=== PATIENT | male | born 1955 | race Caucasian/White ===

== ENCOUNTER 2017-01-13 11:36 | Inpatient (IN) | payer OTHER ==
[~2017-01-13] VITALS: Ht 182.9 cm; Wt 142.9 kg
[~2017-01-13 11:36] MED LIST: AMIODARONE HCL200 M1 PO; ATORVASTATIN CA40 MG PO; CEPHALEXIN500 M3 PO; CIPRO500 M1 PO; COLACE100 M1 PO; COUMADIN10 M1 PO; COUMADIN7.5 M1 PO; FENOFIBRATE160 M1 PO; FLOVENT HF0.22 MG/Ac INH; GABAPENTIN600 M1 PO; IBUPROFEN800 M1 PO; LASIX40 M1 PO; LEVALBUTER1.25 MG/1 PO; LEVEMIR100 UNIT/1 SC; METFORMIN HCL1000 MG PO; METFORMIN HCL850 M1 PO; MIRALAX119 GM PO; NOVOLOG FL100 UNIT/1 SC; OXYCODONE5 M1 PO; PERCOCET 5-3251 EACH PO; POTASSIUM CHLO10 ME3 PO; PREDNISONE10 M2 PO; PRINIVIL5 M1 PO; SENNA PLUS TAB1 EACH PO; SYMBICORT 16010.2 GM INH; TOBRAMYCIN-DEXAM5 ML OPH; TRAMADOL HCL50 M1 PO; TYLENOL325 M1 PO
--- NOTE | 2017-01-13 11:42 | NUR ---
PT TO ED, SENT IN BY DR GARSIA FOR SOB. PT WENT TO SEE DR GARSIA FOR "NORMAL CHECKUP". PT WAS NOTICABLY SOB. PT IS ON 1.5L NC. PT STATES THE LAST 3 DAYS HE HAS BEEN MORE SOB, WORSE WITH EXERTION. UNABLE TO WALK DISTANCES. ALSO C/O WEIGHT GAIN AND EDEMA. ALSO STATES BACK PAIN S/P TRIP AND FALL [address] GARSIA WOULD LIKE TO BE CALLED ABOUT PT.
--- NOTE | 2017-01-13 12:01 | ED DYSPNEA/ASTHMA COMPLAINT ---
History of Present Illness General Chief Complaint: Dyspnea (COPD, CHF, Other) Stated Complaint: SENT BY DR GARSIA FOR EVAL OF SOB Source: patient, old records Exam Limitations: no limitations Vital Signs & Intake/Output Vital Signs & Intake/Output Vital Signs Date Time Temp Pulse Resp B/P Pulse O2 O2 Flow FiO2 Ox Delivery Rate 01/13 1716 98.0 95 18 160/80 93 Nasal 1.5L Cannula 01/13 1607 97.8 86 18 170/56 92 Nasal 1.5L Cannula 01/13 1354 96 Nasal 1.5L Cannula 01/13 1335 96.1 77 18 158/95 95 Nasal 1.5L Cannula 01/13 1208 95 Nasal 1.5L Cannula 01/13 1143 96.7 79 26 173/105 95 Room Air Allergies Coded Allergies: NO KNOWN ALLERGIES (08/21/16) Triage Note: PT TO ED, SENT IN BY DR GARSIA FOR SOB. PT WENT TO SEE DR GARSIA FOR "NORMAL CHECKUP". PT WAS NOTICABLY SOB. PT IS ON 1.5L NC. PT STATES THE LAST 3 DAYS HE HAS BEEN MORE SOB, WORSE WITH EXERTION. UNABLE TO WALK DISTANCES. ALSO C/O WEIGHT GAIN AND EDEMA. ALSO STATES BACK PAIN S/P TRIP AND FALL [address] GARSIA WOULD LIKE TO BE CALLED ABOUT PT. Triage Nurses Notes Reviewed? yes Onset: Abrupt Duration: day(s): (3), constant Timing: recent history Severity: moderate Activities at Onset: activity Prior Episodes/Possible Cause: occasional episodes Modifying Factors: Improves With: rest. Worsens With: movement. Associated Symptoms: cough, weight gain HPI: This is a 61-year-old male with history of CAD s/p IA and stent placement in 2003, Afibon amiodarone and Warfarin, PVD, HTN, type 2 DM with neuropathy, CHF, TOMASZ, Puln HTN, chr. venous insufficiency presents emergency room sent in by his community affairs manager Dr. Garsia complaining of progressively worsening shortness of breath that is worse with exertion associated with increased weight gain bilateral lower extremity swelling over the past 3 days. He is also complaining of a cough productive of clear sputum. He denies chest pain palpitations dizziness lightheadedness, no fever no chills. The patient is on 1-1/2 L of oxygen at baseline, he does not smoke. Denies any abdominal pain nausea vomiting. There's been no recent changes in his medication he's been compliant with his Lasix 40 mg. Symptoms are worse with exertion and climbing stairs improved at rest. There are no other associated symptoms. (IRINEO WEBB) Reconcile Medications Amiodarone HCl 200 MG TABLET 1 TAB PO DAILY AFIB (Reported) Aspirin (Ecotrin*) 81 MG TABLET.DR 1 TAB PO DAILY HEART/BLOOD (Reported) Atorvastatin Calcium 40 MG TABLET 1 TAB PO DAILY CHOLESTEROL (Reported) Budesonide/Formoterol Fumarate (Symbicort 160-4.5 Mcg Inhaler) 10.2 GM HFA.AER.AD 2 PUF INH BID COPD Carvedilol 25 MG TABLET 1 TAB PO BID HEART (Reported) Cholecalciferol (Vitamin D3) (Vitamin D) 2,000 UNIT TABLET 1 TAB PO DAILY SUPPLEMENT (Reported) Cyanocobalamin (Vitamin B-12) (Vitamin B-12) 2,000 MCG TABLET 1 TAB PO DAILY SUPPLEMENT (Reported) Docusate Sodium (Colace) 100 MG CAPSULE 1 CAP PO BID PRN Constipation Fenofibrate 160 MG TABLET 1 TAB PO DAILY CHOLESTEROL (Reported) Fluticasone Propionate (Flovent Hfa) (Unknown Strength) AER.W.ADAP (Unknown Dose) UNKNOWN (Reported) Furosemide (Lasix) 40 MG TABLET 1 TAB PO BID CHF (Reported) Gabapentin 600 MG TABLET 1 TAB PO TID NEUROPATHY (Reported) Insulin Aspart, Recombinant (Novolog Flexpen) 100 UNIT/1 ML INSULN.PEN 0 SC TIDAC/HS DIABETES BLOOD SUGAR BEFORE MEALS UNITS BEDTIME LESS THAN 80 INITIATE HYPOGLYCEMIA 80-150 16 UNITS 151-200 18 UNITS 201-250 20 UNITS 251-300 22 UNITS 4 UNITS 301-350 24 UNITS 6 UNITS 351-400 26 UNITS 8 UNITS 351-400 26 UNITS, CALL 10 UNITS, CALL Insulin Detemir (Levemir Flextouch) 100 UNIT/ML (3 ML) INSULN.PEN 25 UNITS SC BID DM (Reported) Levalbuterol HCl 1.25 MG/3 ML VIAL.NEB 1 INH PO Q4 BREATHING PROBLEMS ( Reported) Lisinopril (Prinivil) 5 MG TABLET 1 TAB PO DAILY HTN (Reported) Metformin HCl 850 MG TABLET 850 MG PO 0800,1700 diabetes Polyethylene Glycol 3350 (Miralax) 119 GM POWDER 17 GM PO AT BEDTIME PRN CONSTIPATION Potassium Chloride 10 MEQ CAPSULE.ER 1 CAP PO DAILY SUPPLEMENT (Reported) Warfarin Sodium (Coumadin) 10 MG TABLET 1 TAB PO AD BLOOD THINNER (Reported) (IRIS SWARTZ DO) Past History Travel History Traveled to [place] past 21 day No Medical History Any Pertinent Medical History? see below for history Neurological: NONE EENT: NONE Cardiovascular: AFIB, CAD, chronic venous insuff, hypertension, hyperlipidemia, myocardial infarction, STENT 2003 Respiratory: bronchitis, COPD, emphysema, obstructive sleep apnea, 02 1.5 L Gastrointestinal: NONE Hepatic: NONE Renal: NONE Musculoskeletal: degen joint disease Psychiatric: NONE Endocrine: diabetes Blood Disorders: DVT LLE Cancer(s): NONE FIRE RANGER/Reproductive: NONE History of MRSA: No History of VRE: No History of CDIFF: No Pneumonia Vaccine: 10/05/09 Surgical History Surgical History: cholecystectomy, knee replacement (left knee), status post aborted maze procedure b/l LE venous sclerotherapy Psychosocial History Who do you live with Family Services at Home Oxygen What is your primary language Occitan Tobacco Use: Quit >30 days ago ETOH Use: denies use Illicit Drug Use: denies illicit drug use Family History Family History, If Any: FATHER FH: heart attack FH: HTN (hypertension) MOTHER FH: heart attack FH: HTN (hypertension) FHx: stroke SISTER FH: breast cancer FH: CHF (congestive heart failure) Hx Contributory? No (IRINEO WEBB) Review of Systems Review of Systems Constitutional: Reports: see HPI. All Other Systems: Reviewed and Negative Comments Review of systems: See HPI, All other systems negative. Constitutional, no chills no fever, no malaise HEENT: no sore throat no congestion, no ear pain Cardiovascular: No chest pain , no palpitation , orthopnea ankle swelling Skin, no rashes, no change in skin Respiratory: dyspnea no cough no sputum no hemoptysis GI: No nausea no vomiting, no diarrhea, no bloating/constipation : No dysuria No hematuria, Muscle skeletal: No joint pain, no joint swelling, no back pain, no neck pain, Neurologic: No numbness no headache Psych: No stress Heme/endocrine: No bruising no bleeding Immunology: No lymphadenopathy (IRINEO WEBB) Physical Exam Physical Exam General Appearance: well developed/nourished, alert, awake Respiratory: normal breath sounds Comments: Well-developed well-nourished person in no acute distress HEENT: Normal EENT exam; PERRL, EOMI HEAD is atraumatic. moist mucous membranes. Neck: Supple,normal range of motion Back: Nontender, no CVA tenderness. Full range of motion Cardiovascular: Irregular rate and rhythm no murmurs rubs or gallops Respiratory: No respiratory distress. Patient speaking in full complete sentences. Breath sounds clear to auscultation bilaterally: NO W/R/R Abdomen: Soft, nontender nondistended, no appreciable organomegaly. Normal bowel sounds. No rebound/guarding, No appreciable enlargement of the abdominal aorta, No ascites. Extremity: 3+ bilateral lower extremity edema, full range of motion of extremities, normal and equal pulses bilaterally, 5 out of 5 strength noted to bilateral upper and lower extremities Neuro: Alert oriented x3, motor sensory normal, cranial nerves II through XII grossly intact. There were no obvious focal neurologic abnormalities. Skin: No appreciable rash on exposed skin, skin is warm and dry. Psych: Mood and affect is normal, memory and judgment is normal. Core Measures ACS in differential dx? Yes Severe Sepsis Present: No Septic Shock Present: No (ARTURO WORKMAN,IRINEO) Progress Differential Diagnosis: asthma, AMI, bronchitis, costochondritis, CHF, COPD, musculoskeletal pain, pericarditis, pulmonary embolism, pneumonia, pneumothorax, unstable angina Plan of Care: Orders Procedure Date/time Status BASIC ELECTROLYTES PLUS BUN&CR 01/14 0600 Active CHF Diet 01/13 D Active EKG 01/13 1830 Active TROPONIN LEVEL 01/13 1630 Active Pathway - chart 01/13 1457 Active House Staff 01/13 1457 Active Admit to inpatient 01/13 1435 Active Vital Signs 01/13 1435 Active Code Status 01/13 1435 Active Patient Data 01/13 1413 Active Add-on Test (ER Only) 01/13 1325 Active PARTIAL THROMBOPLASTIN TIME 01/13 1215 Complete PROTHROMBIN TIME 01/13 1215 Complete Telemetry/Right Of Way Agent 01/13 1212 Active TROPONIN LEVEL 01/13 1212 Complete COMPREHENSIVE METABOLIC PANEL 01/13 1212 Complete CBC WITHOUT DIFFERENTIAL 01/13 1212 Complete B-TYPE NATRIURETIC PEP (BNP) 01/13 1212 Complete EKG 01/13 1211 Active Saline Lock 01/13 UNK Active Weight 01/13 UNK Active VTE Mechanical Prophylaxis 01/13 UNK Active Intake & Output 01/13 UNK Active Activity/Ambulation 01/13 UNK Active Current Medications Sig/Ann-Marie Start time Last Medication Dose Stop Time Status Admin Furosemide 40 MG DAILY 01/14 1000 AC (Lasix) Laboratory Tests 01/13/17 1215: Anion Gap 10, Estimated GFR > 60, BUN/Creatinine Ratio 31.3 H, Glucose 89, Calcium 9.3, Total Bilirubin 0.9, AST 23, ALT 33, Alkaline Phosphatase 75, Troponin I < 0.01, Tjz-C-Zhafqlrmlko Pept 1350 H, Total Protein 6.4, Albumin 3.7, Globulin 2.7, Albumin/Globulin Ratio 1.4, PT 60.1 *H, INR 5.82 *H, APTT 52 H, CBC w Diff NO MAN DIFF REQ, RBC 4.80, MCV 84.9, MCH 28.4, RDW 15.4 H, MPV 8.9, Gran % 71.6, Lymphocytes % 14.8 L, Monocytes % 6.6, Eosinophils % 6.2 H, Basophils % 0.8, Absolute Granulocytes 4.5, Absolute Lymphocytes 0.9 L, Absolute Monocytes 0.4, Absolute Eosinophils 0.4, Absolute Basophils 0, PUBS MCHC 33.4 Labs ordered alert. Chest x-ray lumbar spine x-ray ordered Lasix 40 mg IV Solu- Medrol breathing treatment ordered On repeat evaluation patient reports pain is improved, patient was declining lumbar x-ray is lab results, pending callback from his community affairs manager (ARTURO WORKMAN,IRINEO) Diagnostic Imaging: Viewed by Me: Radiology Read. Discussed w/RAD: Radiology Read. Radiology Impression: PATIENT: LYNETTE SMITH PRESENT AGE: 61 PATIENT ACCOUNT NO: [id number] : 55 LOCATION: [facility] ORDERING PHYSICIAN: IRINEO WORKMAN SERVICE DATE: 01/13/17 EXAM TYPE: RAD - XRY-CHEST XRAY, PA AND LATERAL EXAMINATION: XR CHEST CLINICAL INFORMATION: Cough and dyspnea, evaluate for congestive heart failure. COMPARISON: 08/20/2016 , TECHNIQUE: 2 views of the chest were obtained. FINDINGS: The heart remains enlarged with mild cephalization of the pulmonary vasculature and subtle diffuse increase in interstitial markings which appears slightly increased compared with the most recent examination suggesting mild pulmonary edema. No definite pleural effusions are identified. No focal infiltrate is seen. IMPRESSION: Mild pulmonary edema is suggested slightly increased from the most recent exam. No focal infiltrate to suggest pneumonia. DICTATED BY: CLIFFORD CALLE MD DATE/ TIME DICTATED:01/13/171330 MANAGEMENT LECTURER:SONDRA DATE/TIME TRANSCRIBED: 01/13/171330 CONFIDENTIAL, DO NOT COPY WITHOUT APPROPRIATE AUTHORIZATION. < Electronically signed in Other Vendor System> SIGNED BY: CLIFFORD CALLE MD 01/13/171338 Initial ED EKG: AFIB AT 70, NO ACUTE ST SEG CHANGES, NORMAL AXIS Prior EKG: unchanged (07/2016) (IRINEO WEBB) Departure Departure Time of Disposition: 1409 Disposition: STILL A PATIENT Condition: Stable Clinical Impression Primary Impression: CHF exacerbation Referrals: Mike GARSIA MD (PCP/Family) Departure Forms: Customer Survey General Discharge Information Admission Note Spoke With: Mike GARSIA MD Documentation of Exam: Documentation of any treatments & extenuating circumstances including Concerns Regarding Discharge (functional status, medication knowledge or non-compliance, living conditions, etc.) that warrant an admission rather than observation: TREND LABS, TROPONIN, CARDIOLOGY, PULM CONSULT, IV DIURESIS, PREAMTURE DISCHARGE WOULD BE MEDICALLY HARMFUL. (IRINEO WEBB) PA/SURGERY NURSE Co-Sign Statement Statement: ED Attending supervision documentation- [X] I saw and evaluated the patient. I have also reviewed all the pertinent lab results and diagnostic results. I agree with the findings and the plan of care as documented in the PA's/SURGERY NURSE's documentation. [] I have reviewed the ED Record and agree with the PA's/SURGERY NURSE's documentation. [] Additions or exceptions (if any) to the PAs/SURGERY NURSE's note and plan are summarized below: [] (IRIS SWARTZ DO) Critical Care Note Critical Care Note Critical Care Time: non-applicable (IRINEO WEBB)
--- NOTE | 2017-01-13 12:07 | NUR ---
PT TO ROOM17 BY WHEELCHAIR, CHANGED INTO HOSPITAL GOWN, PLACED ON OCCUPATIONAL HEALTH PHYSIOTHERAPIST, O2SAT 95% ON O2 1.5L LAYLA. JI MORRIS AT BEDSIDE FOR PT EVAL.
[2017-01-13 12:21] LABS: ABSOLUTE BASOPHIL COUNT 0 /CUMM (0.0-0.2); ABSOLUTE EOSINOPHIL COUNT 0.4 /CUMM (0.0-0.7); ABSOLUTE GRANULOCYTE CT 4.5 /CUMM (1.4-6.5); ABSOLUTE LYMPH COUNT 0.9 /CUMM (1.2-3.4); ABSOLUTE MONOCYTE COUNT 0.4 /CUMM (0.10-0.60); BASOPHIL % 0.8 % (0.0-2.0); EOSINOPHIL % 6.2 % (0-5); GRANULOCYTE % 71.6 % (42.2-75.2); HEMATOCRIT 40.8 % (42-52); MEAN CORPUSCULAR HGB 28.4 PG (27.0-31.0); MEAN CORPUSCULAR HGB CONC 33.4 G/DL (33.0-37.0); MEAN CORPUSCULAR VOLUME 84.9 FL (80.0-94.0); MEAN PLATELET VOLUME 8.9 FL (7.4-10.4); PLATELET COUNT 215 /CUMM (130-400); RBC DISTRIBUTION WIDTH 15.4 % (11.5-14.5); WHITE BLOOD CELL COUNT 6.2 /CUMM (4.8-10.8)
--- NOTE | 2017-01-13 12:38 | NUR ---
BLOOD DRAWN AND SENT TO LAB-SST,LAV,BLUE,HUNG. IV EST RF G20, PT MEDICATED PER EMAR AND SENT TO RAD BY STRETCHER.
--- NOTE | 2017-01-13 13:04 | NUR ---
PT RETURNED FROM RAD, URINAL PROVIDED.
--- NOTE | 2017-01-13 13:26 | NUR ---
JI MORRIS TO BEDSIDE TO DISCUSS TEST RESULTS AND POC.
--- NOTE | 2017-01-13 13:33 | NUR ---
RESP CALLED FOR DUONEB, FOOD ORDERED.
--- NOTE | 2017-01-13 13:39 | RADIOLOGY REPORT ---
EXAMINATION: XR CHEST CLINICAL INFORMATION: Cough and dyspnea, evaluate for congestive heart failure. COMPARISON: 08/20/2016, TECHNIQUE: 2 views of the chest were obtained. FINDINGS: The heart remains enlarged with mild cephalization of the pulmonary vasculature and subtle diffuse increase in interstitial markings which appears slightly increased compared with the most recent examination suggesting mild pulmonary edema. No definite pleural effusions are identified. No focal infiltrate is seen. IMPRESSION: Mild pulmonary edema is suggested slightly increased from the most recent exam. No focal infiltrate to suggest pneumonia.
[2017-01-13 13:50] LABS: PTT 52 SEC (25-37)
--- NOTE | 2017-01-13 13:50 | NUR ---
RESP AT BEDSIDE FOR DUONEB.
[2017-01-13 14:07] LABS: PT 60.1 SEC (9.4-12.5)
--- NOTE | 2017-01-13 14:07 | NUR ---
CRITICAL TEST RESULTS [id number] LYNETTE SMITH 61 M TESTS AND RESULTS: PT 60.1 INR 5.82 Results received and read back by: YUNIOR CARTER Results received date and time: 01/13/17 1407 The following provider was notified of the results, and read the results back: JI MORRIS Notified date and time: 01/13/17 at 1407
--- NOTE | 2017-01-13 14:20 | NUR ---
FOOD TRAY PROVIDED TO PT.
--- NOTE | 2017-01-13 14:21 | History & Physical ---
CIARRA ELIAS MDRIE 01/13/17 1416: General Information and HPI MD Statement: I have seen and personally examined LYNETTE SMITH and documented this H&P. The patient is a 61 year old M who presented with a patient stated chief complaint of [SOB]. 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 venous insufficiency, was sent in from Dr. Serrato's office for worsening dyspnea. His shortness of breath worsened about 4 days ago to the point that he was not to walk even a couple of steps. He has not been able to sleep and eat for 1.5 days because of the dyspnea. He has approximately 15 lb weight gain over the past 4 days. Nothing makes the dyspnea better. He also used his nebulizer and inhalers without any relief. He also had cough productive of thick dark green sputum that started 3-4 days ago without fever, chills, or sick contacts. He has not seen Dr. Esparza since prior admission in July. 3 days ago, he tripped on the dog's bed while he was walking in the dark, and hit the left side of his back, and has a small laceration over his right knee. He denied loss of consciousness or palpitations. He is convinced that it was purely a mechanical fall. He has had 9/10 constant nagging back pain since the fall and has been taking aleve and percocet to help with the pain. Allergies/Medications Allergies: Coded Allergies: NO KNOWN ALLERGIES (08/21/16) Past History Travel History Traveled to [place] past 21 day No Medical History Neurological: NONE EENT: NONE Cardiovascular: AFIB, CAD, chronic venous insuff, hypertension, hyperlipidemia, myocardial infarction, STENT 2003 Respiratory: bronchitis, COPD, emphysema, obstructive sleep apnea, 02 1.5 L Gastrointestinal: NONE Hepatic: NONE Renal: NONE Musculoskeletal: degen joint disease Psychiatric: NONE Endocrine: diabetes Blood Disorders: DVT LLE Cancer(s): NONE HELICOPTER DISPATCHER/Reproductive: NONE History of MRSA: No History of VRE: No History of CDIFF: No Pneumonia Vaccine: 10/05/09 Surgical History Surgical History: cholecystectomy, knee replacement (left knee), status post aborted maze procedure b/l LE venous sclerotherapy Past Family/Social History Family History Relations & Conditions if any FATHER FH: heart attack FH: HTN (hypertension) MOTHER FH: heart attack FH: HTN (hypertension) FHx: stroke SISTER FH: breast cancer FH: CHF (congestive heart failure) Psychosocial History Who Do You Live With? spouse Services at Home: Oxygen Primary Language: Kosovan ETOH Use: denies use Illicit Drug Use: denies illicit drug use Living Will? no Power of Outpatient Interviewing Clerk/HCP? no Functional Ability ADLs Independent: dressing, eating, toileting, bathing. Ambulation: cane IADLs Independent: shopping, housework, finances, food prep, telephone, transportation , medication admin. Review of Systems Review of Systems Constitutional: Denies: chills, fever. EENTM: Denies: double vision, visual changes. Cardiovascular: Reports: edema, orthopena, peripheral edema. Denies: chest pain, palpitations. Respiratory: Reports: cough, short of breath, sputum production. Denies: wheezing. GI: Denies: abdominal pain, bloating, constipation, diarrhea, nausea, vomiting. Genitourinary: Denies: dysuria. Exam & Diagnostic Data Last 24 Hrs of Vital Signs/I&O Vital Signs Date Time Temp Pulse Resp B/P Pulse O2 O2 Flow FiO2 Ox Delivery Rate 01/13 1607 97.8 86 18 170/56 92 Nasal 1.5L Cannula 01/13 1354 96 Nasal 1.5L Cannula 01/13 1335 96.1 77 18 158/95 95 Nasal 1.5L Cannula 01/13 1208 95 Nasal 1.5L Cannula 01/13 1143 96.7 79 26 173/105 95 Room Air Intake & Output 01/13 1600 01/13 0800 01/13 0000 Intake Total Output Total Balance Patient 138.346 kg Weight Physical Exam General Appearance Alert, Oriented X3, Cooperative, noticably dyspneic sitting at the edge of the bed Skin dry blister on right klein, healing laceration on right knee, venous insufficiency changes HEENT Atraumatic, PERRLA Neck Supple, No JVD Cardiovascular Regular Rate, Normal S1, Normal S2, No Murmurs Lungs Clear to Auscultation, Normal Air Movement Abdomen Normal Bowel Sounds, Soft, No Tenderness Neurological Normal Speech Extremities 3+ pitting edema bilaterally up to the knees Last 24 Hrs of Labs/[place]: Laboratory Tests 01/13/17 1215: Anion Gap 10, Estimated GFR > 60, BUN/Creatinine Ratio 31.3 H, Glucose 89, Calcium 9.3, Total Bilirubin 0.9, AST 23, ALT 33, Alkaline Phosphatase 75, Troponin I < 0.01, [id number] Pept 1350 H, Total Protein 6.4, Albumin 3.7, Globulin 2.7, Albumin/Globulin Ratio 1.4, PT 60.1 *H, INR 5.82 *H, APTT 52 H, CBC w Diff NO MAN DIFF REQ, RBC 4.80, MCV 84.9, MCH 28.4, RDW 15.4 H, MPV 8.9, Gran % 71.6, Lymphocytes % 14.8 L, Monocytes % 6.6, Eosinophils % 6.2 H, Basophils % 0.8, Absolute Granulocytes 4.5, Absolute Lymphocytes 0.9 L, Absolute Monocytes 0.4, Absolute Eosinophils 0.4, Absolute Basophils 0, PUBS MCHC 33.4 Diagnostic Data EKG Results A fib rate 75 CXR Results IMPRESSION: Mild pulmonary edema is suggested slightly increased from the most recent exam. No focal infiltrate to suggest pneumonia. 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 venous insufficiency, was sent in from Dr. Serrato's office for worsening dyspnea, 15 lb weight gain, cough productive of thick green sputum, and mechanical fall. Problem list: # CHF exacerbation with 15 lb weight gain, increased dyspnea # COPD on 1.5 L O2, with thick green sputum # Back pain due to mechanical fall # CHF exacerbation with 15 lb weight gain, increased dyspnea - sleeps on recliner at baseline * Strict Is and Os * IV lasix (home dose 40 mg PO) # COPD on 1.5 L O2, with thick green sputum * Follow respiratory culture, gram stain * Will consult Dr. Esparza in am * TRC, nebs, symbicort # TOMASZ * Supposed to be on autopap but not compliant # Back pain due to mechanical fall * Pain control with percocet and NSAID # IDDM - Home metformin, novolog, and levemir * Follow up hba1c * Continue accucheck, insulin sliding scale and levemir # Atrial fibrillation * Continue amiodarone 200 mg daily * INR 5.82-Hold warfarin for today # Hx of CAD s/p NV & stent placement and HTN * Continue Lisinopril 5 mg daily # DM neuropathy * continue Neurontin 600 TID # HLD * Continue statin # Constipation * Continue colace, miralax Diet: CC3, 2 gm sodium restriction DVT ppx: mech and pharm (hold warfarin for supratherapeutic INR) FULL CODE As Ranked By This Provider Problem List: 1. CHF exacerbation Core Measures/Miscellaneous Acute Coronary Syndrome ACS Diagnosis: No Cerebrovascular Accident CVA/TIA Diagnosis: No Congestive Heart Failure CHF Diagnosis: Yes Venous Thromboembolism VTE Risk Factors: Acute medical illness VTE Prophylaxis Ordered Inpt: Mech & Pharm No Mech VTE prophylaxis d/t: No contraindications No VTE Pharm Prophylaxis d/t: No contraindications VTE Diagnosis: No VTE Type: NONE VTE Confirmed by (Test): NONE Severe Sepsis Severe Sepsis Present: No Septic Shock Septic Shock Present: No Miscellaneous Documentation Attending Case Discussed With: Mike SERRATO MD Primary Care Physician: Mike SERRATO MD Patient sees these Specialists Dr. Esparza Pulmonology Dr. 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 Patient was at Dr. serrato office today, he noticed to be SOB, and worsening LE edema. Patient report worsening symptoms over the last 3 days, he report chest congestion, he induce hisself to cough and he brought up white phlegm initially which turns green with no blood. No chest pain, palpitation, fever, chills and there is no change in urianry or bowel habits. At admission his vitals was stable, he is on 1.5L NC with 95% O2 sat, BP was 173 /105 initially which improved to 158/95. Exam is pertinent to B/L basilar crackles and +3 edema CXR:Mild pulmonary edema is suggested slightly increased from the most recent exam. No focal infiltrate to suggest pneumonia. Assessment: -CHF exacerbation -COPD on 1.5L O2 at home -Hx. of A.fib -Supratherpaeutic INR -Hx. of HTN -Hx. of HLD -Hx. of diabetes Plan: Admitt to telemetry floor Trend EKG and troponin Echocardiogram Pulmonology consult with Strict I's&O's Daily weight Continue diuresis Will continue BP home meds Coumadin on hold Accucheck Insulin sliding scale Heart healthy diet Pain management pathway Full code DVT PPX BETSEY SERRATO MD,LETICIA N 01/14/17 1233: General Information and HPI Allergies/Medications Home Med list Amiodarone HCl 200 MG TABLET 1 TAB PO DAILY AFIB (Reported) Aspirin (Ecotrin*) 81 MG TABLET.DR 1 TAB PO DAILY HEART/BLOOD (Reported) Atorvastatin Calcium 40 MG TABLET 1 TAB PO DAILY CHOLESTEROL (Reported) Budesonide/Formoterol Fumarate (Symbicort 160-4.5 Mcg Inhaler) 10.2 GM HFA.AER.AD 2 PUF INH BID COPD Carvedilol 25 MG TABLET 1 TAB PO BID HEART (Reported) Cholecalciferol (Vitamin D3) (Vitamin D) 2,000 UNIT TABLET 1 TAB PO DAILY SUPPLEMENT (Reported) Cyanocobalamin (Vitamin B-12) (Vitamin B-12) 2,000 MCG TABLET 1 TAB PO DAILY SUPPLEMENT (Reported) Docusate Sodium (Colace) 100 MG CAPSULE 1 CAP PO BID PRN Constipation Fenofibrate 160 MG TABLET 1 TAB PO DAILY CHOLESTEROL (Reported) Fluticasone Propionate (Flovent Hfa) (Unknown Strength) AER.W.ADAP (Unknown Dose) UNKNOWN (Reported) Furosemide (Lasix) 40 MG TABLET 1 TAB PO BID CHF (Reported) Gabapentin 600 MG TABLET 1 TAB PO TID NEUROPATHY (Reported) Insulin Aspart, Recombinant (Novolog Flexpen) 100 UNIT/1 ML INSULN.PEN 0 SC TIDAC/HS DIABETES BLOOD SUGAR BEFORE MEALS UNITS BEDTIME LESS THAN 80 INITIATE HYPOGLYCEMIA 80-150 16 UNITS 151-200 18 UNITS 201-250 20 UNITS 251-300 22 UNITS 4 UNITS 301-350 24 UNITS 6 UNITS 351-400 26 UNITS 8 UNITS 351-400 26 UNITS, CALL MD 10 UNITS, CALL MD Insulin Detemir (Levemir Flextouch) 100 UNIT/ML (3 ML) INSULN.PEN 25 UNITS SC BID DM (Reported) Levalbuterol HCl 1.25 MG/3 ML VIAL.NEB 1 INH PO Q4 BREATHING PROBLEMS ( Reported) Lisinopril (Prinivil) 5 MG TABLET 1 TAB PO DAILY HTN (Reported) Metformin HCl 850 MG TABLET 850 MG PO 0800,1700 diabetes Nicotine (Nicoderm Cq) 14 MG/24 HOUR PATCH.TD24 1 PAT TOP DAILY smoking cessation Polyethylene Glycol 3350 (Miralax) 119 GM POWDER 17 GM PO AT BEDTIME PRN CONSTIPATION Potassium Chloride 10 MEQ CAPSULE.ER 1 CAP PO DAILY SUPPLEMENT (Reported) Warfarin Sodium (Coumadin) 10 MG TABLET 1 TAB PO AD BLOOD THINNER (Reported) Attending MD Review Statement Attending Statement Attending MD Statement: examined this patient, discuss w/resident/PA/MANPOWER DEVELOPMENT MANAGER, agreed w/resident/PA/MANPOWER DEVELOPMENT MANAGER, discussed with family, reviewed EMR data (avail), discussed with nursing, discussed with case mgmt, reviewed images, amended to note Attending Assessment/Plan: The patient is a 61-year-old male with multiple medical issues who is well-known to me. I saw the patient in the office earlier today. At that time, he was dramatically short of breath with marked exertional dyspnea and dyspnea at rest, unable to carry on a conversation without shortness of breath. The patient was sent to the emergency room for further evaluation. In the emergency room, the patient's chest x-ray confirmed presence of congestive heart failure. The patient is now admitted to the hospital with obvious fluid retention, probable diastolic heart failure, and exacerbation of underlying pulmonary disease issues. Recommendations: -As discussed with house staff -Admit patient to telemetry -IV Lasix 40 mg twice a day -Hold laboratories in the morning -Strict intakes, outputs, and daily weight monitoring -Pulmonary consultation with Dr. Esparza has been called in by me. -Continue nebulizers for now pending pulmonary input -Pain control for back pain issues.
--- NOTE | 2017-01-13 14:48 | NUR ---
HOUSE STAFF AT BEDSIDE FOR PT EVAL.
--- NOTE | 2017-01-13 15:16 | NUR ---
PT HAS BED ASSIGNMENT 185-1
[2017-01-13] MEDS ORDERED: LEVEMIR FL100 UNIT/1 SC (15:31)
[2017-01-13] MEDS ORDERED: CARVEDILOL25 M1 PO (15:33)
[2017-01-13] MEDS ORDERED: COUMADIN10 M1 PO (15:33)
[2017-01-13] MEDS ORDERED: FLOVENT HFA12 GM (15:35)
[2017-01-13] MEDS ORDERED: ASPIRIN EC81 M1 PO (15:36)
[2017-01-13] MEDS ORDERED: ATORVASTATIN CA40 M1 PO (15:36)
[2017-01-13] MEDS ORDERED: VITAMIN D2000 UNI1 PO (15:37)
[2017-01-13] MEDS ORDERED: VITAMIN B-122000 MC1 PO (15:37)
--- NOTE | 2017-01-13 16:12 | NUR ---
REPORT GIVEN TO JOSE ROSAS IN TELE, DISTRIBUTION CALLED FOR TRANSPORTATION.
[2017-01-13 17:16] VITALS: BP 160/80
--- NOTE | 2017-01-13 19:47 | NUR ---
PT TRANSFERED TO IN FROM ER ON 01/13/17 AT ABOUT 1700. PT IS A/O X3. SPEECH CLEAR. FACIAL SYM WNL. HE IT ON 1.5 L O2 NC. PT IS SOB UPON AMBULATION. HE IS STEADY WALKING WITH CANE. PT REFUSSED BED ALARM- JEWEL SUPERVISOR KO AWARE. 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 +2 PITTING EDEMA OF BLE. IV TO RFA FLUSHED/PATENT. + BS IN ALL 4 QUADRENTS. WELCOME PACKET RECIEVED BY PT. BRYANNA MAINTAINED. CALL POWERS WITHIN REACH.
[2017-01-14 00:12] VITALS: BP 120/60
--- NOTE | 2017-01-14 06:40 | PN- Housestaff ---
Subjective Follow-up For: CHF exacerbation back pain Tele-Events Since Last Visit: Afib 70-80s, with PVCs Subjective: Pt seen and examined today, shortness of breath has improved. He complains of 10/10 back pain, which came down to 7.5 after po dilaudid. As discussed with the attending, Dr. Cosby, pt has agreed to try percocet and NSAID for pain as he will not be prescribed dilaudid as an outpatient. LBM yesterday. He was only able to sleep for about 30 minutes. INR came down, dosed warfarin 7.5 mg today. Review of Systems Constitutional: Denies: chills, fever. EENTM: Denies: visual changes. Cardiovascular: Denies: chest pain, palpitations. Respiratory: Reports: cough, short of breath, sputum production, wheezing. Gastrointestinal: Denies: abdominal pain, bloating, constipation, diarrhea. Objective Last 24 Hrs of Vital Signs/I&O Vital Signs Date Time Temp Pulse Resp B/P Pulse O2 O2 Flow FiO2 Ox Delivery Rate 01/14 1153 96 Nasal 1.5L Cannula 01/14 1006 Nasal 1.5L Cannula 01/14 0949 66 142/67 01/14 0949 66 142/67 01/14 0948 66 142/67 01/14 0811 97.9 66 17 142/67 96 Nasal 1.5L Cannula 01/14 0012 97.5 82 18 120/60 92 Room Air 01/14 0000 Nasal 1.5L Cannula 01/13 2051 95 160/80 01/13 2051 95 160/80 01/13 1759 95 Nasal 1.5L Cannula 01/13 1716 98.0 95 18 160/80 93 Nasal 1.5L Cannula 01/13 1607 97.8 86 18 170/56 92 Nasal 1.5L Cannula Intake & Output 01/14 1600 01/14 0800 01/14 0000 Intake Total 240 320 Output Total 600 1560 Balance -360 -1240 Intake, IV 20 Intake, Oral 240 300 Output, Urine 600 1560 Patient 147.077 kg 142.882 kg Weight Physical Exam General Appearance: Alert, Oriented X3, Cooperative, No Acute Distress Skin: chronic venous insufficiency changes HEENT: Atraumatic, PERRLA Neck: Supple Cardiovascular: Normal S1, Normal S2, irregular rate Lungs: mild exp wheeze Abdomen: Normal Bowel Sounds, Soft, No Tenderness Neurological: Normal Speech Extremities: 3+ pitting edema bilaterally up to the knees, improved from yesterday Vascular: Normal Pulses Current Medications: Current Medications Sig/Ann-Marie Start time Last Medication Dose Route Stop Time Status Admin Acetaminophen 650 MG Q6P PRN 01/13 2015 AC PO Albuterol Sulfate 3 ML BID 01/14 1030 AC 01/14 INH 1139 Amiodarone HCl 200 MG DAILY 01/14 1000 AC 01/14 PO 0948 Aspirin Buffered 81 MG DAILY 01/14 1000 AC 01/14 PO 0949 Atorvastatin Calcium 40 MG 1700 01/14 1700 AC PO Azithromycin 250 MG DAILY 01/14 1415 AC PO 01/18 1200 Budesonide/ 2 PUF BID 01/13 2200 AC 01/14 Formoterol Fumarate INH 0948 Carvedilol 25 MG BID 01/13 2200 AC 01/14 PO 0949 Cholecalciferol 1,000 IU DAILY 01/14 1000 AC 01/14 PO 0949 Cyanocobalamin 1,000 MCG DAILY 01/14 1000 AC 01/14 PO 0949 Fenofibrate 145 MG DAILY 01/14 1000 AC 01/14 PO 0949 Furosemide 40 MG DAILY 01/14 1000 AC 01/14 IV 0948 Gabapentin 600 MG Q8 01/13 2200 AC 01/14 PO 1500 Hydromorphone HCl 2 MG ONCE ONE 01/14 0630 DC 01/14 PO 01/14 0631 0657 Hydromorphone HCl 0.5 MG ONCE ONE 01/14 0200 DC 01/14 IV 01/14 0201 0214 Hydromorphone HCl 1 MG ONCE ONE 01/13 1600 DC 01/13 IV 01/13 1601 1559 Hydromorphone HCl 0 .STK-MED ONE 01/13 1556 DC .ROUTE Ibuprofen 600 MG Q6P PRN 01/14 1415 AC PO Insulin Aspart 0 TIDAC 01/14 0800 AC 01/14 SC 1215 Insulin Aspart 0 AT BEDTIME 01/13 2200 AC SC Insulin Detemir 25 UNITS BID 01/13 2200 CAN SC Insulin Detemir 25 UNITS BID 01/13 2200 AC 01/14 SC 0949 Insulin Human Regular 0 TIDAC/HS 01/13 2100 CAN SC Ipratropium [place] 2.5 ML BID 01/14 1030 AC INH Lisinopril 5 MG DAILY 01/13 1855 AC 01/14 PO 0949 Morphine Sulfate 1 MG Q12P PRN 01/13 2015 AC 01/13 IV 2140 Nicotine 14 MG DAILY 01/14 1000 AC 01/14 TOP 0948 Oxycodone/ 1 TAB Q6P PRN 01/13 2015 AC 01/14 Acetaminophen PO 1501 Polyethylene Glycol 17 GM AT BEDTIME PRN 01/13 2200 AC PO Potassium Chloride 10 MEQ DAILY 01/14 1000 AC 01/14 PO 0949 Prednisone 30 MG DAILY 01/14 1404 AC PO Warfarin Sodium 7.5 MG COUMADIN 1700 ONE 01/14 1700 AC PO 01/14 1701 Last 24 Hrs of Lab/[place] Results Last 24 Hrs of Labs/Mics: Laboratory Tests 01/14/17 0924: PT 29.8 H, INR 2.87 H 01/14/17 0630: Anion Gap 15, Estimated GFR > 60, BUN/Creatinine Ratio 35.6 H 01/13/17 1920: Troponin I 0.02 Microbiology 01/14 819 LOWER RESP: Respiratory Culture - COLB 01/14 819 LOWER RESP: Gram Stain - COLB Assessment/Plan Assessment: 60-year-old male with PMH of CAD s/p NH and stent placement in 2003, CHF, COPD on 1.5 L home O2, Afib on amiodarone and Warfarin, PVD, HTN, 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 venous insufficiency, was sent in from Dr. Cosby's office for worsening dyspnea, 15 lb weight gain, cough productive of thick green sputum, and mechanical fall. Problem list: # CHF exacerbation with 15 lb weight gain, increased dyspnea # COPD on 1.5 L O2, with thick green sputum # Back pain due to mechanical fall # CHF exacerbation with 15 lb weight gain, increased dyspnea - sleeps on recliner at baseline * Strict Is and Os * IV lasix 40 mg bid (home dose 40 mg PO) # COPD on 1.5 L O2, with thick green sputum * Follow respiratory culture, gram stain * Pulm consult with Dr. Esparza * TRC, nebs, symbicort * Azithromycin day 1 * Prednisone 30 mg started , watch blood sugar on steroids # TOMASZ * Supposed to be on autopap but not compliant # Back pain due to mechanical fall * Pain control with percocet and NSAID * Avoid dilaudid for pain # IDDM - Home metformin, novolog, and levemir * Follow up hba1c * Continue accucheck, insulin sliding scale and levemir # Atrial fibrillation - INR 5.82 --> 2.87 * Continue amiodarone 200 mg daily * Daily INR and warfarin # Hx of CAD s/p NH & stent placement and HTN * Continue Lisinopril 5 mg daily # DM neuropathy * continue Neurontin 600 TID # HLD * Continue statin # Constipation * Continue colace, miralax Diet: CC3, 2 gm sodium restriction DVT ppx: mech and pharm (hold warfarin if supratherapeutic INR) FULL CODE Problem List: 1. CHF exacerbation Pain Ratin Pain Location: back Pain Goal: Pain 7 or less Pain Plan: percocet nsaid Tomorrow's Labs & Rationales: inr for warfarin dose DVT/Prophylaxis: mechanical, pharmacological
[2017-01-14 08:11] VITALS: BP 142/67
[2017-01-14] MEDS ORDERED: NICODERM CQ1 EAC1 TOP (08:20)
--- NOTE | 2017-01-14 09:04 | Cons- Pulmonary ---
General Information and HPI Consulting Request Date of Consult: 01/14/17 Requested By: Dr. Cosby Reason for Consult: Shortness of breath Source of Information: patient, old records Exam Limitations: no limitations History of Present Illness: The patient is a 61-year-old male well-known to me from previous outpatient visits and hospitalizations. He has a past mental history significant for CAD status post [place] with stent placement in 2003, recurrent congestive heart failure, COPD on 1.5 L home oxygen, atrial fibrillation on amiodarone and warfarin, severe peripheral vascular disease, venous insufficiency, hypertension, type 2 diabetes with neuropathy, and obstructive sleep apnea, noncompliant with nasal CPAP. The patient presented with a four-day history of increased shortness of breath. This was associated with an increased cough productive of thick green sputum. He has had a 15 pound weight gain over the past 4 days with increased lower extremity edema. The patient was using a nebulizer, Symbicort and Spiriva at home without improvement. He also has multiple musculoskeletal complaints after a fall at home. The patient reports feeling improved since admission. He denies any further complaints. Allergies/Medications Allergies: Coded Allergies: NO KNOWN ALLERGIES (08/21/16) Home Med List: Amiodarone HCl 200 MG TABLET 1 TAB PO DAILY AFIB (Reported) Aspirin (Ecotrin*) 81 MG TABLET.DR 1 TAB PO DAILY HEART/BLOOD (Reported) Atorvastatin Calcium 40 MG TABLET 1 TAB PO DAILY CHOLESTEROL (Reported) Budesonide/Formoterol Fumarate (Symbicort 160-4.5 Mcg Inhaler) 10.2 GM HFA.AER.AD 2 PUF INH BID COPD Carvedilol 25 MG TABLET 1 TAB PO BID HEART (Reported) Cholecalciferol (Vitamin D3) (Vitamin D) 2,000 UNIT TABLET 1 TAB PO DAILY SUPPLEMENT (Reported) Cyanocobalamin (Vitamin B-12) (Vitamin B-12) 2,000 MCG TABLET 1 TAB PO DAILY SUPPLEMENT (Reported) Docusate Sodium (Colace) 100 MG CAPSULE 1 CAP PO BID PRN Constipation Fenofibrate 160 MG TABLET 1 TAB PO DAILY CHOLESTEROL (Reported) Fluticasone Propionate (Flovent Hfa) (Unknown Strength) AER.W.ADAP (Unknown Dose) UNKNOWN (Reported) Furosemide (Lasix) 40 MG TABLET 1 TAB PO BID CHF (Reported) Gabapentin 600 MG TABLET 1 TAB PO TID NEUROPATHY (Reported) Insulin Aspart, Recombinant (Novolog Flexpen) 100 UNIT/1 ML INSULN.PEN 0 SC TIDAC/HS DIABETES BLOOD SUGAR BEFORE MEALS UNITS BEDTIME LESS THAN 80 INITIATE HYPOGLYCEMIA 80-150 16 UNITS 151-200 18 UNITS 201-250 20 UNITS 251-300 22 UNITS 4 UNITS 301-350 24 UNITS 6 UNITS 351-400 26 UNITS 8 UNITS 351-400 26 UNITS, CALL 10 UNITS, CALL Insulin Detemir (Levemir Flextouch) 100 UNIT/ML (3 ML) INSULN.PEN 25 UNITS SC BID DM (Reported) Levalbuterol HCl 1.25 MG/3 ML VIAL.NEB 1 INH PO Q4 BREATHING PROBLEMS ( Reported) Lisinopril (Prinivil) 5 MG TABLET 1 TAB PO DAILY HTN (Reported) Metformin HCl 850 MG TABLET 850 MG PO 0800,1700 diabetes Nicotine (Nicoderm Cq) 14 MG/24 HOUR PATCH.TD24 1 PAT TOP DAILY smoking cessation Polyethylene Glycol 3350 (Miralax) 119 GM POWDER 17 GM PO AT BEDTIME PRN CONSTIPATION Potassium Chloride 10 MEQ CAPSULE.ER 1 CAP PO DAILY SUPPLEMENT (Reported) Warfarin Sodium (Coumadin) 10 MG TABLET 1 TAB PO AD BLOOD THINNER (Reported) Current Medications: Current Medications Sig/Ann-Marie Start time Last Medication Dose Route Stop Time Status Admin Acetaminophen 650 MG Q6P PRN 01/13 2015 AC PO Albuterol Sulfate 3 ML ONCE ONE 01/13 1330 DC 01/13 INH 01/13 1331 1354 Amiodarone HCl 200 MG DAILY 01/14 1000 AC PO Aspirin Buffered 81 MG DAILY 01/14 1000 AC PO Atorvastatin Calcium 40 MG 1700 01/14 1700 AC PO Budesonide/ 2 PUF BID 01/13 2200 AC 01/13 Formoterol Fumarate INH 2050 Carvedilol 25 MG BID 01/13 2200 AC 01/13 PO 2051 Cholecalciferol 1,000 IU DAILY 01/14 1000 AC PO Cyanocobalamin 1,000 MCG DAILY 01/14 1000 AC PO Fenofibrate 145 MG DAILY 01/14 1000 AC PO Furosemide 40 MG DAILY 01/14 1000 AC IV Furosemide 0 .STK-MED ONE 01/13 1229 DC IV Furosemide 40 MG ONCE ONE 01/13 1215 DC 01/13 IV 01/13 1216 1238 Gabapentin 600 MG Q8 01/13 2200 AC 01/14 PO 0610 Hydromorphone HCl 2 MG ONCE ONE 01/14 0630 DC 01/14 PO 01/14 0631 0657 Hydromorphone HCl 0.5 MG ONCE ONE 01/14 0200 DC 01/14 IV 01/14 0201 0214 Hydromorphone HCl 1 MG ONCE ONE 01/13 1600 DC 01/13 IV 01/13 1601 1559 Hydromorphone HCl 0 .STK-MED ONE 01/13 1556 DC .ROUTE Hydromorphone HCl 0 .STK-MED ONE 01/13 1229 DC .ROUTE Hydromorphone HCl 1 MG ONCE ONE 01/13 1215 DC 01/13 IV 01/13 1216 1238 Insulin Aspart 0 TIDAC 01/14 0800 AC 01/14 SC 0832 Insulin Aspart 0 AT BEDTIME 01/13 2200 AC SC Insulin Detemir 25 UNITS BID 01/13 2200 CAN SC Insulin Detemir 25 UNITS BID 01/13 2200 AC 01/13 SC 2051 Insulin Human Regular 0 TIDAC/HS 01/13 2100 CAN SC Ipratropium [place] 2.5 ML ONCE ONE 01/13 1330 DC 01/13 INH 01/13 1331 1354 Lisinopril 5 MG DAILY 01/13 1855 AC 01/13 PO 2051 Methylprednisolone 0 .STK-MED ONE 01/13 1229 DC .ROUTE Methylprednisolone 125 MG ONCE ONE 01/13 1215 DC 01/13 IV 01/13 1216 1238 Morphine Sulfate 1 MG Q12P PRN 01/13 2015 AC 01/13 IV 2140 Nicotine 14 MG DAILY 01/14 1000 AC TOP Oxycodone/ 1 TAB Q6P PRN 01/13 2015 AC 01/13 Acetaminophen PO 2359 Polyethylene Glycol 17 GM AT BEDTIME PRN 01/13 2200 AC PO Potassium Chloride 10 MEQ DAILY 01/14 1000 AC PO Review of Systems Review of Systems All Other Systems: Reviewed and Negative Past History Travel History Traveled to [place] past 21 day No Medical History Neurological: NONE EENT: NONE Cardiovascular: AFIB, CAD, chronic venous insuff, hypertension, hyperlipidemia, myocardial infarction, STENT 2003 Respiratory: bronchitis, COPD, emphysema, obstructive sleep apnea, 02 1.5 L Gastrointestinal: NONE Hepatic: NONE Renal: NONE Musculoskeletal: degen joint disease Psychiatric: NONE Endocrine: diabetes Blood Disorders: DVT LLE Cancer(s): NONE DENTAL SERVICES DIRECTOR/Reproductive: NONE Surgical History Surgical History: cholecystectomy, knee replacement (left knee), status post aborted maze procedure b/l LE venous sclerotherapy Family History Relations & Conditions If Any: FATHER FH: heart attack FH: HTN (hypertension) MOTHER FH: heart attack FH: HTN (hypertension) FHx: stroke SISTER FH: breast cancer FH: CHF (congestive heart failure) Psychosocial History Who Do You Live With? spouse Services at Home: Oxygen Primary Language: Slovenian Smoking Status: Former Smoker ETOH Use: denies use Illicit Drug Use: denies illicit drug use Living Will? no Power of Scientific Advisor/HCP? no Functional Ability ADLs Independent: dressing, eating, toileting, bathing. Ambulation: cane IADLs Independent: shopping, housework, finances, food prep, telephone, transportation , medication admin. Exam & Diagnostic Data Last 24 Hrs of Vital Signs/I&O Vital Signs Date Time Temp Pulse Resp B/P Pulse O2 O2 Flow FiO2 Ox Delivery Rate 01/14 0811 97.9 66 17 142/67 96 Nasal 1.5L Cannula 01/14 0012 97.5 82 18 120/60 92 Room Air 01/14 0000 Nasal 1.5L Cannula 01/13 2051 95 160/80 01/13 2051 95 160/80 01/13 1759 95 Nasal 1.5L Cannula 01/13 1716 98.0 95 18 160/80 93 Nasal 1.5L Cannula 01/13 1607 97.8 86 18 170/56 92 Nasal 1.5L Cannula 01/13 1354 96 Nasal 1.5L Cannula 01/13 1335 96.1 77 18 158/95 95 Nasal 1.5L Cannula 01/13 1208 95 Nasal 1.5L Cannula 01/13 1143 96.7 79 26 173/105 95 Room Air Intake & Output 01/14 1600 01/14 0800 01/14 0000 Intake Total 240 320 Output Total 600 1560 Balance -360 -1240 Intake, IV 20 Intake, Oral 240 300 Output, Urine 600 1560 Patient 324 lb 315 lb Weight Physical Exam General Appearance: no apparent distress, alert, awake, comfortable Head: atraumatic, normal appearance Eyes: Bilateral: PERRL. Neck: supple Respiratory: no respiratory distress, decreased breath sounds, wheezing Cardiovascular: S1 and S2 are heard, heart sounds are distant Gastrointestinal: normal bowel sounds, soft, non-tender Extremities: 3+ chronic lower extremity edema with chronic venous stasis Skin: intact, warm/dry Last 48 Hrs of Labs/[place]: Laboratory Tests 01/14/17 0630: Anion Gap 15, Estimated GFR > 60, BUN/Creatinine Ratio 35.6 H 01/13/17 1920: Troponin I 0.02 01/13/17 1215: Anion Gap 10, Estimated GFR > 60, BUN/Creatinine Ratio 31.3 H, Glucose 89, Calcium 9.3, Total Bilirubin 0.9, AST 23, ALT 33, Alkaline Phosphatase 75, Troponin I < 0.01, Pok-T-Dgnptzlrebs Pept 1350 H, Total Protein 6.4, Albumin 3.7, Globulin 2.7, Albumin/Globulin Ratio 1.4, PT 60.1 *H, INR 5.82 *H, APTT 52 H, CBC w Diff NO MAN DIFF REQ, RBC 4.80, MCV 84.9, MCH 28.4, RDW 15.4 H, MPV 8.9, Gran % 71.6, Lymphocytes % 14.8 L, Monocytes % 6.6, Eosinophils % 6.2 H, Basophils % 0.8, Absolute Granulocytes 4.5, Absolute Lymphocytes 0.9 L, Absolute Monocytes 0.4, Absolute Eosinophils 0.4, Absolute Basophils 0, PUBS MCHC 33.4 Diagnostic Data CXR Results Mild pulmonary edema is suggested slightly increased from the most recent exam. No focal infiltrate to suggest pneumonia. Assessment/Plan Impression/Plan: 1. Acute exacerbation of COPD. 2. Possible tracheobronchitis. 3. History of recurrent congestive heart failure. 4. Diabetes. 5. Chronic venous stasis. Recommendations: * Start azithromycin 250 mg daily for 5 days. * Start prednisone 30 mg daily, will slowly taper off. * TRC for neb treatments. * Oxygen to maintain saturations greater than 92%. * Continue Symbicort 2 inhalations every 12 hours. * Monitor blood sugars while on steroids. * Diuresis per cardiology. * Check a sputum culture. * Check a bedside spirometry. * Continue all supportive care. Consult Acknowledgment - Thank you for your consult request.
[2017-01-14 10:50] LABS: PT 29.8 SEC (9.4-12.5)
--- NOTE | 2017-01-14 12:36 | PN- Cardiology ---
Subjective Subjective: The patient seems to be doing slightly better today. He has diuresed about 1200 mL. According to the patient, he did not receive any extra Lasix last night. He is also unhappy that he has not had optimum pain control and that he received no nebulizer treatments over the last 12 hours. Objective Vital Signs and I&Os Vital Signs Date Time Temp Pulse Resp B/P Pulse O2 O2 Flow FiO2 Ox Delivery Rate 01/14 1153 96 Nasal 1.5L Cannula 01/14 1006 Nasal 1.5L Cannula 01/14 0949 66 142/67 01/14 0949 66 142/67 01/14 0948 66 142/67 01/14 0811 97.9 66 17 142/67 96 Nasal 1.5L Cannula 01/14 0012 97.5 82 18 120/60 92 Room Air 01/14 0000 Nasal 1.5L Cannula 01/13 2051 95 160/80 01/13 2051 95 160/80 01/13 1759 95 Nasal 1.5L Cannula 01/13 1716 98.0 95 18 160/80 93 Nasal 1.5L Cannula 01/13 1607 97.8 86 18 170/56 92 Nasal 1.5L Cannula 01/13 1354 96 Nasal 1.5L Cannula 01/13 1335 96.1 77 18 158/95 95 Nasal 1.5L Cannula Intake & Output 01/14 1600 01/14 0800 01/14 0000 01/13 1600 01/13 0800 01/13 0000 Intake Total 240 320 Output Total 600 1560 Balance -360 -1240 Intake, IV 20 Intake, Oral 240 300 Output, Urine 600 1560 Patient 324 lb 315 lb 305 lb Weight Physical Exam: General Appearance Alert, Oriented X3, Cooperative, mildly dyspneic Skin dry blister on right klein, healing laceration on right knee, venous insufficiency changes HEENT normal Neck Supple, No JVD, carotids normal bilaterally Cardiovascular Regular Rate, Normal S1, Normal S2, 1 to 2/6 systolic ejection murmur Lungs decreased breath sounds bilaterally with scattered rhonchi and scattered expiratory wheezing Abdomen Normal Bowel Sounds, Soft, No Tenderness Neurological nonfocal Extremities 3+ pitting edema bilaterally up to the knees with stasis changes present Current Medications: Current Medications Sig/Ann-Marie Start time Last Medication Dose Route Stop Time Status Admin Acetaminophen 650 MG Q6P PRN 01/13 2015 AC PO Albuterol Sulfate 3 ML BID 01/14 1030 AC 01/14 INH 1139 Albuterol Sulfate 3 ML ONCE ONE 01/13 1330 DC 01/13 INH 01/13 1331 1354 Amiodarone HCl 200 MG DAILY 01/14 1000 AC 01/14 PO 0948 Aspirin Buffered 81 MG DAILY 01/14 1000 AC 01/14 PO 0949 Atorvastatin Calcium 40 MG 1700 01/14 1700 AC PO Budesonide/ 2 PUF BID 01/13 2200 AC 01/14 Formoterol Fumarate INH 0948 Carvedilol 25 MG BID 01/13 2200 AC 01/14 PO 0949 Cholecalciferol 1,000 IU DAILY 01/14 1000 AC 01/14 PO 0949 Cyanocobalamin 1,000 MCG DAILY 01/14 1000 AC 01/14 PO 0949 Fenofibrate 145 MG DAILY 01/14 1000 AC 01/14 PO 0949 Furosemide 40 MG DAILY 01/14 1000 AC 01/14 IV 0948 Gabapentin 600 MG Q8 01/13 2200 AC 01/14 PO 0610 Hydromorphone HCl 2 MG ONCE ONE 01/14 0630 DC 01/14 PO 01/14 0631 0657 Hydromorphone HCl 0.5 MG ONCE ONE 01/14 0200 DC 01/14 IV 01/14 0201 0214 Hydromorphone HCl 1 MG ONCE ONE 01/13 1600 DC 01/13 IV 01/13 1601 1559 Hydromorphone HCl 0 .STK-MED ONE 01/13 1556 DC .ROUTE Insulin Aspart 0 TIDAC 01/14 0800 AC 01/14 SC 1215 Insulin Aspart 0 AT BEDTIME 01/13 2200 AC SC Insulin Detemir 25 UNITS BID 01/13 2200 CAN SC Insulin Detemir 25 UNITS BID 01/13 2200 AC 01/14 SC 0949 Insulin Human Regular 0 TIDAC/HS 01/13 2100 CAN SC Ipratropium [place] 2.5 ML BID 01/14 1030 AC INH Ipratropium [place] 2.5 ML ONCE ONE 01/13 1330 DC 01/13 INH 01/13 1331 1354 Lisinopril 5 MG DAILY 01/13 1855 AC 01/14 PO 0949 Morphine Sulfate 1 MG Q12P PRN 01/13 2015 AC 01/13 IV 2140 Nicotine 14 MG DAILY 01/14 1000 AC 01/14 TOP 0948 Oxycodone/ 1 TAB Q6P PRN 01/13 2015 AC 01/13 Acetaminophen PO 2359 Polyethylene Glycol 17 GM AT BEDTIME PRN 01/13 2200 AC PO Potassium Chloride 10 MEQ DAILY 01/14 1000 AC 01/14 PO 0949 Results Last 48 Hrs of Labs/Mics: Laboratory Tests 01/14/17 0924: PT 29.8 H, INR 2.87 H 01/14/17 0630: Anion Gap 15, Estimated GFR > 60, BUN/Creatinine Ratio 35.6 H 01/13/17 1920: Troponin I 0.02 01/13/17 1215: Anion Gap 10, Estimated GFR > 60, BUN/Creatinine Ratio 31.3 H, Glucose 89, Calcium 9.3, Total Bilirubin 0.9, AST 23, ALT 33, Alkaline Phosphatase 75, Troponin I < 0.01, Akt-S-Xgjpidqvtye Pept 1350 H, Total Protein 6.4, Albumin 3.7, Globulin 2.7, Albumin/Globulin Ratio 1.4, PT 60.1 *H, INR 5.82 *H, APTT 52 H, CBC w Diff NO MAN DIFF REQ, RBC 4.80, MCV 84.9, MCH 28.4, RDW 15.4 H, MPV 8.9, Gran % 71.6, Lymphocytes % 14.8 L, Monocytes % 6.6, Eosinophils % 6.2 H, Basophils % 0.8, Absolute Granulocytes 4.5, Absolute Lymphocytes 0.9 L, Absolute Monocytes 0.4, Absolute Eosinophils 0.4, Absolute Basophils 0, PUBS MCHC 33.4 Assessment/Plan Assessment/Plan Assessment: 1. Worsening shortness of breath likely related to acute on chronic HFpEF 2. Probable exacerbation of underlying COPD; rule out bronchitis 3. Sleep apnea 4. Worsened back pain related to recent mechanical fall 5. Insulin-dependent diabetes 6. Persistent atrial fibrillation 7. History of coronary artery disease, status post stenting. 8. Hyperlipidemia Recommendations: -Continue IV Lasix 40 mg twice a day with close monitoring of intakes, outputs, and daily weights. -Await formal pulmonary input from Dr. Esparza. -Continue nebulizer treatments for now. -Follow-up laboratories in the morning -Continue oral pain control medications as discussed with house staff. Continue telemetry? Yes
[2017-01-14 17:12] VITALS: BP 165/85
[2017-01-15 00:08] VITALS: BP 118/80
--- NOTE | 2017-01-15 06:42 | PN- Housestaff ---
Subjective Follow-up For: chf exarcerbation Subjective: his breathing has improved . complains of back pain 8.5/10. roxicodone 10 mg tid ordered for pain. coughing thick light green sputum, improved from before. Review of Systems Constitutional: Denies: chills, fever. EENTM: Denies: visual changes. Cardiovascular: Denies: chest pain, palpitations. Respiratory: Reports: cough, short of breath, sputum production. Gastrointestinal: Reports: constipation. Denies: abdominal pain, bloating, diarrhea. Objective Last 24 Hrs of Vital Signs/I&O Vital Signs Date Time Temp Pulse Resp B/P Pulse O2 O2 Flow FiO2 Ox Delivery Rate 01/15 1600 97 Nasal 1.5L Cannula 01/15 1059 144/84 01/15 1059 144/84 01/15 1059 144/84 01/15 0809 97.8 72 18 144/84 95 Nasal 1.5L Cannula 01/15 0801 95 Room Air Room Air 01/15 0800 Nasal 1.5L Cannula 01/15 0008 98.0 74 18 118/80 94 Nasal Cannula 01/15 0000 94 Nasal 1.5L Cannula 01/14 2126 82 165/85 01/14 1712 98.6 71 18 165/85 95 Nasal 1.5L Cannula Intake & Output 01/15 1600 01/15 0800 01/15 0000 Intake Total 1000 750 570 Output Total 2450 800 1350 Balance -1450 -50 -780 Intake, IV 20 Intake, Oral 1000 750 550 Output, Urine 2450 800 1350 Patient 146.057 kg Weight Physical Exam General Appearance: Alert, Oriented X3, Cooperative, No Acute Distress Skin: chronic venous stasis change, 3+ pitting edema bilaterally, although improved HEENT: Atraumatic Cardiovascular: Normal S1, Normal S2, No Murmurs, irregular rate Lungs: mild exp wheezes and crackles Abdomen: Normal Bowel Sounds, Soft, No Tenderness Current Medications: Current Medications Sig/Ann-Marie Start time Last Medication Dose Route Stop Time Status Admin Acetaminophen 650 MG Q6P PRN 01/13 2015 AC PO Albuterol Sulfate 3 ML BID 01/14 1030 AC 01/15 INH 1202 Amiodarone HCl 200 MG DAILY 01/14 1000 AC 01/15 PO 1059 Aspirin Buffered 81 MG DAILY 01/14 1000 AC 01/15 PO 1059 Atorvastatin Calcium 40 MG 1700 01/14 1700 AC 01/14 PO 1726 Azithromycin 250 MG DAILY 01/14 1415 AC 01/15 PO 01/18 1200 1059 Budesonide/ 2 PUF BID 01/13 2200 AC 01/15 Formoterol Fumarate INH 1055 Carvedilol 25 MG BID 01/13 2200 AC 01/15 PO 1059 Cholecalciferol 1,000 IU DAILY 01/14 1000 AC 01/15 PO 1059 Cyanocobalamin 1,000 MCG DAILY 01/14 1000 AC 01/15 PO 1059 Fenofibrate 145 MG DAILY 01/14 1000 AC 01/15 PO 1059 Furosemide 40 MG BID 01/14 2200 AC 01/15 IV 1056 Furosemide 40 MG DAILY 01/14 1000 DC 01/14 IV 0948 Gabapentin 600 MG Q8 01/13 2200 AC 01/15 PO 1348 Guaifenesin 600 MG Q12 01/15 1105 01/15 PO 1348 Ibuprofen 600 MG Q6P PRN 01/14 1415 AC PO Insulin Aspart 0 TIDAC 01/14 0800 01/15 SC 1238 Insulin Aspart 0 AT BEDTIME 01/13 220 AC SC Insulin Detemir 25 UNITS BID 01/13 2200 01/15 SC 1107 Ipratropium [place] 2.5 ML BID 01/14 1030 AC 01/15 INH 1600 Lisinopril 5 MG DAILY 01/13 1855 01/15 PO 1059 Morphine Sulfate 1 MG Q12P PRN 01/13 2015 DC 01/15 IV 0406 Nicotine 14 MG DAILY 01/14 1000 01/15 TOP 1055 Oxycodone HCl 10 MG Q8P PRN 01/15 1515 AC PO Oxycodone HCl 10 MG ONCE ONE 01/15 1430 DC 01/15 PO 01/15 1431 1446 Oxycodone/ 1 TAB Q6P PRN 01/13 2015 DC 01/15 Acetaminophen PO 1055 Polyethylene Glycol 17 GM AT BEDTIME PRN 01/13 2200 AC 01/15 PO 1442 Potassium Chloride 10 MEQ DAILY 01/14 1000 AC 01/15 PO 1059 Prednisone 30 MG DAILY 01/14 1404 AC 01/15 PO 1059 Warfarin Sodium 10 MG COUMADIN 1700 ONE 01/15 1700 AC PO 01/15 1701 Warfarin Sodium 7.5 MG COUMADIN 1700 ONE 01/14 1700 DC 01/14 PO 01/14 1701 1727 Last 24 Hrs of Lab/[place] Results Last 24 Hrs of Labs/Mics: Laboratory Tests 01/15/17 0719: PT 28.5 H, INR 2.74 H Microbiology 01/14 2000 LOWER RESP: Respiratory Culture - RES 01/14 2000 LOWER RESP: Gram Stain - RES Assessment/Plan Assessment: 60-year-old male with PMH of CAD s/p [place] and stent placement in 2003, CHF, COPD on 1.5 L home O2, Afib on amiodarone and Warfarin, PVD, HTN, 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 venous insufficiency, was sent in from Dr. Cosby's office for worsening dyspnea, 15 lb weight gain, cough productive of thick green sputum, and mechanical fall. Problem list: # CHF exacerbation with 15 lb weight gain, increased dyspnea # COPD on 1.5 L O2, with thick green sputum # Back pain due to mechanical fall # CHF exacerbation with 15 lb weight gain, increased dyspnea - sleeps on recliner at baseline * Strict Is and Os * IV lasix 40 mg bid (home dose 40 mg PO) # COPD on 1.5 L O2, with thick green sputum * Follow respiratory culture, gram stain * Pulm consult with Dr. Esparza * TRC, nebs, symbicort * Azithromycin day 12/04 * Prednisone 30 mg started , watch blood sugar on steroids # TOMASZ * Supposed to be on autopap but not compliant # Back pain due to mechanical fall * Pain control with roxicodone 10 mg tid and NSAID * Avoid dilaudid for pain # IDDM - Home metformin, novolog, and levemir * Follow up hba1c * Continue accucheck, insulin sliding scale and levemir # Atrial fibrillation - INR 5.82 --> 2.87 * Continue amiodarone 200 mg daily * Daily INR and warfarin # Hx of CAD s/p IA & stent placement and HTN * Continue Lisinopril 5 mg daily # DM neuropathy * continue Neurontin 600 TID # HLD * Continue statin # Constipation * Continue colace, miralax Diet: CC3, 2 gm sodium restriction DVT ppx: mech and pharm (hold warfarin if supratherapeutic INR) FULL CODE Problem List: 1. CHF exacerbation Pain Ratin Pain Location: back pain Pain Goal: Pain 7 or less Pain Plan: roxicodone Tomorrow's Labs & Rationales: inr for warfarin DVT/Prophylaxis: mechanical, pharmacological
[2017-01-15 08:09] VITALS: BP 144/84
[2017-01-15 08:16] LABS: PT 28.5 SEC (9.4-12.5)
--- NOTE | 2017-01-15 09:33 | PN- Pulmonary ---
Subjective HPI/Critical Care Issues: The patient is awake and alert. He reports feeling slightly improved. He continues to have a productive cough. He complains of thick mucus with significant chest congestion and difficulty with expectoration. He is afebrile. His oxygen saturations remained stable on 1.5 L nasal cannula. Objective Current Medications: Current Medications Sig/Ann-Marie Start time Last Medication Dose Route Stop Time Status Admin Acetaminophen 650 MG Q6P PRN 01/13 2015 AC PO Albuterol Sulfate 3 ML BID 01/14 1030 AC 01/14 INH 2028 Amiodarone HCl 200 MG DAILY 01/14 1000 AC 01/14 PO 0948 Aspirin Buffered 81 MG DAILY 01/14 1000 AC 01/14 PO 0949 Atorvastatin Calcium 40 MG 1700 01/14 1700 AC 01/14 PO 1726 Azithromycin 250 MG DAILY 01/14 1415 AC 01/14 PO 01/18 1200 1726 Budesonide/ 2 PUF BID 01/13 2200 AC 01/14 Formoterol Fumarate INH 2126 Carvedilol 25 MG BID 01/13 2200 AC 01/14 PO 2126 Cholecalciferol 1,000 IU DAILY 01/14 1000 AC 01/14 PO 0949 Cyanocobalamin 1,000 MCG DAILY 01/14 1000 AC 01/14 PO 0949 Fenofibrate 145 MG DAILY 01/14 1000 AC 01/14 PO 0949 Furosemide 40 MG BID 01/14 2200 AC 01/14 IV 2127 Furosemide 40 MG DAILY 01/14 1000 DC 01/14 IV 0948 Gabapentin 600 MG Q8 01/13 2200 AC 01/15 PO 0648 Ibuprofen 600 MG Q6P PRN 01/14 1415 AC PO Insulin Aspart 0 TIDAC 01/14 0800 AC 01/15 SC 0746 Insulin Aspart 0 AT BEDTIME 01/13 2200 AC SC Insulin Detemir 25 UNITS BID 01/13 2200 AC 01/14 SC 2127 Ipratropium [place] 2.5 ML BID 01/14 1030 AC 01/15 INH 0758 Lisinopril 5 MG DAILY 01/13 1855 AC 01/14 PO 0949 Morphine Sulfate 1 MG Q12P PRN 01/13 2015 AC 01/15 IV 0406 Nicotine 14 MG DAILY 01/14 1000 AC 01/14 TOP 0948 Oxycodone/ 1 TAB Q6P PRN 01/13 2015 AC 01/15 Acetaminophen PO 0448 Polyethylene Glycol 17 GM AT BEDTIME PRN 01/13 2200 AC PO Potassium Chloride 10 MEQ DAILY 01/14 1000 AC 01/14 PO 0949 Prednisone 30 MG DAILY 01/14 1404 AC 01/14 PO 1726 Warfarin Sodium 10 MG COUMADIN 1700 ONE 01/15 1700 AC PO 01/15 1701 Warfarin Sodium 7.5 MG COUMADIN 1700 ONE 01/14 1700 DC 01/14 PO 01/14 1701 1727 Vital Signs & I&O Last 24 Hrs of Vitals and I&O: Vital Signs Date Time Temp Pulse Resp B/P Pulse O2 O2 Flow FiO2 Ox Delivery Rate 01/15 0809 97.8 72 18 144/84 95 Nasal 1.5L Cannula 01/15 0801 95 Room Air Room Air 01/15 0008 98.0 74 18 118/80 94 Nasal Cannula 01/15 0000 94 Nasal 1.5L Cannula 01/14 2126 82 165/85 01/14 1712 98.6 71 18 165/85 95 Nasal 1.5L Cannula 01/14 1602 97 Nasal 1.5L Cannula 01/14 1600 94 Nasal 1.5L Cannula 01/14 1153 96 Nasal 1.5L Cannula 01/14 1006 Nasal 1.5L Cannula 01/14 0949 66 142/67 01/14 0949 66 142/67 01/14 0948 66 142/67 Intake & Output 01/15 1600 01/15 0800 01/15 0000 Intake Total 750 570 Output Total 800 1350 Balance -50 -780 Intake, IV 20 Intake, Oral 750 550 Output, Urine 800 1350 Patient 322 lb Weight Physical Exam General Appearance: no apparent distress, alert, awake, comfortable Head: atraumatic, normal appearance Eyes: Bilateral: PERRL. Neck: supple Respiratory: no respiratory distress, decreased breath sounds, wheezing Cardiovascular: S1 and S2 are heard, heart sounds are distant Gastrointestinal: normal bowel sounds, soft, non-tender Extremities: 3+ chronic lower extremity edema with chronic venous stasis Skin: intact, warm/dry Results Last 24 Hrs of Lab Results: Laboratory Tests 01/15/17 0719: PT 28.5 H, INR 2.74 H Impression/Plan Impression/Plan Impression/Plan: 1. Acute exacerbation of COPD. 2. Tracheobronchitis. 3. History of recurrent congestive heart failure. 4. Diabetes. 5. Chronic venous stasis. Recommendations: * Add Mucinex 600 mg BID. * Complete 5 days of azithromycin. * Prednisone 30 mg daily, will taper off as tolerated. * TRC for neb treatments. * Oxygen to maintain saturations greater than 92%. * Continue Symbicort 2 inhalations every 12 hours. * Monitor blood sugars while on steroids. * Diuresis per cardiology. * Follow-up sputum culture results. * Check a bedside spirometry (please request from respiratory therapy). * Continue all supportive care.
[2017-01-15] MEDS ORDERED: OXYCODONE HCL10 M2 PO (13:14)
[2017-01-15 16:00] VITALS: BP 122/62
--- NOTE | 2017-01-15 19:46 | PN- Cardiology ---
Subjective Subjective: Overall slightly better. Diuresing well. Respiratory status improving. Still with back pain. Objective Vital Signs and I&Os Vital Signs Date Time Temp Pulse Resp B/P Pulse O2 O2 Flow FiO2 Ox Delivery Rate 01/15 1600 97.8 77 20 122/62 97 Nasal 1.5L Cannula 01/15 1600 97 Nasal 1.5L Cannula 01/15 1059 144/84 01/15 1059 144/84 01/15 1059 144/84 01/15 0809 97.8 72 18 144/84 95 Nasal 1.5L Cannula 01/15 0801 95 Room Air Room Air 01/15 0800 Nasal 1.5L Cannula 01/15 0008 98.0 74 18 118/80 94 Nasal Cannula 01/15 0000 94 Nasal 1.5L Cannula 01/14 2126 82 165/85 Intake & Output 01/15 1600 01/15 0800 01/15 0000 01/14 1600 01/14 0800 01/14 0000 Intake Total 1000 750 570 720 240 320 Output Total 2450 800 1350 7402 676 6278 Balance -1450 -50 -780 -1130 -360 -1240 Intake, IV 20 20 Intake, Oral 1000 750 550 720 240 300 Output, Urine 2450 800 [phone] [id number] Patient 322 lb 324 lb 315 lb Weight Physical Exam: General Appearance Alert, Oriented X3, Cooperative, mildly dyspneic Skin dry blister on right klein, healing laceration on right knee, venous insufficiency changes HEENT normal Neck Supple, No JVD, carotids normal bilaterally Cardiovascular Regular Rate, Normal S1, Normal S2, 1 to 2/6 systolic ejection murmur Lungs decreased breath sounds bilaterally with scattered rhonchi and scattered expiratory wheezing Abdomen Normal Bowel Sounds, Soft, No Tenderness Neurological nonfocal Extremities 3+ pitting edema bilaterally up to the knees with stasis changes present Current Medications: Current Medications Sig/Ann-Marie Start time Last Medication Dose Route Stop Time Status Admin Acetaminophen 650 MG Q6P PRN 01/13 2015 AC PO Albuterol Sulfate 3 ML BID 01/14 1030 AC 01/15 INH 1202 Amiodarone HCl 200 MG DAILY 01/14 1000 AC 01/15 PO 1059 Aspirin Buffered 81 MG DAILY 01/14 1000 AC 01/15 PO 1059 Atorvastatin Calcium 40 MG 1700 01/14 1700 AC 01/15 PO 1657 Azithromycin 250 MG DAILY 01/14 1415 AC 01/15 PO 01/18 1200 1059 Budesonide/ 2 PUF BID 01/13 2200 AC 01/15 Formoterol Fumarate INH 1055 Carvedilol 25 MG BID 01/13 2200 AC 01/15 PO 1059 Cholecalciferol 1,000 IU DAILY 01/14 1000 AC 01/15 PO 1059 Cyanocobalamin 1,000 MCG DAILY 01/14 1000 AC 01/15 PO 1059 Fenofibrate 145 MG DAILY 01/14 1000 AC 01/15 PO 1059 Furosemide 40 MG BID 01/14 2200 AC 01/15 IV 1056 Gabapentin 600 MG Q8 01/13 2200 AC 01/15 PO 1348 Guaifenesin 600 MG Q12 01/15 1105 AC 01/15 PO 1348 Ibuprofen 600 MG Q6P PRN 01/14 1415 AC PO Insulin Aspart 0 TIDAC 01/14 0800 AC 01/15 SC 1659 Insulin Aspart 0 AT BEDTIME 01/13 2200 AC SC Insulin Detemir 25 UNITS BID 01/13 2200 AC 01/15 SC 1107 Ipratropium [place] 2.5 ML BID 01/14 1030 AC 01/15 INH 1600 Lisinopril 5 MG DAILY 01/13 1855 AC 01/15 PO 1059 Morphine Sulfate 1 MG Q12P PRN 01/13 2015 DC 01/15 IV 0406 Nicotine 14 MG DAILY 01/14 1000 AC 01/15 TOP 1055 Oxycodone HCl 10 MG Q8P PRN 01/15 1515 AC PO Oxycodone HCl 10 MG ONCE ONE 01/15 1430 DC 01/15 PO 01/15 1431 1446 Oxycodone/ 1 TAB Q6P PRN 01/13 2015 DC 01/15 Acetaminophen PO 1055 Polyethylene Glycol 17 GM AT BEDTIME PRN 01/13 2200 AC 01/15 PO 1442 Potassium Chloride 10 MEQ DAILY 01/14 1000 AC 01/15 PO 1059 Prednisone 30 MG DAILY 01/14 1404 AC 01/15 PO 1059 Warfarin Sodium 10 MG COUMADIN 1700 ONE 01/15 1700 DC 01/15 PO 01/15 1701 1657 Results Last 48 Hrs of Labs/Mics: Laboratory Tests 01/15/17 0719: PT 28.5 H, INR 2.74 H 01/14/17 0924: PT 29.8 H, INR 2.87 H 01/14/17 0630: Anion Gap 15, Estimated GFR > 60, BUN/Creatinine Ratio 35.6 H Assessment/Plan Assessment/Plan Assessment: 1. Worsening shortness of breath likely related to acute on chronic HFpEF 2. Probable exacerbation of underlying COPD; rule out bronchitis 3. Sleep apnea 4. Worsened back pain related to recent mechanical fall 5. Insulin-dependent diabetes 6. Persistent atrial fibrillation 7. History of coronary artery disease, status post stenting. 8. Hyperlipidemia Recommendations: -Continue IV Lasix 40 mg twice a day with close monitoring of intakes, outputs, and daily weights. -Continue as recommended by Dr. Esparza -Continue nebulizer treatments for now. -Follow-up laboratories in the morning -Continue oral pain control medications as discussed with house staff. OK to increase dose to 10/325 TID. - Reassess in 24 hours. The patient will likely need several more days of IV lasix diuresis. - Anticipated probable discharge by Thursday barring any unforeseen issues. Continue telemetry? Yes
[2017-01-15 23:38] VITALS: BP 138/84
--- NOTE | 2017-01-16 06:53 | PN- Housestaff ---
Subjective Follow-up For: CHF exacerbation Tele-Events Since Last Visit: a fib Subjective: Pt seen and examined today, reports back pain now managable at 6.5/10 with bee 10mg tid. He reports diuresing well on the lasix. He still has cough productive of thick light green sputum. INR 2.74 today, 10 mg warfarin ordered. glucose has been reasonably controlled despite being on steroids. Review of Systems Constitutional: Denies: chills, fever. EENTM: Denies: visual changes. Cardiovascular: Denies: chest pain, palpitations. Respiratory: Reports: cough, sputum production, wheezing. Denies: short of breath. Gastrointestinal: Denies: abdominal pain, bloating, constipation. Objective Last 24 Hrs of Vital Signs/I&O Vital Signs Date Time Temp Pulse Resp B/P Pulse O2 O2 Flow FiO2 Ox Delivery Rate 01/16 0000 94 Nasal 1.5L Cannula 01/15 2338 97.9 84 20 138/84 96 Nasal Cannula 01/15 2127 102 142/80 01/15 1600 96 Nasal 1.5L Cannula 01/15 1600 97.8 77 20 122/62 97 Nasal 1.5L Cannula 01/15 1600 97 Nasal 1.5L Cannula 01/15 1059 144/84 01/15 1059 144/84 01/15 1059 144/84 Intake & Output 01/16 1600 01/16 0800 01/16 0000 Intake Total 200 450 Output Total 850 2450 Balance -650 -2000 Intake, Oral 200 450 Number 0 Bowel Movements Output, Urine 850 2450 Patient 146.057 kg Weight Physical Exam General Appearance: Alert, Oriented X3, Cooperative, No Acute Distress Skin: chronic venous insuff changes HEENT: Atraumatic, PERRLA Neck: Supple Cardiovascular: Normal S1, Normal S2, No Murmurs, Gallops, Rubs, irregular rate Lungs: mild exp wheeze Abdomen: Normal Bowel Sounds, Soft, No Tenderness Neurological: Normal Speech Extremities: 3+ pitting edema , however improved Current Medications: Current Medications Sig/Ann-Marie Start time Last Medication Dose Route Stop Time Status Admin Acetaminophen 650 MG Q6P PRN 01/13 2015 AC PO Albuterol Sulfate 3 ML BID 01/14 1030 AC 01/15 INH 2015 Amiodarone HCl 200 MG DAILY 01/14 1000 AC 01/15 PO 1059 Aspirin Buffered 81 MG DAILY 01/14 1000 AC 01/15 PO 1059 Atorvastatin Calcium 40 MG 1700 01/14 1700 AC 01/15 PO 1657 Azithromycin 250 MG DAILY 01/14 1415 AC 01/15 PO 01/18 1200 1059 Budesonide/ 2 PUF BID 01/13 2200 AC 01/15 Formoterol Fumarate INH 2123 Carvedilol 25 MG BID 01/13 2200 AC 01/15 PO 2127 Cholecalciferol 1,000 IU DAILY 01/14 1000 AC 01/15 PO 1059 Cyanocobalamin 1,000 MCG DAILY 01/14 1000 AC 01/15 PO 1059 Fenofibrate 145 MG DAILY 01/14 1000 AC 01/15 PO 1059 Furosemide 40 MG BID 01/14 2200 AC 01/15 IV 1949 Gabapentin 600 MG Q8 01/13 2200 AC 01/16 PO 0553 Guaifenesin 600 MG Q12 01/15 1105 AC 01/15 PO 2123 Ibuprofen 600 MG Q6P PRN 01/14 1415 AC PO Insulin Aspart 0 TIDAC 01/14 0800 AC 01/16 SC 0756 Insulin Aspart 0 AT BEDTIME 01/13 2200 AC SC Insulin Detemir 25 UNITS BID 01/13 2200 AC 01/15 SC 2123 Ipratropium [place] 2.5 ML BID 01/14 1030 AC 01/15 INH 1600 Lisinopril 5 MG DAILY 01/13 1855 AC 01/15 PO 1059 Morphine Sulfate 1 MG Q12P PRN 01/13 2015 DC 01/15 IV 0406 Nicotine 14 MG DAILY 01/14 1000 AC 01/15 TOP 1055 Oxycodone HCl 10 MG Q8P PRN 01/15 1515 01/16 PO 0430 Oxycodone HCl 10 MG ONCE ONE 01/15 1430 DC 01/15 PO 01/15 1431 1446 Oxycodone/ 1 TAB Q6P PRN 01/13 2015 DC 01/15 Acetaminophen PO 1055 Polyethylene Glycol 17 GM AT BEDTIME PRN 01/13 2200 AC 01/15 PO 1442 Potassium Chloride 10 MEQ DAILY 01/14 1000 AC 01/15 PO 1059 Prednisone 30 MG DAILY 01/14 1404 AC 01/15 PO 1059 Warfarin Sodium 10 MG COUMADIN 1700 ONE 01/16 1700 AC PO 01/16 1701 Warfarin Sodium 10 MG COUMADIN 1700 ONE 01/15 1700 DC 01/15 PO 01/15 1701 1657 Last 24 Hrs of Lab/[place] Results Last 24 Hrs of Labs/Mics: Laboratory Tests 01/16/17 0615: Anion Gap 11, Estimated GFR > 60, BUN/Creatinine Ratio 37.0 H, PT Pending, INR Pending Assessment/Plan Assessment: 60-year-old male with PMH of CAD s/p [place] and stent placement in 2003, CHF, COPD on 1.5 L home O2, Afib on amiodarone and Warfarin, PVD, HTN, 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 venous insufficiency, was sent in from Dr. Cosby's office for worsening dyspnea, 15 lb weight gain, cough productive of thick green sputum, and mechanical fall. Problem list: # CHF exacerbation with 15 lb weight gain, increased dyspnea # COPD on 1.5 L O2, with thick green sputum # Back pain due to mechanical fall # atrial fibrillation on warfarin # CHF exacerbation with 15 lb weight gain, increased dyspnea - sleeps on recliner at baseline * Strict Is and Os * IV lasix 40 mg bid (home dose 40 mg PO) # COPD on 1.5 L O2, with thick green sputum * Follow respiratory culture, gram stain * Pulm consult with Dr. Esparza * TRC, nebs, symbicort * Azithromycin day 4/5 * Prednisone 30 mg started , watch blood sugar on steroids # TOMASZ * Supposed to be on autopap but not compliant # Back pain due to mechanical fall * Pain control with roxicodone 10 mg tid and NSAID * Avoid dilaudid for pain # IDDM - Home metformin, novolog, and levemir * Follow up hba1c * Continue accucheck, insulin sliding scale and levemir # Atrial fibrillation - INR 5.82 --> 2.87 --> 2.74 * Continue amiodarone 200 mg daily * Daily INR and warfarin (home warfarin 10mg daily) # Hx of CAD s/p [place] & stent placement and HTN * Continue Lisinopril 5 mg daily # DM neuropathy * continue Neurontin 600 TID # HLD * Continue statin # Constipation * Continue colace, miralax Diet: CC3, 2 gm sodium restriction DVT ppx: mech and pharm (hold warfarin if supratherapeutic INR) FULL CODE Labs: INR for warfarin dosing Problem List: 1. CHF exacerbation Pain Ratin Pain Location: back Pain Goal: Pain 7 or less Pain Plan: bee 10 tid Tomorrow's Labs & Rationales: inr for warfarin DVT/Prophylaxis: mechanical, pharmacological
--- NOTE | 2017-01-16 07:37 | ECHOCARDIOGRAM REPORT ---
LYNETTE SMITH Age: 61 : 1955 Gender: M Exam Date: 01/15/2017 10:02 Exam Location: [place] Ht (in): 72 Wt (lb): 315 BSA: 2.76 BP: 142 / 76 Ordering Physician: ASHLEY VIZCARRA MD Referring Physician: ASHLEY VIZCARRA MD Technologist: Luke Walker [facility] Room Number: 185-1 Indications: HEART FAILURE Rhythm: Atrial fibrillation Technical Quality: Fair, Technically difficult study FINDINGS Left Ventricle Normal size left ventricle. No obvious regional wall motion abnormalities. Left ventricular wall thickness mildly increased. Normal left ventricular ejection fraction estimated at 55-60%. Right Ventricle Right ventricular dilatation. Right Atrium Right atrial dilatation. Left Atrium Mild to moderate left atrial dilatation. Mitral Valve Mitral valve thickened. Trace to mild mitral regurgitation. Aortic Valve Trileaflet aortic valve. Diffuse thickening (sclerosis) of the aortic valve cusps without reduced excursion. No aortic stenosis. No aortic regurgitation. Tricuspid Valve Tricuspid valve not well visualized, grossly normal. Trace to mild tricuspid regurgitation. Pulmonic Valve Pulmonic valve not well visualized. Pericardium Small pericardial effusion. Great Vessels Aortic root and proximal ascending aorta not well visualized, grossly normal. CONCLUSIONS 1. This was a technically difficult examinaiton. 2. MIld to moderate aortic sclerosis is present with no valvular stenosis or insufficiency. 3. Mitral leafle thickening is present with minimal to mild mitral insufficiency and mild to moderate left atrial enlargement. 4. A very small pericardial effusion is present . 5. The left ventricular chamber size is normal with mild concentric hypertrophy and a normal ejection fraction. 6. MIld enlargement of the right heart chambers is present with minimal to mild tricuspid insufficiency. The RV systolic pressure could not be accurately assessed. Toño Cosby M.D. (Electronically Signed) Final Date: 16 January 2017 07:36 MEASUREMENTS (Male / Female) Normal Values 2D ECHO LV Diastolic Diameter PLAX 5.1 cm 4.2 - 5.9 / 3.9 - 5.3 cm LV Systolic Diameter PLAX 3.6 cm 2.1 - 4.0 cm LV Fractional Shortening PLAX 29.4 % 25 - 46 % LV Ejection Fraction 2D Teich 56.0 % IVS Diastolic Thickness 1.4 cm LVPW Diastolic Thickness 1.4 cm LV Relative Wall Thickness 0.5 RV Internal Dim ED PLAX 3.7 cm 1.9 - 3.8 cm LVOT Diameter 2.4 cm Aortic Root Diameter 3.1 cm LA Systolic Diameter LX 4.5 cm 3.0 - 4.0 / 2.7 - 3.8 cm LA Volume 78.0 cm 18 - 58 / 22 - 52 cm Ascending Aorta Diameter 3.7 cm DOPPLER AV Peak Velocity 109.0 cm/s AV Peak Gradient 4.8 mmHg AV Mean Velocity 83.2 cm/s AV Mean Gradient 3.0 mmHg AV Velocity Time Integral 21.9 cm LVOT Peak Velocity 82.7 cm/s LVOT Peak Gradient 2.7 mmHg LVOT Mean Velocity 48.9 cm/s LVOT Mean Gradient 1.0 mmHg LVOT Velocity Time Integral 16.4 cm LVOT Stroke Volume 74.2 cm AV Area Cont Eq vti 3.4 cm AV Area Cont Eq pk 3.4 cm MV Peak Velocity 143.0 cm/s MV Peak Gradient 8.2 mmHg MV Mean Velocity 81.4 cm/s MV Mean Gradient 3.0 mmHg Mitral E Point Velocity 121.0 cm/s MV PHT Velocity 145.0 cm/s MV Deceleration Armstrong 629.0 cm/s MV Pressure Half Time 69.2 ms MV Area PHT 3.2 cm MV Deceleration Time 222.0 ms PV Peak Velocity 77.2 cm/s PV Peak Gradient 2.4 mmHg PV Mean Velocity 51.7 cm/s PV Mean Gradient 1.5 mmHg PV Velocity Time Integral 13.6 cm LV E' Lateral Velocity 8.3 cm/s Mitral E to LV E' Lateral Ratio 14.6 LV E' Septal Velocity 8.6 cm/s Mitral E to LV E' Septal Ratio 14.1
[2017-01-16 08:23] LABS: PT 28.3 SEC (9.4-12.5)
[2017-01-16 08:25] VITALS: BP 155/92
[2017-01-16] MEDS ORDERED: PREDNISONE10 M2 PO (13:21)
[2017-01-16] MEDS ORDERED: LASIX40 M1 PO (13:21)
--- NOTE | 2017-01-16 13:23 | Patient Discharge Instructions ---
Discharge Instructions General Discharge Information You were seen/treated for: CHF exacerbation Special Instructions: - Please take alternating 40 mg and 80 mg PO lasix for the next 1 week as discussed with Dr. Cosby. - Please follow up with Dr. Cosby as discussed -Please follow up with your PCP within a week of discharge. -Please return to the hospital if your symptoms not improve/worsen. Diet Continue normal diet: Yes Recommended Diet: Heart Healthy Activity Full Activity/No Limits: Yes Acute Coronary Syndrome Inclusion Criteria At DC or during hospital stay patient has or had the following: ACS DIAGNOSIS No Discharge Core Measures Meds if any: Prescribed or Continued at Discharge Meds if any: NOT Prescribed or Continued at Discharge Congestive Heart Failure Inclusion Criteria At DC or during hospital stay patient has or had the following: CHF DIAGNOSIS Yes Discharge Core Measures Meds if any: Prescribed or Continued at Discharge Meds if any: NOT Prescribed or Continued at Discharge Cerebrovascular accident Inclusion Criteria At DC or during hospital stay patient has or had the following: CVA/TIA Diagnosis No Discharge Core Measures Meds if any: Prescribed or Continued at Discharge Meds if any: NOT Prescribed or Continued at Discharge Venous thromboembolism Inclusion Criteria VTE Diagnosis No VTE Type NONE VTE Confirmed by (Test) NONE Discharge Core Measures - Per Current guidelines, there needs to be overlap - treatment for the first 5 days of Warfarin therapy. - If discharged on Warfarin prior to 5 days of - overlap therapy, the patient will need to be - assessed for post discharge needs including - *Post discharge parental anticoagulation - *Warfarin and/or parental anticoagulation education - *Follow up date to check INR post discharge At least 5 days overlap therapy as Inpatient No Meds if any: Prescribed or Continued at Discharge Note: Overlap Therapy is Warfarin and Anticoagulant Meds if any: NOT Prescribed or Continued at Discharge
--- NOTE | 2017-01-16 14:21 | PN- Cardiology ---
Subjective Subjective: Continue slow clinical improvement. The patient continues to have more than 2+ lower extremity edema with stasis changes but the edema has improved slightly with diuresis. The patient's respiratory status is improving with diuresis and increased nebulizer treatments. Objective Vital Signs and I&Os Vital Signs Date Time Temp Pulse Resp B/P Pulse O2 O2 Flow FiO2 Ox Delivery Rate 01/16 1024 96 150/90 01/16 0846 96 Nasal 1.5L Cannula 01/16 0825 98.3 85 16 155/92 97 Nasal 1.5L Cannula 01/16 0000 94 Nasal 1.5L Cannula 01/15 2338 97.9 84 20 138/84 96 Nasal Cannula 01/15 2127 102 142/80 01/15 1600 96 Nasal 1.5L Cannula 01/15 1600 97.8 77 20 122/62 97 Nasal 1.5L Cannula 01/15 1600 97 Nasal 1.5L Cannula Intake & Output 01/16 1600 01/16 0800 01/16 0000 01/15 1600 01/15 0800 01/15 0000 Intake Total 005 651 0546 750 570 Output Total 850 2450 2450 800 1350 Balance -650 -2000 -1450 -50 -780 Intake, IV 20 Intake, Oral 783 869 7529 750 550 Number 0 Bowel Movements Output, Urine 850 2450 2450 800 1350 Patient 322 lb 322 lb Weight Current Medications: Current Medications Sig/Ann-Marie Start time Last Medication Dose Route Stop Time Status Admin Acetaminophen 650 MG Q6P PRN 01/13 2015 AC PO Albuterol Sulfate 3 ML BID 01/14 1030 AC 01/16 INH 1254 Amiodarone HCl 200 MG DAILY 01/14 1000 AC 01/16 PO 1024 Aspirin Buffered 81 MG DAILY 01/14 1000 AC 01/16 PO 1024 Atorvastatin Calcium 40 MG 1700 01/14 1700 AC 01/15 PO 1657 Azithromycin 250 MG DAILY 01/14 1415 AC 01/16 PO 01/18 1200 1024 Budesonide/ 2 PUF BID 01/13 2200 AC 01/16 Formoterol Fumarate INH 1026 Carvedilol 25 MG BID 01/13 2200 AC 01/16 PO 1024 Cholecalciferol 1,000 IU DAILY 01/14 1000 AC 01/16 PO 1024 Cyanocobalamin 1,000 MCG DAILY 01/14 1000 AC 01/16 PO 1023 Fenofibrate 145 MG DAILY 01/14 1000 AC 01/16 PO 1027 Furosemide 40 MG BID 01/14 2200 AC 01/16 IV 01/17 1100 1028 Gabapentin 600 MG Q8 01/13 2200 AC 01/16 PO 1250 Guaifenesin 600 MG Q12 01/15 1105 AC 01/15 PO 2123 Ibuprofen 600 MG Q6P PRN 01/14 1415 AC PO Insulin Aspart 0 TIDAC 01/14 0800 AC 01/16 SC 1248 Insulin Aspart 0 AT BEDTIME 01/13 2200 AC SC Insulin Detemir 25 UNITS BID 01/13 2200 AC 01/16 SC 1032 Ipratropium [place] 2.5 ML BID 01/14 1030 AC 01/16 INH 0844 Lisinopril 5 MG DAILY 01/13 1855 AC 01/16 PO 1024 Morphine Sulfate 1 MG Q12P PRN 01/13 2015 DC 01/15 IV 0406 Nicotine 14 MG DAILY 01/14 1000 AC 01/16 TOP 1025 Oxycodone HCl 10 MG Q8P PRN 01/16 1300 AC 01/16 PO 1301 Oxycodone HCl 10 MG .STK-MED ONE 01/16 0425 DC PO 01/16 0426 Oxycodone HCl 10 MG Q8P PRN 01/15 1515 DC 01/16 PO 0430 Oxycodone HCl 10 MG ONCE ONE 01/15 1430 DC 01/15 PO 01/15 1431 1446 Oxycodone/ 1 TAB Q6P PRN 01/13 2015 DC 01/15 Acetaminophen PO 1055 Polyethylene Glycol 17 GM AT BEDTIME PRN 01/13 2200 AC 01/15 PO 1442 Potassium Chloride 10 MEQ DAILY 01/14 1000 AC 01/16 PO 1024 Prednisone 30 MG DAILY 01/14 1404 AC 01/16 PO 1026 Warfarin Sodium 10 MG COUMADIN 1700 ONE 01/16 1700 AC PO 01/16 1701 Warfarin Sodium 10 MG COUMADIN 1700 ONE 01/15 1700 DC 01/15 PO 01/15 1701 1657 Results Last 48 Hrs of Labs/Mics: Laboratory Tests 01/16/17 0615: Anion Gap 11, Estimated GFR > 60, BUN/Creatinine Ratio 37.0 H, PT 28.3 H, INR 2.72 H 01/15/17 0719: PT 28.5 H, INR 2.74 H Microbiology 01/14 2000 LOWER RESP: Respiratory Culture - COMP 01/14 2000 LOWER RESP: Gram Stain - COMP Assessment/Plan Assessment/Plan Assessment: 1. Worsening shortness of breath likely related to acute on chronic HFpEF -the patient is improving slowly clinically. When admitted to the hospital, on the day of admission, the patient was in extreme respiratory distress. The patient was unable to walk more than 5 feet without stopping due to severe dyspnea. The patient was unable to complete full sentences without stopping to catch his breath. At that time, on examination, the patient had evidence of bilateral rales. His chest x-ray in the emergency room confirmed the presence of new pulmonary edema. In addition, the patient had 3-4+ lower extremity edema extending to the mid thigh with areas of nonhealing ulceration on his right leg due to recent trauma. Since admission, with aggressive diuresis, the patient has continued to improve clinically. He is not yet at baseline however. 2. Probable exacerbation of underlying COPD; rule out bronchitis 3. Sleep apnea 4. Worsened back pain related to recent mechanical fall 5. Insulin-dependent diabetes 6. Persistent atrial fibrillation 7. History of coronary artery disease, status post stenting. 8. Hyperlipidemia Recommendations: -Continue IV Lasix 40 mg twice a day with close monitoring of intakes, outputs, and daily weights. The patient will receive IV Lasix 40 mg this evening and another 40 mg IV Lasix given in the morning. -The patient will be assessed tomorrow morning by Dr. Rajan in my absence. If the patient is stable, he can be discharged home at that time. -At discharge, the patient will take Lasix 40 mg twice a day alternating with 40 mg daily every other day. -The patient will see me in the office post discharge within 2 weeks. -The patient will be arranged to be seen in the CHF clinic for intermittent IV Lasix at discharge. -Please talk to Dr. Esparza prior to discharge to make sure that the patient's home pulmonary medications are arranged appropriately. -Continue nebulizer treatments for now, until discharge. -Follow-up laboratories in the morning, including BMP, magnesium -Continue oral pain control medications as discussed with house staff. OK to increase dose to 10/325 TID. -As noted above, the patient will be reassessed on Thursday for possible discharge on Thursday. Continue telemetry? Yes
[2017-01-16 16:46] VITALS: BP 158/87
[2017-01-17 00:19] VITALS: BP 150/90
[2017-01-17 07:57] VITALS: BP 132/74
[2017-01-17 08:17] LABS: PT 30.4 SEC (9.4-12.5)
--- NOTE | 2017-01-17 08:34 | PN- Housestaff ---
Subjective Follow-up For: CHF exacerbation Tele-Events Since Last Visit: Atrial fibrillation HR 70s-80s, no overnight events. Subjective: Patient seen and examiend at bedside this AM. He continues to endorse severe left sided back pain, bilateral lower extremity edema and dyspnea without much interval improvement from yesterday. Review of Systems Constitutional: Denies: chills, fever, malaise. EENTM: Denies: blurred vision, visual changes, hearing changes, nasal congestion. Cardiovascular: Reports: peripheral edema. Denies: chest pain, palpitations. Respiratory: Reports: cough, short of breath. Gastrointestinal: Denies: abdominal pain, constipation, diarrhea. Genitourinary: Denies: dysuria. Musculoskeletal: Reports: back pain. Skin: Denies: rash. Neurological/Psychological: Denies: confusion, headache. Hematologic/Endocrine: Denies: bruising, bleeding. Objective Last 24 Hrs of Vital Signs/I&O Vital Signs Date Time Temp Pulse Resp B/P Pulse O2 O2 Flow FiO2 Ox Delivery Rate 01/17 0757 97.8 80 20 132/74 96 Nasal 2.0L Cannula 01/17 0019 97.7 83 20 150/90 96 Nasal 2.0L Cannula 01/17 0000 95 Nasal 1.5L Cannula 01/16 2131 72 130/72 01/16 1648 95 Nasal 1.5L Cannula 01/16 1646 85 17 158/87 96 Nasal 1.5L Cannula Intake & Output 01/17 1600 01/17 0800 01/17 0000 Intake Total 480 800 Output Total 450 1650 Balance 30 -850 Intake, Oral 480 800 Number 1 Bowel Movements Output, Urine 450 1650 Patient 324 lb Weight Physical Exam General Appearance: Alert, Oriented X3, Cooperative, No Acute Distress Skin: No Significant Lesion HEENT: Atraumatic, Mucous Membr. moist/pink Neck: Supple Lymphatic: Cervical nl Cardiovascular: Irregularly irregular Lungs: Normal Air Movement, No wheezing appreciated. Abdomen: Normal Bowel Sounds, Soft Neurological: Normal Speech, Normal Tone Extremities: No Clubbing, No Cyanosis, 3+ pitting edema bilaterally. Current Medications: Current Medications Sig/Ann-Marie Start time Last Medication Dose Route Stop Time Status Admin Acetaminophen 650 MG Q6P PRN 01/13 2015 AC PO Albuterol Sulfate 3 ML BID 01/14 1030 AC 01/17 INH 1136 Amiodarone HCl 200 MG DAILY 01/14 1000 AC 01/17 PO 1008 Aspirin Buffered 81 MG DAILY 01/14 1000 AC 01/17 PO 1009 Atorvastatin Calcium 40 MG 1700 01/14 1700 AC 01/16 PO 1743 Azithromycin 250 MG DAILY 01/14 1415 AC 01/17 PO 01/18 1200 1011 Budesonide/ 2 PUF BID 01/13 2200 AC 01/17 Formoterol Fumarate INH 1009 Carvedilol 25 MG BID 01/13 2200 AC 01/17 PO 1009 Cholecalciferol 1,000 IU DAILY 01/14 1000 AC 01/17 PO 1011 Cyanocobalamin 1,000 MCG DAILY 01/14 1000 AC 01/17 PO 1010 Fenofibrate 145 MG DAILY 01/14 1000 AC 01/17 PO 1011 Furosemide 40 MG BID 01/14 2200 DC 01/17 IV 01/17 1100 1011 Gabapentin 600 MG Q8 01/13 2200 AC 01/17 PO 0518 Guaifenesin 600 MG Q12 01/15 1105 AC 01/17 PO 1009 Ibuprofen 600 MG Q6P PRN 01/14 1415 AC PO Insulin Aspart 0 TIDAC 01/14 0800 AC 01/17 SC 0842 Insulin Aspart 0 AT BEDTIME 01/13 2200 AC SC Insulin Detemir 25 UNITS BID 01/13 2200 AC 01/17 SC 0843 Ipratropium [place] 2.5 ML BID 01/14 1030 AC 01/17 INH 1014 Lisinopril 5 MG DAILY 01/13 1855 AC 01/17 PO 1011 Nicotine 14 MG DAILY 01/14 1000 AC 01/17 TOP 1012 Oxycodone HCl 10 MG Q8P PRN 01/16 1300 AC 01/17 PO 0518 Oxycodone HCl 10 MG Q8P PRN 01/15 1515 DC 01/16 PO 0430 Polyethylene Glycol 17 GM AT BEDTIME PRN 01/13 2200 AC 01/16 PO 2134 Potassium Chloride 10 MEQ DAILY 01/14 1000 AC 01/17 PO 1009 Prednisone 30 MG DAILY 01/14 1404 AC 01/17 PO 1009 Warfarin Sodium 9 MG COUMADIN 1700 ONE 01/17 1700 UNVr PO 01/17 1701 Warfarin Sodium 10 MG COUMADIN 1700 ONE 01/16 1700 DC 01/16 PO 01/16 1701 1744 Last 24 Hrs of Lab/[place] Results Last 24 Hrs of Labs/Mics: Laboratory Tests 01/17/17 0750: Anion Gap 10, Estimated GFR > 60, BUN/Creatinine Ratio 36.7 H, Magnesium 1.9 01/17/17 0620: PT 30.4 H, INR 2.93 H Assessment/Plan Assessment: Mr. 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 venous insufficiency, was sent in from Dr. Cosby's office for worsening dyspnea, 15 lb weight gain, cough productive of thick green sputum, and mechanical fall. Problem list: # CHF exacerbation with 15 lb weight gain, increased dyspnea # COPD on 1.5 L O2, with thick green sputum # Back pain due to mechanical fall # atrial fibrillation on warfarin Patient is currently admitted to the telemetry floor and the following is the management: # CHF exacerbation with 15 lb weight gain, increased dyspnea - Sleeps on recliner at baseline * Strict Is and Os * IV lasix 40 mg bid (home dose 40 mg PO), last dose IV given this AM * Encourage compression stockings and leg elevation * Close cardio follow up after discharge * Low Na diet # COPD on 1.5 L O2, with thick green sputum * Respiratory culture, gram stain show mixed jocelyne after 2 days * Pulm consult with Dr. Esparza appreciated * TRC, nebs, symbicort * Azithromycin day 5/ * Prednisone 30 mg started, watch blood sugar on steroids # TOMASZ * Supposed to be on autopap but not compliant # Back pain due to mechanical fall * Pain control with roxicodone 10 mg tid and NSAID * Avoid dilaudid for pain # IDDM - Home metformin, novolog, and levemir * Continue accucheck, insulin sliding scale and levemir # Atrial fibrillation - INR 5.82 --> 2.87 --> 2.74 * Continue amiodarone 200 mg daily * Daily INR and warfarin (home warfarin 10mg daily) # Hx of CAD s/p SD & stent placement and HTN * Continue Lisinopril 5 mg daily # DM neuropathy * continue Neurontin 600 TID # HLD * Continue statin # Constipation * Continue colace, miralax Diet: CC3, 2 gm sodium restriction DVT ppx: mech and pharm (hold warfarin if supratherapeutic INR) FULL CODE Labs: INR for warfarin dosing Problem List: 1. Obstructive sleep apnea 2. Pulmonary hypertension 3. Right heart failure 4. HTN (hypertension) 5. HLD (hyperlipidemia) 6. CAD (coronary artery disease) 7. Afib Pain Ratin Pain Location: Left back. Pain Goal: Pain 7 or less Pain Plan: Oxycodone 10 mg PO Q8P. Tomorrow's Labs & Rationales: None, discharge today.
--- NOTE | 2017-01-17 14:19 | PN- Cardiology ---
Subjective Subjective: The patient is feeling better. However he is not feeling back to baseline. He is still short of breath on exertion but he is able to walk around the floor with his walker. He still has significant edema. He has had significant diuresis with about 10 L negative since admission. He remains on 40 mg IV Lasix twice daily. His BUN and creatinine have risen slightly. Objective Vital Signs and I&Os Vital Signs Date Time Temp Pulse Resp B/P Pulse O2 O2 Flow FiO2 Ox Delivery Rate 01/17 1130 96 Nasal 1.5L Cannula 01/17 0757 97.8 80 20 132/74 96 Nasal 2.0L Cannula 01/17 0019 97.7 83 20 150/90 96 Nasal 2.0L Cannula 01/17 0000 95 Nasal 1.5L Cannula 01/16 2131 72 130/72 01/16 1648 95 Nasal 1.5L Cannula 01/16 1646 85 17 158/87 96 Nasal 1.5L Cannula Intake & Output 01/17 1600 01/17 0800 01/17 0000 01/16 1600 01/16 0800 01/16 0000 Intake Total 480 800 200 450 Output Total 450 1650 6597 710 5867 Balance 30 -850 -1600 -650 -2000 Intake, Oral 480 800 200 450 Number 1 0 Bowel Movements Output, Urine 450 1650 3839 052 6357 Patient 324 lb 324 lb 322 lb Weight Physical Exam: HEENT exam is normal Chest is clear Heart is regular with no murmurs Extremities reveal 2+ edema Current Medications: Current Medications Sig/Ann-Marie Start time Last Medication Dose Route Stop Time Status Admin Acetaminophen 650 MG Q6P PRN 01/13 2015 AC PO Albuterol Sulfate 3 ML BID 01/14 1030 AC 01/17 INH 1136 Amiodarone HCl 200 MG DAILY 01/14 1000 AC 01/17 PO 1008 Aspirin Buffered 81 MG DAILY 01/14 1000 AC 01/17 PO 1009 Atorvastatin Calcium 40 MG 1700 01/14 1700 AC 01/16 PO 1743 Azithromycin 250 MG DAILY 01/14 1415 AC 01/17 PO 01/18 1200 1011 Budesonide/ 2 PUF BID 01/13 2200 AC 01/17 Formoterol Fumarate INH 1009 Carvedilol 25 MG BID 01/13 2200 AC 01/17 PO 1009 Cholecalciferol 1,000 IU DAILY 01/14 1000 AC 01/17 PO 1011 Cyanocobalamin 1,000 MCG DAILY 01/14 1000 AC 01/17 PO 1010 Fenofibrate 145 MG DAILY 01/14 1000 AC 01/17 PO 1011 Furosemide 40 MG BID 01/14 2200 DC 01/17 IV 01/17 1100 1011 Gabapentin 600 MG Q8 01/13 2200 AC 01/17 PO 1304 Guaifenesin 600 MG Q12 01/15 1105 AC 01/17 PO 1009 Ibuprofen 600 MG Q6P PRN 01/14 1415 AC PO Insulin Aspart 0 TIDAC 01/14 0800 AC 01/17 SC 1305 Insulin Aspart 0 AT BEDTIME 01/13 2200 AC SC Insulin Detemir 25 UNITS BID 01/13 2200 AC 01/17 SC 0843 Ipratropium [place] 2.5 ML BID 01/14 1030 AC 01/17 INH 1014 Lisinopril 5 MG DAILY 01/13 1855 AC 01/17 PO 1011 Nicotine 14 MG DAILY 01/14 1000 AC 01/17 TOP 1012 Oxycodone HCl 10 MG Q8P PRN 01/16 1300 AC 01/17 PO 1304 Polyethylene Glycol 17 GM AT BEDTIME PRN 01/13 2200 AC 01/16 PO 2134 Potassium Chloride 10 MEQ DAILY 01/14 1000 AC 01/17 PO 1009 Prednisone 30 MG DAILY 01/14 1404 AC 01/17 PO 1009 Warfarin Sodium 9 MG COUMADIN 1700 ONE 01/17 1700 AC PO 01/17 1701 Warfarin Sodium 10 MG COUMADIN 1700 ONE 01/16 1700 DC 01/16 PO 01/16 1701 1744 Results Last 48 Hrs of Labs/Mics: Laboratory Tests 01/17/17 0750: Anion Gap 10, Estimated GFR > 60, BUN/Creatinine Ratio 36.7 H, Magnesium 1.9 01/17/17 0620: PT 30.4 H, INR 2.93 H 01/16/17 0615: Anion Gap 11, Estimated GFR > 60, BUN/Creatinine Ratio 37.0 H, PT 28.3 H, INR 2.72 H Assessment/Plan Assessment/Plan The patient does not feel well enough to go home. He wants to have a little bit more diuresis and be breathing a little bit better before discharge. We will keep him one more day on IV Lasix and check his electrolytes in the morning and hopefully he will feel well enough to be able to be discharged in the AM. Continue telemetry? Yes
[2017-01-17 16:37] VITALS: BP 152/76
[2017-01-18 00:32] VITALS: BP 120/80
[2017-01-18 07:51] VITALS: BP 136/78
[2017-01-18 08:20] LABS: PT 38.4 SEC (9.4-12.5)
[2017-01-18 09:10] VITALS: BP 136/78
[2017-01-18] MEDS ORDERED: PREDNISONE10 M2 PO (10:53)
[2017-01-18] MEDS ORDERED: NICODERM CQ1 EAC1 TOP (10:53)
--- NOTE | 2017-01-18 11:21 | PN- Cardiology ---
Subjective Subjective: The patient is still somewhat short of breath but is feeling better than yesterday. He did continue to diurese on IV Lasix. He is down another 2 L since yesterday. His edema has decreased. He has been ambulatory with a walker around the floor. Objective Vital Signs and I&Os Vital Signs Date Time Temp Pulse Resp B/P Pulse O2 O2 Flow FiO2 Ox Delivery Rate 01/18 0910 98.2 86 20 136/78 01/18 0910 98.2 86 20 136/78 01/18 0910 98.2 86 20 136/78 01/18 0800 94 Nasal 1.5L Cannula 01/18 0751 98.2 86 20 136/78 96 Nasal 2.0L Cannula 01/18 0751 96 Nasal 1.5L Cannula 01/18 0032 97.4 80 20 120/80 96 Nasal 2.0L Cannula 01/17 1637 97.1 79 20 152/76 91 Nasal 1.5L Cannula 01/17 1538 91 Room Air 01/17 1130 96 Nasal 1.5L Cannula Intake & Output 01/18 1600 01/18 0800 01/18 0000 01/17 1600 01/17 0800 01/17 0000 Intake Total 900 600 480 800 Output Total 8583 796 2850 450 1650 Balance -550 -150 -1450 30 -850 Intake, Oral 900 600 480 800 Number 1 1 Bowel Movements Output, Urine 8838 752 6135 450 1650 Patient 315 lb 324 lb 324 lb Weight Physical Exam: HEENT exam is normal Chest is clear Heart is regular Extremities reveal 1+ edema Current Medications: Current Medications Sig/Ann-Marie Start time Last Medication Dose Route Stop Time Status Admin Acetaminophen 650 MG Q6P PRN 01/13 2015 AC 01/18 PO 0651 Albuterol Sulfate 3 ML BID 01/14 1030 AC 01/17 INH 2115 Amiodarone HCl 200 MG DAILY 01/14 1000 AC 01/18 PO 0910 Aspirin Buffered 81 MG DAILY 01/14 1000 AC 01/18 PO 0909 Atorvastatin Calcium 40 MG 1700 01/14 1700 AC 01/17 PO 1843 Azithromycin 250 MG DAILY 01/14 1415 AC 01/18 PO 01/18 1200 0910 Budesonide/ 2 PUF BID 01/13 2200 AC 01/18 Formoterol Fumarate INH 0908 Carvedilol 25 MG BID 01/13 2200 AC 01/18 PO 0910 Cholecalciferol 1,000 IU DAILY 01/14 1000 AC 01/18 PO 0910 Cyanocobalamin 1,000 MCG DAILY 01/14 1000 AC 01/18 PO 0910 Fenofibrate 145 MG DAILY 01/14 1000 AC 01/18 PO 0909 Furosemide 40 MG BID 01/17 2200 AC 01/18 IV 0915 Gabapentin 600 MG Q8 01/13 2200 AC 01/18 PO 0554 Guaifenesin 600 MG Q12 01/15 1105 AC 01/18 PO 0910 Ibuprofen 600 MG Q6P PRN 01/14 1415 AC 01/18 PO 0909 Insulin Aspart 0 TIDAC 01/14 0800 AC 01/18 SC 0825 Insulin Aspart 0 AT BEDTIME 01/13 2200 AC 01/17 SC 2254 Insulin Detemir 25 UNITS BID 01/13 2200 AC 01/18 SC 0911 Ipratropium [place] 2.5 ML BID 01/14 1030 AC 01/18 INH 0749 Lisinopril 5 MG DAILY 01/13 1855 AC 01/18 PO 0910 Nicotine 14 MG DAILY 01/14 1000 AC 01/18 TOP 0913 Oxycodone HCl 10 MG Q8P PRN 01/16 1300 AC 01/18 PO 0558 Polyethylene Glycol 17 GM AT BEDTIME PRN 01/13 2200 AC 01/16 PO 2134 Potassium Chloride 10 MEQ DAILY 01/14 1000 AC 01/18 PO 0909 Prednisone 30 MG DAILY 01/14 1404 AC 01/18 PO 0910 Warfarin Sodium 9 MG COUMADIN 1700 ONE 01/17 1700 DC 01/17 PO 01/17 1701 1844 Results Last 48 Hrs of Labs/Mics: Laboratory Tests 01/18/17 0830: Anion Gap 12, Estimated GFR > 60, BUN/Creatinine Ratio 43.6 H 01/18/17 0656: PT 38.4 H, INR 3.70 H 01/17/17 0750: Anion Gap 10, Estimated GFR > 60, BUN/Creatinine Ratio 36.7 H, Magnesium 1.9 01/17/17 0620: PT 30.4 H, INR 2.93 H Assessment/Plan Assessment/Plan The patient is better. He feels he is stable enough to be discharged at this time. His BUN is slightly higher than before. I think he can be discharged on oral Lasix as outlined previously by Dr. Cosby. He will follow him up closely in the office. Continue telemetry? Not applicable
--- NOTE | 2017-01-19 04:15 | Discharge Summary ---
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 venous insufficiency, was sent in from Dr. Garsia's office for worsening dyspnea, 15 lb weight gain, cough productive of thick green sputum, and mechanical fall. His signs and symptoms were consistent with CHF exacerbation and he improved with IV lasix in the hospital. He was discharged on PO lasix, alternating 40 and 80 mg daily for the next 1 week. He was also started on 30 mg prednisone in the hospital for qheezing, discharged on taper down of 10 mg every 3 days. He completed 5 day of azithromycin in the hospital. Instructed to follow up with Dr. Esparza. His INR was supratherapeutic on admission, and warfarin given when his INR < 3. His INR supratherapeutic at discharge, asked to hold warfarin that day, and resume the next day after checking INR at coumadin clinic. He had a mechanical fall few days prior to admission, and pain was controlled with roxicodone 10 mg tid. Allergies: Coded Allergies: NO KNOWN ALLERGIES (08/21/16) Significant Procedures: ECHOCARDIOGRAM Left Ventricle Normal size left ventricle. No obvious regional wall motion abnormalities. Left ventricular wall thickness mildly increased. Normal left ventricular ejection fraction estimated at 55-60%. Right Ventricle Right ventricular dilatation. Right Atrium Right atrial dilatation. Left Atrium Mild to moderate left atrial dilatation. Mitral Valve Mitral valve thickened. Trace to mild mitral regurgitation. Aortic Valve Trileaflet aortic valve. Diffuse thickening (sclerosis) of the aortic valve cusps without reduced excursion. No aortic stenosis. No aortic regurgitation. Tricuspid Valve Tricuspid valve not well visualized, grossly normal. Trace to mild tricuspid regurgitation. Pulmonic Valve Pulmonic valve not well visualized. Pericardium Small pericardial effusion. Great Vessels Aortic root and proximal ascending aorta not well visualized, grossly normal. CONCLUSIONS 1. This was a technically difficult examinaiton. 2. MIld to moderate aortic sclerosis is present with no valvular stenosis or insufficiency. 3. Mitral leafle thickening is present with minimal to mild mitral insufficiency and mild to moderate left atrial enlargement. 4. A very small pericardial effusion is present . 5. The left ventricular chamber size is normal with mild concentric hypertrophy and a normal ejection fraction. 6. MIld enlargement of the right heart chambers is present with minimal to mild tricuspid insufficiency. The RV systolic pressure could not be accurately assessed. Toño Garsia M.D. (Electronically Signed) Final Date: 16 January 2017 07:36 Disposition Summary Disposition Principal Diagnosis: CHF exacerbation Additional Diagnosis: COPD Back pain due to mechanical fall Discharge Disposition: home or self care Discharge Instructions General Discharge Information Code Status: Full Code Patient's Diet: CC 3 Patient's Activity: As tolerated Follow-Up Instructions/Appts: F/U with Dr. Tatum and Dr. Esparza in 1 week. Medications at Discharge Discharge Medications: Continue taking these medications: Gabapentin (Gabapentin) 600 MG TABLET 1 Tablet ORAL THREE TIMES DAILY Comments: Last Taken:01/18/17 Time:5:54A.M Amiodarone HCl (Amiodarone HCl) 200 MG TABLET 1 Tablet ORAL DAILY Comments: Last Taken: 01/18/17 Time: 9:10A.M Fenofibrate (Fenofibrate) 160 MG TABLET 1 Tablet ORAL DAILY Comments: Last Taken:01/18/17 Time:9:10A.M Potassium Chloride (Potassium Chloride) 10 MEQ CAPSULE.ER 1 Capsule ORAL DAILY Comments: Last Taken:01/18/17 Time:9:10A.M Lisinopril (Prinivil) 5 MG TABLET 1 Tablet ORAL DAILY Comments: Last Taken:01/18/17 Time:9:10A.M Levalbuterol HCl (Levalbuterol HCl) 1.25 MG/3 ML VIAL.NEB 1 Inhalation ORAL Every 4 hours Qty = 75 Comments: Last Taken:NOT GIVEN THIS ADMISSION Time: 01/18/17 AT 7.49A.M ALBUTEROL NEB [place] GIVEN Polyethylene Glycol 3350 (Miralax) 119 GM POWDER 17 Gram ORAL AT BEDTIME as needed for CONSTIPATION Days = 30 Comments: NOT GIVEN THIS ADMISSION Docusate Sodium (Colace) 100 MG CAPSULE 1 Capsule ORAL TWICE DAILY as needed for Constipation Qty = 30 Comments: NOT GIVEN THIS ADMISSION Budesonide/Formoterol Fumarate (Symbicort 160-4.5 Mcg Inhaler) 10.2 GM HFA.AER.AD 2 Puff Inhale through mouth TWICE DAILY Days = 30 Comments: Last Taken:01/18/17 Time:9:10A.M Metformin HCl (Metformin HCl) 850 MG TABLET 850 Milligram ORAL 0800,1700 Days = 30 Comments: NOT GIVEN THIS ADMISSION Insulin Aspart, Recombinant (Novolog Flexpen) 100 UNIT/1 ML INSULN.PEN 0 Inject into fatty tissue BEFORE MEALS AND AT BEDTIME Days = 30 Instructions: BLOOD SUGAR BEFORE MEALS UNITS BEDTIME LESS THAN 80 INITIATE HYPOGLYCEMIA 80-150 16 UNITS 151-200 18 UNITS 201-250 20 UNITS 251-300 22 UNITS 4 UNITS 301-350 24 UNITS 6 UNITS 351-400 26 UNITS 8 UNITS 351-400 26 UNITS, CALL MD 10 UNITS, CALL MD Comments: Last Taken:01/18/17 Time:8:25A.M Insulin Detemir (Levemir Flextouch) 100 UNIT/ML (3 ML) INSULN.PEN 25 Units Inject into fatty tissue TWICE DAILY Comments: Last Taken:01/18/17 Time:9:10A.M PER PT; DECREASED FROM 30 UNITS TO SAVE MONEY PER PT Warfarin Sodium (Coumadin) 10 MG TABLET 1 Tablet ORAL As Directed Qty = 90 Comments: Last Taken:01/17/17 Time: 6:44P.M PER PT TAKES ALL DAYS EXCEPT THURSDAY Carvedilol (Carvedilol) 25 MG TABLET 1 Tablet ORAL TWICE DAILY Qty = 180 Comments: Last Taken:01/18/17 Time:9:10A.M Fluticasone Propionate (Flovent Hfa) (Unknown Strength) AER.W.ADAP Unknown Dose Qty = 12 Comments: PER PT MD ESPARZA DISCONTINUE Atorvastatin Calcium (Atorvastatin Calcium) 40 MG TABLET 1 Tablet ORAL DAILY Qty = 90 Comments: Last Taken:01/17/17 Time: 6:43P.M Aspirin (Ecotrin*) 81 MG TABLET.DR 1 Tablet ORAL DAILY Comments: Last Taken:01/18/17 Time:9:10A.M Cyanocobalamin (Vitamin B-12) (Vitamin B-12) 2,000 MCG TABLET 1 Tablet ORAL DAILY Comments: Last Taken:01/18/17 Time:9:10A.M Cholecalciferol (Vitamin D3) (Vitamin D) 2,000 UNIT TABLET 1 Tablet ORAL DAILY Comments: Last Taken:01/18/17 Time: 9:10A.M Oxycodone HCl (Oxycodone HCl) 10 MG TABLET 10 Milligram ORAL THREE TIMES DAILY Comments: Last Taken:01/18/17 Time: 6A.M Start taking the following new medications: Nicotine (Nicoderm Cq) 14 MG/24 HOUR PATCH.TD24 1 Patch On the skin DAILY Days = 14 No Refills Comments: Last Taken:01/18/17 Time:9:10A.M Prednisone (Prednisone) 10 MG TABLET 1 Tablet ORAL SEE INSTRUCTIONS Qty = 9 No Refills Instructions: Please take 2 pills (20 mg) for the next 3 days. then take 1 pill (10 mg) for the next 3 days. Comments: Last Taken:01/18/17 Time:9:10A.M The following medications have been changed: Old: Furosemide (Lasix) 40 MG TABLET 1 Tablet ORAL TWICE DAILY New: Furosemide (Lasix) 40 MG TABLET 1 Tablet ORAL See Instructions Qty = 30 Instructions: For the next 1 week, please alternate taking 1 pill (40mg) and 2 pills (80mg) Comments: Last Taken:01/18/17 Time:9:10A.M Copies To: Anselmo ESPARZA MD; Mike GARSIA MD Attending MD Review Statement Documenting Attending: Mike GARSIA MD
--- NOTE | 2017-01-19 12:27 | Event Note ---
Event Note Event Note: Patient INR on the day of discharge was 3.7, he was instructed by the housestaff via phone to hold warfarin last night and check INR today([facility]) to adjust warfarin dose. I spoke to the patient today for a follow up and to reinforce the improtance of checking his INR as soon as he can, he expressed understanding he told me that he did not take his warfarin yesterday but is going to take it today without checking INR eventhough he understands the risks and will try to go for blood check as soon as he can. Mentioned that he is dependent for transportation on his who is working. I spoke with our case management;they will arrange for a home blood draw for him today or tomorrow. Written INR script prepared.
== END 2017-01-18 11:42 | DRG 292 ==
LOC: ENRESERVDT → ENRESERVTM → ERH 11:36 → 1NO 14:35 → ERHI 14:35 → ENPENDDIS 14:35 → 1NO 16:30
PROVIDERS: Internal Medicine; Physician Assistant Medical; Radiology Diagnostic Radiology; Student in an Organized Health Care Education/Training Program; ADMIT Specialist
DX: I11.0 Hypertensive heart disease with heart failure (principal); Z68.41 Body mass index [BMI] 40.0-44.9, adult; E11.40 Type 2 diabetes mellitus with diabetic neuropathy, unspecified; I27.2 Other secondary pulmonary hypertension; Z99.81 Dependence on supplemental oxygen; I50.33 Acute on chronic diastolic (congestive) heart failure; I25.10 Atherosclerotic heart disease of native coronary artery without angina pectoris; Z95.5 Presence of coronary angioplasty implant and graft; J44.9 Chronic obstructive pulmonary disease, unspecified; Z79.84 Long term (current) use of oral hypoglycemic drugs; I48.91 Unspecified atrial fibrillation; Z79.01 Long term (current) use of anticoagulants; E78.5 Hyperlipidemia, unspecified; Z95.1 Presence of aortocoronary bypass graft; I73.9 Peripheral vascular disease, unspecified; I25.2 Old myocardial infarction; G47.33 Obstructive sleep apnea (adult) (pediatric); Z79.4 Long term (current) use of insulin; E66.9 Obesity, unspecified
CPT/HCPCS: 1NSP; 82436; 87070; 93005; 93010; 93306; 96374; 96375; J0456; J1940; J2930; J3490; J7512

== ENCOUNTER 2017-03-24 09:54 | Inpatient (IN) | payer OTHER ==
[~2017-03-24] VITALS: Ht 182.9 cm; Wt 144.2 kg
[~2017-03-24 09:54] MED LIST changes: +ASPIRIN EC81 M1 PO; +ATORVASTATIN CA40 M1 PO; +CARVEDILOL25 M1 PO; +FLOVENT HFA12 GM; +LEVEMIR FL100 UNIT/1 SC; +NICODERM CQ1 EAC1 TOP; +OXYCODONE HCL10 M2 PO; +VITAMIN B-122000 MC1 PO; +VITAMIN D2000 UNI1 PO
--- NOTE | 2017-03-24 09:58 | NUR ---
PT SENT IN BY DR. GARSIA FOR ADMIT TO HIS SERVICE. FOR INCREASED SOB AND SORES TO BILAT LOWER EXT. THAT ARE WEEPING. PT REPORTS FALLING 2 DAYS AGO AND THAT ISHOW HE INJURED HIS LEGS. \ BILAT LOWER EXT. EDEMA NOTED. PT COUGHING WITH GREEN SPUTUM STATES FEVERS BUT HE IS TAKING ALEEVE FOR THEM .
--- NOTE | 2017-03-24 10:00 | NUR ---
PT STATES HE IS ON 02 1.5L DURING THE DAY AND 2L AT HS
--- NOTE | 2017-03-24 10:20 | NUR ---
PT TO ROOM 12 VIA W/C. CHANGED INTO GOWN. PLACED ON MONITOR. ASSISTED TO STRETCHER. PT NOTED WITH DEDRICK Manrique/Yves STEPHENS. PT RELUCTANT TO SIT BACK ON BED AND ELEVATE LEGS DUE TO "I CAN'T BREATH FROM MY COPD WHEN I'M SITTING BACK". STATES RECENT FALL. RA SAT 95%. PT PLACED ON 1.5L PER REQUEST SATS UP TO 98%. PT STATES HE IS A DIABETIC AND HASN'T TAKEN HIS INSULIN YET. FINGERSTICK 136. ALSO STATES DR GARSIA "CALLED AHEAD FOR ME". ASKING FOR IV AND PAIN MEDS, AWARE HE NEEDS TO SEE PROVIDER FIRST. AWAITING PROVIDER EVAL. Informed waiting has been performed.
--- NOTE | 2017-03-24 10:59 | NUR ---
DR POWERS IN FOR EVAL.
--- NOTE | 2017-03-24 11:09 | ED GENERAL ADULT ---
History of Present Illness General Chief Complaint: General Adult Stated Complaint: SENT BU DR GARSIA FOR ADMISSION Source: patient, old records Exam Limitations: no limitations Vital Signs & Intake/Output Vital Signs & Intake/Output Vital Signs Date Time Temp Pulse Resp B/P B/P Pulse O2 O2 Flow FiO2 Mean Ox Delivery Rate 03/26 0000 Nasal 1.5L Cannula 03/25 2200 98.0 69 20 130/70 95 Nasal 1.5L Cannula 03/25 1640 95 Room Air 03/25 1600 Nasal 1.5L Cannula 03/25 1600 98.4 84 20 124/60 95 03/25 1002 134/80 03/25 1002 134/80 03/25 1001 134/80 03/25 0848 97.9 79 18 134/80 97 Nasal 1.5L Cannula 03/25 0800 Nasal 1.5L Cannula 03/25 0752 95 Room Air Room Air ED Intake and Output 03/26 0000 03/25 1200 Intake Total 920 200 Output Total 2100 900 Balance -1180 -700 Intake, Oral 920 200 Output, Urine 2100 900 Patient 317 lb Weight Weight Chair scale Measurement Method Allergies Coded Allergies: NO KNOWN ALLERGIES (08/21/16) Reconcile Medications Amiodarone HCl 200 MG TABLET 1 TAB PO DAILY AFIB (Reported) Aspirin (Ecotrin*) 81 MG TABLET. 1 TAB PO DAILY HEART/BLOOD (Reported) Atorvastatin Calcium 40 MG TABLET 1 TAB PO DAILY CHOLESTEROL (Reported) Budesonide/Formoterol Fumarate (Symbicort 160-4.5 Mcg Inhaler) 10.2 GM HFA.AER.AD 2 PUF INH BID COPD Carvedilol 25 MG TABLET 1 TAB PO BID HEART (Reported) Cholecalciferol (Vitamin D3) (Vitamin D) 2,000 UNIT TABLET 1 TAB PO DAILY SUPPLEMENT (Reported) Cyanocobalamin (Vitamin B-12) (Vitamin B-12) 2,000 MCG TABLET 1 TAB PO DAILY SUPPLEMENT (Reported) Docusate Sodium (Colace) 100 MG CAPSULE 1 CAP PO BID PRN Constipation Fenofibrate 160 MG TABLET 1 TAB PO DAILY CHOLESTEROL (Reported) Furosemide (Lasix) 40 MG TABLET 1 TAB PO SI CHF For the next 1 week, please alternate taking 1 pill (40mg) and 2 pills (80mg) Gabapentin 600 MG TABLET 1 TAB PO TID NEUROPATHY (Reported) Insulin Aspart, Recombinant (Novolog Flexpen) 100 UNIT/1 ML INSULN.PEN 0 SC TIDAC/HS DIABETES BLOOD SUGAR BEFORE MEALS UNITS BEDTIME LESS THAN 80 INITIATE HYPOGLYCEMIA 80-150 16 UNITS 151-200 18 UNITS 201-250 20 UNITS 251-300 22 UNITS 4 UNITS 301-350 24 UNITS 6 UNITS 351-400 26 UNITS 8 UNITS 351-400 26 UNITS, CALL MD 10 UNITS, CALL Insulin Detemir (Levemir Flextouch) 100 UNIT/ML (3 ML) INSULN.PEN 30 UNITS SC BID DM (Reported) Levalbuterol HCl 1.25 MG/3 ML VIAL.NEB 1 INH PO Q4 BREATHING PROBLEMS ( Reported) Lisinopril (Prinivil) 5 MG TABLET 1 TAB PO DAILY HTN (Reported) Metformin HCl 850 MG TABLET 850 MG PO 0800,1700 diabetes Nicotine (Nicoderm Cq) 21 MG/24 HOUR PATCH.TD24 1 PAT TOP DAILY SMOKING ( Reported) Oxycodone HCl 10 MG TABLET 10 MG PO TID CHRONIC PAIN (Reported) Polyethylene Glycol 3350 (Miralax) 119 GM POWDER 17 GM PO AT BEDTIME PRN CONSTIPATION Potassium Chloride 10 MEQ CAPSULE.ER 1 CAP PO DAILY SUPPLEMENT (Reported) Warfarin Sodium (Coumadin) 10 MG TABLET 1 TAB PO SuMoTuThFrSa BLOOD THINNER ( Reported) Triage Note: PT SENT IN BY DR. GARSIA FOR ADMIT TO HIS SERVICE. FOR INCREASED SOB AND SORES TO BILAT LOWER EXT. THAT ARE WEEPING. Triage Nurses Notes Reviewed? yes HPI: Patient presents for evaluation of worsening leg pain or leg swelling along with back pain and leg pain status post fall 3 days ago. Patient states he was evaluated by Dr. Garsia today and was told to go to the hospital for evaluation. In addition to the above he states he has had a cough with a green phlegm production but no associated chest pain or fever or other cold symptoms. He states he fell about 3 days ago while getting out of bed to use the bathroom in the middle of the night. Since then he had an abrupt onset of back pain that has been severe constant and worse with movement. Nothing seems to make him feel better. Past History Travel History Traveled to [place] past 21 day No Medical History Any Pertinent Medical History? 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 History of MRSA: No History of VRE: No History of CDIFF: No Influenza Vaccine: 10/14/16 Surgical History Surgical History: cholecystectomy, knee replacement (left knee), status post aborted maze procedure b/l LE venous sclerotherapy Psychosocial History Who do you live with Family Services at Home Oxygen What is your primary language Divehi Tobacco Use: Quit >30 days ago ETOH Use: denies use Illicit Drug Use: denies illicit drug use Family History Family History, If Any: FATHER FH: heart attack FH: HTN (hypertension) MOTHER FH: heart attack FH: HTN (hypertension) FHx: stroke SISTER FH: breast cancer FH: CHF (congestive heart failure) Hx Contributory? No Review of Systems Review of Systems Constitutional: Reports: no symptoms. EENTM: Reports: no symptoms. Respiratory: Reports: no symptoms. Cardiovascular: Reports: no symptoms. GI: Reports: no symptoms. Genitourinary: Reports: no symptoms. Musculoskeletal: Reports: no symptoms. Skin: Reports: see HPI. Neurological/Psychological: Reports: no symptoms. Hematologic/Endocrine: Reports: no symptoms. Immunologic/Allergic: Reports: no symptoms. All Other Systems: Reviewed and Negative Physical Exam Physical Exam General Appearance: SEE BELOW Comments: Gen.: Well-nourished, well-developed, no acute respiratory distress. Conversant on 2 L nasal cannula (chronic). Overweight. Head: Normocephalic, atraumatic. Eyes: Normal inspection bilaterally Ears: Normal inspection bilaterally Nose: Normal inspection Throat/mouth : Moist mucosa Neck: Supple, full range of motion, no goiter Heart: Regular rate and rhythm, no murmurs rubs or gallops Lungs: Diminished breath sounds bilaterally with no wheezes rales or rhonchi Chest: Nontender Back: Normal range of motion Abdomen: Soft, nontender, nondistended, normal bowel sounds Extremities: Normal range of motion grossly, equal radial pulses, no cyanosis, bilateral lower extremity 2+ pitting edema with chronic skin changes and weeping. Linear abrasions of varying ages of upper and lower extremities. Neurologic: Cranial nerves grossly intact, speech is clear Skin: warm and dry Psychiatric: Calm, cooperative, no apparent delusions or hallucinations Core Measures ACS in differential dx? No CVA/TIA Diagnosis: No Severe Sepsis Present: No Septic Shock Present: No Progress Differential Diagnoses I considered the following diagnoses in my evaluation of the patient: cellulitis ,chf,acs/mi,electrolyte abn,anemia Plan of Care: Orders Procedure Date/time Status PHOSPHORUS 03/26 0600 Active MAGNESIUM 03/26 06 Active CBC WITHOUT DIFFERENTIAL 03/26 06 Active BASIC ELECTROLYTES PLUS BUN&CR 03/26 06 Active LOWER RESPIRATORY CULTURE 03/25 0829 Active THYROID STIMULATING HORMONE 03/25 06 Complete FREE T4 03/25 06 Complete Lab Add-on Test 03/25 UNK Active OXYGEN SETUP CHG 03/24 UNK Complete AEROSOL CHG 03/24 UNK Complete OXYGEN 03/24 UNK Complete OXYGEN TRANSPORT 03/24 UNK Complete Current Medications Sig/Ann-Marie Start time Last Medication Dose Stop Time Status Admin Acetaminophen 650 MG Q12P PRN 03/25 1013 AC (Tylenol) Cholecalciferol 1,000 IU DAILY 03/25 1000 AC 03/25 (Vitamin D) 1002 Cyanocobalamin 1,000 MCG DAILY 03/25 1000 AC 03/25 (Vitamin B12) 1002 Fenofibrate 145 MG DAILY 03/25 1000 AC 03/25 (Tricor) 1002 Magnesium Chloride 64 MG BID 03/25 1000 AC 03/25 (Slow-Mag) 2154 Potassium Chloride 10 MEQ DAILY 03/25 1000 AC 03/25 (K-Dur) 1002 Hydromorphone HCl 1 MG Q6P PRN 03/25 0830 AC (Dilaudid) Ipratropium [place] 2.5 ML EVERY 4 HRS/AWAKE 03/25 0800 AC 03/25 (Atrovent) 2020 Hydromorphone HCl 2 MG Q6P PRN 03/25 0045 AC 03/26 (Dilaudid) 0500 Budesonide/ 2 PUF BID 03/24 2200 AC 03/25 Formoterol Fumarate 2154 (Symbicort) Insulin Detemir 30 UNITS BID 03/24 2200 AC 03/25 (Levemir) 2154 Atorvastatin Calcium 40 MG 1700 03/24 1700 AC 03/25 (Lipitor) 1715 Insulin Aspart 0 TIDAC/HS 03/24 1700 AC 03/25 (NovoLOG) 1715 Furosemide 40 MG 7:30 AM, & 4:30 PM 03/24 1630 AC 03/26 (Lasix) 0529 Docusate Sodium 100 MG BID PRN 03/24 1530 AC 03/25 (Colace) 1000 Naloxone HCl 0.4 MG Q 5 MINUTES X 3 DO.. 03/24 1530 AC (Narcan) Guaifenesin 600 MG Q12 03/24 1525 AC 03/25 (Mucinex) 2153 Methylprednisolone 40 MG DAILY 03/24 1515 AC 03/25 (Solumedrol) 1001 Polyethylene Glycol 17 GM AT BEDTIME PRN 03/24 1515 AC (Miralax) Lisinopril 5 MG DAILY 03/24 1508 AC 03/25 (Prinivil) 1002 Nicotine 21 MG DAILY 03/24 1508 AC 03/25 (Nicoderm) 1000 Gabapentin 600 MG Q8 03/24 1507 AC 03/26 (Neurontin) 0500 Carvedilol 25 MG BID 03/24 1501 AC 03/25 (Coreg) 2201 Amiodarone HCl 200 MG DAILY 03/24 1459 AC 03/25 (Cordarone) 1001 Aspirin Buffered 81 MG DAILY 03/24 1459 AC 03/25 (Ecotrin) 1002 Laboratory Tests 03/26/17 0620: Sodium Pending, Potassium Pending, Chloride Pending, Carbon Dioxide Pending, Anion Gap Pending, BUN Pending, Creatinine Pending, BUN/Creatinine Ratio Pending , Phosphorus Pending, Magnesium Pending, CBC w Diff Pending, WBC Pending, RBC Pending, Hgb Pending, Hct Pending, MCV Pending, MCH Pending, RDW Pending, Plt Count Pending, MPV Pending, PUBS MCHC Pending Microbiology 03/25 829 LOWER RESP: Respiratory Culture - COLB 03/25 829 LOWER RESP: Gram Stain - COLB Diagnostic Imaging: Discussed w/RAD: Radiology Read. CXR Impression: PATIENT: LYNETTE SMITH PRESENT AGE: 61 PATIENT ACCOUNT NO: [id number] : 55 LOCATION: [facility] ORDERING PHYSICIAN: IRIS POWERS MD SERVICE DATE: 03/24/17111 EXAM TYPE: RAD - XRY-PORTABLE CHEST XRAY EXAMINATION: XR PORTABLE CHEST CLINICAL INFORMATION: Cough and phlegm production. Evaluate for pneumonia. COMPARISON: CXR from 2016 TECHNIQUE: Portable AP view of the chest was obtained. FINDINGS: Patient has a large body habitus and there is chronic prominence of the mediastinal fat and paracardiac fat pads. Lung bases are suboptimally evaluated due to the patient body habitus. There is suggestion of chronic, mild atelectasis in lung bases without convincing acute consolidation. No pulmonary edema or pleural effusion. Cardiac silhouette is borderline enlarged. Thoracic aorta is calcified. Bones are unremarkable. IMPRESSION: No acute cardiopulmonary findings compared to 01/13/2017. No overt pneumonia. DICTATED BY: LEANDRO COSBY MD DATE /TIME DICTATED:03/24/171205 [place] OPERATOR:SONDRA DATE/TIME TRANSCRIBED: 03/24/171205 CONFIDENTIAL, DO NOT COPY WITHOUT APPROPRIATE AUTHORIZATION. < Electronically signed in Other Vendor System> SIGNED BY: LEANDRO COSBY MD 03/24/17 1212 Initial ED EKG: rate (75), AFIB, LAFB Prior EKG: unchanged Rhythm Strip: atrial fibrillation Comments: 03/24/2017 1:24:58 PM I've discussed Lynette's case with Dr. Garsia including the elevated troponin. Patient to be admitted to telemetry for diuresis, wound care and pulmonary consultation. Departure Departure Disposition: STILL A PATIENT Condition: Stable Clinical Impression Primary Impression: Right-sided heart failure Secondary Impressions: Chronic wound of extremity, Elevated troponin, Peripheral edema, Stasis dermatitis of both legs Referrals: Mike GARSIA MD (PCP/Family) Departure Forms: Customer Survey General Discharge Information Admission Note Spoke With: Mike GARSIA MD Documentation of Exam: Documentation of any treatments & extenuating circumstances including Concerns Regarding Discharge (functional status, medication knowledge or non-compliance, living conditions, etc.) that warrant an admission rather than observation: Patient has an elevated troponin in the presence of clinical right-sided heart failure. This places him at high risk of acute myocardial infarction, dysrhythmias, chest pain and cardiac arrest. In addition the patient has severe bilateral lower extremity peripheral edema with stasis dermatitis and chronic wounds that have begun weeping. This places the patient at risk of cellulitis and sepsis. Given this I do not feel he is a good candidate for outpatient management under the circumstances. I feel he would have great difficulty in compliance with outpatient treatment and appliance could worsen his cardio respiratory condition. I feel he requires hospitalization for continuous cardiac monitoring for the possibility of dysrhythmia, serial troponin determinations to assess for a trend in the troponin and its implications for a subendocardial myocardial infarction or angina/acute coronary syndrome. This patient should also be aggressively diuresed and have wound care evaluation for his chronic lower extremity wounds. Physical therapy consultation should be considered given the patient's pronounced lower extremity edema. I feel the patient will require a multiple day hospitalization. Critical Care Note Critical Care Note Critical Care Time: non-applicable
--- NOTE | 2017-03-24 11:44 | NUR ---
IV EST #20 RH AND LABS SENT TO LAB
[2017-03-24 11:56] LABS: ABSOLUTE BASOPHIL COUNT 0 /CUMM (0.0-0.2); ABSOLUTE EOSINOPHIL COUNT 1.2 /CUMM (0.0-0.7); ABSOLUTE GRANULOCYTE CT 4.7 /CUMM (1.4-6.5); ABSOLUTE LYMPH COUNT 1.1 /CUMM (1.2-3.4); ABSOLUTE MONOCYTE COUNT 0.4 /CUMM (0.10-0.60); BASOPHIL % 0.4 % (0.0-2.0); EOSINOPHIL % 15.9 % (0-5); GRANULOCYTE % 63.6 % (42.2-75.2); HEMATOCRIT 41.5 % (42-52); MEAN CORPUSCULAR HGB 27.8 PG (27.0-31.0); MEAN CORPUSCULAR HGB CONC 33.1 G/DL (33.0-37.0); MEAN CORPUSCULAR VOLUME 83.9 FL (80.0-94.0); MEAN PLATELET VOLUME 8.1 FL (7.4-10.4); PLATELET COUNT 264 /CUMM (130-400); RBC DISTRIBUTION WIDTH 16.3 % (11.5-14.5); RED BLOOD CELL CT 4.95 /CUMM (4.70-6.10); WHITE BLOOD CELL COUNT 7.3 /CUMM (4.8-10.8)
--- NOTE | 2017-03-24 12:12 | RADIOLOGY REPORT ---
EXAMINATION: XR PORTABLE CHEST CLINICAL INFORMATION: Cough and phlegm production. Evaluate for pneumonia. COMPARISON: CXR from 01/13/2017 TECHNIQUE: Portable AP view of the chest was obtained. FINDINGS: Patient has a large body habitus and there is chronic prominence of the mediastinal fat and paracardiac fat pads. Lung bases are suboptimally evaluated due to the patient body habitus. There is suggestion of chronic, mild atelectasis in lung bases without convincing acute consolidation. No pulmonary edema or pleural effusion. Cardiac silhouette is borderline enlarged. Thoracic aorta is calcified. Bones are unremarkable. IMPRESSION: No acute cardiopulmonary findings compared to 01/13/2017. No overt pneumonia.
--- NOTE | 2017-03-24 12:16 | NUR ---
PT MEDICATED PER EMAR WITH DILAUDID
--- NOTE | 2017-03-24 13:17 | NUR ---
DRESSINGS CHANGED ON BLE
--- NOTE | 2017-03-24 13:56 | History & Physical ---
KATELYNN VILLASENOR,NGHIA 03/24/17 4296: General Information and HPI MD Statement: I have seen and personally examined LYNETTE SMITH and documented this H&P. The patient is a 61 year old M who was refered from Dr Javy Garsia's clinic today with complaints of fall injury and worsening cough while on antibiotics. Source of Information: patient Exam Limitations: no limitations History of Present Illness: 61 [id number] with past medical history of congestive heart failure (EF 55-60% , Dec 2015), CAD/VT with stent placement in 2003, COPD baseline with oxygenOSA ( 1.5L/min at daytime, 2L/min during night), non-compliance with BiPAP, atrial fibrillation on Coumadin, HTN, chronic venous insuffeicency with bruises over his b/l legs, diabetes mellitus taking insulin, degenerative joint disease, was refered from Dr Garsia's clinic today after visting him for a fall injury and persistent cough despite on oral antibiotics. According to the patient, he was in his usual state of health after being discharged in mid December from [facility], when he started having productive cough with thick green sputum, associated with wheezes, fever and chills, without worsening of shortness of breath, without chest pain, for which he was followed up with Dr. 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 Garsia (technician automated equipment). At 3:45 AM three days ago, he sustained a mechanical fall injury in his home, got help from his stepson to be replaced in his chair which took 30 minutes, and he denies any loss of consciousness, confusion, dizziness, palpitation, chest pain, nausea, vomiting before or after the event. He followed up at Dr. Garsia 's clinic and notified him about the event, who referred the patient to emergency department for further evaluation and management. At the time of interview, he has multiple scratches and one over both his legs and his right arm and left elbow. Of note, he lives in his home with his , uses walker to walk around but does use cane sometimes as well. He says he is more stable while using his walker. Allergies/Medications Allergies: Coded Allergies: NO KNOWN ALLERGIES (08/21/16) Home Med list Amiodarone HCl 200 MG TABLET 1 TAB PO DAILY AFIB (Reported) Aspirin (Ecotrin*) 81 MG TABLET.DR 1 TAB PO DAILY HEART/BLOOD (Reported) Atorvastatin Calcium 40 MG TABLET 1 TAB PO DAILY CHOLESTEROL (Reported) Budesonide/Formoterol Fumarate (Symbicort 160-4.5 Mcg Inhaler) 10.2 GM HFA.AER.AD 2 PUF INH BID COPD Carvedilol 25 MG TABLET 1 TAB PO BID HEART (Reported) Cholecalciferol (Vitamin D3) (Vitamin D) 2,000 UNIT TABLET 1 TAB PO DAILY SUPPLEMENT (Reported) Cyanocobalamin (Vitamin B-12) (Vitamin B-12) 2,000 MCG TABLET 1 TAB PO DAILY SUPPLEMENT (Reported) Docusate Sodium (Colace) 100 MG CAPSULE 1 CAP PO BID PRN Constipation Fenofibrate 160 MG TABLET 1 TAB PO DAILY CHOLESTEROL (Reported) Furosemide (Lasix) 40 MG TABLET 1 TAB PO SI CHF For the next 1 week, please alternate taking 1 pill (40mg) and 2 pills (80mg) Gabapentin 600 MG TABLET 1 TAB PO TID NEUROPATHY (Reported) Insulin Aspart, Recombinant (Novolog Flexpen) 100 UNIT/1 ML INSULN.PEN 0 SC TIDAC/HS DIABETES BLOOD SUGAR BEFORE MEALS UNITS BEDTIME LESS THAN 80 INITIATE HYPOGLYCEMIA 80-150 16 UNITS 151-200 18 UNITS 201-250 20 UNITS 251-300 22 UNITS 4 UNITS 301-350 24 UNITS 6 UNITS 351-400 26 UNITS 8 UNITS 351-400 26 UNITS, CALL MD 10 UNITS, CALL Insulin Detemir (Levemir Flextouch) 100 UNIT/ML (3 ML) INSULN.PEN 30 UNITS SC BID DM (Reported) Levalbuterol HCl 1.25 MG/3 ML VIAL.NEB 1 INH PO Q4 BREATHING PROBLEMS ( Reported) Lisinopril (Prinivil) 5 MG TABLET 1 TAB PO DAILY HTN (Reported) Metformin HCl 850 MG TABLET 850 MG PO 0800,1700 diabetes Nicotine (Nicoderm Cq) 21 MG/24 HOUR PATCH.TD24 1 PAT TOP DAILY SMOKING ( Reported) Oxycodone HCl 10 MG TABLET 10 MG PO TID CHRONIC PAIN (Reported) Polyethylene Glycol 3350 (Miralax) 119 GM POWDER 17 GM PO AT BEDTIME PRN CONSTIPATION Potassium Chloride 10 MEQ CAPSULE.ER 1 CAP PO DAILY SUPPLEMENT (Reported) Warfarin Sodium (Coumadin) 10 MG TABLET 1 TAB PO SuMoTuThFrSa BLOOD THINNER ( Reported) Past History Travel History Traveled to [place] past 21 day No Medical History Neurological: NONE EENT: NONE Cardiovascular: AFIB, CAD, chronic venous insuff, hypertension, hyperlipidemia, myocardial infarction, STENT 2003 Respiratory: bronchitis, COPD, emphysema, obstructive sleep apnea, 02 1.5 L Gastrointestinal: NONE Hepatic: NONE Renal: NONE Musculoskeletal: degen joint disease Psychiatric: NONE Endocrine: diabetes Blood Disorders: DVT LLE Cancer(s): NONE 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 Home Who Do You Live With? spouse Services at Home: Oxygen Primary Language: Maori Smoking Status: Former Smoker ETOH Use: denies use Illicit Drug Use: denies illicit drug use Living Will? no Power of Ict Support And Test Engineers/HCP? no Functional Ability ADLs Independent: dressing, eating, toileting, bathing. Ambulation: walker (also uses cane sometimes) IADLs Independent: shopping, housework, finances, food prep, telephone, transportation , medication admin. Review of Systems Review of Systems Constitutional: Reports: see HPI, chills, fever. Denies: diaphoresis, malaise, weakness, unexplained weight loss. EENTM: Reports: no symptoms. Cardiovascular: Reports: see HPI, edema, orthopena, peripheral edema. Denies: chest pain, palpitations, syncope. Respiratory: Reports: see HPI, cough, orthopnea, short of breath, sputum production, wheezing. Denies: hemoptysis. GI: Reports: no symptoms. Genitourinary: Reports: no symptoms. Musculoskeletal: Reports: see HPI. Skin: Reports: see HPI, erythema (b/l legs). Neurological/Psychological: Reports: see HPI. Hematologic/Endocrine: Reports: no symptoms. All Other Systems: Reviewed and Negative Exam & Diagnostic Data Last 24 Hrs of Vital Signs/I&O Vital Signs Date Time Temp Pulse Resp B/P B/P Pulse O2 O2 Flow FiO2 Mean Ox Delivery Rate 03/24 1411 Room Air 03/24 1205 98.2 84 20 150/84 96 Room Air 03/24 0959 97.0 83 20 159/87 95 Room Air Intake & Output 03/24 1600 03/24 0800 03/24 0000 Intake Total Output Total Balance Patient 142.882 kg Weight Weight Reported by Patient Measurement Method Physical Exam General Appearance Alert, Oriented X3, Cooperative, No Acute Distress, morbidly obese man, sitting at the side of bed, has additional oxygen with nasal canula Body Front and Back (Adult) 1) wound 1 2) wound 2 3) wound 3 4) left lebow laceration 5) Last 24 Hrs of Labs/[place]: Laboratory Tests 03/24/17 1142: Anion Gap 9, Estimated GFR > 60, BUN/Creatinine Ratio 28.2 H, Glucose 129 H, Calcium 9.3, Magnesium 1.3 L, Creatine Kinase 354 H, Troponin I 0.40 *H, Pro-B -Natriuretic Pept 1230 H, PT > 103.0 *H, INR > 10.0 *H, APTT 79 H, CBC w Diff MAN DIFF ORDERED, RBC 4.95, MCV 83.9, MCH 27.8, RDW 16.3 H, MPV 8.1, Gran % 63.6, Lymphocytes % 15.1 L, Monocytes % 5.0, Eosinophils % 15.9 H, Basophils % 0.4, Absolute Granulocytes 4.7, Absolute Lymphocytes 1.1 L, Absolute Monocytes 0.4, Absolute Eosinophils 1.2, Absolute Basophils 0, Platelet Estimate VERIFIED BY SMEAR, Anisocytosis 1+, PUBS MCHC 33.1 Diagnostic Data EKG Results Atrial fibrillation, heart rate 75, QTc 429, QRS 96. CXR Results No overt pneumonia, no acute changes compared to 01/13/2017. Other Results Physical exam: Head: Normocephalic, atraumatic Eyes: Pupils normal in size, regular, reacting to light and accommodation, EOM normal Ears: B/l normal on inspection Nose: Normal on inspection Throat/mouth: Moist mucosa Neck: Supple, full range of motion, no thyromegaly Heart: Regular rate, irregular rhythm Lung: Vesicular breath sound bilaterally with wheezes b/l and few crackles over the base b/l Abd: Soft, non-tender, no distention appreciated Back: Normal range of motion Extremities: B/l edema++, right leg has multiple wound with bandage over it, left leg has three wound anteriorly as depicted in the image above, left elbow has a scratch as well, and right forearm has a scratch over his lateral aspect about 15cm in length Neurologic: Alert, oriented x3, Cranial exam grossly intact, Speech is clear and coherent Skin: Warm and dry, except noted above Psychiatric: Calm, cooperative, coherant Assessment/Plan Assessment: 61 [id number] with past medical history of congestive heart failure (EF 55-60% , Dec 2015), CAD/VT with stent placement in 2003, COPD baseline with oxygen, TOMASZ (1.5L/min at daytime, 2L/min during night), non-compliance with BiPAP, atrial fibrillation on Coumadin, HTN, chronic venous insuffeicency with bruises over his b/l legs, diabetes mellitus taking insulin, degenerative joint disease, was refered from Dr Garsia's clinic today after visting him for a mechanical fall injury and persistent cough despite on oral antibiotics. He is currently being managed in the telemetry floor for the following issues: #Acute on chronic diastolic congestive heart failure, HFpEF #Elevated troponin Patient's symptoms, signs of bilateral leg edema with shortness of breath, fluid overload, increased oxygen requirement, BNP of 1230, is suggestive of congestive heart failure. Of note, his troponin is 0.40 which is high, and needs further trending/evaluation. Elevated levels of troponin is likely due to type II VT ( demand ischemia). -Admit the patient in telemetry unit -Monitor vitals closely, watch for arrhythmia, change in vital status -Trend/follow troponin and EKG every 6 hours until ACS ruled out -Continue diuresis -Strict input output measurements, daily weight measurements #Possible Pneumonia Patient has symptoms of cough with productive green sputum, fever, chills, respiratory distress, which is suggestive of pneumonia. Of note, he has been on antibiotics for more than 2 weeks prior to admission, but was still having symptoms as such so cultures have been sent and is being was off antibiotics for now. #Atrial fibrillation on Coumadin, currently supratherapeutic Patient has history of atrial fibrillation, currently rate controlled, takes warfarin at home and his INR is above 10 currently. So he will not require dosing of Coumadin for today, instead will be given vitamin K because of his supratherapeutic INR today. We'll monitor INR and dose Coumadin accordingly daily. #Wound Regular wound care, and a wound care consultation in the morning with Dr. Zhu #COPD -Total respiratory care/nebulizations -Continue Symbicort -Mucinex added twice a day -Maintain SPO2 above 92%, currently receiving oxygen via nasal cannula -Follow-up sputum/blood culture -Patient is reluctant to any of IV Solu-Medrol considering his blood sugar levels, but has agreed to start with low-dose IV Solu-Medrol today -Of note, he is noncompliant with BiPAP, reports that his university librarian has been informed -Pulmonary consultation in the morning requested #Fall injury, likely mechanical -Maintain fall precautions -Physical therapy evaluation in the morning -Check CPK in the morning #Diabetes Mellitus -Patient to be placed on diabetic/CHF type, with regular blood sugar monitoring, and on insulin coverage #Hypomagnesemia -Repleted for now. Will monitor #Diet: Diabetic/CHF diet #DVT ppx: Currently supratherapeutic INR, while on Coumadin #Pain management: CTPMP checked, he has 3 prescribers, 1 pharmacy according to CTP. Last prescription written was on 02/12/[address] him on his chronic/home pain meds. #Code status: DNR/DNI As Ranked By This Provider Problem List: 1. Acute exacerbation of CHF (congestive heart failure) 2. Elevated troponin 3. Pneumonia 4. Atrial fibrillation 5. Supratherapeutic INR 6. COPD (chronic obstructive pulmonary disease) 7. Obstructive sleep apnea 8. Peripheral edema 9. Fall 10. Diabetes mellitus 11. HTN (hypertension) 12. HLD (hyperlipidemia) Core Measures/Miscellaneous Acute Coronary Syndrome ACS Diagnosis: No Cerebrovascular Accident CVA/TIA Diagnosis: No Congestive Heart Failure CHF Diagnosis: Yes Venous Thromboembolism VTE Risk Factors: Age > 40, Obesity, Smoking, Varicose veins [facility] prophylaxis d/t: No contraindications No VTE Pharm Prophylaxis d/t: No contraindications VTE Diagnosis: No VTE Type: NONE VTE Confirmed by (Test): NONE Severe Sepsis Severe Sepsis Present: No Septic Shock Septic Shock Present: No Miscellaneous Documentation Attending Case Discussed With: Mike GARSIA MD Primary Care Physician: Mike GARSIA MD Patient sees these Specialists Cardiology Pulmonology Level of Patient Care: Telemetry YONI REDDY 03/24/17 1611: Resident Review Statement Resident Statement: examined this patient, discussed with internal medicine physician assistant, agreed with internal medicine physician assistant, reviewed images, amended to note Other Findings: 61-year-old man with past medical history of CHF, CAD VT stent 2003, COPD with TOMASZ 1.5 oyxgen at daytime and 2 L at night, A. fib on Coumadin hypertension, chronic venous stasis, non compliant for BIPAP, diabetes on insulin was sent from Dr. Garsia office for chief complaint of fall. Patient reported about 3 days ago he fell( due to knee weakness) and had multiple abrasions on his both legs with severe leg pain. Patient is a stationary most of the time and does not walk that much. He reports having increased swelling of his legs for couple of weeks it SOB on exertion. He also reports intermittent cough with green phlegm with one episode of fever about 3 days ago. He denies any chest pain, dizziness, sick contacts. He has been on Augmentin for 21 days, on prednisone taper for 14 days. FOr leg pain and increased swelling of the legs (with weeping) he was sent by Dr. Garsia to ED for admission. Vital signs on admission were stable(details above) Skin notable aberration and lesions on both legs which wrapped up HEENT Atraumatic, PERRLA, EOMI Cardiovascular irriegular Rate, Normal S1, Normal S2 Lungs decreased breath sounds bilaterally with expiratory wheezing Abdomen Normal Bowel Sounds, Soft, distended Extremities 2+ edema up to knees Notable labs showed troponin of 0.43, INR more than 10, hg 13.7 mag 1.3, BNP 1230 CXR IMPRESSION: No acute cardiopulmonary findings compared to 01/13/2017. No overt pneumonia. Assessment and plan #CHF exacerbation/ positive trops -Admit to telemetry for 24 hours monitoring, trend troponin and EKG, patient is already on warfarin,Continue aspirin, -IV Lasix 40 mg twice a day- Daily weights,strict I's and O's and CHF diet #Venous Stasis/increased leg swelling -No antibiotics for now -Blood cultures 2 -Watch for fevers -Wound consult with Dr. Dunham tomorrow #COPD/COUGH -Patient does not want high dose of steroids due to fear of elevated blood sugars .we will start the patient on Solu-Medrol 40 IV daily - pulmonology consult in the morning -Mucinex twice a day -TRC -Noncompliant with BiPAP -Continue Symbicort #elevated INR/afib -Sub-cutaneous K 5 milligrams - watch for any active bleeding -Check INR in the morning -Continue amiodarone -Continue Coreg #chronic pain -Tylenol for mild, oxycodone for moderate, IV Dilaudid for severe pain -Narcan at bed side #DM/ low mag/ HNT/ HLP -Continue Levemir and high-dose sliding scale insulin per patient -Check sugars 4 times a day -Diabetic diet with sodium restriction -replete mag -Continue lisinopril, continue statin #Fall -PT eval in the mornig per Cardiology rec -Check CPK in the morning DNR/DNI, DVT to prophylaxis is just elevated INR , diabetic diet
--- NOTE | 2017-03-24 14:11 | NUR ---
PT MEDICATED PER EMAR WITH LASIX AND DILAUDID PER EMAR
--- NOTE | 2017-03-24 14:11 | NUR ---
HOUSE STAFF AT BEDSIDE
--- NOTE | 2017-03-24 14:19 | NUR ---
CRITICAL TEST RESULTS [id number] LYNETTE SMITH 61 M TESTS AND RESULTS: TROP 0.04 Results received and read back by: GIACOMO CHOW Results received date and time: 03/24/17 1419 The following provider was notified of the results, and read the results back: PRIYA Notified date and time: 03/24/17 at
[2017-03-24] MEDS ORDERED: NICODERM CQ1 EAC2 TOP (14:25)
--- NOTE | 2017-03-24 14:37 | NUR ---
REPORT GIVEN TO DARNELL AND PLEASE DO NOT SEND PT TO ROOM UNTIL 1530.
[2017-03-24 14:43] LABS: PTT 79 SEC (25-37)
[2017-03-24 14:49] LABS: PT > 103.0 SEC (9.4-12.5)
--- NOTE | 2017-03-24 14:59 | NUR ---
CRITICAL TEST RESULTS [id number] LYNETTE SMITH 61 M TESTS AND RESULTS: INR >10.0 PT >103 Results received and read back by: GIACOMO CHOW Results received date and time: 03/24/17 1500 The following provider was notified of the results, and read the results back: MAUREEN Notified date and time: 03/24/17 at 1500
--- NOTE | 2017-03-24 15:27 | NUR ---
ASSUMED CARE OF PT. PT GIVEN VITAMIN K AND SOLUMEDROL. PT AMBULATING AROUND ROOM INDEPENDENTLY
--- NOTE | 2017-03-24 15:42 | NUR ---
REPORT CALLED TO CHARGE NURSE NICHOLAS
[2017-03-24 16:16] VITALS: BP 136/80
[2017-03-24 22:00] VITALS: BP 100/60
[2017-03-25 08:03] LABS: ABSOLUTE BASOPHIL COUNT 0 /CUMM (0.0-0.2); ABSOLUTE EOSINOPHIL COUNT 0.1 /CUMM (0.0-0.7); ABSOLUTE GRANULOCYTE CT 7.7 /CUMM (1.4-6.5); ABSOLUTE LYMPH COUNT 0.8 /CUMM (1.2-3.4); ABSOLUTE MONOCYTE COUNT 0.4 /CUMM (0.10-0.60); BASOPHIL % 0.1 % (0.0-2.0); EOSINOPHIL % 0.8 % (0-5); GRANULOCYTE % 85.1 % (42.2-75.2); HEMATOCRIT 39.5 % (42-52); MEAN CORPUSCULAR HGB 27.5 PG (27.0-31.0); MEAN CORPUSCULAR HGB CONC 32.9 G/DL (33.0-37.0); MEAN CORPUSCULAR VOLUME 83.8 FL (80.0-94.0); MEAN PLATELET VOLUME 8.4 FL (7.4-10.4); PLATELET COUNT 304 /CUMM (130-400); RBC DISTRIBUTION WIDTH 15.9 % (11.5-14.5); RED BLOOD CELL CT 4.71 /CUMM (4.70-6.10)
[2017-03-25 08:48] VITALS: BP 134/80
--- NOTE | 2017-03-25 08:50 | Cons- Cardiology ---
General Information and HPI Consulting Request Date of Consult: 03/25/17 Requested By: Mike GARSIA MD Reason for Consult: FAll, Lower extemity swelling, shortness of breath and productive cough Source of Information: patient Exam Limitations: no limitations History of Present Illness: Mr Johnson is a 61 y/o gentleman with a PMH of TOMASZ baseline home oxygen 1.5 L and nocturnal 2L, emphysema, pulmonary HTN, obesity, previous tobacco use, CAD s /p stent placement 2003, Atrial fib (on amiodarone and coumadin), 3 prior unscuccessful cardioversion attempts, HLD, type II DM complicated w/ neuropathy, LE stasis dermatitis who is admitted after complaints of progressive lower extremity swelling, intermittent productive cough with yellow sputum and fall yesterday night with inability to get up for approximately 1 hr . Most recent admission in Dec 2016 for COPD exacerbation discharge home on an extended prednisone taper. Reported persistent wheezing and productive cough and was started on a course of Augmentin. He reports significant lower extremity swelling with redness and intermittent fevers and chills over the past few days. He did suffer superficial bruises over the knees and elbows after the fall. He denies any chest pain, palpitations, nausea associated with this. VS on admission: BP 159/87, HR 83, RR 20, SPO2 95% on RA, T 97.0 Pertinent labs on admission: WBC 7.3, H&H 13.7/4.5, sodium 139, potassium 4.6, bicarbonate 30, BUN/CR 31/1.1 EKG: A. fib, HR 75, QTC 429 CXR: Ammonia, no acute pulmonary changes compared to 01/13/17 Latest echocardiogram (01/15/2017): LVEF 55-60%, mild to moderate aortic sclerosis, mitral leaflet thickening, small pericardial effusion, mild enlargement of right heart chambers, unable to calculate RVSP Allergies/Medications Allergies: Coded Allergies: NO KNOWN ALLERGIES (08/21/16) Home Med List: Amiodarone HCl 200 MG TABLET 1 TAB PO DAILY AFIB (Reported) Aspirin (Ecotrin*) 81 MG TABLET.DR 1 TAB PO DAILY HEART/BLOOD (Reported) Atorvastatin Calcium 40 MG TABLET 1 TAB PO DAILY CHOLESTEROL (Reported) Budesonide/Formoterol Fumarate (Symbicort 160-4.5 Mcg Inhaler) 10.2 GM HFA.AER.AD 2 PUF INH BID COPD Carvedilol 25 MG TABLET 1 TAB PO BID HEART (Reported) Cholecalciferol (Vitamin D3) (Vitamin D) 2,000 UNIT TABLET 1 TAB PO DAILY SUPPLEMENT (Reported) Cyanocobalamin (Vitamin B-12) (Vitamin B-12) 2,000 MCG TABLET 1 TAB PO DAILY SUPPLEMENT (Reported) Docusate Sodium (Colace) 100 MG CAPSULE 1 CAP PO BID PRN Constipation Fenofibrate 160 MG TABLET 1 TAB PO DAILY CHOLESTEROL (Reported) Furosemide (Lasix) 40 MG TABLET 1 TAB PO SI CHF For the next 1 week, please alternate taking 1 pill (40mg) and 2 pills (80mg) Gabapentin 600 MG TABLET 1 TAB PO TID NEUROPATHY (Reported) Insulin Aspart, Recombinant (Novolog Flexpen) 100 UNIT/1 ML INSULN.PEN 0 SC TIDAC/HS DIABETES BLOOD SUGAR BEFORE MEALS UNITS BEDTIME LESS THAN 80 INITIATE HYPOGLYCEMIA 80-150 16 UNITS 151-200 18 UNITS 201-250 20 UNITS 251-300 22 UNITS 4 UNITS 301-350 24 UNITS 6 UNITS 351-400 26 UNITS 8 UNITS 351-400 26 UNITS, CALL MD 10 UNITS, CALL MD Insulin Detemir (Levemir Flextouch) 100 UNIT/ML (3 ML) INSULN.PEN 30 UNITS SC BID DM (Reported) Levalbuterol HCl 1.25 MG/3 ML VIAL.NEB 1 INH PO Q4 BREATHING PROBLEMS ( Reported) Lisinopril (Prinivil) 5 MG TABLET 1 TAB PO DAILY HTN (Reported) Metformin HCl 850 MG TABLET 850 MG PO 0800,1700 diabetes Nicotine (Nicoderm Cq) 21 MG/24 HOUR PATCH.TD24 1 PAT TOP DAILY SMOKING ( Reported) Oxycodone HCl 10 MG TABLET 10 MG PO TID CHRONIC PAIN (Reported) Polyethylene Glycol 3350 (Miralax) 119 GM POWDER 17 GM PO AT BEDTIME PRN CONSTIPATION Potassium Chloride 10 MEQ CAPSULE.ER 1 CAP PO DAILY SUPPLEMENT (Reported) Warfarin Sodium (Coumadin) 10 MG TABLET 1 TAB PO SuMoTuThFrSa BLOOD THINNER ( Reported) Review of Systems Review of Systems Constitutional: Reports: see HPI. EENTM: Reports: no symptoms. Cardiovascular: Reports: see HPI. Respiratory: Reports: see HPI. GI: Reports: no symptoms. Musculoskeletal: Reports: see HPI. Skin: Reports: see HPI. Past History Travel History Traveled to [place] past 21 day No Medical History Blood Transfusion Hx: No Neurological: NONE EENT: NONE Cardiovascular: AFIB, CAD, chronic venous insuff, hypertension, hyperlipidemia, myocardial infarction, STENT 2003 Respiratory: bronchitis, COPD, emphysema, obstructive sleep apnea, 02 1.5 L Gastrointestinal: NONE Hepatic: NONE Renal: NONE Musculoskeletal: degen joint disease Psychiatric: NONE Endocrine: diabetes Blood Disorders: DVT LLE Cancer(s): NONE CAPACITOR REPAIRER/Reproductive: NONE Surgical History Surgical History: cholecystectomy, knee replacement (left knee), status post aborted maze procedure b/l LE venous sclerotherapy Family History Relations & Conditions If Any: FATHER FH: heart attack FH: HTN (hypertension) MOTHER FH: heart attack FH: HTN (hypertension) FHx: stroke SISTER FH: breast cancer FH: CHF (congestive heart failure) Psychosocial History Where Do You Live? Home Who Do You Live With? spouse Services at Home: Oxygen Primary Language: [place] Smoking Status: Former Smoker ETOH Use: denies use Illicit Drug Use: denies illicit drug use Living Will? no Power of Style Advisor/HCP? no Functional Ability ADLs Independent: dressing, eating, toileting, bathing. Ambulation: walker (also uses cane sometimes) IADLs Independent: shopping, housework, finances, food prep, telephone, transportation , medication admin. ECHO Results (as available) Date of last Echo 01/15/17 EF% 55 Exam & Diagnostic Data Vital Signs and I&O Vital Signs Date Time Temp Pulse Resp B/P B/P Pulse O2 O2 Flow FiO2 Mean Ox Delivery Rate 03/25 0848 97.9 79 18 134/80 97 Nasal 1.5L Cannula 03/25 0752 95 Room Air Room Air 03/25 0000 95 Nasal 1.5L Cannula 03/24 2200 90 100/60 03/24 2200 98.3 90 20 100/60 95 Nasal 1.5L Cannula 03/24 2132 Nasal 1.5L Cannula 03/24 1803 97 136/80 03/24 1803 97 136/80 03/24 1803 97 136/80 03/24 1630 95 Nasal 1.5L Cannula 03/24 1616 98.9 97 20 136/80 94 Nasal 1.5L Cannula 03/24 1457 98.2 88 20 132/86 96 Room Air 03/24 1411 Room Air 03/24 1205 98.2 84 20 150/84 96 Room Air 03/24 0959 97.0 83 20 159/87 95 Room Air Intake & Output 03/25 0803/25 0000 03/24 1600 03/24 0803/24 0000 Intake Total 200 200 Output Total 600 650 200 Balance -400 -450 -200 Intake, Oral 200 200 Output, Urine 600 650 200 Patient 317 lb 320 lb 315 lb Weight Weight Chair scale Estimated Reported by Patient Measurement Method Physical Exam General Appearance: no apparent distress Head: normal appearance, Mild facial erythema on bilateral cheeks Eyes: Bilateral: EOMI. Respiratory: no respiratory distress, Expiratory wheeze present bilaterally Cardiovascular: edema, irregularly irregular Gastrointestinal: normal bowel sounds, soft, non-tender Extremities: 3+ pitting edema bilateral lower extremities tracing up towards the knees. Multiple chronic venous ulcers bilateral lower extremities covered and clean bandages at this time with no evidence of active weeping Labs/[facility] Results: Laboratory Tests 03/25 03/25 03/24 0625 0000 1700 Chemistry Sodium (137 - 145 mmol/L) 133 L Potassium (3.5 - 5.1 mmol/L) 5.1 Chloride (98 - 107 mmol/L) 93 L Carbon Dioxide (22 - 30 mmol/L) 27 Anion Gap (5 - 16) 12 BUN (9 - 20 mg/dL) 38 H Creatinine (0.7 - 1.2 mg/dL) 1.1 Estimated GFR (>60 ml/min) > 60 BUN/Creatinine Ratio (7 - 25 %) 34.5 H Magnesium (1.6 - 2.3 mg/dL) 1.6 Troponin I (<0.11 ng/ml) 0.23 *H 0.36 *H Coagulation PT (9.4 - 12.5 SEC) 58.0 *H INR (0.90 - 1.17) 5.62 *H Hematology CBC w Diff NO MAN DIFF REQ WBC (4.8 - 10.8 /CUMM) 9.0 RBC (4.70 - 6.10 /CUMM) 4.71 Hgb (14.0 - 18.0 G/DL) 13.0 L Hct (42 - 52 %) 39.5 L MCV (80.0 - 94.0 FL) 83.8 MCH (27.0 - 31.0 PG) 27.5 RDW (11.5 - 14.5 %) 15.9 H Plt Count (130 - 400 /CUMM) 304 MPV (7.4 - 10.4 FL) 8.4 Gran % (42.2 - 75.2 %) 85.1 H Lymphocytes % (20.5 - 51.1 %) 9.1 L Monocytes % (1.7 - 9.3 %) 4.9 Eosinophils % (0 - 5 %) 0.8 Basophils % (0.0 - 2.0 %) 0.1 Absolute Granulocytes (1.4 - 6.5 /CUMM) 7.7 H Absolute Lymphocytes (1.2 - 3.4 /CUMM) 0.8 L Absolute Monocytes (0.10 - 0.60 /CUMM) 0.4 Absolute Eosinophils (0.0 - 0.7 /CUMM) 0.1 Absolute Basophils (0.0 - 0.2 /CUMM) 0 PUBS MCHC (33.0 - 37.0 G/DL) 32.9 L 03/24 1142 Chemistry Sodium (137 - 145 mmol/L) 139 Potassium (3.5 - 5.1 mmol/L) 4.6 Chloride (98 - 107 mmol/L) 100 Carbon Dioxide (22 - 30 mmol/L) 30 Anion Gap (5 - 16) 9 BUN (9 - 20 mg/dL) 31 H Creatinine (0.7 - 1.2 mg/dL) 1.1 Estimated GFR (>60 ml/min) > 60 BUN/Creatinine Ratio (7 - 25 %) 28.2 H Glucose (65 - 99 mg/dL) 129 H Calcium (8.4 - 10.2 mg/dL) 9.3 Magnesium (1.6 - 2.3 mg/dL) 1.3 L Creatine Kinase (55 - 170 U/L) 354 H Troponin I (<0.11 ng/ml) 0.40 *H Uxy-U-Aneuvjslijk Pept (<125 pg/mL) 1230 H Coagulation PT (9.4 - 12.5 SEC) > 103.0 *H INR (0.90 - 1.17) > 10.0 *H APTT (25 - 37 SEC) 79 H Hematology CBC w Diff MAN DIFF ORDERED WBC (4.8 - 10.8 /CUMM) 7.3 RBC (4.70 - 6.10 /CUMM) 4.95 Hgb (14.0 - 18.0 G/DL) 13.7 L Hct (42 - 52 %) 41.5 L MCV (80.0 - 94.0 FL) 83.9 MCH (27.0 - 31.0 PG) 27.8 RDW (11.5 - 14.5 %) 16.3 H Plt Count (130 - 400 /CUMM) 264 MPV (7.4 - 10.4 FL) 8.1 Gran % (42.2 - 75.2 %) 63.6 Lymphocytes % (20.5 - 51.1 %) 15.1 L Monocytes % (1.7 - 9.3 %) 5.0 Eosinophils % (0 - 5 %) 15.9 H Basophils % (0.0 - 2.0 %) 0.4 Absolute Granulocytes (1.4 - 6.5 /CUMM) 4.7 Absolute Lymphocytes (1.2 - 3.4 /CUMM) 1.1 L Absolute Monocytes (0.10 - 0.60 /CUMM) 0.4 Absolute Eosinophils (0.0 - 0.7 /CUMM) 1.2 Absolute Basophils (0.0 - 0.2 /CUMM) 0 Platelet Estimate (ADEQUATE) VERIFIED BY SMEAR Anisocytosis 1+ PUBS MCHC (33.0 - 37.0 G/DL) 33.1 Diagnostic Data CXR Results No acute cardiopulmonary findings compared to 01/13/2017. No overt pneumonia. Assessment/Plan Assessment/Plan 61 y/o gentleman with a PMH of TOMASZ baseline home oxygen 1.5 L and nocturnal 2L, emphysema, pulmonary HTN, obesity, previous tobacco use, CAD s/p stent placement 2003, Atrial fib (on amiodarone and coumadin), 3 prior unscuccessful cardioversion attempts, HLD, type II DM complicated w/ neuropathy, LE stasis dermatitis who is admitted after complaints of progressive lower extremity swelling, intermittent productive cough with yellow sputum and fall yesterday night with inability to get up for approximately 1 hr . Problem list: 1. LE edema with chronic venous stasis 2. Elevated troponins 3. Supratherapeutic INR 4. Atrial fibrillation 5. COPD exacerbation 6. TOMASZ 7. Obesity 8. Diabetes Recommendations: * We'll continue him on furosemide 40 mg IV BID for the next 2 days * Continue to monitor I&O for next negative fluid balance. Daily weights * Continue to monitor renal function and potassium. Supplement potassium for target greater than 4.0. Follow-up magnesium and phosphorus levels Q24hrs * Follow-up will consult for lower extremity ulcerations * Lower extremity ulcerations could also be secondary to chronic steroid use * COnsider rechecking TFTs as well * Elevated troponins likely secondary to type II in setting of no EKG changes. Continue carvedilol 25 mg BID, lisinopril 5 mg daily * Pulmonology consult for possible underlying COPD exacerbation. Steroid taper per Anselmo Esparza MD recommendations * Supratherapeutic INR likely secondary to recent Augmentin use. We'll continue to hold Coumadin for target INR between 2 and 3 * Diabetic diet with insulin sliding scale Problem List: 1. Peripheral edema 2. Chronic wound of extremity 3. Supratherapeutic INR 4. Atrial fibrillation 5. Obstructive sleep apnea 6. COPD exacerbation 7. Diabetes mellitus Consult Acknowledgment - Thank you for your consult request.
--- NOTE | 2017-03-25 09:39 | PN- Housestaff ---
Subjective Follow-up For: Fall injury, worsening cough Complaints: no complaints Tele-Events Since Last Visit: Atrial fibrillation, heart rate ranging from 60-93. Subjective: I followed up and examined the patient today. He is resting comfortably in his recliner, is not in distress, legs elevated, doesn't offer any complaint, vitals signs have been stable and no issues overnight. He feels better than yesterday. Bilateral legs were dressed in the morning. Review of Systems Constitutional: Reports: no symptoms. Objective Last 24 Hrs of Vital Signs/I&O Vital Signs Date Time Temp Pulse Resp B/P B/P Pulse O2 O2 Flow FiO2 Mean Ox Delivery Rate 03/25 1600 98.4 84 20 124/60 95 03/25 1002 134/80 03/25 1002 134/80 03/25 1001 134/80 03/25 0848 97.9 79 18 134/80 97 Nasal 1.5L Cannula 03/25 0800 Nasal 1.5L Cannula 03/25 0752 95 Room Air Room Air 03/25 0000 95 Nasal 1.5L Cannula 03/24 2200 90 100/60 03/24 2200 98.3 90 20 100/60 95 Nasal 1.5L Cannula 03/24 2132 Nasal 1.5L Cannula 03/24 1803 97 136/80 03/24 1803 97 136/80 03/24 1803 97 136/80 03/24 1630 95 Nasal 1.5L Cannula 03/24 1616 98.9 97 20 136/80 94 Nasal 1.5L Cannula Intake & Output 03/25 1600 03/25 0800 03/25 0000 Intake Total 720 200 200 Output Total 1700 600 650 Balance -980 -400 -450 Intake, Oral 720 200 200 Output, Urine 1700 600 650 Patient 143.902 kg 145.15 kg Weight Weight Chair scale Estimated Measurement Method Physical Exam General Appearance: Alert, Oriented X3, Cooperative, No Acute Distress, morbidly obese, better than yesterday at admission Other Physical Findings: Head: Normocephalic, atraumatic Eyes: Pupils normal in size, regular, reacting to light and accommodation, EOM normal Ears: B/l normal on inspection Nose: Normal on inspection Throat/mouth: Moist mucosa Neck: Supple, full range of motion, no thyromegaly Heart: Regular rate, irregular rhythm Lung: Vesicular breath sound bilaterally with wheezes b/l and few crackles over the base b/l Abd: Soft, non-tender, no distention appreciated Back: Normal range of motion Extremities: B/l edema++, B/L legs have well dressed wounds, left elbow has a scratch as well, and right forearm has a scratch over his lateral aspect about 15cm in length Neurologic: Alert, oriented x3, Cranial exam grossly intact, Speech is clear and coherent Skin: Warm and dry, except noted above Psychiatric: Calm, cooperative, coherant Current Medications: Current Medications Sig/Ann-Marie Start time Last Medication Dose Route Stop Time Status Admin Acetaminophen 650 MG Q12P PRN 03/25 1013 AC PO Acetaminophen 650 MG Q6P PRN 03/24 1515 DC PO Amiodarone HCl 200 MG DAILY 03/24 1459 AC 03/25 PO 1001 Aspirin Buffered 81 MG DAILY 03/24 1459 AC 03/25 PO 1002 Atorvastatin Calcium 40 MG 1700 03/24 1700 AC 03/25 PO 1715 Budesonide/ 2 PUF BID 03/24 2200 03/25 Formoterol Fumarate INH 1009 Carvedilol 25 MG BID 03/24 1501 AC 03/25 PO 1002 Cholecalciferol 1,000 IU DAILY 03/25 1000 AC 03/25 PO 1002 Cyanocobalamin 1,000 MCG DAILY 03/25 1000 AC 03/25 PO 1002 Docusate Sodium 100 MG BID PRN 03/24 1530 AC 03/25 PO 1000 Fenofibrate 145 MG DAILY 03/25 1000 AC 03/25 PO 1002 Furosemide 20 MG ONCE ONE 03/24 1900 DC 03/24 IV 03/24 190 1902 Furosemide 40 MG 7:30 AM, & 4:30 PM 03/24 1630 AC 03/25 IV 1715 Gabapentin 600 MG Q8 03/24 1507 AC 03/25 PO 1433 Guaifenesin 600 MG Q12 03/24 1525 AC 03/25 PO 1002 Hydromorphone HCl 1 MG Q6P PRN 03/25 0830 AC IV Hydromorphone HCl 2 MG Q6P PRN 03/25 0045 AC 03/25 IV 1248 Hydromorphone HCl 1 MG Q6P PRN 03/24 1515 DC 03/24 IV 1959 Insulin Aspart 0 TIDAC 03/24 1700 DC SC Insulin Aspart 0 TIDAC/HS 03/24 1700 AC 03/25 SC 1715 Insulin Detemir 30 UNITS BID 03/24 2200 AC 03/25 SC 1000 Ipratropium [place] 2.5 ML EVERY 4 HRS/AWAKE 03/25 0800 AC 03/25 INH 1640 Lisinopril 5 MG DAILY 03/24 1508 AC 03/25 PO 1002 Magnesium Chloride 64 MG BID 03/25 1000 AC 03/25 PO 1251 Magnesium Oxide 400 MG ONE ONE 03/25 1115 DC 03/25 PO 03/25 1116 1251 Magnesium Oxide 400 MG ONE ONE 03/24 1845 DC 03/24 PO 03/24 1846 2113 Magnesium Sulfate 1 GM Q2H 03/24 1530 DC 03/24 Dextrose/Water 100 ML IV 03/24 1729 2100 Methylprednisolone 40 MG DAILY 03/24 1515 AC 03/25 IV 1001 Naloxone HCl 0.4 MG Q 5 MINUTES X 3 DO.. 03/24 1530 AC IV Nicotine 21 MG DAILY 03/24 1508 AC 03/25 TOP 1000 Oxycodone HCl 10 MG Q6P PRN 03/24 1545 DC PO Polyethylene Glycol 17 GM AT BEDTIME PRN 03/24 1515 AC PO Potassium Chloride 10 MEQ DAILY 03/25 1000 AC 03/25 PO 1002 Last 24 Hrs of Lab/[facility] Results Last 24 Hrs of Labs/Mics: Laboratory Tests 03/25/17 0625: Anion Gap 12, Estimated GFR > 60, BUN/Creatinine Ratio 34.5 H, Magnesium 1.6, TSH 0.894, Free T4 2.58 H, PT 58.0 *H, INR 5.62 *H, CBC w Diff NO MAN DIFF REQ, RBC 4.71, MCV 83.8, MCH 27.5, RDW 15.9 H, MPV 8.4, Gran % 85.1 H, Lymphocytes % 9.1 L, Monocytes % 4.9, Eosinophils % 0.8, Basophils % 0.1, Absolute Granulocytes 7.7 H, Absolute Lymphocytes 0.8 L, Absolute Monocytes 0.4, Absolute Eosinophils 0.1, Absolute Basophils 0, PUBS MCHC 32.9 L 03/25/17 0000: Troponin I 0.23 *H Microbiology 03/25 829 LOWER RESP: Respiratory Culture - COLB 03/25 829 LOWER RESP: Gram Stain - COLB Assessment/Plan Assessment: 61 [id number] with past medical history of congestive heart failure (EF 55-60% , Dec 2015), CAD/NH with stent placement in 2003, COPD baseline with oxygen, TOMASZ (1.5L/min at daytime, 2L/min during night), non-compliance with BiPAP, atrial fibrillation on Coumadin, HTN, chronic venous insuffeicency with bruises over his b/l legs, diabetes mellitus taking insulin, degenerative joint disease, was refered from Dr Cosby's clinic today after visting him for a mechanical fall injury and persistent cough despite on oral antibiotics. He is currently being managed in the telemetry floor for the following issues: #Acute on chronic diastolic congestive heart failure, HFpEF Patient's symptoms, signs of bilateral leg edema with shortness of breath, fluid overload, increased oxygen requirement, BNP of 1230, is suggestive of congestive heart failure. Of note, his troponin is 0.40 which is high, and needs further trending/evaluation. Elevated levels of troponin is likely due to type II NH ( demand ischemia). -Continue telemetry monitoring -Monitor vitals closely, watch for arrhythmia, change in vital status -Continue diuresis -Strict input output measurements, daily weight measurements #Possible Pneumonia Patient has symptoms of cough with productive green sputum, fever, chills, respiratory distress, which is suggestive of pneumonia. Of note, he has been on antibiotics for more than 2 weeks prior to admission, but was still having symptoms as such so cultures have been sent and is being was off antibiotics for now. #Atrial fibrillation on Coumadin, currently supratherapeutic Patient has history of atrial fibrillation, currently rate controlled, takes warfarin at home and his INR was above 10 upon admission, so was not contused with Coumadin yesterday. Today his INR is 5.62, still supratherapeutic but better than yesterday, will not close Coumadin today either. Of note, he received vitamin K yesterday. We'll monitor INR and dose Coumadin accordingly daily. #Wound Regular wound care, and a wound care consultation to continue #COPD -Total respiratory care/nebulizations -Continue Symbicort -Mucinex added twice a day -Maintain SPO2 above 92%, currently receiving oxygen via nasal cannula -Follow-up sputum/blood culture -Patient is reluctant to any of IV Solu-Medrol considering his blood sugar levels, but has agreed to start with low-dose IV Solu-Medrol. Will continue today. -Of note, he is noncompliant with BiPAP, reports that his social security assessor has been informed -Pulmonary consultation requested #Fall injury, likely mechanical -Maintain fall precautions -Physical therapy evaluation in the morning #Diabetes Mellitus -Patient to be placed on diabetic/CHF type, with regular blood sugar monitoring, and on insulin coverage #Hypomagnesemia (1.6 today) -Repleted for now. Will monitor #Diet: Diabetic/CHF diet #DVT ppx: Currently supratherapeutic INR, while on Coumadin #Pain management: Will place him on his chronic/home pain meds. Cahnge as necessary after reassessment. #Code status: DNR/DNI Problem List: 1. Acute exacerbation of CHF (congestive heart failure) 2. Pneumonia 3. Atrial fibrillation 4. Supratherapeutic INR 5. Fall 6. Diabetes mellitus 7. Obstructive sleep apnea 8. COPD (chronic obstructive pulmonary disease) 9. HTN (hypertension) 10. HLD (hyperlipidemia) Pain Ratin Pain Location: legs Pain Goal: Pain 4 or less Pain Plan: as ordered Tomorrow's Labs & Rationales: INR, CBC, BEP, Mg for repletion and f/u of CHF
--- NOTE | 2017-03-25 10:34 | PN- Student ---
Subjective Subjective: Mr. Burt reports having some difficulties last night with regards to his pain management. He stated that his pain was not completely controlled last night and also that he had some dyspnea. He is comfortable right now on 1.5L oxygen and is diuresing following IV lasix. He reported that he has not been drinking much fluid and still hasnt had any improvement in his edema. Objective Objective: Vital Signs Date Time Temp Pulse Resp B/P B/P Pulse O2 O2 Flow FiO2 Mean Ox Delivery Rate 03/25 1002 134/80 03/25 1002 134/80 03/25 1001 134/80 03/25 0848 97.9 79 18 134/80 97 Nasal 1.5L Cannula 03/25 0752 95 Room Air Room Air 03/25 0000 95 Nasal 1.5L Cannula 03/24 2200 90 100/60 03/24 2200 98.3 90 20 100/60 95 Nasal 1.5L Cannula 03/24 2132 Nasal 1.5L Cannula 03/24 1803 97 136/80 03/24 1803 97 136/80 03/24 1803 97 136/80 03/24 1630 95 Nasal 1.5L Cannula 03/24 1616 98.9 97 20 136/80 94 Nasal 1.5L Cannula 03/24 1457 98.2 88 20 132/86 96 Room Air 03/24 1411 Room Air 03/24 1205 98.2 84 20 150/84 96 Room Air Intake & Output 03/25 1600 03/25 0800 03/25 0000 Intake Total 200 200 Output Total 600 650 Balance -400 -450 Intake, Oral 200 200 Output, Urine 600 650 Patient 317 lb 320 lb Weight Weight Chair scale Estimated Measurement Method Telemetry: atrial fibrillation 60-93 w/o any events Pertinent Labs: Troponin- 0.23 trending down, INR- 5.62, BUN- 38, Vacuum Pan Tender- 1.1, Mag- 1.6, Glucose- 221 PE: General appearance- alert and oriented x3, seated comfortably in chair, no apparent distress HEENT- atraumatic, RENNY, mucus membranes moist and pink Neck- supple, no JVD, no thyromegaly or lymphadenopathy, trachea is midline CV- S1 and S2 heard, no murmurs rubs or gallops noted on auscultation Chest- diffuse expiratory wheezes throughout all lung wheeler on auscultation Abd- soft, non-tender to palpation Skin- warm and well perfused, multiple weeping abrasions on both lower extremities. Ext- 3+ pitting edema bilaterally on Lower extremity Results Results: Laboratory Tests 03/25/17 0625: Anion Gap 12, Estimated GFR > 60, BUN/Creatinine Ratio 34.5 H, Magnesium 1.6, PT 58.0 *H, INR 5.62 *H, CBC w Diff NO MAN DIFF REQ, RBC 4.71, MCV 83.8, MCH 27.5, RDW 15.9 H, MPV 8.4, Gran % 85.1 H, Lymphocytes % 9.1 L, Monocytes % 4.9, Eosinophils % 0.8, Basophils % 0.1, Absolute Granulocytes 7.7 H, Absolute Lymphocytes 0.8 L, Absolute Monocytes 0.4, Absolute Eosinophils 0.1, Absolute Basophils 0, PUBS MCHC 32.9 L 03/25/17 0000: Troponin I 0.23 *H 03/24/17 1700: Troponin I 0.36 *H 03/24/17 1142: Anion Gap 9, Estimated GFR > 60, BUN/Creatinine Ratio 28.2 H, Glucose 129 H, Calcium 9.3, Magnesium 1.3 L, Creatine Kinase 354 H, Troponin I 0.40 *H, Pro-B -Natriuretic Pept 1230 H, PT > 103.0 *H, INR > 10.0 *H, APTT 79 H, CBC w Diff MAN DIFF ORDERED, RBC 4.95, MCV 83.9, MCH 27.8, RDW 16.3 H, MPV 8.1, Gran % 63.6, Lymphocytes % 15.1 L, Monocytes % 5.0, Eosinophils % 15.9 H, Basophils % 0.4, Absolute Granulocytes 4.7, Absolute Lymphocytes 1.1 L, Absolute Monocytes 0.4, Absolute Eosinophils 1.2, Absolute Basophils 0, Platelet Estimate VERIFIED BY SMEAR, Anisocytosis 1+, PUBS MCHC 33.1 Microbiology 03/25 829 LOWER RESP: Respiratory Culture - ORD 03/25 829 LOWER RESP: Gram Stain - ORD 03/24 1706 BLOOD: Blood Culture - RECD 03/24 1706 BLOOD: Blood Culture - RECD Assessment/Plan Assessment: Mr. Johnson is a 61 yo M with a PMH of A-fib, CHF, CAD, HTN, Hyperlipidemia, an TN (stent in 2003), COPD (on 2L NC at home), Bronchitis, and diabetes mellitus. He was admitted to telemetry, from Dr. Cosby's office visit, on 03/24 with worsening dyspnea, lower extremity pain, and weeping sores on both lower extremities. He fell at home 3 days ago while trying to go to the bathroom and was unable to get up for several hours. He sustained numerous abrasions on both lower extemities while trying to get off of the floor which have been weeping fluid. He described his initial leg pain as 17/15 on a pain scale and was 10/15 on admission. During the admission he also reported a cough that has been productive of green phlegm plugs. He denied any chest pain but did state that he had chills the night that he fell. Today Mr. Johnson seems to be a bit better than yesterday. We are working to manage his pain and are diuresing him to relieve the lower extremity edema. He is currently on 1.5 L of oxygen nasal cannula and seems to be saturating well. His troponins were elevated on admission and have been decreasing, latest value listed above. His glucose is elevated at 221, and his Mag was 1.6. He did have a very high INR of 10 on admission that has decreased to 5.62 this morning. Current Medications Sig/Ann-Marie Start time Last Medication Dose Route Stop Time Status Admin Acetaminophen 650 MG Q12P PRN 03/25 1013 AC PO Acetaminophen 650 MG Q6P PRN 03/24 1515 DC PO Amiodarone HCl 200 MG DAILY 03/24 1459 AC 03/25 PO 1001 Aspirin Buffered 81 MG DAILY 03/24 1459 AC 03/25 PO 1002 Atorvastatin Calcium 40 MG 1700 03/24 1700 AC 03/24 PO 1803 Budesonide/ 2 PUF BID 03/24 2200 03/25 Formoterol Fumarate INH 1009 Carvedilol 25 MG BID 03/24 1501 AC 03/25 PO 1002 Cholecalciferol 1,000 IU DAILY 03/25 1000 AC 03/25 PO 1002 Cyanocobalamin 1,000 MCG DAILY 03/25 1000 AC 03/25 PO 1002 Docusate Sodium 100 MG BID PRN 03/24 1530 AC 03/25 PO 1000 Fenofibrate 145 MG DAILY 03/25 1000 AC 03/25 PO 1002 Furosemide 20 MG ONCE ONE 03/24 1900 DC 03/24 IV 03/24 1901 1902 Furosemide 40 MG 7:30 AM, & 4:30 PM 03/24 1630 AC 03/25 IV 0618 Gabapentin 600 MG Q8 03/24 1507 AC 03/25 PO 0600 Guaifenesin 600 MG Q12 03/24 1525 AC 03/25 PO 1002 Hydromorphone HCl 1 MG Q6P PRN 03/25 0830 AC IV Hydromorphone HCl 2 MG Q6P PRN 03/25 0045 AC 03/25 IV 1248 Hydromorphone HCl 1 MG Q6P PRN 03/24 1515 DC 03/24 IV 1959 Insulin Aspart 0 TIDAC 03/24 1700 DC SC Insulin Aspart 0 TIDAC 03/24 1700 DC SC Insulin Aspart 0 TIDAC/HS 03/24 1700 AC 03/25 SC 1250 Insulin Detemir 30 UNITS BID 03/24 2200 AC 03/25 SC 1000 Ipratropium [place] 2.5 ML EVERY 4 HRS/AWAKE 03/25 0800 AC 03/25 INH 1149 Lisinopril 5 MG DAILY 03/24 1508 AC 03/25 PO 1002 Magnesium Chloride 64 MG BID 03/25 1000 AC 03/25 PO 1251 Magnesium Oxide 400 MG ONE 03/25 1115 DC 03/25 PO 03/25 1116 1251 Magnesium Oxide 400 MG ONE 03/24 1845 DC 03/24 PO 03/24 1846 2113 Magnesium Sulfate 1 GM Q2H 03/24 1530 DC 03/24 Dextrose/Water 100 ML IV 03/24 1729 2100 Methylprednisolone 0 .STK-MED ONE 03/24 1525 DC .ROUTE Methylprednisolone 40 MG DAILY 03/24 1515 AC 03/25 IV 1001 Naloxone HCl 0.4 MG Q 5 MINUTES X 3 DO.. 03/24 1530 AC IV Nicotine 21 MG DAILY 03/24 1508 AC 03/25 TOP 1000 Oxycodone HCl 10 MG Q6P PRN 03/24 1545 DC PO Phytonadione 0 .STK-MED ONE 03/24 1523 DC .ROUTE Phytonadione 0 .STK-MED ONE 03/24 1521 DC .ROUTE Phytonadione 5 MG ONCE ONE 03/24 1515 DC 03/24 SC 03/24 1516 1527 Polyethylene Glycol 17 GM AT BEDTIME PRN 03/24 1515 AC PO Potassium Chloride 10 MEQ DAILY 03/25 1000 AC 03/25 PO 1002 Plan: Mr. Johnson'ashvin treatment plan will be centered around diuresing him to relieve the edema of his lower extremities as well as stabilizing his labs. We plan to culture the green sputum he produces from his cough and have started him on low dose steroids to help treat his COPD exacerbation. Once his INR is within therapeutic range we will begin dosing coumadin to maintain target. Continue to treat pain with Hydromorphone. Problem List: 1. LE edema with chronic venous stasis- continue IV lasix 40mg BID and monitor I&Os 2. Elevated troponins- continue to monitor labs, latest show downward trend 3. Supratherapeutic INR- continue to hold coumadin to target of 2-3 4. Atrial fibrillation- continue aspirin, hold coumadin and dose for target INR of 2-3 5. COPD exacerbation- continue methylprednisolone 40mg IV daily as well as home medications. Continue oxygen therapy at 1.5L NC. 6. Obesity- heart healthy diet, dietary consult possible 7. Diabetes- continue to monitor glucose and continue home medication Plan: Mr. Johnson'ashvin treatment plan will be centered around diuresing him to relieve the edema of his lower extremities as well as stabilizing his labs. We plan to culture the green sputum he produces from his cough and have started him on low dose steroids to help treat his COPD exacerbation. Once his INR is within therapeutic range we will begin dosing coumadin to maintain target. Problem List: 1. LE edema with chronic venous stasis- continue IV lasix 40mg BID and monitor I&Os 2. Elevated troponins- continue to monitor labs, latest show downward trend 3. Supratherapeutic INR- continue to hold coumadin to target of 2-3 4. Atrial fibrillation- continue aspirin, hold coumadin and dose for target INR of 2-3 5. COPD exacerbation- continue methylprednisolone 40mg IV daily as well as home medications. Continue oxygen therapy at 1.5L NC. 6. Obesity- heart healthy diet, dietary consult possible 7. Diabetes- continue to monitor glucose and continue home medication
[2017-03-25 16:00] VITALS: BP 124/60
[2017-03-25 22:00] VITALS: BP 130/70
--- NOTE | 2017-03-26 08:25 | PN- Housestaff ---
Subjective Follow-up For: Fall injury, worsening cough (CHF exacerbation) Complaints: pain meds frequency was not sufficiently working Tele-Events Since Last Visit: Atrial fibrillation, heart rate ranging from 76-83. Subjective: I followed up and examined the patient today. He is resting comfortably in his recliner, not in distress, only complains that his pain medications frequency doesn't seem to help him to control his baseline pain, Vital signs have been stable, telemetry events noted as above, no issues overnight otherwise. He feels better than the day before. Review of Systems Constitutional: Reports: no symptoms. Objective Last 24 Hrs of Vital Signs/I&O Vital Signs Date Time Temp Pulse Resp B/P B/P Pulse O2 O2 Flow FiO2 Mean Ox Delivery Rate 03/26 0831 97.7 75 18 118/74 95 Nasal 1.5L Cannula 03/26 0825 96 Nasal 1.5L Cannula 03/26 0000 Nasal 1.5L Cannula 03/25 2200 98.0 69 20 130/70 95 Nasal 1.5L Cannula 03/25 1640 95 Room Air 03/25 1600 Nasal 1.5L Cannula 03/25 1600 98.4 84 20 124/60 95 03/25 1002 134/80 03/25 1002 134/80 03/25 1001 134/80 03/25 0848 97.9 79 18 134/80 97 Nasal 1.5L Cannula Intake & Output 03/26 1600 03/26 0800 03/26 0000 Intake Total 300 200 Output Total 1200 700 Balance -900 -500 Intake, Oral 300 200 Output, Urine 1200 700 Patient 144.809 kg Weight Weight Chair scale Measurement Method Physical Exam General Appearance: Alert, Oriented X3, Cooperative, No Acute Distress, morbidly obese Other Physical Findings: Head: Normocephalic, atraumatic Eyes: Pupils normal in size, regular, reacting to light and accommodation, EOM normal Ears: B/l normal on inspection Nose: Normal on inspection Throat/mouth: Moist mucosa Neck: Supple, full range of motion, no thyromegaly Heart: Regular rate, irregular rhythm Lung: Vesicular breath sound bilaterally with wheezes b/l and few crackles over the base b/l Abd: Soft, non-tender, no distention appreciated Back: Normal range of motion Extremities: B/l edema++, right leg has multiple blisters anteriorly with erythema, left leg and left knee has abrasions and is swollen and is oozing, left elbow has a scratch as well, and right forearm has a scratch over his lateral aspect about 15cm in length Neurologic: Alert, oriented x3, Cranial exam grossly intact, Speech is clear and coherent Skin: Warm and dry, except noted above Psychiatric: Calm, cooperative, coherant Current Medications: Current Medications Sig/Ann-Marie Start time Last Medication Dose Route Stop Time Status Admin Acetaminophen 650 MG Q6P PRN 03/26 0730 AC PO Acetaminophen 650 MG Q12P PRN 03/25 1013 DC PO Acetaminophen 650 MG Q6P PRN 03/24 1515 DC PO Amiodarone HCl 200 MG DAILY 03/24 1459 AC 03/25 PO 1001 Aspirin Buffered 81 MG DAILY 03/24 1459 AC 03/25 PO 1002 Atorvastatin Calcium 40 MG 1700 03/24 1700 AC 03/25 PO 1715 Budesonide/ 2 PUF BID 03/24 2200 AC 03/25 Formoterol Fumarate INH 2154 Carvedilol 25 MG BID 03/24 1501 AC 03/25 PO 2201 Cholecalciferol 1,000 IU DAILY 03/25 1000 AC 03/25 PO 1002 Cyanocobalamin 1,000 MCG DAILY 03/25 1000 AC 03/25 PO 1002 Docusate Sodium 100 MG BID PRN 03/24 1530 AC 03/25 PO 1000 Fenofibrate 145 MG DAILY 03/25 1000 AC 03/25 PO 1002 Furosemide 40 MG 7:30 AM, & 4:30 PM 03/24 1630 AC 03/26 IV 0529 Gabapentin 600 MG Q8 03/24 1507 AC 03/26 PO 0500 Guaifenesin 600 MG Q12 03/24 1525 AC 03/25 PO 2153 Hydromorphone HCl 1 MG Q6P PRN 03/26 0730 AC IV Hydromorphone HCl 1 MG Q6P PRN 03/25 0830 DC IV Hydromorphone HCl 2 MG Q6P PRN 03/25 0045 AC 03/26 IV 0500 Insulin Aspart 0 TIDAC/HS 03/24 1700 AC 03/26 SC 0828 Insulin Detemir 30 UNITS BID 03/24 2200 AC 03/25 SC 2154 Ipratropium [place] 2.5 ML EVERY 4 HRS/AWAKE 03/25 0800 AC 03/26 INH 0812 Lisinopril 5 MG DAILY 03/24 1508 AC 03/25 PO 1002 Magnesium Chloride 64 MG BID 03/25 1000 AC 03/25 PO 2154 Magnesium Oxide 400 MG ONE ONE 03/25 1115 DC 03/25 PO 03/25 1116 1251 Methylprednisolone 40 MG DAILY 03/24 1515 AC 03/25 IV 1001 Naloxone HCl 0.4 MG Q 5 MINUTES X 3 DO.. 03/24 1530 AC IV Nicotine 21 MG DAILY 03/24 1508 AC 03/25 TOP 1000 Polyethylene Glycol 17 GM AT BEDTIME PRN 03/24 1515 AC PO Potassium Chloride 10 MEQ DAILY 03/25 1000 AC 03/25 PO 1002 Last 24 Hrs of Lab/[place] Results Last 24 Hrs of Labs/Mics: Laboratory Tests 03/26/17 0620: Anion Gap 13, Estimated GFR > 60, BUN/Creatinine Ratio 36.4 H, Phosphorus 3.7, Magnesium 1.7, CBC w Diff Pending, WBC Pending, RBC Pending, Hgb Pending, Hct Pending, MCV Pending, MCH Pending, RDW Pending, Plt Count Pending, MPV Pending, PUBS MCHC Pending Assessment/Plan Assessment: 61 [id number] with past medical history of congestive heart failure (EF 55-60% , Dec 2015), CAD/PR with stent placement in 2003, COPD baseline with oxygen, TOMASZ (1.5L/min at daytime, 2L/min during night), non-compliance with BiPAP, atrial fibrillation on Coumadin, HTN, chronic venous insuffeicency with bruises over his b/l legs, diabetes mellitus taking insulin, degenerative joint disease, was refered from Dr Cosby's clinic today after visting him for a mechanical fall injury and persistent cough despite on oral antibiotics. He is currently being managed in the telemetry floor for the following issues: #Acute on chronic diastolic congestive heart failure, HFpEF Patient is having CHF exacerbation. Elevated levels of troponin is likely due to type II PR (demand ischemia). -Continue telemetry monitoring -Monitor vitals closely, watch for arrhythmia, change in vital status -Continue diuresis, currently neg balance -1.8L -Strict input output measurements, daily weight measurements #Possible Pneumonia Patient had symptoms of cough with productive green sputum, fever, chills, respiratory distress, which is suggestive of pneumonia. Of note, he was on antibiotics for more than 2 weeks prior to admission, but this has now resolved and he could not produce any sputum even to give sample. [facility] cancelled. #Atrial fibrillation on Coumadin, initially supratherapeutic Patient has history of atrial fibrillation, currently rate controlled, takes warfarin at home and his INR was above 10 upon admission, so was not continued with Coumadin yesterday. Today his INR is 2.18, now therapeutic, so will keep monitoring, and dose Coumadin from tomorrow. #Wound, 2/2 mechanical fall injury -Continue wound care -Maintain fall precautions #COPD -Total respiratory care/nebulizations -Continue Symbicort -Mucinex added twice a day -Maintain SPO2 above 92%, currently receiving oxygen via nasal cannula -Follow-up sputum/blood culture -IV Solu-Medrol till today, and PO Prednisone from tomorrow per Pulm consultation. -Of note, he is noncompliant with BiPAP, reports that his ambulance officer has been informed -Pulmonary consultation appreciated. #Diabetes Mellitus -Patient is on diabetic/CHF diet, with regular blood sugar monitoring, and on insulin coverage #Hypomagnesemia (1.7 today) -Repleted for now. Will monitor #Diet: Diabetic/CHF diet #DVT ppx: Currently supratherapeutic INR, while on Coumadin #Pain management: Will place him on his chronic/home pain meds. Duration modified today to match the required pain coverage. #Code status: DNR/DNI changed to FULL CODE Problem List: 1. CHF exacerbation 2. Afib 3. Supratherapeutic INR 4. Diabetes mellitus 5. Fall Pain Ratin Pain Location: b/l legs, R>L Pain Goal: Pain 4 or less Pain Plan: prn meds ordered, and frequencies changed today Tomorrow's Labs & Rationales: INR, Mg, CBC, BEP to replete, dose coumadin, f/u on infection
[2017-03-26 08:31] VITALS: BP 118/74
--- NOTE | 2017-03-26 08:31 | PN- Student ---
Subjective Subjective: This morning Mr. Johnson complains of pain that is not well controlled. He asked to have his pain medication altered to better treat his pain. He reports his wounds still leaking through his bandages. He denies any chest pain or abdominal pain and states that he has no problems going to the bathroom. He is ambulatory with his cane but has pain. Objective Objective: Vital Signs Date Time Temp Pulse Resp B/P B/P Pulse O2 O2 Flow FiO2 Mean Ox Delivery Rate 03/26 0825 96 Nasal 1.5L Cannula 03/26 0000 Nasal 1.5L Cannula 03/25 2200 98.0 69 20 130/70 95 Nasal 1.5L Cannula 03/25 1640 95 Room Air 03/25 1600 Nasal 1.5L Cannula 03/25 1600 98.4 84 20 124/60 95 03/25 1002 134/80 03/25 1002 134/80 03/25 1001 134/80 03/25 0848 97.9 79 18 134/80 97 Nasal 1.5L Cannula Intake & Output 03/26 1600 03/26 0800 03/26 0000 Intake Total 300 200 Output Total 1200 700 Balance -900 -500 Intake, Oral 300 200 Output, Urine 1200 700 Patient 319 lb Weight Weight Chair scale Measurement Method Telemetry: atrial fibrillation 76-98 with no events labs: glucose- 252 @0603, H/H- 13.4/41, WBC- 10.5, BUN- 40, Floor Layer Tile.- 1.1, Mag- 1.7, K+- 4.8, TSH- 0.894, free T3- 2.58, 24 hr fluid- -1880, Wt.- 319 PE: General appearance- alert and oriented x3, seated comfortably in chair, no apparent distress HEENT- atraumatic, RENNY, mucus membranes moist and pink Neck- supple, no JVD, no thyromegaly or lymphadenopathy, trachea is midline CV- S1 and S2 heard, no murmurs rubs or gallops noted on auscultation Chest- diffuse expiratory wheezes throughout both lung bases on auscultation Abd- soft, non-tender to palpation Skin- warm and well perfused, multiple blisters on anterior legs bilaterally with oozing abrasions on both lower extremities. Also has scratch on right arm and left elbow abrasion. Ext- 2+ pitting edema bilaterally on Lower extremity Results Results: Laboratory Tests 03/26/17 0620: Anion Gap 13, Estimated GFR > 60, BUN/Creatinine Ratio 36.4 H, Phosphorus 3.7, Magnesium 1.7, CBC w Diff NO MAN DIFF REQ, RBC 4.85, MCV 84.6, MCH 27.6, RDW 15.9 H, MPV 8.4, Gran % 81.3 H, Lymphocytes % 11.2 L, Monocytes % 5.8, Eosinophils % 1.5, Basophils % 0.2, Absolute Granulocytes 8.5 H, Absolute Lymphocytes 1.2, Absolute Monocytes 0.6, Absolute Eosinophils 0.2, Absolute Basophils 0, PUBS MCHC 32.6 L 03/25/17 0625: Anion Gap 12, Estimated GFR > 60, BUN/Creatinine Ratio 34.5 H, Magnesium 1.6, TSH 0.894, Free T4 2.58 H, PT 58.0 *H, INR 5.62 *H, CBC w Diff NO MAN DIFF REQ, RBC 4.71, MCV 83.8, MCH 27.5, RDW 15.9 H, MPV 8.4, Gran % 85.1 H, Lymphocytes % 9.1 L, Monocytes % 4.9, Eosinophils % 0.8, Basophils % 0.1, Absolute Granulocytes 7.7 H, Absolute Lymphocytes 0.8 L, Absolute Monocytes 0.4, Absolute Eosinophils 0.1, Absolute Basophils 0, PUBS MCHC 32.9 L 03/25/17 0000: Troponin I 0.23 *H 03/24/17 1700: Troponin I 0.36 *H 03/24/17 1142: Anion Gap 9, Estimated GFR > 60, BUN/Creatinine Ratio 28.2 H, Glucose 129 H, Calcium 9.3, Magnesium 1.3 L, Creatine Kinase 354 H, Troponin I 0.40 *H, Pro-B -Natriuretic Pept 1230 H, PT > 103.0 *H, INR > 10.0 *H, APTT 79 H, CBC w Diff MAN DIFF ORDERED, RBC 4.95, MCV 83.9, MCH 27.8, RDW 16.3 H, MPV 8.1, Gran % 63.6, Lymphocytes % 15.1 L, Monocytes % 5.0, Eosinophils % 15.9 H, Basophils % 0.4, Absolute Granulocytes 4.7, Absolute Lymphocytes 1.1 L, Absolute Monocytes 0.4, Absolute Eosinophils 1.2, Absolute Basophils 0, Platelet Estimate VERIFIED BY SMEAR, Anisocytosis 1+, PUBS MCHC 33.1 Microbiology 03/25 08 LOWER RESP: Respiratory Culture - COLB 03/25 829 LOWER RESP: Gram Stain - COLB 03/24 1706 BLOOD: Blood Culture - RES 03/24 1706 BLOOD: Blood Culture - RES Assessment/Plan Assessment: Current Medications Sig/Ann-Marie Start time Last Medication Dose Route Stop Time Status Admin Acetaminophen 650 MG Q6P PRN 03/26 0730 AC PO Acetaminophen 650 MG Q12P PRN 03/25 1013 DC PO Acetaminophen 650 MG Q6P PRN 03/24 1515 DC PO Amiodarone HCl 200 MG DAILY 03/24 1459 AC 03/25 PO 1001 Aspirin Buffered 81 MG DAILY 03/24 1459 AC 03/25 PO 1002 Atorvastatin Calcium 40 MG 1700 03/24 1700 AC 03/25 PO 1715 Budesonide/ 2 PUF BID 03/24 2200 03/25 Formoterol Fumarate INH 2154 Carvedilol 25 MG BID 03/24 1501 AC 03/25 PO 2201 Cholecalciferol 1,000 IU DAILY 03/25 1000 AC 03/25 PO 1002 Cyanocobalamin 1,000 MCG DAILY 03/25 1000 AC 03/25 PO 1002 Docusate Sodium 100 MG BID PRN 03/24 1530 AC 03/25 PO 1000 Fenofibrate 145 MG DAILY 03/25 1000 AC 03/25 PO 1002 Furosemide 40 MG 7:30 AM, & 4:30 PM 03/24 1630 AC 03/26 IV 0529 Gabapentin 600 MG Q8 03/24 1507 AC 03/26 PO 0500 Guaifenesin 600 MG Q12 03/24 1525 AC 03/25 PO 2153 Hydromorphone HCl 1 MG Q6P PRN 03/26 0730 AC IV Hydromorphone HCl 1 MG Q6P PRN 03/25 0830 DC IV Hydromorphone HCl 2 MG Q6P PRN 03/25 0045 AC 03/26 IV 0500 Insulin Aspart 0 TIDAC/HS 03/24 1700 AC 03/26 SC 0828 Insulin Detemir 30 UNITS BID 03/24 2200 03/25 SC 2154 Ipratropium [place] 2.5 ML EVERY 4 HRS/AWAKE 03/25 0800 AC 03/26 INH 0812 Lisinopril 5 MG DAILY 03/24 1508 AC 03/25 PO 1002 Magnesium Chloride 64 MG BID 03/25 1000 AC 03/25 PO 2154 Magnesium Oxide 400 MG ONE ONE 03/25 1115 DC 03/25 PO 03/25 1116 1251 Methylprednisolone 40 MG DAILY 03/24 1515 AC 03/25 IV 1001 Naloxone HCl 0.4 MG Q 5 MINUTES X 3 DO.. 03/24 1530 AC IV Nicotine 21 MG DAILY 03/24 1508 AC 03/25 TOP 1000 Polyethylene Glycol 17 GM AT BEDTIME PRN 03/24 1515 AC PO Potassium Chloride 10 MEQ DAILY 03/25 1000 AC 03/25 PO 1002 Mr. Johnson is a 61 yo M with a PMH of A-fib, CHF, CAD, HTN, Hyperlipidemia, an CO (stent in 2003), COPD (on 2L NC at home), Bronchitis, and diabetes mellitus. He was admitted to telemetry, from Dr. Cosby's office visit, on 03/24 with worsening dyspnea, lower extremity pain, and weeping sores on both lower extremities. He fell at home 3 days ago while trying to go to the bathroom and was unable to get up for several hours. He sustained numerous abrasions on both lower extemities while trying to get off of the floor which have been weeping fluid. He described his initial leg pain as 17/15 on a pain scale and was 10/15 on admission. During the admission he also reported a cough that has been productive of green phlegm plugs. He denied any chest pain but did state that he had chills the night that he fell. He is complaining of inadequate pain control today mostly related to the effects not lasting as long as needed. He is still requiring wound dressing changes pretty frequently, about every hour or so, due to his oozing leg wounds. The edema seems to be improving as is his dyspnea. We are still giving him steroids for his COPD and working to control his blood glucose levels as well. Plan: Will continue to diurese patient and monitor electrolytes as well as treat his wounds. Will also follow Cardio Recommendations as listed below. Recommendations: * We'll continue him on furosemide 40 mg IV BID for the next 2 days * Continue to monitor I&O for next negative fluid balance. Daily weights * Continue to monitor renal function and potassium. Supplement potassium for target greater than 4.0. Follow-up magnesium and phosphorus levels Q24hrs * Follow-up will consult for lower extremity ulcerations * Lower extremity ulcerations could also be secondary to chronic steroid use * COnsider rechecking TFTs as well * Elevated troponins likely secondary to type II in setting of no EKG changes. Continue carvedilol 25 mg BID, lisinopril 5 mg daily * Pulmonology consult for possible underlying COPD exacerbation. Steroid taper per Anselmo Esparza MD recommendations * Supratherapeutic INR likely secondary to recent Augmentin use. We'll continue to hold Coumadin for target INR between 2 and 3 * Diabetic diet with insulin sliding scale Problem List: 1. Wounds- continue with wound care protocol. 1. LE edema with chronic venous stasis- continue IV lasix 40mg BID and monitor I&Os 2. Elevated troponins- continue to monitor labs, latest show downward trend 3. Supratherapeutic INR- continue to hold coumadin to target of 2-3 4. Atrial fibrillation- continue aspirin, hold coumadin and dose for target INR of 2-3 5. COPD exacerbation- continue methylprednisolone 40mg IV daily as well as home medications. Continue oxygen therapy at 1.5L NC during day and 2.0L at night. 6. Obesity- heart healthy diet, dietary consult possible 7. Diabetes- continue to monitor glucose and continue home medication 7. Diabetes- continue to monitor glucose and continue home medication
[2017-03-26 08:38] LABS: ABSOLUTE BASOPHIL COUNT 0 /CUMM (0.0-0.2); ABSOLUTE EOSINOPHIL COUNT 0.2 /CUMM (0.0-0.7); ABSOLUTE GRANULOCYTE CT 8.5 /CUMM (1.4-6.5); ABSOLUTE LYMPH COUNT 1.2 /CUMM (1.2-3.4); ABSOLUTE MONOCYTE COUNT 0.6 /CUMM (0.10-0.60); BASOPHIL % 0.2 % (0.0-2.0); EOSINOPHIL % 1.5 % (0-5); GRANULOCYTE % 81.3 % (42.2-75.2); MEAN CORPUSCULAR HGB 27.6 PG (27.0-31.0); MEAN CORPUSCULAR HGB CONC 32.6 G/DL (33.0-37.0); MEAN CORPUSCULAR VOLUME 84.6 FL (80.0-94.0); MEAN PLATELET VOLUME 8.4 FL (7.4-10.4); PLATELET COUNT 303 /CUMM (130-400); RBC DISTRIBUTION WIDTH 15.9 % (11.5-14.5); RED BLOOD CELL CT 4.85 /CUMM (4.70-6.10); WHITE BLOOD CELL COUNT 10.5 /CUMM (4.8-10.8)
--- NOTE | 2017-03-26 10:33 | Cons- Pulmonary ---
TOMA TO 03/26/17 1032: General Information and HPI Consulting Request Date of Consult: 03/26/17 Requested By: Dr. Cosby Reason for Consult: copd Source of Information: patient, old records Exam Limitations: no limitations History of Present Illness: This is 61-year-old male with a past mental history significant for CAD status post TX with stent placement in 2003, recurrent congestive heart failure with a preserved ejection fraction, COPD on 1.5 L home oxygen, atrial fibrillation on amiodarone and warfarin, severe peripheral vascular disease, venous insufficiency, hypertension, type 2 diabetes with neuropathy, and obstructive sleep apnea, noncompliant with nasal CPAP. She was recently discharged from different hospital mid-December, and after that he had productive cough with thick green sputum associated with wheezing and chills and worsening difficulty in breathing, he was placed on Augmentin oral antibiotic and by mouth prednisone , patient complete a total course after 3 weeks he did now patient stated that his cough and wheezing improve, and he dropped his shortness of breathing was likely to his underlying congestive heart failure, as he report progressing lower extremity edema and minimal wheezing and dry cough without any sputum production also he deny any chest pain, fever, chills. Patient reports mechanical fall injury last week at home. Denied any sick contacts. Allergies/Medications Allergies: Coded Allergies: NO KNOWN ALLERGIES (08/21/16) Home Med List: Amiodarone HCl 200 MG TABLET 1 TAB PO DAILY AFIB (Reported) Aspirin (Ecotrin*) 81 MG TABLET.DR 1 TAB PO DAILY HEART/BLOOD (Reported) Atorvastatin Calcium 40 MG TABLET 1 TAB PO DAILY CHOLESTEROL (Reported) Budesonide/Formoterol Fumarate (Symbicort 160-4.5 Mcg Inhaler) 10.2 GM HFA.AER.AD 2 PUF INH BID COPD Carvedilol 25 MG TABLET 1 TAB PO BID HEART (Reported) Cholecalciferol (Vitamin D3) (Vitamin D) 2,000 UNIT TABLET 1 TAB PO DAILY SUPPLEMENT (Reported) Cyanocobalamin (Vitamin B-12) (Vitamin B-12) 2,000 MCG TABLET 1 TAB PO DAILY SUPPLEMENT (Reported) Docusate Sodium (Colace) 100 MG CAPSULE 1 CAP PO BID PRN Constipation Fenofibrate 160 MG TABLET 1 TAB PO DAILY CHOLESTEROL (Reported) Furosemide (Lasix) 40 MG TABLET 1 TAB PO SI CHF For the next 1 week, please alternate taking 1 pill (40mg) and 2 pills (80mg) Gabapentin 600 MG TABLET 1 TAB PO TID NEUROPATHY (Reported) Insulin Aspart, Recombinant (Novolog Flexpen) 100 UNIT/1 ML INSULN.PEN 0 SC TIDAC/HS DIABETES BLOOD SUGAR BEFORE MEALS UNITS BEDTIME LESS THAN 80 INITIATE HYPOGLYCEMIA 80-150 16 UNITS 151-200 18 UNITS 201-250 20 UNITS 251-300 22 UNITS 4 UNITS 301-350 24 UNITS 6 UNITS 351-400 26 UNITS 8 UNITS 351-400 26 UNITS, CALL 10 UNITS, CALL Insulin Detemir (Levemir Flextouch) 100 UNIT/ML (3 ML) INSULN.PEN 30 UNITS SC BID DM (Reported) Levalbuterol HCl 1.25 MG/3 ML VIAL.NEB 1 INH PO Q4 BREATHING PROBLEMS ( Reported) Lisinopril (Prinivil) 5 MG TABLET 1 TAB PO DAILY HTN (Reported) Metformin HCl 850 MG TABLET 850 MG PO 0800,1700 diabetes Nicotine (Nicoderm Cq) 21 MG/24 HOUR PATCH.TD24 1 PAT TOP DAILY SMOKING ( Reported) Oxycodone HCl 10 MG TABLET 10 MG PO TID CHRONIC PAIN (Reported) Polyethylene Glycol 3350 (Miralax) 119 GM POWDER 17 GM PO AT BEDTIME PRN CONSTIPATION Potassium Chloride 10 MEQ CAPSULE.ER 1 CAP PO DAILY SUPPLEMENT (Reported) Warfarin Sodium (Coumadin) 10 MG TABLET 1 TAB PO SuMoTuThFrSa BLOOD THINNER ( Reported) Current Medications: Current Medications Sig/Ann-Marie Start time Last Medication Dose Route Stop Time Status Admin Acetaminophen 650 MG Q6P PRN 03/26 0730 AC PO Acetaminophen 650 MG Q12P PRN 03/25 1013 DC PO Amiodarone HCl 200 MG DAILY 03/24 1459 AC 03/26 PO 1031 Aspirin Buffered 81 MG DAILY 03/24 1459 AC 03/26 PO 1031 Atorvastatin Calcium 40 MG 1700 03/24 1700 03/25 PO 1715 Budesonide/ 2 PUF BID 03/24 2200 AC 03/26 Formoterol Fumarate INH 1031 Carvedilol 25 MG BID 03/24 1501 AC 03/26 PO 1031 Cholecalciferol 1,000 IU DAILY 03/25 1000 AC 03/26 PO 1032 Cyanocobalamin 1,000 MCG DAILY 03/25 1000 AC 03/26 PO 1032 Docusate Sodium 100 MG BID PRN 03/24 1530 AC 03/26 PO 1032 Fenofibrate 145 MG DAILY 03/25 1000 AC 03/26 PO 1032 Furosemide 40 MG 7:30 AM, & 4:30 PM 03/24 1630 AC 03/26 IV 0529 Gabapentin 600 MG Q8 03/24 1507 AC 03/26 PO 0500 Guaifenesin 600 MG Q12 03/24 1525 AC 03/26 PO 1031 Hydromorphone HCl 1 MG Q6P PRN 03/26 0730 AC IV Hydromorphone HCl 1 MG Q6P PRN 03/25 0830 DC IV Hydromorphone HCl 2 MG Q6P PRN 03/25 0045 AC 03/26 IV 0500 Insulin Aspart 0 TIDAC/HS 03/24 1700 AC 03/26 SC 0828 Insulin Detemir 30 UNITS BID 03/24 2200 AC 03/26 SC 1032 Ipratropium [place] 2.5 ML EVERY 4 HRS/AWAKE 03/25 0800 AC 03/26 INH 0812 Lisinopril 5 MG DAILY 03/24 1508 AC 03/26 PO 1032 Magnesium Chloride 64 MG BID 03/25 1000 AC 03/26 PO 1032 Magnesium Oxide 400 MG ONE ONE 03/26 0845 DC 03/26 PO 03/26 0846 1032 Magnesium Oxide 400 MG ONE ONE 03/25 1115 DC 03/25 PO 03/25 1116 1251 Methylprednisolone 40 MG DAILY 03/24 1515 AC 03/26 IV 1032 Naloxone HCl 0.4 MG Q 5 MINUTES X 3 DO.. 03/24 1530 AC IV Nicotine 21 MG DAILY 03/24 1508 AC 03/26 TOP 1032 Polyethylene Glycol 17 GM AT BEDTIME PRN 03/24 1515 AC PO Potassium Chloride 10 MEQ DAILY 03/25 1000 AC 03/26 PO 1031 Review of Systems Review of Systems Constitutional: Reports: weakness. Denies: chills, fever. EENTM: Denies: blurred vision, double vision. Cardiovascular: Reports: orthopena, peripheral edema. Denies: chest pain, palpitations. Respiratory: Reports: cough, short of breath, wheezing. Denies: sputum production. GI: Denies: abdominal pain, diarrhea, distention, nausea, vomiting. Genitourinary: Denies: hematuria, pain. Musculoskeletal: Denies: back pain, joint pain. Neurological/Psychological: Denies: anxiety, confusion. Hematologic/Endocrine: Denies: bruising. Past History Travel History Traveled to [place] past 21 day No Medical History Blood Transfusion Hx: No Neurological: NONE EENT: NONE Cardiovascular: AFIB, CAD, chronic venous insuff, hypertension, hyperlipidemia, myocardial infarction, STENT 2003 Respiratory: bronchitis, COPD, emphysema, obstructive sleep apnea, 02 1.5 L Gastrointestinal: NONE Hepatic: NONE Renal: NONE Musculoskeletal: degen joint disease Psychiatric: NONE Endocrine: diabetes Blood Disorders: DVT LLE Cancer(s): NONE EDUCATION LIAISON/Reproductive: NONE Surgical History Surgical History: cholecystectomy, knee replacement (left knee), status post aborted maze procedure b/l LE venous sclerotherapy Family History Relations & Conditions If Any: FATHER FH: heart attack FH: HTN (hypertension) MOTHER FH: heart attack FH: HTN (hypertension) FHx: stroke SISTER FH: breast cancer FH: CHF (congestive heart failure) Psychosocial History Where Do You Live? Home Who Do You Live With? spouse Services at Home: Oxygen Primary Language: Malay Smoking Status: Former Smoker ETOH Use: denies use Illicit Drug Use: denies illicit drug use Living Will? no Power of Post Acute Care Registered Nurse/HCP? no Functional Ability ADLs Independent: dressing, eating, toileting, bathing. Ambulation: walker (also uses cane sometimes) IADLs Independent: shopping, housework, finances, food prep, telephone, transportation , medication admin. ECHO Results (as available) Date of last Echo 01/15/17 EF% 55 Exam & Diagnostic Data Last 24 Hrs of Vital Signs/I&O Vital Signs Date Time Temp Pulse Resp B/P B/P Pulse O2 O2 Flow FiO2 Mean Ox Delivery Rate 03/26 1032 118/74 03/26 1031 118/74 03/26 1031 118/74 03/26 0831 97.7 75 18 118/74 95 Nasal 1.5L Cannula 03/26 0825 96 Nasal 1.5L Cannula 03/26 0000 Nasal 1.5L Cannula 03/25 2200 98.0 69 20 130/70 95 Nasal 1.5L Cannula 03/25 1640 95 Room Air 03/25 1600 Nasal 1.5L Cannula 03/25 1600 98.4 84 20 124/60 95 Intake & Output 03/26 1600 03/26 0800 03/26 0000 Intake Total 300 200 Output Total 1200 700 Balance -900 -500 Intake, Oral 300 200 Output, Urine 1200 700 Patient 319 lb Weight Weight Chair scale Measurement Method Physical Exam General Appearance: alert, awake, obese Head: atraumatic Eyes: Bilateral: normal appearance, PERRL, EOMI. Neck: supple Respiratory: chest non-tender, no respiratory distress, decreased breath sounds, wheezing Cardiovascular: edema, irregularly irregular Peripheral Pulses: 2+ radial (R), 2+ radial (L) Gastrointestinal: normal bowel sounds, soft, non-tender, obese Extremities: bilateral pitting edema, dressing noted on both EXt. Skin: lower ext dressing noted otherwise skin intact Last 48 Hrs of Labs/[place]: Laboratory Tests 03/26/17 0620: Anion Gap 13, Estimated GFR > 60, BUN/Creatinine Ratio 36.4 H, Phosphorus 3.7, Magnesium 1.7, CBC w Diff NO MAN DIFF REQ, RBC 4.85, MCV 84.6, MCH 27.6, RDW 15.9 H, MPV 8.4, Gran % 81.3 H, Lymphocytes % 11.2 L, Monocytes % 5.8, Eosinophils % 1.5, Basophils % 0.2, Absolute Granulocytes 8.5 H, Absolute Lymphocytes 1.2, Absolute Monocytes 0.6, Absolute Eosinophils 0.2, Absolute Basophils 0, PUBS MCHC 32.6 L 03/25/17 0625: Anion Gap 12, Estimated GFR > 60, BUN/Creatinine Ratio 34.5 H, Magnesium 1.6, TSH 0.894, Free T4 2.58 H, PT 58.0 *H, INR 5.62 *H, CBC w Diff NO MAN DIFF REQ, RBC 4.71, MCV 83.8, MCH 27.5, RDW 15.9 H, MPV 8.4, Gran % 85.1 H, Lymphocytes % 9.1 L, Monocytes % 4.9, Eosinophils % 0.8, Basophils % 0.1, Absolute Granulocytes 7.7 H, Absolute Lymphocytes 0.8 L, Absolute Monocytes 0.4, Absolute Eosinophils 0.1, Absolute Basophils 0, PUBS MCHC 32.9 L 03/25/17 0000: Troponin I 0.23 *H 03/24/17 1700: Troponin I 0.36 *H 03/24/17 1142: Anion Gap 9, Estimated GFR > 60, BUN/Creatinine Ratio 28.2 H, Glucose 129 H, Calcium 9.3, Magnesium 1.3 L, Creatine Kinase 354 H, Troponin I 0.40 *H, Pro-B -Natriuretic Pept 1230 H, PT > 103.0 *H, INR > 10.0 *H, APTT 79 H, CBC w Diff MAN DIFF ORDERED, RBC 4.95, MCV 83.9, MCH 27.8, RDW 16.3 H, MPV 8.1, Gran % 63.6, Lymphocytes % 15.1 L, Monocytes % 5.0, Eosinophils % 15.9 H, Basophils % 0.4, Absolute Granulocytes 4.7, Absolute Lymphocytes 1.1 L, Absolute Monocytes 0.4, Absolute Eosinophils 1.2, Absolute Basophils 0, Platelet Estimate VERIFIED BY SMEAR, Anisocytosis 1+, PUBS MCHC 33.1 Diagnostic Data CXR Results SERVICE DATE: 03/24/17 EXAM TYPE: RAD - XRY-PORTABLE CHEST XRAY EXAMINATION: XR PORTABLE CHEST CLINICAL INFORMATION: Cough and phlegm production. Evaluate for pneumonia. COMPARISON: CXR from 01/13/2017 TECHNIQUE: Portable AP view of the chest was obtained. FINDINGS: Patient has a large body habitus and there is chronic prominence of the mediastinal fat and paracardiac fat pads. Lung bases are suboptimally evaluated due to the patient body habitus. There is suggestion of chronic, mild atelectasis in lung bases without convincing acute consolidation. No pulmonary edema or pleural effusion. Cardiac silhouette is borderline enlarged. Thoracic aorta is calcified. Bones are unremarkable. IMPRESSION: No acute cardiopulmonary findings compared to 01/13/2017. No overt pneumonia. Assessment/Plan Impression/Plan: Impression/Plan: 1. congestive heart failure exacerbation. 2. History of COPD. 3. Supratherapeutic INR 4. Diabetes. 5. Chronic venous stasis. Recommendations: * Continue Mucinex 600 mg BID. * Continue IV Solu-Medrol 40 mg IV for now, converted to by mouth tomorrow. * Continue TRC for neb treatments. * Oxygen to maintain saturations greater than 92%. * Continue Symbicort 2 inhalations every 12 hours. * Monitor blood sugars while on steroids. * Diuresis per cardiology. * Follow-up sputum culture results. * Continue all supportive care. Consult Acknowledgment - Thank you for your consult request. Anselmo HAYES MD 03/27/17 0945: Assessment/Plan Other Findings/Comments: I have personally seen and examined the patient, and agree with the resident's assessment and plan as detailed above. We will continue the patient on Mucinex, prednisone, neb treatments, and Symbicort. The patient will be monitored off antibiotics unless a source of infection is identified. He will continue on diuresis and treatment for fluid overload as per cardiology. We will continue all supportive care. Consult Acknowledgment - Thank you for your consult request.
--- NOTE | 2017-03-26 11:13 | NUR ---
WOUND CARE: REQUESTED BY PT TO EVALUATE FOR CHRONIC VENOUS STASIS ULCERATIONS TO BLE PREENT ON ADMISSION - PT KNOWN TO THIS TEST [facility] [place] - HX REVIEWED WITH PT AND CHART REVIEW - PT STATED HE HAD RECENT FALL AT HOME IN WHICH HE SUSTAINED MULTIPLE ABRASIONS TO COREY KNEES WELL FLUID FILLED BLISTERS TO BLE DUE TO EDEMA - PT REFUSING EVALUATION BY [facility] MD AT THIS TIME - RIGHT KNEE FULL THICNKESS SKIN TEAR 2 X 1.8 CM RED BASE NO EVIDENCE OF INFECTION - LEFT KNEE FULL THICNKESS SKIN TEARED ABRASION 4 X 3.5 CM CLEAN RED DRY FILL - NO EVIDENCE OF INFECTION, THOUGH PT C/O SEVERE TENDERNESS TO AREAS WHEN DRESSING STICKING - LWFT ANTERIOR LEG (3) PARTIAL THICNKESS VENOUS ULCERS 1 X 1 CM, 0.5 X 0.8 CM, AND 0.3 X 0.7 CM CLEAN PINK DERMAL FILL - RIGHT LEG PT PRESENTS WITH MULTIPLE (10) FLUID FILLED BULLOUS DUE TO VENOUS STASIS AND FLUID OVERLOAD - PT AGREED TO HAVE DR TIFFANY CARBAJAL - MESSAGE SENT TO TIFFANY - PT STATED HE HAS BEEN UNABLE TO APPLY COMPRESSION STOCKINGS DUE TO EDEMA AND SOB- REFUSED UNNA BOOTS, BUT AGREED TO LIGHT COMPRESSION WITH DAVI WRAPS RECOMMENDATION: CLEANSE LEG WOUNDS WITH NS FB ADAPTIC FB KERLIX AND DAVI WRAPS FROM BASE OF TOES TO TIBIAL TUBEROSITY DAILY - CLEANSE COREY KNEE WOUNDS WITH NS FB SILVADENE CREAM FB DPD DAILY PLEASE- PLEASE ENCOUARGE ELEVATION ABIVE HEART LEVEL
--- NOTE | 2017-03-26 15:48 | Event Note ---
Event Note Event Note: I was called by the nursing staff after the patient wanted to discuss about his CODE STATUS. He wanted his CODE STATUS to be changed from DO NOT RESUSCITATE/DO NOT INTUBATE to full code. He has full capacity to understand the meaning/ consequences of the change in his present condition, AND his prognosis. Accordingly, his CODE STATUS has now been changed to full code, resident and attending notified.
[2017-03-26 16:09] LABS: PT 22.7 SEC (9.4-12.5)
[2017-03-26 17:01] VITALS: BP 134/80
--- NOTE | 2017-03-26 20:42 | PN- Cardiology ---
Subjective Subjective: Slow clinical improvement. Edema improving. Objective Vital Signs and I&Os Vital Signs Date Time Temp Pulse Resp B/P B/P Pulse O2 O2 Flow FiO2 Mean Ox Delivery Rate 03/26 1701 98.0 80 22 134/80 96 03/26 1610 95 Nasal 1.5L Cannula 03/26 1600 97 Room Air 03/26 1032 118/74 03/26 1031 118/74 03/26 1031 118/74 03/26 0831 97.7 75 18 118/74 95 Nasal 1.5L Cannula 03/26 0825 96 Nasal 1.5L Cannula 03/26 0800 Nasal 1.5L Cannula 03/26 0000 Nasal 1.5L Cannula 03/25 2200 98.0 69 20 130/70 95 Nasal 1.5L Cannula Intake & Output 03/26 1600 03/26 0800 03/26 0000 03/25 1600 03/25 0800 03/25 0000 Intake Total 720 300 200 720 200 200 Output Total 1100 2899 121 4210 600 650 Balance -380 -900 -500 -980 -400 -450 Intake, Oral 720 300 200 720 200 200 Output, Urine 1100 3636 872 5507 600 650 Patient 319 lb 319 lb 317 lb 320 lb Weight Weight Chair scale Chair scale Estimated Measurement Method Current Medications: Current Medications Sig/Ann-Marie Start time Last Medication Dose Route Stop Time Status Admin Acetaminophen 650 MG Q6P PRN 03/26 0730 AC PO Acetaminophen 650 MG Q12P PRN 03/25 1013 DC PO Amiodarone HCl 200 MG DAILY 03/24 1459 AC 03/26 PO 1031 Aspirin Buffered 81 MG DAILY 03/24 1459 AC 03/26 PO 1031 Atorvastatin Calcium 40 MG 1700 03/24 1700 AC 03/26 PO 1603 Budesonide/ 2 PUF BID 03/24 2200 AC 03/26 Formoterol Fumarate INH 1031 Carvedilol 25 MG BID 03/24 1501 AC 03/26 PO 1031 Cholecalciferol 1,000 IU DAILY 03/25 1000 AC 03/26 PO 1032 Cyanocobalamin 1,000 MCG DAILY 03/25 1000 AC 03/26 PO 1032 Docusate Sodium 100 MG BID PRN 03/24 1530 AC 03/26 PO 1032 Fenofibrate 145 MG DAILY 03/25 1000 AC 03/26 PO 1032 Furosemide 40 MG 7:30 AM, & 4:30 PM 03/24 1630 AC 03/26 IV 1603 Gabapentin 600 MG Q8 03/24 1507 AC 03/26 PO 1430 Guaifenesin 600 MG Q12 03/24 1525 AC 03/26 PO 1031 Hydromorphone HCl 1 MG Q6P PRN 03/26 0730 AC IV Hydromorphone HCl 1 MG Q6P PRN 03/25 0830 DC IV Hydromorphone HCl 2 MG Q6P PRN 03/25 0045 AC 03/26 IV 1737 Insulin Aspart 0 TIDAC/HS 03/24 1700 AC 03/26 SC 1736 Insulin Detemir 30 UNITS BID 03/24 2200 AC 03/26 SC 1032 Ipratropium [place] 2.5 ML EVERY 4 HRS/AWAKE 03/25 0800 AC 03/26 INH 2010 Lisinopril 5 MG DAILY 03/24 1508 AC 03/26 PO 1032 Magnesium Chloride 64 MG BID 03/25 1000 AC 03/26 PO 1032 Magnesium Oxide 400 MG ONE ONE 03/26 0845 DC 03/26 PO 03/26 0846 1032 Methylprednisolone 40 MG DAILY 03/24 1515 DC 03/26 IV 1032 Naloxone HCl 0.4 MG Q 5 MINUTES X 3 DO.. 03/24 1530 AC IV Nicotine 21 MG DAILY 03/24 1508 03/26 TOP 1032 Patient Medication 1 ED .STK-MED ONE 03/26 1415 TX Teaching ED 03/26 1416 Polyethylene Glycol 17 GM AT BEDTIME PRN 03/24 1515 AC 03/26 PO 1219 Potassium Chloride 10 MEQ DAILY 03/25 1000 AC 03/26 PO 1031 Prednisone 40 MG DAILY 03/27 1000 AC PO Warfarin Sodium 6 MG COUMADIN 1700 ONE 03/26 1700 DC 03/26 PO 03/26 1701 1743 Results Last 48 Hrs of Labs/Mics: Laboratory Tests 03/26/17 1330: PT 22.7 H, INR 2.18 H 03/26/17 0620: Anion Gap 13, Estimated GFR > 60, BUN/Creatinine Ratio 36.4 H, Phosphorus 3.7, Magnesium 1.7, CBC w Diff NO MAN DIFF REQ, RBC 4.85, MCV 84.6, MCH 27.6, RDW 15.9 H, MPV 8.4, Gran % 81.3 H, Lymphocytes % 11.2 L, Monocytes % 5.8, Eosinophils % 1.5, Basophils % 0.2, Absolute Granulocytes 8.5 H, Absolute Lymphocytes 1.2, Absolute Monocytes 0.6, Absolute Eosinophils 0.2, Absolute Basophils 0, PUBS MCHC 32.6 L 03/25/17 0625: Anion Gap 12, Estimated GFR > 60, BUN/Creatinine Ratio 34.5 H, Magnesium 1.6, TSH 0.894, Free T4 2.58 H, PT 58.0 *H, INR 5.62 *H, CBC w Diff NO MAN DIFF REQ, RBC 4.71, MCV 83.8, MCH 27.5, RDW 15.9 H, MPV 8.4, Gran % 85.1 H, Lymphocytes % 9.1 L, Monocytes % 4.9, Eosinophils % 0.8, Basophils % 0.1, Absolute Granulocytes 7.7 H, Absolute Lymphocytes 0.8 L, Absolute Monocytes 0.4, Absolute Eosinophils 0.1, Absolute Basophils 0, PUBS MCHC 32.9 L 03/25/17 0000: Troponin I 0.23 *H Assessment/Plan Assessment/Plan Assessment: 1. LE edema with chronic venous stasis 2. Elevated troponins 3. Supratherapeutic INR 4. Atrial fibrillation 5. COPD exacerbation 6. TOMASZ 7. Obesity 8. Diabetes Recommendations: - Continue IV lasix BID - Maintain daily negative fluid balance of 7330-4377 cc - Await formal input from Pulmonary - Continue recommendations as per wound care.
[2017-03-27 00:17] VITALS: BP 130/76
--- NOTE | 2017-03-27 07:46 | PN- Housestaff ---
Subjective Follow-up For: CHF exacerbation Complaints: no complaints Tele-Events Since Last Visit: Atrial fibrillation, heart rate ranging from 65-85. Subjective: I followed up and examined the patient today. He is resting comfortably in his recliner, not in distress, doesn't offer any complaints, he thinks his legs are better than yesterday, vital signs stable, telemetry event noted as above, no other issues. Review of Systems Constitutional: Reports: no symptoms. Cardiovascular: Reports: see HPI, edema (better today). Objective Last 24 Hrs of Vital Signs/I&O Vital Signs Date Time Temp Pulse Resp B/P B/P Pulse O2 O2 Flow FiO2 Mean Ox Delivery Rate 03/27 0959 97.9 63 18 118/82 03/27 0959 97.9 63 18 118/82 03/27 0958 97.9 63 18 118/82 03/27 0800 92 Room Air Room Air 03/27 0755 97.9 63 18 118/82 97 Nasal 1.5L Cannula 03/27 0620 97 Nasal 1.5L Cannula 03/27 0017 98.0 86 16 130/76 97 Nasal 2.0L Cannula 03/27 0000 94 Nasal 1.5L Cannula 03/26 2209 89 120/72 03/26 1701 98.0 80 22 134/80 96 03/26 1610 95 Nasal 1.5L Cannula 03/26 1600 97 Room Air Intake & Output 03/27 1600 03/27 0800 03/27 0000 Intake Total 480 1020 Output Total 1400 2300 Balance -920 -1280 Intake, IV 20 Intake, Oral 480 1000 Number 0 Bowel Movements Output, Urine 1400 2300 Patient 146.057 kg Weight Weight Chair scale Measurement Method Physical Exam General Appearance: Alert, Oriented X3, Cooperative, No Acute Distress, morbid obesity Other Physical Findings: Head: Normocephalic, atraumatic Eyes: Pupils normal in size, regular, reacting to light and accommodation, EOM normal Ears: B/l normal on inspection Nose: Normal on inspection Throat/mouth: Moist mucosa Neck: Supple, full range of motion, no thyromegaly Heart: Regular rate, irregular rhythm Lung: Vesicular breath sound bilaterally with wheezes b/l and few crackles over the base b/l Abd: Soft, non-tender, no distention appreciated Back: Normal range of motion Extremities: B/l edema++, right leg has multiple blisters anteriorly with erythema, left leg and left knee has abrasions and is swollen and is oozing, left elbow has a scratch as well, and right forearm has a scratch over his lateral aspect about 15cm in length Neurologic: Alert, oriented x3, Cranial exam grossly intact, Speech is clear and coherent Skin: Warm and dry, except noted above Psychiatric: Calm, cooperative, coherant Current Medications: Current Medications Sig/Ann-Marie Start time Last Medication Dose Route Stop Time Status Admin Acetaminophen 650 MG Q6P PRN 03/26 0730 AC PO Amiodarone HCl 200 MG DAILY 03/24 1459 AC 03/27 PO 0959 Aspirin Buffered 81 MG DAILY 03/24 1459 AC 03/27 PO 0959 Atorvastatin Calcium 40 MG 1700 03/24 1700 AC 03/26 PO 1603 Budesonide/ 2 PUF BID 03/24 2200 AC 03/27 Formoterol Fumarate INH 0958 Carvedilol 25 MG BID 03/24 1501 AC 03/27 PO 0958 Cholecalciferol 1,000 IU DAILY 03/25 1000 AC 03/27 PO 0958 Cyanocobalamin 1,000 MCG DAILY 03/25 1000 AC 03/27 PO 0958 Docusate Sodium 100 MG BID PRN 03/24 1530 AC 03/26 PO 1032 Fenofibrate 145 MG DAILY 03/25 1000 AC 03/27 PO 1000 Furosemide 40 MG 7:30 AM, & 4:30 PM 03/24 1630 AC 03/27 IV 0644 Gabapentin 600 MG Q8 03/24 1507 AC 03/27 PO 0551 Guaifenesin 600 MG Q12 03/24 1525 AC 03/27 PO 0958 Hydromorphone HCl 1 MG Q6P PRN 03/26 0730 AC IV Hydromorphone HCl 2 MG Q6P PRN 03/25 0045 AC 03/27 IV 0535 Insulin Aspart 0 TIDAC/HS 03/24 1700 AC 03/27 SC 0803 Insulin Detemir 30 UNITS BID 03/24 2200 AC 03/27 SC 1000 Ipratropium [place] 2.5 ML EVERY 4 HRS/AWAKE 03/25 0800 AC 03/27 INH 0618 Lisinopril 5 MG DAILY 03/24 1508 AC 03/27 PO 0959 Magnesium Chloride 64 MG BID 03/25 1000 AC 03/27 PO 1000 Methylprednisolone 40 MG DAILY 03/24 1515 DC 03/26 IV 1032 Naloxone HCl 0.4 MG Q 5 MINUTES X 3 DO.. 03/24 1530 AC IV Nicotine 21 MG DAILY 03/24 1508 03/27 TOP 1003 Patient Medication 1 ED .STK-MED ONE 03/26 1415 DC Teaching ED 03/26 1416 Polyethylene Glycol 17 GM AT BEDTIME PRN 03/24 1515 AC 03/26 PO 1219 Potassium Chloride 10 MEQ DAILY 03/25 1000 AC 03/27 PO 1000 Prednisone 40 MG DAILY 03/27 1000 AC 03/27 PO 0958 Warfarin Sodium 1 MG .STK-MED ONE 03/26 1744 DC PO 03/26 1745 Warfarin Sodium 5 MG .STK-MED ONE 03/26 1744 DC PO 03/26 1745 Warfarin Sodium 6 MG COUMADIN 1700 ONE 03/26 1700 DC 03/26 PO 03/26 1701 1743 Last 24 Hrs of Lab/[place] Results Last 24 Hrs of Labs/Mics: Laboratory Tests 03/27/17 0555: Anion Gap 13, Estimated GFR > 60, BUN/Creatinine Ratio 44.0 H, Magnesium 1.7, PT 18.2 H, INR 1.74 H 03/26/17 1330: PT 22.7 H, INR 2.18 H Microbiology 03/26 2200 LOWER RESP: Respiratory Culture - RES 03/26 2200 LOWER RESP: Gram Stain - RES Assessment/Plan Assessment: 61 [id number] with past medical history of congestive heart failure (EF 55-60% , Dec 2015), CAD/MA with stent placement in 2003, COPD baseline with oxygen, TOMASZ (1.5L/min at daytime, 2L/min during night), non-compliance with BiPAP, atrial fibrillation on Coumadin, HTN, chronic venous insuffeicency with bruises over his b/l legs, diabetes mellitus taking insulin, degenerative joint disease, was refered from Dr Cosby's clinic after visting him for a mechanical fall injury and persistent cough despite on oral antibiotics. He is currently being managed in the telemetry floor for the following issues: #Acute on chronic diastolic congestive heart failure, HFpEF Patient is having CHF exacerbation. Elevated levels of troponin is likely due to type II MA (demand ischemia). -Continue telemetry monitoring -Monitor vitals closely, watch for arrhythmia, change in vital status -Continue diuresis, currently neg balance -2.5L -Strict input output measurements, daily weight measurements #Possible Pneumonia Patient had symptoms of cough with productive green sputum, fever, chills, respiratory distress, which is suggestive of pneumonia. Of note, he was on antibiotics for more than 2 weeks prior to admission, but this has now resolved and he could not produce any sputum even to give sample. LRC cancelled. #Atrial fibrillation on Coumadin, initially supratherapeutic Patient has history of atrial fibrillation, currently rate controlled, takes warfarin at home and his INR was above 10 upon admission, so was not continued with Coumadin yesterday. Today his INR is 1.74, NOT therapeutic, so 10mg home dose dosed today, will keep monitoring, and dose Coumadin tomorrow as well. #Wound, 2/2 mechanical fall injury -Continue wound care -Maintain fall precautions #COPD -Total respiratory care/nebulizations -Continue Symbicort -Mucinex added twice a day -Maintain SPO2 above 92%, currently receiving oxygen via nasal cannula -Follow-up sputum/blood culture -PO Prednisone from today, in rapid taper per Pulm consultation. 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 #Diabetes Mellitus -Patient is on diabetic/CHF diet, with regular blood sugar monitoring, and on insulin coverage #Hypomagnesemia (1.7 today) -Repleted for now. Will monitor #Diet: Diabetic/CHF diet #DVT ppx: Currently supratherapeutic INR, while on Coumadin #Pain management: Will place him on his chronic/home pain meds. #Code status: FULL CODE Problem List: 1. CHF exacerbation Pain Ratin Pain Location: legs Pain Goal: Pain 4 or less Pain Plan: prn ordered, is working well per patient Tomorrow's Labs & Rationales: INR, BEP, Mg
[2017-03-27 07:55] VITALS: BP 118/82
[2017-03-27 08:23] LABS: PT 18.2 SEC (9.4-12.5)
--- NOTE | 2017-03-27 08:38 | PN- Student ---
Subjective Subjective: This morning Mr. Johnson is feeling better. He reports that his breathing has greatly improved on the steroid therapy and also reports that while there still is a bit of a lag between doses of pain medication he feels that his pain is being controlled pretty well. He is still diuresing well on the lasix. His only complaint was difficulty sleeping that was attributed to the room mates alarms. Objective Objective: Vital Signs Date Time Temp Pulse Resp B/P B/P Pulse O2 O2 Flow FiO2 Mean Ox Delivery Rate 03/27 0755 97.9 63 18 118/82 97 Nasal 1.5L Cannula 03/27 0620 97 Nasal 1.5L Cannula 03/27 0017 98.0 86 16 130/76 97 Nasal 2.0L Cannula 03/27 0000 94 Nasal 1.5L Cannula 03/26 2209 89 120/72 03/26 1701 98.0 80 22 134/80 96 03/26 1610 95 Nasal 1.5L Cannula 03/26 1600 97 Room Air 03/26 1032 118/74 03/26 1031 118/74 03/26 1031 118/74 Intake & Output 03/27 1600 03/27 0800 03/27 0000 Intake Total 480 1020 Output Total 1400 2300 Balance -920 -1280 Intake, IV 20 Intake, Oral 480 1000 Number 0 Bowel Movements Output, Urine 1400 2300 Patient 322 lb Weight Weight Chair scale Measurement Method Telemetry: atrial fibrillation 65-85 no events Labs: glucose- 245 @ 0605, INR- 1.74 Notes: - switch solumedrol from IV to PO - switched from DNR/DNI to full code yesterday - Cosby recommendations: - continue lasix BID - target negative fluid balance of 1180-2435 cc per day - maintain wound care PE: General appearance- alert and oriented x3, seated comfortably in chair, no apparent distress HEENT- atraumatic, RENNY, mucus membranes moist and pink Neck- supple, no JVD, no thyromegaly or lymphadenopathy, trachea is midline CV- S1 and S2 heard, no murmurs rubs or gallops noted on auscultation Chest- wheezes are markedly better today, nearly clear to auscultation. good air movement Abd- soft, non-tender to palpation Skin- warm and well perfused, multiple blisters on anterior legs bilaterally with oozing abrasions on both lower extremities. Also has scratch on right arm and left elbow abrasion. Bandages noted over both lower extremities which are clean. Ext- 2+ pitting edema bilaterally on Lower extremity. edema is improving, as is leg pain and ambulation. Results Results: Laboratory Tests 03/27/17 0555: Anion Gap 13, Estimated GFR > 60, BUN/Creatinine Ratio 44.0 H, Magnesium 1.7, PT 18.2 H, INR 1.74 H 03/26/17 1330: PT 22.7 H, INR 2.18 H 03/26/17 0620: Anion Gap 13, Estimated GFR > 60, BUN/Creatinine Ratio 36.4 H, Phosphorus 3.7, Magnesium 1.7, CBC w Diff NO MAN DIFF REQ, RBC 4.85, MCV 84.6, MCH 27.6, RDW 15.9 H, MPV 8.4, Gran % 81.3 H, Lymphocytes % 11.2 L, Monocytes % 5.8, Eosinophils % 1.5, Basophils % 0.2, Absolute Granulocytes 8.5 H, Absolute Lymphocytes 1.2, Absolute Monocytes 0.6, Absolute Eosinophils 0.2, Absolute Basophils 0, PUBS MCHC 32.6 L 03/25/17 0625: Anion Gap 12, Estimated GFR > 60, BUN/Creatinine Ratio 34.5 H, Magnesium 1.6, TSH 0.894, Free T4 2.58 H, PT 58.0 *H, INR 5.62 *H, CBC w Diff NO MAN DIFF REQ, RBC 4.71, MCV 83.8, MCH 27.5, RDW 15.9 H, MPV 8.4, Gran % 85.1 H, Lymphocytes % 9.1 L, Monocytes % 4.9, Eosinophils % 0.8, Basophils % 0.1, Absolute Granulocytes 7.7 H, Absolute Lymphocytes 0.8 L, Absolute Monocytes 0.4, Absolute Eosinophils 0.1, Absolute Basophils 0, PUBS MCHC 32.9 L 03/25/17 0000: Troponin I 0.23 *H 03/24/17 1700: Troponin I 0.36 *H Microbiology 03/26 2200 LOWER RESP: Respiratory Culture - RES 03/26 2200 LOWER RESP: Gram Stain - RES 03/25 829 LOWER RESP: Respiratory Culture - CAN Cancelled: SPECIMEN NOT RECEIVED IN LABORATORY 04/26 0829 LOWER RESP: Gram Stain - CAN Cancelled: SPECIMEN NOT RECEIVED IN LABORATORY 03/24 1706 BLOOD: Blood Culture - RES 03/24 1706 BLOOD: Blood Culture - RES Assessment/Plan Assessment: Mr. Johnson is a 61 yo M with a PMH of A-fib, CHF, CAD, HTN, Hyperlipidemia, an ID (stent in 2003), COPD (on 2L NC at home), Bronchitis, and diabetes mellitus. He was admitted to telemetry, from Dr. Cosby's office visit, on 03/24 with worsening dyspnea, lower extremity pain, and weeping sores on both lower extremities. He fell at home 3 days ago while trying to go to the bathroom and was unable to get up for several hours. He sustained numerous abrasions on both lower extemities while trying to get off of the floor which have been weeping fluid. He described his initial leg pain as 17/15 on a pain scale and was 10/15 on admission. During the admission he also reported a cough that has been productive of green phlegm plugs. He denied any chest pain but did state that he had chills the night that he fell. Today patient seems to have improved well since yesterday. He is walking around better and breathing better. He states that his pain is being well controlled for the time being. He is diuresing well but still has some prominent edema of his lower extremity. Respiratory culture grew mixed jocelyne so at this moment no infection is surmised. As of now no problems are seen in his recovery. Current Medications Sig/Ann-Marie Start time Last Medication Dose Route Stop Time Status Admin Acetaminophen 650 MG Q6P PRN 03/26 0730 AC PO Amiodarone HCl 200 MG DAILY 03/24 1459 AC 03/27 PO 0959 Aspirin Buffered 81 MG DAILY 03/24 1459 AC 03/27 PO 0959 Atorvastatin Calcium 40 MG 1700 03/24 1700 AC 03/26 PO 1603 Budesonide/ 2 PUF BID 03/24 2200 AC 03/27 Formoterol Fumarate INH 0958 Carvedilol 25 MG BID 03/24 1501 AC 03/27 PO 0958 Cholecalciferol 1,000 IU DAILY 03/25 1000 AC 03/27 PO 0958 Cyanocobalamin 1,000 MCG DAILY 03/25 1000 AC 03/27 PO 0958 Docusate Sodium 100 MG BID PRN 03/24 1530 AC 03/26 PO 1032 Fenofibrate 145 MG DAILY 03/25 1000 AC 03/27 PO 1000 Furosemide 40 MG 7:30 AM, & 4:30 PM 03/24 1630 AC 03/27 IV 0644 Gabapentin 600 MG Q8 03/24 1507 AC 03/27 PO 1359 Guaifenesin 600 MG Q12 03/24 1525 AC 03/27 PO 0958 Hydromorphone HCl 1 MG Q6P PRN 03/26 0730 AC IV Hydromorphone HCl 2 MG Q6P PRN 03/25 0045 AC 03/27 IV 1138 Insulin Aspart 0 TIDAC/HS 03/24 1700 AC 03/27 SC 1148 Insulin Detemir 30 UNITS BID 03/24 2200 AC 03/27 SC 1000 Ipratropium [place] 2.5 ML EVERY 4 HRS/AWAKE 03/25 0800 AC 03/27 INH 1114 Lisinopril 5 MG DAILY 03/24 1508 AC 03/27 PO 0959 Magnesium Chloride 64 MG BID 03/25 1000 AC 03/27 PO 1000 Magnesium Oxide 400 MG ONE 03/27 1130 DC 03/27 PO 03/27 1131 1138 Methylprednisolone 40 MG DAILY 03/24 1515 DC 03/26 IV 1032 Naloxone HCl 0.4 MG Q 5 MINUTES X 3 DO.. 03/24 1530 AC IV Nicotine 21 MG DAILY 03/24 1508 AC 03/27 TOP 1003 Polyethylene Glycol 17 GM AT BEDTIME PRN 03/24 1515 AC 03/26 PO 1219 Potassium Chloride 10 MEQ DAILY 03/25 1000 AC 03/27 PO 1000 Prednisone 40 MG DAILY 03/27 1000 AC 03/27 PO 0958 Warfarin Sodium 10 MG COUMADIN 1700 03/27 1700 AC PO 03/27 1701 Warfarin Sodium 1 MG .STK-MED ONE 03/26 1744 DC PO 03/26 1745 Warfarin Sodium 5 MG .STK-MED ONE 03/26 1744 DC PO 03/26 1745 Warfarin Sodium 6 MG COUMADIN 1700 03/26 1700 DC 03/26 PO 03/26 1701 1743 Plan: Will continue to diurese patient and monitor electrolytes as well as treat his wounds. Will also follow Cardio Recommendations as listed below. IV steroids will be switched to PO today. Recommendations: * We'll continue him on furosemide 40 mg IV BID for the next 2 days * Continue to monitor I&O for next negative fluid balance. Daily weights * Continue to monitor renal function and potassium. Supplement potassium for target greater than 4.0. Follow-up magnesium and phosphorus levels Q24hrs * Follow-up will consult for lower extremity ulcerations * Lower extremity ulcerations could also be secondary to chronic steroid use * COnsider rechecking TFTs as well * Elevated troponins likely secondary to type II in setting of no EKG changes. Continue carvedilol 25 mg BID, lisinopril 5 mg daily * Pulmonology consult for possible underlying COPD exacerbation. Steroid taper per Anselmo Esparza MD recommendations * Supratherapeutic INR likely secondary to recent Augmentin use. We'll continue to hold Coumadin for target INR between 2 and 3 * Diabetic diet with insulin sliding scale Problem List: 1. Wounds- continue with wound care protocol. 1. LE edema with chronic venous stasis- continue IV lasix 40mg BID and monitor I&Os 2. Elevated troponins- continue to monitor labs, latest show downward trend 3. Supratherapeutic INR- restart coumadin 10 mg PO daily to target of 2-3 ( today INR was 1.74) 4. Atrial fibrillation- continue aspirin, hold coumadin and dose for target INR of 2-3 5. COPD exacerbation- will switch 40 mg IV methylprednisolone to 40 mg prednisone PO and continue home medications. Continue oxygen therapy at 1.5L NC during day and 2.0L at night. 6. Obesity- Educate patient on healthy diet strategies. 7. Diabetes- Diabetic Diet. continue to monitor glucose and continue home medication
--- NOTE | 2017-03-27 10:19 | PN- Pulmonary ---
Subjective HPI/Critical Care Issues: Patient was seen and examined today. Patient alert, awake, oriented 3. Patient stated that his breathing status improved comparing with yesterday, no more wheezing, patient is still complaining cough with some productive sputum he denies fever, chills, chest pain. Objective Current Medications: Current Medications Sig/Ann-Marie Start time Last Medication Dose Route Stop Time Status Admin Acetaminophen 650 MG Q6P PRN 03/26 0730 AC PO Amiodarone HCl 200 MG DAILY 03/24 1459 AC 03/27 PO 0959 Aspirin Buffered 81 MG DAILY 03/24 1459 AC 03/27 PO 0959 Atorvastatin Calcium 40 MG 1700 03/24 1700 AC 03/26 PO 1603 Budesonide/ 2 PUF BID 03/24 2200 AC 03/27 Formoterol Fumarate INH 0958 Carvedilol 25 MG BID 03/24 1501 AC 03/27 PO 0958 Cholecalciferol 1,000 IU DAILY 03/25 1000 AC 03/27 PO 0958 Cyanocobalamin 1,000 MCG DAILY 03/25 1000 AC 03/27 PO 0958 Docusate Sodium 100 MG BID PRN 03/24 1530 AC 03/26 PO 1032 Fenofibrate 145 MG DAILY 03/25 1000 AC 03/27 PO 1000 Furosemide 40 MG 7:30 AM, & 4:30 PM 03/24 1630 AC 03/27 IV 0644 Gabapentin 600 MG Q8 03/24 1507 AC 03/27 PO 0551 Guaifenesin 600 MG Q12 03/24 1525 AC 03/27 PO 0958 Hydromorphone HCl 1 MG Q6P PRN 03/26 0730 AC IV Hydromorphone HCl 2 MG Q6P PRN 03/25 0045 AC 03/27 IV 0535 Insulin Aspart 0 TIDAC/HS 03/24 1700 AC 03/27 SC 0803 Insulin Detemir 30 UNITS BID 03/24 2200 AC 03/27 SC 1000 Ipratropium [place] 2.5 ML EVERY 4 HRS/AWAKE 03/25 0800 AC 03/27 INH 1114 Lisinopril 5 MG DAILY 03/24 1508 AC 03/27 PO 0959 Magnesium Chloride 64 MG BID 03/25 1000 AC 03/27 PO 1000 Methylprednisolone 40 MG DAILY 03/24 1515 DC 03/26 IV 1032 Naloxone HCl 0.4 MG Q 5 MINUTES X 3 DO.. 03/24 1530 AC IV Nicotine 21 MG DAILY 03/24 1508 AC 03/27 TOP 1003 Patient Medication 1 ED .STK-MED ONE 03/26 1415 DC Teaching ED 03/26 1416 Polyethylene Glycol 17 GM AT BEDTIME PRN 03/24 1515 AC 03/26 PO 1219 Potassium Chloride 10 MEQ DAILY 03/25 1000 AC 03/27 PO 1000 Prednisone 40 MG DAILY 03/27 1000 AC 03/27 PO 0958 Warfarin Sodium 1 MG .STK-MED ONE 03/26 1744 DC PO 03/26 1745 Warfarin Sodium 5 MG .STK-MED ONE 03/26 1744 DC PO 03/26 1745 Warfarin Sodium 6 MG COUMADIN 1700 ONE 03/26 1700 DC 03/26 PO 03/26 1701 1743 Vital Signs & I&O Last 24 Hrs of Vitals and I&O: Vital Signs Date Time Temp Pulse Resp B/P B/P Pulse O2 O2 Flow FiO2 Mean Ox Delivery Rate 03/27 0959 97.9 63 18 118/82 03/27 0959 97.9 63 18 118/82 03/27 0958 97.9 63 18 118/82 03/27 0800 92 Room Air Room Air 03/27 0755 97.9 63 18 118/82 97 Nasal 1.5L Cannula 03/27 0620 97 Nasal 1.5L Cannula 03/27 0017 98.0 86 16 130/76 97 Nasal 2.0L Cannula 03/27 0000 94 Nasal 1.5L Cannula 03/26 2209 89 120/72 03/26 1701 98.0 80 22 134/80 96 03/26 1610 95 Nasal 1.5L Cannula 03/26 1600 97 Room Air Intake & Output 03/27 1600 03/27 0800 03/27 0000 Intake Total 480 1020 Output Total 1400 2300 Balance -920 -1280 Intake, IV 20 Intake, Oral 480 1000 Number 0 Bowel Movements Output, Urine 1400 2300 Patient 322 lb Weight Weight Chair scale Measurement Method Exam General Appearance: alert, awake, obese Head: normal appearance Neck: normal inspection Respiratory: normal breath sounds, chest non-tender, lungs clear, decreased breath sounds, no wheezing Cardiovascular: edema, irregularly irregular Abdomen: normal bowel sounds, soft, non-tender, obese Extremities: bilateral lower extremity pitting edema up to the knee level. , multiple wound dressing noted, clean. Results Last 24 Hrs of Lab Results: Laboratory Tests 03/27/17 0555: Anion Gap 13, Estimated GFR > 60, BUN/Creatinine Ratio 44.0 H, Magnesium 1.7, PT 18.2 H, INR 1.74 H 03/26/17 1330: PT 22.7 H, INR 2.18 H Impression/Plan Impression/Plan Impression/Plan: Impression/Plan: 1. congestive heart failure exacerbation. 2. History of COPD. 3. Supratherapeutic INR 4. Diabetes. 5. Chronic venous stasis. Recommendations: * Continue Mucinex 600 mg BID. * Continue by mouth prednisone 40 mg with fast taper. * Continue TR for neb treatments. * Oxygen to maintain saturations greater than 92%. * Continue Symbicort 2 inhalations every 12 hours. * Monitor blood sugars while on steroids. * Diuresis per cardiology. * Follow-up sputum culture results. * Continue all supportive care.
--- NOTE | 2017-03-27 14:27 | NUR ---
WOUND CARE: PT STATED A POOR TOLERANCE TO DAVI WRAPS - TUBIGRIPS APPLIED AND TOLRATED WELL - PT EDUCATED RE: IMPORTANCE OF ELEVATION AND EDEMA CONTROL - STATED AN UNDERSTANDING, ALTHOUGH CONT TO REFUSE SLEEPING IN BED RECOMMENDATION: CONT CURRENT WOUND CARE, BUT REPLACE DAVI WRAPS WITH TUBRIGRIP SIZE F FROM BASE OF TOES TO TIBIAL TUBEROSITY
[2017-03-27 16:45] VITALS: BP 118/78
--- NOTE | 2017-03-27 16:58 | PN- Cardiology ---
Subjective Subjective: Slow clinical improvement with slowly improving edema and respiratory status. Objective Vital Signs and I&Os Vital Signs Date Time Temp Pulse Resp B/P B/P Pulse O2 O2 Flow FiO2 Mean Ox Delivery Rate 03/27 1645 98.3 78 18 118/78 96 03/27 1124 95 Nasal 1.5L Cannula 03/27 0959 97.9 63 18 118/82 03/27 0959 97.9 63 18 118/82 03/27 0958 97.9 63 18 118/82 03/27 0800 92 Room Air Room Air 03/27 0755 97.9 63 18 118/82 97 Nasal 1.5L Cannula 03/27 0620 97 Nasal 1.5L Cannula 03/27 0017 98.0 86 16 130/76 97 Nasal 2.0L Cannula 03/27 0000 94 Nasal 1.5L Cannula 03/26 2209 89 120/72 03/26 1701 98.0 80 22 134/80 96 Intake & Output 03/27 1600 03/27 0800 03/27 0000 03/26 1600 03/26 0800 03/26 0000 Intake Total 134 346 3062 720 300 200 Output Total 1700 1400 2300 1100 1200 700 Balance -1020 -920 -1280 -380 -900 -500 Intake, IV 20 Intake, Oral 534 384 5882 720 300 200 Number 1 0 Bowel Movements Output, Urine 1700 1400 2300 1100 1200 700 Patient 322 lb 319 lb 319 lb Weight Weight Chair scale Chair scale Measurement Method Current Medications: Current Medications Sig/Ann-Marie Start time Last Medication Dose Route Stop Time Status Admin Acetaminophen 650 MG Q6P PRN 03/26 0730 AC PO Amiodarone HCl 200 MG DAILY 03/24 1459 AC 03/27 PO 0959 Aspirin Buffered 81 MG DAILY 03/24 1459 AC 03/27 PO 0959 Atorvastatin Calcium 40 MG 1700 03/24 1700 AC 03/27 PO 1652 Budesonide/ 2 PUF BID 03/24 2200 AC 03/27 Formoterol Fumarate INH 0958 Carvedilol 25 MG BID 03/24 1501 AC 03/27 PO 0958 Cholecalciferol 1,000 IU DAILY 03/25 1000 AC 03/27 PO 0958 Cyanocobalamin 1,000 MCG DAILY 03/25 1000 AC 03/27 PO 0958 Docusate Sodium 100 MG BID PRN 03/24 1530 AC 03/26 PO 1032 Fenofibrate 145 MG DAILY 03/25 1000 AC 03/27 PO 1000 Furosemide 40 MG 7:30 AM, & 4:30 PM 03/24 1630 AC 03/27 IV 1602 Gabapentin 600 MG Q8 03/24 1507 AC 03/27 PO 1359 Guaifenesin 600 MG Q12 03/24 1525 AC 03/27 PO 0958 Hydromorphone HCl 1 MG Q6P PRN 03/26 0730 AC IV Hydromorphone HCl 2 MG Q6P PRN 03/25 0045 AC 03/27 IV 1138 Insulin Aspart 0 TIDAC/HS 03/24 1700 AC 03/27 SC 1653 Insulin Detemir 30 UNITS BID 03/24 2200 AC 03/27 SC 1000 Ipratropium [place] 2.5 ML EVERY 4 HRS/AWAKE 03/25 0800 AC 03/27 INH 1601 Lisinopril 5 MG DAILY 03/24 1508 AC 03/27 PO 0959 Magnesium Chloride 64 MG BID 03/25 1000 AC 03/27 PO 1000 Magnesium Oxide 400 MG ONE ONE 03/27 1130 DC 03/27 PO 03/27 1131 1138 Methylprednisolone 40 MG DAILY 03/24 1515 PR 03/26 IV 1032 Naloxone HCl 0.4 MG Q 5 MINUTES X 3 DO.. 03/24 1530 AC IV Nicotine 21 MG DAILY 03/24 1508 AC 03/27 TOP 1003 Polyethylene Glycol 17 GM AT BEDTIME PRN 03/24 1515 AC 03/26 PO 1219 Potassium Chloride 10 MEQ DAILY 03/25 1000 AC 03/27 PO 1000 Prednisone 40 MG DAILY 03/27 1000 AC 03/27 PO 0958 Warfarin Sodium 10 MG COUMADIN 1700 ONE 03/27 1700 AC 03/27 PO 03/27 1701 1652 Warfarin Sodium 1 MG .STK-MED ONE 03/26 1744 DC PO 03/26 1745 Warfarin Sodium 5 MG .STK-MED ONE 03/26 1744 DC PO 03/26 1745 Warfarin Sodium 6 MG COUMADIN 1700 ONE 03/26 1700 DC 03/26 PO 03/26 1701 1743 Results Last 48 Hrs of Labs/Mics: Laboratory Tests 03/27/17 0555: Anion Gap 13, Estimated GFR > 60, BUN/Creatinine Ratio 44.0 H, Magnesium 1.7, PT 18.2 H, INR 1.74 H 03/26/17 1330: PT 22.7 H, INR 2.18 H 03/26/17 0620: Anion Gap 13, Estimated GFR > 60, BUN/Creatinine Ratio 36.4 H, Phosphorus 3.7, Magnesium 1.7, CBC w Diff NO MAN DIFF REQ, RBC 4.85, MCV 84.6, MCH 27.6, RDW 15.9 H, MPV 8.4, Gran % 81.3 H, Lymphocytes % 11.2 L, Monocytes % 5.8, Eosinophils % 1.5, Basophils % 0.2, Absolute Granulocytes 8.5 H, Absolute Lymphocytes 1.2, Absolute Monocytes 0.6, Absolute Eosinophils 0.2, Absolute Basophils 0, PUBS MCHC 32.6 L Assessment/Plan Assessment/Plan Assessment: 1. LE edema with chronic venous stasis 2. Elevated troponins 3. Supratherapeutic INR 4. Atrial fibrillation 5. COPD exacerbation 6. TOMASZ 7. Obesity 8. Diabetes Recommendations: - Continue IV lasix BID over the weekend with close monitoring of renal function and I/Os - Maintain daily negative fluid balance of 3022-0151 cc - Continue as per Dr. Esparza - Continue recommendations as per wound care. Continue telemetry? Yes
[2017-03-28 00:47] VITALS: BP 142/80
[2017-03-28 08:00] VITALS: BP 150/90
[2017-03-28 08:25] LABS: PT 20.7 SEC (9.4-12.5)
--- NOTE | 2017-03-28 09:12 | PN- Housestaff ---
Subjective Follow-up For: CHF exacerbation on Lasix Elevated troponin COPD Atrial fibrillation Complaints: no complaints Tele-Events Since Last Visit: Atrial fibrillation, atrial flutter, heart rate 74-92, multiple PVCs. Subjective: The patient was comfortable this morning. But stated that patient's adequately controlled with current regimen, but would have pain occasionally. Vitals remained stable overnight. He was afebrile. Currently on 1.5 L oxygen. Review of Systems Constitutional: Reports: see HPI. Objective Last 24 Hrs of Vital Signs/I&O Vital Signs Date Time Temp Pulse Resp B/P B/P Pulse O2 O2 Flow FiO2 Mean Ox Delivery Rate 03/28 0047 98.1 84 18 142/80 95 Room Air 03/28 0000 Nasal 1.5L Cannula 03/28 0000 96 Room Air 03/27 2232 102 142/80 03/27 2026 97 Nasal 1.5L Cannula 03/27 1645 98.3 78 18 118/78 96 03/27 1600 94 Room Air Room Air 03/27 1124 95 Nasal 1.5L Cannula 03/27 0959 97.9 63 18 118/82 03/27 0959 97.9 63 18 118/82 03/27 0958 97.9 63 18 118/82 Intake & Output 03/28 1600 03/28 0800 03/28 0000 Intake Total 400 1080 Output Total 825 3025 Balance -425 -1945 Intake, Oral 400 1080 Output, Urine 825 3025 Patient 316 lb Weight Weight Standing Scale Measurement Method Physical Exam General Appearance: No Acute Distress Other Physical Findings: General Exam: AAOx3, No acute distress, Skin: No rashes, no breakdown HEENT: PERRLA, EOMI Neck: Supple, No JVD No cervical lymphadenopathy CVS: Reg Rate, Normal S1,S2, No MGR Resp: Normal air entry, no ronchi/rales Abdomen: Soft, No tenderness, Normal Bowel Sounds Neuro: Normal Speech, Strength 5/5 b/l x 4 extremities, Sensation intact, CN III -XII NL, Reflexes 2+ Extremities: No cyanosis, pedal edema 2+, Current Medications: Current Medications Sig/Ann-Marie Start time Last Medication Dose Route Stop Time Status Admin Acetaminophen 650 MG Q6P PRN 03/26 0730 AC PO Amiodarone HCl 200 MG DAILY 03/24 1459 AC 03/27 PO 0959 Aspirin Buffered 81 MG DAILY 03/24 1459 AC 03/27 PO 0959 Atorvastatin Calcium 40 MG 1700 03/24 1700 AC 03/27 PO 1652 Budesonide/ 2 PUF BID 03/24 2200 AC 03/27 Formoterol Fumarate INH 2235 Carvedilol 25 MG BID 03/24 1501 AC 03/27 PO 2232 Cholecalciferol 1,000 IU DAILY 03/25 1000 AC 03/27 PO 0958 Cyanocobalamin 1,000 MCG DAILY 03/25 1000 AC 03/27 PO 0958 Docusate Sodium 100 MG BID PRN 03/24 1530 AC 03/26 PO 1032 Fenofibrate 145 MG DAILY 03/25 1000 AC 03/27 PO 1000 Furosemide 40 MG 7:30 AM, & 4:30 PM 03/24 1630 AC 03/28 IV 0806 Gabapentin 600 MG Q8 03/24 1507 AC 03/28 PO 0746 Guaifenesin 600 MG Q12 03/24 1525 AC 03/27 PO 2233 Hydromorphone HCl 1 MG Q6P PRN 03/26 0730 AC IV Hydromorphone HCl 2 MG Q6P PRN 03/25 0045 AC 03/28 IV 0346 Insulin Aspart 0 TIDAC/HS 03/24 1700 AC 03/28 SC 0839 Insulin Detemir 30 UNITS BID 03/24 2200 03/27 SC 2147 Ipratropium [place] 2.5 ML EVERY 4 HRS/AWAKE 03/25 0800 AC 03/28 INH 0757 Lisinopril 5 MG DAILY 03/24 1508 AC 03/27 PO 0959 Magnesium Chloride 64 MG BID 03/25 1000 AC 03/27 PO 2233 Magnesium Oxide 400 MG ONE ONE 03/27 1130 DC 03/27 PO 03/27 1131 1138 Naloxone HCl 0.4 MG Q 5 MINUTES X 3 DO.. 03/24 1530 AC IV Nicotine 21 MG DAILY 03/24 1508 AC 03/27 TOP 1003 Polyethylene Glycol 17 GM AT BEDTIME PRN 03/24 1515 AC 03/26 PO 1219 Potassium Chloride 10 MEQ DAILY 03/25 1000 AC 03/27 PO 1000 Prednisone 10 MG 1000 04/02 1000 AC PO 04/03 1001 Prednisone 20 MG 1000 03/31 1000 AC PO 04/01 1001 Prednisone 30 MG 1000 03/29 1000 AC PO 03/30 1001 Prednisone 40 MG DAILY 03/28 1000 DC PO 04/04 0959 Prednisone 40 MG 1000 03/28 1000 AC PO 03/28 1001 Prednisone 40 MG DAILY 03/27 1000 DC 03/27 PO 0958 Warfarin Sodium 10 MG COUMADIN 1700 ONE 03/27 1700 DC 03/27 PO 03/27 1701 1652 Last 24 Hrs of Lab/[place] Results Last 24 Hrs of Labs/Mics: Laboratory Tests 03/28/17 0635: Anion Gap 11, Estimated GFR > 60, BUN/Creatinine Ratio 40.9 H, Magnesium 1.7, PT 20.7 H, INR 1.98 H Assessment/Plan Assessment: 61 [id number] with past medical history of congestive heart failure (EF 55-60% , Dec 2015), CAD/TX with stent placement in 2003, COPD baseline with oxygen, TOMASZ (1.5L/min at daytime, 2L/min during night), non-compliance with BiPAP, atrial fibrillation on Coumadin, HTN, chronic venous insuffeicency with bruises over his b/l legs, diabetes mellitus taking insulin, degenerative joint disease, was refered from Dr Cosby's clinic after visting him for a mechanical fall injury and persistent cough despite on oral antibiotics. He is currently being managed in the telemetry floor for the following issues: #Acute on chronic diastolic congestive heart failure, HFpEF CHF exacerbation. Elevated levels of troponin is likely due to type II TX ( demand ischemia). -Continue telemetry monitoring -Monitor vitals closely, watch for arrhythmia, change in vital status -Continue diuresis, currently neg balance -2.5L -Strict input output measurements, daily weight measurements #Possible Pneumonia Patient had symptoms of cough with productive green sputum, fever, chills, respiratory distress, which is suggestive of pneumonia. Of note, he was on antibiotics for more than 2 weeks prior to admission, but this has now resolved and he could not produce any sputum even to give sample. #Atrial fibrillation on Coumadin, initially supratherapeutic Patient has history of atrial fibrillation, currently rate controlled, takes warfarin at home and his INR was above 10 upon admission, so was not continued with Coumadin yesterday. INR 1.98, dose coumadin today. #Wound, 2/2 mechanical fall injury -Continue wound care -Maintain fall precautions #COPD -Total respiratory care/nebulizations -Continue Symbicort -Mucinex added twice a day -Maintain SPO2 above 92%, currently receiving oxygen via nasal cannula -Follow-up sputum/blood culture -PO prednisone taper. 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 Will monitor #Diet: Diabetic/CHF diet #DVT ppx: Currently supratherapeutic INR, while on Coumadin #Pain management: Will place him on his chronic/home pain meds. #Code status: FULL CODE Problem List: 1. Diabetes mellitus 2. Supratherapeutic INR 3. Fall Pain Ratin Pain Location: Left lower extremity Pain Goal: Pain 4 or less Pain Plan: IV Dilaudid Tomorrow's Labs & Rationales: C BC BEP INR
--- NOTE | 2017-03-28 11:47 | PN- Pulmonary ---
Subjective HPI/Critical Care Issues: Slow clinical improvement with slowly improving edema and respiratory status. Objective Current Medications: Current Medications Sig/Ann-Marie Start time Last Medication Dose Route Stop Time Status Admin Acetaminophen 650 MG Q6P PRN 03/26 0730 AC PO Amiodarone HCl 200 MG DAILY 03/24 1459 AC 03/28 PO 0954 Aspirin Buffered 81 MG DAILY 03/24 1459 AC 03/28 PO 0953 Atorvastatin Calcium 40 MG 1700 03/24 1700 AC 03/27 PO 1652 Budesonide/ 2 PUF BID 03/24 2200 AC 03/28 Formoterol Fumarate INH 0951 Carvedilol 25 MG BID 03/24 1501 AC 03/28 PO 0954 Cholecalciferol 1,000 IU DAILY 03/25 1000 AC 03/28 PO 0953 Cyanocobalamin 1,000 MCG DAILY 03/25 1000 AC 03/28 PO 0954 Docusate Sodium 100 MG BID PRN 03/24 1530 AC 03/28 PO 0953 Fenofibrate 145 MG DAILY 03/25 1000 AC 03/28 PO 0954 Furosemide 40 MG 7:30 AM, & 4:30 PM 03/24 1630 AC 03/28 IV 0806 Gabapentin 600 MG Q8 03/24 1507 AC 03/28 PO 0746 Guaifenesin 600 MG Q12 03/24 1525 AC 03/28 PO 0953 Hydromorphone HCl 1 MG Q6P PRN 03/26 0730 AC IV Hydromorphone HCl 2 MG Q6P PRN 03/25 0045 AC 03/28 IV 0957 Insulin Aspart 0 TIDAC/HS 03/24 1700 AC 03/28 SC 0839 Insulin Detemir 30 UNITS BID 03/24 2200 AC 03/28 SC 0952 Ipratropium [place] 2.5 ML EVERY 4 HRS/AWAKE 03/25 0800 AC 03/28 INH 1140 Lisinopril 5 MG DAILY 03/24 1508 AC 03/28 PO 0954 Magnesium Chloride 64 MG BID 03/25 1000 AC 03/28 PO 0953 Naloxone HCl 0.4 MG Q 5 MINUTES X 3 DO.. 03/24 1530 AC IV Nicotine 21 MG DAILY 03/24 1508 AC 03/28 TOP 0954 Polyethylene Glycol 17 GM AT BEDTIME PRN 03/24 1515 AC 03/26 PO 1219 Potassium Chloride 10 MEQ DAILY 03/25 1000 AC 03/28 PO 0953 Prednisone 10 MG 1000 04/02 1000 AC PO 04/03 1001 Prednisone 20 MG 1000 03/31 1000 AC PO 04/01 1001 Prednisone 30 MG 1000 03/29 1000 AC PO 03/30 1001 Prednisone 40 MG DAILY 03/28 1000 DC PO 04/04 0959 Prednisone 40 MG 1000 03/28 1000 DC 03/28 PO 03/28 1001 0953 Prednisone 40 MG DAILY 03/27 1000 DC 03/27 PO 0958 Warfarin Sodium 7.5 MG COUMADIN 1700 ONE 03/28 1700 AC PO 03/28 1701 Warfarin Sodium 10 MG COUMADIN 1700 ONE 03/27 1700 DC 03/27 PO 03/27 1701 1652 Vital Signs & I&O Last 24 Hrs of Vitals and I&O: Vital Signs Date Time Temp Pulse Resp B/P B/P Pulse O2 O2 Flow FiO2 Mean Ox Delivery Rate 03/28 0954 98.2 75 20 150/90 03/28 0954 98.2 75 20 150/90 03/28 0954 98.2 75 20 150/90 03/28 0800 95 Room Air Room Air 03/28 0800 98.2 75 20 150/90 96 Nasal 2.0L Cannula 03/28 0047 98.1 84 18 142/80 95 Room Air 03/28 0000 Nasal 1.5L Cannula 03/28 0000 96 Room Air 03/27 2232 102 142/80 03/27 2026 97 Nasal 1.5L Cannula 03/27 1645 98.3 78 18 118/78 96 03/27 1600 94 Room Air Room Air Intake & Output 03/28 1600 03/28 0800 03/28 0000 Intake Total 400 1080 Output Total 825 3025 Balance -425 -1945 Intake, Oral 400 1080 Output, Urine 825 3025 Patient 316 lb Weight Weight Standing Scale Measurement Method Laboratory Tests 03/28 03/27 03/26 0635 0555 1330 Chemistry Sodium (137 - 145 mmol/L) 133 L 134 L Potassium (3.5 - 5.1 mmol/L) 4.5 4.7 Chloride (98 - 107 mmol/L) 94 L 94 L Carbon Dioxide (22 - 30 mmol/L) 28 26 Anion Gap (5 - 16) 11 13 BUN (9 - 20 mg/dL) 45 H 44 H Creatinine (0.7 - 1.2 mg/dL) 1.1 1.0 Estimated GFR (>60 ml/min) > 60 > 60 BUN/Creatinine Ratio (7 - 25 %) 40.9 H 44.0 H Magnesium (1.6 - 2.3 mg/dL) 1.7 1.7 Coagulation PT (9.4 - 12.5 SEC) 20.7 H 18.2 H 22.7 H INR (0.90 - 1.17) 1.98 H 1.74 H 2.18 H Microbiology Date/Time Procedure - Status Source Growth 03/26 2200 Respiratory Culture - RES LOWER RESP 03/26 2200 Gram Stain - RES LOWER RESP Impression/Plan Impression/Plan Impression/Plan: Exam General Appearance: alert, awake, obese Head: normal appearance Neck: normal inspection Respiratory: normal breath sounds, chest non-tender, lungs clear, decreased breath sounds, no wheezing Cardiovascular: edema, irregularly irregular Abdomen: normal bowel sounds, soft, non-tender, obese Extremities: bilateral lower extremity pitting edema up to the knee level. , multiple wound dressing noted, clean. IMPRESSION 1. congestive heart failure exacerbation. undergoing diuresis 2. History of COPD. no sig active infection 3. Supratherapeutic INR resolved 4. Diabetes. 5. Chronic venous stasis. with ulcers 6. OHV Recommendations: * Continue Mucinex 600 mg BID. * steroid taper * Continue TRC for neb treatments. * Oxygen to maintain saturations greater than 92%. * Continue Symbicort 2 inhalations every 12 hours. * Monitor blood sugars while on steroids. * Diuresis per cardiology. To continue lasix * Follow-up sputum culture results. * Continue all supportive care.
--- NOTE | 2017-03-28 14:45 | PN- Cardiology ---
Subjective Subjective: * Breathing is a bit worse today with a congested cough. No chest discomfort, lightheadedness or palpitations. * atrial fibrillation with controlled heart rate * INR 1.98 * chest X-ray negative for infiltrate Objective Vital Signs and I&Os Vital Signs Date Time Temp Pulse Resp B/P B/P Pulse O2 O2 Flow FiO2 Mean Ox Delivery Rate 03/28 1140 97 Nasal 1.5L Cannula 03/28 0954 98.2 75 20 150/90 03/28 0954 98.2 75 20 150/90 03/28 0954 98.2 75 20 150/90 03/28 0800 95 Room Air Room Air 03/28 0800 98.2 75 20 150/90 96 Nasal 2.0L Cannula 03/28 0047 98.1 84 18 142/80 95 Room Air 03/28 0000 Nasal 1.5L Cannula 03/28 0000 96 Room Air 03/27 2232 102 142/80 03/27 2026 97 Nasal 1.5L Cannula 03/27 1645 98.3 78 18 118/78 96 03/27 1600 94 Room Air Room Air Intake & Output 03/28 1600 03/28 0800 03/28 0000 03/27 1600 03/27 0800 03/27 0000 Intake Total 154 191 5451 686 214 3146 Output Total 2357 825 3025 1700 1400 2300 Balance -1877 -425 -1945 -1020 -920 -1280 Intake, IV 20 Intake, Oral 115 760 4814 332 011 0393 Number 0 1 0 Bowel Movements Output, Urine 2357 825 3025 1700 1400 2300 Patient 316 lb 322 lb Weight Weight Standing Scale Chair scale Measurement Method Physical Exam: General: WD/obese male in NAD; alert and oriented x 3 Neck: no obvious JVD Heart: irregularly irregular Lungs: scant crackles at the right base Extremities: 2+ bilateral leg edema Assessment/Plan Assessment/Plan * Leg edema persists. Increase Lasix to 40mg IV TID while monitoring his BUN, creatinine and potassium * atrial fibrillation: well controlled heart rate on current medications. Keep INR 2-2.5. Continue telemetry? Yes
[2017-03-28 18:19] VITALS: BP 146/86
[2017-03-29 00:08] VITALS: BP 130/60
--- NOTE | 2017-03-29 06:46 | PN- Pulmonary ---
Subjective HPI/Critical Care Issues: Up and walking about early this morning patient continues to diurese had significant urine output since admission afebrile Does complaining of wheezing in the leg continues to be on 1.5 L of oxygen Continues to be on warfarin atrial fibrillation heart rate control. Objective Current Medications: Current Medications Sig/Ann-Marie Start time Last Medication Dose Route Stop Time Status Admin Acetaminophen 650 MG Q6P PRN 03/26 0730 AC PO Amiodarone HCl 200 MG DAILY 03/24 1459 AC 03/28 PO 0954 Aspirin Buffered 81 MG DAILY 03/24 1459 AC 03/28 PO 0953 Atorvastatin Calcium 40 MG 1700 03/24 1700 AC 03/28 PO 1645 Budesonide/ 2 PUF BID 03/24 2200 AC 03/28 Formoterol Fumarate INH 2231 Carvedilol 25 MG BID 03/24 1501 AC 03/28 PO 2230 Cholecalciferol 1,000 IU DAILY 03/25 1000 AC 03/28 PO 0953 Cyanocobalamin 1,000 MCG DAILY 03/25 1000 AC 03/28 PO 0954 Docusate Sodium 100 MG BID PRN 03/24 1530 AC 03/28 PO 0953 Fenofibrate 145 MG DAILY 03/25 1000 AC 03/28 PO 0954 Furosemide 40 MG TID 03/28 1600 AC 03/28 IV 2230 Furosemide 40 MG 7:30 AM, & 4:30 PM 03/24 1630 DC 03/28 IV 0806 Gabapentin 600 MG Q8 03/24 1507 AC 03/29 PO 0607 Guaifenesin 600 MG Q12 03/24 1525 AC 03/28 PO 2230 Hydromorphone HCl 1 MG Q6P PRN 03/26 0730 AC IV Hydromorphone HCl 2 MG Q6P PRN 03/25 0045 AC 03/29 IV 0415 Insulin Aspart 0 TIDAC/HS 03/24 1700 AC 03/28 SC 2222 Insulin Detemir 30 UNITS BID 03/24 2200 AC 03/28 SC 2223 Ipratropium [place] 2.5 ML EVERY 4 HRS/AWAKE 03/25 0800 AC 03/29 INH 0603 Lisinopril 5 MG DAILY 03/24 1508 AC 03/28 PO 0954 Magnesium Chloride 64 MG BID 03/25 1000 AC 03/28 PO 2230 Naloxone HCl 0.4 MG Q 5 MINUTES X 3 DO.. 03/24 1530 AC IV Nicotine 21 MG DAILY 03/24 1508 AC 03/28 TOP 0954 Polyethylene Glycol 17 GM AT BEDTIME PRN 03/24 1515 AC 03/26 PO 1219 Potassium Chloride 10 MEQ DAILY 03/25 1000 AC 03/28 PO 0953 Prednisone 10 MG 1000 04/02 1000 AC PO 04/03 1001 Prednisone 20 MG 1000 03/31 1000 AC PO 04/01 1001 Prednisone 30 MG 1000 03/29 1000 AC PO 03/30 1001 Prednisone 40 MG DAILY 03/28 1000 DC PO 04/04 0959 Prednisone 40 MG 1000 03/28 1000 DC 03/28 PO 03/28 1001 0953 Warfarin Sodium 7.5 MG COUMADIN 1700 ONE 03/28 1700 DC 03/28 PO 03/28 1701 1646 Vital Signs & I&O Last 24 Hrs of Vitals and I&O: Vital Signs Date Time Temp Pulse Resp B/P B/P Pulse O2 O2 Flow FiO2 Mean Ox Delivery Rate 03/29 0616 97 Nasal 1.5L Cannula 03/29 0008 98.7 74 18 130/60 97 Nasal 1.5L Cannula 03/29 0000 95 Nasal 1.5L Cannula 03/28 2230 78 140/76 03/28 1819 98.6 93 18 146/86 97 03/28 1638 95 Nasal 1.5L Cannula 03/28 1600 Nasal 1.5L Cannula 03/28 1140 97 Nasal 1.5L Cannula 03/28 0954 98.2 75 20 150/90 03/28 0954 98.2 75 20 150/90 03/28 0954 98.2 75 20 150/90 03/28 0800 95 Room Air Room Air 03/28 0800 98.2 75 20 150/90 96 Nasal 2.0L Cannula Intake & Output 03/29 0800 03/29 0000 03/28 1600 Intake Total 600 1020 480 Output Total 1100 2700 2657 Balance -500 -1680 -2177 Intake, IV 20 Intake, Oral 600 1000 480 Number 0 Bowel Movements Output, Urine 1100 2700 2657 Laboratory Tests 03/28 0635 Chemistry Sodium (137 - 145 mmol/L) 133 L Potassium (3.5 - 5.1 mmol/L) 4.5 Chloride (98 - 107 mmol/L) 94 L Carbon Dioxide (22 - 30 mmol/L) 28 Anion Gap (5 - 16) 11 BUN (9 - 20 mg/dL) 45 H Creatinine (0.7 - 1.2 mg/dL) 1.1 Estimated GFR (>60 ml/min) > 60 BUN/Creatinine Ratio (7 - 25 %) 40.9 H Magnesium (1.6 - 2.3 mg/dL) 1.7 Coagulation PT (9.4 - 12.5 SEC) 20.7 H INR (0.90 - 1.17) 1.98 H Microbiology Date/Time Procedure - Status Source Growth 03/26 2200 Respiratory Culture - COMP LOWER RESP 03/26 2200 Gram Stain - COMP LOWER RESP Impression/Plan Impression/Plan Impression/Plan: Exam General Appearance: alert, awake, obese Head: normal appearance Neck: normal inspection Respiratory: normal breath sounds, chest non-tender, lungs clear, decreased breath sounds, no wheezing Cardiovascular: edema, irregularly irregular Abdomen: normal bowel sounds, soft, non-tender, obese Extremities: bilateral lower extremity pitting edema up to the knee level. , multiple wound dressing noted, clean. IMPRESSION 1. congestive heart failure exacerbation. undergoing diuresis 2. History of COPD. no sig active infection 3. Supratherapeutic INR resolved 4. Diabetes. 5. Chronic venous stasis. with ulcers 6. OHV Recommendations: * Continue Mucinex 600 mg BID. * steroid taper to continue * Continue TRC for neb treatments. * Oxygen to maintain saturations greater than 92%. * Continue Symbicort 2 inhalations every 12 hours. * Monitor blood sugars while on steroids. * Diuresis per cardiology. To continue lasix * Follow-up sputum culture results. * Continue all supportive care. Increase activity Check labs daily
[2017-03-29 08:14] LABS: ABSOLUTE BASOPHIL COUNT 0 /CUMM (0.0-0.2); ABSOLUTE EOSINOPHIL COUNT 0.3 /CUMM (0.0-0.7); ABSOLUTE GRANULOCYTE CT 10.6 /CUMM (1.4-6.5); ABSOLUTE LYMPH COUNT 1.7 /CUMM (1.2-3.4); ABSOLUTE MONOCYTE COUNT 0.8 /CUMM (0.10-0.60); BASOPHIL % 0.2 % (0.0-2.0); EOSINOPHIL % 2.1 % (0-5); GRANULOCYTE % 79.3 % (42.2-75.2); HEMATOCRIT 40.8 % (42-52); MEAN CORPUSCULAR HGB 27.7 PG (27.0-31.0); MEAN CORPUSCULAR HGB CONC 32.9 G/DL (33.0-37.0); MEAN CORPUSCULAR VOLUME 84.4 FL (80.0-94.0); MEAN PLATELET VOLUME 8.1 FL (7.4-10.4); PLATELET COUNT 344 /CUMM (130-400); RBC DISTRIBUTION WIDTH 16.4 % (11.5-14.5); RED BLOOD CELL CT 4.84 /CUMM (4.70-6.10); WHITE BLOOD CELL COUNT 13.4 /CUMM (4.8-10.8)
[2017-03-29 08:21] LABS: PT 26.3 SEC (9.4-12.5)
[2017-03-29 08:53] VITALS: BP 140/80
--- NOTE | 2017-03-29 09:07 | PN- Housestaff ---
Subjective Follow-up For: CHF exacerbation Atrial fibrillation COPD Tele-Events Since Last Visit: Atrial fibrillation HR 78-107 Subjective: No acute events overnight. Patient seen and examined this morning. Shortness of breath has improved but he complains of chest congestion and cough. He remains on 1.5 L NC. He has been ambulating around the unit today. He denies chest pain, palpitations or lightheadedness. Review of Systems Constitutional: Reports: see HPI. Objective Last 24 Hrs of Vital Signs/I&O Vital Signs Date Time Temp Pulse Resp B/P B/P Pulse O2 O2 Flow FiO2 Mean Ox Delivery Rate 03/29 2249 98.4 93 18 130/66 95 Room Air 03/29 2128 93 130/66 03/29 1718 98.6 87 18 140/82 95 03/29 1659 95 Nasal 1.5L Cannula 03/29 1600 95 Room Air Room Air 03/29 1127 94 Nasal 1.5L Cannula 03/29 0945 98.2 93 20 140/80 03/29 0944 93 140/80 03/29 0944 98.2 93 20 140/80 03/29 0853 98.2 93 20 140/80 95 Nasal 2.0L Cannula 03/29 0800 94 Room Air Room Air 03/29 0616 97 Nasal 1.5L Cannula 03/29 0008 98.7 74 18 130/60 97 Nasal 1.5L Cannula 03/29 0000 95 Nasal 1.5L Cannula Intake & Output 03/29 1600 03/29 0800 03/29 0000 Intake Total 881 559 6018 Output Total 1700 1100 2700 Balance -1200 -500 -1680 Intake, IV 20 Intake, Oral 119 878 2236 Number 1 Bowel Movements Output, Urine 1700 1100 2700 Physical Exam General Appearance: Alert, Oriented X3, No Acute Distress HEENT: Atraumatic, Mucous Membr. moist/pink Neck: Supple Cardiovascular: Irregularly Irregular Lungs: Diminished Breath Sounds Abdomen: Soft, No Tenderness, Positive Bowel Sounds Extremities: No Clubbing, No Cyanosis, Bilateral Lower Extremities with 2+ Pitting Edema to Knees and Skin Changes Consistent with Chronic Venous Stasis Current Medications: Current Medications Sig/Ann-Marie Start time Last Medication Dose Route Stop Time Status Admin Acetaminophen 650 MG Q6P PRN 03/26 0730 AC PO Amiodarone HCl 200 MG DAILY 03/24 1459 AC 03/29 PO 0945 Aspirin Buffered 81 MG DAILY 03/24 1459 AC 03/29 PO 0944 Atorvastatin Calcium 40 MG 1700 03/24 1700 AC 03/29 PO 1655 Budesonide/ 2 PUF BID 03/24 2200 AC 03/29 Formoterol Fumarate INH 2129 Carvedilol 25 MG BID 03/24 1501 AC 03/29 PO 2128 Cholecalciferol 1,000 IU DAILY 03/25 1000 AC 03/29 PO 0944 Cyanocobalamin 1,000 MCG DAILY 03/25 1000 AC 03/29 PO 0944 Docusate Sodium 100 MG BID PRN 03/24 1530 AC 03/29 PO 0944 Fenofibrate 145 MG DAILY 03/25 1000 AC 03/29 PO 0944 Furosemide 80 MG BID 03/29 2200 AC 03/29 IV 2128 Furosemide 40 MG TID 03/28 1600 DC 03/29 IV 1656 Gabapentin 600 MG Q8 03/24 1507 AC 03/29 PO 2127 Guaifenesin 600 MG Q12 03/24 1525 AC 03/29 PO 2127 Hydromorphone HCl 1 MG Q6P PRN 03/26 0730 AC IV Hydromorphone HCl 2 MG Q6P PRN 03/25 0045 AC 03/29 IV 2225 Insulin Aspart 0 TIDAC/HS 03/24 1700 AC 03/29 SC 212 Insulin Detemir 30 UNITS BID 03/24 2200 AC 03/29 SC 2129 Ipratropium [place] 2.5 ML EVERY 4 HRS/AWAKE 03/25 0800 AC 03/29 INH 2100 Lisinopril 5 MG DAILY 03/24 1508 AC 03/29 PO 0944 Magnesium Chloride 64 MG BID 03/25 1000 AC 03/29 PO 2127 Naloxone HCl 0.4 MG Q 5 MINUTES X 3 DO.. 03/24 1530 AC IV Nicotine 21 MG DAILY 03/24 1508 AC 03/29 TOP 0945 Polyethylene Glycol 17 GM AT BEDTIME PRN 03/24 1515 AC 03/26 PO 1219 Potassium Chloride 10 MEQ DAILY 03/25 1000 AC 03/29 PO 0944 Prednisone 10 MG 1000 04/02 1000 AC PO 04/03 1001 Prednisone 20 MG 1000 03/31 1000 AC PO 04/01 1001 Prednisone 30 MG 1000 03/29 1000 AC 03/29 PO 03/30 1001 0945 Warfarin Sodium 5 MG COUMADIN 1700 ONE 03/29 1700 DC 03/29 PO 03/29 1701 1707 Last 24 Hrs of Lab/[place] Results Last 24 Hrs of Labs/Mics: Laboratory Tests 03/29/17 0610: Anion Gap 11, Estimated GFR > 60, BUN/Creatinine Ratio 41.7 H, PT 26.3 H, INR 2.53 H, CBC w Diff NO MAN DIFF REQ, RBC 4.84, MCV 84.4, MCH 27.7, RDW 16.4 H, MPV 8.1, Gran % 79.3 H, Lymphocytes % 12.4 L, Monocytes % 6.0, Eosinophils % 2.1, Basophils % 0.2, Absolute Granulocytes 10.6 H, Absolute Lymphocytes 1.7, Absolute Monocytes 0.8 H, Absolute Eosinophils 0.3, Absolute Basophils 0, PUBS MCHC 32.9 L Assessment/Plan Assessment: 61 y/o M with PMHx of COPD and TOMASZ on home oxygen (1.5 L at daytime and 2 L at night), HFpEF and atrial fibrillation on warfarin who is admitted for acute on chronic diastolic CHF. #Acute on chronic HFpEF: Persistent leg edema despite significant diuresis since admission. * Continue telemetry monitoring. * Increase Lasix to 80 mg IV BID. * Monitor I/Os and daily BMPs. #Atrial fibrillation: Heart rate well-controlled. INR 2.53 today. * Continue to monitor INR daily and dose warfarin accordingly to keep INR 2-2.5. * Administer 5 mg of warfarin this evening. #COPD: Sputum culture with mixed jocelyne. * Continue Mucinex 600 mg PO BID. * Continue steroid taper. * TRC/nebs. * Provide supplemental oxygen to keep SpO2 > 92%. * Continue Symbicort 2 puffs BID. #Insulin-dependent T2DM: * Monitor blood sugars closely while on steroids. * Continue Levemir 30 units SQ BID. * Accu-checks and high-dose sliding scale Novolog TIDAC. Diet: Consistent Carbohydrate 3 with 2 g Na Restriction DVT PPx: Warfarin and ALPs CODE: FULL Problem List: 1. Insulin dependent type 2 diabetes mellitus 2. Atrial fibrillation 3. COPD (chronic obstructive pulmonary disease) 4. (HFpEF) heart failure with preserved ejection fraction 5. Acute diastolic (congestive) heart failure Pain Ratin Pain Location: Legs Pain Goal: Pain 4 or less Pain Plan: Dilaudid 2 mg IV Q6H PRN for severe pain (scale 7-10) Tylenol 650 mg PO Q6H PRN for mild pain (scale 1-3) Tomorrow's Labs & Rationales: CBC to monitor WBC in the setting of leukocytosis BMP to monitor lytes and kidney function in the setting of IV diuresis INR in the setting of warfarin therapy
--- NOTE | 2017-03-29 16:50 | PN- Cardiology ---
Subjective Subjective: * Breathing continues to be suboptimal with a congested cough. No chest discomfort, lightheadedness or palpitations. * atrial fibrillation with controlled heart rate * INR 2.53 * chest X-ray negative for infiltrate * creatinine is 1.2 Objective Vital Signs and I&Os Vital Signs Date Time Temp Pulse Resp B/P B/P Pulse O2 O2 Flow FiO2 Mean Ox Delivery Rate 03/29 1127 94 Nasal 1.5L Cannula 03/29 0945 98.2 93 20 140/80 03/29 0944 93 140/80 03/29 0944 98.2 93 20 140/80 03/29 0853 98.2 93 20 140/80 95 Nasal 2.0L Cannula 03/29 0800 94 Room Air Room Air 03/29 0616 97 Nasal 1.5L Cannula 03/29 0008 98.7 74 18 130/60 97 Nasal 1.5L Cannula 03/29 0000 95 Nasal 1.5L Cannula 03/28 2230 78 140/76 03/28 1819 98.6 93 18 146/86 97 Intake & Output 03/29 1600 03/29 0800 03/29 0000 03/28 1600 03/28 0800 03/28 0000 Intake Total 305 838 2629 538 438 9346 Output Total 1700 1100 2700 2657 825 3025 Balance -1200 -500 -1680 -2177 -425 -1945 Intake, IV 20 Intake, Oral 912 042 8793 359 209 8419 Number 1 0 Bowel Movements Output, Urine 1700 1100 2700 2657 825 3025 Patient 316 lb Weight Weight Standing Scale Measurement Method Physical Exam: General: WD/obese male in NAD; alert and oriented x 3 Neck: no obvious JVD Heart: irregularly irregular Lungs: scant crackles at the right base Extremities: 2+ bilateral leg edema Assessment/Plan Assessment/Plan * Leg edema persists. Increase Lasix to 80mg IV BID while monitoring his BUN, creatinine and potassium * atrial fibrillation: well controlled heart rate on current medications. Keep INR 2-2.5. Continue telemetry? Yes
[2017-03-29 17:18] VITALS: BP 140/82
[2017-03-29 22:49] VITALS: BP 130/66
[2017-03-30 08:16] LABS: PT 27.9 SEC (9.4-12.5)
[2017-03-30 08:22] VITALS: BP 122/74
--- NOTE | 2017-03-30 08:40 | PN- Pulmonary ---
Subjective HPI/Critical Care Issues: Patient is awake and alert. He continues to complain of exertional dyspnea. He has an ongoing cough which is productive of sputum however this has improved. He continues to be concerned over his ongoing lower extremity pitting edema, but feels the diuresis is working. He offers no new complaints today. Objective Current Medications: Current Medications Sig/Ann-Marie Start time Last Medication Dose Route Stop Time Status Admin Acetaminophen 650 MG Q6P PRN 03/26 0730 AC PO Amiodarone HCl 200 MG DAILY 03/24 1459 AC 03/29 PO 0945 Aspirin Buffered 81 MG DAILY 03/24 1459 AC 03/29 PO 0944 Atorvastatin Calcium 40 MG 1700 03/24 1700 AC 03/29 PO 1655 Budesonide/ 2 PUF BID 03/24 2200 AC 03/29 Formoterol Fumarate INH 2128 Carvedilol 25 MG BID 03/24 1501 AC 03/29 PO 2128 Cholecalciferol 1,000 IU DAILY 03/25 1000 AC 03/29 PO 0944 Cyanocobalamin 1,000 MCG DAILY 03/25 1000 AC 03/29 PO 0944 Docusate Sodium 100 MG BID PRN 03/24 1530 AC 03/29 PO 0944 Fenofibrate 145 MG DAILY 03/25 1000 AC 03/29 PO 0944 Furosemide 80 MG BID 03/29 2200 AC 03/29 IV 2128 Furosemide 40 MG TID 03/28 1600 DC 03/29 IV 1656 Gabapentin 600 MG Q8 03/24 1507 AC 03/30 PO 0641 Guaifenesin 600 MG Q12 03/24 1525 AC 03/29 PO 2127 Hydromorphone HCl 1 MG Q6P PRN 03/26 0730 AC IV Hydromorphone HCl 2 MG Q6P PRN 03/25 0045 AC 03/30 IV 0346 Insulin Aspart 0 TIDAC/HS 03/24 1700 AC 03/30 SC 0819 Insulin Detemir 30 UNITS BID 03/24 2200 AC 03/29 SC 2129 Ipratropium [place] 2.5 ML EVERY 4 HRS/AWAKE 03/25 0800 AC 03/30 INH 0803 Lisinopril 5 MG DAILY 03/24 1508 AC 03/29 PO 0944 Magnesium Chloride 64 MG BID 03/25 1000 AC 03/29 PO 2127 Naloxone HCl 0.4 MG Q 5 MINUTES X 3 DO.. 03/24 1530 AC IV Nicotine 21 MG DAILY 03/24 1508 AC 03/29 TOP 0945 Polyethylene Glycol 17 GM AT BEDTIME PRN 03/24 1515 AC 03/26 PO 1219 Potassium Chloride 10 MEQ DAILY 03/25 1000 AC 03/29 PO 0944 Prednisone 10 MG 1000 04/02 1000 AC PO 04/03 1001 Prednisone 20 MG 1000 03/31 1000 AC PO 04/01 1001 Prednisone 30 MG 1000 03/29 1000 AC 03/29 PO 03/30 1001 0945 Warfarin Sodium 5 MG COUMADIN 1700 ONE 03/29 1700 DC 03/29 PO 03/29 1701 1707 Vital Signs & I&O Last 24 Hrs of Vitals and I&O: Vital Signs Date Time Temp Pulse Resp B/P B/P Pulse O2 O2 Flow FiO2 Mean Ox Delivery Rate 03/30 08 97.8 82 18 122/74 98 Nasal 1.5L Cannula 03/30 0808 94 Room Air 03/30 0800 98 Nasal 1.5L Cannula 03/30 0000 Nasal 2.0L Cannula 03/29 2249 98.4 93 18 130/66 95 Room Air 03/29 2128 93 130/66 03/29 1718 98.6 87 18 140/82 95 03/29 1659 95 Nasal 1.5L Cannula 03/29 1600 95 Room Air Room Air 03/29 1127 94 Nasal 1.5L Cannula 03/29 0945 98.2 93 20 140/80 03/29 0944 93 140/80 03/29 0944 98.2 93 20 140/80 03/29 0853 98.2 93 20 140/80 95 Nasal 2.0L Cannula Intake & Output 03/30 1600 03/30 0800 05 0000 Intake Total 400 960 Output Total 1150 2200 Balance -750 -1240 Intake, Oral 400 960 Output, Urine 1150 2200 Patient 315 lb Weight Weight Standing Scale Measurement Method Exam General Appearance: alert, awake, obese Head: normal appearance Neck: supple Respiratory: decreased breath sounds, no wheezing Cardiovascular: edema, irregularly irregular Abdomen: normal bowel sounds, soft, non-tender, obese Extremities: bilateral lower extremity pitting edema up to the knee level, multiple wound dressings Results Last 24 Hrs of Lab Results: Laboratory Tests 03/30/17 0625: Sodium Pending, Potassium Pending, Chloride Pending, Carbon Dioxide Pending, Anion Gap Pending, BUN Pending, Creatinine Pending, BUN/Creatinine Ratio Pending , PT 27.9 H, INR 2.68 H, CBC w Diff Pending, WBC Pending, RBC Pending, Hgb Pending, Hct Pending, MCV Pending, MCH Pending, RDW Pending, Plt Count Pending, MPV Pending, PUBS MCHC Pending Impression/Plan Impression/Plan Impression/Plan: 1. Congestive heart failure exacerbation. 2. AECOPD. No evidence of pneumonia. Sputum culture is growing mixed jocelyne only. 3. Supratherapeutic INR - resolved. 4. Diabetes. 5. Chronic venous stasis. Recommendations: * Continue Mucinex 600 mg BID. * Complete pednisone taper. * Continue TRC for neb treatments. * Oxygen to maintain saturations greater than 92%. * Continue Symbicort 2 inhalations every 12 hours. * Monitor blood sugars while on steroids. * Diuresis per cardiology. * Continue with leg elevation. * Consider pulmonary rehabilitation/short-term rehabilitation. * Continue all supportive care.
[2017-03-30 08:55] LABS: ABSOLUTE BASOPHIL COUNT 0 /CUMM (0.0-0.2); ABSOLUTE EOSINOPHIL COUNT 0.4 /CUMM (0.0-0.7); ABSOLUTE GRANULOCYTE CT 9.8 /CUMM (1.4-6.5); ABSOLUTE LYMPH COUNT 1.7 /CUMM (1.2-3.4); ABSOLUTE MONOCYTE COUNT 0.7 /CUMM (0.10-0.60); BASOPHIL % 0.3 % (0.0-2.0); GRANULOCYTE % 77.9 % (42.2-75.2); HEMATOCRIT 38.3 % (42-52); MEAN CORPUSCULAR HGB 27.9 PG (27.0-31.0); MEAN CORPUSCULAR HGB CONC 33.2 G/DL (33.0-37.0); MEAN CORPUSCULAR VOLUME 84.1 FL (80.0-94.0); MEAN PLATELET VOLUME 8.4 FL (7.4-10.4); PLATELET COUNT 303 /CUMM (130-400); RBC DISTRIBUTION WIDTH 15.9 % (11.5-14.5); RED BLOOD CELL CT 4.56 /CUMM (4.70-6.10); WHITE BLOOD CELL COUNT 12.6 /CUMM (4.8-10.8)
--- NOTE | 2017-03-30 09:07 | PN- Housestaff ---
See Addendum Subjective Follow-up For: CHF exacerbation Complaints: pain meds not under control Tele-Events Since Last Visit: Atrial fibrillation with heart rate between 70s and 80s. Subjective: I followed up and examined the patient today. He is resting comfortably in his recliner, not in distress, with only complaint of pain not completely under control with back of his right leg very sensitive to touch, he thinks his CHF is much under control today, vital signs stable, telemetry event as noted above, no other issues. Review of Systems Constitutional: Reports: no symptoms. Objective Last 24 Hrs of Vital Signs/I&O Vital Signs Date Time Temp Pulse Resp B/P B/P Pulse O2 O2 Flow FiO2 Mean Ox Delivery Rate 03/30 1020 97.8 82 18 122/74 03/30 1020 97.8 82 122/74 03/30 1019 82 122/74 03/30 0822 97.8 82 18 122/74 98 Nasal 1.5L Cannula 03/30 0808 94 Room Air 03/30 0800 98 Nasal 1.5L Cannula 03/30 0000 Nasal 2.0L Cannula 03/29 2249 98.4 93 18 130/66 95 Room Air 03/29 2128 93 130/66 03/29 1718 98.6 87 18 140/82 95 03/29 1659 95 Nasal 1.5L Cannula 03/29 1600 95 Room Air Room Air Intake & Output 03/30 1600 03/30 0800 05 0000 Intake Total 480 400 960 Output Total 1600 1150 2200 Balance -1120 -750 -1240 Intake, Oral 480 400 960 Number 0 Bowel Movements Output, Urine 1600 1150 2200 Patient 142.882 kg Weight Weight Standing Scale Measurement Method Physical Exam General Appearance: Alert, Oriented X3, Cooperative, No Acute Distress, morbidly obese Other Physical Findings: Head: Normocephalic, atraumatic Eyes: Pupils normal in size, regular, reacting to light and accommodation, EOM normal Ears: B/l normal on inspection Nose: Normal on inspection Throat/mouth: Moist mucosa Neck: Supple, full range of motion, no thyromegaly Heart: Regular rate, irregular rhythm Lung: Vesicular breath sound bilaterally with wheezes b/l and few crackles over the base b/l Abd: Soft, non-tender, no distention appreciated Back: Normal range of motion Extremities: B/l edema++, right leg has multiple blisters anteriorly with erythema, left leg and left knee has abrasions and is swollen and is oozing, left elbow has a scratch as well, and right forearm has a scratch over his lateral aspect about 15cm in length Neurologic: Alert, oriented x3, Cranial exam grossly intact, Speech is clear and coherent, and back of right leg is sensitive to touch Skin: Warm and dry, except noted above Psychiatric: Calm, cooperative, coherant Current Medications: Current Medications Sig/Ann-Marie Start time Last Medication Dose Route Stop Time Status Admin Acetaminophen 650 MG Q6P PRN 03/26 0730 AC PO Amiodarone HCl 200 MG DAILY 03/24 1459 AC 03/30 PO 1020 Aspirin Buffered 81 MG DAILY 03/24 1459 AC 03/30 PO 1020 Atorvastatin Calcium 40 MG 1700 03/24 1700 AC 03/29 PO 1655 Budesonide/ 2 PUF BID 03/24 2200 AC 03/30 Formoterol Fumarate INH 1018 Carvedilol 25 MG BID 03/24 1501 AC 03/30 PO 1019 Cholecalciferol 1,000 IU DAILY 03/25 1000 AC 03/30 PO 1019 Cyanocobalamin 1,000 MCG DAILY 03/25 1000 AC 03/30 PO 1020 Docusate Sodium 100 MG BID PRN 03/24 1530 AC 03/30 PO 1020 Fenofibrate 145 MG DAILY 03/25 1000 AC 03/30 PO 1019 Furosemide 40 MG BID 03/30 2200 AC IV Furosemide 80 MG BID 03/29 2200 DC 03/30 IV 1026 Furosemide 40 MG TID 03/28 1600 DC 03/29 IV 1656 Gabapentin 600 MG Q8 03/24 1507 AC 03/30 PO 1357 Guaifenesin 600 MG Q12 03/24 1525 AC 03/30 PO 1020 Hydromorphone HCl 1 MG Q6P PRN 03/26 0730 AC IV Hydromorphone HCl 2 MG Q6P PRN 03/25 0045 AC 03/30 IV 1025 Insulin Aspart 0 TIDAC/HS 03/24 1700 AC 03/30 SC 1145 Insulin Detemir 30 UNITS BID 03/24 2200 AC 03/30 SC 1017 Ipratropium [place] 2.5 ML EVERY 4 HRS/AWAKE 03/25 0800 AC 03/30 INH 0803 Lisinopril 5 MG DAILY 03/24 1508 AC 03/30 PO 1020 Magnesium Chloride 64 MG BID 03/25 1000 AC 03/30 PO 1020 Naloxone HCl 0.4 MG Q 5 MINUTES X 3 DO.. 03/24 1530 AC IV Nicotine 21 MG DAILY 03/24 1508 AC 03/30 TOP 1022 Polyethylene Glycol 17 GM AT BEDTIME PRN 03/24 1515 AC 03/26 PO 1219 Potassium Chloride 10 MEQ DAILY 03/25 1000 AC 03/30 PO 1019 Prednisone 10 MG 1000 04/02 1000 AC PO 04/03 1001 Prednisone 20 MG 1000 03/31 1000 AC PO 04/01 1001 Prednisone 30 MG 1000 03/29 1000 DC 03/30 PO 03/30 1001 1019 Warfarin Sodium 5 MG COUMADIN 1700 ONE 03/29 1700 DC 03/29 PO 03/29 1701 1707 Last 24 Hrs of Lab/[place] Results Last 24 Hrs of Labs/Mics: Laboratory Tests 03/30/17 0625: Anion Gap 13, Estimated GFR 48 L, BUN/Creatinine Ratio 36.7 H, PT 27.9 H, INR 2.68 H, CBC w Diff NO MAN DIFF REQ, RBC 4.56 L, MCV 84.1, MCH 27.9, RDW 15.9 H, MPV 8.4, Gran % 77.9 H, Lymphocytes % 13.3 L, Monocytes % 5.5, Eosinophils % 3.0, Basophils % 0.3, Absolute Granulocytes 9.8 H, Absolute Lymphocytes 1.7, Absolute Monocytes 0.7 H, Absolute Eosinophils 0.4, Absolute Basophils 0, PUBS MCHC 33.2 Assessment/Plan Assessment: 61 y/o M with PMHx of COPD and TOMASZ on home oxygen (1.5 L at daytime and 2 L at night), HFpEF and atrial fibrillation on warfarin who is admitted for acute on chronic diastolic CHF. #Acute on chronic HFpEF: Persistent leg edema despite significant diuresis since admission. * Continue telemetry monitoring. * Decreased Lasix back to to 80 mg IV BID. * Monitor I/Os and daily BMPs. #Atrial fibrillation: Heart rate well-controlled. INR 2.68 today. * Continue to monitor INR daily and dose warfarin accordingly to keep INR 2-2.5. * Administer 5 mg of warfarin this evening. #COPD: Sputum culture with mixed jocelyne. * Continue Mucinex 600 mg PO BID. * Continue steroid taper. * TRC/nebs. * Provide supplemental oxygen to keep SpO2 > 92%. * Continue Symbicort 2 puffs BID. #Insulin-dependent T2DM: * Monitor blood sugars closely while on steroids. * Continue Levemir 30 units SQ BID. * Accu-checks and high-dose sliding scale Novolog TIDAC. Diet: Consistent Carbohydrate 3 with 2 g Na Restriction DVT PPx: Warfarin and ALPs CODE: FULL Problem List: 1. CHF exacerbation 2. Diabetes mellitus 3. Atrial fibrillation Pain Ratin Pain Location: legs Pain Goal: Pain 4 or less Pain Plan: as ordered Tomorrow's Labs & Rationales: INR, BEP, Mg
--- NOTE | 2017-03-30 10:28 | PN- Cardiology ---
Subjective Subjective: He reports that his shortness of breath is somewhat better. Lower extremity edema is improving but is still significant problem. No chest pain. No palpitations. No diaphoresis. Objective Vital Signs and I&Os Vital Signs Date Time Temp Pulse Resp B/P B/P Pulse O2 O2 Flow FiO2 Mean Ox Delivery Rate 03/30 822 97.8 82 18 122/74 98 Nasal 1.5L Cannula 03/30 0808 94 Room Air 03/30 0800 98 Nasal 1.5L Cannula 03/30 0000 Nasal 2.0L Cannula 03/29 2249 98.4 93 18 130/66 95 Room Air 03/29 2128 93 130/66 03/29 1718 98.6 87 18 140/82 95 03/29 1659 95 Nasal 1.5L Cannula 03/29 1600 95 Room Air Room Air 03/29 1127 94 Nasal 1.5L Cannula Intake & Output 03/30 1600 03/30 0800 05/ 0000 03/29 1600 03/29 0800 03/29 0000 Intake Total 400 960 561 741 9027 Output Total 1150 2200 1700 1100 2700 Balance -750 -1240 -1200 -500 -1680 Intake, IV 20 Intake, Oral 400 960 040 218 5920 Number 1 Bowel Movements Output, Urine 1150 2200 1700 1100 2700 Patient 315 lb Weight Weight Standing Scale Measurement Method Physical Exam: Gen: NAD HEENT: normal Lungs: Scattered rales, normal resp. effort Heart: RRR, S1, S2, no murmurs Abdomen: Soft, nontender, no masses Extremities: 2+ edema, dressings in place Neuro: Alert and oriented x 3, cranial nerves intact Current Medications: Current Medications Sig/Ann-Marie Start time Last Medication Dose Route Stop Time Status Admin Acetaminophen 650 MG Q6P PRN 03/26 0730 AC PO Amiodarone HCl 200 MG DAILY 03/24 1459 AC 03/29 PO 0945 Aspirin Buffered 81 MG DAILY 03/24 1459 AC 03/29 PO 0944 Atorvastatin Calcium 40 MG 1700 03/24 1700 AC 03/29 PO 1655 Budesonide/ 2 PUF BID 03/24 2200 AC 03/29 Formoterol Fumarate INH 9 Carvedilol 25 MG BID 03/24 1501 AC 03/29 PO 2128 Cholecalciferol 1,000 IU DAILY 03/25 1000 AC 03/29 PO 0944 Cyanocobalamin 1,000 MCG DAILY 03/25 1000 AC 03/29 PO 0944 Docusate Sodium 100 MG BID PRN 03/24 1530 AC 03/29 PO 0944 Fenofibrate 145 MG DAILY 03/25 1000 AC 03/29 PO 0944 Furosemide 80 MG BID 03/29 2200 AC 03/29 IV 2128 Furosemide 40 MG TID 03/28 1600 DC 03/29 IV 1656 Gabapentin 600 MG Q8 03/24 1507 AC 03/30 PO 0641 Guaifenesin 600 MG Q12 03/24 1525 AC 03/29 PO 2127 Hydromorphone HCl 1 MG Q6P PRN 03/26 0730 AC IV Hydromorphone HCl 2 MG Q6P PRN 03/25 0045 AC 03/30 IV 0346 Insulin Aspart 0 TIDAC/HS 03/24 1700 AC 03/30 SC 0819 Insulin Detemir 30 UNITS BID 03/24 2200 AC 03/29 SC 2129 Ipratropium [place] 2.5 ML EVERY 4 HRS/AWAKE 03/25 0800 AC 03/30 INH 0803 Lisinopril 5 MG DAILY 03/24 1508 AC 03/29 PO 0944 Magnesium Chloride 64 MG BID 03/25 1000 AC 03/29 PO 2127 Naloxone HCl 0.4 MG Q 5 MINUTES X 3 DO.. 03/24 1530 AC IV Nicotine 21 MG DAILY 03/24 1508 AC 03/29 TOP 0945 Polyethylene Glycol 17 GM AT BEDTIME PRN 03/24 1515 AC 03/26 PO 1219 Potassium Chloride 10 MEQ DAILY 03/25 1000 AC 03/29 PO 0944 Prednisone 10 MG 1000 04/02 1000 AC PO 04/03 1001 Prednisone 20 MG 1000 03/31 1000 AC PO 04/01 1001 Prednisone 30 MG 1000 03/29 1000 DC 03/29 PO 03/30 1001 0945 Warfarin Sodium 5 MG COUMADIN 1700 ONE 03/29 1700 DC 03/29 PO 03/29 1701 1707 Results Last 48 Hrs of Labs/Mics: Laboratory Tests 03/30/17 0625: Anion Gap 13, Estimated GFR 48 L, BUN/Creatinine Ratio 36.7 H, PT 27.9 H, INR 2.68 H, CBC w Diff NO MAN DIFF REQ, RBC 4.56 L, MCV 84.1, MCH 27.9, RDW 15.9 H, MPV 8.4, Gran % 77.9 H, Lymphocytes % 13.3 L, Monocytes % 5.5, Eosinophils % 3.0, Basophils % 0.3, Absolute Granulocytes 9.8 H, Absolute Lymphocytes 1.7, Absolute Monocytes 0.7 H, Absolute Eosinophils 0.4, Absolute Basophils 0, PUBS MCHC 33.2 03/29/17 0610: Anion Gap 11, Estimated GFR > 60, BUN/Creatinine Ratio 41.7 H, PT 26.3 H, INR 2.53 H, CBC w Diff NO MAN DIFF REQ, RBC 4.84, MCV 84.4, MCH 27.7, RDW 16.4 H, MPV 8.1, Gran % 79.3 H, Lymphocytes % 12.4 L, Monocytes % 6.0, Eosinophils % 2.1, Basophils % 0.2, Absolute Granulocytes 10.6 H, Absolute Lymphocytes 1.7, Absolute Monocytes 0.8 H, Absolute Eosinophils 0.3, Absolute Basophils 0, PUBS MCHC 32.9 L Assessment/Plan Assessment/Plan Assessment: 1. Atrial fibrillation 2. Acute on chronic diastolic heart failure 3. Acute COPD exacerbation 4. Supratherapeutic INR, resolved 5. Diabetes mellitus Plan: * Decrease IV Lasix to 40 mg every 12 hours given increasing creatinine * Follow input and output with daily weights * Check basic metabolic profile daily Continue telemetry? Yes
--- NOTE | 2017-03-30 14:04 | PN- Student ---
Subjective Subjective: Mr. Johnson reports new right leg pain today that we attribute to diabetic neuropathy. He also complains of the prominent leg swelling which he states has improved. His respiratory symptoms of wheezing and coughing up green sputum are still prevalent but are improving. Overall he seems to be feeling better each day. Objective Objective: Vital Signs Date Time Temp Pulse Resp B/P B/P Pulse O2 O2 Flow FiO2 Mean Ox Delivery Rate 03/30 1020 97.8 82 18 122/74 03/30 1020 97.8 82 122/74 03/30 1019 82 122/74 03/30 0822 97.8 82 18 122/74 98 Nasal 1.5L Cannula 03/30 0808 94 Room Air 03/30 08 98 Nasal 1.5L Cannula Intake & Output 03/30 1600 03/30 0800 03/30 0000 Intake Total 480 400 960 Output Total 1600 1150 2200 Balance -1120 -750 -1240 Intake, Oral 480 400 960 Number 0 Bowel Movements Output, Urine 1600 1150 2200 Patient 315 lb Weight Weight Standing Scale Measurement Method Telemetry: atrial fibrillation 70-80 with no events Pertinent Labs: H/H-12.7/38.8, WBC- 12.6, INR- 2.68, BUN- 55, Canvassing Manager-1.5, glucose- 149 PE: General appearance- alert and oriented x3, seated comfortably in chair, no apparent distress HEENT- atraumatic, RENNY, mucus membranes moist and pink Neck- supple, no JVD, no thyromegaly or lymphadenopathy, trachea is midline CV- S1 and S2 heard, irregularly irregular, no murmurs rubs or gallops noted on auscultation Chest- wheezes heard bilaterally at bases. good air movement Abd- soft, non-tender to palpation Skin- warm and well perfused, multiple blisters on anterior legs bilaterally with healing abrasions on both lower extremities. Also has scratch on right arm and left elbow abrasion. Bandages noted over both lower extremities which are clean. Ext- 2+ pitting edema bilaterally on Lower extremity. edema is improving, as is leg pain and ambulation. Assessment/Plan Assessment: Mr. Johnson is a 61 yo M with a PMH of A-fib, CHF, CAD, HTN, Hyperlipidemia, an [place] (stent in 2003), COPD (on 2L NC at home), Bronchitis, and diabetes mellitus. He was admitted to telemetry, from Dr. Cosby's office visit, on 03/24 with worsening dyspnea, lower extremity pain, and weeping sores on both lower extremities. He fell at home 3 days ago while trying to go to the bathroom and was unable to get up for several hours. He sustained numerous abrasions on both lower extemities while trying to get off of the floor which have been weeping fluid. He described his initial leg pain as 17/15 on a pain scale and was 10/15 on admission. During the admission he also reported a cough that has been productive of green phlegm plugs. He denied any chest pain but did state that he had chills the night that he fell. Today he has improved. His sores are healing but he still has blisters on the anterior legs. His pain is being managed well and he is still diuresing. He has no trouble getting around with his cane and continues to ambulate a few times daily to help work out his edema. Respiratory culture is growing mixed jocelyne and as of now no pneumonia is surmised. Overall patient is doing well and recovering well. Current Medications Sig/Ann-Marie Start time Last Medication Dose Route Stop Time Status Admin Acetaminophen 650 MG Q6P PRN 03/26 0730 AC PO Amiodarone HCl 200 MG DAILY 03/24 1459 AC 03/30 PO 1020 Aspirin Buffered 81 MG DAILY 03/24 1459 AC 03/30 PO 1020 Atorvastatin Calcium 40 MG 1700 03/24 1700 AC 03/29 PO 1655 Budesonide/ 2 PUF BID 03/24 2200 AC 03/30 Formoterol Fumarate INH 1018 Carvedilol 25 MG BID 03/24 1501 AC 03/30 PO 1019 Cholecalciferol 1,000 IU DAILY 03/25 1000 AC 03/30 PO 1019 Cyanocobalamin 1,000 MCG DAILY 03/25 1000 AC 03/30 PO 1020 Docusate Sodium 100 MG BID PRN 03/24 1530 AC 03/30 PO 1020 Fenofibrate 145 MG DAILY 03/25 1000 AC 03/30 PO 1019 Furosemide 40 MG BID 03/30 2200 AC IV Furosemide 80 MG BID 03/29 2200 DC 03/30 IV 1026 Furosemide 40 MG TID 03/28 1600 DC 03/29 IV 1656 Gabapentin 600 MG Q8 03/24 1507 AC 03/30 PO 1357 Guaifenesin 600 MG Q12 03/24 1525 AC 03/30 PO 1020 Hydromorphone HCl 1 MG Q6P PRN 03/26 0730 AC IV Hydromorphone HCl 2 MG Q6P PRN 03/25 0045 AC 03/30 IV 1025 Insulin Aspart 0 TIDAC/HS 03/24 1700 AC 03/30 SC 1145 Insulin Detemir 30 UNITS BID 03/24 2200 AC 03/30 SC 1017 Ipratropium [place] 2.5 ML EVERY 4 HRS/AWAKE 03/25 0800 AC 03/30 INH 0803 Lisinopril 5 MG DAILY 03/24 1508 AC 03/30 PO 1020 Magnesium Chloride 64 MG BID 03/25 1000 AC 03/30 PO 1020 Naloxone HCl 0.4 MG Q 5 MINUTES X 3 DO.. 03/24 1530 AC IV Nicotine 21 MG DAILY 03/24 1508 AC 03/30 TOP 1022 Polyethylene Glycol 17 GM AT BEDTIME PRN 03/24 1515 AC 03/26 PO 1219 Potassium Chloride 10 MEQ DAILY 03/25 1000 AC 03/30 PO 1019 Prednisone 10 MG 1000 / 1000 AC PO 04/03 1001 Prednisone 20 MG 1000 / 1000 AC PO 04/01 1001 Prednisone 30 MG 1000 03/29 1000 DC 03/30 PO 03/30 1001 1019 Warfarin Sodium 5 MG COUMADIN 1700 ONE 03/29 1700 DC 03/29 PO 03/29 1701 1707 Plan: Treatment plan is to continue diuresis and monitor labs and I&Os. Will continue wound care protocol. Possible discharge tomorrow. Problem List: 1. Wounds- continue with wound care protocol. 1. LE edema with chronic venous stasis- continue IV lasix 40mg BID and monitor I&Os 2. Elevated troponins- continue to monitor labs, latest show downward trend 3. Supratherapeutic INR- dose coumadin 5 mg PO daily to target of 2-3 (today INR was 2.68) 4. Atrial fibrillation- continue aspirin and coumadin and dose for target INR of 2-3 5. COPD exacerbation- will switch 40 mg IV methylprednisolone to 40 mg prednisone PO and continue home medications. Continue oxygen therapy at 1.5L NC during day and 2.0L at night. 6. Obesity- Educate patient on healthy diet strategies. 7. Diabetes- Diabetic Diet. continue to monitor glucose and continue home medication
[2017-03-30 15:30] VITALS: BP 118/78
[2017-03-30] MEDS ORDERED: GUAIFENESIN ER600 MG PO (21:52)
[2017-03-30] MEDS ORDERED: PREDNISONE10 M2 PO (21:55)
[2017-03-31 08:00] VITALS: BP 122/60
--- NOTE | 2017-03-31 09:05 | PN- Pulmonary ---
Subjective HPI/Critical Care Issues: The patient is awake and alert. He continues to have shortness of breath. He complains of faint wheezing. He also has an ongoing productive cough. He continues to be anxious and concerned over the pitting edema in both of his lower extremities. He is ambulating to the bathroom but is otherwise sedentary. Objective Current Medications: Current Medications Sig/Ann-Marie Start time Last Medication Dose Route Stop Time Status Admin Acetaminophen 650 MG Q6P PRN 03/26 0730 AC PO Amiodarone HCl 200 MG DAILY 03/24 1459 AC 03/30 PO 1020 Aspirin Buffered 81 MG DAILY 03/24 1459 AC 03/30 PO 1020 Atorvastatin Calcium 40 MG 1700 03/24 1700 AC 03/30 PO 1633 Budesonide/ 2 PUF BID 03/24 2200 AC 03/30 Formoterol Fumarate INH 2239 Carvedilol 25 MG BID 03/24 1501 AC 03/30 PO 2234 Cholecalciferol 1,000 IU DAILY 03/25 1000 AC 03/30 PO 1019 Cyanocobalamin 1,000 MCG DAILY 03/25 1000 AC 03/30 PO 1020 Docusate Sodium 100 MG BID PRN 03/24 1530 AC 03/30 PO 1020 Fenofibrate 145 MG DAILY 03/25 1000 AC 03/30 PO 1019 Furosemide 40 MG BID 03/30 2200 AC 03/30 IV 2236 Furosemide 80 MG BID 03/29 2200 DC 03/30 IV 1026 Gabapentin 600 MG Q8 03/24 1507 AC 03/31 PO 0643 Guaifenesin 600 MG Q12 03/24 1525 AC 03/30 PO 2235 Hydromorphone HCl 1 MG Q6P PRN 03/26 0730 AC IV Hydromorphone HCl 2 MG Q6P PRN 03/25 0045 AC 03/31 IV 0644 Insulin Aspart 0 TIDAC/HS 03/24 1700 AC 03/31 SC 0826 Insulin Detemir 30 UNITS BID 03/24 2200 AC 03/31 SC 0826 Ipratropium [place] 2.5 ML EVERY 4 HRS/AWAKE 03/25 0800 AC 03/31 INH 0611 Lisinopril 5 MG DAILY 03/24 1508 AC 03/30 PO 1020 Magnesium Chloride 64 MG BID 03/25 1000 AC 03/30 PO 2234 Naloxone HCl 0.4 MG Q 5 MINUTES X 3 DO.. 03/24 1530 AC IV Nicotine 21 MG DAILY 03/24 1508 AC 03/30 TOP 1022 Polyethylene Glycol 17 GM AT BEDTIME PRN 03/24 1515 AC 03/30 PO 2234 Potassium Chloride 10 MEQ DAILY 03/25 1000 AC 03/30 PO 1019 Prednisone 10 MG 1000 04/02 1000 AC PO 04/03 1001 Prednisone 20 MG 1000 03/31 1000 AC PO 04/01 1001 Prednisone 30 MG 1000 03/29 1000 DC 03/30 PO 03/30 1001 1019 Warfarin Sodium 5 MG COUMADIN 1700 ONE 03/30 1700 DC 03/30 PO 03/30 1701 1634 Vital Signs & I&O Last 24 Hrs of Vitals and I&O: Vital Signs Date Time Temp Pulse Resp B/P B/P Pulse O2 O2 Flow FiO2 Mean Ox Delivery Rate 03/31 0627 95 Nasal 1.5L Cannula 03/31 0000 96 Nasal 1.5L Cannula 03/30 2234 81 118/64 03/30 1635 98 Nasal 1.5L Cannula 03/30 1600 Nasal 1.5L Cannula 03/30 1530 98.6 74 18 118/78 96 Nasal 1.5L Cannula 03/30 1020 97.8 82 18 122/74 03/30 1020 97.8 82 122/74 03/30 1019 82 122/74 Intake & Output 03/31 1600 03/31 0800 03/31 0000 Intake Total 400 600 Output Total 850 900 Balance -450 -300 Intake, Oral 600 Intake, Tube 400 Feeding Output, Urine 850 900 Patient 317 lb Weight Weight Chair scale Measurement Method Exam General Appearance: alert, awake, obese Head: normal appearance Neck: supple Respiratory: decreased breath sounds, no wheezing Cardiovascular: edema, irregularly irregular Abdomen: normal bowel sounds, soft, non-tender, obese Extremities: bilateral lower extremity pitting edema up to the knee level, multiple wound dressings Impression/Plan Impression/Plan Impression/Plan: 1. Diastolic CHF exacerbation. 2. AECOPD. No evidence of pneumonia. Sputum culture is growing mixed jocelyne only. 3. Supratherapeutic INR - resolved. 4. Diabetes. 5. Chronic venous stasis. Recommendations: * Check a non-contrast CT of the chest, r/o pneumonia, effusion, etiology for dyspnea. * Continue Mucinex 600 mg BID. * Complete pednisone taper. Steroids make the patient's lower extremity edema worse. * Continue TR for neb treatments. * Oxygen to maintain saturations greater than 92%. * Continue Symbicort 2 inhalations every 12 hours. * Monitor blood sugars while on steroids. * Diuresis per cardiology. * Continue with leg elevation. * Bowel regimen to continue. * Consider pulmonary rehabilitation/short-term rehabilitation. * Continue all supportive care.
[2017-03-31 10:03] LABS: PT 24.7 SEC (9.4-12.5)
--- NOTE | 2017-03-31 11:18 | PN- Cardiology ---
Subjective Subjective: No chest pain. No palpitations. No shortness of breath. Lower extremity edema is somewhat better. No diaphoresis. No nausea or vomiting. Objective Vital Signs and I&Os Vital Signs Date Time Temp Pulse Resp B/P B/P Pulse O2 O2 Flow FiO2 Mean Ox Delivery Rate 03/31 1101 95 Nasal 1.5L Cannula 03/31 1000 83 122/60 / 1000 83 122/60 03/31 0959 83 122/60 03/31 0800 98.5 79 22 122/60 93 Nasal 1.5L Cannula 03/31 0627 95 Nasal 1.5L Cannula 03/31 0000 96 Nasal 1.5L Cannula 03/30 2234 81 118/64 03/30 1635 98 Nasal 1.5L Cannula 03/30 1600 Nasal 1.5L Cannula 03/30 1530 98.6 74 18 118/78 96 Nasal 1.5L Cannula Intake & Output 03/31 1600 03/31 0800 / 0000 03/30 1600 03/30 0800 03/30 0000 Intake Total 400 600 480 400 960 Output Total 809 456 9696 1150 2200 Balance -450 -300 -1120 -750 -1240 Intake, Oral 600 480 400 960 Intake, Tube 400 Feeding Number 0 Bowel Movements Output, Urine 873 553 7580 1150 2200 Patient 317 lb 315 lb Weight Weight Chair scale Standing Scale Measurement Method Physical Exam: Gen: NAD HEENT: normal Lungs: Scattered rales, normal resp. effort Heart: RRR, S1, S2, no murmurs Abdomen: Soft, nontender, no masses Extremities: 2+ edema, dressings in place Neuro: Alert and oriented x 3, cranial nerves intact Current Medications: Current Medications Sig/Ann-Marie Start time Last Medication Dose Route Stop Time Status Admin Acetaminophen 650 MG Q6P PRN 03/26 0730 AC PO Amiodarone HCl 200 MG DAILY 03/24 1459 AC 03/31 PO 1000 Aspirin Buffered 81 MG DAILY 03/24 1459 AC 03/31 PO 0959 Atorvastatin Calcium 40 MG 1700 03/24 1700 AC 03/30 PO 1633 Budesonide/ 2 PUF BID 03/24 2200 AC 03/31 Formoterol Fumarate INH 1001 Carvedilol 25 MG BID 03/24 1501 AC 03/31 PO 1000 Cholecalciferol 1,000 IU DAILY 03/25 1000 AC 03/31 PO 0958 Cyanocobalamin 1,000 MCG DAILY 03/25 1000 AC 03/31 PO 0958 Docusate Sodium 100 MG BID PRN 03/24 1530 AC 03/30 PO 1020 Fenofibrate 145 MG DAILY 03/25 1000 AC 03/31 PO 0958 Furosemide 40 MG BID 03/30 2200 AC 03/31 IV 1001 Furosemide 80 MG BID 03/29 2200 DC 03/30 IV 1026 Gabapentin 600 MG Q8 03/24 1507 AC 03/31 PO 0643 Guaifenesin 600 MG Q12 03/24 1525 AC 03/31 PO 1001 Hydromorphone HCl 1 MG Q6P PRN 03/26 0730 AC IV Hydromorphone HCl 2 MG Q6P PRN 03/25 0045 03/31 IV 0644 Insulin Aspart 0 TIDAC/HS 03/24 1700 AC 03/31 SC 0826 Insulin Detemir 30 UNITS BID 03/24 2200 AC 03/31 SC 0826 Ipratropium [place] 2.5 ML EVERY 4 HRS/AWAKE 03/25 0800 AC 03/31 INH 0611 Lisinopril 5 MG DAILY 03/24 1508 AC 03/31 PO 0959 Magnesium Chloride 64 MG BID 03/25 1000 AC 03/31 PO 0956 Naloxone HCl 0.4 MG Q 5 MINUTES X 3 DO.. 03/24 1530 AC IV Nicotine 21 MG DAILY 03/24 1508 03/30 TOP 1022 Polyethylene Glycol 17 GM AT BEDTIME PRN 03/24 1515 AC 03/30 PO 2234 Potassium Chloride 10 MEQ DAILY 03/25 1000 AC 03/31 PO 1000 Prednisone 10 MG 1000 04/02 1000 CAN PO 04/03 1001 Prednisone 20 MG 1000 03/31 1000 DC 03/31 PO 04/01 1001 0959 Warfarin Sodium 5 MG COUMADIN 1700 ONE 03/31 1700 AC PO 03/31 1701 Warfarin Sodium 5 MG COUMADIN 1700 ONE 03/30 1700 DC 03/30 PO 03/30 1701 1634 Results Last 48 Hrs of Labs/Mics: Laboratory Tests 03/31/17 09: Anion Gap 12, Estimated GFR 56 L, BUN/Creatinine Ratio 41.5 H, Magnesium 1.8, PT 24.7 H, INR 2.37 H 03/30/17 0625: Anion Gap 13, Estimated GFR 48 L, BUN/Creatinine Ratio 36.7 H, PT 27.9 H, INR 2.68 H, CBC w Diff NO MAN DIFF REQ, RBC 4.56 L, MCV 84.1, MCH 27.9, RDW 15.9 H, MPV 8.4, Gran % 77.9 H, Lymphocytes % 13.3 L, Monocytes % 5.5, Eosinophils % 3.0, Basophils % 0.3, Absolute Granulocytes 9.8 H, Absolute Lymphocytes 1.7, Absolute Monocytes 0.7 H, Absolute Eosinophils 0.4, Absolute Basophils 0, PUBS MCHC 33.2 Assessment/Plan Assessment/Plan Assessment: 1. Atrial fibrillation 2. Acute on chronic diastolic heart failure 3. Acute COPD exacerbation 4. Supratherapeutic INR, resolved 5. Diabetes mellitus Plan: * Increase Lasix to 60 mg IV every 12 hours * Follow input and output with daily weights * Check basic metabolic profile daily Continue telemetry? Yes
--- NOTE | 2017-03-31 13:25 | PN- Student ---
Subjective Subjective: Today Mr. Johnson has complaints of worsened pain. He also is very concerned with his lower extremity edema that he believes has worsened. His breathing is also more labored today. He feels that his condition has gotten a little worse since yesterday and is growing concerned. Objective Objective: Vital Signs Date Time Temp Pulse Resp B/P B/P Pulse O2 O2 Flow FiO2 Mean Ox Delivery Rate 03/31 1101 95 Nasal 1.5L Cannula 03/31 1000 83 122/60 03/31 1000 83 122/60 03/31 0959 83 122/60 / 0800 98.5 79 22 122/60 93 Nasal 1.5L Cannula 03/31 0627 95 Nasal 1.5L Cannula 03/31 0000 96 Nasal 1.5L Cannula 03/30 2234 81 118/64 03/30 1635 98 Nasal 1.5L Cannula 03/30 1600 Nasal 1.5L Cannula 03/30 1530 98.6 74 18 118/78 96 Nasal 1.5L Cannula Intake & Output 03/31 1600 03/31 0800 03/31 0000 Intake Total 400 600 Output Total 850 900 Balance -450 -300 Intake, Oral 600 Intake, Tube 400 Feeding Output, Urine 850 900 Patient 317 lb Weight Weight Chair scale Measurement Method Telemetry: atrial fibrillation 66-97 with no events Labs: K- 4.4, BUN- 54, Directory Compiler.- 1.3, INR- 2.37, glucose- 151 PE: General appearance- alert and oriented x3, seated comfortably in chair, no apparent distress HEENT- atraumatic, RENNY, mucus membranes moist and pink Neck- supple, no JVD, no thyromegaly or lymphadenopathy, trachea is midline CV- S1 and S2 heard, irregularly irregular, no murmurs rubs or gallops noted on auscultation Chest- wheezes heard bilaterally at bases. good air movement but somewhat labored Abd- soft, non-tender to palpation Skin- warm and well perfused, multiple blisters on anterior legs bilaterally with healing abrasions on both lower extremities. Also has scratch on right arm and left elbow abrasion. Bandages noted over both lower extremities which are clean. Ext- 2+ pitting edema bilaterally on Lower extremity. Edema seems a bit worse today and his pain seems to be greater than yesterday. Assessment/Plan Assessment: Mr. Johnson is a 61 yo M with a PMH of A-fib, CHF, CAD, HTN, Hyperlipidemia, an [place] (stent in 2003), COPD (on 2L NC at home), Bronchitis, and diabetes mellitus. He was admitted to telemetry, from Dr. Cosby's office visit, on 03/24 with worsening dyspnea, lower extremity pain, and weeping sores on both lower extremities. He fell at home 3 days ago while trying to go to the bathroom and was unable to get up for several hours. He sustained numerous abrasions on both lower extemities while trying to get off of the floor which have been weeping fluid. He described his initial leg pain as 17/15 on a pain scale and was 10/15 on admission. During the admission he also reported a cough that has been productive of green phlegm plugs. He denied any chest pain but did state that he had chills the night that he fell. Today he seems to have taken a small step back in his recovery. He has worse pain today than yesterday and his breathing and edema seem to be worse as well. He is more anxious and concerned that his condition has not improved, particularly his lower extremity edema. Current Medications Sig/Ann-Marie Start time Last Medication Dose Route Stop Time Status Admin Acetaminophen 650 MG Q6P PRN 03/26 0730 AC PO Amiodarone HCl 200 MG DAILY 03/24 1459 AC 03/31 PO 1000 Aspirin Buffered 81 MG DAILY 03/24 1459 AC 03/31 PO 0959 Atorvastatin Calcium 40 MG 1700 03/24 1700 AC 03/30 PO 1633 Budesonide/ 2 PUF BID 03/24 2200 AC 03/31 Formoterol Fumarate INH 1001 Carvedilol 25 MG BID 03/24 1501 AC 0502 PO 1000 Cholecalciferol 1,000 IU DAILY 03/25 1000 AC 03/31 PO 0958 Cyanocobalamin 1,000 MCG DAILY 03/25 1000 AC 03/31 PO 0958 Docusate Sodium 100 MG BID PRN 03/24 1530 AC 03/30 PO 1020 Fenofibrate 145 MG DAILY 03/25 1000 AC 03/31 PO 0958 Furosemide 60 MG 7:30 AM, & 4:30 PM 03/31 1630 AC IV Furosemide 40 MG BID 03/30 2200 DC 03/31 IV 1001 Gabapentin 600 MG Q8 03/24 1507 AC 03/31 PO 0643 Guaifenesin 600 MG Q12 03/24 1525 AC 03/31 PO 1001 Hydromorphone HCl 1 MG Q6P PRN 03/26 0730 AC IV Hydromorphone HCl 2 MG Q6P PRN 03/25 0045 AC 03/31 IV 1256 Insulin Aspart 0 TIDAC/HS 03/24 1700 AC 03/31 SC 1144 Insulin Detemir 30 UNITS BID 03/24 2200 AC 03/31 SC 0826 Ipratropium [place] 2.5 ML EVERY 4 HRS/AWAKE 03/25 0800 AC 03/31 INH 0611 Lisinopril 5 MG DAILY 03/24 1508 AC 03/31 PO 0959 Magnesium Chloride 64 MG BID 03/25 1000 AC 03/31 PO 0956 Naloxone HCl 0.4 MG Q 5 MINUTES X 3 DO.. 03/24 1530 AC IV Nicotine 21 MG DAILY 03/24 1508 AC 03/30 TOP 1022 Polyethylene Glycol 17 GM AT BEDTIME PRN 03/24 1515 AC 03/30 PO 2234 Potassium Chloride 10 MEQ DAILY 03/25 1000 AC 03/31 PO 1000 Prednisone 10 MG 1000 04/02 1000 CAN PO 04/03 1001 Prednisone 20 MG 1000 03/31 1000 DC 03/31 PO 04/01 1001 0959 Warfarin Sodium 5 MG COUMADIN 1700 ONE 03/31 1700 AC PO 03/31 1701 Warfarin Sodium 5 MG COUMADIN 1700 ONE 03/30 1700 DC 03/30 PO 03/30 1701 1634 Plan: Patient seems to have plateaud in his diuresis and his pain has increased. he also is showing more labored breathing following the discontinue of his steroid medication. Will increase lasix dose to try and improve diuresis in hopes of improving his edema and respiratory symptoms. Will leave pain medication alone for now and see how he responds. Problem List: 1. Wounds- continue with wound care protocol. 1. LE edema with chronic venous stasis- increase IV lasix to 60 mg BID and monitor I&Os 2. Elevated troponins- continue to monitor labs, latest show downward trend 3. Supratherapeutic INR- dose coumadin 5 mg PO daily to target of 2-3 (today INR was 2.37) 4. Atrial fibrillation- continue aspirin and coumadin and dose for target INR of 2-3 5. COPD exacerbation- discontinue 40 mg prednisone PO and continue home medications. Continue oxygen therapy at 1.5L [place] during day and 2.0L at night. 6. Obesity- Educate patient on healthy diet strategies. 7. Diabetes- Diabetic Diet. continue to monitor glucose and continue home medication Code Status: full code
--- NOTE | 2017-03-31 13:50 | PN- Housestaff ---
Subjective Follow-up For: CHF Exacerbation Complaints: limb edema not getting better Tele-Events Since Last Visit: Atrial fibrillation, heart rate ranging from 66-97. Subjective: I followed up and examined the patient today. He was walking around on the floor, without any difficulty, but with assistance of a cane. He did complete that his leg swelling has not been better recently, and that his pain is very manageable. Vital signs stable, telemetry were noted as above with no other issues. Review of Systems Constitutional: Reports: see HPI. Objective Last 24 Hrs of Vital Signs/I&O Vital Signs Date Time Temp Pulse Resp B/P B/P Pulse O2 O2 Flow FiO2 Mean Ox Delivery Rate 03/31 1101 95 Nasal 1.5L Cannula 03/31 1000 83 122/60 03/31 1000 83 122/60 03/31 0959 83 122/60 03/31 0800 98.5 79 22 122/60 93 Nasal 1.5L Cannula 03/31 0627 95 Nasal 1.5L Cannula 03/31 0000 96 Nasal 1.5L Cannula 03/30 2234 81 118/64 03/30 1635 98 Nasal 1.5L Cannula 03/30 1600 Nasal 1.5L Cannula 03/30 1530 98.6 74 18 118/78 96 Nasal 1.5L Cannula Intake & Output 03/31 1600 03/31 0800 03/31 0000 Intake Total 400 600 Output Total 850 900 Balance -450 -300 Intake, Oral 600 Intake, Tube 400 Feeding Output, Urine 850 900 Patient 143.789 kg Weight Weight Chair scale Measurement Method Physical Exam General Appearance: Alert, Oriented X3, Cooperative, No Acute Distress Other Physical Findings: Head: Normocephalic, atraumatic Eyes: Pupils normal in size, regular, reacting to light and accommodation, EOM normal Ears: B/l normal on inspection Nose: Normal on inspection Throat/mouth: Moist mucosa Neck: Supple, full range of motion, no thyromegaly Heart: Regular rate, irregular rhythm Lung: Vesicular breath sound bilaterally with wheezes b/l and few crackles over the base b/l Abd: Soft, non-tender, no distention appreciated Back: Normal range of motion Extremities: Bilateral lower limb edema is worse than yesterday +++ Neurologic: Alert, oriented x3, grossly intact Skin: Warm and dry, b/l legs have blisters and ulcers, well dressed Psychiatric: Calm, cooperative, coherant Current Medications: Current Medications Sig/Ann-Marie Start time Last Medication Dose Route Stop Time Status Admin Acetaminophen 650 MG Q6P PRN 03/26 0730 AC PO Amiodarone HCl 200 MG DAILY 03/24 1459 AC 03/31 PO 1000 Aspirin Buffered 81 MG DAILY 03/24 1459 AC 03/31 PO 0959 Atorvastatin Calcium 40 MG 1700 03/24 1700 AC 03/30 PO 1633 Budesonide/ 2 PUF BID 03/24 2200 03/31 Formoterol Fumarate INH 1001 Carvedilol 25 MG BID 03/24 1501 AC 03/31 PO 1000 Cholecalciferol 1,000 IU DAILY 03/25 1000 AC 03/31 PO 0958 Cyanocobalamin 1,000 MCG DAILY 03/25 1000 AC 03/31 PO 0958 Docusate Sodium 100 MG BID PRN 03/24 1530 AC 03/30 PO 1020 Fenofibrate 145 MG DAILY 03/25 1000 AC 03/31 PO 0958 Furosemide 60 MG 7:30 AM, & 4:30 PM 03/31 1630 AC IV Furosemide 40 MG BID 03/30 2200 MS 03/31 IV 1001 Gabapentin 600 MG Q8 03/24 1507 AC 03/31 PO 0643 Guaifenesin 600 MG Q12 03/24 1525 03/31 PO 1001 Hydromorphone HCl 1 MG Q6P PRN 03/26 0730 IV Hydromorphone HCl 2 MG Q6P PRN 03/25 0045 AC 03/31 IV 1256 Insulin Aspart 0 TIDAC/HS 03/24 1700 03/31 SC 1144 Insulin Detemir 30 UNITS BID 03/24 2200 03/31 SC 0826 Ipratropium [place] 2.5 ML EVERY 4 HRS/AWAKE 03/25 0800 AC 03/31 INH 0611 Lisinopril 5 MG DAILY 03/24 1508 AC 03/31 PO 0959 Magnesium Chloride 64 MG BID 03/25 1000 AC 03/31 PO 0956 Naloxone HCl 0.4 MG Q 5 MINUTES X 3 DO.. 03/24 1530 AC IV Nicotine 21 MG DAILY 03/24 1508 03/30 TOP 1022 Patient Medication 1 ED .STK-MED ONE 03/31 1339 DC Teaching ED 03/31 1340 Polyethylene Glycol 17 GM AT BEDTIME PRN 03/24 1515 AC 03/30 PO 2234 Potassium Chloride 10 MEQ DAILY 03/25 1000 AC 03/31 PO 1000 Prednisone 10 MG 1000 04/02 1000 CAN PO 04/03 1001 Prednisone 20 MG 1000 03/31 1000 DC 03/31 PO 04/01 1001 0959 Warfarin Sodium 5 MG COUMADIN 1700 ONE 03/31 1700 AC PO 03/31 1701 Warfarin Sodium 5 MG COUMADIN 1700 ONE 03/30 1700 DC 03/30 PO 03/30 1701 1634 Last 24 Hrs of Lab/[place] Results Last 24 Hrs of Labs/Mics: Laboratory Tests 03/31/17 0925: Anion Gap 12, Estimated GFR 56 L, BUN/Creatinine Ratio 41.5 H, Magnesium 1.8, PT 24.7 H, INR 2.37 H Assessment/Plan Assessment: 61 y/o M with PMHx of COPD and TOMASZ on home oxygen (1.5 L at daytime and 2 L at night), HFpEF and atrial fibrillation on warfarin who is admitted for acute on chronic diastolic CHF. #Acute on chronic HFpEF: Persistent leg edema despite significant diuresis since admission. * Continue telemetry monitoring. * Increased Lasix back to 60 mg IV BID. * Monitor I/Os and daily BMPs. #Atrial fibrillation: Heart rate well-controlled. INR 2.37 today. * Continue to monitor INR daily and dose warfarin accordingly to keep INR 2-2.5. * Administer 5 mg of warfarin this evening. #COPD: Sputum culture with mixed jocelyne. * [employer] Worker Dr. Esparza suggested getting a chest CAT scan, to rule out/ fusion/other pulmonary etiologies for persistent dyspnea other than CHF exacerbation. Awaiting results. * Continue Mucinex 600 mg PO BID. * Steroid taper completed today. * TRC/nebs. * Provide supplemental oxygen to keep SpO2 > 92%. * Continue Symbicort 2 puffs BID. #Insulin-dependent T2DM: * Monitor blood sugars closely while on steroids. * Continue Levemir 30 units SQ BID. * Accu-checks and high-dose sliding scale Novolog TIDAC. * Blood sugar this morning was 151, will probably get better as steroids has been stopped from today. Diet: Consistent Carbohydrate 3 with 2 g Na Restriction DVT PPx: Warfarin and ALPs CODE: FULL Problem List: 1. (HFpEF) heart failure with preserved ejection fraction 2. Insulin dependent type 2 diabetes mellitus 3. Atrial fibrillation 4. COPD (chronic obstructive pulmonary disease) Pain Ratin Pain Location: legs Pain Goal: Pain 4 or less Pain Plan: prn Tomorrow's Labs & Rationales: INR, BEP, Mg to dose coumadin, and to replete lytes
[2017-03-31 15:30] VITALS: BP 98/70
--- NOTE | 2017-03-31 17:48 | CT SCAN REPORT ---
EXAMINATION: CT CHEST WITHOUT CONTRAST CLINICAL INFORMATION: Persistent dyspnea. Has history of CHF and COPD. Presumptive diagnosis of pneumonia, effusion. COMPARISON: Multiple prior chest x-rays, most recent of which is dated 03/24/2017. CTA of the chest dated 05/22/2016 and 10/20/2013. TECHNIQUE: Multidetector volumetric CT imaging of the chest was obtained noncontrast. Sagittal and coronal reformations were obtained. DLP: 940.44 mGy-cm. FINDINGS: LUNGS: Chronic volume loss and linear reticular opacities and mild consolidative changes are seen in the right lower lobe and to a lesser extent in the left lower lobe and inferior right middle lobe, unchanged dating back to 03/21/2013. A tiny 0.2 cm noncalcified micronodule is seen in the right middle lobe (series 4, image 263) and in the right lower lobe (series 4, image 359), not appreciated on prior studies and of doubtful clinical significance. No suspicious focal lung nodule or mass. No effusion or pneumothorax. Central airways patent. Small linear strand of mucous is seen in the right mainstem bronchus (series 4, image 192) and left mainstem bronchus (series 4, image 218). LYMPHOVASCULAR STRUCTURES: Borderline aneurysmal dilatation of the ascending aorta is seen, measuring 3.9 cm, unchanged since 2013. Mild atherosclerotic calcifications of the aorta and great vessels and severe three-vessel coronary artery calcifications are noted. Heart size enlarged with primarily left heart enlargement seen. No pericardial effusion. There are borderline enlarged mediastinal lymph nodes and left hilar lymph nodes, including a 1.2 cm subcarinal lymph node and a 1.2 cm left hilar lymph node, both unchanged from 05/22/2016 and larger compared to 2013. No definite right hilar adenopathy or axillary adenopathy is appreciated. Small subcentimeter sized celiac axis lymph nodes are seen, unchanged. THYROID GLAND: Several thyroid nodules are seen, the largest of which is incompletely included in the mid left lobe, measuring 1.5 x 1.3 cm, poorly visualized on the prior exams due to extensive beam hardening artifact, and likely larger compared to approximately 1 cm in 2013. UPPER ABDOMEN: Included portions of the solid organs in the upper abdomen within normal limits. BONES: There is multilevel mild vertebral spondylosis seen in the lower cervical, upper and lower thoracic spine. No suspicious focal findings. IMPRESSION: 1. Chronic volume loss and atelectatic changes as seen in the right lower lobe, left lower lobe and right middle lobe, unchanged dating back to 2012. 2. No superimposed focal pneumonia or evidence of pleural effusion or pulmonary edema is seen. 3. Two tiny 0.2 cm micronodules in the right middle lobe and right lower lobe, not appreciated on prior studies and of doubtful clinical significance. No specific follow-up is required. No suspicious pulmonary nodule or mass is seen. 4. Borderline sized mediastinal and left hilar lymph nodes, unchanged from 05/22/2016 and likely reactive. 5. Multiple thyroid nodules, poorly assessed on prior exams. Further assessment with dedicated thyroid ultrasound is recommended.
[2017-04-01 01:20] VITALS: BP 102/68
--- NOTE | 2017-04-01 06:56 | PN- Housestaff ---
Subjective Follow-up For: CHF Exacerbation Complaints: legs are weeping b/l, painful legs 09/08 Tele-Events Since Last Visit: Atrial fibrillation, HR 60-80, frequent PVCs overnight. Subjective: I followed up and examined the patient today. He is resting in his recliner, is in moderate to severe distress due to pain in his legs, is complaining that his legs are weeping, his sleep is disturbed due to pain, vital signs otherwise have been stable, telemetry events noted as above. Review of Systems Constitutional: Reports: see HPI. Objective Last 24 Hrs of Vital Signs/I&O Vital Signs Date Time Temp Pulse Resp B/P B/P Pulse O2 O2 Flow FiO2 Mean Ox Delivery Rate 04/01 1139 78 120/64 04/01 1130 98.0 78 20 120/64 95 Nasal 1.5L Cannula 04/01 0900 98.2 74 16 118/60 97 Nasal 2.0L Cannula 04/01 0815 97 Nasal 1.5L Cannula 04/01 0800 Nasal 2.0L Cannula 04/01 0120 98.5 89 18 102/68 94 Nasal Cannula 03/31 2242 99 126/72 03/31 1614 96 Nasal 1.5L Cannula 03/31 1600 Nasal 1.5L Cannula 03/31 1530 98.3 92 20 98/70 93 Nasal 1.5L Cannula Intake & Output 04/01 1600 04/01 0800 04/01 0000 Intake Total 740 Output Total 650 2400 Balance -650 -1660 Intake, IV 20 Intake, Oral 720 Output, Urine 650 2400 Patient 142.655 kg Weight Weight Chair scale Measurement Method Physical Exam General Appearance: Alert, Oriented X3, Cooperative, Mild Distress Other Physical Findings: Head: Normocephalic, atraumatic Eyes: Pupils normal in size, regular, reacting to light and accommodation, EOM normal Ears: B/l normal on inspection Nose: Normal on inspection Throat/mouth: Moist mucosa Neck: Supple, full range of motion, no thyromegaly Heart: Regular rate, irregular rhythm Lung: Vesicular breath sound bilaterally with wheezes b/l and few crackles over the base b/l Abd: Soft, non-tender, no distention appreciated Back: Normal range of motion Extremities: Bilateral lower limb edema is worse than yesterday and has weeping wounds Neurologic: Alert, oriented x3, grossly intact Skin: Warm and dry, b/l legs have blisters and ulcers, well dressed Psychiatric: Calm, cooperative, coherant Current Medications: Current Medications Sig/Ann-Marie Start time Last Medication Dose Route Stop Time Status Admin Acetaminophen 650 MG Q6P PRN 03/26 0730 AC PO Amiodarone HCl 200 MG DAILY 03/24 1459 AC 04/01 PO 1139 Aspirin Buffered 81 MG DAILY 03/24 1459 AC 04/01 PO 1140 Atorvastatin Calcium 40 MG 1700 03/24 1700 AC 03/31 PO 1650 Budesonide/ 2 PUF BID 03/24 2200 AC 04/01 Formoterol Fumarate INH 1144 Carvedilol 25 MG BID 03/24 1501 AC 04/01 PO 1140 Cholecalciferol 1,000 IU DAILY 03/25 1000 AC 04/01 PO 1140 Cyanocobalamin 1,000 MCG DAILY 03/25 1000 AC 04/01 PO 1140 Docusate Sodium 100 MG BID PRN 03/24 1530 AC 03/30 PO 1020 Fenofibrate 145 MG DAILY 03/25 1000 AC 04/01 PO 1140 Furosemide 60 MG 7:30 AM, & 4:30 PM 03/31 1630 AC 04/01 IV 0822 Gabapentin 600 MG Q8 03/24 1507 AC 04/01 PO 0559 Guaifenesin 600 MG Q12 03/24 1525 AC 04/01 PO 1140 Hydromorphone HCl 2 MG Q6P PRN 04/01 0815 AC 04/01 PO 1153 Hydromorphone HCl 1 MG ONCE ONE 04/01 0815 DC 04/01 IV 04/01 0816 0822 Hydromorphone HCl 1 MG Q6P PRN 03/26 0730 DC 04/01 IV 0241 Hydromorphone HCl 2 MG Q6P PRN 03/25 0045 DC 03/31 IV 1901 Insulin Aspart 0 TIDAC/HS 03/24 1700 AC 04/01 SC 1307 Insulin Detemir 30 UNITS BID 03/24 2200 AC 04/01 SC 1142 Ipratropium [place] 2.5 ML EVERY 4 HRS/AWAKE 03/25 0800 AC 04/01 INH 1150 Lisinopril 5 MG DAILY 03/24 1508 AC 04/01 PO 1144 Magnesium Chloride 64 MG BID 03/25 1000 AC 05/03 PO 1143 Naloxone HCl 0.4 MG Q 5 MINUTES X 3 DO.. 03/24 1530 AC IV Nicotine 21 MG DAILY 03/24 1508 AC 04/01 TOP 1142 Patient Medication 1 ED .STK-MED ONE 03/31 1339 DC Teaching ED 03/31 1340 Polyethylene Glycol 17 GM AT BEDTIME PRN 03/24 1515 AC 03/30 PO 2234 Potassium Chloride 10 MEQ DAILY 03/25 1000 AC 04/01 PO 1140 Warfarin Sodium 5 MG COUMADIN 1700 ONE 03/31 1700 DC 03/31 PO 03/31 1701 1650 Assessment/Plan Assessment: 61 y/o M with PMHx of COPD and TOMASZ on home oxygen (1.5 L at daytime and 2 L at night), HFpEF and atrial fibrillation on warfarin who is admitted for acute on chronic diastolic CHF. #Acute on chronic HFpEF: Persistent leg edema despite significant diuresis since admission. Wound in the legs are the skin breaks oozing out serous fluid, and doesn't appear infected * Continue telemetry monitoring. * Is on Lasix back to 60 mg IV BID. * Monitor I/Os and daily BMPs. #Atrial fibrillation: Heart rate well-controlled. INR 2.28 today. * Continue to monitor INR daily and dose warfarin accordingly to keep INR 2-2.5. * Administer 5 mg of warfarin this evening. #COPD: Sputum culture with mixed jocelyne. * Chest CT scan, did NOT show acute pathology, but did mention wanting loss and atelectatic changes, micronodules, borderline sized mediastinal and left hilar lymph nodes, multiple thyroid nodules. * Continue Mucinex 600 mg PO BID. * Off steroids. * TRC/nebs. * Provide supplemental oxygen to keep SpO2 > 92%. * Continue Symbicort 2 puffs BID. #Insulin-dependent T2DM: * Monitor blood sugars closely while on steroids. * Continue Levemir 30 units SQ BID. * Accu-checks and high-dose sliding scale Novolog TIDAC. * Blood sugar this morning was 113, will probably get better as steroids has been stopped since yesterday Diet: Consistent Carbohydrate 3 with 2 g Na Restriction, 1500 mL fluid restriction in 24 hours has been placed from today. DVT PPx: Warfarin and ALPS CODE: FULL CODE Problem List: 1. (HFpEF) heart failure with preserved ejection fraction 2. Insulin dependent type 2 diabetes mellitus 3. Atrial fibrillation 4. COPD (chronic obstructive pulmonary disease) Pain Ratin Pain Location: legs Pain Goal: Pain 4 or less Pain Plan: prn, now on PO plan with breakthrough plan Tomorrow's Labs & Rationales: INR, BEP to dose Coumadin and repeat electrolytes
--- NOTE | 2017-04-01 08:19 | PN- Student ---
YOAV MANN 04/01/17 0814: Subjective Subjective: Today Mr. Johnson complains of pain of 10/10, difficulty breathing and that his wounds on his legs are oozing. He also states that he feels as if he has a fever and overall feels bad. He is still concerned that he is not diuresing enough since his leg edema is still quite prominent. Objective Objective: Vital Signs Date Time Temp Pulse Resp B/P B/P Pulse O2 O2 Flow FiO2 Mean Ox Delivery Rate 04/01 0120 98.5 89 18 102/68 94 Nasal Cannula 03/31 2242 99 126/72 03/31 1614 96 Nasal 1.5L Cannula 03/31 1600 Nasal 1.5L Cannula 03/31 1530 98.3 92 20 98/70 93 Nasal 1.5L Cannula 03/31 1101 95 Nasal 1.5L Cannula 03/31 1000 83 122/60 03/31 1000 83 122/60 03/31 0959 83 122/60 Intake & Output 04/01 1600 04/01 0800 04/01 0000 Intake Total 600 740 Output Total 2100 650 2400 Balance -1500 -650 -1660 Intake, IV 20 Intake, Oral 600 720 Output, Urine 2100 650 2400 Patient 315 lb Weight Weight Chair scale Measurement Method Telemetry: atrial fibrillation 63-80 with PVCs Labs: PT- 23.7, INR- 2.28, BUN- 53, Chief Accountant- 1.2, GFR- >60, Glucose- 115 PE: General appearance- alert and oriented x3, seated in chair, he looks like he is cold and somewhat uncomfortable. HEENT- atraumatic, RENNY, mucus membranes moist and pink Neck- supple, no JVD, no thyromegaly or lymphadenopathy, trachea is midline CV- S1 and S2 heard, irregularly irregular, no murmurs rubs or gallops noted on auscultation Chest- loud wheezes heard bilaterally at bases. good air movement but somewhat labored Abd- soft, non-tender to palpation Skin- warm and well perfused, multiple blisters on anterior legs bilaterally with bandaged abrasions on both lower extremities, wounds seem to be oozing serous fluid. Also has scratch on right arm and left elbow abrasion. Ext- 2+ pitting edema bilaterally on Lower extremity. Edema seems a bit worse today and his pain seems to be greater than yesterday. Results Results: Laboratory Tests 04/01/17 0620: Anion Gap 10, Estimated GFR > 60, BUN/Creatinine Ratio 44.2 H, Magnesium 2.0, PT 23.7 H, INR 2.28 H 03/31/17 0925: Anion Gap 12, Estimated GFR 56 L, BUN/Creatinine Ratio 41.5 H, Magnesium 1.8, PT 24.7 H, INR 2.37 H 03/30/17 0625: Anion Gap 13, Estimated GFR 48 L, BUN/Creatinine Ratio 36.7 H, PT 27.9 H, INR 2.68 H, CBC w Diff NO MAN DIFF REQ, RBC 4.56 L, MCV 84.1, MCH 27.9, RDW 15.9 H, MPV 8.4, Gran % 77.9 H, Lymphocytes % 13.3 L, Monocytes % 5.5, Eosinophils % 3.0, Basophils % 0.3, Absolute Granulocytes 9.8 H, Absolute Lymphocytes 1.7, Absolute Monocytes 0.7 H, Absolute Eosinophils 0.4, Absolute Basophils 0, PUBS MCHC 33.2 Assessment/Plan Assessment: Mr. Johnson is a 61 yo M with a PMH of A-fib, CHF, CAD, HTN, Hyperlipidemia, an [place] (stent in 2003), COPD (on 2L NC at home), Bronchitis, and diabetes mellitus. He was admitted to telemetry, from Dr. Cosby's office visit, on 03/24 with worsening dyspnea, lower extremity pain, and weeping sores on both lower extremities. He fell at home 3 days ago while trying to go to the bathroom and was unable to get up for several hours. He sustained numerous abrasions on both lower extemities while trying to get off of the floor which have been weeping fluid. He described his initial leg pain as 17/15 on a pain scale and was 10/15 on admission. During the admission he also reported a cough that has been productive of green phlegm plugs. He denied any chest pain but did state that he had chills the night that he fell. Today he doesnt seem to be doing much better. His pain is still uncontrolled (10 /10), he is having prominent expiratory wheezes and labored breathing, and his lower extremity edema seems to be the same as yesterday. He is still diuresing but I am concerned that oral fluid intake may be too high for any benefit to be seen. He states that he hasnt been drinking much yet he still doesnt seem to be losing the edema. His new symptoms of chills are a bit worrying considering his leg wounds, however he doesnt seem to be spiking fevers and the wounds seem to be leaking transudative fluid and show no signs of infection. Current Medications Sig/Ann-Marie Start time Last Medication Dose Route Stop Time Status Admin Acetaminophen 650 MG Q6P PRN 03/26 0730 AC PO Amiodarone HCl 200 MG DAILY 03/24 1459 AC 03/31 PO 1000 Aspirin Buffered 81 MG DAILY 03/24 1459 AC 03/31 PO 0959 Atorvastatin Calcium 40 MG 1700 03/24 1700 AC 03/31 PO 1650 Budesonide/ 2 PUF BID 03/24 2200 AC 03/31 Formoterol Fumarate INH 2238 Carvedilol 25 MG BID 03/24 1501 AC 03/31 PO 2242 Cholecalciferol 1,000 IU DAILY 03/25 1000 AC 03/31 PO 0958 Cyanocobalamin 1,000 MCG DAILY 03/25 1000 AC 03/31 PO 0958 Docusate Sodium 100 MG BID PRN 03/24 1530 AC 03/30 PO 1020 Fenofibrate 145 MG DAILY 03/25 1000 AC 03/31 PO 0958 Furosemide 60 MG 7:30 AM, & 4:30 PM 03/31 1630 AC 03/31 IV 1650 Furosemide 40 MG BID 03/30 2200 DC 03/31 IV 1001 Gabapentin 600 MG Q8 03/24 1507 AC 04/01 PO 0559 Guaifenesin 600 MG Q12 03/24 1525 AC 03/31 PO 2237 Hydromorphone HCl 2 MG Q6P PRN 04/01 0815 AC PO Hydromorphone HCl 1 MG ONCE ONE 04/01 0815 AC IV 04/01 0816 Hydromorphone HCl 1 MG Q6P PRN 03/26 0730 DC 04/01 IV 0241 Hydromorphone HCl 2 MG Q6P PRN 03/25 0045 DC 03/31 IV 1901 Insulin Aspart 0 TIDAC/HS 03/24 1700 AC 03/31 SC 1710 Insulin Detemir 30 UNITS BID 03/24 2200 AC 03/31 SC 2238 Ipratropium [place] 2.5 ML EVERY 4 HRS/AWAKE 03/25 0800 AC 04/01 INH 0812 Lisinopril 5 MG DAILY 03/24 1508 AC 03/31 PO 0959 Magnesium Chloride 64 MG BID 03/25 1000 AC 03/31 PO 2237 Naloxone HCl 0.4 MG Q 5 MINUTES X 3 DO.. 03/24 1530 AC IV Nicotine 21 MG DAILY 03/24 1508 AC 03/31 TOP 1406 Patient Medication 1 ED .STK-MED ONE 03/31 1339 DC Teaching ED 03/31 1340 Polyethylene Glycol 17 GM AT BEDTIME PRN 03/24 1515 AC 03/30 PO 2234 Potassium Chloride 10 MEQ DAILY 03/25 1000 AC 03/31 PO 1000 Prednisone 10 MG 1000 04/02 1000 CAN PO 04/03 1001 Prednisone 20 MG 1000 03/31 1000 DC 03/31 PO 04/01 1001 0959 Warfarin Sodium 5 MG COUMADIN 1700 ONE 03/31 1700 DC 03/31 PO 03/31 1701 1650 Plan: His pain medication was changed today. He will receive 1mg IV hydromorphone around 8:30am then he will be switched to 2mg PO Q6P to control pain in hopes of helping transition to PO for discharge. We will continue to diurese as per Dr. Cosby's order (target [id number] cc/day) as well as put him on fluid restriction of 1500 mL per day. We will also be following Dr. Morgan orders from pulmonology as well. Problem List: 1. Wounds- continue with wound care protocol. 1. LE edema with chronic venous stasis- increase IV lasix to 60 mg BID and monitor I&Os 2. Elevated troponins- continue to monitor labs, latest show downward trend 3. Supratherapeutic INR- dose coumadin 5 mg PO daily to target of 2-3 (today INR was 2.28) 4. Atrial fibrillation- continue aspirin and coumadin and dose for target INR of 2-3 5. COPD exacerbation- continue home medications. Continue oxygen therapy at 1.5L NC during day and 2.0L at night. 6. Obesity- Educate patient on healthy diet strategies. 7. Diabetes- Diabetic Diet. continue to monitor glucose and continue home medication Code Status: full code LETICIA GALICIA MD 04/02/17 1154: Attending MD Review Statement Attending Sign Off Attending Cosign Statement: I have not: examined this patient, amended to note. Other Findings: Not Hospitalist Patient
[2017-04-01 08:40] LABS: PT 23.7 SEC (9.4-12.5)
--- NOTE | 2017-04-01 08:43 | PN- Pulmonary ---
FREIDA VILLASENOR,STACY 04/01/17 0842: Subjective HPI/Critical Care Issues: Patient seen and examined. Resting comfortably in chair, eating breakfast. Offers no new complaints. His oxygen requirements are back to his baseline of 1.5 L. States that he slept well overnight, continues to expectorate sputum. Objective Current Medications: Current Medications Sig/Ann-Marie Start time Last Medication Dose Route Stop Time Status Admin Acetaminophen 650 MG Q6P PRN 03/26 0730 AC PO Amiodarone HCl 200 MG DAILY 03/24 1459 AC 03/31 PO 1000 Aspirin Buffered 81 MG DAILY 03/24 1459 AC 03/31 PO 0959 Atorvastatin Calcium 40 MG 1700 03/24 1700 AC 03/31 PO 1650 Budesonide/ 2 PUF BID 03/24 2200 AC 03/31 Formoterol Fumarate INH 2238 Carvedilol 25 MG BID 03/24 1501 AC 03/31 PO 2242 Cholecalciferol 1,000 IU DAILY 03/25 1000 AC 03/31 PO 0958 Cyanocobalamin 1,000 MCG DAILY 03/25 1000 AC 03/31 PO 0958 Docusate Sodium 100 MG BID PRN 03/24 1530 AC 03/30 PO 1020 Fenofibrate 145 MG DAILY 03/25 1000 AC 03/31 PO 0958 Furosemide 60 MG 7:30 AM, & 4:30 PM 03/31 1630 AC 04/01 IV 0822 Furosemide 40 MG BID 03/30 2200 DC 03/31 IV 1001 Gabapentin 600 MG Q8 03/24 1507 AC 04/01 PO 0559 Guaifenesin 600 MG Q12 03/24 1525 AC 03/31 PO 2237 Hydromorphone HCl 2 MG Q6P PRN 04/01 0815 AC PO Hydromorphone HCl 1 MG ONCE ONE 04/01 0815 DC 04/01 IV 04/01 0816 0822 Hydromorphone HCl 1 MG Q6P PRN 03/26 0730 DC 04/01 IV 0241 Hydromorphone HCl 2 MG Q6P PRN 03/25 0045 DC 03/31 IV 1901 Insulin Aspart 0 TIDAC/HS 03/24 1700 AC 04/01 SC 0822 Insulin Detemir 30 UNITS BID 03/24 2200 AC 03/31 SC 2238 Ipratropium [place] 2.5 ML EVERY 4 HRS/AWAKE 03/25 0800 AC 04/01 INH 0812 Lisinopril 5 MG DAILY 03/24 1508 AC 03/31 PO 0959 Magnesium Chloride 64 MG BID 03/25 1000 AC 03/31 PO 2237 Naloxone HCl 0.4 MG Q 5 MINUTES X 3 DO.. 03/24 1530 AC IV Nicotine 21 MG DAILY 03/24 1508 AC 03/31 TOP 1406 Patient Medication 1 ED .STK-MED ONE 03/31 1339 DC Teaching ED 03/31 1340 Polyethylene Glycol 17 GM AT BEDTIME PRN 03/24 1515 AC 03/30 PO 2234 Potassium Chloride 10 MEQ DAILY 03/25 1000 AC 03/31 PO 1000 Prednisone 10 MG 1000 04/02 1000 CAN PO 04/03 1001 Prednisone 20 MG 1000 03/31 1000 DC 03/31 PO 04/01 1001 0959 Warfarin Sodium 5 MG COUMADIN 1700 ONE 03/31 1700 DC 03/31 PO 03/31 1701 1650 Vital Signs & I&O Last 24 Hrs of Vitals and I&O: Vital Signs Date Time Temp Pulse Resp B/P B/P Pulse O2 O2 Flow FiO2 Mean Ox Delivery Rate 04/01 0815 97 Nasal 1.5L Cannula 04/01 0120 98.5 89 18 102/68 94 Nasal Cannula 03/31 2242 99 126/72 03/31 1614 96 Nasal 1.5L Cannula 03/31 1600 Nasal 1.5L Cannula 03/31 1530 98.3 92 20 98/70 93 Nasal 1.5L Cannula 03/31 1101 95 Nasal 1.5L Cannula 03/31 1000 83 122/60 03/31 1000 83 122/60 03/31 0959 83 122/60 Intake & Output 04/01 1600 04/01 0800 05 0000 Intake Total 740 Output Total 650 2400 Balance -650 -1660 Intake, IV 20 Intake, Oral 720 Output, Urine 650 2400 Patient 315 lb Weight Weight Chair scale Measurement Method Exam General Appearance: well developed/nourished, no apparent distress, alert, awake , comfortable, obese Head: atraumatic Ears, Nose, Throat: normal pharynx, normal ENT inspection, hearing grossly normal Neck: normal inspection Respiratory: chest non-tender, diffuse expiratory wheezing Cardiovascular: Irregular rate and rhythm, normal heart sounds, 2+ B/L LE weeping edema Abdomen: normal bowel sounds, soft, non-tender Back: normal inspection, normal range of motion Extremities: normal range of motion, weeping edema bilateral lower extremities, clean dry dressing in place Results Last 24 Hrs of Lab Results: Laboratory Tests 04/01/17 0620: Anion Gap 10, Estimated GFR > 60, BUN/Creatinine Ratio 44.2 H, Magnesium 2.0, PT 23.7 H, INR 2.28 H 03/31/17 0925: Anion Gap 12, Estimated GFR 56 L, BUN/Creatinine Ratio 41.5 H, Magnesium 1.8, PT 24.7 H, INR 2.[address] Scan Findings: PATIENT: LYNETTE SMITH PRESENT AGE: 61 PATIENT ACCOUNT NO: [id number] : 55 LOCATION: [facility] ORDERING PHYSICIAN: NGHIA PACE MD SERVICE DATE: 03/31/17 EXAM TYPE: CAT - CT CHEST WO IV CONTRAST EXAMINATION: CT CHEST WITHOUT CONTRAST CLINICAL INFORMATION: Persistent dyspnea. Has history of CHF and COPD. Presumptive diagnosis of pneumonia, effusion. COMPARISON: Multiple prior chest x-rays, most recent of which is dated 03/24/2017. CTA of the chest dated 05/22/2016 and 10/20/2013. TECHNIQUE: Multidetector volumetric CT imaging of the chest was obtained noncontrast. Sagittal and coronal reformations were obtained. DLP: 940.44 mGy-cm. FINDINGS: LUNGS: Chronic volume loss and linear reticular opacities and mild consolidative changes are seen in the right lower lobe and to a lesser extent in the left lower lobe and inferior right middle lobe, unchanged dating back to 03/21/2013. A tiny 0.2 cm noncalcified micronodule is seen in the right middle lobe (series 4, image 263) and in the right lower lobe (series 4, image 359), not appreciated on prior studies and of doubtful clinical significance. No suspicious focal lung nodule or mass. No effusion or pneumothorax. Central airways patent. Small linear strand of mucous is seen in the right mainstem bronchus (series 4, image 192) and left mainstem bronchus (series 4, image 218). LYMPHOVASCULAR STRUCTURES: Borderline aneurysmal dilatation of the ascending aorta is seen, measuring 3.9 cm, unchanged since 2012. Mild atherosclerotic calcifications of the aorta and great vessels and severe three-vessel coronary artery calcifications are noted. Heart size enlarged with primarily left heart enlargement seen. No pericardial effusion. There are borderline enlarged mediastinal lymph nodes and left hilar lymph nodes, including a 1.2 cm subcarinal lymph node and a 1.2 cm left hilar lymph node, both unchanged from 05/22/2016 and larger compared to 2013. No definite right hilar adenopathy or axillary adenopathy is appreciated. Small subcentimeter sized celiac axis lymph nodes are seen, unchanged. THYROID GLAND: Several thyroid nodules are seen, the largest of which is incompletely included in the mid left lobe, measuring 1.5 x 1.3 cm, poorly visualized on the prior exams due to extensive beam hardening artifact, and likely larger compared to approximately 1 cm in 2013. UPPER ABDOMEN: Included portions of the solid organs in the upper abdomen within normal limits. BONES: There is multilevel mild vertebral spondylosis seen in the lower cervical, upper and lower thoracic spine. No suspicious focal findings. IMPRESSION: 1. Chronic volume loss and atelectatic changes as seen in the right lower lobe, left lower lobe and right middle lobe, unchanged dating back to 2013. 2. No superimposed focal pneumonia or evidence of pleural effusion or pulmonary edema is seen. 3. Two tiny 0.2 cm micronodules in the right middle lobe and right lower lobe, not appreciated on prior studies and of doubtful clinical significance. No specific follow-up is required. No suspicious pulmonary nodule or mass is seen. 4. Borderline sized mediastinal and left hilar lymph nodes, unchanged from 05/22/2016 and likely reactive. 5. Multiple thyroid nodules, poorly assessed on prior exams. Further assessment with dedicated thyroid ultrasound is recommended. DICTATED BY: LEROY JACKSON MD DATE/TIME DICTATED:03/31/171650 LPC:SONDRA DATE/TIME TRANSCRIBED:03/31/171650 CONFIDENTIAL, DO NOT COPY WITHOUT APPROPRIATE AUTHORIZATION. <Electronically signed in Other Vendor System> SIGNED BY: LEROY JACKSON MD [id number] Impression/Plan Impression/Plan Impression/Plan: Assessment- 1. HFpEF, acute on chronic 2. Positive troponins, 2/2 demand ischemia, resolved 3. Supratherapeutic INR, resolved 4. Chronic A fib 5. IDDM 6. COPD exacerbation, mild, improving; CT chest yesterday negative for pleural effusion or focal pneumonia 7. Chronic venous stasis Plan- - Continue telemetry monitoring per cardiology - Continue Mucinex 600 mg twice a day - Complete prednisone taper - Continue monitoring blood sugars - Continue Symbicort 160/ 4.5 mcg, 2 puffs twice a day - IV diuresis per cardiology, maintain net negative fluid balance - Maintain O2 sat greater than 92% - Wound care, leg elevation - Continue bowel regiment - DVT prophylaxis at all times Anselmo HAYES MD 04/01/17 1009: Impression/Plan Impression/Plan Recommendations: * I have personally seen and examined the patient and agree with the resident's assessment and plan as above. The patient continues to be anxious over his lower extremity edema. He has chronic shortness of breath however this does not appear to have worsened. He has a cough which appears to be a productive of bland sputum. He had a CT scan of the chest that showed chronic stable findings without any new evidence of acute disease. We will continue the patient on Mucinex, prednisone taper, Symbicort, and supplemental oxygen which is at his baseline. He will continue to receive duo nebs. IV diuresis as per cardiology. The patient will continue with leg elevation, and bowel regimen. He will be maintained on DVT prophylaxis at all times. I recommend consideration for short -term rehabilitation if the patient qualifies.
[2017-04-01 09:00] VITALS: BP 118/60
[2017-04-01 11:30] VITALS: BP 120/64
--- NOTE | 2017-04-01 13:28 | PN- Cardiology ---
Subjective Subjective: Patient is hematologically stable. He continues to complain of significant leg discomfort and bilateral weeping leg sores. No new cardiovascular symptoms. Objective Vital Signs and I&Os Vital Signs Date Time Temp Pulse Resp B/P B/P Pulse O2 O2 Flow FiO2 Mean Ox Delivery Rate 04/01 1139 78 120/64 04/01 1130 98.0 78 20 120/64 95 Nasal 1.5L Cannula 04/01 0900 98.2 74 16 118/60 97 Nasal 2.0L Cannula 04/01 0815 97 Nasal 1.5L Cannula 04/01 0800 Nasal 2.0L Cannula 04/01 0120 98.5 89 18 102/68 94 Nasal Cannula 03/31 2242 99 126/72 03/31 1614 96 Nasal 1.5L Cannula 03/31 1600 Nasal 1.5L Cannula 03/31 1530 98.3 92 20 98/70 93 Nasal 1.5L Cannula Intake & Output 04/01 1600 04/01 0800 04/01 0000 03/31 1600 03/31 0800 03/31 0000 Intake Total 740 400 600 Output Total 650 2400 950 850 900 Balance -650 -1660 -950 -450 -300 Intake, IV 20 Intake, Oral 720 600 Intake, Tube 400 Feeding Number 1 Bowel Movements Output, Urine 650 2400 950 850 900 Patient 315 lb 317 lb Weight Weight Chair scale Chair scale Measurement Method Physical Exam: General Exam: AAOx3, No acute distress, Skin: No rashes, no breakdown HEENT: PERRLA, EOMI Neck: Supple, No JVD, carotids normal bilaterally CVS: Reg Rate, Normal S1,S2, distant heart sounds, 1 to 2/6 systolic murmur Resp: Bilateral rhonchi Abdomen: Soft, No tenderness, Normal Bowel Sounds Neuro: Normal/nonfocal Extremities: No cyanosis, pedal edema 1-2+ bilaterally, bilateral distal lower extremity skin blistering, small ulcerations seem to be granulating. No evidence of active infection. Current Medications: Current Medications Sig/Ann-Marie Start time Last Medication Dose Route Stop Time Status Admin Acetaminophen 650 MG Q6P PRN 03/26 0730 AC PO Amiodarone HCl 200 MG DAILY 03/24 1459 AC 04/01 PO 1139 Aspirin Buffered 81 MG DAILY 03/24 1459 AC 04/01 PO 1140 Atorvastatin Calcium 40 MG 1700 03/24 1700 AC 03/31 PO 1650 Budesonide/ 2 PUF BID 03/24 2200 AC 04/01 Formoterol Fumarate INH 1144 Carvedilol 25 MG BID 03/24 1501 AC 04/01 PO 1140 Cholecalciferol 1,000 IU DAILY 03/25 1000 AC 04/01 PO 1140 Cyanocobalamin 1,000 MCG DAILY 03/25 1000 AC 04/01 PO 1140 Docusate Sodium 100 MG BID PRN 03/24 1530 AC 03/30 PO 1020 Fenofibrate 145 MG DAILY 03/25 1000 AC 04/01 PO 1140 Furosemide 60 MG 7:30 AM, & 4:30 PM 03/31 1630 AC 04/01 IV 0822 Gabapentin 600 MG Q8 03/24 1507 AC 04/01 PO 0559 Guaifenesin 600 MG Q12 03/24 1525 AC 04/01 PO 1140 Hydromorphone HCl 2 MG Q6P PRN 04/01 0815 AC 04/01 PO 1153 Hydromorphone HCl 1 MG ONCE ONE 04/01 0815 DC 04/01 IV 04/01 0816 0822 Hydromorphone HCl 1 MG Q6P PRN 03/26 0730 DC 04/01 IV 0241 Hydromorphone HCl 2 MG Q6P PRN 03/25 0045 DC 03/31 IV 1901 Insulin Aspart 0 TIDAC/HS 03/24 1700 AC 04/01 SC 1307 Insulin Detemir 30 UNITS BID 03/24 2200 AC 04/01 SC 1142 Ipratropium [place] 2.5 ML EVERY 4 HRS/AWAKE 03/25 0800 AC 04/01 INH 1150 Lisinopril 5 MG DAILY 03/24 1508 AC 04/01 PO 1144 Magnesium Chloride 64 MG BID 03/25 1000 AC 04/01 PO 1143 Naloxone HCl 0.4 MG Q 5 MINUTES X 3 DO.. 03/24 1530 AC IV Nicotine 21 MG DAILY 03/24 1508 04/01 TOP 1142 Patient Medication 1 ED .STK-MED ONE 03/31 1339 DC Teaching ED 03/31 1340 Polyethylene Glycol 17 GM AT BEDTIME PRN 03/24 1515 AC 03/30 PO 2234 Potassium Chloride 10 MEQ DAILY 03/25 1000 AC 04/01 PO 1140 Warfarin Sodium 5 MG COUMADIN 1700 ONE 03/31 1700 DC 03/31 PO 03/31 1701 1650 Results Last 48 Hrs of Labs/Mics: Laboratory Tests 04/01/17 0620: Anion Gap 10, Estimated GFR > 60, BUN/Creatinine Ratio 44.2 H, Magnesium 2.0, PT 23.7 H, INR 2.28 H 03/31/17 0925: Anion Gap 12, Estimated GFR 56 L, BUN/Creatinine Ratio 41.5 H, Magnesium 1.8, PT 24.7 H, INR 2.37 H Assessment/Plan Assessment/Plan Assessment: 1. LE edema with chronic venous stasis 2. Elevated troponin -troponin was 0.4 on admission, subsequently decreasing. Possible demand ischemia, possibly related to fall with elevated CPK. The patient will eventually require a follow-up pharmacologic nuclear stress test. This can be performed as an outpatient. 3. Supratherapeutic INR 4. Atrial fibrillation 5. COPD exacerbation 6. TOMASZ 7. Obesity 8. Diabetes Recommendations: - Continue IV lasix BID over the next 24 hours with close monitoring of intakes, outputs, repeat rate in the morning, and 1500 mL fluid resection. - Maintain daily negative fluid balance of 6605-4148 cc - Continue as per Dr. Esparza -I discussed the situation in detail with the patient. For now, if stable, the plan is to discharge the patient home tomorrow with close outpatient follow-up, visits to the CHF clinic and home care as needed. The patient understands the importance of leg elevation at home as well as the importance of monitoring daily weights and close maintenance of a negative fluid balance at home. Visits to the CHF clinic will assist with this as well as allow us to check his labs weekly. As per the patient, transportation may be an issue.
[2017-04-01 15:30] VITALS: BP 100/60
[2017-04-02 01:02] VITALS: BP 110/60
--- NOTE | 2017-04-02 06:52 | PN- Housestaff ---
Subjective Follow-up For: CHF Exacerbation Complaints: "can't breathe well" Tele-Events Since Last Visit: Atrial fibrillation with heart rate ranging from 73-102. Subjective: I followed up and examined the patient today. He is resting in his recliner, shivering because of the low temperature in the room, and complains that he is not being able to breathe properly, his vitals have been stable overnight, telemetry and noted as above, he has been walking around, but no overnight events otherwise. Negative 2235 ml on 04/01/17. Patient denies any fever, chest pain, palpitation, chest heaviness, nausea, vomiting. Review of Systems Constitutional: Reports: see HPI, chills (room tep is cold). Denies: fever. Objective Last 24 Hrs of Vital Signs/I&O Vital Signs Date Time Temp Pulse Resp B/P B/P Pulse O2 O2 Flow FiO2 Mean Ox Delivery Rate 04/02 0602 95 Nasal 1.5L Cannula 04/02 0102 99.6 81 18 110/60 97 Nasal 1.5L Cannula 04/02 0000 Nasal 1.5L Cannula 04/01 2057 81 104/64 / 1650 96 Nasal 1.5L Cannula 04/01 1600 Nasal 1.5L Cannula 04/01 1530 98.4 100 18 100/60 95 Nasal 1.5L Cannula 04/01 1139 78 120/64 05/03 1130 98.0 78 20 120/64 95 Nasal 1.5L Cannula 04/01 0900 98.2 74 16 118/60 97 Nasal 2.0L Cannula 04/01 0815 97 Nasal 1.5L Cannula 04/01 0800 Nasal 2.0L Cannula Intake & Output 04/02 0800 /04 0000 04/01 1600 Intake Total 200 615 600 Output Total 101 402 0469 Balance - Intake, IV 15 Intake, Oral 200 600 600 Output, Urine 624 034 4553 Physical Exam General Appearance: Alert, Oriented X3, Cooperative, Mild Distress (tachypneic) Other Physical Findings: Head: Normocephalic, atraumatic Eyes: Pupils normal in size, regular, reacting to light and accommodation, EOM normal Ears: B/l normal on inspection Nose: Normal on inspection Throat/mouth: Moist mucosa Neck: Supple, full range of motion, no thyromegaly Heart: Regular rate, irregular rhythm Lung: coarse crackles heard b/l, no wheezes, pt in mild-mod resp distress Abd: Soft, non-tender, no distention appreciated Back: Normal range of motion Extremities: Bilateral lower limb edema is just the same if not better than yesterday and has weeping wounds that has been well dressed Neurologic: Alert, oriented x3, grossly intact Skin: Warm and dry, b/l legs have blisters and ulcers, well dressed Psychiatric: Calm, cooperative, coherant Current Medications: Current Medications Sig/Ann-Marie Start time Last Medication Dose Route Stop Time Status Admin Acetaminophen 650 MG Q6P PRN 03/26 0730 AC PO Amiodarone HCl 200 MG DAILY 03/24 1459 AC 04/01 PO 1139 Aspirin Buffered 81 MG DAILY 03/24 1459 AC 04/01 PO 1140 Atorvastatin Calcium 40 MG 1700 03/24 1700 AC 04/01 PO 1648 Budesonide/ 2 PUF BID 03/24 220 AC 04/01 Formoterol Fumarate INH 2057 Carvedilol 25 MG BID 03/24 1501 AC 04/01 PO 2057 Cholecalciferol 1,000 IU DAILY 03/25 1000 AC 04/01 PO 1140 Cyanocobalamin 1,000 MCG DAILY 03/25 1000 AC 04/01 PO 1140 Docusate Sodium 100 MG BID PRN 03/24 1530 AC 03/30 PO 1020 Fenofibrate 145 MG DAILY 03/25 1000 AC 04/01 PO 1140 Furosemide 60 MG 7:30 AM, & 4:30 PM 03/31 1630 AC 05 IV 1648 Gabapentin 600 MG Q8 03/24 1507 AC 04/02 PO 0621 Guaifenesin 600 MG Q12 03/24 1525 AC 04/01 PO 2057 Hydromorphone HCl 2 MG Q6P PRN 04/01 0815 AC 04/02 PO 0621 Hydromorphone HCl 1 MG ONCE ONE 04/01 0815 DC 04/01 IV 04/01 0816 0822 Hydromorphone HCl 1 MG Q6P PRN 03/26 0730 DC 04/01 IV 0241 Insulin Aspart 0 TIDAC/HS 03/24 1700 AC 04/01 SC 1659 Insulin Detemir 30 UNITS BID 03/24 220 AC 04/01 SC 205 Ipratropium [place] 2.5 ML EVERY 4 HRS/AWAKE 03/25 0800 AC 04/02 INH 0553 Lisinopril 5 MG DAILY 03/24 1508 AC 04/01 PO 1144 Magnesium Chloride 64 MG BID 03/25 1000 AC 04/01 PO 2057 Naloxone HCl 0.4 MG Q 5 MINUTES X 3 DO.. 03/24 1530 AC IV Nicotine 21 MG DAILY 03/24 1508 AC 04/01 TOP 1142 Polyethylene Glycol 17 GM AT BEDTIME PRN 03/24 1515 AC 04/01 PO 2102 Potassium Chloride 10 MEQ DAILY 03/25 1000 AC 04/01 PO 1140 Warfarin Sodium 5 MG COUMADIN 1700 ONE 04/01 1700 DC 04/01 PO 04/01 1701 1648 Last 24 Hrs of Lab/[place] Results Last 24 Hrs of Labs/Mics: Laboratory Tests 04/02/17 0656: Sodium Pending, Potassium Pending, Chloride Pending, Carbon Dioxide Pending, Anion Gap Pending, BUN Pending, Creatinine Pending, BUN/Creatinine Ratio Pending , PT Pending, INR Pending Assessment/Plan Assessment: 61 y/o M with PMHx of COPD and TOMASZ on home oxygen (1.5 L at daytime and 2 L at night), HFpEF and atrial fibrillation on warfarin who is admitted for acute on chronic diastolic CHF. #Acute on chronic HFpEF: Persistent leg edema despite significant diuresis since admission. Wound in the legs are just the same today and still doesn't appear infected. * Continue telemetry monitoring. * on Lasix to 60 mg PO BID. * Monitor I/Os and daily BMPs. * Held Coreg for the morning due to low BP. #Atrial fibrillation: Heart rate well-controlled. INR 2.05 today. * Continue to monitor INR daily and dose warfarin accordingly to keep INR 2-2.5. * Administer 5 mg of warfarin this evening. #COPD: Sputum culture with mixed jocelyne. * Chest CT scan, did NOT show acute pathology, but did mention wanting loss and atelectatic changes, micronodules, borderline sized mediastinal and left hilar lymph nodes, multiple thyroid nodules. * Continue Mucinex 600 mg PO BID. * Steriod 10mg PO for two days ordered after discussing with pulm service, as it was stopped two days ago. Of note, he does not have wheezes though. * TRC/nebs. * Provide supplemental oxygen to keep SpO2 > 92%. * Continue Symbicort 2 puffs BID. #Insulin-dependent T2DM: * Monitor blood sugars closely while on steroids. * Continue Levemir 30 units SQ BID. * Accu-checks and high-dose sliding scale Novolog TIDAC. * Blood sugar this morning was 113, will probably get better as steroids has been stopped since yesterday Diet: Consistent Carbohydrate 3 with 2 g Na Restriction, 1500 mL fluid restriction in 24 hours has been placed from today. DVT PPx: Warfarin and ALPS CODE: FULL CODE Problem List: 1. CHF exacerbation 2. (HFpEF) heart failure with preserved ejection fraction 3. Insulin dependent type 2 diabetes mellitus 4. COPD (chronic obstructive pulmonary disease) Pain Ratin Pain Location: legs Pain Goal: Pain 4 or less Pain Plan: po home meds plus prn meds Tomorrow's Labs & Rationales: INR, CBC, BEP po home meds plus prn meds Tomorrow's Labs & Rationales: INR, CBC, BEP
--- NOTE | 2017-04-02 07:28 | PN- Student ---
Subjective Subjective: This morning Mr. Johnson is complaining of feeling bad. He is having chills and has more difficulty breathing. He is sitting in his chair shivering with sweatshirt and blanket over him. The room temperature was set at 66 degrees so that may have something to do with his symptoms. Objective Objective: Vital Signs Date Time Temp Pulse Resp B/P B/P Pulse O2 O2 Flow FiO2 Mean Ox Delivery Rate 04/02 0602 95 Nasal 1.5L Cannula 04/02 0102 99.6 81 18 110/60 97 Nasal 1.5L Cannula 04/02 0000 Nasal 1.5L Cannula 04/01 2057 81 104/64 / 1650 96 Nasal 1.5L Cannula 04/01 1600 Nasal 1.5L Cannula 04/01 1530 98.4 100 18 100/60 95 Nasal 1.5L Cannula 04/01 1139 78 120/64 / 1130 98.0 78 20 120/64 95 Nasal 1.5L Cannula 04/01 0900 98.2 74 16 118/60 97 Nasal 2.0L Cannula 04/01 0815 97 Nasal 1.5L Cannula 04/01 0800 Nasal 2.0L Cannula Intake & Output 04/02 0800 /04 0000 03 1600 Intake Total 200 615 600 Output Total 434 112 9250 Balance - Intake, IV 15 Intake, Oral 200 600 600 Output, Urine 269 508 4827 Telemetry- atrial fibrillation 73-102 PE: General appearance- alert and oriented x3, seated in chair, he looks like he is cold and somewhat uncomfortable. He is shivering and having some difficulty breathing. HEENT- atraumatic, RENNY, mucus membranes moist and pink Neck- supple, no JVD, no thyromegaly or lymphadenopathy, trachea is midline CV- S1 and S2 heard, irregularly irregular, no murmurs rubs or gallops noted on auscultation Chest- wheezes are decreased following breathing treatment, has bibasilar rhonchi that were not present yesterday. good air movement but somewhat labored Abd- soft, non-tender to palpation Skin- warm and well perfused, multiple blisters on anterior legs bilaterally with bandaged abrasions on both lower extremities, wounds were not visualized today. Also has scratch on right arm and left elbow abrasion. Ext- 2+ pitting edema bilaterally on Lower extremity. Edema has slight to no improvement from yesterday. Results Results: Laboratory Tests 04/02/17 0656: Anion Gap 9, Estimated GFR 56 L, BUN/Creatinine Ratio 39.2 H, PT 21.4 H, INR 2.05 H 04/01/17 0620: Anion Gap 10, Estimated GFR > 60, BUN/Creatinine Ratio 44.2 H, Magnesium 2.0, PT 23.7 H, INR 2.28 H 03/31/17 0925: Anion Gap 12, Estimated GFR 56 L, BUN/Creatinine Ratio 41.5 H, Magnesium 1.8, PT 24.7 H, INR 2.37 H Microbiology 04/02 954 BLOOD: Blood Culture - COLB 04/02 954 BLOOD: Blood Culture - COLB Assessment/Plan Assessment: Mr. Johnson is a 61 yo M with a PMH of A-fib, CHF, CAD, HTN, Hyperlipidemia, an OH (stent in 2003), COPD (on 2L NC at home), Bronchitis, and diabetes mellitus. He was admitted to telemetry, from Dr. Cosby's office visit, on 03/24 with worsening dyspnea, lower extremity pain, and weeping sores on both lower extremities. He fell at home 3 days ago while trying to go to the bathroom and was unable to get up for several hours. He sustained numerous abrasions on both lower extemities while trying to get off of the floor which have been weeping fluid. He described his initial leg pain as 17/15 on a pain scale and was 10/15 on admission. During the admission he also reported a cough that has been productive of green phlegm plugs. He denied any chest pain but did state that he had chills the night that he fell. Today Mr. Johnson seems to have worsened in condition. He complains of chills and feeling bad, he has a temperature of 99.6 a WBC count of 12.6 and is shivering, the room is set at 66. He also has more difficutly breathing with bibasilar rhonchi heard on auscultation and he is coughing up pale yellow phlegm. His legs seem to be slightly less edematous today and his I&Os show that he is diuresing in excess of 2L per day. It is possible that some of his symptoms could be fabricated so we will continue to monitor him throughout the day. Current Medications Sig/Ann-Marie Start time Last Medication Dose Route Stop Time Status Admin Acetaminophen 650 MG Q6P PRN 03/26 0730 AC PO Amiodarone HCl 200 MG DAILY 03/24 1459 AC 04/01 PO 1139 Aspirin Buffered 81 MG DAILY 03/24 1459 AC 04/01 PO 1140 Atorvastatin Calcium 40 MG 1700 03/24 1700 AC 04/01 PO 1648 Budesonide/ 2 PUF BID 03/24 2200 AC 04/01 Formoterol Fumarate INH 2057 Carvedilol 25 MG BID 03/24 1501 AC 04/01 PO 2057 Cholecalciferol 1,000 IU DAILY 03/25 1000 AC 04/01 PO 1140 Cyanocobalamin 1,000 MCG DAILY 03/25 1000 AC 04/01 PO 1140 Docusate Sodium 100 MG BID PRN 03/24 1530 AC 03/30 PO 1020 Fenofibrate 145 MG DAILY 03/25 1000 AC 04/01 PO 1140 Furosemide 60 MG 7:30 AM, & 4:30 PM 03/31 1630 AC 04/01 IV 1648 Gabapentin 600 MG Q8 03/24 1507 AC 04/02 PO 0621 Guaifenesin 600 MG Q12 03/24 1525 AC 04/01 PO 205 Hydromorphone HCl 2 MG Q6P PRN 04/01 0815 AC 04/02 PO 0621 Hydromorphone HCl 1 MG ONCE ONE 04/01 0815 DC 04/01 IV 04/01 0816 0822 Hydromorphone HCl 1 MG Q6P PRN 03/26 0730 DC 04/01 IV 0241 Insulin Aspart 0 TIDAC/HS 03/24 1700 AC 04/01 SC 1659 Insulin Detemir 30 UNITS BID 03/24 2200 AC 04/01 SC 205 Ipratropium [place] 2.5 ML EVERY 4 HRS/AWAKE 03/25 0800 AC 04/02 INH 0553 Lisinopril 5 MG DAILY 03/24 1508 AC 04/01 PO 1144 Magnesium Chloride 64 MG BID 03/25 1000 AC 04/01 PO 205 Naloxone HCl 0.4 MG Q 5 MINUTES X 3 DO.. 03/24 1530 AC IV Nicotine 21 MG DAILY 03/24 1508 05/03 TOP 1142 Polyethylene Glycol 17 GM AT BEDTIME PRN 03/24 1515 AC 04/01 PO 2102 Potassium Chloride 10 MEQ DAILY 03/25 1000 AC 04/01 PO 1140 Warfarin Sodium 5 MG COUMADIN 1700 ONE 04/01 1700 DC 04/01 PO 04/01 1701 1648 Plan: His pain medication was changed yesterday to 2mg PO Q6P to control pain. He states that he is still hurting, however there is no plan to alter his pain medication at this point. We will continue to diurese as per Dr. Cosby's order (target 2804-6341 cc/day) as well as put him on fluid restriction of 1500 mL per day. We will also be following Dr. Morgan orders from pulmonology as well. Overall his edema and respiratory status has improved since his admission. After speaking with cardiology today they feel that its possible to discharge him home with PO lasix to manage his edema, as well as have him visit the CHF clinic 2 times per week. Will also follow cardiology and pulmonology recommendations regarding discharge as well. Recommendations: * Net negative fluid balance since admission * Recorded weight 321lbs up from 315 yesterday. Recommend repeat weight using the same seated scale * Transition to PO furosemide 60mg BID with close out patient follow up at the CHF clinic * Hemodynamically stable at this time. Continue: lisnopril 5mg, carvedilol 25mg BID, amiodarone 200mg daily * Coumadin dosing for INR 2-3 * In the setting of chills reported last night, send a repeat set of blood cultures but defer starting on antibiotics at this time. CBC for now to assess for infectious source * Pulmonology on board at this time. Consider incentive spirometry Problem List: 1. Wounds- continue with wound care protocol. 2. LE edema with chronic venous stasis- increase IV lasix to 60 mg BID and monitor I&Os 3. Elevated troponins- continue to monitor labs, latest show downward trend 4. Supratherapeutic INR- dose coumadin 5 mg PO daily to target of 2-3 (today INR was 2.28) 5. Atrial fibrillation- continue aspirin and coumadin and dose for target INR of 2-3 6. COPD exacerbation- continue home medications. Continue oxygen therapy at 1.5L NC during day and 2.0L at night. 7. Obesity- Educate patient on healthy diet strategies. 8. Diabetes- Diabetic Diet. continue to monitor glucose and continue home medication Diet: heart healthy diet DVT prophylaxis: Warfarin Code Status: full code
[2017-04-02 08:21] VITALS: BP 130/70
[2017-04-02 08:24] LABS: PT 21.4 SEC (9.4-12.5)
--- NOTE | 2017-04-02 08:31 | PN- Pulmonary ---
FREIDA VILLASENOR,STACY 04/02/17 0830: Subjective HPI/Critical Care Issues: Patient seen and examined. Sleeping in his chair. States that he feels a little short of breath this morning. Saturating well on 2 L nasal cannula. Denies any chest pain, nausea, vomiting, diarrhea fevers or chills. Objective Current Medications: Current Medications Sig/Ann-Marie Start time Last Medication Dose Route Stop Time Status Admin Acetaminophen 650 MG Q6P PRN 03/26 0730 AC PO Amiodarone HCl 200 MG DAILY 03/24 1459 AC 04/01 PO 1139 Aspirin Buffered 81 MG DAILY 03/24 1459 AC 04/01 PO 1140 Atorvastatin Calcium 40 MG 1700 03/24 1700 AC 04/01 PO 1648 Budesonide/ 2 PUF BID 03/24 2200 AC 04/01 Formoterol Fumarate INH 2057 Carvedilol 25 MG BID 03/24 1501 AC 04/01 PO 2057 Cholecalciferol 1,000 IU DAILY 03/25 1000 AC 04/01 PO 1140 Cyanocobalamin 1,000 MCG DAILY 03/25 1000 AC 04/01 PO 1140 Docusate Sodium 100 MG BID PRN 03/24 1530 AC 03/30 PO 1020 Fenofibrate 145 MG DAILY 03/25 1000 AC 04/01 PO 1140 Furosemide 60 MG 7:30 AM, & 4:30 PM 03/31 1630 AC 04/01 IV 1648 Gabapentin 600 MG Q8 03/24 1507 AC 04/02 PO 0621 Guaifenesin 600 MG Q12 03/24 1525 AC 04/01 PO 205 Hydromorphone HCl 2 MG Q6P PRN 04/01 0815 AC 04/02 PO 0621 Insulin Aspart 0 TIDAC/HS 03/24 1700 AC 04/01 SC 1659 Insulin Detemir 30 UNITS BID 03/24 2200 AC 04/01 SC 205 Ipratropium [place] 2.5 ML EVERY 4 HRS/AWAKE 03/25 0800 AC 04/02 INH 0553 Lisinopril 5 MG DAILY 03/24 1508 AC 04/01 PO 1144 Magnesium Chloride 64 MG BID 03/25 1000 AC 04/01 PO 205 Naloxone HCl 0.4 MG Q 5 MINUTES X 3 DO.. 03/24 1530 AC IV Nicotine 21 MG DAILY 03/24 1508 AC 04/01 TOP 1142 Polyethylene Glycol 17 GM AT BEDTIME PRN 03/24 1515 AC 04/01 PO 2102 Potassium Chloride 10 MEQ DAILY 03/25 1000 AC 04/01 PO 1140 Warfarin Sodium 5 MG COUMADIN 1700 ONE 04/01 1700 DC 04/01 PO 04/01 1701 1648 Vital Signs & I&O Last 24 Hrs of Vitals and I&O: Vital Signs Date Time Temp Pulse Resp B/P B/P Pulse O2 O2 Flow FiO2 Mean Ox Delivery Rate 04/02 821 99.1 98 22 130/70 92 Nasal 2.0L Cannula 04/02 0602 95 Nasal 1.5L Cannula 04/02 0102 99.6 81 18 110/60 97 Nasal 1.5L Cannula 04/02 0000 Nasal 1.5L Cannula 04/01 2057 81 104/64 04/01 1650 96 Nasal 1.5L Cannula 04/01 1600 Nasal 1.5L Cannula 04/01 1530 98.4 100 18 100/60 95 Nasal 1.5L Cannula 04/01 1139 78 120/64 04/01 1130 98.0 78 20 120/64 95 Nasal 1.5L Cannula 04/01 0900 98.2 74 16 118/60 97 Nasal 2.0L Cannula Intake & Output 04/02 1600 04 0800 04/02 0000 Intake Total 200 615 Output Total 500 850 700 Balance -500 -650 -85 Intake, IV 15 Intake, Oral 200 600 Output, Urine 500 850 700 Patient 321 lb Weight Weight Standing Scale Measurement Method Exam General Appearance: well developed/nourished, no apparent distress, alert Ears, Nose, Throat: normal pharynx, normal ENT inspection Respiratory: chest non-tender, expiratory wheezing Cardiovascular: irregular rate and rhythm, normal heart sounds, 2+ b/l LE weeping edema Abdomen: normal bowel sounds, soft, non-tender Results Last 24 Hrs of Lab Results: Laboratory Tests 04/02/17 0656: Anion Gap 9, Estimated GFR 56 L, BUN/Creatinine Ratio 39.2 H, PT 21.4 H, INR 2.05 H Impression/Plan Impression/Plan Impression/Plan: Assessment- 1. HFpEF, acute on chronic 2. Positive troponins, 2/2 demand ischemia, resolved 3. Supratherapeutic INR, resolved; INR this morning 2.05 4. Chronic A fib 5. IDDM 6. COPD exacerbation, improving 7. Chronic venous stasis Plan- - Continue telemetry monitoring per cardiology - Continue Mucinex 600 mg twice a day - Complete prednisone taper; 10 mg PO today (04/02) and tomorrow (04/03), then stop - Continue Symbicort 160/ 4.5 mcg, 2 puffs twice a day - IV diuresis per cardiology, maintain net negative fluid balance, as today he was -2235 mL - Maintain O2 sat greater than 92% - Wound care, leg elevation - DVT prophylaxis at all times Anselmo HAYES MD 04/02/17 0831: Impression/Plan Impression/Plan Recommendations: * I have personally seen and examined the patient and agree with the resident's assessment and plan as above. The patient continues to be anxious over his lower extremity edema. He has chronic shortness of breath. He has a cough which appears to be a productive of bland sputum. We will continue the patient on Mucinex, prednisone taper, Symbicort, Spiriva and supplemental oxygen which is at his baseline. He will continue to receive duo nebs. IV diuresis as per cardiology. The patient will continue with leg elevation, and bowel regimen. He will be maintained on DVT prophylaxis at all times. Discharge planning is underway.
--- NOTE | 2017-04-02 08:45 | PN- Cardiology ---
Subjective Subjective: Inteval history: There were no major events over the past 24hrs. THis morning he complains of feeling worse than the past few days. He reports chest congestion, chills last night, poor appetite this morning and leg swelling. Review of Systems Constitutional: Reports: see HPI. EENTM: Reports: no symptoms. Respiratory: Reports: see HPI. Gastrointestinal: Reports: see HPI. Musculoskeletal: Reports: see HPI. Objective Vital Signs and I&Os Vital Signs Date Time Temp Pulse Resp B/P B/P Pulse O2 O2 Flow FiO2 Mean Ox Delivery Rate 04/02 0821 99.1 98 22 130/70 92 Nasal 1.5L Cannula 04/02 0800 Nasal 1.5L Cannula 04/02 0602 95 Nasal 1.5L Cannula 04/02 0102 99.6 81 18 110/60 97 Nasal 1.5L Cannula 04/02 0000 Nasal 1.5L Cannula 04/01 2057 81 104/64 04/01 1650 96 Nasal 1.5L Cannula 04/01 1600 Nasal 1.5L Cannula 04/01 1530 98.4 100 18 100/60 95 Nasal 1.5L Cannula 04/01 1139 78 120/64 04/01 1130 98.0 78 20 120/64 95 Nasal 1.5L Cannula Intake & Output 04/02 1600 04/02 0800 /04 0000 04/01 1600 04/01 0800 04/01 0000 Intake Total 200 615 600 740 Output Total 500 255 737 0899 650 2400 Balance -500 - -650 -1660 Intake, IV 15 20 Intake, Oral 200 600 600 720 Output, Urine 500 661 126 9769 650 2400 Patient 321 lb 315 lb Weight Weight Standing Scale Chair scale Measurement Method Physical Exam General Appearance: comfortable, Patient is sitting in the recliner asleep and in no distress, easily arousable to verbal commands Head: normal appearance Ears, Nose, Throat: normal ENT inspection, hearing grossly normal Respiratory: no respiratory distress, Inspiratory stridor present bilaterally Cardiovascular: irregularly irregular Abdomen: normal bowel sounds, soft, non-tender Extremities: 2+ pitting edema in BL LE with noticeble improvement over the past 7 days. Skin ulcerations covered in clean bandages at this time without any evidence of weeping Current Medications: Current Medications Sig/Ann-Marie Start time Last Medication Dose Route Stop Time Status Admin Acetaminophen 650 MG Q6P PRN 03/26 0730 AC PO Amiodarone HCl 200 MG DAILY 03/24 1459 AC 04/01 PO 1139 Aspirin Buffered 81 MG DAILY 03/24 1459 AC 04/01 PO 1140 Atorvastatin Calcium 40 MG 1700 03/24 1700 AC 04/01 PO 1648 Budesonide/ 2 PUF BID 03/24 2200 AC 04/01 Formoterol Fumarate INH 2058 Carvedilol 25 MG BID 03/24 1501 AC 04/01 PO 205 Cholecalciferol 1,000 IU DAILY 03/25 1000 AC 04/01 PO 1140 Cyanocobalamin 1,000 MCG DAILY 03/25 1000 AC 04/01 PO 1140 Docusate Sodium 100 MG BID PRN 03/24 1530 AC 03/30 PO 1020 Fenofibrate 145 MG DAILY 03/25 1000 AC 04/01 PO 1140 Furosemide 60 MG 7:30 AM, & 4:30 PM 03/31 1630 AC 04/02 IV 0838 Gabapentin 600 MG Q8 03/24 1507 AC 04/02 PO 0621 Guaifenesin 600 MG Q12 03/24 1525 AC 04/01 PO 205 Hydromorphone HCl 2 MG Q6P PRN 04/01 0815 AC 04/02 PO 0621 Insulin Aspart 0 TIDAC/HS 03/24 1700 AC 04/02 SC 1036 Insulin Detemir 30 UNITS BID 03/24 2200 AC 04/01 SC 205 Ipratropium [place] 2.5 ML EVERY 4 HRS/AWAKE 03/25 0800 AC 04/02 INH 0553 Lisinopril 5 MG DAILY 03/24 1508 AC 04/01 PO 1144 Magnesium Chloride 64 MG BID 03/25 1000 AC 04/01 PO 205 Naloxone HCl 0.4 MG Q 5 MINUTES X 3 DO.. 03/24 1530 AC IV Nicotine 21 MG DAILY 03/24 1508 04/01 TOP 1142 Polyethylene Glycol 17 GM AT BEDTIME PRN 03/24 1515 AC 04/01 PO 210 Potassium Chloride 10 MEQ DAILY 03/25 1000 AC 04/01 PO 1140 Prednisone 10 MG DAILY 04/02 1000 AC PO 04/03 1001 Warfarin Sodium 5 MG COUMADIN 1700 ONE 04/02 1700 AC PO 04/02 1701 Warfarin Sodium 5 MG COUMADIN 1700 ONE 04/01 1700 DC 04/01 PO 04/01 1701 1648 Results Last 48 Hrs of Labs/Mics: Laboratory Tests 04/02/17 0656: Anion Gap 9, Estimated GFR 56 L, BUN/Creatinine Ratio 39.2 H, PT 21.4 H, INR 2.05 H 04/01/17 0620: Anion Gap 10, Estimated GFR > 60, BUN/Creatinine Ratio 44.2 H, Magnesium 2.0, PT 23.7 H, INR 2.28 H Assessment/Plan Assessment/Plan 61 y/o gentleman with a PMH of TOMASZ baseline home oxygen 1.5 L and nocturnal 2L, emphysema, pulmonary HTN, obesity, previous tobacco use, CAD s/p stent placement 2003, Atrial fib (on amiodarone and coumadin), 3 prior unscuccessful cardioversion attempts, HLD, type II DM complicated w/ neuropathy, LE stasis dermatitis who is admitted after complaints of progressive lower extremity swelling, intermittent productive cough with yellow sputum and fall. Problem list: 1. LE edema with chronic venous stasis 2. Elevated troponin -troponin was 0.4 on admission, subsequently decreasing. Possible demand ischemia, possibly related to fall with elevated CPK. The patient will eventually require a follow-up pharmacologic nuclear stress test. This can be performed as an outpatient. 3. Supratherapeutic INR 4. Atrial fibrillation 5. COPD exacerbation 6. TOMASZ 7. Obesity 8. Diabetes Recommendations: * Net negative fluid balance since admission * Recorded weight 321lbs up from 315 yesterday. Recommend repeat weight using the same seated scale * Transition to PO furosemide 60mg BID with close out patient follow up at the CHF clinic * Hemodynamically stable at this time. COntinue: lisnopril 5mg, carvedilol 25mg BID, amiodarone 200mg daily * Coumadin dosing for INR 2-3 * In the setting of chills reported last night, send a repeat set of blood cultures but defer starting on antibiotics at this time. CBC for now to assess for infectious source * Pulmonology on board at this time. Consider incentive spirometry Continue telemetry? Yes
--- NOTE | 2017-04-02 12:16 | NUR ---
Referral received yesterday from Quynh, CCM of case management. Patient is a 61 terry old man, admitted to the hospital on 03/24/17 with positive troponins. Referral received to assess whether or not a referral to Care would be appropriate. Case discussed with Dr. Vidal, who agreed that patient is not mentally ill, but is in need of additonal supports as he is very unhappy at home. Patient has agreed to home care services, and a request for [facility] was made. I met with patient this am. He was up and out of bed, awake and alert; very guarded and would not agree to a referral to outpatient psychiatry at this time. He was agreeable to take my business card and said he would call if something came up.
[2017-04-02 12:58] LABS: ABSOLUTE BASOPHIL COUNT 0 /CUMM (0.0-0.2); ABSOLUTE EOSINOPHIL COUNT 0.3 /CUMM (0.0-0.7); ABSOLUTE GRANULOCYTE CT 6.4 /CUMM (1.4-6.5); ABSOLUTE LYMPH COUNT 0.6 /CUMM (1.2-3.4); ABSOLUTE MONOCYTE COUNT 0.7 /CUMM (0.10-0.60); BASOPHIL % 0.1 % (0.0-2.0); EOSINOPHIL % 4.3 % (0-5); GRANULOCYTE % 79.9 % (42.2-75.2); HEMATOCRIT 36.9 % (42-52); MEAN CORPUSCULAR HGB 27.8 PG (27.0-31.0); MEAN CORPUSCULAR HGB CONC 33.2 G/DL (33.0-37.0); MEAN CORPUSCULAR VOLUME 83.8 FL (80.0-94.0); MEAN PLATELET VOLUME 8.2 FL (7.4-10.4); PLATELET COUNT 214 /CUMM (130-400); RBC DISTRIBUTION WIDTH 16.4 % (11.5-14.5); RED BLOOD CELL CT 4.41 /CUMM (4.70-6.10)
[2017-04-02 16:00] VITALS: BP 102/66
--- NOTE | 2017-04-02 20:12 | Event Note ---
Event Note Event Note: Notified by nursing staff that patient was influenza +. Patient evaluated and noted to have onset of symptoms yesterday, including shortness of breath, fever and chills. Patient will now be placed in isolation (room to be moved) and he will be started on tamiflu 75 mg PO BID.
[2017-04-03 03:46] VITALS: BP 120/76
--- NOTE | 2017-04-03 07:10 | PN- Housestaff ---
Subjective Follow-up For: CHF exacerbation, Influenza Complaints: leg pain, productive cough, dyspnea Tele-Events Since Last Visit: A mynor, hr 69-81 Subjective: I followed up and examined the patient today. He is resting in his recliner, feels that his condition is not that great, has had chills overnight, fatigue, muscle aches, has been coughing with sputum, telemetry recordings as noted above , his blood pressure was low yesterday morning so her dose of Lasix was held, which has returned back to normal this morning to 144/80, otherwise no overnight issues. Review of Systems Constitutional: Reports: see HPI. Objective Last 24 Hrs of Vital Signs/I&O Vital Signs Date Time Temp Pulse Resp B/P B/P Pulse O2 O2 Flow FiO2 Mean Ox Delivery Rate 04/03 0824 91 Nasal 1.5L Cannula 04/03 0747 101.3 04/03 0518 93 Nasal 1.5L Cannula 04/03 0346 98.5 87 18 120/76 94 Nasal 1.5L Cannula 04/03 0000 Nasal 1.5L Cannula 04/02 2102 92 108/70 04/02 1600 Nasal 1.5L Cannula 04/02 1600 99.3 111 24 102/66 93 Room Air 04/02 1555 92 Room Air 04/02 1126 95 Nasal 1.5L Cannula 04/02 1109 100 104/50 04/02 1109 100 104/50 Intake & Output 04/03 1600 05 0800 0505 0000 Intake Total 400 960 Output Total 725 1700 Balance -325 -740 Intake, Oral 400 960 Number 1 Bowel Movements Output, Urine 725 1700 Patient 144.469 kg Weight Weight Standing Scale Measurement Method Physical Exam General Appearance: Alert, Oriented X3, Cooperative, Mild Distress Other Physical Findings: Head: Normocephalic, atraumatic Eyes: Pupils normal in size, regular, reacting to light and accommodation, EOM normal Ears: B/l normal on inspection Nose: Normal on inspection Throat/mouth: Moist mucosa Neck: Supple, full range of motion, no thyromegaly Heart: Regular rate, irregular rhythm Lung: breath sound diminished b/l but b/l wheezes heard, pt in mild-mod resp distress Abd: Soft, non-tender, no distention appreciated Back: Normal range of motion Extremities: Bilateral lower limb edema is just the same if not better than yesterday and still has weeping wounds that have been well dressed Neurologic: Alert, oriented x3, grossly intact Skin: Warm and dry, b/l legs have blisters and ulcers, well dressed Psychiatric: Calm, cooperative, coherant Current Medications: Current Medications Sig/Ann-Marie Start time Last Medication Dose Route Stop Time Status Admin Acetaminophen 650 MG Q4P PRN 04/03 1115 AC PO Acetaminophen 650 MG Q6P PRN 03/26 0730 DC 04/03 PO 0747 Acetylcysteine 2 ML BID 04/03 1044 AC INH 04/05 2201 Amiodarone HCl 200 MG DAILY 03/24 1459 AC 04/03 PO 1210 Aspirin Buffered 81 MG DAILY 03/24 1459 AC 04/03 PO 1129 Atorvastatin Calcium 40 MG 1700 03/24 1700 AC 04/02 PO 1652 Budesonide/ 2 PUF BID 03/24 2200 AC 04/03 Formoterol Fumarate INH 1130 Carvedilol 25 MG BID 03/24 1501 AC 04/02 PO 2102 Cholecalciferol 1,000 IU DAILY 03/25 1000 AC 04/03 PO 1129 Cyanocobalamin 1,000 MCG DAILY 03/25 1000 AC 04/03 PO 1129 Docusate Sodium 100 MG BID PRN 03/24 1530 AC 03/30 PO 1020 Fenofibrate 145 MG DAILY 03/25 1000 AC 04/03 PO 1129 Furosemide 60 MG 7:30 AM, & 4:30 PM 04/02 1630 AC 04/02 PO 1652 Gabapentin 600 MG Q8 03/24 1507 AC 04/03 PO 1340 Guaifenesin 600 MG Q12 03/24 1525 AC 04/03 PO 1211 Hydromorphone HCl 2 MG Q6P PRN 04/01 0815 AC 04/03 PO 0916 Insulin Aspart 0 TIDAC/HS 03/24 1700 AC 04/03 SC 1340 Insulin Detemir 30 UNITS BID 03/24 2200 AC 04/03 SC 1211 Ipratropium [place] 2.5 ML EVERY 4 HRS/AWAKE 03/25 0800 AC 04/03 INH 1144 Lisinopril 5 MG DAILY 03/24 1508 AC 04/01 PO 1144 Magnesium Chloride 64 MG BID 03/25 1000 AC 04/03 PO 1129 Naloxone HCl 0.4 MG Q 5 MINUTES X 3 DO.. 04/25 1530 AC IV Nicotine 21 MG DAILY 03/24 1508 AC 04/03 TOP 1129 Oseltamivir Phosphate 75 MG BID 04/02 2200 AC 04/03 PO 04/06 2159 1130 Polyethylene Glycol 17 GM AT BEDTIME PRN 03/24 1515 AC 04/01 PO 2102 Potassium Chloride 10 MEQ DAILY 03/25 1000 AC 04/03 PO 1129 Prednisone 10 MG DAILY 04/02 1000 DC 04/03 PO 04/03 1001 1129 Warfarin Sodium 7.5 MG COUMADIN 1700 ONE 04/03 1700 AC PO 04/03 1701 Warfarin Sodium 5 MG COUMADIN 1700 ONE 04/02 1700 DC 04/02 PO 04/02 1701 1652 Last 24 Hrs of Lab/[place] Results Last 24 Hrs of Labs/Mics: Laboratory Tests 04/03/17 1008: Anion Gap 10, Estimated GFR 52 L, BUN/Creatinine Ratio 32.1 H, Phosphorus 3.4, Magnesium 1.8, PT 18.7 H, INR 1.79 H 04/02/17 1830: Virus Culture Pending Microbiology 04/03 1046 LOWER RESP: Respiratory Culture - ORD 04/03 1046 LOWER RESP: Gram Stain - ORD 04/02 1830 NASOPHARYN: Influenza Virus A & B Rapid Smear - COMP INFLUENZA TYPE B Assessment/Plan Assessment: 61 y/o M with PMHx of COPD and TOMASZ on home oxygen (1.5 L at daytime and 2 L at night), HFpEF and atrial fibrillation on warfarin who is admitted for acute on chronic diastolic CHF. #Acute on chronic HFpEF: Persistent leg edema despite significant diuresis since admission. Wound in the legs are just the same today and still doesn't appear infected. * Continue telemetry monitoring. * on Lasix to 60 mg PO BID. * Monitor I/Os and daily BMPs. * Held Coreg for the morning due to low BP. #BP was 94/50 this AM at 9:15 am so AM dose of Lasix was held. [employer] aware. #Atrial fibrillation: Heart rate well-controlled. INR 1.79 (subtherapeutic) today. * Continue to monitor INR daily and dose warfarin accordingly to keep INR 2-2.5. * Administer 7.5 mg of warfarin this evening. #COPD: Sputum culture with mixed jocelyne. * Chest CT scan, did NOT show acute pathology, but did mention wanting loss and atelectatic changes, micronodules, borderline sized mediastinal and left hilar lymph nodes, multiple thyroid nodules. * Continue Mucinex 600 mg PO BID. Mucomist nebulization added BID today to thin out the resp secretions per pulm recommendation. * Steriod 10mg PO 2/2 day today per pulm service, Will probably continue tomorrow as he still has wheezes. * TRC/nebs. * Provide supplemental oxygen to keep SpO2 > 92%. * Continue Symbicort 2 puffs BID. #Insulin-dependent T2DM: * Monitor blood sugars closely while on steroids. * Continue Levemir 30 units SQ BID. * Accu-checks and high-dose sliding scale Novolog TIDAC. * Blood sugar this morning was 95, will probably get better as steroids has been stopped since yesterday Diet: Consistent Carbohydrate 3 with 2 g Na Restriction DVT PPx: Warfarin and ALPS CODE: FULL CODE Problem List: 1. CHF exacerbation 2. Influenza Pain Ratin Pain Location: legs Pain Goal: Pain 4 or less Pain Plan: home meds plus prn Tomorrow's Labs & Rationales: INR, BEP, Mg to dose coumadin, follow lytes
--- NOTE | 2017-04-03 07:16 | PN- Student ---
Subjective Subjective: Today Mr. Johnson seems worse than yesterday. He is still complaining of chills and feeling feverish. He has a cough that does not seem to be producing anything. He states that he is having more difficulty breathing today and that his pain is still very bad. He reports having a good bowel movement yesterday that was normal size and consistency and he says that he has been urinating very well with no problems. He denies any chest pain or abdominal pain. Objective Objective: Vital Signs Date Time Temp Pulse Resp B/P B/P Pulse O2 O2 Flow FiO2 Mean Ox Delivery Rate 04/03 0747 101.3 04/03 0518 93 Nasal 1.5L Cannula 04/03 0346 98.5 87 18 120/76 94 Nasal 1.5L Cannula 04/03 0000 Nasal 1.5L Cannula 04/02 2102 92 108/70 04/02 1600 Nasal 1.5L Cannula 04/02 1600 99.3 111 24 102/66 93 Room Air 04/02 1555 92 Room Air 04/02 1126 95 Nasal 1.5L Cannula 04/02 1109 100 104/50 04/02 1109 100 104/50 Intake & Output 04/03 1600 04/03 0800 04/03 0000 Intake Total 400 960 Output Total 725 1700 Balance -325 -740 Intake, Oral 400 960 Number 1 Bowel Movements Output, Urine 725 1700 Patient 319 lb Weight Weight Standing Scale Measurement Method Telemetry: atrial fibrillation 69-81 no events Labs: Positive for influenza type B PE: General appearance- alert and oriented x3, seated in chair, he looks sickly and in some distress. HEENT- atraumatic, PEERLA, mucus membranes moist and pink Neck- supple, no JVD, no thyromegaly or lymphadenopathy, trachea is midline CV- S1 and S2 heard, irregularly irregular, no murmurs rubs or gallops noted on auscultation Chest- diffuse expiratory wheezes are heard on auscultation. good air movement but breathing is labored Abd- soft, non-tender to palpation Skin- warm and well perfused, multiple blisters on anterior legs bilaterally with bandaged abrasions on both lower extremities, wounds were not visualized today (clean bandages present). Also has scratch on right arm and left elbow abrasion. Ext- 2+ pitting edema bilaterally on Lower extremity. Edema has slight to no improvement from yesterday. Assessment/Plan Assessment: Mr. Johnson is a 61 yo M with a PMH of A-fib, CHF, CAD, HTN, Hyperlipidemia, an PA (stent in 2003), COPD (on 2L NC at home), Bronchitis, and diabetes mellitus. He was admitted to telemetry, from Dr. Cosby's office visit, on 03/24 with worsening dyspnea, lower extremity pain, and weeping sores on both lower extremities. He fell at home 3 days ago while trying to go to the bathroom and was unable to get up for several hours. He sustained numerous abrasions on both lower extemities while trying to get off of the floor which have been weeping fluid. He described his initial leg pain as 17/15 on a pain scale and was 10/15 on admission. During the admission he also reported a cough that has been productive of green phlegm plugs. He denied any chest pain but did state that he had chills the night that he fell. Yesterday Mr. Johnson started feeling ill with chills and increased difficulty breathing. He had a flu test come back positive for influenza B. Today he is having fevers of 101.3 with a cough and complains of more difficulty breathing. He is currently in isolation, seated in his chair on 2L O2 Nasal cannula. He has expiratory wheezing on auscultation and his edema has nearly no improvement from yesterday. He is still diuresing well and his current weight is 319 measured by standing scale. Current Medications Sig/Ann-Marie Start time Last Medication Dose Route Stop Time Status Admin Acetaminophen 650 MG Q4P PRN 04/03 1115 AC PO Acetaminophen 650 MG Q6P PRN 03/26 0730 DC 04/03 PO 0747 Acetylcysteine 2 ML BID 04/03 1044 AC INH 04/05 2201 Amiodarone HCl 200 MG DAILY 03/24 1459 AC 04/03 PO 1210 Aspirin Buffered 81 MG DAILY 03/24 1459 AC 04/03 PO 1129 Atorvastatin Calcium 40 MG 1700 03/24 1700 AC 04/02 PO 1652 Budesonide/ 2 PUF BID 03/24 2200 AC 04/03 Formoterol Fumarate INH 1130 Carvedilol 25 MG BID 03/24 1501 AC 04/02 PO 210 Cholecalciferol 1,000 IU DAILY 03/25 1000 AC 04/03 PO 1129 Cyanocobalamin 1,000 MCG DAILY 03/25 1000 AC 04/03 PO 1129 Docusate Sodium 100 MG BID PRN 03/24 1530 AC 03/30 PO 1020 Fenofibrate 145 MG DAILY 03/25 1000 AC 04/03 PO 1129 Furosemide 60 MG 7:30 AM, & 4:30 PM 04/02 1630 AC 04/02 PO 1652 Gabapentin 600 MG Q8 03/24 1507 AC 04/03 PO 0602 Guaifenesin 600 MG Q12 03/24 1525 AC 04/03 PO 1211 Hydromorphone HCl 2 MG Q6P PRN 04/01 0815 AC 04/03 PO 0916 Insulin Aspart 0 TIDAC/HS 03/24 1700 AC 04/03 SC 0915 Insulin Detemir 30 UNITS BID 03/24 2200 AC 04/03 SC 1211 Ipratropium [place] 2.5 ML EVERY 4 HRS/AWAKE 03/25 0800 AC 04/03 INH 1144 Lisinopril 5 MG DAILY 03/24 1508 AC 04/01 PO 1144 Magnesium Chloride 64 MG BID 03/25 1000 AC 04/03 PO 1129 Naloxone HCl 0.4 MG Q 5 MINUTES X 3 DO.. 03/24 1530 AC IV Nicotine 21 MG DAILY 03/24 1508 AC 04/03 TOP 1129 Oseltamivir Phosphate 75 MG BID 04/02 2200 AC 04/03 PO 04/06 2159 1130 Patient Medication 1 ED .STK-MED ONE 04/02 1354 DC Teaching ED 04/02 1355 Polyethylene Glycol 17 GM AT BEDTIME PRN 03/24 1515 AC 04/01 PO 2102 Potassium Chloride 10 MEQ DAILY 03/25 1000 AC 04/03 PO 1129 Prednisone 10 MG DAILY 04/02 1000 DC 04/03 PO 04/03 1001 1129 Warfarin Sodium 5 MG COUMADIN 1700 ONE 04/02 1700 DC 04/02 PO 04/02 1701 1652 Plan: Mr. Johnson will remain admitted following positive influenza test. We will continue to follow up with pulmonology and cardiology for their treatment recommendations. Plan to continue treating in isolation on oxygen. Will manage his influenza with Oseltamavir 75 mg PO BID for 5 days as well as mucosol 20% 2 mL INH BID for 72 hrs max, as per recommendations. Cardiology recommendations: * Oseltamivir for 5 day duration * Net negative fluid balance since admission with interval improvement in weight over the past 24 hours * Hypotension this morning: BP 90/50. This is likely secondary to underlying influenza. Will hold a.m. dose of furosemide 60 mg and continue with evening dose if blood pressure remains stable * COntinue: lisnopril 5mg, carvedilol 25mg BID, amiodarone 200mg daily * Coumadin dosing for INR 2-3 * Follow-up magnesium and phosphorus * Pulmonology on board at this time Pulmonary recommendations: * Yellow tenacious sputum,ensure sputum culture * add mucomyst nebulized BID for a maximum of 72 hours - patient may decline Problem List: 1. Influenza B positive- oseltamavir 75 mg PO BID for 5 days as well as acetylcysteine 20% 2mL INH BID for no more than 72 hours. Treat in isolation 2. Wounds- continue with wound care protocol. 3. LE edema with chronic venous stasis- increase IV lasix to 60 mg BID and monitor I&Os (Held AM dose due to hypotension, if BP stable resume afternoon dose) 4. Elevated troponins- continue to monitor labs, latest show downward trend 5. Supratherapeutic INR- dose coumadin 5 mg PO daily to target of 2-3 (today INR was 2.28) 6. Atrial fibrillation- continue aspirin and coumadin and dose for target INR of 2-3 7. COPD exacerbation- continue home medications. Continue oxygen therapy at 1.5L NC during day and 2.0L at night. 8. Obesity- Educate patient on healthy diet strategies. 9. Diabetes- Diabetic Diet. continue to monitor glucose and continue home medication Diet: heart healthy diet DVT prophylaxis: Warfarin Code Status: full code
[2017-04-03 08:00] VITALS: BP 144/80
[2017-04-03 09:15] VITALS: BP 94/50
--- NOTE | 2017-04-03 09:58 | PN- Pulmonary ---
See Addendum Subjective HPI/Critical Care Issues: Patient seen and examined. He has been febrile overnight to 101.3 with tachycardia of 1:15 and normotensive. His oxygen saturation this morning was 91 % on 1-1/2 L nasal cannula. He is positive for influenza type B as of last night and was started on Tamiflu therapy. Otherwise no events everything else was reviewed including the chart and medications. Objective Current Medications: Current Medications Sig/Ann-Marie Start time Last Medication Dose Route Stop Time Status Admin Acetaminophen 650 MG Q6P PRN 03/26 0730 AC 04/03 PO 0747 Amiodarone HCl 200 MG DAILY 03/24 1459 AC 04/02 PO 1109 Aspirin Buffered 81 MG DAILY 03/24 1459 AC 04/02 PO 1104 Atorvastatin Calcium 40 MG 1700 03/24 1700 AC 04/02 PO 1652 Budesonide/ 2 PUF BID 03/24 2200 AC 04/02 Formoterol Fumarate INH 2058 Carvedilol 25 MG BID 03/24 1501 AC 04/02 PO 2102 Cholecalciferol 1,000 IU DAILY 03/25 1000 AC 04/02 PO 1105 Cyanocobalamin 1,000 MCG DAILY 03/25 1000 AC 04/02 PO 1105 Docusate Sodium 100 MG BID PRN 03/24 1530 AC 03/30 PO 1020 Fenofibrate 145 MG DAILY 03/25 1000 AC 04/02 PO 1105 Furosemide 60 MG 7:30 AM, & 4:30 PM 04/02 1630 AC 04/02 PO 1652 Furosemide 60 MG 7:30 AM, & 4:30 PM 03/31 1630 DC 04/02 IV 0838 Gabapentin 600 MG Q8 03/24 1507 AC 04/03 PO 0602 Guaifenesin 600 MG Q12 03/24 1525 AC 04/02 PO 2100 Hydromorphone HCl 2 MG Q6P PRN 04/01 0815 AC 04/03 PO 0916 Insulin Aspart 0 TIDAC/HS 03/24 1700 AC 04/03 SC 0915 Insulin Detemir 30 UNITS BID 03/24 2200 AC 04/02 SC 2059 Ipratropium [place] 2.5 ML EVERY 4 HRS/AWAKE 03/25 0800 AC 04/03 INH 0823 Lisinopril 5 MG DAILY 03/24 1508 AC 04/01 PO 1144 Magnesium Chloride 64 MG BID 03/25 1000 AC 04/02 PO 2100 Naloxone HCl 0.4 MG Q 5 MINUTES X 3 DO.. 03/24 1530 AC IV Nicotine 21 MG DAILY 03/24 1508 04/02 TOP 1112 Oseltamivir Phosphate 75 MG BID 04/02 2200 AC 04/02 PO 04/06 2159 2211 Patient Medication 1 ED .STK-MED ONE 04/02 1354 DC Teaching ED 04/02 1355 Polyethylene Glycol 17 GM AT BEDTIME PRN 03/24 1515 04/01 PO 2102 Potassium Chloride 10 MEQ DAILY 03/25 1000 AC 04/02 PO 1104 Prednisone 10 MG DAILY 04/02 1000 AC 04/02 PO 04/03 1001 1227 Warfarin Sodium 5 MG COUMADIN 1700 ONE 04/02 1700 DC 04/02 PO 04/02 1701 1652 Vital Signs & I&O Last 24 Hrs of Vitals and I&O: Vital Signs Date Time Temp Pulse Resp B/P B/P Pulse O2 O2 Flow FiO2 Mean Ox Delivery Rate 04/03 0915 110 94/50 04/03 0824 91 Nasal 1.5L Cannula 04/03 0800 Nasal Cannula 04/03 0800 101.3 115 20 144/80 94 Nasal 1.5L Cannula 04/03 0747 101.3 04/03 0518 93 Nasal 1.5L Cannula 04/03 0346 98.5 87 18 120/76 94 Nasal 1.5L Cannula 04/03 0000 Nasal 1.5L Cannula 04/02 2102 92 108/70 04/02 1600 Nasal 1.5L Cannula 04/02 1600 99.3 111 24 102/66 93 Room Air 04/02 1555 92 Room Air 04/02 1126 95 Nasal 1.5L Cannula 04/02 1109 100 104/50 04/02 1109 100 104/50 Intake & Output 04/03 1600 04/03 0800 05 0000 Intake Total 400 960 Output Total 725 1700 Balance -325 -740 Intake, Oral 400 960 Number 1 Bowel Movements Output, Urine 725 1700 Patient 319 lb Weight Weight Standing Scale Measurement Method Exam Other Physical Findings: Generally - Awake, alert Head and neck - normocephalic, atraumatic, EOMI grossly intact Cardiovascular - S1, S2, no murmurs, rubs or gallops Lungs -bilateral scattered rhonchi Abdomen - Bowel sounds positive, soft, non-tender Extremities -chronic venous changes with blisters and 2+ edema Results Last 24 Hrs of Lab Results: Laboratory Tests 04/02/17 1830: Virus Culture Pending 04/02/17 1235: CBC w Diff NO MAN DIFF REQ, RBC 4.41 L, MCV 83.8, MCH 27.8, RDW 16.4 H, MPV 8.2, Gran % 79.9 H, Lymphocytes % 7.5 L, Monocytes % 8.2, Eosinophils % 4.3, Basophils % 0.1, Absolute Granulocytes 6.4, Absolute Lymphocytes 0.6 L, Absolute Monocytes 0.7 H, Absolute Eosinophils 0.3, Absolute Basophils 0, PUBS MCHC 33.2 Impression/Plan Impression/Plan Impression/Plan: Impression 61-year-old man * Congestive heart failure with preserved ejection fraction and acute on chronic presentation * Troponin anemia likely secondary to demand ischemia which is improved * Exacerbation of COPD that has improved * Type B influenza * Chronic venous stasis * Atrial fibrillation Plan - Continue to follow telemetry and cardiology input - I agree with continued steroid taper - Agree with Symbicort and TRC/nebs - Maintain oxygen saturation above 92% - Leg elevation - Tamiflu therapy has been ordered - Monitor ins and outs with diuresis - Monitor INR levels while on Coumadin DVT prophylaxis at all times
[2017-04-03 10:27] LABS: PT 18.7 SEC (9.4-12.5)
--- NOTE | 2017-04-03 11:35 | PN- Cardiology ---
Subjective Subjective: Interval history: This morning the patient states that he still feels slightly better than yesterday. Patient was diagnosed with positive influenza Review of Systems Constitutional: Reports: see HPI. EENTM: Reports: see HPI. Cardiovascular: Reports: see HPI. Respiratory: Reports: see HPI. Gastrointestinal: Reports: see HPI. Musculoskeletal: Reports: see HPI. Objective Vital Signs and I&Os Vital Signs Date Time Temp Pulse Resp B/P B/P Pulse O2 O2 Flow FiO2 Mean Ox Delivery Rate 04/03 1138 98.8 90 90/50 / 0930 100.0 05/ 0915 100.0 05/ 0915 100.0 110 94/50 / 0824 91 Nasal 1.5L Cannula 04/03 0800 Nasal Cannula 04/03 0800 101.3 115 20 144/80 94 Nasal 1.5L Cannula 04/03 0747 101.3 04/03 0518 93 Nasal 1.5L Cannula 04/03 0346 98.5 87 18 120/76 94 Nasal 1.5L Cannula 04/03 0000 Nasal 1.5L Cannula 04/02 2102 92 108/70 04/02 1600 Nasal 1.5L Cannula 04/02 1600 99.3 111 24 102/66 93 Room Air 04/02 1555 92 Room Air Intake & Output 04/03 1600 04/03 0800 05/05 0000 / 1600 04/02 0800 04/02 0000 Intake Total 400 960 660 200 615 Output Total 725 1700 1500 850 700 Balance -325 -740 -840 -650 -85 Intake, IV 15 Intake, Oral 400 960 660 200 600 Number 1 Bowel Movements Output, Urine 725 1700 1500 850 700 Patient 319 lb 321 lb Weight Weight Standing Scale Standing Scale Measurement Method Physical Exam General Appearance: no apparent distress, alert, comfortable Head: normal appearance Ears, Nose, Throat: hearing grossly normal Respiratory: no respiratory distress, mild inspiratory stridor with interval improvement over the past 4 hours Cardiovascular: irregularly irregular Abdomen: normal bowel sounds, soft, non-tender Extremities: 2+ pitting edema bilateral lower extremities. Stable over the past 48 hours Current Medications: Current Medications Sig/Ann-Marie Start time Last Medication Dose Route Stop Time Status Admin Acetaminophen 650 MG Q4P PRN 04/03 1115 AC PO Acetaminophen 650 MG Q6P PRN 03/26 0730 DC 04/03 PO 0747 Acetylcysteine 2 ML BID 04/03 1044 AC INH 04/05 2201 Amiodarone HCl 200 MG DAILY 03/24 1459 AC 04/02 PO 1109 Aspirin Buffered 81 MG DAILY 03/24 1459 AC 04/03 PO 1129 Atorvastatin Calcium 40 MG 1700 03/24 1700 AC 04/02 PO 1652 Budesonide/ 2 PUF BID 03/24 2200 AC 04/03 Formoterol Fumarate INH 1130 Carvedilol 25 MG BID 03/24 1501 AC 04/02 PO 2102 Cholecalciferol 1,000 IU DAILY 03/25 1000 AC 04/03 PO 1129 Cyanocobalamin 1,000 MCG DAILY 03/25 1000 AC 04/03 PO 1129 Docusate Sodium 100 MG BID PRN 03/24 1530 AC 03/30 PO 1020 Fenofibrate 145 MG DAILY 03/25 1000 AC 04/03 PO 1129 Furosemide 60 MG 7:30 AM, & 4:30 PM 04/02 1630 AC 04/02 PO 1652 Gabapentin 600 MG Q8 03/24 1507 AC 04/03 PO 0602 Guaifenesin 600 MG Q12 03/24 1525 AC 04/02 PO 2100 Hydromorphone HCl 2 MG Q6P PRN 04/01 0815 AC 04/03 PO 0916 Insulin Aspart 0 TIDAC/HS 03/24 1700 AC 04/03 SC 0915 Insulin Detemir 30 UNITS BID 03/24 2200 AC 04/02 SC 2059 Ipratropium [place] 2.5 ML EVERY 4 HRS/AWAKE 03/25 0800 AC 04/03 INH 1144 Lisinopril 5 MG DAILY 03/24 1508 AC 04/01 PO 1144 Magnesium Chloride 64 MG BID 03/25 1000 AC 04/03 PO 1129 Naloxone HCl 0.4 MG Q 5 MINUTES X 3 DO.. 03/24 1530 AC IV Nicotine 21 MG DAILY 03/24 1508 AC 04/03 TOP 1129 Oseltamivir Phosphate 75 MG BID 04/02 2200 AC 04/03 PO 04/06 2159 1130 Patient Medication 1 ED .STK-MED ONE 04/02 1354 DC Teaching ED 04/02 1355 Polyethylene Glycol 17 GM AT BEDTIME PRN 03/24 1515 AC 04/01 PO 2102 Potassium Chloride 10 MEQ DAILY 03/25 1000 AC 04/03 PO 1129 Prednisone 10 MG DAILY 04/02 1000 DC 04/03 PO 04/03 1001 1129 Warfarin Sodium 5 MG COUMADIN 1700 ONE 04/02 1700 DC 04/02 PO 04/02 1701 1652 Results Last 48 Hrs of Labs/Mics: Laboratory Tests 04/03/17 1008: Anion Gap 10, Estimated GFR 52 L, BUN/Creatinine Ratio 32.1 H, PT 18.7 H, INR 1.79 H 04/02/17 1830: Virus Culture Pending 04/02/17 1235: CBC w Diff NO MAN DIFF REQ, RBC 4.41 L, MCV 83.8, MCH 27.8, RDW 16.4 H, MPV 8.2, Gran % 79.9 H, Lymphocytes % 7.5 L, Monocytes % 8.2, Eosinophils % 4.3, Basophils % 0.1, Absolute Granulocytes 6.4, Absolute Lymphocytes 0.6 L, Absolute Monocytes 0.7 H, Absolute Eosinophils 0.3, Absolute Basophils 0, PUBS MCHC 33.2 04/02/17 0656: Anion Gap 9, Estimated GFR 56 L, BUN/Creatinine Ratio 39.2 H, PT 21.4 H, INR 2.05 H Microbiology 04/02 1830 NASOPHARYN: Influenza Virus A & B Rapid Smear - COMP INFLUENZA TYPE B Assessment/Plan Assessment/Plan 61 y/o gentleman with a PMH of TOMASZ baseline home oxygen 1.5 L and nocturnal 2L, emphysema, pulmonary HTN, obesity, previous tobacco use, CAD s/p stent placement 2003, Atrial fib (on amiodarone and coumadin), 3 prior unscuccessful cardioversion attempts, HLD, type II DM complicated w/ neuropathy, LE stasis dermatitis who is admitted after complaints of progressive lower extremity swelling, intermittent productive cough with yellow sputum and fall. Problem list: 1. LE edema with chronic venous stasis 2. Elevated troponin -troponin was 0.4 on admission, subsequently decreasing. Possible demand ischemia, possibly related to fall with elevated CPK. The patient will eventually require a follow-up pharmacologic nuclear stress test. This can be performed as an outpatient. 3. Supratherapeutic INR 4. Atrial fibrillation 5. COPD exacerbation 6. TOMASZ 7. Obesity 8. Diabetes Recommendations: * Oseltamivir for 5 day duration * Net negative fluid balance since admission with interval improvement in weight over the past 24 hours * Hypotension this morning: BP 90/50. This is likely secondary to underlying influenza. Will hold a.m. dose of furosemide 60 mg and continue with evening dose if blood pressure remains stable * Hold todays dose lisinopril 5mg, carvedilol 25mg BID * Continue amiodarone 200mg daily * Coumadin dosing for INR 2-3 * Follow-up magnesium and phosphorus * Pulmonology on board at this time Continue telemetry? Yes
[2017-04-03 11:38] VITALS: BP 90/50
[2017-04-03 15:58] VITALS: BP 96/58
[2017-04-04 01:03] VITALS: BP 120/78
[2017-04-04 06:35] VITALS: BP 124/80
[2017-04-04 08:34] LABS: PT 16.4 SEC (9.4-12.5)
[2017-04-04 08:45] VITALS: BP 102/74
--- NOTE | 2017-04-04 08:48 | PN- Housestaff ---
Subjective Follow-up For: CHF exacerbation, Influenza Tele-Events Since Last Visit: Atrial fibrillation PVCs, triplet HR 68-72 Subjective: No acute events overnight. Patient seen and examined this morning. He reports feeling achy, tired and weak. He denies chest pain or lightheadedness. Respiratory status is stable. He remains on 1.5 L NC. He continues to have pain in his legs which he rates at 8-9 this morning. Review of Systems Constitutional: Reports: see HPI. Objective Last 24 Hrs of Vital Signs/I&O Vital Signs Date Time Temp Pulse Resp B/P B/P Pulse O2 O2 Flow FiO2 Mean Ox Delivery Rate 04/04 1600 Nasal 1.5L Cannula 04/04 1548 98.0 80 20 108/62 93 Room Air 04/04 0942 90 109/60 / 0941 90 109/60 / 0941 90 109/60 / 0912 97 Nasal 1.5L Cannula 04/04 0845 97.7 70 20 102/74 96 Nasal 1.5L Cannula 04/04 0800 97 Nasal 1.5L Cannula / 0635 89 124/80 05/ 0554 95 Nasal 1.5L Cannula / 0103 98.7 84 16 120/78 94 Room Air / 0000 Nasal 1.5L Cannula 04/03 2141 72 100/64 Intake & Output / 1600 05/06 0800 05/06 0000 Intake Total 800 240 720 Output Total 1150 600 625 Balance -350 -360 95 Intake, Oral 800 240 720 Number 1 Bowel Movements Output, Urine 1150 600 625 Patient 142.882 kg Weight Weight Standing Scale Measurement Method Physical Exam General Appearance: Alert, Oriented X3, No Acute Distress HEENT: Atraumatic, Mucous Membr. moist/pink Cardiovascular: Regular Rate, Normal S1, Normal S2, No Murmurs, Gallops, Rubs Lungs: Few Rhonchi Scattered Throughout Bilateral Lung Uribe Abdomen: Soft, No Tenderness, Positive Bowel Sounds Extremities: No Clubbing, No Cyanosis, Bilateral Lower Extremities with 3+ Pitting Edema and Dressings in Place Current Medications: Current Medications Sig/Ann-Marie Start time Last Medication Dose Route Stop Time Status Admin Acetaminophen 650 MG Q4P PRN 04/03 1115 AC PO Acetylcysteine 2 ML BID 04/03 1044 AC 04/03 INH 04/05 2201 1646 Amiodarone HCl 200 MG DAILY 03/24 1459 AC 04/04 PO 0941 Aspirin Buffered 81 MG DAILY 03/24 1459 AC / PO 0941 Atorvastatin Calcium 40 MG 1700 03/24 1700 AC 05/ PO 1737 Budesonide/ 2 PUF BID 03/24 2200 AC 04/04 Formoterol Fumarate INH 0942 Carvedilol 25 MG BID 03/24 1501 AC 05/ PO 0941 Cholecalciferol 1,000 IU DAILY 03/25 1000 AC 04/04 PO 0942 Cyanocobalamin 1,000 MCG DAILY 03/25 1000 AC / PO 0942 Docusate Sodium 100 MG BID PRN 03/24 1530 AC 03/30 PO 1020 Fenofibrate 145 MG DAILY 03/25 1000 AC 04/04 PO 0943 Furosemide 60 MG 7:30 AM, & 4:30 PM 04/02 1630 AC / PO 1737 Gabapentin 600 MG Q8 03/24 1507 AC 05 PO 1318 Guaifenesin 600 MG Q12 03/24 1525 04/04 PO 0941 Hydromorphone HCl 2 MG Q6P PRN 04/01 0815 04/04 PO 1607 Insulin Aspart 0 TIDAC/HS 03/24 1700 04/04 SC 1815 Insulin Detemir 30 UNITS BID 03/24 2200 04/04 SC 0954 Ipratropium [place] 2.5 ML EVERY 4 HRS/AWAKE 03/25 0800 AC 04/04 INH 1720 Lisinopril 5 MG DAILY 03/24 1508 AC 04/04 PO 0942 Magnesium Chloride 64 MG BID 03/25 1000 AC 04/04 PO 0942 Naloxone HCl 0.4 MG Q 5 MINUTES X 3 DO.. 03/24 1530 AC IV Nicotine 21 MG DAILY 03/24 1508 AC 04/04 TOP 0940 Nystatin 1 NIKITA BID 04/04 1005 04/04 TOP 1146 Oseltamivir Phosphate 75 MG BID 04/02 2200 AC / PO 08 2159 0942 Polyethylene Glycol 17 GM AT BEDTIME PRN 03/24 1515 /03 PO 2102 Potassium Chloride 10 MEQ DAILY 03/25 1000 AC / PO 0941 Warfarin Sodium 10 MG COUMADIN 1700 ONE 04/04 1700 DC 05 PO 04/04 1701 1737 Last 24 Hrs of Lab/[place] Results Last 24 Hrs of Labs/Mics: Laboratory Tests 04/04/17 0745: Anion Gap 9, Estimated GFR > 60, BUN/Creatinine Ratio 33.0 H, PT 16.4 H, INR 1.57 H, CBC w Diff NO MAN DIFF REQ, RBC 4.42 L, MCV 84.1, MCH 27.5, RDW 16.5 H, MPV 8.1, Gran % 69.6, Lymphocytes % 15.0 L, Monocytes % 9.5 H, Eosinophils % 5.5 H, Basophils % 0.4, Absolute Granulocytes 3.7, Absolute Lymphocytes 0.8 L, Absolute Monocytes 0.5, Absolute Eosinophils 0.3, Absolute Basophils 0, PUBS MCHC 32.7 L Sputum Cx (04/04/17): Mixed jocelyne after 1 day Assessment/Plan Assessment: 61 y/o M with PMHx of COPD and TOMASZ on home oxygen (1.5 L at daytime and 2 L at night), HFpEF and atrial fibrillation on warfarin who is admitted for acute on chronic diastolic CHF. #Acute on chronic HFpEF: Persistent leg edema despite significant diuresis since admission. Wound in the legs are just the same today and still doesn't appear infected. * Continue telemetry monitoring. * Continue Lasix 60 mg PO BID. Per cardiology avoid holding Lasix if possible. * Monitor I/Os and daily BMPs. * Continue carvedilol 25 mg PO BID * Encourage leg elevation. * Cleanse leg wounds aggressively and continue Xeroform dressing. #Atrial fibrillation: Heart rate well-controlled. INR 1.57(subtherapeutic) today. * Continue to monitor INR daily and dose warfarin accordingly to keep INR 2-2.5. * Administer 10 mg of warfarin this evening. #COPD: Sputum culture with mixed jocelyne. * Chest CT scan, did NOT show acute pathology, but did mention wanting loss and atelectatic changes, micronodules, borderline sized mediastinal and left hilar lymph nodes, multiple thyroid nodules. * Continue Mucinex 600 mg PO BID. Mucomist nebulization added BID today to thin out the resp secretions per pulm recommendation. * TRC/nebs. * Provide supplemental oxygen to keep SpO2 > 92%. * Continue Symbicort 2 puffs BID. #Insulin-dependent T2DM: Blood sugars well-controlled today. * Monitor blood sugars closely while on steroids. * Continue Levemir 30 units SQ BID. * Accu-checks and high-dose sliding scale Novolog TIDAC. Diet: Consistent Carbohydrate 3 with 2 g Na Restriction DVT PPx: Warfarin and ALPS CODE: FULL CODE Problem List: 1. CHF exacerbation 2. Stasis dermatitis of both legs 3. Influenza 4. Venous stasis ulcers of both lower extremities Pain Ratin Pain Location: Legs Pain Goal: Pain 7 or less Pain Plan: Dilaudid 2 mg PO Q6H PRN for severe pain (scale 7-10) Tylenol 650 mg PO Q6H for mild pain Gabapentin 600 mg PO Q8H Tomorrow's Labs & Rationales: BMP and Mg to monitor lytes and kidney function in the setting of RL INR in the setting of warfarin therapy
[2017-04-04 08:49] LABS: ABSOLUTE BASOPHIL COUNT 0 /CUMM (0.0-0.2); ABSOLUTE EOSINOPHIL COUNT 0.3 /CUMM (0.0-0.7); ABSOLUTE GRANULOCYTE CT 3.7 /CUMM (1.4-6.5); ABSOLUTE LYMPH COUNT 0.8 /CUMM (1.2-3.4); ABSOLUTE MONOCYTE COUNT 0.5 /CUMM (0.10-0.60); BASOPHIL % 0.4 % (0.0-2.0); EOSINOPHIL % 5.5 % (0-5); GRANULOCYTE % 69.6 % (42.2-75.2); HEMATOCRIT 37.2 % (42-52); MEAN CORPUSCULAR HGB 27.5 PG (27.0-31.0); MEAN CORPUSCULAR HGB CONC 32.7 G/DL (33.0-37.0); MEAN CORPUSCULAR VOLUME 84.1 FL (80.0-94.0); MEAN PLATELET VOLUME 8.1 FL (7.4-10.4); PLATELET COUNT 185 /CUMM (130-400); RBC DISTRIBUTION WIDTH 16.5 % (11.5-14.5); RED BLOOD CELL CT 4.42 /CUMM (4.70-6.10); WHITE BLOOD CELL COUNT 5.3 /CUMM (4.8-10.8)
--- NOTE | 2017-04-04 10:13 | PN- Pulmonary ---
Subjective HPI/Critical Care Issues: Patient is comfortable on room air ambulating within the room. He continues to have significant lower extremity edema Objective Current Medications: Current Medications Sig/Ann-Marie Start time Last Medication Dose Route Stop Time Status Admin Acetaminophen 650 MG Q4P PRN 04/03 1115 AC PO Acetaminophen 650 MG Q6P PRN 03/26 0730 DC 04/03 PO 0747 Acetylcysteine 2 ML BID 04/03 1044 AC 04/03 INH 04/05 2201 1646 Amiodarone HCl 200 MG DAILY 03/24 1459 AC 04/04 PO 0941 Aspirin Buffered 81 MG DAILY 03/24 1459 AC 04/04 PO 0941 Atorvastatin Calcium 40 MG 1700 03/24 1700 AC 04/03 PO 1802 Budesonide/ 2 PUF BID 03/24 2200 AC 04/04 Formoterol Fumarate INH 0942 Carvedilol 25 MG BID 03/24 1501 AC 04/04 PO 0941 Cholecalciferol 1,000 IU DAILY 03/25 1000 AC 04/04 PO 0942 Cyanocobalamin 1,000 MCG DAILY 03/25 1000 AC 04/04 PO 0942 Docusate Sodium 100 MG BID PRN 03/24 1530 AC 03/30 PO 1020 Fenofibrate 145 MG DAILY 03/25 1000 AC 04/04 PO 0943 Furosemide 60 MG 7:30 AM, & 4:30 PM 04/02 1630 AC 04/04 PO 0632 Gabapentin 600 MG Q8 03/24 1507 AC 04/04 PO 0614 Guaifenesin 600 MG Q12 03/24 1525 AC 04/04 PO 0941 Hydromorphone HCl 2 MG Q6P PRN 04/01 0815 AC 04/04 PO 0953 Insulin Aspart 0 TIDAC/HS 03/24 1700 AC 04/04 SC 0809 Insulin Detemir 30 UNITS BID 03/24 2200 AC 04/04 SC 0954 Ipratropium [place] 2.5 ML EVERY 4 HRS/AWAKE 03/25 0800 AC 04/04 INH 0906 Lisinopril 5 MG DAILY 03/24 1508 AC 04/04 PO 0942 Magnesium Chloride 64 MG BID 03/25 1000 AC 04/04 PO 0942 Naloxone HCl 0.4 MG Q 5 MINUTES X 3 DO.. 03/24 1530 AC IV Nicotine 21 MG DAILY 03/24 1508 04/04 TOP 0940 Nystatin 1 NIKITA BID 04/04 1005 AC TOP Oseltamivir Phosphate 75 MG BID 04/02 2200 AC 04/04 PO 04/069 0942 Polyethylene Glycol 17 GM AT BEDTIME PRN 03/24 1515 AC 04/01 PO 210 Potassium Chloride 10 MEQ DAILY 03/25 1000 AC 04/04 PO 0941 Warfarin Sodium 7.5 MG COUMADIN 1700 ONE 04/03 1700 DC 04/03 PO 04/03 1701 1802 Vital Signs & I&O Last 24 Hrs of Vitals and I&O: Vital Signs Date Time Temp Pulse Resp B/P B/P Pulse O2 O2 Flow FiO2 Mean Ox Delivery Rate 04/04 0942 90 109/60 / 0941 90 109/60 / 0941 90 109/60 / 0912 97 Nasal 1.5L Cannula 04/04 0845 97.7 70 20 102/74 96 Nasal 1.5L Cannula / 0635 89 124/80 05/ 0554 95 Nasal 1.5L Cannula / 0103 98.7 84 16 120/78 94 Room Air 05/ 0000 Nasal 1.5L Cannula 05 2141 72 100/64 05/05 2038 95 Nasal 1.5L Cannula /05 1600 Nasal 1.5L Cannula 05/05 1558 99.8 93 20 96/58 95 Nasal 1.5L Cannula 05/05 1210 90 90/50 05/05 1138 98.8 90 90/50 Intake & Output 05/06 1600 05/06 0800 05/06 0000 Intake Total 240 720 Output Total 600 625 Balance -360 95 Intake, Oral 240 720 Output, Urine 600 625 Patient 315 lb Weight Weight Standing Scale Measurement Method Saturation 1.5 L 97% exam of his chest shows occasional rhonchi cardiac exam shows regular S1 and S2 exam of his extremities show 3+ symmetrical edema multiple venous stasis ulcers were examined and appear clean there is a ulcer over the left knee which has significant slough and requires cleansing Impression/Plan Impression/Plan Impression/Plan: Respiratory status appears improved assess room air oxygen saturation encouraged the patient to elevate his legs. Recommendations: Can you negative fluid balance as renal function allows assess room air oxygen saturation patient should elevate his legs above his heart. Aggressive wound cleansing and continue Xeroform
--- NOTE | 2017-04-04 11:39 | PN- Cardiology ---
Subjective Subjective: The patient is coughing. He complains of persistent shortness of breath. No chest pain. No palpitations. He was diagnosed with influenza, and started on Tamiflu. Objective Vital Signs and I&Os Vital Signs Date Time Temp Pulse Resp B/P B/P Pulse O2 O2 Flow FiO2 Mean Ox Delivery Rate 04/04 0942 90 109/60 / 0941 90 109/60 / 0941 90 109/60 / 0912 97 Nasal 1.5L Cannula 04/04 0845 97.7 70 20 102/74 96 Nasal 1.5L Cannula 04/04 0800 97 Nasal 1.5L Cannula 04/04 0635 89 124/80 04/04 0554 95 Nasal 1.5L Cannula 04/04 0103 98.7 84 16 120/78 94 Room Air 04/04 0000 Nasal 1.5L Cannula 04/03 2141 72 100/64 04/03 2038 95 Nasal 1.5L Cannula 04/03 1600 Nasal 1.5L Cannula 04/03 1558 99.8 93 20 96/58 95 Nasal 1.5L Cannula 04/03 1210 90 90/50 05/05 1138 98.8 90 90/50 Intake & Output 04/04 1600 04/04 0800 /06 0000 04/03 1600 04/03 0800 05 0000 Intake Total 500 240 720 800 400 960 Output Total 550 600 003 099 3801 1700 Balance -50 -360 95 200 -775 -740 Intake, Oral 500 240 720 800 400 960 Number 1 1 Bowel Movements Output, Urine 550 600 884 831 3747 1700 Patient 315 lb 319 lb Weight Weight Standing Scale Standing Scale Measurement Method Physical Exam: Gen: NAD HEENT: normal Lungs: Scattered rales, normal resp. effort Heart: RRR, S1, S2, no murmurs Abdomen: Soft, nontender, no masses Extremities: 2+ edema, dressings in place Neuro: Alert and oriented x 3, cranial nerves intact Current Medications: Current Medications Sig/Ann-Marie Start time Last Medication Dose Route Stop Time Status Admin Acetaminophen 650 MG Q4P PRN 04/03 1115 AC PO Acetylcysteine 2 ML BID 04/03 1044 AC 04/03 INH 04/05 2201 1646 Amiodarone HCl 200 MG DAILY 03/24 1459 AC 04/04 PO 0941 Aspirin Buffered 81 MG DAILY 03/24 1459 AC 04/04 PO 0941 Atorvastatin Calcium 40 MG 1700 03/24 1700 AC 04/03 PO 1802 Budesonide/ 2 PUF BID 03/24 2200 AC 04/04 Formoterol Fumarate INH 0942 Carvedilol 25 MG BID 03/24 1501 AC 04/04 PO 0941 Cholecalciferol 1,000 IU DAILY 03/25 1000 AC 04/04 PO 0942 Cyanocobalamin 1,000 MCG DAILY 03/25 1000 AC 04/04 PO 0942 Docusate Sodium 100 MG BID PRN 03/24 1530 AC 05 PO 1020 Fenofibrate 145 MG DAILY 03/25 1000 04/04 PO 0943 Furosemide 60 MG 7:30 AM, & 4:30 PM 04/02 1630 04/04 PO 0632 Gabapentin 600 MG Q8 03/24 1507 04/04 PO 0614 Guaifenesin 600 MG Q12 03/24 1525 04/04 PO 0941 Hydromorphone HCl 2 MG Q6P PRN 04/01 0815 04/04 PO 0953 Insulin Aspart 0 TIDAC/HS 03/24 1700 04/04 SC 0809 Insulin Detemir 30 UNITS BID 03/24 2200 04/04 SC 0954 Ipratropium [place] 2.5 ML EVERY 4 HRS/AWAKE 03/25 0800 AC 04/04 INH 0906 Lisinopril 5 MG DAILY 03/24 1508 04/04 PO 0942 Magnesium Chloride 64 MG BID 03/25 1000 04/04 PO 0942 Naloxone HCl 0.4 MG Q 5 MINUTES X 3 DO.. 03/24 1530 AC IV Nicotine 21 MG DAILY 03/24 1508 04/04 TOP 0940 Nystatin 1 NIKITA BID 04/04 1005 TOP Oseltamivir Phosphate 75 MG BID 04/02 2200 AC 04/04 PO 04/06 2159 0942 Polyethylene Glycol 17 GM AT BEDTIME PRN 03/24 1515 04/01 PO 2102 Potassium Chloride 10 MEQ DAILY 03/25 1000 AC 04/04 PO 0941 Warfarin Sodium 7.5 MG COUMADIN 1700 ONE 04/03 1700 DC 04/03 PO 04/03 1701 1802 Results Last 48 Hrs of Labs/Mics: Laboratory Tests 04/04/17 0745: Anion Gap 9, Estimated GFR > 60, BUN/Creatinine Ratio 33.0 H, PT 16.4 H, INR 1.57 H, CBC w Diff NO MAN DIFF REQ, RBC 4.42 L, MCV 84.1, MCH 27.5, RDW 16.5 H, MPV 8.1, Gran % 69.6, Lymphocytes % 15.0 L, Monocytes % 9.5 H, Eosinophils % 5.5 H, Basophils % 0.4, Absolute Granulocytes 3.7, Absolute Lymphocytes 0.8 L, Absolute Monocytes 0.5, Absolute Eosinophils 0.3, Absolute Basophils 0, PUBS MCHC 32.7 L 04/03/17 1008: Anion Gap 10, Estimated GFR 52 L, BUN/Creatinine Ratio 32.1 H, Phosphorus 3.4, Magnesium 1.8, PT 18.7 H, INR 1.79 H 04/02/17 183: Virus Culture Pending 04/02/17 1235: CBC w Diff NO MAN DIFF REQ, RBC 4.41 L, MCV 83.8, MCH 27.8, RDW 16.4 H, MPV 8.2, Gran % 79.9 H, Lymphocytes % 7.5 L, Monocytes % 8.2, Eosinophils % 4.3, Basophils % 0.1, Absolute Granulocytes 6.4, Absolute Lymphocytes 0.6 L, Absolute Monocytes 0.7 H, Absolute Eosinophils 0.3, Absolute Basophils 0, PUBS MCHC 33.2 Microbiology 04/02 1830 NASOPHARYN: Influenza Virus A & B Rapid Smear - COMP INFLUENZA TYPE B Assessment/Plan Assessment/Plan Assessment: 1. Atrial fibrillation 2. Acute on chronic diastolic heart failure 3. Acute COPD exacerbation 4. Supratherapeutic INR, resolved 5. Diabetes mellitus Plan: * Continue by mouth Lasix 60 mg twice a day. Would avoid holding Lasix doses if possible. * Continue Tamiflu * Follow input and output with daily weights * Check basic metabolic profile daily Continue telemetry? Yes
[2017-04-04 15:48] VITALS: BP 108/62
[2017-04-04 23:00] VITALS: BP 124/78
[2017-04-05 08:28] VITALS: BP 110/70
--- NOTE | 2017-04-05 08:40 | PN- Housestaff ---
Subjective Follow-up For: CHF exacerbation, Influenza Complaints: leg pain, productive cough, chills, Tele-Events Since Last Visit: Atrial fibrillation, heart rate ranging from 64-74, PVCs overnight. Subjective: I followed up and examined the patient today. He is resting comfortably in his recliner, complaining that he had chills overnight, his legs hurt and is still having productive cough. He has been off oxygen every once in a while whenever he walks around or goes to the bathroom. Vital signs have been stable, no issues overnight. Review of Systems Constitutional: Reports: see HPI. Objective Last 24 Hrs of Vital Signs/I&O Vital Signs Date Time Temp Pulse Resp B/P B/P Pulse O2 O2 Flow FiO2 Mean Ox Delivery Rate 04/05 1545 98.3 77 20 108/56 96 Nasal 1.5L Cannula 04/05 0935 94 Nasal 1.5L Cannula 04/05 0922 77 110/70 / 0922 77 110/70 / 0922 77 110/70 04/05 0828 97.6 77 18 110/70 96 05/07 0000 Nasal 1.5L Cannula 04/04 2300 98.0 108 20 124/78 95 Nasal 1.5L Cannula 04/04 2150 103 05/06 1720 92 Room Air Intake & Output 04/05 1600 / 0800 05/ 0000 Intake Total 250 490 Output Total 800 950 Balance -550 -460 Intake, IV 10 10 Intake, Oral 240 480 Output, Urine 800 950 Patient 142.428 kg Weight Weight Standing Scale Measurement Method Physical Exam General Appearance: Alert, Oriented X3, Cooperative, No Acute Distress Other Physical Findings: Head: Normocephalic, atraumatic Eyes: Pupils normal in size, regular, reacting to light and accommodation, EOM normal Ears: B/l normal on inspection Nose: Normal on inspection Throat/mouth: Moist mucosa Neck: Supple, full range of motion, no thyromegaly Heart: Regular rate, irregular rhythm Lung: b/l wheezes and crackles heard Abd: Soft, non-tender, no distention appreciated Back: Normal range of motion Extremities: Bilateral lower limb edema is better than Mark and still has weeping wounds that have been well dressed b/l Neurologic: Alert, oriented x3, grossly intact Skin: Warm and dry, b/l legs have blisters and ulcers, well dressed Psychiatric: Calm, cooperative, coherant Current Medications: Current Medications Sig/Ann-Marie Start time Last Medication Dose Route Stop Time Status Admin Acetaminophen 650 MG Q4P PRN 04/03 1115 AC PO Acetylcysteine 2 ML BID 04/03 1044 DC 04/03 INH 04/05 2201 1646 Amiodarone HCl 200 MG DAILY 03/24 1459 AC 04/05 PO 0922 Aspirin Buffered 81 MG DAILY 03/24 1459 AC 04/05 PO 0922 Atorvastatin Calcium 40 MG 1700 03/24 1700 AC 04/04 PO 1737 Budesonide/ 2 PUF BID 03/24 2200 AC 04/05 Formoterol Fumarate INH 0922 Carvedilol 25 MG BID 03/24 1501 AC 04/05 PO 0922 Cholecalciferol 1,000 IU DAILY 03/25 1000 AC 04/05 PO 0922 Cyanocobalamin 1,000 MCG DAILY 03/25 1000 AC 04/05 PO 0921 Docusate Sodium 100 MG BID PRN 03/24 1530 AC 03/30 PO 1020 Fenofibrate 145 MG DAILY 03/25 1000 AC 04/05 PO 0922 Furosemide 60 MG 7:30 AM, & 4:30 PM 04/05 1630 AC IV Furosemide 60 MG 7:30 AM, & 4:30 PM 04/02 1630 DC 04/05 PO 0737 Gabapentin 600 MG Q8 03/24 1507 AC 04/05 PO 1307 Guaifenesin 600 MG Q12 03/24 1525 AC 04/05 PO 0921 Hydromorphone HCl 1 MG ONCE ONE 04/05 915 DC 04/05 IV 04/05 0916 0917 Hydromorphone HCl 2 MG Q6P PRN 04/01 0815 AC 04/05 PO 1142 Insulin Aspart 0 TIDAC/HS 03/24 1700 AC 04/05 SC 1306 Insulin Detemir 30 UNITS BID 03/24 2200 AC 04/05 SC 0920 Ipratropium [place] 2.5 ML EVERY 4 HRS/AWAKE 03/25 0800 AC 04/05 INH 1346 Lisinopril 5 MG DAILY 03/24 1508 AC 04/05 PO 0922 Magnesium Chloride 64 MG BID 03/25 1000 AC 04/05 PO 0921 Naloxone HCl 0.4 MG Q 5 MINUTES X 3 DO.. 03/24 1530 AC IV Nicotine 21 MG DAILY 03/24 1508 AC 04/05 TOP 0920 Nystatin 1 NIKITA BID 04/04 1005 AC 04/05 TOP 0922 Oseltamivir Phosphate 75 MG BID 04/02 2200 AC 04/05 PO 04/06 2159 0920 Polyethylene Glycol 17 GM AT BEDTIME PRN 03/24 1515 AC 04/01 PO 2102 Potassium Chloride 10 MEQ DAILY 03/25 1000 AC 04/05 PO 0921 Warfarin Sodium 10 MG COUMADIN 1700 ONE 04/05 1700 AC PO 04/05 1701 Warfarin Sodium 10 MG COUMADIN 1700 ONE 04/04 1700 DC 04/04 PO 04/04 1701 1737 Last 24 Hrs of Lab/[place] Results Last 24 Hrs of Labs/Mics: Laboratory Tests 04/05/17 0700: Anion Gap 10, Estimated GFR > 60, BUN/Creatinine Ratio 29.2 H, Magnesium 1.9, PT 20.3 H, INR 1.95 H Assessment/Plan Assessment: 61 y/o M with PMHx of COPD and TOMASZ on home oxygen (1.5 L at daytime and 2 L at night), HFpEF and atrial fibrillation on warfarin who is admitted for acute on chronic diastolic CHF. #Acute on chronic HFpEF: Persistent leg edema despite significant diuresis since admission. Wound in the legs are just the same today and still doesn't appear infected. * Continue telemetry monitoring. * Converted to IV Lasix 60 mg every 12 hours per cardiology. * Monitor I/Os and daily BMPs. * Continue carvedilol 25 mg PO BID * Encourage leg elevation. * Cleanse leg wounds aggressively and continue Xeroform dressing. #Atrial fibrillation: Heart rate well-controlled. INR 1.95(subtherapeutic) today. * Continue to monitor INR daily and dose warfarin accordingly to keep INR 2-2.5. * Administer 10 mg of warfarin this evening. #COPD: Sputum culture with mixed jocelyne. * Chest CT scan, did NOT show acute pathology, but did mention wanting loss and atelectatic changes, micronodules, borderline sized mediastinal and left hilar lymph nodes, multiple thyroid nodules. * Continue Mucinex 600 mg PO BID. Mucomist nebulization started on Thursday for two days max per pulm. recommendation. * TRC/nebs. * Provide supplemental oxygen to keep SpO2 > 92%. * Continue Symbicort 2 puffs BID. #Insulin-dependent T2DM: Blood sugars well-controlled today. * Monitor blood sugars closely while on steroids. * Continue Levemir 30 units SQ BID. * Accu-checks and high-dose sliding scale Novolog TIDAC. Diet: Consistent Carbohydrate 3 with 2 g Na Restriction DVT PPx: Warfarin and ALPS CODE: FULL CODE Problem List: 1. CHF exacerbation 2. Influenza Pain Ratin Pain Location: legs Pain Goal: Pain 4 or less Pain Plan: prn Tomorrow's Labs & Rationales: INR today was Coumadin, CBC, BEP, Mg to replete.
--- NOTE | 2017-04-05 09:04 | PN- Pulmonary ---
Subjective HPI/Critical Care Issues: Patient continues to feel congested lower extremity edema persists Objective Current Medications: Current Medications Sig/Ann-Marie Start time Last Medication Dose Route Stop Time Status Admin Acetaminophen 650 MG Q4P PRN 04/03 1115 AC PO Acetylcysteine 2 ML BID 04/03 1044 AC 04/03 INH 04/05 2201 1646 Amiodarone HCl 200 MG DAILY 03/24 1459 AC 04/04 PO 0941 Aspirin Buffered 81 MG DAILY 03/24 1459 AC 04/04 PO 0941 Atorvastatin Calcium 40 MG 1700 03/24 1700 AC 04/04 PO 1737 Budesonide/ 2 PUF BID 03/24 2200 AC 04/04 Formoterol Fumarate INH 2149 Carvedilol 25 MG BID 03/24 1501 AC 04/04 PO 2150 Cholecalciferol 1,000 IU DAILY 03/25 1000 AC 04/04 PO 0942 Cyanocobalamin 1,000 MCG DAILY 03/25 1000 AC 04/04 PO 0942 Docusate Sodium 100 MG BID PRN 03/24 1530 AC 03/30 PO 1020 Fenofibrate 145 MG DAILY 03/25 1000 AC 04/04 PO 0943 Furosemide 60 MG 7:30 AM, & 4:30 PM 04/02 1630 AC 04/05 PO 0737 Gabapentin 600 MG Q8 03/24 1507 AC 04/05 PO 0607 Guaifenesin 600 MG Q12 03/24 1525 AC 04/04 PO 2150 Hydromorphone HCl 1 MG ONCE ONE 04/05 0915 UNVr IV 04/05 0916 Hydromorphone HCl 2 MG Q6P PRN 04/01 0815 AC 04/05 PO 0415 Insulin Aspart 0 TIDAC/HS 03/24 1700 AC 04/05 SC 0734 Insulin Detemir 30 UNITS BID 03/24 2200 AC 04/04 SC 2150 Ipratropium [place] 2.5 ML EVERY 4 HRS/AWAKE 03/25 0800 AC 04/04 INH 2130 Lisinopril 5 MG DAILY 03/24 1508 AC 04/04 PO 0942 Magnesium Chloride 64 MG BID 03/25 1000 AC 04/04 PO 2150 Naloxone HCl 0.4 MG Q 5 MINUTES X 3 DO.. 03/24 1530 AC IV Nicotine 21 MG DAILY 03/24 1508 AC 04/04 TOP 0940 Nystatin 1 NIKITA BID 04/04 1005 AC 04/04 TOP 2149 Oseltamivir Phosphate 75 MG BID 04/02 2200 AC / PO 04/06 2159 2151 Polyethylene Glycol 17 GM AT BEDTIME PRN 03/24 1515 AC 04/01 PO 2102 Potassium Chloride 10 MEQ DAILY 03/25 1000 AC 04/04 PO 0941 Warfarin Sodium 10 MG COUMADIN 1700 ONE 04/04 1700 DC 04/04 PO 04/04 1701 1737 Vital Signs & I&O Last 24 Hrs of Vitals and I&O: Vital Signs Date Time Temp Pulse Resp B/P B/P Pulse O2 O2 Flow FiO2 Mean Ox Delivery Rate 04/05 828 97.6 77 18 110/70 96 05/ 0000 Nasal 1.5L Cannula 04/04 2300 98.0 108 20 124/78 95 Nasal 1.5L Cannula 04/04 2150 103 / 1720 92 Room Air 04/04 1600 Nasal 1.5L Cannula 04/04 1548 98.0 80 20 108/62 93 Room Air 04/04 0942 90 109/60 / 0941 90 109/60 / 0941 90 109/60 / 0912 97 Nasal 1.5L Cannula Intake & Output 04/05 1600 04/05 0800 05/ 0000 Intake Total 250 490 Output Total 800 950 Balance -550 -460 Intake, IV 10 10 Intake, Oral 240 480 Output, Urine 800 950 Patient 314 lb Weight Weight Standing Scale Measurement Method Oxygen saturation 1.5 L 96% exam of his chest shows scattered rhonchi cardiac exam shows regular S1 and S2 lower extremities continue to show 2+ edema Impression/Plan Impression/Plan Impression/Plan: Respiratory status appears improved assess room air oxygen saturation encouraged the patient to elevate his legs. Recommendations: Continue negative fluid balance as renal function allows assess room air oxygen saturation patient should elevate his legs above his heart. Aggressive wound cleansing and continue Xeroform. Clarify IV versus by mouth Lasix
[2017-04-05 09:37] LABS: PT 20.3 SEC (9.4-12.5)
--- NOTE | 2017-04-05 10:04 | PN- Student ---
Subjective Subjective: Today Mr. Johnson is feeling better than the last few days. He stated that he had a rough night last night due to pain and difficulty breathing. He has had a cough productive of white foamy sputum and states that he has still been experiencing chills although not as bad as before. He denies any chest pain or palpitations, headache or vision changes, abdominal pain, or urinary and bowel problems. He states that he usually has a bowel movement every few days that is large in volume but normal in consistency. Objective Objective: Vital Signs Date Time Temp Pulse Resp B/P B/P Pulse O2 O2 Flow FiO2 Mean Ox Delivery Rate 04/05 922 77 110/70 04/05 0922 77 110/70 04/05 922 77 110/70 04/05 0828 97.6 77 18 110/70 96 / 0000 Nasal 1.5L Cannula 04/04 2300 98.0 108 20 124/78 95 Nasal 1.5L Cannula 04/04 2150 103 05/ 1720 92 Room Air 04/04 1600 Nasal 1.5L Cannula 04/04 1548 98.0 80 20 108/62 93 Room Air Intake & Output 04/05 1600 04/05 0800 05/ 0000 Intake Total 250 490 Output Total 800 950 Balance -550 -460 Intake, IV 10 10 Intake, Oral 240 480 Output, Urine 800 950 Patient 314 lb Weight Weight Standing Scale Measurement Method Telemetry: atrial fibrillation 64-74 with BBB, and PVCs Labs: BUN- 35, Art Teacher- 1.2, WBC- 5.3, Glucose-107 Notes: Influenza B positive PE: General appearance- alert and oriented x3, seated comfortably in chair, NAD HEENT- atraumatic, PEERLA, mucus membranes moist and pink Neck- supple, no JVD, no thyromegaly or lymphadenopathy, trachea is midline CV- S1 and S2 heard, irregularly irregular, no murmurs rubs or gallops noted on auscultation Chest- diffuse rhonchi and expiratory wheezes are heard on auscultation. good air movement but breathing is labored Abd- soft, non-tender to palpation Skin- warm and well perfused, lower extremity wounds appear to be healing up nicely. Still oozing clear fluid but greatly decreased from previous exam. Ext- 2+ pitting edema bilaterally on Lower extremity. Edema has slight to no improvement from previous examination by me. Results Results: Laboratory Tests 04/05/17 0700: Anion Gap 10, Estimated GFR > 60, BUN/Creatinine Ratio 29.2 H, Magnesium 1.9, PT 20.3 H, INR 1.95 H 04/04/17 0745: Anion Gap 9, Estimated GFR > 60, BUN/Creatinine Ratio 33.0 H, PT 16.4 H, INR 1.57 H, CBC w Diff NO MAN DIFF REQ, RBC 4.42 L, MCV 84.1, MCH 27.5, RDW 16.5 H, MPV 8.1, Gran % 69.6, Lymphocytes % 15.0 L, Monocytes % 9.5 H, Eosinophils % 5.5 H, Basophils % 0.4, Absolute Granulocytes 3.7, Absolute Lymphocytes 0.8 L, Absolute Monocytes 0.5, Absolute Eosinophils 0.3, Absolute Basophils 0, PUBS MCHC 32.7 L 04/03/17 1008: Anion Gap 10, Estimated GFR 52 L, BUN/Creatinine Ratio 32.1 H, Phosphorus 3.4, Magnesium 1.8, PT 18.7 H, INR 1.79 H 04/02/17 183: Virus Culture Pending 04/02/17 1235: CBC w Diff NO MAN DIFF REQ, RBC 4.41 L, MCV 83.8, MCH 27.8, RDW 16.4 H, MPV 8.2, Gran % 79.9 H, Lymphocytes % 7.5 L, Monocytes % 8.2, Eosinophils % 4.3, Basophils % 0.1, Absolute Granulocytes 6.4, Absolute Lymphocytes 0.6 L, Absolute Monocytes 0.7 H, Absolute Eosinophils 0.3, Absolute Basophils 0, PUBS MCHC 33.2 Microbiology 04/03 2057 LOWER RESP: Respiratory Culture - RES GRAM NEGATIVE RODS 04/03 2057 LOWER RESP: Gram Stain - RES 04/02 1830 NASOPHARYN: Influenza Virus A & B Rapid Smear - COMP INFLUENZA TYPE B 04/02 1200 BLOOD: Blood Culture - RES 04/02 1200 BLOOD: Blood Culture - RES Assessment/Plan Assessment: Mr. Johnson is a 61 yo M with a PMH of A-fib, CHF, CAD, HTN, Hyperlipidemia, an CT (stent in 2003), COPD (on 2L NC at home), Bronchitis, and diabetes mellitus. He was admitted to telemetry, from Dr. Cosby's office visit, on 03/24 with worsening dyspnea, lower extremity pain, and weeping sores on both lower extremities. He fell at home 3 days ago while trying to go to the bathroom and was unable to get up for several hours. He sustained numerous abrasions on both lower extemities while trying to get off of the floor which have been weeping fluid. He described his initial leg pain as 17/15 on a pain scale and was 10/15 on admission. During the admission he also reported a cough that has been productive of green phlegm plugs. He denied any chest pain but did state that he had chills the night that he fell. Today Mr. Johnson is feeling better than he was on thursday. He is still in isolation for influenza and is recovering well. His lower extremity edema shows no improvement and his lungs sound much worse than previous exam. He is coughing up white foamy sputum which does not show any sign of bacterial infection. He states he has had chills but no fever, and his lower extremity pain has been severe. His vitals have been stable the last 24 hours and he is still being given tamiflu. Current Medications Sig/Ann-Marie Start time Last Medication Dose Route Stop Time Status Admin Acetaminophen 650 MG Q4P PRN 04/03 1115 AC PO Acetylcysteine 2 ML BID 04/03 1044 DC 04/03 INH 04/05 2201 1646 Amiodarone HCl 200 MG DAILY 03/24 1459 AC 04/05 PO 0922 Aspirin Buffered 81 MG DAILY 03/24 1459 AC 04/05 PO 0922 Atorvastatin Calcium 40 MG 1700 03/24 1700 AC 04/04 PO 1737 Budesonide/ 2 PUF BID 03/24 2200 AC 04/05 Formoterol Fumarate INH 0922 Carvedilol 25 MG BID 03/24 1501 AC 04/05 PO 0922 Cholecalciferol 1,000 IU DAILY 03/25 1000 AC 04/05 PO 0922 Cyanocobalamin 1,000 MCG DAILY 03/25 1000 AC 04/05 PO 0921 Docusate Sodium 100 MG BID PRN 03/24 1530 AC 05 PO 1020 Fenofibrate 145 MG DAILY 03/25 1000 AC 04/05 PO 0922 Furosemide 60 MG 7:30 AM, & 4:30 PM 04/02 1630 AC 04/05 PO 0737 Gabapentin 600 MG Q8 03/24 1507 AC 04/05 PO 0607 Guaifenesin 600 MG Q12 03/24 1525 AC 04/05 PO 0921 Hydromorphone HCl 1 MG ONCE ONE 04/05 0915 DC 04/05 IV 04/05 0916 0917 Hydromorphone HCl 2 MG Q6P PRN 04/01 0815 AC 04/05 PO 0415 Insulin Aspart 0 TIDAC/HS 03/24 1700 AC 04/05 SC 0734 Insulin Detemir 30 UNITS BID 03/24 2200 AC 04/05 SC 0920 Ipratropium [place] 2.5 ML EVERY 4 HRS/AWAKE 03/25 0800 AC 04/05 INH 0936 Lisinopril 5 MG DAILY 03/24 1508 AC 04/05 PO 0922 Magnesium Chloride 64 MG BID 03/25 1000 AC 04/05 PO 0921 Naloxone HCl 0.4 MG Q 5 MINUTES X 3 DO.. 03/24 1530 AC IV Nicotine 21 MG DAILY 03/24 1508 AC 04/05 TOP 0920 Nystatin 1 NIKITA BID 04/04 1005 AC 04/05 TOP 0922 Oseltamivir Phosphate 75 MG BID 04/02 2200 AC 04/05 PO 04/06 2159 0920 Polyethylene Glycol 17 GM AT BEDTIME PRN 03/24 1515 AC 04/01 PO 2102 Potassium Chloride 10 MEQ DAILY 03/25 1000 AC 04/05 PO 0921 Warfarin Sodium 10 MG COUMADIN 1700 ONE 04/04 1700 DC 04/04 PO 04/04 1701 1737 Plan: Overall Mr. Johnson is recovering well from his influenza, however his lung sounds are very rhocherous and congested. His Lower extremity edema has not improved on the PO lasix so we will switch to IV lasix as per Cardio. He will continue his oseltamavir for his influenza and diurese as kidneys allow as per pulm. We will continue to address his pain with dilaudid 2 mg PO Q6P. Problem List: 1. Influenza B positive- oseltamavir 75 mg PO BID for 5 days. Treat in isolation 2. Wounds- continue with wound care protocol. 3. LE edema with chronic venous stasis- will change to lasix 60 mg IV BID 4. Elevated troponins- continue to monitor labs, latest show downward trend 5. Supratherapeutic INR- dose coumadin 5 mg PO daily to target of 2-3 (today INR was 1.95 subtherapeutic) 6. Atrial fibrillation- continue aspirin and coumadin and dose for target INR of 2-3 7. COPD exacerbation- continue home medications. Continue oxygen therapy at 1.5L NC during day and 2.0L at night. 8. Obesity- Educate patient on healthy diet strategies. 9. Diabetes- Diabetic Diet. continue to monitor glucose and continue home medication Diet: heart healthy diet DVT prophylaxis: Warfarin Code Status: full code
--- NOTE | 2017-04-05 10:53 | PN- Cardiology ---
Subjective Subjective: The patient continues to complain of significant shortness of breath and coughing. He received by mouth Lasix yesterday. He has been started on Tamiflu for influenza. Pain. No diaphoresis. No syncope. No lightheadedness or dizziness. Objective Vital Signs and I&Os Vital Signs Date Time Temp Pulse Resp B/P B/P Pulse O2 O2 Flow FiO2 Mean Ox Delivery Rate 04/05 922 77 110/70 04/05 922 77 110/70 04/05 922 77 110/70 04/05 0828 97.6 77 18 110/70 96 / 0000 Nasal 1.5L Cannula 04/04 2300 98.0 108 20 124/78 95 Nasal 1.5L Cannula 04/04 2150 103 04/04 1720 92 Room Air 04/04 1600 Nasal 1.5L Cannula 04/04 1548 98.0 80 20 108/62 93 Room Air Intake & Output 04/05 1600 04/05 0800 / 0000 04/04 1600 04/04 0800 04/04 0000 Intake Total 250 490 800 240 720 Output Total 466 774 4646 600 625 Balance -550 -460 -350 -360 95 Intake, IV 10 10 Intake, Oral 240 480 800 240 720 Number 1 Bowel Movements Output, Urine 871 705 0285 600 625 Patient 314 lb 315 lb Weight Weight Standing Scale Standing Scale Measurement Method Physical Exam: Gen: NAD HEENT: normal Lungs: Scattered rales, normal resp. effort Heart: RRR, S1, S2, no murmurs Abdomen: Soft, nontender, no masses Extremities: 2+ edema, dressings in place Neuro: Alert and oriented x 3, cranial nerves intact Current Medications: Current Medications Sig/Ann-Marie Start time Last Medication Dose Route Stop Time Status Admin Acetaminophen 650 MG Q4P PRN 04/03 1115 AC PO Acetylcysteine 2 ML BID 04/03 1044 DC 04/03 INH 04/05 2201 1646 Amiodarone HCl 200 MG DAILY 03/24 145 AC 04/05 PO 09 Aspirin Buffered 81 MG DAILY 03/24 1459 AC 04/05 PO 09 Atorvastatin Calcium 40 MG 1700 03/24 1700 AC 04/04 PO 1737 Budesonide/ 2 PUF BID 03/24 2200 AC 04/05 Formoterol Fumarate INH 921 Carvedilol 25 MG BID 03/24 1501 AC 04/05 PO 0922 Cholecalciferol 1,000 IU DAILY 03/25 1000 AC 04/05 PO 0922 Cyanocobalamin 1,000 MCG DAILY 03/25 1000 AC 04/05 PO 0921 Docusate Sodium 100 MG BID PRN 03/24 1530 AC 03/30 PO 1020 Fenofibrate 145 MG DAILY 03/25 1000 AC 04/05 PO 0922 Furosemide 60 MG 7:30 AM, & 4:30 PM 04/02 1630 04/05 PO 0737 Gabapentin 600 MG Q8 03/24 1507 AC 04/05 PO 0607 Guaifenesin 600 MG Q12 03/24 1525 AC 04/05 PO 0921 Hydromorphone HCl 1 MG ONCE ONE 04/05 0915 DC 04/05 IV 04/05 0916 0917 Hydromorphone HCl 2 MG Q6P PRN 04/01 0815 04/05 PO 0415 Insulin Aspart 0 TIDAC/HS 03/24 1700 04/05 SC 0734 Insulin Detemir 30 UNITS BID 03/24 2200 04/05 SC 0920 Ipratropium [place] 2.5 ML EVERY 4 HRS/AWAKE 03/25 0800 AC 04/05 INH 0936 Lisinopril 5 MG DAILY 03/24 1508 AC 04/05 PO 0922 Magnesium Chloride 64 MG BID 03/25 1000 AC 04/05 PO 0921 Naloxone HCl 0.4 MG Q 5 MINUTES X 3 DO.. 03/24 1530 AC IV Nicotine 21 MG DAILY 03/24 1508 AC 04/05 TOP 0920 Nystatin 1 NIKITA BID 04/04 1005 04/05 TOP 0922 Oseltamivir Phosphate 75 MG BID 04/02 2200 AC 04/05 PO 04/06 2159 0920 Polyethylene Glycol 17 GM AT BEDTIME PRN 03/24 1515 AC 04/01 PO 2102 Potassium Chloride 10 MEQ DAILY 03/25 1000 AC 04/05 PO 0921 Warfarin Sodium 10 MG COUMADIN 1700 ONE 04/04 1700 NE 04/04 PO 04/04 1701 1737 Results Last 48 Hrs of Labs/Mics: Laboratory Tests 04/05/17 0700: Anion Gap 10, Estimated GFR > 60, BUN/Creatinine Ratio 29.2 H, Magnesium 1.9, PT 20.3 H, INR 1.95 H 04/04/17 0745: Anion Gap 9, Estimated GFR > 60, BUN/Creatinine Ratio 33.0 H, PT 16.4 H, INR 1.57 H, CBC w Diff NO MAN DIFF REQ, RBC 4.42 L, MCV 84.1, MCH 27.5, RDW 16.5 H, MPV 8.1, Gran % 69.6, Lymphocytes % 15.0 L, Monocytes % 9.5 H, Eosinophils % 5.5 H, Basophils % 0.4, Absolute Granulocytes 3.7, Absolute Lymphocytes 0.8 L, Absolute Monocytes 0.5, Absolute Eosinophils 0.3, Absolute Basophils 0, PUBS MCHC 32.7 L Assessment/Plan Assessment/Plan Assessment: 1. Atrial fibrillation 2. Acute on chronic diastolic heart failure 3. Acute COPD exacerbation 4. Supratherapeutic INR, resolved 5. Diabetes mellitus Plan: * Resume IV Lasix 60 mg every 12 hours * Continue Tamiflu * Monitor input and output with daily weights * Plan on possible discharge Thursday, to [facility] for outpatient IV Lasix * Check basic metabolic profile in the morning Continue telemetry? Yes
[2017-04-05 15:45] VITALS: BP 108/56
[2017-04-06 00:28] VITALS: BP 98/60
--- NOTE | 2017-04-06 07:29 | PN- Housestaff ---
Subjective Follow-up For: CHF exacerbation Complaints: baseline today Tele-Events Since Last Visit: Atrial fibrillation with some PVCs, heart rate ranging from 69-79. Subjective: Patient examined and followed up by me today. He is resting comfortably in his recliner, feels much better, bilateral leg swellings has decreased with compression stockings, breathing is better, has some chills, feels that he can go home today. Review of Systems Constitutional: Reports: see HPI. Objective Last 24 Hrs of Vital Signs/I&O Vital Signs Date Time Temp Pulse Resp B/P B/P Pulse O2 O2 Flow FiO2 Mean Ox Delivery Rate 04/06 1043 96 Nasal 1.5L Cannula 04/06 1042 96 98/60 04/06 1018 96 Nasal 1.5L Cannula 04/06 0730 97.9 74 20 98/60 96 Nasal 1.5L Cannula 04/06 0028 98.3 77 20 98/60 95 /08 0000 Nasal 1.5L Cannula 04/05 2121 79.0 118/72 Intake & Output 04/06 1600 04/06 0800 /08 0000 Intake Total 1480 400 420 Output Total 1710 1000 1150 Balance -230 -600 -730 Intake, Oral 1480 400 420 Number 1 Bowel Movements Output, Urine 1710 1000 1150 Patient 144.242 kg Weight Weight Chair scale Measurement Method Physical Exam General Appearance: Alert, Oriented X3, Cooperative, No Acute Distress, obese Other Physical Findings: Head: Normocephalic, atraumatic Eyes: Pupils normal in size, regular, reacting to light and accommodation, EOM normal Ears: B/l normal on inspection Nose: Normal on inspection Throat/mouth: Moist mucosa Neck: Supple, full range of motion, no thyromegaly Heart: Regular rate, irregular rhythm Lung: no wheeze heard today, better than yesterday Abd: Soft, non-tender, no distention appreciated Back: Normal range of motion Extremities: Bilateral lower limb edema is better than yesterday, still has some weeping wounds Neurologic: Alert, oriented x3, grossly intact Skin: Warm and dry, b/l legs have blisters and ulcers, now better, well dressed Psychiatric: Calm, cooperative, coherant Current Medications: Current Medications Sig/Ann-Marie Start time Last Medication Dose Route Stop Time Status Admin Acetaminophen 650 MG Q4P PRN 04/03 1115 DCD PO Amiodarone HCl 200 MG DAILY 03/24 1459 DCD 05 PO 0922 Aspirin Buffered 81 MG DAILY 03/24 1459 DCD 05 PO 0925 Atorvastatin Calcium 40 MG 1700 03/24 1700 DCD 05 PO 1639 Budesonide/ 2 PUF BID 03/24 2200 DCD 05 Formoterol Fumarate INH 0929 Carvedilol 25 MG BID 03/24 1501 DCD 04/05 PO 2121 Cholecalciferol 1,000 IU DAILY 03/25 1000 DCD 04/06 PO 0930 Cyanocobalamin 1,000 MCG DAILY 03/25 1000 DCD 04/06 PO 0930 Docusate Sodium 100 MG BID PRN 03/24 1530 DCD 03/30 PO 1020 Fenofibrate 145 MG DAILY 03/25 1000 DCD 04/06 PO 0930 Furosemide 60 MG 7:30 AM, & 4:30 PM 04/06 1630 DCD PO Furosemide 60 MG 7:30 AM, & 4:30 PM 04/05 1630 DC 04/06 IV 0918 Gabapentin 600 MG Q8 03/24 1507 DCD 05 PO 1357 Guaifenesin 600 MG Q12 03/24 1525 DCD 04/06 PO 0926 Hydromorphone HCl 2 MG Q6P PRN 04/01 0815 DCD 04/06 PO 1358 Insulin Aspart 0 TIDAC/HS 03/24 1700 DCD 05 SC 1304 Insulin Detemir 30 UNITS BID 03/24 2200 DCD 04/06 SC 0757 Ipratropium [place] 2.5 ML EVERY 4 HRS/AWAKE 03/25 0800 DCD 04/06 INH 1415 Lisinopril 5 MG DAILY 03/24 1508 DCD 05 PO 0922 Magnesium Chloride 64 MG BID 03/25 1000 DCD 04/06 PO 0928 Naloxone HCl 0.4 MG Q 5 MINUTES X 3 DO.. 03/24 1530 DCD IV Nicotine 21 MG DAILY 03/24 1508 DCD 04/06 TOP 0926 Nystatin 1 NIKITA BID 04/04 1005 DCD 04/06 TOP 1357 Oseltamivir Phosphate 75 MG BID 04/02 2200 DCD 0508 PO 08 2159 0929 Patient Medication 1 UNIT 1700 04/06 1700 DCD Teaching ED 04/06 1701 Patient Medication 1 UNIT 1630 04/06 1630 [facility] ED 04/06 1631 Polyethylene Glycol 17 GM AT BEDTIME PRN 03/24 1515 PAD 04/01 PO 2102 Potassium Chloride 10 MEQ DAILY 03/25 1000 PAD 04/06 PO 0925 Warfarin Sodium 10 MG COUMADIN 1700 04/06 1700 [facility] PO 04/06 2359 Last 24 Hrs of Lab/[place] Results Last 24 Hrs of Labs/Mics: Laboratory Tests 04/06/17 0611: Anion Gap 10, Estimated GFR > 60, BUN/Creatinine Ratio 30.0 H, Magnesium 1.9, PT 29.3 H, INR 2.82 H, CBC w Diff NO MAN DIFF REQ, RBC 4.49 L, MCV 84.3, MCH 27.7, RDW 16.7 H, MPV 8.6, Gran % 69.7, Lymphocytes % 16.0 L, Monocytes % 6.6, Eosinophils % 7.4 H, Basophils % 0.3, Absolute Granulocytes 4.2, Absolute Lymphocytes 1.0 L, Absolute Monocytes 0.4, Absolute Eosinophils 0.5, Absolute Basophils 0, PUBS MCHC 32.9 L Assessment/Plan Assessment: 61 y/o M with PMHx of COPD and TOMASZ on home oxygen (1.5 L at daytime and 2 L at night), HFpEF and atrial fibrillation on warfarin who is admitted for acute on chronic diastolic CHF. #Discharge disposition: Patient's condition is much better than upon admission, he had a longer course of stay length expected. However he can be safely discharged to home with health services or with follow-up to CHF clinic twice a week. He seems to understand his condition and plans to be compliant. #Acute on chronic HFpEF: Persistent leg edema despite significant diuresis since admission. Wound in the legs are just the same today and still doesn't appear infected. * Continue telemetry monitoring. * Converted to PO Lasix 60 mg every 12 hours per cardiology as home discharge medication. * Monitor I/Os and daily BMPs. * Continue carvedilol 25 mg PO BID * Encourage leg elevation, and compression stocking. * Cleanse leg wounds aggressively and continue Xeroform dressing. #Influenza: Continue oseltamivir 75 mg twice a day to complete a total 5 days of antiviral medication. #Atrial fibrillation: Heart rate well-controlled. INR 2.82 (therapeutic) today. * Continue to monitor INR daily and dose warfarin accordingly to keep INR 2-2.5. * Administer 10 mg of warfarin this evening. He needs to check his INR after discharge to possibly readjust his warfarin dosing. #COPD: Sputum culture with mixed jocelyne. * Chest CT scan, did NOT show acute pathology, but did mention wanting loss and atelectatic changes, micronodules, borderline sized mediastinal and left hilar lymph nodes, multiple thyroid nodules. * No respiratory sputum culture was positive for Pseudomonas aeruginosa, but patient does not appear to be diseased by it given the clinical condition. Is likely to be a colonization according to pulmonary consult. * Continue Mucinex 600 mg PO BID. Mucomist nebulization started on Thursday for two days max per pulm. recommendation. * TRC/nebs. * Provide supplemental oxygen to keep SpO2 > 92%. * Continue Symbicort 2 puffs BID. #Insulin-dependent T2DM: Blood sugars well-controlled today. * Monitor blood sugars closely while on steroids. * Continue Levemir 30 units SQ BID. * Accu-checks and high-dose sliding scale Novolog TIDAC. Diet: Consistent Carbohydrate 3 with 2 g Na Restriction DVT PPx: Warfarin and ALPS CODE: FULL CODE Problem List: 1. CHF exacerbation 2. Influenza Pain Ratin Pain Location: legs, now less hurting Pain Goal: Pain 4 or less Pain Plan: home meds optimized Tomorrow's Labs & Rationales: -
[2017-04-06 07:30] VITALS: BP 98/60
[2017-04-06 08:00] LABS: ABSOLUTE BASOPHIL COUNT 0 /CUMM (0.0-0.2); ABSOLUTE EOSINOPHIL COUNT 0.5 /CUMM (0.0-0.7); ABSOLUTE GRANULOCYTE CT 4.2 /CUMM (1.4-6.5); ABSOLUTE MONOCYTE COUNT 0.4 /CUMM (0.10-0.60); BASOPHIL % 0.3 % (0.0-2.0); EOSINOPHIL % 7.4 % (0-5); GRANULOCYTE % 69.7 % (42.2-75.2); HEMATOCRIT 37.9 % (42-52); MEAN CORPUSCULAR HGB 27.7 PG (27.0-31.0); MEAN CORPUSCULAR HGB CONC 32.9 G/DL (33.0-37.0); MEAN CORPUSCULAR VOLUME 84.3 FL (80.0-94.0); MEAN PLATELET VOLUME 8.6 FL (7.4-10.4); PLATELET COUNT 210 /CUMM (130-400); RBC DISTRIBUTION WIDTH 16.7 % (11.5-14.5); RED BLOOD CELL CT 4.49 /CUMM (4.70-6.10); WHITE BLOOD CELL COUNT 6.1 /CUMM (4.8-10.8)
[2017-04-06 08:17] LABS: PT 29.3 SEC (9.4-12.5)
--- NOTE | 2017-04-06 08:30 | PN- Student ---
Subjective Subjective: This morning Mr. Johnson reports feeling ill. He is having chills, cough productive of white sputum and states having a headache last night that has since dissipated. He feels that overall his breathing has improved since the weekend and reports that his pain is a little better controlled today. He denies any chest pain, palpitations, nausea or vomiting. He also reports no abdominal pain or change in bathroom habits. Objective Objective: Vital Signs Date Time Temp Pulse Resp B/P B/P Pulse O2 O2 Flow FiO2 Mean Ox Delivery Rate 04/06 0028 98.3 77 20 98/60 95 05/08 0000 Nasal 1.5L Cannula 04/05 2121 79.0 118/72 04/05 1645 96 Nasal 1.5L Cannula 04/05 1600 Nasal 1.0L Cannula 04/05 1545 98.3 77 20 108/56 96 Nasal 1.5L Cannula 04/05 0935 94 Nasal 1.5L Cannula 04/05 0922 77 110/70 04/05 0922 77 110/70 04/05 0922 77 110/70 Intake & Output 04/06 1600 04/06 0800 05/ 0000 Intake Total 400 420 Output Total 360 1000 1150 Balance -360 -600 -730 Intake, Oral 400 420 Output, Urine 360 1000 1150 Patient 318 lb Weight Weight Chair scale Measurement Method Telemetry: atrial fibrillation 69-79 w/ BBB and PVCs CXR: no evidence of pneumonia or decompensation. PE: General appearance- alert and oriented x3, seated comfortably in chair with blankets wrapped around him, NAD HEENT- atraumatic, PEERLA, mucus membranes moist and pink Neck- supple, no JVD, no thyromegaly or lymphadenopathy, trachea is midline CV- S1 and S2 heard, irregularly irregular, no murmurs rubs or gallops noted on auscultation Chest- diffuse rhonchi and expiratory wheezes are heard on auscultation. good air movement but breathing is labored Abd- soft, non-tender to palpation Skin- warm and well perfused, lower extremity wounds appear to be healing up nicely. Still oozing clear fluid but greatly decreased from previous exam. Ext- 2+ pitting edema bilaterally on Lower extremity. Edema has some improvement from previous examination. He is wearing compression stockings which seem to be helping. Results Results: Laboratory Tests 04/06/17 0611: Anion Gap 10, Estimated GFR > 60, BUN/Creatinine Ratio 30.0 H, Magnesium 1.9, PT 29.3 H, INR 2.82 H, CBC w Diff NO MAN DIFF REQ, RBC 4.49 L, MCV 84.3, MCH 27.7, RDW 16.7 H, MPV 8.6, Gran % 69.7, Lymphocytes % 16.0 L, Monocytes % 6.6, Eosinophils % 7.4 H, Basophils % 0.3, Absolute Granulocytes 4.2, Absolute Lymphocytes 1.0 L, Absolute Monocytes 0.4, Absolute Eosinophils 0.5, Absolute Basophils 0, PUBS MCHC 32.9 L 04/05/17 0700: Anion Gap 10, Estimated GFR > 60, BUN/Creatinine Ratio 29.2 H, Magnesium 1.9, PT 20.3 H, INR 1.95 H 04/04/17 0745: Anion Gap 9, Estimated GFR > 60, BUN/Creatinine Ratio 33.0 H, PT 16.4 H, INR 1.57 H, CBC w Diff NO MAN DIFF REQ, RBC 4.42 L, MCV 84.1, MCH 27.5, RDW 16.5 H, MPV 8.1, Gran % 69.6, Lymphocytes % 15.0 L, Monocytes % 9.5 H, Eosinophils % 5.5 H, Basophils % 0.4, Absolute Granulocytes 3.7, Absolute Lymphocytes 0.8 L, Absolute Monocytes 0.5, Absolute Eosinophils 0.3, Absolute Basophils 0, PUBS MCHC 32.7 L 04/03/17 1008: Anion Gap 10, Estimated GFR 52 L, BUN/Creatinine Ratio 32.1 H, Phosphorus 3.4, Magnesium 1.8, PT 18.7 H, INR 1.79 H Microbiology 04/03 2057 LOWER RESP: Respiratory Culture - RES GRAM NEGATIVE RODS 04/03 2057 LOWER RESP: Gram Stain - RES Assessment/Plan Assessment: Overall Mr. Johnson seems to be doing better. He has had no documented fevers and his vitals have been normal. He has been removing his nasal cannula frequently yet his pulse oximetry still reads a saturation of 95%. He is at baseline on his nasal cannula and his lower extremity edema has greatly improved since his admission. The lower extremity wounds are healing well and have fresh bandages. Chest X-ray showed no signs of pneumonia or effusion, and respiratory culture grew small amount of pseudomonas aeruginosa. Patient is most likely colonized. Current Medications Sig/Ann-Marie Start time Last Medication Dose Route Stop Time Status Admin Acetaminophen 650 MG Q4P PRN 04/03 1115 AC PO Amiodarone HCl 200 MG DAILY 03/24 1459 AC 04/05 PO 0922 Aspirin Buffered 81 MG DAILY 03/24 1459 AC 04/06 PO 0925 Atorvastatin Calcium 40 MG 1700 03/24 1700 AC 04/05 PO 1639 Budesonide/ 2 PUF BID 03/24 2200 AC 04/06 Formoterol Fumarate INH 0929 Carvedilol 25 MG BID 03/24 1501 AC 04/05 PO 2121 Cholecalciferol 1,000 IU DAILY 03/25 1000 AC 04/06 PO 0930 Cyanocobalamin 1,000 MCG DAILY 03/25 1000 AC 04/06 PO 0930 Docusate Sodium 100 MG BID PRN 03/24 1530 AC 05 PO 1020 Fenofibrate 145 MG DAILY 03/25 1000 AC 04/06 PO 0930 Furosemide 60 MG 7:30 AM, & 4:30 PM 04/05 1630 AC 08 IV 0918 Gabapentin 600 MG Q8 03/24 1507 AC 04/06 PO 0630 Guaifenesin 600 MG Q12 03/24 1525 AC 04/06 PO 0926 Hydromorphone HCl 2 MG Q6P PRN 04/01 0815 04/06 PO 0759 Insulin Aspart 0 TIDAC/HS 03/24 1700 AC 04/06 SC 1304 Insulin Detemir 30 UNITS BID 03/24 2200 04/06 SC 0757 Ipratropium [place] 2.5 ML EVERY 4 HRS/AWAKE 03/25 0800 AC 04/06 INH 0851 Lisinopril 5 MG DAILY 03/24 1508 AC 04/05 PO 0922 Magnesium Chloride 64 MG BID 03/25 1000 AC 04/06 PO 0928 Naloxone HCl 0.4 MG Q 5 MINUTES X 3 DO.. 03/24 1530 AC IV Nicotine 21 MG DAILY 03/24 1508 AC 04/06 TOP 0926 Nystatin 1 NIKITA BID 04/04 1005 AC 04/05 TOP 2127 Oseltamivir Phosphate 75 MG BID 04/02 2200 AC 04/06 PO 04/06 2159 0929 Polyethylene Glycol 17 GM AT BEDTIME PRN 03/24 1515 AC 04/01 PO 2102 Potassium Chloride 10 MEQ DAILY 03/25 1000 AC 04/06 PO 0925 Warfarin Sodium 10 MG COUMADIN 1700 ONE 04/05 1700 DC 04/05 PO 04/05 1701 1640 Warfarin Sodium 1 MG .STK-MED ONE 04/05 1637 DC PO 04/05 1638 Warfarin Sodium 10 MG .STK-MED ONE 04/05 1637 DC PO 04/05 1638 Plan: Patients labs and vitals are stable. Will follow cardio and pulmonology recomendations. Will be discharged today with 2gm salt restriction and recommendation to see CHF clinic. Cardio: * Change Lasix to 60 mg by mouth every 12 hours * Continue Tamiflu * Discharge to home. * Follow up with Dr. Cosby in one week * Follow up with the [facility] for IV lasix as needed Pulmonology: - check CXR today, if any evidence of infiltrates, will need pseudomonas coverage, given lack of fever and no leukocytosis, likely colonization (CXR negative for signs of Pneumonia) - Continue to follow telemetry and cardiology input - I agree with continued steroid taper - Agree with Symbicort and TRC/nebs - Maintain oxygen saturation above 92% - Leg elevation - Tamiflu therapy has been ordered - Monitor ins and outs with diuresis - Monitor INR levels while on Coumadin Problem List: 1. Influenza B positive- oseltamavir 75 mg PO BID for 5 days (on 4th day). Treat in isolation 2. Wounds- continue with wound care protocol. 3. LE edema with chronic venous stasis- lasix 60 mg IV BID to be switched to 60 mg PO BID 4. Elevated troponins- continue to monitor labs, latest show downward trend 5. Supratherapeutic INR- dose coumadin 5 mg PO daily to target of 2-3 (today INR was 2.82) 6. Atrial fibrillation- continue aspirin and coumadin and dose for target INR of 2-3 7. COPD exacerbation- continue home medications. Continue oxygen therapy at 1.5L [place] during day and 2.0L at night. 8. Obesity- Educate patient on healthy diet strategies. 9. Diabetes- Diabetic Diet. continue to monitor glucose and continue home medication Diet: heart healthy diet DVT prophylaxis: Warfarin Code Status: full code
[2017-04-06] MEDS ORDERED: NYSTATIN15 G1 TOP (09:40)
[2017-04-06] MEDS ORDERED: SLOW-MAG71.5 MG PO (09:40)
[2017-04-06] MEDS ORDERED: GUAIFENESIN ER600 MG PO (09:40)
[2017-04-06] MEDS ORDERED: LASIX40 M1 PO (09:40)
[2017-04-06] MEDS ORDERED: TAMIFLU75 M1 PO (09:40)
--- NOTE | 2017-04-06 10:31 | PN- Cardiology ---
Subjective Subjective: Shortness of breath is improving. Lower extremity edema is improving. He continues to have a cough. No chest pain. No palpitations. No diaphoresis Objective Vital Signs and I&Os Vital Signs Date Time Temp Pulse Resp B/P B/P Pulse O2 O2 Flow FiO2 Mean Ox Delivery Rate 04/06 730 97.9 74 20 98/60 96 Nasal 1.5L Cannula 04/06 0028 98.3 77 20 98/60 95 04/06 0000 Nasal 1.5L Cannula 04/05 2121 79.0 118/72 04/05 1645 96 Nasal 1.5L Cannula 04/05 1600 Nasal 1.0L Cannula 04/05 1545 98.3 77 20 108/56 96 Nasal 1.5L Cannula Intake & Output 04/06 0000 04/05 1600 04/05 0000 Intake Total 400 420 800 250 490 Output Total 360 1000 1150 1350 800 950 Balance -360 -600 -730 -550 -550 -460 Intake, IV 10 10 Intake, Oral 400 420 800 240 480 Number 0 Bowel Movements Output, Urine 360 1000 1150 1350 800 950 Patient 318 lb 314 lb Weight Weight Chair scale Standing Scale Measurement Method Physical Exam: Gen: NAD HEENT: normal Lungs: Scattered rales, normal resp. effort Heart: RRR, S1, S2, no murmurs Abdomen: Soft, nontender, no masses Extremities: 2+ edema, dressings in place Neuro: Alert and oriented x 3, cranial nerves intact Current Medications: Current Medications Sig/Ann-Marie Start time Last Medication Dose Route Stop Time Status Admin Acetaminophen 650 MG Q4P PRN 04/03 1115 AC PO Amiodarone HCl 200 MG DAILY 03/24 1459 AC 04/05 PO 0922 Aspirin Buffered 81 MG DAILY 03/24 1459 AC 04/06 PO 0925 Atorvastatin Calcium 40 MG 1700 03/24 1700 AC 04/05 PO 1639 Budesonide/ 2 PUF BID 03/24 2200 AC 04/06 Formoterol Fumarate INH 0929 Carvedilol 25 MG BID 03/24 1501 AC 04/05 PO 2121 Cholecalciferol 1,000 IU DAILY 03/25 1000 AC 04/06 PO 0930 Cyanocobalamin 1,000 MCG DAILY 03/25 1000 AC 04/06 PO 0930 Docusate Sodium 100 MG BID PRN 03/24 1530 AC 05 PO 1020 Fenofibrate 145 MG DAILY 03/25 1000 AC 04/06 PO 0930 Furosemide 60 MG 7:30 AM, & 4:30 PM 04/05 1630 AC 04/06 IV 0918 Furosemide 60 MG 7:30 AM, & 4:30 PM 04/02 1630 UT 04/05 PO 0737 Gabapentin 600 MG Q8 03/24 1507 04/06 PO 0630 Guaifenesin 600 MG Q12 03/24 1525 04/06 PO 0926 Hydromorphone HCl 2 MG Q6P PRN 04/01 0815 04/06 PO 0759 Insulin Aspart 0 TIDAC/HS 03/24 1700 04/05 SC 1639 Insulin Detemir 30 UNITS BID 03/24 2200 04/06 SC 0757 Ipratropium [place] 2.5 ML EVERY 4 HRS/AWAKE 03/25 0800 AC 04/06 INH 0851 Lisinopril 5 MG DAILY 03/24 1508 04/05 PO 0922 Magnesium Chloride 64 MG BID 03/25 1000 AC 04/06 PO 0928 Naloxone HCl 0.4 MG Q 5 MINUTES X 3 DO.. 03/24 1530 AC IV Nicotine 21 MG DAILY 03/24 1508 04/06 TOP 0926 Nystatin 1 NIKITA BID 04/04 1005 04/05 TOP 2127 Oseltamivir Phosphate 75 MG BID 04/02 2200 04/06 PO 04/06 2159 0929 Polyethylene Glycol 17 GM AT BEDTIME PRN 03/24 1515 04/01 PO 2102 Potassium Chloride 10 MEQ DAILY 03/25 1000 04/06 PO 0925 Warfarin Sodium 10 MG COUMADIN 1700 ONE 04/05 1700 UT 04/05 PO 04/05 1701 1640 Warfarin Sodium 1 MG .STK-MED ONE 04/05 1637 DC PO 04/05 1638 Warfarin Sodium 10 MG .STK-MED ONE 04/05 1637 DC PO 04/05 1638 Results Last 48 Hrs of Labs/Mics: Laboratory Tests 04/06/17 0611: Anion Gap 10, Estimated GFR > 60, BUN/Creatinine Ratio 30.0 H, Magnesium 1.9, PT 29.3 H, INR 2.82 H, CBC w Diff NO MAN DIFF REQ, RBC 4.49 L, MCV 84.3, MCH 27.7, RDW 16.7 H, MPV 8.6, Gran % 69.7, Lymphocytes % 16.0 L, Monocytes % 6.6, Eosinophils % 7.4 H, Basophils % 0.3, Absolute Granulocytes 4.2, Absolute Lymphocytes 1.0 L, Absolute Monocytes 0.4, Absolute Eosinophils 0.5, Absolute Basophils 0, PUBS MCHC 32.9 L 04/05/17 0700: Anion Gap 10, Estimated GFR > 60, BUN/Creatinine Ratio 29.2 H, Magnesium 1.9, PT 20.3 H, INR 1.95 H Assessment/Plan Assessment/Plan Assessment: 1. Atrial fibrillation 2. Acute on chronic diastolic heart failure 3. Acute COPD exacerbation, improved 4. Supratherapeutic INR, resolved 5. Diabetes mellitus 6. Acute influenza infection Plan: * Change Lasix to 60 mg by mouth every 12 hours * Continue Tamiflu * Discharge to home. * Follow up with Dr. Cosby in one week * Follow up with the [facility] for IV lasix as needed Continue telemetry? No
--- NOTE | 2017-04-06 10:33 | PN- Pulmonary ---
Subjective HPI/Critical Care Issues: pt seen and examined 96% on 1.5LNC afebrile hemodynamically stable pseudomonas in sputum Objective Current Medications: Current Medications Sig/Ann-Marie Start time Last Medication Dose Route Stop Time Status Admin Acetaminophen 650 MG Q4P PRN 04/03 1115 AC PO Amiodarone HCl 200 MG DAILY 03/24 1459 AC 04/05 PO 0922 Aspirin Buffered 81 MG DAILY 03/24 1459 AC 04/06 PO 0925 Atorvastatin Calcium 40 MG 1700 03/24 1700 AC 04/05 PO 1639 Budesonide/ 2 PUF BID 03/24 2200 AC 04/06 Formoterol Fumarate INH 0929 Carvedilol 25 MG BID 03/24 1501 AC 04/05 PO 2121 Cholecalciferol 1,000 IU DAILY 03/25 1000 AC 04/06 PO 0930 Cyanocobalamin 1,000 MCG DAILY 03/25 1000 AC 04/06 PO 0930 Docusate Sodium 100 MG BID PRN 03/24 1530 AC 03/30 PO 1020 Fenofibrate 145 MG DAILY 03/25 1000 AC 04/06 PO 0930 Furosemide 60 MG 7:30 AM, & 4:30 PM 04/05 1630 AC 04/06 IV 0918 Furosemide 60 MG 7:30 AM, & 4:30 PM 04/02 1630 DC 04/05 PO 0737 Gabapentin 600 MG Q8 03/24 1507 AC 04/06 PO 0630 Guaifenesin 600 MG Q12 03/24 1525 AC 04/06 PO 0926 Hydromorphone HCl 2 MG Q6P PRN 04/01 0815 AC 04/06 PO 0759 Insulin Aspart 0 TIDAC/HS 03/24 1700 04/05 SC 1639 Insulin Detemir 30 UNITS BID 03/24 2200 04/06 SC 0757 Ipratropium [place] 2.5 ML EVERY 4 HRS/AWAKE 03/25 0800 AC 04/06 INH 0851 Lisinopril 5 MG DAILY 03/24 1508 AC 04/05 PO 0922 Magnesium Chloride 64 MG BID 03/25 1000 AC 04/06 PO 0928 Naloxone HCl 0.4 MG Q 5 MINUTES X 3 DO.. 03/24 1530 AC IV Nicotine 21 MG DAILY 03/24 1508 AC 04/06 TOP 0926 Nystatin 1 NIKITA BID 04/04 1005 05/07 TOP 2127 Oseltamivir Phosphate 75 MG BID 04/02 220 AC 04/06 PO 04/06 215 0929 Polyethylene Glycol 17 GM AT BEDTIME PRN 03/24 1515 AC 04/01 PO 210 Potassium Chloride 10 MEQ DAILY 03/25 1000 AC 04/06 PO 0925 Warfarin Sodium 10 MG COUMADIN 1700 ONE 04/05 1700 DC 04/05 PO 04/05 1701 1640 Warfarin Sodium 1 MG .STK-MED ONE 04/05 1637 DC PO 04/05 1638 Warfarin Sodium 10 MG .STK-MED ONE 04/05 1637 DC PO 04/05 1638 Vital Signs & I&O Last 24 Hrs of Vitals and I&O: Vital Signs Date Time Temp Pulse Resp B/P B/P Pulse O2 O2 Flow FiO2 Mean Ox Delivery Rate 04/06 1018 96 Nasal 1.5L Cannula 04/06 0730 97.9 74 20 98/60 96 Nasal 1.5L Cannula 04/06 0028 98.3 77 20 98/60 95 04/06 0000 Nasal 1.5L Cannula 04/05 2121 79.0 118/72 04/05 1645 96 Nasal 1.5L Cannula 04/05 1600 Nasal 1.0L Cannula 04/05 1545 98.3 77 20 108/56 96 Nasal 1.5L Cannula Intake & Output 04/06 1600 04/06 0800 04/06 0000 Intake Total 400 420 Output Total 360 1000 1150 Balance -360 -600 -730 Intake, Oral 400 420 Output, Urine 360 1000 1150 Patient 318 lb Weight Weight Chair scale Measurement Method Exam Other Physical Findings: Generally - Awake, alert Head and neck - normocephalic, atraumatic, EOMI grossly intact Cardiovascular - S1, S2, no murmurs, rubs or gallops Lungs -bilateral scattered rhonchi Abdomen - Bowel sounds positive, soft, non-tender Extremities -chronic venous changes with blisters and 2+ edema Results Last 24 Hrs of Lab Results: Laboratory Tests 04/06/17 0611: Anion Gap 10, Estimated GFR > 60, BUN/Creatinine Ratio 30.0 H, Magnesium 1.9, PT 29.3 H, INR 2.82 H, CBC w Diff NO MAN DIFF REQ, RBC 4.49 L, MCV 84.3, MCH 27.7, RDW 16.7 H, MPV 8.6, Gran % 69.7, Lymphocytes % 16.0 L, Monocytes % 6.6, Eosinophils % 7.4 H, Basophils % 0.3, Absolute Granulocytes 4.2, Absolute Lymphocytes 1.0 L, Absolute Monocytes 0.4, Absolute Eosinophils 0.5, Absolute Basophils 0, PUBS MCHC 32.9 L Impression/Plan Impression/Plan Impression/Plan: Impression 61-year-old man * Congestive heart failure with preserved ejection fraction and acute on chronic presentation * Troponin anemia likely secondary to demand ischemia which is improved * Exacerbation of COPD that has improved * Type B influenza * Chronic venous stasis * Atrial fibrillation * pseudomonas in sputum noted - afebrile, no leukocytosis, may represent colonization Plan - check CXR today, if any evidence of infiltrates, will need pseudomonas coverage, given lack of fever and no leukocytosis, likely colonization - Continue to follow telemetry and cardiology input - I agree with continued steroid taper - Agree with Symbicort and TRC/nebs - Maintain oxygen saturation above 92% - Leg elevation - Tamiflu therapy has been ordered - Monitor ins and outs with diuresis - Monitor INR levels while on Coumadin DVT prophylaxis at all times
[2017-04-06 10:42] VITALS: BP 98/60
--- NOTE | 2017-04-06 11:58 | RADIOLOGY REPORT ---
EXAMINATION: XR PORTABLE CHEST CLINICAL INFORMATION: Persistent dyspnea. Evaluate for exacerbation of congestive heart failure. COMPARISON: Chest CT of 03/31/2017, portable chest x-ray of 03/24/2017 TECHNIQUE: Portable frontal view of the chest was obtained. FINDINGS: No vascular congestive changes or focal consolidation are identified. There are stable atelectatic changes present at the right lung base. The cardiomediastinal contours are widened, unchanged. The bony structures are within normal limits. IMPRESSION: No evidence of cardiac decompensation radiographically. Stable right basilar atelectasis without evidence of pneumonia. No significant interval change.
[2017-04-06] MEDS ORDERED: PREDNISONE10 M2 PO (16:04)
== END 2017-04-06 16:20 | DRG 292 ==
LOC: DELPENDDIS → ERH 09:54 → 1NO 13:42 → ERHI 13:42 → ENRESERV 14:33 → 1NO 15:45 → ENPENDDIS 04-02 17:16 → 1NO 04-02 20:20 → ENPENDDIS 04-06 15:15 → 1NO 04-06 16:20
PROVIDERS: Dermatology; Emergency Medicine; Internal Medicine; Internal Medicine Nephrology; ADMIT Specialist
DX: I11.0 Hypertensive heart disease with heart failure (principal); Z68.41 Body mass index [BMI] 40.0-44.9, adult; E11.40 Type 2 diabetes mellitus with diabetic neuropathy, unspecified; I24.8 Other forms of acute ischemic heart disease; I27.2 Other secondary pulmonary hypertension; J44.1 Chronic obstructive pulmonary disease with (acute) exacerbation; L97.829 Non-pressure chronic ulcer of other part of left lower leg with unspecified severity; L97.819 Non-pressure chronic ulcer of other part of right lower leg with unspecified severity; I50.33 Acute on chronic diastolic (congestive) heart failure; E83.42 Hypomagnesemia; Z79.01 Long term (current) use of anticoagulants; E66.01 Morbid (severe) obesity due to excess calories; J10.1 Influenza due to other identified influenza virus with other respiratory manifestations; I48.2 Chronic atrial fibrillation; I25.10 Atherosclerotic heart disease of native coronary artery without angina pectoris; I25.2 Old myocardial infarction; I87.2 Venous insufficiency (chronic) (peripheral); E78.5 Hyperlipidemia, unspecified; G47.33 Obstructive sleep apnea (adult) (pediatric); Z79.4 Long term (current) use of insulin; Z86.718 Personal history of other venous thrombosis and embolism; Z87.891 Personal history of nicotine dependence; S51.012A Laceration without foreign body of left elbow, initial encounter; W19.XXXA Unspecified fall, initial encounter; Y92.009 Unspecified place in unspecified non-institutional (private) residence as the place of occurrence of the external cause
CPT/HCPCS: 1NP; 1NSP; 36415; 82436; 87040; 87070; 87071; 87804; 87804-59; 93005; 93010; 96374; 96375; 99291; J1170; J1940; J2920; J3490; J7512; J7608

== ENCOUNTER 2018-03-02 15:03 | Inpatient (IN) | payer OTHER ==
[~2018-03-02] VITALS: Ht 182.9 cm; Wt 142.9 kg
[~2018-03-02 15:03] MED LIST changes: +GUAIFENESIN ER600 MG PO; +NICODERM CQ1 EAC2 TOP; +NYSTATIN15 G1 TOP; +SLOW-MAG71.5 MG PO; +TAMIFLU75 M1 PO
--- NOTE | 2018-03-02 16:37 | ED DYSPNEA/ASTHMA COMPLAINT ---
History of Present Illness General Chief Complaint: Dyspnea (COPD, CHF, Other) Stated Complaint: SOB Source: patient, old records, [employer] Exam Limitations: no limitations Vital Signs & Intake/Output Vital Signs & Intake/Output Vital Signs Date Time Temp Pulse Resp B/P B/P Pulse O2 O2 Flow FiO2 Mean Ox Delivery Rate 03/09 0648 98.1 93 20 160/96 93 Room Air 03/09 0000 94 Nasal 2.0L Cannula 03/08 2246 97.8 96 16 152/80 94 Nasal Cannula 03/08 2200 103 152/80 03/08 1622 95 Nasal 2.0L Cannula 03/08 1400 97.3 80 20 130/78 94 Nasal 2.0L Cannula 03/08 0833 90 134/86 03/08 0833 90 134/86 03/08 0833 90 134/86 03/08 0800 97 Nasal 2.0L Cannula ED Intake and Output 03/09 0000 03/08 1200 Intake Total 1350 100 Output Total 5150 400 Balance -3800 -300 Intake, IV 250 Intake, Oral 1100 100 Output, Urine 5150 400 Patient 315 lb Weight Allergies Coded Allergies: NO KNOWN ALLERGIES (UNKNOWN 04/06/17) Reconcile Medications Amiodarone (Cordarone) 200 MG TABLET 1 TAB PO DAILY AFIB (Reported) Aspirin (Ecotrin*) 81 MG TABLET.DR 1 TAB PO DAILY HEART/BLOOD (Reported) Atorvastatin Calcium 40 MG TABLET 1 TAB PO DAILY CHOLESTEROL (Reported) Budesonide/Formoterol Fumarate (Symbicort 160-4.5 Mcg Inhaler) 10.2 GM HFA.AER.AD 2 PUF INH BID COPD Carvedilol 25 MG TABLET 1 TAB PO BID HEART (Reported) Cholecalciferol (Vitamin D3) (Vitamin D) 2,000 UNIT TABLET 1 TAB PO DAILY SUPPLEMENT (Reported) Cyanocobalamin (Vitamin B-12) (Vitamin B-12) 2,000 MCG TABLET 1 TAB PO DAILY SUPPLEMENT (Reported) Docusate Sodium (Colace) 100 MG CAPSULE 1 CAP PO BID PRN Constipation Fenofibrate 160 MG TABLET 1 TAB PO DAILY CHOLESTEROL (Reported) Furosemide (Lasix) 40 MG TABLET 1 TAB PO 7:30 AM, & 4:30 PM CHF Furosemide 40 MG TABLET 1.5 TAB PO BID CHF Gabapentin 600 MG TABLET 1 TAB PO TID NEUROPATHY (Reported) Guaifenesin (Guaifenesin ER) 600 MG TAB.ER.12H 600 MG PO BID PRODUCTIVE COUGH Insulin Aspart, Recombinant (Novolog Flexpen) 100 UNIT/1 ML INSULN.PEN 0 SC TIDAC/HS DIABETES BLOOD SUGAR BEFORE MEALS UNITS BEDTIME LESS THAN 80 INITIATE HYPOGLYCEMIA 80-150 16 UNITS 151-200 18 UNITS 201-250 20 UNITS 251-300 22 UNITS 4 UNITS 301-350 24 UNITS 6 UNITS 351-400 26 UNITS 8 UNITS 351-400 26 UNITS, CALL MD 10 UNITS, CALL Insulin Detemir (Levemir Flextouch) 100 UNIT/ML (3 ML) INSULN.PEN 30 UNITS SC BID DM (Reported) Levalbuterol HCl 1.25 MG/3 ML VIAL.NEB 1 INH PO Q4 BREATHING PROBLEMS ( Reported) Lisinopril (Prinivil) 5 MG TABLET 1 TAB PO DAILY HTN (Reported) Magnesium Chloride (Slow-Mag) 71.5 MG TABLET.DR 64 MG PO DAILY SUPPLEMENT Metformin HCl 850 MG TABLET 850 MG PO 0800,1700 diabetes Nystatin 100,000 UNIT/GRAM CREAM..G. 1 NIKITA TOP BID FUNGAL INFECTION Oxycodone HCl 10 MG TABLET 10 MG PO TID CHRONIC PAIN (Reported) Polyethylene Glycol 3350 (Miralax) 119 GM POWDER 17 GM PO AT BEDTIME PRN CONSTIPATION Potassium Chloride 10 MEQ CAPSULE.ER 1 CAP PO DAILY SUPPLEMENT (Reported) Warfarin Sodium (Coumadin) 10 MG TABLET 1 TAB PO SuMoTuThFrSa BLOOD THINNER ( Reported) Triage Note: PT WAS SEEN IN DR. VENCES OFFICE 2 WEEKS AGO AND WAS TOLD THEN THAT HE NEEDED TO GO TO ED. PT STATES HE IS ON 3L NC. PT STATES HE IS UNABLE TO AMBULATE MORE THAT A COUPLE OF FEET BEFORE HE GETS WINDED. PT STATES HE WAS SEEN IN THE WOUND CLINIC AND DR. TORRES SENT HIM TO ED FOR EVAL. DR. FAIRCHILD SPOKE WITH DR. VIVAR ABOUT HIM. PT STATES HE IS RETAINING FLUID. Triage Nurses Notes Reviewed? yes HPI: Patient presents for evaluation of dyspnea worsening over the past 10 days. In addition the patient is been suffering lower extremity edema. He also complains of a peripheral neuropathy secondary to diabetes. Regarding the peripheral neuropathy, the pain is very severe (9/10) and feels like a pins and needles. Although patient feels a certain amount of shortness of breath all the time, his dyspnea worsens with any exertion. Patient has been compliant with his current medications including inhalers for his history of COPD. It addition the patient has been coughing up greenish phlegm for "a while". He has been treated with 2 rounds of antibiotics for this without improvement. Patient went to the wound care center today for evaluation of a leg wound and was told to go to the emergency department for evaluation. Past History Travel History Traveled to [place] past 21 day No Medical History Any Pertinent Medical History? 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: NONE History of MRSA: No History of VRE: No History of CDIFF: No Surgical History Surgical History: cholecystectomy, knee replacement (left knee), status post aborted maze procedure b/l LE venous sclerotherapy Psychosocial History Who do you live with Family Services at Home Oxygen What is your primary language Egyptian Tobacco Use: Quit >30 days ago ETOH Use: denies use Illicit Drug Use: denies illicit drug use Family History Family History, If Any: FATHER FH: heart attack FH: HTN (hypertension) MOTHER FH: heart attack FH: HTN (hypertension) FHx: stroke SISTER FH: breast cancer FH: CHF (congestive heart failure) Hx Contributory? No Review of Systems Review of Systems Constitutional: Reports: no symptoms. EENTM: Reports: no symptoms. Respiratory: Reports: see HPI. Cardiovascular: Reports: no symptoms. GI: Reports: no symptoms. Genitourinary: Reports: no symptoms. Musculoskeletal: Reports: no symptoms. Skin: Reports: no symptoms. Neurological/Psychological: Reports: see HPI. Hematologic/Endocrine: Reports: no symptoms. Immunologic/Allergic: Reports: no symptoms. All Other Systems: Reviewed and Negative Physical Exam Physical Exam Respiratory: SEE BELOW Comments: Gen.: Well-nourished, well-developed, no acute respiratory distress. Head: Normocephalic, atraumatic. Eyes: Normal inspection bilaterally Ears: Normal inspection bilaterally Nose: Normal inspection Throat/mouth : Moist mucosa Neck: Supple, full range of motion, no goiter Heart: IRRegular rate and rhythm, no murmurs rubs or gallops Lungs: Clear to auscultation bilaterally with diminished air entry bilaterally Chest: Nontender Back: Normal range of motion Abdomen: Soft, nontender, nondistended, normal bowel sounds Extremities: Normal range of motion grossly, equal radial pulses, no cyanosis, 3 + bilateral pitting edema with chronic skin changes Neurologic: Cranial nerves grossly intact, speech is clear Skin: warm and dry Psychiatric: Calm, cooperative, no apparent delusions or hallucinations Core Measures ACS in differential dx? No CVA/TIA Diagnosis No Sepsis Present: No Sepsis Focused Exam Completed? No Progress Differential Diagnosis: asthma, bronchitis, CHF, pneumonia, pneumothorax, unstable angina Plan of Care: Orders Procedure Date/time Status PROTHROMBIN TIME 03/09 0800 Active Anticipated Discharge 03/09 UNK Active PHYSICIAN CONSULT 03/08 UNK Active AEROSOL CHG 03/07 UNK Complete OXYGEN 03/07 UNK Complete OXYGEN DAILY CHARGE 03/07 UNK Complete AEROSOL CHG 03/06 UNK Complete OXYGEN 03/06 UNK Complete OXYGEN DAILY CHARGE 03/06 UNK Complete AEROSOL CHG 03/05 UNK Complete OXYGEN 03/05 UNK Complete OXYGEN DAILY CHARGE 03/05 UNK Complete Current Medications Sig/Ann-Marie Start time Last Medication Dose Stop Time Status Admin Furosemide 60 MG 7:30 AM, & 4:30 PM 03/08 1630 AC 03/09 (Lasix) 0627 Prednisone 40 MG DAILY 03/08 1000 AC 03/08 1259 Oxycodone/ 2 TAB Q8P PRN 03/07 0600 AC 03/09 Acetaminophen 0015 (Percocet) Azithromycin 500 MG DAILY 03/05 1500 AC 03/08 (Zithromax) 0834 Dextrose/Water 250 ML (D5W) Atorvastatin Calcium 40 MG 1700 03/03 1700 AC 03/08 (Lipitor) 1644 Amiodarone HCl 200 MG DAILY 03/03 1000 AC 03/08 (Cordarone) 0833 Aspirin Buffered 81 MG DAILY 03/03 1000 AC 03/08 (Ecotrin) 0833 Lisinopril 5 MG DAILY 03/03 1000 AC 03/08 (Prinivil) 0833 Potassium Chloride 10 MEQ DAILY 03/03 1000 AC 03/08 (K-Dur) 0832 Ipratropium [place] 2.5 ML EVERY 4 HRS/AWAKE 03/03 0830 AC 03/08 (Atrovent) 2020 Insulin Aspart 0 TIDAC 03/03 0800 AC 03/08 (NovoLOG) 173 Carvedilol 25 MG BID 03/02 223 AC 03/08 (Coreg) 220 Gabapentin 600 MG Q8 03/02 2230 AC 03/09 (Neurontin) 0627 Budesonide/ 2 PUF BID 03/02 220 AC 03/08 Formoterol Fumarate 2158 (Symbicort) Docusate Sodium 100 MG BID PRN 03/02 2200 AC (Colace) Guaifenesin 600 MG BID 03/02 2200 AC 03/08 (Mucinex) 215 Insulin Detemir 20 UNITS BID 03/02 2200 AC 03/08 (Levemir) 220 Polyethylene Glycol 17 GM AT BEDTIME PRN 03/02 2200 AC 03/07 (Miralax) 175 Diagnostic Imaging: Discussed w/RAD: Radiology Read. CXR Impression: PATIENT: LYNETTE SMITH PRESENT AGE: 62 PATIENT ACCOUNT NO: [id number] : 55 LOCATION: [facility] ORDERING PHYSICIAN: Ye Vivar MD SERVICE DATE: 03/02/18 EXAM TYPE: RAD - XRY-PORTABLE CHEST XRAY EXAMINATION: XR PORTABLE CHEST CLINICAL INFORMATION: Dyspnea and lower extremity edema. COMPARISON: CXR from 04/06/2017 TECHNIQUE: Portable frontal view of the chest was obtained. FINDINGS: Large body habitus. Costophrenic sulci are partially excluded from the [id number]. No acute findings in the chest compared to the prior radiograph. No acute consolidation, edema or overt pleural effusion. Mild cardiomegaly. The visualized bones are intact. IMPRESSION: 1. Mild cardiomegaly without acute pulmonary edema. 2. Lung bases are suboptimally visualized/evaluated on this portable chest radiograph. DICTATED BY: Mateo Kan MD DATE/TIME DICTATED:03/02/181727 RN ENT:SONDRA DATE/TIME TRANSCRIBED:03/02/181727 CONFIDENTIAL, DO NOT COPY WITHOUT APPROPRIATE AUTHORIZATION. <Electronically signed in Other Vendor System> SIGNED BY: Mateo Kan MD 03/02/18 173 Initial ED EKG: AFIB (RATE 89), nonspecific ST T wave chg Prior EKG: unchanged Departure Departure Disposition: STILL A PATIENT Condition: Stable Clinical Impression Primary Impression: Right-sided heart failure Qualifiers: Heart failure chronicity: acute Qualified Code: I50.811 - Acute right heart failure Secondary Impressions: Cardiomegaly, Dyspnea on exertion, Peripheral edema Referrals: Patient Has No Primary Care Dr (PCP/Family) Departure Forms: Customer Survey General Discharge Information Prescriptions: Current Visit Scripts Furosemide 1.5 TAB PO BID #30 TAB Admission Note Spoke With: Sabino Cartwright MD Documentation of Exam: Documentation of any treatments & extenuating circumstances including Concerns Regarding Discharge (functional status, medication knowledge or non-compliance, living conditions, etc.) that warrant an admission rather than observation: Patient presents for evaluation of worsening dyspnea particularly with exertion along with chronic bilateral lower extremity edema and chronic wounds. The patient's overall functional capacity has deteriorated over the past few weeks despite outpatient treatment and I feel he now requires hospitalization for a more aggressive management of his lower extremity edema and chronic wounds. Patient should be placed on telemetry to monitor for any cardiac dysrhythmias given his cardiomegaly on chest x-ray. Cardiology consultation should be obtained for management of the patient's elevated blood pressure and oversee diuresis. Patient should be evaluated by the wound care center regarding his chronic wounds and ongoing treatment. Patient's current medications should be reviewed and optimized. Intake and output should be recorded along with daily weights to assure negative fluid balance and weight loss. Electrolytes and renal function should be monitored for any changes during diuresis and treated accordingly. Patient's current diet should be reviewed and adjusted accordingly (for example low-sodium diet). I feel this patient will require a multiple day hospitalization. Critical Care Note Critical Care Note Critical Care Time: 30-74 min ED Attending Observation Initial Observation Note: I have seen and personally examined SARAHLYNETTE Emani on 03/02/18 at 1640. I agree with the current emergency department documentation. The disposition (admission or discharge) is uncertain at this time, he needs a period of observation for the following reason(s): The ED Nurse caring for this patient has been personally informed as to what the patient is being observed for.
[2018-03-02 17:10] LABS: ABSOLUTE BASOPHIL COUNT 0 /CUMM (0.0-0.2); ABSOLUTE EOSINOPHIL COUNT 0.8 /CUMM (0.0-0.7); ABSOLUTE GRANULOCYTE CT 4.6 /CUMM (1.4-6.5); ABSOLUTE MONOCYTE COUNT 0.6 /CUMM (0.10-0.60); BASOPHIL % 0.3 % (0.0-2.0); EOSINOPHIL % 11.5 % (0-5); GRANULOCYTE % 65.2 % (42.2-75.2); HEMATOCRIT 40.8 % (42-52); MEAN CORPUSCULAR HGB 27.3 PG (27.0-31.0); MEAN CORPUSCULAR VOLUME 85.3 FL (80.0-94.0); MEAN PLATELET VOLUME 8.7 FL (7.4-10.4); PLATELET COUNT 237 /CUMM (130-400); RBC DISTRIBUTION WIDTH 16.4 % (11.5-14.5); RED BLOOD CELL CT 4.78 /CUMM (4.70-6.10); WHITE BLOOD CELL COUNT 7.1 /CUMM (4.8-10.8)
--- NOTE | 2018-03-02 17:35 | RADIOLOGY REPORT ---
EXAMINATION: XR PORTABLE CHEST CLINICAL INFORMATION: Dyspnea and lower extremity edema. COMPARISON: CXR from 04/06/2017 TECHNIQUE: Portable frontal view of the chest was obtained. FINDINGS: Large body habitus. Costophrenic sulci are partially excluded from the [id number]. No acute findings in the chest compared to the prior radiograph. No acute consolidation, edema or overt pleural effusion. Mild cardiomegaly. The visualized bones are intact. IMPRESSION: 1. Mild cardiomegaly without acute pulmonary edema. 2. Lung bases are suboptimally visualized/evaluated on this portable chest radiograph.
--- NOTE | 2018-03-02 19:26 | Cons- Cardiology ---
General Information and HPI Consulting Request Date of Consult: 03/02/18 Requested By: Sabino Cartwright MD Reason for Consult: worsening dyspnea; COPD exacerbation; acute on chronic heart failure; worsening lower extremity edema Source of Information: patient, old records Exam Limitations: no limitations History of Present Illness: the patient is a 62-year-old male who is well-known to me. He has an extensive past medical history as noted below. The patient has been seen by me in the office on a biweekly basis over the last several months in the hopes of avoiding hospital admission. However, over the last month or so, the patient has noted worsening exertional dyspnea with episodes of exertional hypoxia. He has also had significant cough with production of thick greenish sputum. In addition, recently, his lower extremity edema which had been well controlled has worsened moderately as well. The patient denies any other cardiac symptoms. He has had no fevers or chills. of note, the patient has had recent issues with running out of his inhalers. 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 They were recently refilled however. the patient has had 2 courses of oral antibiotics, both for lower extremity cellulitis and for bronchitis. Allergies/Medications Allergies: Coded Allergies: NO KNOWN ALLERGIES (UNKNOWN 04/06/17) Home Med List: Amiodarone (Cordarone) 200 MG TABLET 1 TAB PO DAILY AFIB (Reported) Aspirin (Ecotrin*) 81 MG TABLET.DR 1 TAB PO DAILY HEART/BLOOD (Reported) Atorvastatin Calcium 40 MG TABLET 1 TAB PO DAILY CHOLESTEROL (Reported) Budesonide/Formoterol Fumarate (Symbicort 160-4.5 Mcg Inhaler) 10.2 GM HFA.AER.AD 2 PUF INH BID COPD Carvedilol 25 MG TABLET 1 TAB PO BID HEART (Reported) Cholecalciferol (Vitamin D3) (Vitamin D) 2,000 UNIT TABLET 1 TAB PO DAILY SUPPLEMENT (Reported) Cyanocobalamin (Vitamin B-12) (Vitamin B-12) 2,000 MCG TABLET 1 TAB PO DAILY SUPPLEMENT (Reported) Docusate Sodium (Colace) 100 MG CAPSULE 1 CAP PO BID PRN Constipation Fenofibrate 160 MG TABLET 1 TAB PO DAILY CHOLESTEROL (Reported) Furosemide (Lasix) 40 MG TABLET 1 TAB PO 7:30 AM, & 4:30 PM CHF Gabapentin 600 MG TABLET 1 TAB PO TID NEUROPATHY (Reported) Guaifenesin (Guaifenesin ER) 600 MG TAB.ER.12H 600 MG PO BID PRODUCTIVE COUGH Insulin Aspart, Recombinant (Novolog Flexpen) 100 UNIT/1 ML INSULN.PEN 0 SC TIDAC/HS DIABETES BLOOD SUGAR BEFORE MEALS UNITS BEDTIME LESS THAN 80 INITIATE HYPOGLYCEMIA 80-150 16 UNITS 151-200 18 UNITS 201-250 20 UNITS 251-300 22 UNITS 4 UNITS 301-350 24 UNITS 6 UNITS 351-400 26 UNITS 8 UNITS 351-400 26 UNITS, CALL MD 10 UNITS, CALL Insulin Detemir (Levemir Flextouch) 100 UNIT/ML (3 ML) INSULN.PEN 30 UNITS SC BID DM (Reported) Levalbuterol HCl 1.25 MG/3 ML VIAL.NEB 1 INH PO Q4 BREATHING PROBLEMS ( Reported) Lisinopril (Prinivil) 5 MG TABLET 1 TAB PO DAILY HTN (Reported) Magnesium Chloride (Slow-Mag) 71.5 MG TABLET.DR 64 MG PO DAILY SUPPLEMENT Metformin HCl 850 MG TABLET 850 MG PO 0800,1700 diabetes Nicotine (Nicoderm Cq) 21 MG/24 HOUR PATCH.TD24 1 PAT TOP DAILY SMOKING ( Reported) Nystatin 100,000 UNIT/GRAM CREAM..G. 1 NIKITA TOP BID FUNGAL INFECTION Oseltamivir Phosphate (Tamiflu) 75 MG CAPSULE 75 MG PO BID INFLUENZA Oxycodone HCl 10 MG TABLET 10 MG PO TID CHRONIC PAIN (Reported) Polyethylene Glycol 3350 (Miralax) 119 GM POWDER 17 GM PO AT BEDTIME PRN CONSTIPATION Potassium Chloride 10 MEQ CAPSULE.ER 1 CAP PO DAILY SUPPLEMENT (Reported) Prednisone 10 MG TABLET 1 TAB PO DAILY WHEEZING, COPD Warfarin Sodium (Coumadin) 10 MG TABLET 1 TAB PO SuMoTuThFrSa BLOOD THINNER ( Reported) Current Medications: Current Medications Sig/Ann-Marie Start time Last Medication Dose Route Stop Time Status Admin Acetaminophen 0 .STK-MED ONE 03/02 173 DC IV Acetaminophen 1,000 MG ONCE ONE 03/02 173 DC 03/02 N/A 1 UNIT IV 03/02 1744 1735 Morphine Sulfate 0 .STK-MED ONE 03/02 173 DC .ROUTE Morphine Sulfate 6 MG ONCE ONE 03/02 1730 DC 03/02 IV 03/02 1731 1735 Past History Travel History Traveled to [place] past 21 day No Medical History Neurological: NONE EENT: NONE Cardiovascular: AFIB, CAD, CHF, chronic venous insuff, hypertension, hyperlipidemia, myocardial infarction, STENT 2003 Respiratory: bronchitis, COPD, emphysema, obstructive sleep apnea, 02 1.5 L Gastrointestinal: NONE Hepatic: NONE Renal: NONE Musculoskeletal: degen joint disease Psychiatric: NONE Endocrine: diabetes Blood Disorders: DVT LLE Cancer(s): NONE 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 spouse Services at Home: Oxygen Primary Language: Romanian ETOH Use: denies use Illicit Drug Use: denies illicit drug use Living Will? no Power of Director Of Retail Merchandising/HCP? no Functional Ability ADLs Independent: dressing, eating, toileting, bathing. Ambulation: walker (also uses cane sometimes) IADLs Independent: shopping, housework, finances, food prep, telephone, transportation , medication admin. Exam & Diagnostic Data Vital Signs and I&O Vital Signs Date Time Temp Pulse Resp B/P B/P Pulse O2 O2 Flow FiO2 Mean Ox Delivery Rate 03/02 1735 84 22 184/102 96 Nasal 2.0L Cannula 03/02 1537 Nasal 2.0L Cannula 03/02 1524 97.3 81 22 154/83 94 Nasal 3.0L Cannula Intake & Output 03/02 1600 03/02 0800 03/02 0000 03/01 1600 03/01 0800 03/01 0000 Intake Total 0 Output Total Balance 0 Intake, Oral 0 Patient 315 lb Weight Weight Reported by Patient Measurement Method Labs/[place] Results: Laboratory Tests 03/02 1606 Chemistry Sodium (137 - 145 mmol/L) 140 Potassium (3.5 - 5.1 mmol/L) 4.2 Chloride (98 - 107 mmol/L) 97 L Carbon Dioxide (22 - 30 mmol/L) 33 H Anion Gap (5 - 16) 10 BUN (9 - 20 mg/dL) 26 H Creatinine (0.7 - 1.2 mg/dL) 0.8 Estimated GFR (>60 ml/min) > 60 BUN/Creatinine Ratio (7 - 25 %) 32.5 H Glucose (65 - 99 mg/dL) 92 Calcium (8.4 - 10.2 mg/dL) 9.6 Magnesium (1.6 - 2.3 mg/dL) 1.6 Troponin I (<0.11 ng/ml) 0.03 [id number]-[id number] Pept (<125 pg/mL) 1240 H Hematology CBC w Diff NO MAN DIFF REQ WBC (4.8 - 10.8 /CUMM) 7.1 RBC (4.70 - 6.10 /CUMM) 4.78 Hgb (14.0 - 18.0 G/DL) 13.1 L Hct (42 - 52 %) 40.8 L MCV (80.0 - 94.0 FL) 85.3 MCH (27.0 - 31.0 PG) 27.3 MCHC (33.0 - 37.0 G/DL) 32.0 L RDW (11.5 - 14.5 %) 16.4 H Plt Count (130 - 400 /CUMM) 237 MPV (7.4 - 10.4 FL) 8.7 Gran % (42.2 - 75.2 %) 65.2 Lymphocytes % (20.5 - 51.1 %) 14.7 L Monocytes % (1.7 - 9.3 %) 8.3 Eosinophils % (0 - 5 %) 11.5 H Basophils % (0.0 - 2.0 %) 0.3 Absolute Granulocytes (1.4 - 6.5 /CUMM) 4.6 Absolute Lymphocytes (1.2 - 3.4 /CUMM) 1.0 L Absolute Monocytes (0.10 - 0.60 /CUMM) 0.6 Absolute Eosinophils (0.0 - 0.7 /CUMM) 0.8 Absolute Basophils (0.0 - 0.2 /CUMM) 0 Diagnostic Data CXR Results FINDINGS: Large body habitus. Costophrenic sulci are partially excluded from the [id number]. No acute findings in the chest compared to the prior radiograph. No acute consolidation, edema or overt pleural effusion. Mild cardiomegaly. The visualized bones are intact. IMPRESSION: 1. Mild cardiomegaly without acute pulmonary edema. 2. Lung bases are suboptimally visualized/evaluated on this portable chest radiograph. Assessment/Plan Assessment/Plan assessment: 1. Worsening shortness of breath and cough, likely multifactorial 2. Exacerbation of underlying COPD 3. Acute on chronic HFpEF 4. Worsening lower extremity edema with increased erythema and weeping left leg. 5.history of coronary artery disease 6. Bilateral lower extremity venous insufficiency with edema and stasis changes 7. Diabetes 8. History of hypertension 9. Sleep apnea Recommendations: -Admit the patient to telemetry monitored floor -Diuresis with IV Lasix and close monitoring of intake, outputs, and daily weights -Check troponin 2 -Follow-up ECG in the morning -Follow-up echocardiogram to reassess left ventricular function and right ventricular systolic pressure -Continue other medications of possible -Baseline pulmonary consult -Continue intensive respiratory care and nocturnal CPAP Consult Acknowledgment - Thank you for your consult request.
[2018-03-02 21:06] VITALS: BP 138/78
--- NOTE | 2018-03-02 21:19 | History & Physical ---
Asa Rodriguez MD 03/02/182117: General Information and [facility] MD Statement: I have seen and personally examined LYNETTE SMITH and documented this H&P. The patient is a 62 year old M who presented with a patient stated chief complaint of exertional dyspnea. Source of Information: patient, old records Exam Limitations: no limitations History of Present Illness: 62 year old male with past medical history significant for CAD, WI s/p stent, HFpEF, COPD on 3L oxygen, TOMASZ noncompliant with CPAP, atrial fibrillation, HTN, DM, and chronic venous insufficiency presents with acute on chronic worsening exertional dyspnea and worsening lower extremity edema and wounds with purulent drainage. The patient is seen by Dr. Cosby in the office frequently for his cardiac history and heart failure. He is often encouraged but reluctant to be evaluated in the hospital despite his worsening symptoms. Despite aggressive management as an outpatient, his dyspnea had progressed to the point he is unable to take only a few steps without extreme respiratory distress and tachypnea. He was prescribed lasix and metolazone as an outpatient but I suspect there are issues with compliance. He reported not taking both his carvedilol and furosemide as prescribed, only once daily, instead of twice. He states he has been doing this for a long time and that Dr. Cosby is not aware. He has chronic cough for several months with production of dark green mucous that he suspects is coming from chest congestion that he often wakes up with large amount of productive cough, he has grown pseudomonas in previous sputum cultures. This had been recently treated with Augmentin as an outpatient without improvement in his symptoms. On review of systems, he denied any fevers , chills, chest pain, abdominal pain, nausea, vomiting, diarrhea, or dysuria. He recently made an outpatient appointment for wound care because his right lower extremity had purulent and foul smell drainage. He was seen by both Dr. Zhu and Dr. Hutchins in the wound care center. His wound was cleaned and an Unna boot was placed on the right lower extremity that is not supposed to be removed for two weeks. He was then advised to go to the emergency department and admitted to telemetry for heart failure exacerbation. Allergies/Medications Allergies: Coded Allergies: NO KNOWN ALLERGIES (UNKNOWN 04/06/17) Home Med list Amiodarone (Cordarone) 200 MG TABLET 1 TAB PO DAILY AFIB (Reported) Aspirin (Ecotrin*) 81 MG TABLET.DR 1 TAB PO DAILY HEART/BLOOD (Reported) Atorvastatin Calcium 40 MG TABLET 1 TAB PO DAILY CHOLESTEROL (Reported) Budesonide/Formoterol Fumarate (Symbicort 160-4.5 Mcg Inhaler) 10.2 GM HFA.AER.AD 2 PUF INH BID COPD Carvedilol 25 MG TABLET 1 TAB PO BID HEART (Reported) Cholecalciferol (Vitamin D3) (Vitamin D) 2,000 UNIT TABLET 1 TAB PO DAILY SUPPLEMENT (Reported) Cyanocobalamin (Vitamin B-12) (Vitamin B-12) 2,000 MCG TABLET 1 TAB PO DAILY SUPPLEMENT (Reported) Docusate Sodium (Colace) 100 MG CAPSULE 1 CAP PO BID PRN Constipation Fenofibrate 160 MG TABLET 1 TAB PO DAILY CHOLESTEROL (Reported) Furosemide (Lasix) 40 MG TABLET 1 TAB PO 7:30 AM, & 4:30 PM CHF Gabapentin 600 MG TABLET 1 TAB PO TID NEUROPATHY (Reported) Guaifenesin (Guaifenesin ER) 600 MG TAB.ER.12H 600 MG PO BID PRODUCTIVE COUGH Insulin Aspart, Recombinant (Novolog Flexpen) 100 UNIT/1 ML INSULN.PEN 0 SC TIDAC/HS DIABETES BLOOD SUGAR BEFORE MEALS UNITS BEDTIME LESS THAN 80 INITIATE HYPOGLYCEMIA 80-150 16 UNITS 151-200 18 UNITS 201-250 20 UNITS 251-300 22 UNITS 4 UNITS 301-350 24 UNITS 6 UNITS 351-400 26 UNITS 8 UNITS 351-400 26 UNITS, CALL 10 UNITS, CALL Insulin Detemir (Levemir Flextouch) 100 UNIT/ML (3 ML) INSULN.PEN 30 UNITS SC BID DM (Reported) Levalbuterol HCl 1.25 MG/3 ML VIAL.NEB 1 INH PO Q4 BREATHING PROBLEMS ( Reported) Lisinopril (Prinivil) 5 MG TABLET 1 TAB PO DAILY HTN (Reported) Magnesium Chloride (Slow-Mag) 71.5 MG TABLET.DR 64 MG PO DAILY SUPPLEMENT Metformin HCl 850 MG TABLET 850 MG PO 0800,1700 diabetes Nystatin 100,000 UNIT/GRAM CREAM..G. 1 NIKITA TOP BID FUNGAL INFECTION Oseltamivir Phosphate (Tamiflu) 75 MG CAPSULE 75 MG PO BID INFLUENZA Oxycodone HCl 10 MG TABLET 10 MG PO TID CHRONIC PAIN (Reported) Polyethylene Glycol 3350 (Miralax) 119 GM POWDER 17 GM PO AT BEDTIME PRN CONSTIPATION Potassium Chloride 10 MEQ CAPSULE.ER 1 CAP PO DAILY SUPPLEMENT (Reported) Prednisone 10 MG TABLET 1 TAB PO DAILY WHEEZING, COPD Warfarin Sodium (Coumadin) 10 MG TABLET 1 TAB PO SuMoTuThFrSa BLOOD THINNER ( Reported) Compliance With Home Meds: FAIR Past History Travel History Traveled to [place] past 21 day No Medical History Neurological: NONE EENT: NONE Cardiovascular: AFIB, CAD, CHF, chronic venous insuff, hypertension, hyperlipidemia, myocardial infarction, STENT 2003 Respiratory: bronchitis, COPD, emphysema, obstructive sleep apnea, 02 1.5 L Gastrointestinal: NONE Hepatic: NONE Renal: NONE Musculoskeletal: degen joint disease Psychiatric: NONE Endocrine: diabetes Blood Disorders: DVT LLE Cancer(s): NONE 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 spouse Services at Home: Oxygen Primary Language: [place] Citizen ETOH Use: denies use Illicit Drug Use: denies illicit drug use Living Will? no Power of Finding Fastener/HCP? no Functional Ability ADLs Independent: dressing, eating, toileting, bathing. Ambulation: walker (also uses cane sometimes) IADLs Independent: shopping, housework, finances, food prep, telephone, transportation , medication admin. Review of Systems Review of Systems Constitutional: Denies: chills, diaphoresis, fever. EENTM: Reports: no symptoms. Cardiovascular: Reports: edema, peripheral edema. Denies: chest pain, palpitations. Respiratory: Reports: cough, short of breath, sputum production, wheezing. GI: Denies: abdominal pain, constipation, diarrhea, melena, nausea, vomiting. Genitourinary: Reports: no symptoms. Musculoskeletal: Reports: no symptoms. Skin: Reports: no symptoms. Neurological/Psychological: Reports: no symptoms. Hematologic/Endocrine: Reports: no symptoms. Immunologic/Allergic: Reports: no symptoms. All Other Systems: Reviewed and Negative Exam & Diagnostic Data Last 24 Hrs of Vital Signs/I&O Vital Signs Date Time Temp Pulse Resp B/P B/P Pulse O2 O2 Flow FiO2 Mean Ox Delivery Rate 03/02 2252 95 Nasal 2.0L Cannula 03/026 97.6 71 18 138/78 93 Nasal 2.0L Cannula 03/02 1946 97.4 97 20 144/86 95 Nasal 3.0L Cannula 03/02 1735 84 22 184/102 96 Nasal 2.0L Cannula 03/02 1537 Nasal 2.0L Cannula 03/02 1524 97.3 81 22 154/83 94 Nasal 3.0L Cannula Intake & Output 03/02 1600 03/02 0800 03/02 0000 Intake Total 0 Output Total Balance 0 Intake, Oral 0 Patient 142.882 kg Weight Weight Reported by Patient Measurement Method Physical Exam General Appearance Alert, Oriented X3, Cooperative, Moderate Distress, tachypneic, short of breathing with repositioning and normal speech, obese Skin LE chronic venous insufficiency changes Neck Supple, JVD difficult to assess Cardiovascular Regular Rate, Normal S1, Normal S2, No Murmurs Lungs crackles to bilateral lower lung wheeler, with expiratory wheezing diffusely Abdomen Normal Bowel Sounds, Soft, No Tenderness, No Masses Extremities No Clubbing, No Cyanosis, Normal Pulses, 2+ bilateral pitting edema, RLE unna boot with reported lateral surface purulent drainage Last 24 Hrs of Labs/[place]: Laboratory Tests 03/02/18 2230: Troponin I 0.03 03/02/18 1606: Anion Gap 10, Estimated GFR > 60, BUN/Creatinine Ratio 32.5 H, Glucose 92, Calcium 9.6, Magnesium 1.6, Troponin I 0.03, Xcm-X-[id number] Pept 1240 H, CBC w Diff NO MAN DIFF REQ, RBC 4.78, MCV 85.3, MCH 27.3, MCHC 32.0 L, RDW 16.4 H, MPV 8.7, Gran % 65.2, Lymphocytes % 14.7 L, Monocytes % 8.3, Eosinophils % 11.5 H, Basophils % 0.3, Absolute Granulocytes 4.6, Absolute Lymphocytes 1.0 L, Absolute Monocytes 0.6, Absolute Eosinophils 0.8, Absolute Basophils 0 Microbiology 03/02 2150 LOWER RESP: Respiratory Culture - ORD 03/02 2150 LOWER RESP: Gram Stain - ORD Diagnostic Data CXR Results FINDINGS: Large body habitus. Costophrenic sulci are partially excluded from the [id number]. No acute findings in the chest compared to the prior radiograph. No acute consolidation, edema or overt pleural effusion. Mild cardiomegaly. The visualized bones are intact. IMPRESSION: 1. Mild cardiomegaly without acute pulmonary edema. 2. Lung bases are suboptimally visualized/evaluated on this portable chest radiograph. Other Results echo 01/16 Left ventricular wall thickness mildly increased. Normal left ventricular ejection fraction estimated at 55-60%. Assessment/Plan Assessment: 62 year old male with past medical history significant for CAD, WI s/p stent, HFpEF, COPD on 3L oxygen, TOMASZ noncompliant with CPAP, atrial fibrillation, HTN, DM, and chronic venous insufficiency presents with acute on chronic worsening exertional dyspnea and worsening lower extremity edema and wounds with purulent drainage. Exertional dyspnea: Secondary to acute exacerbation of diastolic heart failure HFpEF: Admit to telemetry and monitor for arrhythmia Cardiology consultation Check serial troponins and EKGs to evaluate for myocardial ischemia Check echocardiogram 40mg IV lasix x 1, will need further diuresis per cardiology proBNP elevated although chest x-ray not suggestive of brisa pulmonary edema May have component of ILD with crackles out of proportion to imaging on chest x -ray PO PPI Check daily weight and strict I/Os COPD: TRC evaluation supplemental oxygen setup Pulmology consultation Continue mucinex TOMASZ noncompliant with CPAP Continue nebulized albuterol and ipatropium, spiriva and symbicort Sputum culture Mucinex for productive cough DM: Hold oral hypoglycemics Accuchecks TIDAC/HS Novolog 30 units BID at home reduce to 20mg BID for now Check hemoglobin a1c Diabetic diet Novolog sliding scale insulin coverage Continue gabapentin 600mg TID for neuropathic pain CAD: Continue aspirin, statin, beta hany, ACEi Atrial fibrillation: Continue carvedilol and amiodarone Check INR Dose coumadin tomorrow, 10mg daily at home Chronic venous insufficiency and lower extremity wounds: Monitor off antibiotics Wound and vascular surgery consultations for further recommendations Continue local wound care and leg elevation Diabetic diet DVT ppx-on coumadin DNR/DNI As Ranked By This Provider Problem List: 1. Dyspnea on exertion 2. Venous stasis ulcers of both lower extremities Core Measures/Misc (08/16) Acute Coronary Syndrome ACS Diagnosis: No Congestive Heart Failure Congestive Heart Failure Diagnosis Yes Last Known EF % 55 Cerebrovascular Accident CVA/TIA Diagnosis: No VTE (View Protocol) VTE Risk Factors Age>40 No Mechanical VTE Prophylaxis d/t N/A MechProphylax Ordered No VTE Pharm Prophylaxis d/t NA PharmProphylax ordered Sepsis (View protocol) Sepsis Present: No Sabino Cartwright 03/03/18 0503: Attending MD Review Statement Attending Statement Attending MD Statement: examined this patient, discuss w/resident/PA/WEIGHT AND BALANCE CONTROL AGENT, agreed w/resident/PA/WEIGHT AND BALANCE CONTROL AGENT, reviewed EMR data (avail), reviewed images, amended to note Attending Assessment/Plan: CC: Shortness of breath PMH: HFpEF, CAD S/P [place] S/P stent 2003, COPD on 3 L nasal cannula, TOMASZ on nighttime CPAP, A. fib, HTN, bilateral lower extremity venous stasis, DM, left total knee replacement Patient was sent to ER from wound clinic for shortness of breath. Patient regularly follows up with miner operator outpatient, last seen 2 weeks back at that time was suggested to go to ER for probable admission for shortness of breath. Patient states that he has been getting progressive short of breath even at rest, cannot walk few steps. When he was suggested to go to ER 2 weeks back, he thought he would deal with it at home and was taking Lasix and metolazone without much relief. He has chronic cough but last few weeks he has been noticing that coughing increases during the nighttime and gets phlegm production every night. He completed antibiotics recently for the phlegm production. He denies any fever, chills, chest pain, chest tightness, nausea, vomiting, diarrhea, urinary symptoms. He has chronic lower extremity swelling and left leg has some denuded area for which he had been following up with [facility]. He was seen by vascular surgeon and Dr. Gonsalez today. Vascular surgeon cleaned the wound and put Unna boot and was suggested to remove after 2 wks. during the same visit he appeared very short of breath and at that time he was suggested to go to ER. Vitals: Afebrile, pulse 81, RR 22, blood pressure 154/83, saturating 94% on 3 L nasal cannula On exam: A O 3, cooperative, moderate respiratory distress, neck supple, JVD difficult to assess, no lymphadenopathy, mucosa moist, no focal neurological deficit, significant dependent edema, CVS: S1-S2, irregular. RS: Bilateral crackles diffusely, decreased air entry bilaterally. Abdomen: Obese, Soft, NT, ND, bowel sounds present. Right lower extremity is wrapped in a Unna boot, foul- smelling dried discharge on the slipper. Left lower extremity has edema with chronic skin changes. CXR: 1. Mild cardiomegaly without acute pulmonary edema. 2. Lung bases are suboptimally visualized/evaluated on this portable chest radiograph. Assessment and plan 62-year-old male with multiple comorbidities as mentioned above presented from wound care clinic for worsening shortness of breath. He was seen by miner operator 2 weeks back and was suggested to go to ER for similar complaints but he waited at home 2 avoid hospitalization. Since last few weeks he has been noticing progressive worsening of shortness of breath, dyspnea on exertion, nocturnal cough and phlegm production but denies any chest pain, chest tightness. He has worsening lower extremity edema for which she is following up with the vascular and wound care. He has crackles on auscultation even though chest x-ray does not mention any worsening of pulmonary edema. Patient was not taking Coreg at home for unclear reason, he also did not have a refill on his inhaler recently. He completed a course of antibiotics for phlegm production without much relief. Patient's shortness of breath appears multifactorial but heart failure more suggestive than COPD. His left lower extremity needs examination, I personally did not remove the dressing as it was just done today and was seen by vascular surgeon, was put in a Unna boot and was suggested to remove it after 2 weeks. Patient does not have any significant fever or leukocytosis but has foul- smelling dried discharge on his slippers. We will get wound care consult for further evaluation of left lower extremity. + Acute on chronic heart failure with preserved ejection fraction + History of COPD + History of CAD S/P [place] S/P stent 2003, COPD on 3 L nasal cannula, TOMASZ on nighttime CPAP, A. fib, HTN, bilateral lower extremity venous stasis, DM, left total knee replacement - Admit to telemetry - Continuous telemetry monitoring - Strict I's and O's - Daily weights - Echocardiogram in a.m. - 1 time 40 mg IV Lasix Now - Reassess her volume status and creatinine in a.m. to schedule another dose of Lasix in a.m. - Follow cardiology recommendation - Continue 3 L nasal cannula oxygen at baseline and nighttime CPAP - Wound care consult - Pulmonology consult - Hold oral hypoglycemics, continue Levemir 20 units twice a day and sliding scale insulin - Check INR, resume home doses of warfarin - Check LFT with a.m. sample - Continue scheduled and when necessary nebulization - Continue Mucinex - Continue rest of his home medications
--- NOTE | 2018-03-03 05:05 | Admission Certification ---
Admission Certification Certification Statement - As attending physician, I certify that at the time of - admission, based on clinical presentation, severity of - symptoms, need for further diagnostic testing and - therapeutic interventions, and risk of adverse outcomes - without in-hospital treatment, in my clinical assessment, - this patient requires an acute hospital stay for a minimum - of two nights or longer. I have also considered psychsocial - factors such as support system, advanced age, financial - issues, cognitive issues, and failed out-patient treatments, - past re-admission history, safety of patient, and lack of - compliance as applicable. Specific rationale supporting this admission is: acute on chronic heart failure with preserved ejection fraction
[2018-03-03 06:36] VITALS: BP 120/60
--- NOTE | 2018-03-03 07:16 | PN- Housestaff ---
CourtJaymaryuri 03/03/18 0715: Subjective Follow-up For: Atrial fibrillation CHF Complaints: no complaints Tele-Events Since Last Visit: NSR, no tele events. Subjective: Mr Johnson was comfortable this morning. He feels better compared to yesterday , and tried to walk up to the door and was short of breath. Vitals remained stable overnight. He was sleeping on the recliner, which is usual for him. He did not have any chest pain, dyspnea at rest, palpitations. He was afebrile overnight. Review of Systems Constitutional: Reports: see HPI. Objective Last 24 Hrs of Vital Signs/I&O Vital Signs Date Time Temp Pulse Resp B/P B/P Pulse O2 O2 Flow FiO2 Mean Ox Delivery Rate 03/03 0636 98.0 61 20 120/60 95 03/03 0053 72 03/02 2252 95 Nasal 2.0L Cannula 03/02 2200 95 Nasal 3.0L Cannula 03/02 2106 97.6 71 18 138/78 93 Nasal 2.0L Cannula 03/02 1946 97.4 97 20 144/86 95 Nasal 3.0L Cannula 03/02 1735 84 22 184/102 96 Nasal 2.0L Cannula 03/02 1537 Nasal 2.0L Cannula 03/02 1524 97.3 81 22 154/83 94 Nasal 3.0L Cannula Intake & Output 03/03 0800 03/03 0000 03/02 1600 Intake Total 600 0 Output Total 1500 550 Balance -900 -550 0 Intake, Oral 600 0 Output, Urine 1500 550 Patient 317 lb 315 lb Weight Weight Reported by Patient Reported by Patient Measurement Method Physical Exam General Appearance: No Acute Distress Other Physical Findings: General Exam: AAOx3, No acute distress, Skin: No rashes ;HEENT: PERRLA, EOMI; Neck: Supple, No JVD, No cervical lymphadenopathy;CVS: Irregular Rate, Normal S1 ,S2, No MGR; Resp: Decreased air entry bilateral, rales b/l w/ wheezes bilatarally;Abdomen: Soft, No tenderness, Normal Bowel Sounds;Neuro: Normal Speech, Strength 5/5 b/l x 4 extremities, Sensation intact, CN III-XII NL, Reflexes 2+;Extremities: No cyanosis, chronic orthostasis changes on the skin on the LLE, with 2+ pitting edema, unna boot in place covered with liza bandage. RLE was not examined. Current Medications: Current Medications Sig/Ann-Marie Start time Last Medication Dose Route Stop Time Status Admin Acetaminophen 0 .STK-MED ONE 03/02 173 DC IV Acetaminophen 1,000 MG ONCE ONE 03/02 1730 DC 03/02 N/A 1 UNIT IV 03/02 1744 1735 Albuterol Sulfate 3 ML ONCE ONE 03/02 2300 DC 03/02 INH 03/02 2301 2251 Amiodarone HCl 200 MG DAILY 03/03 1000 AC 03/03 PO 0810 Aspirin Buffered 81 MG DAILY 03/03 1000 AC 03/03 PO 0809 Atorvastatin Calcium 40 MG 1700 03/03 1700 AC PO Budesonide/ 2 PUF BID 03/02 2200 AC 03/03 Formoterol Fumarate INH 0809 Carvedilol 25 MG BID 03/02 2230 AC 03/03 PO 0809 Docusate Sodium 100 MG BID PRN 03/02 2200 AC PO Furosemide 40 MG ONCE ONE 03/02 2245 DC 03/02 IV 03/02 2246 2310 Gabapentin 600 MG Q8 03/02 2230 AC 03/03 PO 0809 Guaifenesin 600 MG BID 03/02 2200 AC 03/03 PO 0810 Insulin Aspart 0 TIDAC 03/03 0800 AC SC Insulin Detemir 20 UNITS BID 03/02 2200 AC 03/03 SC 0808 Lisinopril 5 MG DAILY 03/03 1000 AC 03/03 PO 0810 Morphine Sulfate 0 .STK-MED ONE 03/02 1731 DC .ROUTE Morphine Sulfate 6 MG ONCE ONE 03/02 1730 DC 03/02 IV 03/02 1731 1735 Nicotine 21 MG DAILY 03/02 2230 DC TOP Oxycodone HCl 10 MG TIDPRN PRN 03/02 2200 AC 03/02 PO 2310 Polyethylene Glycol 17 GM AT BEDTIME PRN 03/02 2200 AC PO Potassium Chloride 10 MEQ DAILY 03/03 1000 AC 03/03 PO 0810 Last 24 Hrs of Lab/Matheus Results Last 24 Hrs of Labs/Mics: Laboratory Tests 03/03/18 0630: Sodium Pending, Potassium Pending, Chloride Pending, Carbon Dioxide Pending, Anion Gap Pending, BUN Pending, Creatinine Pending, BUN/Creatinine Ratio Pending , Magnesium Pending, Total Bilirubin Pending, Direct Bilirubin Pending, AST Pending, ALT Pending, Alkaline Phosphatase Pending, Troponin I Pending, Total Protein Pending, Albumin Pending, PT Pending, INR Pending, CBC w Diff NO MAN DIFF REQ, RBC 4.55 L, MCV 85.0, MCH 27.6, MCHC 32.4 L, RDW 16.4 H, MPV 9.2, Gran % 63.8, Lymphocytes % 16.8 L, Monocytes % 7.9, Eosinophils % 11.1 H, Basophils % 0.4, Absolute Granulocytes 3.9, Absolute Lymphocytes 1.0 L, Absolute Monocytes 0.5, Absolute Eosinophils 0.7, Absolute Basophils 0 03/02/18 2230: Troponin I 0.03 03/02/18 1606: Anion Gap 10, Estimated GFR > 60, BUN/Creatinine Ratio 32.5 H, Glucose 92, Calcium 9.6, Magnesium 1.6, Troponin I 0.03, Diu-O-Urpiibxszwg Pept 1240 H, CBC w Diff NO MAN DIFF REQ, RBC 4.78, MCV 85.3, MCH 27.3, MCHC 32.0 L, RDW 16.4 H, MPV 8.7, Gran % 65.2, Lymphocytes % 14.7 L, Monocytes % 8.3, Eosinophils % 11.5 H, Basophils % 0.3, Absolute Granulocytes 4.6, Absolute Lymphocytes 1.0 L, Absolute Monocytes 0.6, Absolute Eosinophils 0.8, Absolute Basophils 0 Microbiology 03/02 2150 LOWER RESP: Respiratory Culture - COLB 03/02 2150 LOWER RESP: Gram Stain - COLB Assessment/Plan Assessment: Mr Johnson is a 62 year old gentleman w/ PMHx of atrial fibrillation on Coumadin, coronary artery disease status post PCI (2003), chronic venous insufficiency w/ stasis dermatitis ( s/p sclerotherapy), HFpEF, COPD on 1.5-2L oxygen ( PFTs not available at this time ), obstructive sleep apnea on CPAP ( noncompliance), left lower extremity DVT ( dx'ed mame 10 yrs ago), type 2 diabetes, HLD came to the hospital with a chief concern of worsening dyspnea for the last 2 weeks. He was seen recently by a healthcare science specialist and also his cantilever crane operator and recommended him to be evaluated in the hospital. Also reported some noncompliance issues with taking diuretics. Did not have any fever, any recent infections. At the time of admission-WBC 7.1 hemoglobin 13.1, platelets 237. INR 6.41. Sodium 140, potassium 4.2, chloride 97, bicarbonate 33 (slightly metabolic compensation or diaphoresis), BUN 26, creatinine 0.8, AST 15, AST 22, troponin I -0.03, 0.03, 0.03, proBNP 1240. Chest x-ray revealed 1. Mild cardiomegaly without acute pulmonary edema. 2. Lung bases are suboptimally visualized/evaluated on this portable chest radiograph. Etiology in this case is likely multifactorial, with pulmonary competent in- likely increased pulmonary artery pressures secondary to obstructive sleep apnea and COPD, and acute decompensated heart failure given a possible precipitating event, medication noncompliance chronic diastolic heart failure. Plan: - monitor the patient on telemetry - serial EKGs, troponins ruled out for DC -Continue daily Ins and Outs and daily weights -IV diuretics furosemide 40 mg once a day. -Check BEP daily while on diuretics. -2D cardiac echo to assess ejection fraction, valvular pathology or regional wall motion abnormalities -supplemental oxygen as needed -Elevate head of the bed to reduce venous return -CHF diet, 2gm salt restriction -Etl Manager on medication compliance -Consider cxr after adequate diuresis. -Continue Levemir 20 units twice a day, insulin sliding scale. -Continue Symbicort, TRC nebs. Housekeeping: #1 DVT prophylaxis-pharmacological #2 pain management-oxycodone. Problem List: 1. Dyspnea on exertion 2. Venous stasis ulcers of both lower extremities 3. (HFpEF) heart failure with preserved ejection fraction Pain Ratin Pain Location: LE Pain Goal: Pain 4 or less Pain Plan: TYLEOL Tomorrow's Labs & Rationales: cbc bep Sindy Loera 03/03/18 1057: Attending MD Review Statement Attending Statement Attending MD Statement: examined this patient, discuss w/resident/PA/COOKER CLEANER, agreed w/resident/PA/COOKER CLEANER, discussed with family, reviewed EMR data (avail), discussed with nursing, discussed with case mgmt, reviewed images, amended to note Attending Assessment/Plan: 62 o/mw ith pmh of copf on home oxygen, chf comes with worsening shortness of breath and admitted for dyspnea of multifactorial origin chun 2/2 acute on chronic heart failure with preserved EF and COPD on home oxgen with increased oxygen requirements on arrival to ER. Patient received lasix iv with mild improvement in symptoms. Cardiology conuslted and continue iv lasix for now and oxygen supplementation. Discharge planning as his clinical condition improves. gi/dvt prophylaxis DNR/DNI.
[2018-03-03 08:15] LABS: ABSOLUTE BASOPHIL COUNT 0 /CUMM (0.0-0.2); ABSOLUTE EOSINOPHIL COUNT 0.7 /CUMM (0.0-0.7); ABSOLUTE GRANULOCYTE CT 3.9 /CUMM (1.4-6.5); ABSOLUTE MONOCYTE COUNT 0.5 /CUMM (0.10-0.60); BASOPHIL % 0.4 % (0.0-2.0); EOSINOPHIL % 11.1 % (0-5); GRANULOCYTE % 63.8 % (42.2-75.2); HEMATOCRIT 38.7 % (42-52); MEAN CORPUSCULAR HGB 27.6 PG (27.0-31.0); MEAN CORPUSCULAR HGB CONC 32.4 G/DL (33.0-37.0); MEAN PLATELET VOLUME 9.2 FL (7.4-10.4); PLATELET COUNT 216 /CUMM (130-400); RBC DISTRIBUTION WIDTH 16.4 % (11.5-14.5); RED BLOOD CELL CT 4.55 /CUMM (4.70-6.10); WHITE BLOOD CELL COUNT 6.1 /CUMM (4.8-10.8)
[2018-03-03 08:35] LABS: PT 71.2 SEC (9.4-12.5)
--- NOTE | 2018-03-03 13:58 | PN- Cardiology ---
Subjective Subjective: Been about the same today. Lower extremity edema persists though slightly improved. Continues to have cough with production of thick sputum. Objective Vital Signs and I&Os Vital Signs Date Time Temp Pulse Resp B/P B/P Pulse O2 O2 Flow FiO2 Mean Ox Delivery Rate 03/03 0845 Nasal 1.5L Cannula 03/03 0844 93 Nasal 1.5L Cannula 03/03 0810 61 120/60 03/03 0810 61 120/60 03/03 0809 61 120/60 03/03 0636 98.0 61 20 120/60 95 03/03 0053 72 03/02 2252 95 Nasal 2.0L Cannula 03/02 2200 95 Nasal 3.0L Cannula 03/02 2106 97.6 71 18 138/78 93 Nasal 2.0L Cannula 03/02 1946 97.4 97 20 144/86 95 Nasal 3.0L Cannula 03/02 1735 84 22 184/102 96 Nasal 2.0L Cannula 03/02 1537 Nasal 2.0L Cannula 03/02 1524 97.3 81 22 154/83 94 Nasal 3.0L Cannula Intake & Output 03/03 1600 03/03 0800 03/03 0000 03/02 1600 03/02 0800 03/02 0000 Intake Total 600 0 Output Total 1500 550 Balance -900 -550 0 Intake, Oral 600 0 Output, Urine 1500 550 Patient 317 lb 315 lb Weight Weight Reported by Patient Reported by Patient Measurement Method Physical Exam: General Appearance Alert, Oriented X3, Cooperative, Moderate Distress, tachypneic, short of breathing with repositioning and normal speech, obese Skin LE chronic venous insufficiency changes Neck Supple, JVD difficult to assess Cardiovascular Regular Rate, Normal S1, Normal S2, 1 to 2/6 systolic murmur Lungs crackles to bilateral lower lung wheeler, with expiratory wheezing diffusely Abdomen Normal Bowel Sounds, Soft, No Tenderness, No Masses Extremities No Clubbing, No Cyanosis, Normal Pulses, 2+ bilateral pitting edema, RLE unna boot with reported lateral surface purulent drainage Current Medications: Current Medications Sig/Ann-Marie Start time Last Medication Dose Route Stop Time Status Admin Acetaminophen 0 .STK-MED ONE 03/02 173 DC IV Acetaminophen 1,000 MG ONCE ONE 03/02 1730 DC 03/02 N/A 1 UNIT IV 03/02 1744 1735 Albuterol Sulfate 3 ML ONCE ONE 03/02 2300 DC 03/02 INH 04/03 2301 2251 Amiodarone HCl 200 MG DAILY 03/03 1000 AC 03/03 PO 0810 Aspirin Buffered 81 MG DAILY 03/03 1000 AC 03/03 PO 0809 Atorvastatin Calcium 40 MG 1700 03/03 1700 AC PO Budesonide/ 2 PUF BID 03/02 2200 AC 03/03 Formoterol Fumarate INH 0809 Carvedilol 25 MG BID 03/02 2230 AC 03/03 PO 0809 Docusate Sodium 100 MG BID PRN 03/02 2200 AC PO Furosemide 40 MG ONCE ONE 03/03 1015 DC 03/03 IV 03/03 1016 1051 Furosemide 40 MG ONCE ONE 03/02 2245 DC 03/02 IV 03/02 2246 2310 Gabapentin 600 MG Q8 03/02 2230 AC 03/03 PO 0809 Guaifenesin 600 MG BID 03/02 2200 AC 03/03 PO 0810 Insulin Aspart 0 TIDAC 03/03 0800 AC 03/03 SC 1212 Insulin Detemir 20 UNITS BID 03/02 2200 AC 03/03 SC 0808 Ipratropium [employer] 2.5 ML EVERY 4 HRS/AWAKE 03/03 0830 AC 03/03 INH 1158 Lisinopril 5 MG DAILY 03/03 1000 AC 03/03 PO 0810 Morphine Sulfate 0 .STK-MED ONE 03/02 1731 DC .ROUTE Morphine Sulfate 6 MG ONCE ONE 03/02 1730 DC 03/02 IV 03/02 1731 1735 Nicotine 21 MG DAILY 03/02 2230 DC TOP Oxycodone HCl 10 MG TIDPRN PRN 03/02 2200 AC 03/03 PO 0839 Polyethylene Glycol 17 GM AT BEDTIME PRN 03/02 2200 AC PO Potassium Chloride 10 MEQ DAILY 03/03 1000 AC 03/03 PO 0810 Results Last 48 Hrs of Labs/Mics: Laboratory Tests 03/03/18 0630: Anion Gap 13, Estimated GFR > 60, BUN/Creatinine Ratio 28.2 H, Magnesium 1.7, Total Bilirubin 0.8, Direct Bilirubin 0.6 H, AST 15 L, ALT 22, Alkaline Phosphatase 67, Troponin I 0.03, Total Protein 6.5, Albumin 3.7, PT 71.2 *H, INR 6.41 *H, CBC w Diff NO MAN DIFF REQ, RBC 4.55 L, MCV 85.0, MCH 27.6, MCHC 32.4 L, RDW 16.4 H, MPV 9.2, Gran % 63.8, Lymphocytes % 16.8 L, Monocytes % 7.9, Eosinophils % 11.1 H, Basophils % 0.4, Absolute Granulocytes 3.9, Absolute Lymphocytes 1.0 L, Absolute Monocytes 0.5, Absolute Eosinophils 0.7, Absolute Basophils 0 03/02/18 2230: Troponin I 0.03 03/02/18 1606: Anion Gap 10, Estimated GFR > 60, BUN/Creatinine Ratio 32.5 H, Glucose 92, Calcium 9.6, Magnesium 1.6, Troponin I 0.03, Wgt-G-Ticogwvbfkm Pept 1240 H, CBC w Diff NO MAN DIFF REQ, RBC 4.78, MCV 85.3, MCH 27.3, MCHC 32.0 L, RDW 16.4 H, MPV 8.7, Gran % 65.2, Lymphocytes % 14.7 L, Monocytes % 8.3, Eosinophils % 11.5 H, Basophils % 0.3, Absolute Granulocytes 4.6, Absolute Lymphocytes 1.0 L, Absolute Monocytes 0.6, Absolute Eosinophils 0.8, Absolute Basophils 0 Assessment/Plan Assessment/Plan assessment: 1. Worsening shortness of breath and cough, likely multifactorial 2. Exacerbation of underlying COPD 3. Acute on chronic HFpEF 4. Worsening lower extremity edema with increased erythema and weeping left leg. 5.history of coronary artery disease 6. Bilateral lower extremity venous insufficiency with edema and stasis changes 7. Diabetes 8. History of hypertension 9. Sleep apnea Recommendations: -Admit the patient to telemetry monitored floor -Diuresis with IV Lasix and close monitoring of intake, outputs, and daily weights -troponin negative -Follow-up ECG unchanged -echocardiogram pending -Continue other medications of possible -Baseline pulmonary consult -Continue intensive respiratory care and nocturnal CPAP -Continue conservative management of lower extremity edema with elevation, pressure stockings, etc. Continue telemetry? Yes
[2018-03-03 14:25] VITALS: BP 118/66
[2018-03-03 21:59] VITALS: BP 110/80
[2018-03-04 06:58] VITALS: BP 160/90
--- NOTE | 2018-03-04 07:22 | PN- Housestaff ---
Danie Yun 03/04/18 0715: Subjective Follow-up For: Decompensated CHF Complaints: no complaints Review of Systems Constitutional: Reports: see HPI. Objective Last 24 Hrs of Vital Signs/I&O Vital Signs Date Time Temp Pulse Resp B/P B/P Pulse O2 O2 Flow FiO2 Mean Ox Delivery Rate 03/04 0658 98.7 69 20 160/90 95 Nasal 3.0L Cannula 03/04 0318 95 Nasal 2.5L Cannula 03/04 0000 Nasal 3.0L Cannula 03/03 2228 81 110/80 03/03 2159 98.3 81 20 110/80 95 Nasal Cannula 03/03 1600 Nasal 3.0L Cannula 03/03 1553 95 Nasal 1.5L Cannula 03/03 1425 98.3 74 20 118/66 94 Nasal Cannula 03/03 0845 Nasal 1.5L Cannula 03/03 0844 93 Nasal 1.5L Cannula 03/03 0810 61 120/60 03/03 0810 61 120/60 03/03 0809 61 120/60 03/03 0800 95 Nasal 3.0L Cannula Intake & Output 03/04 0800 04 0000 03/03 1600 Intake Total 480 960 Output Total 140 510 7670 Balance -345 -380 -1080 Intake, Oral 480 960 Output, Urine 077 711 7344 Physical Exam General Appearance: No Acute Distress Other Physical Findings: General Exam: AAOx3, No acute distress, Skin: No rashes ;HEENT: PERRLA, EOMI; Neck: Supple, No JVD, No cervical lymphadenopathy;CVS: Irregular Rate, Normal S1 ,S2, No MGR; Resp: Decreased air entry bilateral, rales b/l w/ wheezes bilatarally;Abdomen: Soft, No tenderness, Normal Bowel Sounds;Neuro: Normal Speech, Strength 5/5 b/l x 4 extremities, Sensation intact, CN III-XII NL, Reflexes 2+;Extremities: No cyanosis, chronic orthostasis changes on the skin on the LLE, with 2+ pitting edema, unna boot in place covered with liza bandage. RLE was not examined. Current Medications: Current Medications Sig/Ann-Marie Start time Last Medication Dose Route Stop Time Status Admin Amiodarone HCl 200 MG DAILY 03/03 1000 AC 03/03 PO 0810 Aspirin Buffered 81 MG DAILY 03/03 1000 AC 03/03 PO 0809 Atorvastatin Calcium 40 MG 1700 03/03 1700 AC 03/03 PO 1708 Budesonide/ 2 PUF BID 03/02 2200 AC 03/03 Formoterol Fumarate INH 2229 Carvedilol 25 MG BID 03/02 2230 AC 03/03 PO 2228 Docusate Sodium 100 MG BID PRN 03/02 2200 AC PO Furosemide 40 MG ONCE ONE 03/03 1015 DC 03/03 IV 03/03 1016 1051 Gabapentin 600 MG Q8 03/02 2230 AC 03/04 PO 0601 Guaifenesin 600 MG BID 03/02 2200 AC 03/03 PO 2228 Insulin Aspart 0 TIDAC 03/03 0800 AC 03/03 SC 1212 Insulin Detemir 20 UNITS BID 03/02 220 AC 03/03 SC 2230 Ipratropium [place] 2.5 ML EVERY 4 HRS/AWAKE 03/03 0830 AC 03/04 INH 0307 Lisinopril 5 MG DAILY 03/03 1000 AC 03/03 PO 0810 Oxycodone HCl 10 MG TIDPRN PRN 03/02 2200 AC 03/04 PO 0459 Polyethylene Glycol 17 GM AT BEDTIME PRN 03/02 2200 AC 03/03 PO 2239 Potassium Chloride 10 MEQ DAILY 03/03 1000 AC 03/03 PO 0810 Last 24 Hrs of Lab/[place] Results Last 24 Hrs of Labs/Mics: Laboratory Tests 03/04/18 0618: Sodium Pending, Potassium Pending, Chloride Pending, Carbon Dioxide Pending, Anion Gap Pending, BUN Pending, Creatinine Pending, BUN/Creatinine Ratio Pending , Avx-E-Zfanvmsvghn Pept Pending, CBC w Diff Pending, WBC Pending, RBC Pending, Hgb Pending, Hct Pending, MCV Pending, MCH Pending, MCHC Pending, RDW Pending, Plt Count Pending, MPV Pending Microbiology 03/03 08 LOWER RESP: Respiratory Culture - RES 03/03 840 LOWER RESP: Gram Stain - RES Assessment/Plan Assessment: Mr Johnson is a 62 year old gentleman w/ PMHx of atrial fibrillation on Coumadin, coronary artery disease status post PCI (2003), chronic venous insufficiency w/ stasis dermatitis ( s/p sclerotherapy), HFpEF, COPD on 1.5-2L oxygen ( PFTs not available at this time ), obstructive sleep apnea on CPAP ( noncompliance), left lower extremity DVT ( dx'ed mame 10 yrs ago), type 2 diabetes, HLD came to the hospital with a chief concern of worsening dyspnea for the last 2 weeks. He was seen recently by a asset protection specialist and also his trousseau consultant and recommended him to be evaluated in the hospital. Also reported some noncompliance issues with taking diuretics. Did not have any fever, any recent infections. Etiology in this case is likely multifactorial, with pulmonary competent in- likely increased pulmonary artery pressures secondary to obstructive sleep apnea and COPD, and acute decompensated heart failure given a possible precipitating event, medication noncompliance chronic diastolic heart failure. Labs in the last 24 hrs: FSGs in the last 24 hrs: 205,140,224,175 Plan: - monitor the patient on telemetry -Continue daily Ins and Outs and daily weights -IV diuretics furosemide 40 mg once a day, which was changed to 40 bid, as per Dr. Mitchell. -Check BEP daily while on diuretics. -2D cardiac echo to assess ejection fraction, valvular pathology or regional wall motion abnormalities. Follow up the results. -supplemental oxygen as needed. Titrate as needed. -Elevate head of the bed to reduce venous return -CHF diet, 2gm salt restriction -Cardiology Technician on medication compliance -Consider cxr after adequate diuresis. -Continue Levemir 20 units twice a day, insulin sliding scale. -Continue Symbicort, TRC nebs. -Check INR in the am. Last INR 6.41 on 03/03/18. -Pain meds reassessed. Add dilaudid 2mg po daily. Housekeeping: #1 DVT prophylaxis-pharmacological #2 pain management-oxycodone, and dilaudid ( prn ). Problem List: 1. (HFpEF) heart failure with preserved ejection fraction 2. Insulin dependent type 2 diabetes mellitus 3. Venous stasis ulcers of both lower extremities Pain Ratin Pain Location: lower extremities Pain Goal: Pain 4 or less Pain Plan: tylenol prn Tomorrow's Labs & Rationales: bep inr Sindy Loera 03/04/18 1030: Attending Review Statement Attending Statement Attending MD Statement: examined this patient, discuss w/resident/PA/ADVERTISING SALES ASSISTANT, agreed w/resident/PA/ADVERTISING SALES ASSISTANT, discussed with family, reviewed EMR data (avail), discussed with nursing, discussed with case mgmt, reviewed images, amended to note Attending Assessment/Plan: 62 o/m with pmh of copd on home oxygen, chf comes with worsening shortness of breath and admitted for dyspnea of multifactorial origin chun 2/2 acute on chronic heart failure with preserved EF and COPD on home oxgen with increased oxygen requirements on arrival to ER. Ovenight events with increased shortness of breath on exertion. Oxygen on 3l nc. Requesting pain meds. Cardiology conuslted and increase iv lasix bid and oxygen supplementation. Discharge planning as his clinical condition improves. Pain management consult as outpatient. gi/dvt prophylaxis.
[2018-03-04 08:23] LABS: ABSOLUTE BASOPHIL COUNT 0 /CUMM (0.0-0.2); ABSOLUTE EOSINOPHIL COUNT 0.6 /CUMM (0.0-0.7); ABSOLUTE GRANULOCYTE CT 4.5 /CUMM (1.4-6.5); ABSOLUTE LYMPH COUNT 1.1 /CUMM (1.2-3.4); ABSOLUTE MONOCYTE COUNT 0.5 /CUMM (0.10-0.60); BASOPHIL % 0.4 % (0.0-2.0); EOSINOPHIL % 9.5 % (0-5); GRANULOCYTE % 66.5 % (42.2-75.2); HEMATOCRIT 40.1 % (42-52); MEAN CORPUSCULAR HGB 27.7 PG (27.0-31.0); MEAN CORPUSCULAR HGB CONC 32.6 G/DL (33.0-37.0); MEAN CORPUSCULAR VOLUME 84.8 FL (80.0-94.0); MEAN PLATELET VOLUME 9.3 FL (7.4-10.4); PLATELET COUNT 242 /CUMM (130-400); RBC DISTRIBUTION WIDTH 16.4 % (11.5-14.5); RED BLOOD CELL CT 4.73 /CUMM (4.70-6.10); WHITE BLOOD CELL COUNT 6.7 /CUMM (4.8-10.8)
--- NOTE | 2018-03-04 09:10 | PN- Cardiology ---
Subjective Subjective: Shortness of breath is somewhat better. Still with significant lower extremity edema. No chest pain. No palpitations. No diaphoresis. No nausea or vomiting. Objective Vital Signs and I&Os Vital Signs Date Time Temp Pulse Resp B/P B/P Pulse O2 O2 Flow FiO2 Mean Ox Delivery Rate 03/04 0822 69 160/90 03/04 0822 69 160/90 03/04 0821 69 160/90 03/04 0806 96 Nasal 3.0L Cannula 03/04 0658 98.7 69 20 160/90 95 Nasal 3.0L Cannula 03/04 0318 95 Nasal 2.5L Cannula 03/04 0000 Nasal 3.0L Cannula 03/03 2228 81 110/80 03/03 2159 98.3 81 20 110/80 95 Nasal Cannula 03/03 1600 Nasal 3.0L Cannula 03/03 1553 95 Nasal 1.5L Cannula 03/03 1425 98.3 74 20 118/66 94 Nasal Cannula Intake & Output 03/04 1600 03/04 0000 03/03 1600 03/03 0803/03 0000 Intake Total 480 960 600 Output Total 000 467 7342 1500 550 Balance -345 -380 -1080 -900 -550 Intake, Oral 480 960 600 Output, Urine 333 905 3015 1500 550 Patient 317 lb Weight Weight Reported by Patient Measurement Method Physical Exam: Gen: NAD HEENT: normal Lungs: clear to auscultation, normal resp. effort Heart: RRR, S1, S2, 1/6 systolic murmur Abdomen: Soft, nontender, no masses Extremities: No clubbing, cyanosis, or edema. Neuro: Alert and oriented x 3, cranial nerves intact Current Medications: Current Medications Sig/Ann-Marie Start time Last Medication Dose Route Stop Time Status Admin Amiodarone HCl 200 MG DAILY 03/03 1000 AC 03/04 PO 0822 Aspirin Buffered 81 MG DAILY 03/03 1000 AC 03/04 PO 0821 Atorvastatin Calcium 40 MG 1700 03/03 1700 AC 03/03 PO 1708 Budesonide/ 2 PUF BID 03/02 2200 AC 03/04 Formoterol Fumarate INH 0822 Carvedilol 25 MG BID 03/02 2230 AC 03/04 PO 0822 Docusate Sodium 100 MG BID PRN 03/02 2200 AC PO Furosemide 40 MG ONCE ONE 03/03 1015 DC 03/03 IV 03/03 1016 1051 Gabapentin 600 MG Q8 03/02 2230 AC 03/04 PO 0601 Guaifenesin 600 MG BID 03/02 2200 AC 03/04 PO 0821 Insulin Aspart 0 TIDAC 03/03 08 AC 03/04 SC 0823 Insulin Detemir 20 UNITS BID 03/02 2200 AC 03/04 SC 0823 Ipratropium [place] 2.5 ML EVERY 4 HRS/AWAKE 03/03 0830 AC 03/04 INH 0805 Lisinopril 5 MG DAILY 03/03 1000 AC 03/04 PO 08 Oxycodone HCl 10 MG TIDPRN PRN 03/02 2200 AC 03/04 PO 0827 Polyethylene Glycol 17 GM AT BEDTIME PRN 03/02 2200 AC 03/03 PO 223 Potassium Chloride 10 MEQ DAILY 03/03 1000 AC 03/04 PO 0821 Results Last 48 Hrs of Labs/Mics: Laboratory Tests 03/04/18 0618: Anion Gap 14, Estimated GFR > 60, BUN/Creatinine Ratio 35.0 H, Pro-B- Natriuretic Pept 716 H, CBC w Diff NO MAN DIFF REQ, RBC 4.73, MCV 84.8, MCH 27.7, MCHC 32.6 L, RDW 16.4 H, MPV 9.3, Gran % 66.5, Lymphocytes % 15.8 L, Monocytes % 7.8, Eosinophils % 9.5 H, Basophils % 0.4, Absolute Granulocytes 4.5, Absolute Lymphocytes 1.1 L, Absolute Monocytes 0.5, Absolute Eosinophils 0.6, Absolute Basophils 0 03/03/18 06: Anion Gap 13, Estimated GFR > 60, BUN/Creatinine Ratio 28.2 H, Magnesium 1.7, Total Bilirubin 0.8, Direct Bilirubin 0.6 H, AST 15 L, ALT 22, Alkaline Phosphatase 67, Troponin I 0.03, Total Protein 6.5, Albumin 3.7, PT 71.2 *H, INR 6.41 *H, CBC w Diff NO MAN DIFF REQ, RBC 4.55 L, MCV 85.0, MCH 27.6, MCHC 32.4 L, RDW 16.4 H, MPV 9.2, Gran % 63.8, Lymphocytes % 16.8 L, Monocytes % 7.9, Eosinophils % 11.1 H, Basophils % 0.4, Absolute Granulocytes 3.9, Absolute Lymphocytes 1.0 L, Absolute Monocytes 0.5, Absolute Eosinophils 0.7, Absolute Basophils 0 03/02/18 2230: Troponin I 0.03 03/02/18 1606: Anion Gap 10, Estimated GFR > 60, BUN/Creatinine Ratio 32.5 H, Glucose 92, Calcium 9.6, Magnesium 1.6, Troponin I 0.03, Ewd-W-Jcycwggnkbb Pept 1240 H, CBC w Diff NO MAN DIFF REQ, RBC 4.78, MCV 85.3, MCH 27.3, MCHC 32.0 L, RDW 16.4 H, MPV 8.7, Gran % 65.2, Lymphocytes % 14.7 L, Monocytes % 8.3, Eosinophils % 11.5 H, Basophils % 0.3, Absolute Granulocytes 4.6, Absolute Lymphocytes 1.0 L, Absolute Monocytes 0.6, Absolute Eosinophils 0.8, Absolute Basophils 0 Assessment/Plan Assessment/Plan Assessment: 1. Worsening shortness of breath and cough, likely multifactorial 2. Exacerbation of underlying COPD 3. Acute on chronic HFpEF 4. Worsening lower extremity edema with increased erythema and weeping left leg. 5.history of coronary artery disease 6. Bilateral lower extremity venous insufficiency with edema and stasis changes 7. Diabetes 8. History of hypertension 9. Sleep apnea Plan: * Increase dose of Lasix to 40 mg IV every 12 hours * Monitor input and output with daily weights * Check basic metabolic profile daily * Continue other cardiac medication * Echocardiogram pending Continue telemetry? Yes
[2018-03-04 14:15] VITALS: BP 130/66
[2018-03-04 22:37] VITALS: BP 112/60
[2018-03-05 06:28] VITALS: BP 110/70
--- NOTE | 2018-03-05 07:16 | PN- Housestaff ---
Danie Yun 03/05/18 0713: Subjective Follow-up For: - CHF Complaints: no complaints Tele-Events Since Last Visit: Afib, HR controlled. Subjective: He was comfortable this am. No new complaints. He walked up to the bathroom, and is not short of breath anymore. Vitals stable. Pain is adequately controlled. He was started on 40mg iv lasix bid, and would continue it for now. Review of Systems Constitutional: Reports: see HPI. Objective Last 24 Hrs of Vital Signs/I&O Vital Signs Date Time Temp Pulse Resp B/P B/P Pulse O2 O2 Flow FiO2 Mean Ox Delivery Rate 03/05 0628 97.8 69 20 110/70 96 / 0218 98 Nasal 3.0L Cannula 03/05 0000 Nasal 3.0L Cannula 03/04 2243 77 / 2237 98.2 70 18 112/60 97 Nasal Cannula / 1600 90 Room Air 03/04 1415 98.0 80 17 130/66 96 Nasal 3.0L Cannula 03/04 0822 69 160/90 / 0822 69 160/90 04/ 0821 69 160/90 04/05 0806 96 Nasal 3.0L Cannula 03/04 0800 97 Nasal 3.0L Cannula Intake & Output 03/05 0800 04/ 0000 04/05 1600 Intake Total 100 410 Output Total 775 3150 1200 Balance -675 -3150 -790 Intake, IV 10 Intake, Oral 100 400 Output, Urine 775 3150 1200 Physical Exam General Appearance: No Acute Distress Other Physical Findings: General Exam: AAOx3, No acute distress, Skin: No rashes ;HEENT: PERRLA, EOMI; Neck: Supple, No JVD, No cervical lymphadenopathy;CVS: Irregular Rate, Normal S1 ,S2, No MGR; Resp: Decreased air entry bilateral, rales b/l w/ wheezes bilatarally;Abdomen: Soft, No tenderness, Normal Bowel Sounds;Neuro: Normal Speech, Strength 5/5 b/l x 4 extremities, Sensation intact, CN III-XII NL, Reflexes 2+;Extremities: No cyanosis, chronic orthostasis changes on the skin on the LLE, with 2+ pitting edema, unna boot in place covered with liza bandage. RLE was not examined. Current Medications: Current Medications Sig/Ann-Marie Start time Last Medication Dose Route Stop Time Status Admin Amiodarone HCl 200 MG DAILY 03/03 1000 AC 03/04 PO 0822 Aspirin Buffered 81 MG DAILY 03/03 1000 AC 03/04 PO 0821 Atorvastatin Calcium 40 MG 1700 03/03 1700 AC 03/04 PO 1544 Budesonide/ 2 PUF BID 03/02 2200 AC 03/04 Formoterol Fumarate INH 2243 Carvedilol 25 MG BID 03/02 2230 AC 03/04 PO 2243 Docusate Sodium 100 MG BID PRN 03/02 2200 AC PO Furosemide 40 MG 7:30 AM, & 4:30 PM 03/04 1630 AC 03/04 IV 1544 Furosemide 20 MG ONCE ONE 03/04 1430 DC 03/04 IV 03/04 1431 1544 Furosemide 20 MG 7:30 AM, & 4:30 PM 03/04 0930 KS 03/04 IV 1045 Gabapentin 600 MG Q8 03/02 2230 03/05 PO 0516 Guaifenesin 600 MG BID 03/02 2200 03/04 PO 2242 Hydromorphone HCl 2 MG ONCE PRN 03/04 0930 03/04 PO 1114 Insulin Aspart 0 TIDAC 03/03 0800 03/04 SC 1240 Insulin Detemir 20 UNITS BID 03/02 2200 03/04 SC 2241 Ipratropium [place] 2.5 ML EVERY 4 HRS/AWAKE 03/03 0830 03/05 INH 0200 Lisinopril 5 MG DAILY 03/03 1000 AC 03/04 PO 0821 Oxycodone HCl 10 MG TIDPRN PRN 03/02 220 03/05 PO 0516 Patient Medication 1 ED ONE ONE 03/04 0945 [place] Teaching ED 03/04 0946 Polyethylene Glycol 17 GM AT BEDTIME PRN 03/02 2200 03/03 PO 2239 Potassium Chloride 10 MEQ DAILY 03/03 1000 03/04 PO 0821 Last 24 Hrs of Lab/[place] Results Last 24 Hrs of Labs/Mics: Laboratory Tests 03/05/18 0600: Sodium Pending, Potassium Pending, Chloride Pending, Carbon Dioxide Pending, Anion Gap Pending, BUN Pending, Creatinine Pending, BUN/Creatinine Ratio Pending , PT Pending, INR Pending Assessment/Plan Assessment: Mr Johnson is a 62 year old gentleman w/ PMHx of atrial fibrillation on Coumadin, coronary artery disease status post PCI (2003), chronic venous insufficiency w/ stasis dermatitis ( s/p sclerotherapy), HFpEF, COPD on 1.5-2L oxygen ( PFTs not available at this time ), obstructive sleep apnea on CPAP ( noncompliance), left lower extremity DVT ( dx'ed mame 10 yrs ago), type 2 diabetes, HLD came to the hospital with a chief concern of worsening dyspnea for the last 2 weeks. He was seen recently by a process control specialist and also his pellet preparation operator and recommended him to be evaluated in the hospital. Also reported some noncompliance issues with taking diuretics. Did not have any fever, any recent infections. Etiology in this case is likely multifactorial, with pulmonary competent in- likely increased pulmonary artery pressures secondary to obstructive sleep apnea and COPD, and acute decompensated heart failure given a possible precipitating event, medication noncompliance chronic diastolic heart failure. Labs in the last 24 hrs: INR 2.49. Sodium 135, K 4.5, BUN 31, Sr Cr 1.2 FSGs in the last 24 hrs: 178,165 Plan: - monitor the patient on telemetry -Continue daily Ins and Outs and daily weights -IV diuretics furosemide 40 mg BID, Would change to po today after discussing with the pellet preparation operator. -2D cardiac echo to assess ejection fraction, valvular pathology or regional wall motion abnormalities. Follow up the results. -supplemental oxygen as needed. Titrate as needed. Currently on 3L. -Elevate head of the bed to reduce venous return -CHF diet, 2gm salt restriction -Scientific Research Manager on medication compliance -Consider cxr after adequate diuresis. -Continue Levemir 20 units twice a day, insulin sliding scale. -Continue Symbicort, TRC nebs. -Check INR in the am. Last INR 2.49 on 03/05/18. Dose Coumadin 10mg which is home dose as per the pt. -Pain meds reassessed. Add dilaudid 2mg po daily, if needed. Housekeeping: #1 DVT prophylaxis-pharmacological #2 pain management-oxycodone, and dilaudid ( prn ). Problem List: 1. Dyspnea on exertion 2. Venous stasis ulcers of both lower extremities 3. Acute diastolic (congestive) heart failure Pain Ratin Pain Location: lower extremities Pain Goal: Pain 4 or less Pain Plan: tylenol Tomorrow's Labs & Rationales: bep while he is being treated w/ diuretics Luz MariaSindy 03/05/18 1030: Attending MD Review Statement Attending Statement Attending MD Statement: examined this patient, discuss w/resident/PA/SAP CONSULTANT, agreed w/resident/PA/SAP CONSULTANT, discussed with family, reviewed EMR data (avail), discussed with nursing, discussed with case mgmt, reviewed images, amended to note Attending Assessment/Plan: 62 o/m with pmh of copd on home oxygen, chf comes with worsening shortness of breath and admitted for dyspnea of multifactorial origin chun 2/2 acute on chronic heart failure with preserved EF and COPD on home oxgen with increased oxygen requirements on arrival to ER. Ovenight events with improvement in shortness of breath on exertion. Oxygen on 3l nc. Cardiology conuslted and increased iv lasix to bid. Discharge planning as his clinical condition improves. Pain management consult as outpatient. Anticipate dc in next 24 hrs. requesting to see pulm, o/p appointment. gi/dvt prophylaxis.
[2018-03-05 08:26] LABS: PT 27.4 SEC (9.4-12.5)
--- NOTE | 2018-03-05 10:44 | Cons- Pulmonary ---
General Information and HPI Consulting Request Date of Consult: 03/05/18 Allergies/Medications Allergies: Coded Allergies: NO KNOWN ALLERGIES (UNKNOWN 04/06/17) Home Med List: Amiodarone (Cordarone) 200 MG TABLET 1 TAB PO DAILY AFIB (Reported) Aspirin (Ecotrin*) 81 MG TABLET.DR 1 TAB PO DAILY HEART/BLOOD (Reported) Atorvastatin Calcium 40 MG TABLET 1 TAB PO DAILY CHOLESTEROL (Reported) Budesonide/Formoterol Fumarate (Symbicort 160-4.5 Mcg Inhaler) 10.2 GM HFA.AER.AD 2 PUF INH BID COPD Carvedilol 25 MG TABLET 1 TAB PO BID HEART (Reported) Cholecalciferol (Vitamin D3) (Vitamin D) 2,000 UNIT TABLET 1 TAB PO DAILY SUPPLEMENT (Reported) Cyanocobalamin (Vitamin B-12) (Vitamin B-12) 2,000 MCG TABLET 1 TAB PO DAILY SUPPLEMENT (Reported) Docusate Sodium (Colace) 100 MG CAPSULE 1 CAP PO BID PRN Constipation Fenofibrate 160 MG TABLET 1 TAB PO DAILY CHOLESTEROL (Reported) Furosemide (Lasix) 40 MG TABLET 1 TAB PO 7:30 AM, & 4:30 PM CHF Gabapentin 600 MG TABLET 1 TAB PO TID NEUROPATHY (Reported) Guaifenesin (Guaifenesin ER) 600 MG TAB.ER.12H 600 MG PO BID PRODUCTIVE COUGH Insulin Aspart, Recombinant (Novolog Flexpen) 100 UNIT/1 ML INSULN.PEN 0 SC TIDAC/HS DIABETES BLOOD SUGAR BEFORE MEALS UNITS BEDTIME LESS THAN 80 INITIATE HYPOGLYCEMIA 80-150 16 UNITS 151-200 18 UNITS 201-250 20 UNITS 251-300 22 UNITS 4 UNITS 301-350 24 UNITS 6 UNITS 351-400 26 UNITS 8 UNITS 351-400 26 UNITS, CALL 10 UNITS, CALL Insulin Detemir (Levemir Flextouch) 100 UNIT/ML (3 ML) INSULN.PEN 30 UNITS SC BID DM (Reported) Levalbuterol HCl 1.25 MG/3 ML VIAL.NEB 1 INH PO Q4 BREATHING PROBLEMS ( Reported) Lisinopril (Prinivil) 5 MG TABLET 1 TAB PO DAILY HTN (Reported) Magnesium Chloride (Slow-Mag) 71.5 MG TABLET.DR 64 MG PO DAILY SUPPLEMENT Metformin HCl 850 MG TABLET 850 MG PO 0800,1700 diabetes Nystatin 100,000 UNIT/GRAM CREAM..G. 1 NIKITA TOP BID FUNGAL INFECTION Oseltamivir Phosphate (Tamiflu) 75 MG CAPSULE 75 MG PO BID INFLUENZA Oxycodone HCl 10 MG TABLET 10 MG PO TID CHRONIC PAIN (Reported) Polyethylene Glycol 3350 (Miralax) 119 GM POWDER 17 GM PO AT BEDTIME PRN CONSTIPATION Potassium Chloride 10 MEQ CAPSULE.ER 1 CAP PO DAILY SUPPLEMENT (Reported) Prednisone 10 MG TABLET 1 TAB PO DAILY WHEEZING, COPD Warfarin Sodium (Coumadin) 10 MG TABLET 1 TAB PO SuMoTuThFrSa BLOOD THINNER ( Reported) Past History Travel History Traveled to [place] past 21 day No Medical History Blood Transfusion Hx: No Neurological: NONE EENT: NONE Cardiovascular: AFIB, CAD, CHF, chronic venous insuff, hypertension, hyperlipidemia, myocardial infarction, STENT 2003 Respiratory: bronchitis, COPD, emphysema, obstructive sleep apnea, 02 3LDEPENDENT Gastrointestinal: NONE Hepatic: NONE Renal: NONE Musculoskeletal: degen joint disease Psychiatric: NONE Endocrine: diabetes Blood Disorders: DVT LLE Cancer(s): NONE SWIMMING POOL SERVICER/Reproductive: NONE Surgical History Surgical History: cholecystectomy, knee replacement (left knee), status post aborted maze procedure b/l LE venous sclerotherapy Family History Relations & Conditions If Any: FATHER FH: heart attack FH: HTN (hypertension) MOTHER FH: heart attack FH: HTN (hypertension) FHx: stroke SISTER FH: breast cancer FH: CHF (congestive heart failure) Psychosocial History Where Do You Live? Home Who Do You Live With? spouse Services at Home: Oxygen Primary Language: Sinhala Smoking Status: Former Smoker ETOH Use: denies use Illicit Drug Use: denies illicit drug use Living Will? no Power of Bobbin Fixer/HCP? no Functional Ability ADLs Independent: dressing, eating, toileting, bathing. Ambulation: walker (also uses cane sometimes) IADLs Independent: shopping, housework, finances, food prep, telephone, transportation , medication admin. Assessment/Plan Consult Acknowledgment - Thank you for your consult request.
--- NOTE | 2018-03-05 14:18 | PN- Cardiology ---
Subjective Subjective: Doing a bit better today. Still coughing up thick sputum. Still dyspneic with even conversation. Objective Vital Signs and I&Os Vital Signs Date Time Temp Pulse Resp B/P B/P Pulse O2 O2 Flow FiO2 Mean Ox Delivery Rate 03/05 0851 93 Nasal 3.0L Cannula 03/05 0804 69 110/70 03/05 0803 69 110/70 03/05 0803 69 110/70 03/05 0800 97 Nasal 3.0L Cannula 03/05 0628 97.8 69 20 110/70 96 03/05 0218 98 Nasal 3.0L Cannula 03/05 0000 Nasal 3.0L Cannula 03/04 2243 77 03/04 2237 98.2 70 18 112/60 97 Nasal Cannula 03/04 1600 90 Room Air Intake & Output 03/05 1600 03/05 0803/05 0000 03/04 1600 03/04 0803/04 0000 Intake Total 100 410 480 Output Total 775 3150 1200 825 380 Balance -675 -3150 -790 -345 -380 Intake, IV 10 Intake, Oral 100 400 480 Output, Urine 775 3150 1200 825 380 Physical Exam: General Appearance Alert, Oriented X3, Cooperative, Mild Distress, tachypneic, short of breath with normal speech, obese Skin LE chronic venous insufficiency changes Neck Supple, JVD difficult to assess Cardiovascular Regular Rate, Normal S1, Normal S2, 1 to 2/6 systolic murmur Lungs crackles to bilateral lower lung wheeler, with expiratory wheezing diffusely Abdomen Normal Bowel Sounds, Soft, No Tenderness, No Masses Extremities No Clubbing, No Cyanosis, Normal Pulses, 2+ bilateral pitting edema, RLE unna boot Current Medications: Current Medications Sig/Ann-Marie Start time Last Medication Dose Route Stop Time Status Admin Amiodarone HCl 200 MG DAILY 03/03 1000 AC 03/05 PO 0804 Aspirin Buffered 81 MG DAILY 03/03 1000 AC 03/05 PO 0803 Atorvastatin Calcium 40 MG 1700 03/03 1700 AC 03/04 PO 1544 Budesonide/ 2 PUF BID 03/02 2200 AC 03/05 Formoterol Fumarate INH 0804 Carvedilol 25 MG BID 03/02 2230 AC 03/05 PO 0803 Docusate Sodium 100 MG BID PRN 03/02 2200 AC PO Furosemide 40 MG BID 03/05 1000 AC 03/05 IV 0802 Furosemide 40 MG 7:30 AM, & 4:30 PM 03/04 1630 DC 03/04 IV 1544 Furosemide 20 MG ONCE ONE 03/04 1430 DC 03/04 IV 03/04 1431 1544 Gabapentin 600 MG Q8 03/02 2230 AC 03/05 PO 0516 Guaifenesin 600 MG BID 03/02 2200 AC 03/05 PO 0803 Hydromorphone HCl 2 MG ONCE PRN 03/04 0930 AC 03/04 PO 1114 Insulin Aspart 0 TIDAC 03/03 0800 AC 03/05 SC 1243 Insulin Detemir 20 UNITS BID 03/02 2200 AC 03/05 SC 0804 Ipratropium [place] 2.5 ML EVERY 4 HRS/AWAKE 03/03 0830 AC 03/05 INH 1301 Lisinopril 5 MG DAILY 03/03 1000 AC 03/05 PO 0803 Oxycodone HCl 10 MG TIDPRN PRN 03/02 2200 AC 03/05 PO 0516 Polyethylene Glycol 17 GM AT BEDTIME PRN 03/02 220 AC 03/03 PO 2239 Potassium Chloride 10 MEQ DAILY 03/03 1000 AC 03/05 PO 0803 Warfarin Sodium 10 MG COUMADIN 1700 ONE 03/05 1700 AC PO 03/05 1701 Results Last 48 Hrs of Labs/Mics: Laboratory Tests 03/05/18 0600: Anion Gap 11, Estimated GFR > 60, BUN/Creatinine Ratio 31.7 H, PT 27.4 H, INR 2.49 H 03/04/18 0618: Anion Gap 14, Estimated GFR > 60, BUN/Creatinine Ratio 35.0 H, Pro-B- Natriuretic Pept 716 H, CBC w Diff NO MAN DIFF REQ, RBC 4.73, MCV 84.8, MCH 27.7, MCHC 32.6 L, RDW 16.4 H, MPV 9.3, Gran % 66.5, Lymphocytes % 15.8 L, Monocytes % 7.8, Eosinophils % 9.5 H, Basophils % 0.4, Absolute Granulocytes 4.5, Absolute Lymphocytes 1.1 L, Absolute Monocytes 0.5, Absolute Eosinophils 0.6, Absolute Basophils 0 Assessment/Plan Assessment/Plan Assessment: 1. Worsening shortness of breath and cough, likely multifactorial 2. Exacerbation of underlying COPD 3. Acute on chronic HFpEF 4. Worsening lower extremity edema with increased erythema and weeping left leg. 5. history of coronary artery disease 6. Bilateral lower extremity venous insufficiency with edema and stasis changes 7. Diabetes 8. History of hypertension 9. Sleep apnea Recommendations: -Keep on 1 [place] telemetry -Continue with Diuresis with IV Lasix and close monitoring of intake, outputs, and daily weights -troponin negative -Follow-up ECG unchanged -echocardiogram pending -Continue other medications of possible -Pulmonary recommendations as per Dr. Worthy; Discussed wth the patient -Continue intensive respiratory care and nocturnal CPAP -Continue conservative management of lower extremity edema with elevation, pressure stockings, etc. Continue telemetry? Yes
--- NOTE | 2018-03-05 14:41 | Cons- Pulmonary ---
General Information and HPI Consulting Request Date of Consult: 03/05/18 Requested By: Dr. Loera Reason for Consult: Dyspnea Source of Information: patient History of Present Illness: 62 year old man. Hx of CAD, COPD on 3LNC, Hx of TOMASZ declined therapy due to discomfort. a.fib, htn, CHF EF preserved. Chronic venous insufficiency with wounds. Hasn't a marine habitat resource specialist outpatient for 4 years. He has exertional and conversational dyspnea chronically but worsened recently. He feels somewhat better after diuresis and his leg edema is somewhat improved, but still significant. He does have brownish phlegm, cough, wheezing and clearly an underlying COPD component as well. No fevers, no chills, no mcclendon, no sick contacts or travel hx. No n/v/d/c. He has a hx of begin colonized with pseduomonas in the past. CXR with mild cardiomegaly. Lung bases suboptimal. Allergies/Medications Allergies: Coded Allergies: NO KNOWN ALLERGIES (UNKNOWN 04/06/17) Home Med List: Amiodarone (Cordarone) 200 MG TABLET 1 TAB PO DAILY AFIB (Reported) Aspirin (Ecotrin*) 81 MG TABLET.DR 1 TAB PO DAILY HEART/BLOOD (Reported) Atorvastatin Calcium 40 MG TABLET 1 TAB PO DAILY CHOLESTEROL (Reported) Budesonide/Formoterol Fumarate (Symbicort 160-4.5 Mcg Inhaler) 10.2 GM HFA.AER.AD 2 PUF INH BID COPD Carvedilol 25 MG TABLET 1 TAB PO BID HEART (Reported) Cholecalciferol (Vitamin D3) (Vitamin D) 2,000 UNIT TABLET 1 TAB PO DAILY SUPPLEMENT (Reported) Cyanocobalamin (Vitamin B-12) (Vitamin B-12) 2,000 MCG TABLET 1 TAB PO DAILY SUPPLEMENT (Reported) Docusate Sodium (Colace) 100 MG CAPSULE 1 CAP PO BID PRN Constipation Fenofibrate 160 MG TABLET 1 TAB PO DAILY CHOLESTEROL (Reported) Furosemide (Lasix) 40 MG TABLET 1 TAB PO 7:30 AM, & 4:30 PM CHF Gabapentin 600 MG TABLET 1 TAB PO TID NEUROPATHY (Reported) Guaifenesin (Guaifenesin ER) 600 MG TAB.ER.12H 600 MG PO BID PRODUCTIVE COUGH Insulin Aspart, Recombinant (Novolog Flexpen) 100 UNIT/1 ML INSULN.PEN 0 SC TIDAC/HS DIABETES BLOOD SUGAR BEFORE MEALS UNITS BEDTIME LESS THAN 80 INITIATE HYPOGLYCEMIA 80-150 16 UNITS 151-200 18 UNITS 201-250 20 UNITS 251-300 22 UNITS 4 UNITS 301-350 24 UNITS 6 UNITS 351-400 26 UNITS 8 UNITS 351-400 26 UNITS, CALL 10 UNITS, CALL Insulin Detemir (Levemir Flextouch) 100 UNIT/ML (3 ML) INSULN.PEN 30 UNITS SC BID DM (Reported) Levalbuterol HCl 1.25 MG/3 ML VIAL.NEB 1 INH PO Q4 BREATHING PROBLEMS ( Reported) Lisinopril (Prinivil) 5 MG TABLET 1 TAB PO DAILY HTN (Reported) Magnesium Chloride (Slow-Mag) 71.5 MG TABLET.DR 64 MG PO DAILY SUPPLEMENT Metformin HCl 850 MG TABLET 850 MG PO 0800,1700 diabetes Nystatin 100,000 UNIT/GRAM CREAM..G. 1 NIKITA TOP BID FUNGAL INFECTION Oseltamivir Phosphate (Tamiflu) 75 MG CAPSULE 75 MG PO BID INFLUENZA Oxycodone HCl 10 MG TABLET 10 MG PO TID CHRONIC PAIN (Reported) Polyethylene Glycol 3350 (Miralax) 119 GM POWDER 17 GM PO AT BEDTIME PRN CONSTIPATION Potassium Chloride 10 MEQ CAPSULE.ER 1 CAP PO DAILY SUPPLEMENT (Reported) Prednisone 10 MG TABLET 1 TAB PO DAILY WHEEZING, COPD Warfarin Sodium (Coumadin) 10 MG TABLET 1 TAB PO SuMoTuThFrSa BLOOD THINNER ( Reported) Current Medications: Current Medications Sig/Ann-Marie Start time Last Medication Dose Route Stop Time Status Admin Amiodarone HCl 200 MG DAILY 03/03 1000 AC 03/05 PO 0804 Aspirin Buffered 81 MG DAILY 03/03 1000 AC 03/05 PO 0803 Atorvastatin Calcium 40 MG 1700 03/03 1700 AC 03/04 PO 1544 Budesonide/ 2 PUF BID 03/02 2200 AC 03/05 Formoterol Fumarate INH 0804 Carvedilol 25 MG BID 03/02 2230 AC 03/05 PO 0803 Docusate Sodium 100 MG BID PRN 03/02 2200 AC PO Furosemide 40 MG BID 03/05 1000 AC 03/05 IV 0802 Furosemide 40 MG 7:30 AM, & 4:30 PM 03/04 1630 DC 04/ IV 1544 Gabapentin 600 MG Q8 03/02 2230 AC 03/05 PO 0516 Guaifenesin 600 MG BID 03/02 2200 AC 03/05 PO 0803 Hydromorphone HCl 2 MG ONCE PRN 03/04 0930 AC 03/04 PO 1114 Insulin Aspart 0 TIDAC 03/03 0800 AC 03/05 SC 1243 Insulin Detemir 20 UNITS BID 03/02 2200 AC 03/05 SC 0804 Ipratropium [place] 2.5 ML EVERY 4 HRS/AWAKE 03/03 0830 AC 03/05 INH 1301 Lisinopril 5 MG DAILY 03/03 1000 AC 03/05 PO 0803 Oxycodone HCl 10 MG TIDPRN PRN 03/02 2200 AC 03/05 PO 0516 Polyethylene Glycol 17 GM AT BEDTIME PRN 03/02 2200 AC 03/03 PO 2239 Potassium Chloride 10 MEQ DAILY 03/03 1000 AC 03/05 PO 0803 Warfarin Sodium 10 MG COUMADIN 1700 ONE 03/05 1700 AC PO 03/05 1701 Review of Systems Comments 18 point review of systems was performed and reviewed. Please see pertinent positives and pertinent negatives in the HPI. Otherwise ROS is negative. 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 Home Who Do You Live With? spouse Services at Home: Oxygen Primary Language: American Smoking Status: Former Smoker ETOH Use: denies use Illicit Drug Use: denies illicit drug use Living Will? no Power of Embedded Software Programmer/HCP? no Functional Ability ADLs Independent: dressing, eating, toileting, bathing. Ambulation: walker (also uses cane sometimes) IADLs Independent: shopping, housework, finances, food prep, telephone, transportation , medication admin. Exam & Diagnostic Data Last 24 Hrs of Vital Signs/I&O Vital Signs Date Time Temp Pulse Resp B/P B/P Pulse O2 O2 Flow FiO2 Mean Ox Delivery Rate 03/05 0851 93 Nasal 3.0L Cannula 03/05 0804 69 110/70 03/05 0803 69 110/70 03/05 0803 69 110/70 03/05 0800 97 Nasal 3.0L Cannula 03/05 0628 97.8 69 20 110/70 96 03/05 0218 98 Nasal 3.0L Cannula 03/05 0000 Nasal 3.0L Cannula 03/04 2243 77 03/04 2237 98.2 70 18 112/60 97 Nasal Cannula 03/04 1600 90 Room Air Intake & Output 03/05 1600 03/05 0800 03/05 0000 Intake Total 470 100 Output Total 7688 965 3822 Balance -780 -675 -3150 Intake, IV 20 Intake, Oral 450 100 Output, Urine 2691 494 5299 Physical Exam Other Physical Findings: gen awake - conversational dyspnea heent nasal cannula cvs s1, s2 lungs bilateral crackles, rhonchi/wheezing abd obese ext bilateral edema Last 48 Hrs of Labs/[place]: Laboratory Tests 03/05/18 0600: Anion Gap 11, Estimated GFR > 60, BUN/Creatinine Ratio 31.7 H, PT 27.4 H, INR 2.49 H 03/04/18 0618: Anion Gap 14, Estimated GFR > 60, BUN/Creatinine Ratio 35.0 H, Pro-B- Natriuretic Pept 716 H, CBC w Diff NO MAN DIFF REQ, RBC 4.73, MCV 84.8, MCH 27.7, MCHC 32.6 L, RDW 16.4 H, MPV 9.3, Gran % 66.5, Lymphocytes % 15.8 L, Monocytes % 7.8, Eosinophils % 9.5 H, Basophils % 0.4, Absolute Granulocytes 4.5, Absolute Lymphocytes 1.1 L, Absolute Monocytes 0.5, Absolute Eosinophils 0.6, Absolute Basophils 0 Assessment/Plan Impression/Plan: Impression 62 year old man. Hx of CAD, COPD on 3LNC, Hx of TOMASZ declined therapy due to discomfort. a.fib, htn, CHF EF preserved. Chronic venous insufficiency with wounds. Hasn't a marine habitat resource specialist outpatient for 4 years. He has exertional and conversational dyspnea chronically but worsened recently. He feels somewhat better after diuresis and his leg edema is somewhat improved, but still significant. He does have brownish phlegm, cough, wheezing and clearly an underlying COPD component as well. No fevers, no chills, no mcclendon, no sick contacts or travel hx. No n/v/d/c. He has a hx of begin colonized with pseduomonas in the past. CXR with mild cardiomegaly. Lung bases suboptimal. Plan -TRC/Nebs -cxr 2 view today - (was suboptimal) -solumedrol 40mg iv q8h today and Thursday, on Thursday change to q12h, will see on Thursday, if no emergencies he will not be seen by the pulmonary service over the weekend per patient request -zithromax IV for 5 days -continue diuresis and f/u cardiology recommendations -declines any TOMASZ therapy knowing the risks DVT prophylaxis at all times Consult Acknowledgment - Thank you for your consult request.
[2018-03-05 15:20] VITALS: BP 138/62
--- NOTE | 2018-03-05 21:16 | RADIOLOGY REPORT ---
EXAMINATION: XR CHEST CLINICAL INFORMATION: CHF. Follow-up pleural effusions. COMPARISON: 03/02/2018 TECHNIQUE: 2 views of the chest were obtained. FINDINGS: Cardiac leads overlie the chest. Lungs are well expanded. No significant pleural effusion. No pneumothorax. Mild central vascular prominence again noted. No overt edema. The cardiomediastinal silhouette remains prominent. IMPRESSION: No significant pleural effusions are seen. Central vascular prominence without overt edema.
[2018-03-05 22:30] VITALS: BP 118/64
[2018-03-06 06:50] VITALS: BP 160/90
--- NOTE | 2018-03-06 07:46 | PN- Housestaff ---
Danie Yun 03/06/18 0746: Subjective Follow-up For: CHF Acute exacerbation of COPD Complaints: no complaints Tele-Events Since Last Visit: Atrial fibrillation, no new telemetry events, rate controlled. Subjective: The patient feels comfortable. However was not convinced that his dyspnea improved. Vitals remained stable overnight. He was afebrile overnight. He was seen by Dr. Worthy yesterday, who recommended IV prednisone and azithromycin. Review of Systems Constitutional: Reports: see HPI. Objective Last 24 Hrs of Vital Signs/I&O Vital Signs Date Time Temp Pulse Resp B/P B/P Pulse O2 O2 Flow FiO2 Mean Ox Delivery Rate 03/06 0850 93 Nasal 2.0L Cannula 03/06 0650 98.2 89 20 160/90 94 Nasal 2.0L Cannula 03/06 0000 Nasal 3.0L Cannula 03/05 2230 97.5 75 18 118/64 95 / 2121 83 118/64 03/05 1605 96 Nasal 3.0L Cannula 03/05 1520 98.0 77 18 138/62 98 Intake & Output 03/06 1600 03/06 0800 03/06 0000 Intake Total Output Total 650 3000 Balance -650 -3000 Number 1 Bowel Movements Output, Urine 650 3000 Patient 315 lb Weight Weight Standing Scale Measurement Method Physical Exam General Appearance: No Acute Distress Other Physical Findings: General Exam: AAOx3, No acute distress, Skin: No rashes ;HEENT: PERRLA, EOMI; Neck: Supple, No JVD, No cervical lymphadenopathy;CVS: Irregular Rate, Normal S1 ,S2, No MGR; Resp: Decreased air entry bilateral, rales b/l w/ wheezes bilatarally;Abdomen: Soft, No tenderness, Normal Bowel Sounds;Neuro: Normal Speech, Strength 5/5 b/l x 4 extremities, Sensation intact, CN III-XII NL, Reflexes 2+;Extremities: No cyanosis, chronic orthostasis changes on the skin on the LLE, with 2+ pitting edema, unna boot in place covered with liza bandage. RLE was not examined. Current Medications: Current Medications Sig/Ann-Marie Start time Last Medication Dose Route Stop Time Status Admin Amiodarone HCl 200 MG DAILY 03/03 1000 AC 03/05 PO 0804 Aspirin Buffered 81 MG DAILY 03/03 1000 AC 03/06 PO 0945 Atorvastatin Calcium 40 MG 1700 03/03 1700 AC 03/05 PO 1722 Azithromycin 500 MG DAILY 03/05 1500 AC 03/05 Dextrose/Water 250 ML IV 1723 Budesonide/ 2 PUF BID 03/02 2200 AC 03/06 Formoterol Fumarate INH 0934 Carvedilol 25 MG BID 03/02 2230 AC 03/05 PO 2121 Docusate Sodium 100 MG BID PRN 03/02 2200 AC PO Furosemide 40 MG BID 03/05 1000 AC 03/06 IV 1000 Gabapentin 600 MG Q8 03/02 2230 AC 03/06 PO 0607 Guaifenesin 600 MG BID 03/02 2200 AC 03/06 PO 0945 Hydromorphone HCl 2 MG ONCE PRN 03/04 0930 AC 03/06 PO 0853 Insulin Aspart 0 TIDAC 03/03 0800 AC 03/06 SC 0935 Insulin Detemir 20 UNITS BID 03/02 2200 AC 03/06 SC 0937 Ipratropium [place] 2.5 ML EVERY 4 HRS/AWAKE 03/03 0830 AC 03/06 INH 0851 Lisinopril 5 MG DAILY 03/03 1000 AC 03/05 PO 0803 Methylprednisolone 40 MG Q12 03/07 1000 AC IV Methylprednisolone 40 MG Q8 03/05 2200 AC 03/06 IV 03/06 2300 0607 Oxycodone HCl 10 MG TIDPRN PRN 03/02 2200 AC 03/05 PO 2120 Patient Medication 1 ED ONE ONE 03/05 1515 DC Teaching ED 03/05 1516 Polyethylene Glycol 17 GM AT BEDTIME PRN 03/02 2200 AC 03/03 PO 2239 Potassium Chloride 10 MEQ DAILY 03/03 1000 AC 03/05 PO 0803 Warfarin Sodium 10 MG COUMADIN 1700 ONE 03/06 1700 UNVr PO 03/06 1701 Warfarin Sodium 10 MG COUMADIN 1700 ONE 03/05 1700 DC 04 PO 03/05 1701 1722 Last 24 Hrs of Lab/[place] Results Last 24 Hrs of Labs/Mics: Laboratory Tests 03/06/18 0623: Anion Gap 11, Estimated GFR 51 L, BUN/Creatinine Ratio 32.1 H, PT 20.3 H, INR 1.85 H Assessment/Plan Assessment: Mr Johnson is a 62 year old gentleman w/ PMHx of atrial fibrillation on Coumadin, coronary artery disease status post PCI (2003), chronic venous insufficiency w/ stasis dermatitis ( s/p sclerotherapy), HFpEF, COPD on 1.5-2L oxygen ( PFTs not available at this time ), obstructive sleep apnea on CPAP ( noncompliance), left lower extremity DVT ( dx'ed mame 10 yrs ago), type 2 diabetes, HLD came to the hospital with a chief concern of worsening dyspnea for the last 2 weeks. He was seen recently by a lawn specialist and also his surgeon assistant and recommended him to be evaluated in the hospital. Also reported some noncompliance issues with taking diuretics. Did not have any fever, any recent infections. Etiology in this case is likely multifactorial, with pulmonary competent in- likely increased pulmonary artery pressures secondary to obstructive sleep apnea and COPD, and acute decompensated heart failure given a possible precipitating event, medication noncompliance chronic diastolic heart failure. Labs in the last 24 hrs: INR 1.85. Sodium 135, K 4.5, BUN 31, Sr Cr 1.4. Echocardiogram: This was a technically difficult and very limited study due to the patient's body habitus. 2. Aortic sclerosis is present with no obvious valvular stenosis or insufficiency. 3. Mitral leaflet thickening is present. Minimal mitral insufficiency is noted. Left atrial enlargement is present. 4. A very small pericardial effusion is present which is hemodynamically insignificant. 5. The left ventricular chamber size is normal with moderate concentric hypertrophy. Hypokinesia of the apical segments is present. The ejection fraction is approximately 50-55%. Additional images were obtained following the administration of IV contrast. 6. The right heart chambers appear to be mildly enlarged. The right ventricular systolic pressure cannot be assessed on this study. Chest x-ray- No significant pleural effusions are seen. Central vascular prominence without overt edema. Plan: - monitor the patient on telemetry -Continue daily Ins and Outs and daily weights -IV diuretics furosemide 40 mg BID, Would change to once daily today after discussing with the surgeon assistant. -supplemental oxygen as needed. Titrate as needed. Currently on 3L. -Elevate head of the bed to reduce venous return -CHF diet, 2gm salt restriction -Supervisor [facility] on medication compliance -Continue Levemir 20 units twice a day, insulin sliding scale. -Continue Symbicort, TRC nebs. -Check INR in the am. Last INR 2.49 on 4/6/18. Dose Coumadin 10mg which is home dose as per the pt. -Pain meds reassessed. Add dilaudid 2mg po daily, if needed. Housekeeping: #1 DVT prophylaxis-pharmacological #2 pain management-oxycodone, and dilaudid ( prn ). Problem List: 1. Cardiomegaly 2. Dyspnea on exertion 3. Venous stasis ulcers of both lower extremities Pain Ratin Pain Location: lower extremity Pain Goal: Pain 4 or less Pain Plan: oxycodone Tomorrow's Labs & Rationales: inr bep Sindy Loera 03/06/18 1001: Attending MD Review Statement Attending Statement Attending MD Statement: examined this patient, discuss w/resident/PA/INSPECTING AND TESTING LEAD HAND, agreed w/resident/PA/INSPECTING AND TESTING LEAD HAND, discussed with family, reviewed EMR data (avail), discussed with nursing, discussed with case mgmt, reviewed images, amended to note Attending Assessment/Plan: 62 o/m with pmh of copd on home oxygen, chf comes with worsening shortness of breath and admitted for dyspnea of multifactorial origin [facility] 2/2 acute on chronic heart failure with preserved EF and COPD with likely exacerbation on home oxgen with increased oxygen requirements on arrival to ER. Ovenight events with improvement in shortness of breath on exertion. Oxygen on 3l nc. Cr 1.4 Cardiology and pulmonary conuslted iv lasix, Iv solu-medrol taper as per pulm. Mild renal insufficiency, f/u cardiology for lasix. Discharge planning as his clinical condition improves. Pain management consult as outpatient. Anticipate dc in next 24 hrs. requesting to see pulm, o/p appointment. gi/dvt prophylaxis.
--- NOTE | 2018-03-06 08:14 | ECHOCARDIOGRAM REPORT ---
LYNETTE SMITH Age: 62 : 1955 Gender: M Exam Date: 03/03/2018 18:18 Exam Location: [place] Ht (in): 72 Wt (lb): 315 BSA: 2.76 BP: 120 / 60 Ordering Physician: Asa Rodriguez MD Referring Physician: Toño Cosby MD Technologist: Giulia White [facility] Room Number: 171 Indications: AFIB/FLUTTER Rhythm: Atrial fibrillation Technical Quality: Poor, Technically difficult study FINDINGS Left Ventricle Normal size left ventricle. Left ventricular wall thickness moderately increased. Borderline normal left ventricular ejection fraction estimated at 50-55%. [place] hypokinetic. Right Ventricle Right ventricular dilatation. Right Atrium Right atrial dilatation. Left Atrium Left atrial dilatation. Mitral Valve Mitral valve thickened. Trace mitral regurgitation. Aortic Valve Trileaflet aortic valve. Diffuse thickening (sclerosis) of the aortic valve cusps without reduced excursion. No aortic stenosis. No aortic regurgitation. Tricuspid Valve Tricuspid valve not well visualized, grossly normal. Pulmonic Valve Pulmonic valve not well visualized. Pericardium Small pericardial effusion. Great Vessels Normal size aortic root and proximal ascending aorta. CONCLUSIONS 1. This was a technically difficult and very limited study due to the patient's body habitus. 2. Aortic sclerosis is present with no obvious valvular stenosis or insufficiency. 3. Mitral leaflet thickening is present. Minimal mitral insufficiency is noted. Left atrial enlargement is present. 4. A very small pericardial effusion is present which is hemodynamically insignificant. 5. The left ventricular chamber size is normal with moderate concentric hypertrophy. Hypokinesia of the apical segments is present. The ejection fraction is approximately 50-55%. Additional images were obtained following the administration of IV contrast. 6. The right heart chambers appear to be mildly enlarged. The right ventricular systolic pressure cannot be assessed on this study. Toño Cosby M.D. (Electronically Signed) Final Date: 06 March 2018 08:13 MEASUREMENTS (Male / Female) Normal Values 2D ECHO LV Diastolic Diameter PLAX 5.2 cm 4.2 - 5.9 / 3.9 - 5.3 cm LV Systolic Diameter PLAX 3.1 cm 2.1 - 4.0 cm LV Fractional Shortening PLAX 40.4 % 25 - 46 % LV Ejection Fraction 2D Teich 70.7 % IVS Diastolic Thickness 1.6 cm LVPW Diastolic Thickness 1.6 cm LV Relative Wall Thickness 0.6 RV Internal Dim ED PLAX 3.4 cm 1.9 - 3.8 cm LVOT Diameter 2.0 cm Aortic Root Diameter 3.3 cm LA Systolic Diameter LX 4.9 cm 3.0 - 4.0 / 2.7 - 3.8 cm LA Volume 71.0 cm 18 - 58 / 22 - 52 cm Ascending Aorta Diameter 3.5 cm DOPPLER AV Peak Velocity 115.0 cm/s AV Peak Gradient 5.3 mmHg AV Mean Velocity 81.5 cm/s AV Mean Gradient 3.0 mmHg AV Velocity Time Integral 22.7 cm LVOT Peak Velocity 107.0 cm/s LVOT Peak Gradient 4.6 mmHg LVOT Mean Velocity 82.2 cm/s LVOT Mean Gradient 3.0 mmHg LVOT Velocity Time Integral 22.1 cm LVOT Stroke Volume 69.4 cm AV Area Cont Eq vti 3.1 cm AV Area Cont Eq pk 2.9 cm MV Peak Velocity 136.0 cm/s MV Peak Gradient 7.4 mmHg MV Mean Velocity 74.5 cm/s MV Mean Gradient 3.0 mmHg Mitral E Point Velocity 121.0 cm/s MV PHT Velocity 144.0 cm/s MV Deceleration [place] 545.0 cm/s MV Pressure Half Time 79.3 ms MV Area PHT 2.8 cm MV Deceleration Time 201.0 ms PV Peak Velocity 85.8 cm/s PV Peak Gradient 2.9 mmHg PV Mean Velocity 54.9 cm/s PV Mean Gradient 1.0 mmHg PV Velocity Time Integral 15.3 cm LV E' Lateral Velocity 10.9 cm/s Mitral E to LV E' Lateral Ratio 11.1 LV E' Septal Velocity 7.7 cm/s Mitral E to LV E' Septal Ratio 15.7
[2018-03-06 08:51] LABS: PT 20.3 SEC (9.4-12.5)
--- NOTE | 2018-03-06 11:44 | PN- Cardiology ---
Subjective Subjective: Shortness of breath is improving. He continues to have significant lower extremity edema. No chest pain. No palpitations. No diaphoresis. No nausea or vomiting. Objective Vital Signs and I&Os Vital Signs Date Time Temp Pulse Resp B/P B/P Pulse O2 O2 Flow FiO2 Mean Ox Delivery Rate 03/06 0850 93 Nasal 2.0L Cannula 03/06 0650 98.2 89 20 160/90 94 Nasal 2.0L Cannula 03/06 0000 Nasal 3.0L Cannula 03/05 2230 97.5 75 18 118/64 95 / 2121 83 118/64 03/05 1605 96 Nasal 3.0L Cannula 03/05 1520 98.0 77 18 138/62 98 Intake & Output 03/06 1600 03/06 0803/06 0000 03/05 1600 03/05 0803/05 0000 Intake Total 470 100 Output Total 650 3000 8857 514 2823 Balance -650 -3000 -780 -675 -3150 Intake, IV 20 Intake, Oral 450 100 Number 1 Bowel Movements Output, Urine 650 3000 2780 917 2711 Patient 315 lb Weight Weight Standing Scale Measurement Method Physical Exam: Gen: NAD HEENT: normal Lungs: clear to auscultation, normal resp. effort Heart: RRR, S1, S2, 1/6 systolic murmur Abdomen: Soft, nontender, no masses Extremities: No clubbing, cyanosis, or edema. Neuro: Alert and oriented x 3, cranial nerves intact Current Medications: Current Medications Sig/Ann-Marie Start time Last Medication Dose Route Stop Time Status Admin Amiodarone HCl 200 MG DAILY 03/03 1000 AC 03/05 PO 0804 Aspirin Buffered 81 MG DAILY 03/03 1000 AC 03/06 PO 0945 Atorvastatin Calcium 40 MG 1700 03/03 1700 AC 03/05 PO 1722 Azithromycin 500 MG DAILY 03/05 1500 AC 03/06 Dextrose/Water 250 ML IV 1030 Budesonide/ 2 PUF BID 03/02 220 AC 03/06 Formoterol Fumarate INH 0934 Carvedilol 25 MG BID 03/02 2230 AC 03/05 PO 2121 Docusate Sodium 100 MG BID PRN 03/02 2200 AC PO Furosemide 40 MG DAILY 03/07 1000 AC IV Furosemide 40 MG BID 03/05 1000 DC 03/06 IV 1000 Gabapentin 600 MG Q8 03/02 2230 AC 03/06 PO 0607 Guaifenesin 600 MG BID 03/02 2200 AC 03/06 PO 0945 Hydromorphone HCl 2 MG ONCE PRN 03/04 0930 AC 03/06 PO 0853 Insulin Aspart 0 TIDAC 03/03 0800 AC 03/06 SC 0935 Insulin Detemir 20 UNITS BID 03/02 2200 AC 03/06 SC 0937 Ipratropium [place] 2.5 ML EVERY 4 HRS/AWAKE 03/03 0830 AC 03/06 INH 0851 Lisinopril 5 MG DAILY 03/03 1000 AC 03/05 PO 0803 Methylprednisolone 40 MG Q12 03/07 1000 AC IV Methylprednisolone 40 MG Q8 03/05 2200 AC 03/06 IV 03/06 2300 0607 Oxycodone HCl 10 MG TIDPRN PRN 03/02 2200 AC 03/05 PO 2120 Patient Medication 1 ED ONE ONE 03/05 1515 DC Teaching ED 03/05 1516 Polyethylene Glycol 17 GM AT BEDTIME PRN 03/02 2200 AC 03/03 PO 2239 Potassium Chloride 10 MEQ DAILY 03/03 1000 AC 03/05 PO 0803 Warfarin Sodium 10 MG COUMADIN 1700 ONE 03/06 1700 AC PO 03/06 1701 Warfarin Sodium 10 MG COUMADIN 1700 ONE 03/05 1700 DC 03/05 PO 03/05 1701 1722 Results Last 48 Hrs of Labs/Mics: Laboratory Tests 03/06/18 0623: Anion Gap 11, Estimated GFR 51 L, BUN/Creatinine Ratio 32.1 H, PT 20.3 H, INR 1.85 H 03/05/18 0600: Anion Gap 11, Estimated GFR > 60, BUN/Creatinine Ratio 31.7 H, PT 27.4 H, INR 2.49 H Assessment/Plan Assessment/Plan Assessment: 1. Worsening shortness of breath and cough, likely multifactorial 2. Exacerbation of underlying COPD 3. Acute on chronic HFpEF 4. Worsening lower extremity edema with increased erythema and weeping left leg. 5.history of coronary artery disease 6. Bilateral lower extremity venous insufficiency with edema and stasis changes 7. Diabetes 8. History of hypertension 9. Sleep apnea Plan: * IV Lasix decreased to 40 mg daily because of increasing creatinine * Follow input and output with daily weights * Check basic metabolic profile daily * Continue other cardiac medications Continue telemetry? Yes
[2018-03-06 14:24] VITALS: BP 126/78
[2018-03-06 22:33] VITALS: BP 162/92
[2018-03-07 07:03] VITALS: BP 160/90
[2018-03-07 07:43] LABS: PT 23.6 SEC (9.4-12.5)
--- NOTE | 2018-03-07 10:39 | PN- Att Addend ---
Attending Addendum Attending Brief Note 62 o/m with pmh of copd on home oxygen, chf comes with worsening shortness of breath and admitted for dyspnea of multifactorial origin [facility] 2/2 acute on chronic heart failure with preserved EF and COPD with likely exacerbation on home oxgen with increased oxygen requirements on arrival to ER. Ovenight events with improvement in shortness of breath on exertion. Oxygen on 3l nc. Cr 1.1 Cardiology and pulmonary conuslted iv lasix, Iv solu-medrol taper as per pulm. Mild renal insufficiency with improvement, f/u cardiology for lasix. Discharge planning as his clinical condition improves. Pain management consult as outpatient. gi/dvt prophylaxis.
--- NOTE | 2018-03-07 11:33 | PN- Cardiology ---
Subjective Subjective: Shortness of breath is improving. He continues to have significant lower extremity edema. No chest pain. No palpitations. No diaphoresis. No nausea or vomiting. He complained of neuropathic pain over Objective Vital Signs and I&Os Vital Signs Date Time Temp Pulse Resp B/P B/P Pulse O2 O2 Flow FiO2 Mean Ox Delivery Rate 03/07 0958 94 Nasal 2.0L Cannula 03/07 0932 80 138/70 03/07 0931 80 138/70 03/07 0929 80 138/70 03/07 0703 98.2 102 20 160/90 97 Room Air 03/07 0000 Nasal 2.0L Cannula 03/06 2233 97.7 87 16 162/92 94 Nasal 2.0L Cannula 03/06 2157 98 162/92 03/06 2003 98 Nasal 2.0L Cannula 03/06 1645 95 Nasal 2.0L Cannula 03/06 1600 Nasal 2.0L Cannula 03/06 1424 97.9 102 16 126/78 94 Nasal 3.0L Cannula 03/06 1154 Nasal 2.0L Cannula Intake & Output 03/07 1600 03/07 0800 03/07 0000 03/06 1600 03/06 0800 03/06 0000 Intake Total 900 262 2351 Output Total 934 208 1875 650 3000 Balance -575 80 -2025 -650 -3000 Intake, Oral 824 088 6436 Number 1 1 Bowel Movements Output, Urine 964 274 9028 650 3000 Patient 318 lb 313 lb 315 lb Weight Weight Bed scale Standing Scale Measurement Method Physical Exam: Gen: NAD HEENT: normal Lungs: clear to auscultation, normal resp. effort Heart: RRR, S1, S2, 1/6 systolic murmur Abdomen: Soft, nontender, no masses Extremities: No clubbing, cyanosis, or edema. Neuro: Alert and oriented x 3, cranial nerves intact Current Medications: Current Medications Sig/Ann-Marie Start time Last Medication Dose Route Stop Time Status Admin Amiodarone HCl 200 MG DAILY 03/03 1000 AC 03/07 PO 0929 Aspirin Buffered 81 MG DAILY 03/03 1000 AC 03/07 PO 0931 Atorvastatin Calcium 40 MG 1700 03/03 1700 AC 03/06 PO 1823 Azithromycin 500 MG DAILY 03/05 1500 AC 03/07 Dextrose/Water 250 ML IV 0954 Budesonide/ 2 PUF BID 03/02 220 AC 03/07 Formoterol Fumarate INH 0933 Carvedilol 25 MG BID 03/02 2230 AC 03/07 PO 0931 Docusate Sodium 100 MG BID PRN 03/02 2200 AC PO Furosemide 40 MG DAILY 03/07 1000 AC 03/07 IV 0948 Gabapentin 600 MG Q8 03/02 2230 AC 03/07 PO 0502 Guaifenesin 600 MG BID 03/02 2200 AC 03/07 PO 0932 Hydromorphone HCl 2 MG ONCE PRN 03/04 0930 DC 03/06 PO 2157 Insulin Aspart 0 TIDAC 03/03 0800 AC 03/07 SC 0922 Insulin Detemir 20 UNITS BID 03/02 2200 AC 03/07 SC 0923 Ipratropium [place] 2.5 ML EVERY 4 HRS/AWAKE 03/03 0830 AC 03/07 INH 0955 Lisinopril 5 MG DAILY 03/03 1000 AC 03/07 PO 0932 Methylprednisolone 40 MG Q12 03/07 1000 AC 03/07 IV 0935 Methylprednisolone 40 MG Q8 03/05 2200 DC 03/06 IV 03/06 2300 2146 Oxycodone HCl 10 MG TIDPRN PRN 03/02 2200 DC 03/07 PO 0256 Oxycodone/ 2 TAB Q8P PRN 03/07 0600 AC 03/07 Acetaminophen PO 0501 Polyethylene Glycol 17 GM AT BEDTIME PRN 03/02 2200 AC 03/03 PO 2239 Potassium Chloride 10 MEQ DAILY 03/03 1000 AC 03/07 PO 0931 Warfarin Sodium 10 MG COUMADIN 1700 ONE 03/07 1700 AC PO 03/07 1701 Warfarin Sodium 10 MG COUMADIN 1700 ONE 03/06 1700 DC 03/06 PO 03/06 1701 1823 Results Last 48 Hrs of Labs/Mics: Laboratory Tests 03/07/18 0600: Anion Gap 14, Estimated GFR > 60, BUN/Creatinine Ratio 42.7 H, PT 23.6 H, INR 2.15 H 03/06/18 0623: Anion Gap 11, Estimated GFR 51 L, BUN/Creatinine Ratio 32.1 H, PT 20.3 H, INR 1.85 H Recent Imaging Studies: Chest x-ray 03/05/18: No significant pleural effusions are seen. Central vascular prominence without overt edema. Assessment/Plan Assessment/Plan Assessment: 1. Worsening shortness of breath and cough, likely multifactorial 2. Exacerbation of underlying COPD 3. Acute on chronic HFpEF 4. Worsening lower extremity edema with increased erythema and weeping left leg. 5.history of coronary artery disease 6. Bilateral lower extremity venous insufficiency with edema and stasis changes 7. Diabetes 8. History of hypertension 9. Sleep apnea Plan: * Given improvement in renal function, would increase Lasix dose back to 40 mg IV every 12 hours * Follow input and output with daily weights * Check basic metabolic profile daily * Continue other cardiac medications Continue telemetry? Yes Continue telemetry? Yes
[2018-03-07 13:45] VITALS: BP 138/70
[2018-03-07 21:07] VITALS: BP 110/60
[2018-03-07 21:09] VITALS: BP 130/80
[2018-03-08 07:01] VITALS: BP 134/86
--- NOTE | 2018-03-08 07:36 | PN- Housestaff ---
Danie Yun 03/08/18 0735: Subjective Follow-up For: CHF AE COPD Complaints: no complaints Tele-Events Since Last Visit: Afib Subjective: No new complaints. He is still concerned about dyspnea upon exertion. Vitals remained stable. Review of Systems Constitutional: Reports: see HPI. Objective Last 24 Hrs of Vital Signs/I&O Vital Signs Date Time Temp Pulse Resp B/P B/P Pulse O2 O2 Flow FiO2 Mean Ox Delivery Rate 03/08 701 97.7 90 16 134/86 97 Nasal 2.0L Cannula 03/08 0000 Nasal 2.0L Cannula 03/07 2214 80 03/07 2109 97.5 90 20 130/80 96 Nasal 2.0L Cannula 03/07 1805 95 Nasal 2.0L Cannula 03/07 1600 Nasal 2.0L Cannula 03/07 1345 98.1 97 20 138/70 94 Room Air 03/07 0958 94 Nasal 2.0L Cannula 03/07 0932 80 138/70 03/07 0931 80 138/70 03/07 0929 80 138/70 03/07 0800 Nasal 2.0L Cannula Intake & Output 03/08 0800 / 0000 03/07 1600 Intake Total 690 1300 Output Total 2099 2049 Balance -1410 -750 Intake, IV 40 250 Intake, Oral 650 1050 Number 0 Bowel Movements Output, Urine 2099 2049 Patient 319 lb Weight Weight Chair scale Measurement Method Physical Exam General Appearance: No Acute Distress Other Physical Findings: General Exam: AAOx3, No acute distress, Skin: No rashes ;HEENT: PERRLA, EOMI; Neck: Supple, No JVD, No cervical lymphadenopathy;CVS: Irregular Rate, Normal S1 ,S2, No MGR; Resp: normal air entry bilateral, rales b/l w/ wheezes bilatarally; Abdomen: Soft, No tenderness, Normal Bowel Sounds;Neuro: Normal Speech, Strength 5/5 b/l x 4 extremities, Sensation intact, CN III-XII NL, Reflexes 2+; Extremities: No cyanosis, chronic orthostasis changes on the skin on the LLE, with 2+ pitting edema, unna boot in place covered with liza bandage. RLE was not examined. New lesioin [id number] on the RLE posterior part of thigh. Current Medications: Current Medications Sig/Ann-Marie Start time Last Medication Dose Route Stop Time Status Admin Amiodarone HCl 200 MG DAILY 03/03 1000 AC 03/07 PO 0929 Aspirin Buffered 81 MG DAILY 03/03 1000 AC 03/07 PO 0931 Atorvastatin Calcium 40 MG 1700 03/03 1700 AC 03/07 PO 1752 Azithromycin 500 MG DAILY 03/05 1500 AC 03/07 Dextrose/Water 250 ML IV 0954 Budesonide/ 2 PUF BID 03/02 2200 AC 03/07 Formoterol Fumarate INH 2214 Carvedilol 25 MG BID 03/02 2230 AC 03/07 PO 2214 Docusate Sodium 100 MG BID PRN 03/02 2200 AC PO Furosemide 40 MG BID 03/07 2200 AC 03/07 IV 1758 Furosemide 40 MG DAILY 03/07 1000 DC 03/07 IV 0948 Gabapentin 600 MG Q8 03/02 2230 AC 03/08 PO 0550 Guaifenesin 600 MG BID 03/02 2200 AC 03/07 PO 2214 Insulin Aspart 0 TIDAC 03/03 0800 AC 03/07 SC 1751 Insulin Detemir 20 UNITS BID 03/02 2200 AC 03/07 SC 2213 Ipratropium [place] 2.5 ML EVERY 4 HRS/AWAKE 03/03 0830 AC 03/07 INH 2200 Lisinopril 5 MG DAILY 03/03 1000 AC 03/07 PO 0932 Methylprednisolone 40 MG Q12 03/07 1000 AC 03/07 IV 2213 Oxycodone/ 2 TAB Q8P PRN 03/07 0600 AC 03/07 Acetaminophen PO 2214 Polyethylene Glycol 17 GM AT BEDTIME PRN 03/02 2200 AC 03/07 PO 1758 Potassium Chloride 10 MEQ DAILY 03/03 1000 AC 03/07 PO 0931 Warfarin Sodium 10 MG COUMADIN 1700 ONE 03/07 1700 DC 03/07 PO 03/07 1701 1752 Last 24 Hrs of Lab/[place] Results Last 24 Hrs of Labs/Mics: Laboratory Tests 03/08/18 0622: Sodium Pending, Potassium Pending, Chloride Pending, Carbon Dioxide Pending, Anion Gap Pending, BUN Pending, Creatinine Pending, BUN/Creatinine Ratio Pending , PT Pending, INR Pending Assessment/Plan Assessment: Mr Johnson is a 62 year old gentleman w/ PMHx of atrial fibrillation on Coumadin, coronary artery disease status post PCI (2003), chronic venous insufficiency w/ stasis dermatitis ( s/p sclerotherapy), HFpEF, COPD on 1.5-2L oxygen ( PFTs not available at this time ), obstructive sleep apnea on CPAP ( noncompliance), left lower extremity DVT ( dx'ed mame 10 yrs ago), type 2 diabetes, HLD came to the hospital with a chief concern of worsening dyspnea for the last 2 weeks. He was seen recently by a intensive care medicine specialist and also his functional architect and recommended him to be evaluated in the hospital. Also reported some noncompliance issues with taking diuretics. Did not have any fever, any recent infections. Etiology in this case is likely multifactorial, with pulmonary competent in- likely increased pulmonary artery pressures secondary to obstructive sleep apnea and COPD, and acute decompensated heart failure given a possible precipitating event, medication noncompliance chronic diastolic heart failure. Labs in the last 24 hrs: INR 2.45. Sodium 134, K 5.0, BUN 57, Sr Cr 1.2. Blood sugars- 200, 294 Problem list: 1. Acute decompensated HFpEF 2. Acute exacerbation of anemia 3. Type 2 diabetes Plan: -Monitor the patient on telemetry -Continue daily Ins and Outs and daily weights -IV diuretics furosemide 40 mg BID, which would be changed to po lasix. -supplemental oxygen as needed. Titrate as needed. Currently on 2L. -Elevate head of the bed to reduce venous return -CHF diet, 2gm salt restriction -Welt Treater on medication compliance -Continue Levemir 20 units twice a day, insulin sliding scale. -Continue Symbicort, TRC nebs. Solumedrol IV has been changed to po prednisone to complete a course of 5 days of prednisone. -Check INR in the am. Last INR 2.45 on 03/08/18. Dose Coumadin 10mg which is home dose as per the pt. -Pain meds reassessed. Housekeeping: #1 DVT prophylaxis-pharmacological #2 pain management-percocet. Problem List: 1. Dyspnea on exertion 2. Venous stasis ulcers of both lower extremities 3. Acute diastolic (congestive) heart failure 4. Insulin dependent type 2 diabetes mellitus Pain Ratin Pain Location: lower extremities Pain Goal: Pain 4 or less Pain Plan: percocet Tomorrow's Labs & Rationales: Sindy West 03/08/18 1016: Attending MD Review Statement Attending Statement Attending MD Statement: examined this patient, discuss w/resident/PA/TRADEMARK PARALEGAL, agreed w/resident/PA/TRADEMARK PARALEGAL, discussed with family, reviewed EMR data (avail), discussed with nursing, discussed with case mgmt, reviewed images, amended to note Attending Assessment/Plan: 62 o/m with pmh of copd on home oxygen, chf comes with worsening shortness of breath and admitted for dyspnea of multifactorial origin [facility] 2/2 acute on chronic heart failure with preserved EF and COPD with likely exacerbation on home oxgen with increased oxygen requirements on arrival to ER. Ovenight events with improvement in shortness of breath on exertion. Oxygen on 2l nc. Cr 1.2 Cardiology and pulmonary conuslted iv lasix change to PO lasix, PO steroid taper Mild renal insufficiency with improvement. Discharge planning as his clinical condition improves. Pain management consult as outpatient. Anticipate dc tomorrow. gi/dvt prophylaxis.
[2018-03-08 08:17] LABS: PT 26.9 SEC (9.4-12.5)
--- NOTE | 2018-03-08 10:45 | Discharge Summary ---
Visit Information Visit Dates Admission Date: 03/02/18 Hospital Course Course Attending Physician: Sindy Loera MD Primary Care Physician: Patient Has No Primary Care Dr Allergies: Coded Allergies: NO KNOWN ALLERGIES (UNKNOWN 04/06/17) Discharge Instructions Medications at Discharge Discharge Medications: Stop taking the following medications: Furosemide (Lasix) 40 MG TABLET ORAL 7:30AM & 4:30PM Qty = 60 Continue taking these medications: Gabapentin (Gabapentin) 600 MG TABLET 1 Tablet ORAL THREE TIMES DAILY Comments: Last Taken:03/09/18 Time: 1322 Amiodarone (Cordarone) 200 MG TABLET 1 Tablet ORAL DAILY Comments: Last Taken: 03/09/18 Time: 0756 Fenofibrate (Fenofibrate) 160 MG TABLET 1 Tablet ORAL DAILY Comments: NOT GIVEN Potassium Chloride (Potassium Chloride) 10 MEQ CAPSULE.ER 1 Capsule ORAL DAILY Comments: Last Taken:03/09/18 Time:0756 Lisinopril (Prinivil) 5 MG TABLET 1 Tablet ORAL DAILY Comments: Last Taken 03/09/18 Time:0756 Levalbuterol HCl (Levalbuterol HCl) 1.25 MG/3 ML VIAL.NEB 1 Inhalation ORAL Every 4 hours Qty = 75 Comments: Last Taken:03/09/18 Time:1649 Polyethylene Glycol 3350 (Miralax) 119 GM POWDER 17 Gram ORAL AT BEDTIME as needed for CONSTIPATION Days = 30 Comments: Last Taken:03/09/18 Time:0756 Docusate Sodium (Colace) 100 MG CAPSULE 1 Capsule ORAL TWICE DAILY as needed for Constipation Qty = 30 Comments: NOT GIVEN Budesonide/Formoterol Fumarate (Symbicort 160-4.5 Mcg Inhaler) 10.2 GM HFA.AER.AD 2 Puff Inhale through mouth TWICE DAILY Days = 30 Comments: Last Taken:03/09/18 Time:0756 Metformin HCl (Metformin HCl) 850 MG TABLET 850 Milligram ORAL 0800,1700 Days = 30 Comments: NOT GIVEN THIS ADMISSION Insulin Detemir (Levemir Flextouch) 100 UNIT/ML (3 ML) INSULN.PEN 30 Units Inject into fatty tissue TWICE DAILY Comments: NOT GIVEN Warfarin Sodium (Coumadin) 10 MG TABLET 1 Tablet ORAL [id number] Qty = 90 Instructions: Please dose Coumadin based upon the INR. Comments: Last Taken:03/08/18 Time:530PM Carvedilol (Carvedilol) 25 MG TABLET 1 Tablet ORAL TWICE DAILY Qty = 180 Comments: Last Taken:03/09/18 TiME:0756 Atorvastatin Calcium (Atorvastatin Calcium) 40 MG TABLET 1 Tablet ORAL DAILY Qty = 90 Comments: Last Taken:03/09/18 Time: 1715 Aspirin (Ecotrin*) 81 MG TABLET. 1 Tablet ORAL DAILY Comments: Last Taken 03/09/18 Time:0756 Cyanocobalamin (Vitamin B-12) (Vitamin B-12) 2,000 MCG TABLET 1 Tablet ORAL DAILY Comments: NOT GIVEN Cholecalciferol (Vitamin D3) (Vitamin D) 2,000 UNIT TABLET 1 Tablet ORAL DAILY Comments: NOT GIVEN Oxycodone HCl (Oxycodone HCl) 10 MG TABLET 10 Milligram ORAL THREE TIMES DAILY Comments: NOT GIVEN Magnesium Chloride (Slow-Mag) 71.5 MG TABLET. 64 Milligram ORAL DAILY Qty = 30 Comments: NOT GIVEN Nystatin (Nystatin) 100,000 UNIT/GRAM CREAM..G. 1 Application On the skin TWICE DAILY Qty = 2 Comments: NOT GIVEN Guaifenesin (Guaifenesin ER) 600 MG TAB.ER.12H 600 Milligram ORAL TWICE DAILY Qty = 10 Comments: Last Taken:03/09/18 Time:0756 Start taking the following new medications: Furosemide (Furosemide) 40 MG TABLET 1.5 Tablet ORAL TWICE DAILY Qty = 90 No Refills Instructions: .. Comments: Last Taken:03/09/18 Time:171 The following medications have been changed: Old: Insulin Aspart, Recombinant (Novolog Flexpen) 100 UNIT/1 ML INSULN.PEN 0 Inject into fatty tissue BEFORE MEALS AND AT BEDTIME Qty = 1 New: Insulin Aspart, Recombinant (Novolog Flexpen) 100 UNIT/1 ML INSULN.PEN 0 Inject into fatty tissue BEFORE MEALS AND AT BEDTIME Qty = 1 Instructions: BLOOD SUGAR BEFORE MEALS UNITS LESS THAN 80 INITIATE HYPOGLYCEMIA 80-150 16 UNITS 151-200 18 UNITS 201-250 20 UNITS 251-300 22 UNITS 301-350 24 UNITS 351-400 26 UNITS 351-400 26 units call MD Above 400mg/dl call MD. Comments: NOT GIVEN AT HOSPITAL Attending MD Review Statement Documenting Attending: Sindy Loera MD Other Findings: Patient seen/examined bedside. Patient denies any new complaints. He is on 2l nc. He is completed steroid today as per pulm. He is on PO lasix bid and creatinnie stable. Patient needs to follow up at wellness clinic, appointment arranged. Patient also need to f/u wound center for chronic venous stasis of b/l lower extremity. Patient is stable for discharge today.
--- NOTE | 2018-03-08 10:53 | PN- Cardiology ---
Subjective Subjective: Edema is improving. Shortness of breath is improving. No chest pain. No diaphoresis. No nausea or vomiting. No palpitations Objective Vital Signs and I&Os Vital Signs Date Time Temp Pulse Resp B/P B/P Pulse O2 O2 Flow FiO2 Mean Ox Delivery Rate 03/08 0833 90 134/86 / 0833 90 134/86 03/08 0833 90 134/86 03/08 0800 97 Nasal 2.0L Cannula 03/08 0701 97.7 90 16 134/86 97 Nasal 2.0L Cannula 03/08 0000 Nasal 2.0L Cannula 03/07 2214 80 03/07 2109 97.5 90 20 130/80 96 Nasal 2.0L Cannula 03/07 1805 95 Nasal 2.0L Cannula 03/07 1600 Nasal 2.0L Cannula 03/07 1345 98.1 97 20 138/70 94 Room Air Intake & Output 03/08 1600 03/08 0800 / 0000 08 1600 03/07 0800 03/07 0000 Intake Total 186 347 0234 400 480 Output Total 400 2100 2049 975 400 Balance -400 100 -1410 -750 -575 80 Intake, IV 40 250 Intake, Oral 055 435 2642 400 480 Number 0 Bowel Movements Output, Urine 400 2100 2050 975 400 Patient 319 lb 318 lb Weight Weight Chair scale Bed scale Measurement Method Physical Exam: Gen: NAD HEENT: normal Lungs: Scattered rales and wheezes, normal resp. effort Heart: RRR, S1, S2, no murmurs Abdomen: Soft, nontender, no masses Extremities: 2+ edema with skin changes Neuro: Alert and oriented x 3, cranial nerves intact Current Medications: Current Medications Sig/Ann-Marie Start time Last Medication Dose Route Stop Time Status Admin Amiodarone HCl 200 MG DAILY 03/03 1000 AC 03/08 PO 0833 Aspirin Buffered 81 MG DAILY 03/03 1000 AC 03/08 PO 0833 Atorvastatin Calcium 40 MG 1700 03/03 1700 AC 03/07 PO 1752 Azithromycin 500 MG DAILY 03/05 1500 AC 03/08 Dextrose/Water 250 ML IV 0834 Budesonide/ 2 PUF BID 03/02 2200 AC 03/08 Formoterol Fumarate INH 0832 Carvedilol 25 MG BID 03/02 2230 AC 03/08 PO 0833 Docusate Sodium 100 MG BID PRN 03/02 2200 AC PO Furosemide 40 MG 7:30 AM, & 4:30 PM 03/08 1630 AC PO Furosemide 40 MG BID 03/07 2200 DC 03/08 IV 0833 Furosemide 40 MG DAILY 03/07 1000 DC 03/07 IV 0948 Gabapentin 600 MG Q8 03/02 2230 AC 03/08 PO 0550 Guaifenesin 600 MG BID 03/02 2200 AC 03/08 PO 0833 Insulin Aspart 0 TIDAC 03/03 0800 AC 03/08 SC 0831 Insulin Detemir 20 UNITS BID 03/02 2200 AC 03/08 SC 0831 Ipratropium [place] 2.5 ML EVERY 4 HRS/AWAKE 03/03 0830 AC 03/08 INH 0844 Lisinopril 5 MG DAILY 03/03 1000 AC 03/08 PO 0833 Methylprednisolone 40 MG Q12 03/07 1000 DC 03/07 IV 2213 Oxycodone/ 2 TAB Q8P PRN 03/07 0600 AC 03/08 Acetaminophen PO 0831 Polyethylene Glycol 17 GM AT BEDTIME PRN 03/02 2200 AC 03/07 PO 1758 Potassium Chloride 10 MEQ DAILY 03/03 1000 AC 03/08 PO 0832 Prednisone 40 MG DAILY 03/08 1000 AC PO Warfarin Sodium 10 MG COUMADIN 1700 03/08 1700 AC PO 03/08 2359 Warfarin Sodium 10 MG COUMADIN 1700 ONE 03/07 1700 DC 03/07 PO 03/07 1701 1752 Results Last 48 Hrs of Labs/Mics: Laboratory Tests 03/08/18 0622: Anion Gap 13, Estimated GFR > 60, BUN/Creatinine Ratio 47.5 H, PT 26.9 H, INR 2.45 H 03/07/18 0600: Anion Gap 14, Estimated GFR > 60, BUN/Creatinine Ratio 42.7 H, PT 23.6 H, INR 2.15 H Assessment/Plan Assessment/Plan Assessment: 1. Worsening shortness of breath and cough, likely multifactorial 2. Exacerbation of underlying COPD 3. Acute on chronic HFpEF 4. Worsening lower extremity edema with increased erythema and weeping left leg. 5.history of coronary artery disease 6. Bilateral lower extremity venous insufficiency with edema and stasis changes 7. Diabetes 8. History of hypertension 9. Sleep apnea Plan: * The patient is now on p.o. Lasix. I recommend increasing the dose to 60 mg p.o. every 12 hours * Monitor input and output * Check basic metabolic profile daily * Likely ready for discharge tomorrow Continue telemetry? Yes
--- NOTE | 2018-03-08 13:21 | Patient Discharge Instructions ---
Discharge Instructions General Discharge Information You were seen/treated for: - Congestive heart failure - Shortness of breath Watch for these problems: #1 chest pain, shortness of breath #2 lightheadedness, dizziness #3 worsening lower extremity swellings #4 worsening pain/redness in lower extremities. Special Instructions: -Please see your primary care provider within a week of discharge -Please see your booster pump oiler within a week of discharge -Please follow up with your transport specialist within a week of discharge. Please discuss about outpatint Pulmonary function test that can be arranged by the transport specialist. -Please dont take any Coumadin on 03/09/18. Please check INR regularly to dose Coumadin. Please resume Coumadin on 03/11/18. -Please take your medications as prescribed. -Please follow up with your CHF clinic regularly Acute Coronary Syndrome Inclusion Criteria At DC or during hospital stay patient has or had the following: ACS DIAGNOSIS No Discharge Core Measures Meds if any: Prescribed or Continued at Discharge Meds if any: NOT Prescribed or Continued at Discharge Congestive Heart Failure Inclusion Criteria At DC or during hospital stay patient has or had the following: CHF DIAGNOSIS Yes Discharge Core Measures Meds if any: Prescribed or Continued at Discharge DAVI/ARB for EF <40% Yes Meds if any: NOT Prescribed or Continued at Discharge Cerebrovascular accident Inclusion Criteria At DC or during hospital stay patient has or had the following: CVA/TIA Diagnosis No Discharge Core Measures Meds if any: Prescribed or Continued at Discharge Meds if any: NOT Prescribed or Continued at Discharge Venous thromboembolism Inclusion Criteria VTE Diagnosis No VTE Type NONE VTE Confirmed by (Test) NONE Discharge Core Measures - Per Current guidelines, there needs to be overlap - treatment for the first 5 days of Warfarin therapy. - If discharged on Warfarin prior to 5 days of - overlap therapy, the patient will need to be - assessed for post discharge needs including - *Post discharge parental anticoagulation - *Warfarin and/or parental anticoagulation education - *Follow up date to check INR post discharge At least 5 days overlap therapy as Inpatient No Meds if any: Prescribed or Continued at Discharge Note: Overlap Therapy is Warfarin and Anticoagulant Meds if any: NOT Prescribed or Continued at Discharge
[2018-03-08] MEDS ORDERED: FUROSEMIDE40 M1 PO (13:22)
[2018-03-08 14:00] VITALS: BP 130/78
--- NOTE | 2018-03-08 17:17 | PN- Pulmonary ---
Subjective HPI/Critical Care Issues: pt seen and examined little benefit from steroids leg edema persists dyspnea with exertion Objective Current Medications: Current Medications Sig/Ann-Marie Start time Last Medication Dose Route Stop Time Status Admin Amiodarone HCl 200 MG DAILY 03/03 1000 AC 03/08 PO 0833 Aspirin Buffered 81 MG DAILY 03/03 1000 AC 03/08 PO 0833 Atorvastatin Calcium 40 MG 1700 / 1700 AC 03/08 PO 1644 Azithromycin 500 MG DAILY 03/05 1500 AC 03/08 Dextrose/Water 250 ML IV 0834 Budesonide/ 2 PUF BID 03/02 2200 AC 03/08 Formoterol Fumarate INH 0832 Carvedilol 25 MG BID 03/02 2230 AC 03/08 PO 0833 Docusate Sodium 100 MG BID PRN 03/02 2200 AC PO Furosemide 40 MG 7:30 AM, & 4:30 PM 03/08 1630 DC PO Furosemide 60 MG 7:30 AM, & 4:30 PM 03/08 1630 AC 03/08 PO 1644 Furosemide 40 MG BID 03/07 2200 DC 03/08 IV 0833 Gabapentin 600 MG Q8 03/02 2230 AC 03/08 PO 1259 Guaifenesin 600 MG BID 03/02 2200 AC 03/08 PO 0833 Insulin Aspart 0 TIDAC 03/03 0800 AC 03/08 SC 1259 Insulin Detemir 20 UNITS BID 03/02 2200 AC 03/08 SC 0831 Ipratropium [place] 2.5 ML EVERY 4 HRS/AWAKE 03/03 0830 AC 03/08 INH 1621 Lisinopril 5 MG DAILY 03/03 1000 AC 03/08 PO 0833 Methylprednisolone 40 MG Q12 03/07 1000 DC 03/07 IV 2213 Oxycodone/ 2 TAB Q8P PRN 03/07 0600 AC 03/08 Acetaminophen PO 1649 Patient Medication 1 ED ONE ONE 03/08 1500 DC Teaching ED 03/08 1501 Polyethylene Glycol 17 GM AT BEDTIME PRN 03/02 2200 AC 03/07 PO 1758 Potassium Chloride 10 MEQ DAILY 03/03 1000 AC 03/08 PO 0832 Prednisone 40 MG DAILY 03/08 1000 AC 03/08 PO 1259 Warfarin Sodium 10 MG COUMADIN 1700 03/08 1700 AC 03/08 PO 03/08 2359 1644 Vital Signs & I&O Last 24 Hrs of Vitals and I&O: Vital Signs Date Time Temp Pulse Resp B/P B/P Pulse O2 O2 Flow FiO2 Mean Ox Delivery Rate 03/08 1622 95 Nasal 2.0L Cannula 03/08 1400 97.3 80 20 130/78 94 Nasal 2.0L Cannula 03/08 0833 90 134/86 03/08 0833 90 134/86 03/08 0833 90 134/86 03/08 0800 97 Nasal 2.0L Cannula 03/08 0701 97.7 90 16 134/86 97 Nasal 2.0L Cannula 03/08 0000 Nasal 2.0L Cannula 03/07 2214 80 03/07 2109 97.5 90 20 130/80 96 Nasal 2.0L Cannula 03/07 1805 95 Nasal 2.0L Cannula Intake & Output 03/08 1600 03/08 0803/08 0000 Intake Total 700 100 690 Output Total 2100 2100 Balance -1400 100 -1410 Intake, IV 250 40 Intake, Oral 450 100 650 Number 0 Bowel Movements Output, Urine 2100 2100 Patient 319 lb Weight Weight Chair scale Measurement Method Exam Other Physical Findings: Alert, awake, nasal cannula in place, heart sounds unchanged, lung exam reveals improved crackles bilaterally and leg edema persists Results Last 24 Hrs of Lab Results: Laboratory Tests 03/08/18 0622: Anion Gap 13, Estimated GFR > 60, BUN/Creatinine Ratio 47.5 H, PT 26.9 H, INR 2.45 H Impression/Plan Impression/Plan Impression/Plan: Impression 62 year old man * CHF exacerbation with underlying COPD likely with a mild exacerbation * untreated TOMASZ secondary to patient wishes knowing risks Plan -would do prednisone today and tomorrow then stop -continue to monitor glucose -diuresis, daily weights -declines TOMSAZ tx knowing risks DVT prophylaxis at all times
[2018-03-08 22:46] VITALS: BP 152/80
[2018-03-09 06:48] VITALS: BP 160/96
--- NOTE | 2018-03-09 07:31 | PN- Housestaff ---
Danie Yun 03/09/18 0725: Subjective Follow-up For: CHF Acute exacerbation of COPD Complaints: no complaints Tele-Events Since Last Visit: Afib, no tele events. Subjective: Pt was comfortable. No new complaints. Vitals stable. Plan for dc today. Discussed w/ Dr Amin, and confirmed the insulin sliding scale. Plan to dc on his home sliding scale, and have him f/u with Dr. Light as soon as possible. Review of Systems Constitutional: Reports: see HPI. Objective Last 24 Hrs of Vital Signs/I&O Vital Signs Date Time Temp Pulse Resp B/P B/P Pulse O2 O2 Flow FiO2 Mean Ox Delivery Rate 03/09 0648 98.1 93 20 160/96 93 Room Air 03/09 0000 94 Nasal 2.0L Cannula 03/08 2246 97.8 96 16 152/80 94 Nasal Cannula 03/08 2200 103 152/80 03/08 1622 95 Nasal 2.0L Cannula 03/08 1400 97.3 80 20 130/78 94 Nasal 2.0L Cannula 03/08 0833 90 134/86 03/08 0833 90 134/86 03/08 0833 90 134/86 03/08 0800 97 Nasal 2.0L Cannula Intake & Output 03/09 0800 03/09 0000 03/08 1600 Intake Total 400 650 700 Output Total 1000 3450 2100 Balance -600 -2800 -1400 Intake, IV 250 Intake, Oral 400 650 450 Output, Urine 1000 3450 2100 Patient 315 lb Weight Physical Exam General Appearance: No Acute Distress Other Physical Findings: General Exam: AAOx3, No acute distress, Skin: No rashes ;HEENT: PERRLA, EOMI; Neck: Supple, No JVD, No cervical lymphadenopathy;CVS: Irregular Rate, Normal S1 ,S2, No MGR; Resp: normal air entry bilateral, rales b/l w/ wheezes bilatarally; Abdomen: Soft, No tenderness, Normal Bowel Sounds;Neuro: Normal Speech, Strength 5/5 b/l x 4 extremities, Sensation intact, CN III-XII NL, Reflexes 2+; Extremities: No cyanosis, chronic orthostasis changes on the skin on the LLE, with 2+ pitting edema, unna boot in place covered with liza bandage. RLE was not examined. New lesioin [id number] on the RLE posterior part of thigh. Current Medications: Current Medications Sig/Ann-Marie Start time Last Medication Dose Route Stop Time Status Admin Amiodarone HCl 200 MG DAILY 03/03 1000 AC 03/08 PO 0833 Aspirin Buffered 81 MG DAILY 03/03 1000 AC 03/08 PO 0833 Atorvastatin Calcium 40 MG 1700 / 1700 AC 03/08 PO 1644 Azithromycin 500 MG DAILY 03/05 1500 AC 03/08 Dextrose/Water 250 ML IV 0834 Budesonide/ 2 PUF BID 03/02 2200 AC 03/08 Formoterol Fumarate INH 2159 Carvedilol 25 MG BID 03/02 2230 AC 03/08 PO 2200 Docusate Sodium 100 MG BID PRN 03/02 2200 AC PO Furosemide 40 MG 7:30 AM, & 4:30 PM 03/08 1630 DC PO Furosemide 60 MG 7:30 AM, & 4:30 PM 03/08 1630 AC 03/09 PO 0627 Furosemide 40 MG BID 03/07 2200 DC 03/08 IV 0833 Gabapentin 600 MG Q8 03/02 2230 AC 03/09 PO 0627 Guaifenesin 600 MG BID 03/02 2200 AC 03/08 PO 2159 Insulin Aspart 0 TIDAC 03/03 0800 AC 03/08 SC 1735 Insulin Detemir 20 UNITS BID 03/02 2200 AC 03/08 SC 2200 Ipratropium [place] 2.5 ML EVERY 4 HRS/AWAKE 03/03 0830 AC 03/08 INH 2020 Lisinopril 5 MG DAILY 03/03 1000 AC 03/08 PO 0833 Methylprednisolone 40 MG Q12 03/07 1000 DC 03/07 IV 2213 Oxycodone/ 2 TAB Q8P PRN 03/07 0600 AC 03/09 Acetaminophen PO 0015 Patient Medication 1 ED ONE ONE 03/08 1500 DC Teaching ED 03/08 1501 Polyethylene Glycol 17 GM AT BEDTIME PRN 03/02 2200 AC 03/07 PO 1758 Potassium Chloride 10 MEQ DAILY 03/03 1000 AC 03/08 PO 0832 Prednisone 40 MG DAILY 03/08 1000 AC 03/08 PO 1259 Warfarin Sodium 10 MG COUMADIN 1700 03/08 1700 DC 03/08 PO 03/08 2359 1644 Assessment/Plan Assessment: Mr Johnson is a 62 year old gentleman w/ PMHx of atrial fibrillation on Coumadin, coronary artery disease status post PCI (2003), chronic venous insufficiency w/ stasis dermatitis ( s/p sclerotherapy), HFpEF, COPD on 1.5-2L oxygen ( PFTs not available at this time ), obstructive sleep apnea on CPAP ( noncompliance), left lower extremity DVT ( dx'ed mame 10 yrs ago), type 2 diabetes, HLD came to the hospital with a chief concern of worsening dyspnea for the last 2 weeks. He was seen recently by a fabrication specialist and also his olive packer and recommended him to be evaluated in the hospital. Also reported some noncompliance issues with taking diuretics. Did not have any fever, any recent infections. Etiology in this case is likely multifactorial, with pulmonary competent in- likely increased pulmonary artery pressures secondary to obstructive sleep apnea and COPD, and acute decompensated heart failure given a possible precipitating event, medication noncompliance chronic diastolic heart failure. Labs in the last 24 hrs: INR- 4.54 ( hold warfarin today ). Blood sugars- 228,321 Problem list: 1. Acute decompensated HFpEF 2. Acute exacerbation of anemia 3. Type 2 diabetes 3. Supratherapeutic INR. Plan: -Monitor the patient on telemetry -Continue daily Ins and Outs and daily weights -Change iv furosemide to po furosemide 60mg po bid. -supplemental oxygen as needed. Titrate as needed. Currently on 2L. -Elevate head of the bed to reduce venous return -CHF diet, 2gm salt restriction -Telegraph And Teletype Operator on medication compliance -Continue Levemir 20 units twice a day, insulin sliding scale. -Continue Symbicort, TRC nebs. Solumedrol IV has been changed to po prednisone to complete a course of 5 days of prednisone. Dc today. -Pain meds reassessed. -Possible dc today. -Hold coumadin today. COmmunicated w/ the pt about his elevated INR, and holding coumadin and have INR checked as soon as possible. -Discussed w/ Dr. Amin about the insulin sliding scale. Informed Dr Loera about the plan to dc on home insulin sliding scale. Housekeeping: #1 DVT prophylaxis-pharmacological #2 pain management-percocet. Problem List: 1. Dyspnea on exertion 2. Venous stasis ulcers of both lower extremities 3. (HFpEF) heart failure with preserved ejection fraction 4. Diabetes mellitus Pain Ratin Pain Location: back and lower extremities Pain Goal: Pain 4 or less Pain Plan: percocet Tomorrow's Labs & Rationales: no labs necessary Sindy Loera 03/09/18 1102: Attending MD Review Statement Attending Statement Attending MD Statement: examined this patient, discuss w/resident/PA/LEARNING PROGRAM MANAGER, agreed w/resident/PA/LEARNING PROGRAM MANAGER, discussed with family, reviewed EMR data (avail), discussed with nursing, discussed with case mgmt, reviewed images, amended to note Attending Assessment/Plan: Patient seen/examined bedside. Patient denies any new complaints. He is on 2l nc. He is completed steroid today as per pulm. He is on PO lasix bid and creatinnie stable. Patient needs to follow up at wellness clinic, appointment arranged. Patient also need to f/u wound center for chronic venous stasis of b/l lower extremity. Patient is stable for discharge today.
[2018-03-09] MEDS ORDERED: FUROSEMIDE40 M1 PO ×3 (09:49→13:28)
[2018-03-09] MEDS ORDERED: NOVOLOG FL100 UNIT/1 SC ×3 (09:59→14:08)
--- NOTE | 2018-03-09 10:48 | PN- Cardiology ---
Subjective Subjective: Edema is definitely improved. Shortness of breath continues to improve. No chest pain. No palpitations. No nausea or vomiting. Objective Vital Signs and I&Os Vital Signs Date Time Temp Pulse Resp B/P B/P Pulse O2 O2 Flow FiO2 Mean Ox Delivery Rate 03/09 0847 95 Nasal 2.0L Cannula 03/09 0800 97 Nasal 2.0L Cannula 03/09 0756 93 160/96 03/09 0756 93 160/96 03/09 0755 93 160/96 03/09 0648 98.1 93 20 160/96 93 Room Air 03/09 0000 94 Nasal 2.0L Cannula 03/08 2246 97.8 96 16 152/80 94 Nasal Cannula 03/08 2200 103 152/80 03/08 1622 95 Nasal 2.0L Cannula 03/08 1400 97.3 80 20 130/78 94 Nasal 2.0L Cannula Intake & Output 03/09 1600 03/09 0800 03/09 0000 03/08 1600 03/08 0800 03/08 0000 Intake Total 400 650 700 100 690 Output Total 1000 3450 2100 2100 Balance -600 -2800 -1400 100 -1410 Intake, IV 250 40 Intake, Oral 400 650 450 100 650 Number 0 Bowel Movements Output, Urine 1000 3450 2100 2100 Patient 315 lb 319 lb Weight Weight Chair scale Measurement Method Physical Exam: Gen: NAD HEENT: normal Lungs: Scattered rales and wheezes, normal resp. effort Heart: RRR, S1, S2, no murmurs Abdomen: Soft, nontender, no masses Extremities: 1 - 2+ edema with skin changes Neuro: Alert and oriented x 3, cranial nerves intact Current Medications: Current Medications Sig/Ann-Marie Start time Last Medication Dose Route Stop Time Status Admin Amiodarone HCl 200 MG DAILY 03/03 1000 AC 03/09 PO 0756 Aspirin Buffered 81 MG DAILY 03/03 1000 AC 03/09 PO 0756 Atorvastatin Calcium 40 MG 1700 03/03 1700 AC 03/08 PO 1644 Azithromycin 500 MG DAILY 03/05 1500 DC 03/09 Dextrose/Water 250 ML IV 0756 Budesonide/ 2 PUF BID 03/02 2200 AC 03/09 Formoterol Fumarate INH 0758 Carvedilol 25 MG BID 03/02 2230 AC 03/09 PO 0756 Docusate Sodium 100 MG BID PRN 03/02 2200 AC PO Furosemide 40 MG 7:30 AM, & 4:30 PM 03/08 1630 DC PO Furosemide 60 MG 7:30 AM, & 4:30 PM 03/08 1630 AC 03/09 PO 0627 Gabapentin 600 MG Q8 03/02 2230 AC 03/09 PO 0627 Guaifenesin 600 MG BID 03/02 2200 AC 03/09 PO 0756 Insulin Aspart 0 TIDAC 03/03 0800 AC 03/09 SC 0757 Insulin Detemir 20 UNITS BID 03/02 2200 AC 03/09 SC 0757 Ipratropium [place] 2.5 ML EVERY 4 HRS/AWAKE 03/03 0830 AC 03/09 INH 0832 Lisinopril 5 MG DAILY 03/03 1000 AC 03/09 PO 0755 Oxycodone/ 2 TAB Q8P PRN 03/07 0600 AC 03/09 Acetaminophen PO 0758 Patient Medication 1 ED ONE ONE 03/09 0830 VT Teaching ED 03/09 0831 Patient Medication 1 ED ONE ONE 03/08 1500 VT Teaching ED 03/08 1501 Polyethylene Glycol 17 GM AT BEDTIME PRN 03/02 2200 AC 03/07 PO 1758 Potassium Chloride 10 MEQ DAILY 03/03 1000 AC 03/09 PO 0756 Prednisone 40 MG DAILY 03/08 1000 DC 03/09 PO 1005 Warfarin Sodium 10 MG COUMADIN 1700 03/08 1700 DC 03/08 PO 03/08 2359 1644 Results Last 48 Hrs of Labs/Mics: Laboratory Tests 03/09/18 0857: PT Pending, INR Pending 03/08/18 0622: Anion Gap 13, Estimated GFR > 60, BUN/Creatinine Ratio 47.5 H, PT 26.9 H, INR 2.45 H Recent Imaging Studies: CXR: No significant pleural effusions are seen. Central vascular prominence without overt edema. Assessment/Plan Assessment/Plan Assessment: 1. Worsening shortness of breath and cough, likely multifactorial 2. Exacerbation of underlying COPD 3. Acute on chronic HFpEF 4. Worsening lower extremity edema with increased erythema and weeping left leg. 5.history of coronary artery disease 6. Bilateral lower extremity venous insufficiency with edema and stasis changes 7. Diabetes 8. History of hypertension 9. Sleep apnea Plan: * Continue oral Lasix * Plan for discharge today. * Follow up with Dr. Cosby within 1 week. * Follow up with [facility] Continue telemetry? No
--- NOTE | 2018-03-09 13:55 | PN- Pulmonary ---
Subjective HPI/Critical Care Issues: pt seen and examined feeling better awaiting dc Objective Current Medications: Current Medications Sig/Ann-Marie Start time Last Medication Dose Route Stop Time Status Admin Amiodarone HCl 200 MG DAILY 03/03 1000 AC 03/09 PO 0756 Aspirin Buffered 81 MG DAILY 03/03 1000 AC 03/09 PO 0756 Atorvastatin Calcium 40 MG 1700 03/03 1700 AC 03/08 PO 1644 Azithromycin 500 MG DAILY 03/05 1500 DC 03/09 Dextrose/Water 250 ML IV 0756 Budesonide/ 2 PUF BID 03/02 2200 AC 03/09 Formoterol Fumarate INH 0758 Carvedilol 25 MG BID 03/02 2230 AC 03/09 PO 0756 Docusate Sodium 100 MG BID PRN 03/02 2200 AC PO Furosemide 60 MG 7:30 AM, & 4:30 PM 03/08 1630 AC 03/09 PO 0627 Gabapentin 600 MG Q8 03/02 2230 AC 03/09 PO 1322 Guaifenesin 600 MG BID 03/02 2200 AC 03/09 PO 0756 Insulin Aspart 0 TIDAC 03/03 0800 AC 03/09 SC 1322 Insulin Detemir 20 UNITS BID 03/02 2200 AC 03/09 SC 0757 Ipratropium [place] 2.5 ML EVERY 4 HRS/AWAKE 03/03 0830 AC 03/09 INH 1155 Lisinopril 5 MG DAILY 03/03 1000 AC 03/09 PO 0755 Oxycodone/ 2 TAB Q8P PRN 03/07 0600 AC 03/09 Acetaminophen PO 0758 Patient Medication 1 ED ONE ONE 03/09 0830 [facility] ED 03/09 0831 Patient Medication 1 ED ONE ONE 03/08 1500 [facility] ED 03/08 1501 Polyethylene Glycol 17 GM AT BEDTIME PRN 03/02 2200 AC 03/07 PO 1758 Potassium Chloride 10 MEQ DAILY 03/03 1000 AC 03/09 PO 0756 Prednisone 40 MG DAILY 03/08 1000 DC 03/09 PO 1005 Warfarin Sodium 10 MG COUMADIN 1700 03/08 1700 DC 03/08 PO 03/08 2359 1644 Vital Signs & I&O Last 24 Hrs of Vitals and I&O: Vital Signs Date Time Temp Pulse Resp B/P B/P Pulse O2 O2 Flow FiO2 Mean Ox Delivery Rate 03/09 0847 95 Nasal 2.0L Cannula 03/09 0800 97 Nasal 2.0L Cannula 03/09 0756 93 160/96 03/09 0756 93 160/96 03/09 0755 93 160/96 03/09 0648 98.1 93 20 160/96 93 Room Air 03/09 0000 94 Nasal 2.0L Cannula 03/08 2246 97.8 96 16 152/80 94 Nasal Cannula 03/08 2200 103 152/80 03/08 1622 95 Nasal 2.0L Cannula 03/08 1400 97.3 80 20 130/78 94 Nasal 2.0L Cannula Intake & Output 03/09 1600 03/09 0800 03/09 0000 Intake Total 400 650 Output Total 1000 3450 Balance -600 -2800 Intake, Oral 400 650 Output, Urine 1000 3450 Patient 315 lb Weight Exam Other Physical Findings: Alert, awake, nasal cannula in place, heart sounds unchanged, lung exam reveals improved crackles bilaterally and leg edema persists Results Last 24 Hrs of Lab Results: Laboratory Tests 03/09/18 0857: PT 50.0 *H, INR 4.52 *H Impression/Plan Impression/Plan Impression/Plan: Impression 62 year old man * CHF exacerbation with underlying COPD likely with a mild exacerbation * untreated TOMASZ secondary to patient wishes knowing risks Plan -last day of prednisone -f/u in office, outpatient PFTs -continue to monitor glucose -diuresis -declines TOMASZ tx knowing risks DVT prophylaxis at all times
[2018-03-09 14:00] VITALS: BP 118/70
== END 2018-03-09 18:58 | DRG 292 ==
LOC: ERH 15:03 → ERHI 18:41 → 1NO 18:41 → ENRESERV 19:42 → 1NO 20:43 → ENPENDDIS 03-09 14:51 → ENTRNSPT 03-09 18:38 → EDTRNSPTSTS 03-09 18:45 → EDTRNSPT 03-09 18:45 → CMPTRNSPT 03-09 18:55 → 1NO 03-09 18:58
PROVIDERS: Emergency Medicine; Internal Medicine; Internal Medicine Endocrinology, Diabetes & Metabolism
DX: I50.33 Acute on chronic diastolic (congestive) heart failure (principal); J44.1 Chronic obstructive pulmonary disease with (acute) exacerbation; Z99.81 Dependence on supplemental oxygen; Z79.01 Long term (current) use of anticoagulants; I25.10 Atherosclerotic heart disease of native coronary artery without angina pectoris; I25.2 Old myocardial infarction; Z98.61 Coronary angioplasty status; I11.0 Hypertensive heart disease with heart failure; G47.33 Obstructive sleep apnea (adult) (pediatric); I48.2 Chronic atrial fibrillation; E11.9 Type 2 diabetes mellitus without complications; Z79.82 Long term (current) use of aspirin; Z79.4 Long term (current) use of insulin; Z79.891 Long term (current) use of opiate analgesic; Z79.52 Long term (current) use of systemic steroids; I87.2 Venous insufficiency (chronic) (peripheral); Z96.653 Presence of artificial knee joint, bilateral; Z90.49 Acquired absence of other specified parts of digestive tract; Z82.49 Family history of ischemic heart disease and other diseases of the circulatory system; Z66 Do not resuscitate; I87.8 Other specified disorders of veins; Z87.891 Personal history of nicotine dependence; R60.0 Localized edema; I51.7 Cardiomegaly; R79.1 Abnormal coagulation profile
CPT/HCPCS: 1NP; 36592; 71045; 71046; 82436; 87070; 87071; 93005; 93010; 93306; J0131; J0456; J1940; J2920; J3490; J7060; Q9957

== ENCOUNTER 2018-04-13 11:17 | Inpatient (IN) | payer OTHER ==
[~2018-04-13] VITALS: Ht 182.9 cm; Wt 144.2 kg
[~2018-04-13 11:17] MED LIST changes: +FUROSEMIDE40 M1 PO
--- NOTE | 2018-04-13 11:40 | ED DYSPNEA/ASTHMA COMPLAINT ---
History of Present Illness General Chief Complaint: Dyspnea (COPD, CHF, Other) Stated Complaint: CHF; FLUID OVDERLOAD SENT FROM PCP; SOB Source: patient, old records Exam Limitations: no limitations Vital Signs & Intake/Output Vital Signs & Intake/Output Vital Signs Date Time Temp Pulse Resp B/P B/P Pulse O2 O2 Flow FiO2 Mean Ox Delivery Rate 04/13 1726 98.0 85 18 156/81 95 Room Air 04/13 1359 96 Nasal 2.0L Cannula 04/13 1203 96 Nasal 2.0L Cannula 04/13 1125 98.4 76 28 145/85 93 Nasal 1.5L Cannula Allergies Coded Allergies: NO KNOWN ALLERGIES (UNKNOWN 04/06/17) Reconcile Medications Amiodarone (Cordarone) 200 MG TABLET 1 TAB PO DAILY AFIB (Reported) Aspirin (Ecotrin*) 81 MG TABLET.DR 1 TAB PO DAILY HEART/BLOOD (Reported) Atorvastatin Calcium 40 MG TABLET 1 TAB PO DAILY CHOLESTEROL (Reported) Budesonide/Formoterol Fumarate (Symbicort 160-4.5 Mcg Inhaler) 10.2 GM HFA.AER.AD 2 PUF INH BID COPD Carvedilol 25 MG TABLET 1 TAB PO BID HEART (Reported) Cholecalciferol (Vitamin D3) (Vitamin D) 2,000 UNIT TABLET 1 TAB PO DAILY SUPPLEMENT (Reported) Cyanocobalamin (Vitamin B-12) (Vitamin B-12) 2,000 MCG TABLET 1 TAB PO DAILY SUPPLEMENT (Reported) Docusate Sodium (Colace) 100 MG CAPSULE 1 CAP PO BID PRN Constipation Fenofibrate 160 MG TABLET 1 TAB PO DAILY CHOLESTEROL (Reported) Furosemide 40 MG TABLET 1.5 TAB PO BID CHF .. Gabapentin 600 MG TABLET 1 TAB PO TID NEUROPATHY (Reported) Guaifenesin (Guaifenesin ER) 600 MG TAB.ER.12H 600 MG PO BID PRODUCTIVE COUGH Insulin Detemir (Levemir Flextouch) 100 UNIT/ML (3 ML) INSULN.PEN 30 UNITS SC BID DM (Reported) Insulin Lispro (Humalog) (Unknown Strength) VIAL (Unknown Dose) SC SEE SLIDING SCALE DIABETES (Reported) Levalbuterol HCl 1.25 MG/3 ML VIAL.NEB 1 INH PO Q4 BREATHING PROBLEMS ( Reported) Lisinopril (Prinivil) 5 MG TABLET 1 TAB PO DAILY HTN (Reported) Magnesium Chloride (Slow-Mag) 71.5 MG TABLET. 64 MG PO DAILY SUPPLEMENT Metformin HCl 850 MG TABLET 850 MG PO 0800,1700 diabetes Nystatin 100,000 UNIT/GRAM CREAM..G. 1 NIKITA TOP BID FUNGAL INFECTION Oxycodone HCl 10 MG TABLET 10 MG PO TID CHRONIC PAIN (Reported) Polyethylene Glycol 3350 (Miralax) 119 GM POWDER 17 GM PO AT BEDTIME PRN CONSTIPATION Potassium Chloride 10 MEQ CAPSULE.ER 1 CAP PO DAILY SUPPLEMENT (Reported) Warfarin Sodium (Coumadin) 10 MG TABLET 1 TAB PO SuMoTuThFrSa BLOOD THINNER ( Reported) Please dose Coumadin based upon the INR. Triage Note: C/O WORSENING SOB X 2-3 WEEKS, RECENT ADMISSION FOR CHF, COPD. FEELING WORSE. SENT FROM WOUND CENTER (DR. FAIRCHILD). DENIES CHEST PAIN. DREASSING NOTED ON R LOWER LEG. BILATERAL LOWER LEG EDEMA NOTED. Triage Nurses Notes Reviewed? yes Onset: Gradual Duration: week(s): Timing: recent history Severity: severe Activities at Onset: activity HPI: 62yo male with hx of CHF, COPD on 2L home O2, DM, CAD, a fib presents to ED complaining of CHF and COPD exacerbation x few weeks. PAtient reports dyspnea, worse with exertion. States he can barely walk a few steps without experiencing severe symptoms. Patient believes he is retaining fluid. Patient was admitted 03/02/18-03/09/18 for similar symptoms. Patient is seen at CHF clinic weekly for IV lasix. Patient also goes to wound center for ulcers related to pedal edema and diabetic neuropathy. Dr. Cosby and Dr. Worthy are the patient's specialists. He saw Dr. Cosby last week. Patient denies chest pain, abdominal pain, fevers, chills, nausea, vomiting. (Zahra WORKMAN,Bing Blackburn) Past History Travel History Traveled to [place] past 21 day No Medical History Any Pertinent Medical History? see below for history Neurological: NONE EENT: NONE Cardiovascular: AFIB, CAD, CHF, chronic venous insuff, hypertension, hyperlipidemia, myocardial infarction, STENT 2003 Respiratory: bronchitis, COPD, emphysema, obstructive sleep apnea, 02 3LDEPENDENT Gastrointestinal: NONE Hepatic: NONE Renal: NONE Musculoskeletal: degen joint disease Psychiatric: NONE Endocrine: diabetes Blood Disorders: DVT LLE Cancer(s): NONE SPECIALTY DEVELOPMENT CONSULTANT/Reproductive: NONE History of MRSA: No History of VRE: No History of CDIFF: No Influenza Vaccine: 10/14/17 Surgical History Surgical History: cholecystectomy, knee replacement (left knee), status post aborted maze procedure b/l LE venous sclerotherapy Psychosocial History Who do you live with Family Services at Home Oxygen What is your primary language Citizen [place] Tobacco Use: Quit >30 days ago ETOH Use: denies use Family History Family History, If Any: FATHER FH: heart attack FH: HTN (hypertension) MOTHER FH: heart attack FH: HTN (hypertension) FHx: stroke SISTER FH: breast cancer FH: CHF (congestive heart failure) Hx Contributory? No (Bing Anna) Review of Systems Review of Systems Constitutional: Reports: no symptoms. EENTM: Reports: no symptoms. Respiratory: Reports: see HPI. Cardiovascular: Reports: see HPI. GI: Reports: no symptoms. Genitourinary: Reports: no symptoms. Musculoskeletal: Reports: no symptoms. Skin: Reports: no symptoms. Neurological/Psychological: Reports: no symptoms. Hematologic/Endocrine: Reports: no symptoms. Immunologic/Allergic: Reports: no symptoms. All Other Systems: Reviewed and Negative (Bing Anna) Physical Exam Physical Exam General Appearance: well developed/nourished, no apparent distress, alert, awake Head: atraumatic, normal appearance Eyes: Bilateral: normal appearance. Ears, Nose, Throat: hearing grossly normal Neck: normal inspection, supple, full range of motion Respiratory: no respiratory distress, diminished breath sounds bilaterally with slight wheezes lung bases Cardiovascular: regular rate/rhythm Gastrointestinal: normal bowel sounds, soft, non-tender, no organomegaly Extremities: RLE with dressing in place LLE with 2-3+ pitting edema, deep purple pigmentation Neurologic/Psych: awake, alert, oriented x 3 Skin: intact, normal color, warm/dry Core Measures ACS in differential dx? Yes CVA/TIA Diagnosis No Sepsis Present: No Sepsis Focused Exam Completed? No (Bing Anna) Progress Differential Diagnosis: asthma, AMI, CHF, COPD, pulmonary embolism, pneumonia, pneumothorax, unstable angina Plan of Care: Orders Procedure Date/time Status Heart Healthy Diet 04/14 B Active Heart Healthy Diet 04/13 D Complete FingerStick- Glucose 04/13 1730 Active Patient Data 04/13 1709 Active ED Holding Orders 04/13 1701 Active Admit to inpatient 04/13 1701 Active Vital Signs 04/13 1701 Active Code Status 04/13 1701 Active Intake & Output 04/13 1433 Active Add-on Test (ER Only) 04/13 1209 Active MAGNESIUM 04/13 1150 Complete TROPONIN LEVEL 04/13 1137 Complete COMPREHENSIVE METABOLIC PANEL 04/13 1137 Complete CBC WITHOUT DIFFERENTIAL 04/13 1137 Complete B-TYPE NATRIURETIC PEP (BNP) 04/13 1137 Complete EKG 04/13 1119 Active Laboratory Tests 04/13/18 1150: Anion Gap 10, Estimated GFR > 60, BUN/Creatinine Ratio 31.1 H, Glucose 85, Calcium 9.7, Magnesium 1.6, Total Bilirubin 0.7, AST 17, ALT 25, Alkaline Phosphatase 72, Troponin I 0.02, Hyh-R-Dvcfbnbpspr Pept 931 H, Total Protein 6.9, Albumin 4.0, Globulin 2.9, Albumin/Globulin Ratio 1.4, CBC w Diff NO MAN DIFF REQ, RBC 4.76, MCV 83.9, MCH 27.7, MCHC 33.1, RDW 15.9 H, MPV 8.3, Gran % 77.1 H, Lymphocytes % 13.4 L, Monocytes % 6.7, Eosinophils % 2.7, Basophils % 0.1, Absolute Granulocytes 6.2, Absolute Lymphocytes 1.1 L, Absolute Monocytes 0.5, Absolute Eosinophils 0.2, Absolute Basophils 0 On evaluation the patient was sitting up in the stretcher, leaning over onto the table. Patient is speaking in cut off sentences due to his dyspnea. Chest x- ray is stable compared to previous study. Labs are within normal limits. Despite these findings patient is symptomatic going home. Patient requires IV Lasix, cardiology consult further telemetry monitoring, trend EKGs and troponins. Based on his clinical symptoms at this time the patient is unsafe being discharged home. Dr. Cohn present to see and evaluate the patient who agrees. Case management recommend full admission. Patient medicated with IV Lasix 40mg. Dr. Cohn spoke with Dr. Guajardo regarding this patient's telemetry admission. Awaiting cardiology return page. Diagnostic Imaging: Viewed by Me: Radiology Read. Discussed w/RAD: Radiology Read. Radiology Impression: PATIENT: LYNETTE SMITH PRESENT AGE: 62 PATIENT ACCOUNT NO: [id number] : 55 LOCATION: [facility] ORDERING PHYSICIAN: Bing WORKMAN SERVICE DATE: 04/13/18113 EXAM TYPE: RAD - XRY-CHEST XRAY, TWO VIEWS EXAMINATION: XR CHEST CLINICAL INFORMATION : Dyspnea. COMPARISON: None TECHNIQUE: 2 views of the chest were obtained. FINDINGS: There is mild cardiomegaly. Pulmonary vascularity is normal. The lungs are well-expanded and clear. No gross bony abnormality. IMPRESSION: Mild cardiomegaly. The lungs are clear. DICTATED BY: Thomas Man MD DATE/TIME DICTATED:04/13/181318 [employer] DIRECTOR:SONDRA DATE/TIME TRANSCRIBED:1318 CONFIDENTIAL, DO NOT COPY WITHOUT APPROPRIATE AUTHORIZATION. < Electronically signed in Other Vendor System> SIGNED BY: Thomas Man MD 1324 Initial ED EKG: atrial fibrillation rate 79bpm, LAFB, nonspecific ST changes Prior EKG: unchanged (03/02/18) (iBng Anna) Departure Departure Disposition: STILL A PATIENT Condition: Stable Clinical Impression Primary Impression: CHF (congestive heart failure) Qualifiers: Heart failure type: unspecified Heart failure chronicity: unspecified Qualified Code: I50.9 - Heart failure, unspecified Secondary Impressions: Dyspnea Qualifiers: Dyspnea type: unspecified Qualified Code: R06.00 - Dyspnea, unspecified Pedal edema Referrals: Patient Has No Primary Care Dr (PCP/Family) Departure Forms: Customer Survey General Discharge Information Admission Note Spoke With: Jodie Guajardo MD Documentation of Exam: Documentation of any treatments & extenuating circumstances including Concerns Regarding Discharge (functional status, medication knowledge or non-compliance, living conditions, etc.) that warrant an admission rather than observation: [ worsening dyspnea in setting of CHF requiring IV Lasix, cardiology consult further telemetry monitoring, trend EKGs and troponins] (Bing Anna) PA/MASTER PRINTER Co-Sign Statement Statement: ED Attending supervision documentation- [x] I saw and evaluated the patient. I have also reviewed all the pertinent lab results and diagnostic results. I agree with the findings and the plan of care as documented in the PA's/MASTER PRINTER's documentation. [] I have reviewed the ED Record and agree with the PA's/MASTER PRINTER's documentation. [] Additions or exceptions (if any) to the PAs/MASTER PRINTER's note and plan are summarized below: [] I spoke with the admitting attending and personally evaluated the patient. He has significant fluid overload. Anasarca; lower extremity edema (Ye Cohn DO) Critical Care Note Critical Care Note Critical Care Time: 30-74 min (Zahra WORKMAN,Bing Blackburn)
[2018-04-13 12:03] LABS: ABSOLUTE BASOPHIL COUNT 0 /CUMM (0.0-0.2); ABSOLUTE EOSINOPHIL COUNT 0.2 /CUMM (0.0-0.7); ABSOLUTE GRANULOCYTE CT 6.2 /CUMM (1.4-6.5); ABSOLUTE LYMPH COUNT 1.1 /CUMM (1.2-3.4); ABSOLUTE MONOCYTE COUNT 0.5 /CUMM (0.10-0.60); BASOPHIL % 0.1 % (0.0-2.0); EOSINOPHIL % 2.7 % (0-5); GRANULOCYTE % 77.1 % (42.2-75.2); MEAN CORPUSCULAR HGB 27.7 PG (27.0-31.0); MEAN CORPUSCULAR HGB CONC 33.1 G/DL (33.0-37.0); MEAN CORPUSCULAR VOLUME 83.9 FL (80.0-94.0); MEAN PLATELET VOLUME 8.3 FL (7.4-10.4); PLATELET COUNT 231 /CUMM (130-400); RBC DISTRIBUTION WIDTH 15.9 % (11.5-14.5); RED BLOOD CELL CT 4.76 /CUMM (4.70-6.10); WHITE BLOOD CELL COUNT 8.1 /CUMM (4.8-10.8)
[2018-04-13] MEDS ORDERED: HUMALOG100 UNIT/2 SC (13:23)
--- NOTE | 2018-04-13 13:24 | RADIOLOGY REPORT ---
EXAMINATION: XR CHEST CLINICAL INFORMATION: Dyspnea. COMPARISON: None TECHNIQUE: 2 views of the chest were obtained. FINDINGS: There is mild cardiomegaly. Pulmonary vascularity is normal. The lungs are well-expanded and clear. No gross bony abnormality. IMPRESSION: Mild cardiomegaly. The lungs are clear.
--- NOTE | 2018-04-13 19:06 | History & Physical ---
Jessica Choudhary 04/13/18 1906: General Information and HPI History of Present Illness: 62 year old gentleman from home with pmh significant for atrial fibrillation/ left lower extremity DVT ( dx'ed mame 10 yrs ago) on Coumadin, coronary artery disease status post PCI (2003), chronic venous insufficiency w/ stasis dermatitis ( s/p sclerotherapy), HFpEF, COPD on 1.5-2L oxygen , type 2 diabetes , HLD, recently admitted to [facility] in February 2018 for recently admitted to [facility] in February 2018 for acute decompensated congestive heart failure, coming in for evaluation of worsening shortness of breath. Patient states that since his discharge he has been experiencing worsening lower extremity swelling as well as worsening shortness of breath. He went to see his elevator mechanic apprentice Dr. Cosby on 06 April and he was sent to the CHF clinic on and was given a dose of IV Lasix. However his symptoms did not improve and went he went to see Dr. Gonsalez today for his lower extremity ulcer dressings he was recommended by Dr. Randall her to come to the ED for his dyspnea. He endorses 4 pound weight gain over 2-1/2 days. Compliant with salt restriction in his diet. At baseline sleeps on a reclined angle. Denies chest pain, palpitations, fever, cough, bowel or bladder symptoms. Allergies/Medications Allergies: Coded Allergies: NO KNOWN ALLERGIES (UNKNOWN 04/06/17) Home Med list Amiodarone (Cordarone) 200 MG TABLET 1 TAB PO DAILY AFIB (Reported) Aspirin (Ecotrin*) 81 MG TABLET.DR 1 TAB PO DAILY HEART/BLOOD (Reported) Atorvastatin Calcium 40 MG TABLET 1 TAB PO DAILY CHOLESTEROL (Reported) Budesonide/Formoterol Fumarate (Symbicort 160-4.5 Mcg Inhaler) 10.2 GM HFA.AER.AD 2 PUF INH BID COPD Carvedilol 25 MG TABLET 1 TAB PO BID HEART (Reported) Cholecalciferol (Vitamin D3) (Vitamin D) 2,000 UNIT TABLET 1 TAB PO DAILY SUPPLEMENT (Reported) Cyanocobalamin (Vitamin B-12) (Vitamin B-12) 2,000 MCG TABLET 1 TAB PO DAILY SUPPLEMENT (Reported) Docusate Sodium (Colace) 100 MG CAPSULE 1 CAP PO BID PRN Constipation Fenofibrate 160 MG TABLET 1 TAB PO DAILY CHOLESTEROL (Reported) Furosemide 40 MG TABLET 1.5 TAB PO BID CHF .. Gabapentin 600 MG TABLET 1 TAB PO TID NEUROPATHY (Reported) Guaifenesin (Guaifenesin ER) 600 MG TAB.ER.12H 600 MG PO BID PRODUCTIVE COUGH Insulin Detemir (Levemir Flextouch) 100 UNIT/ML (3 ML) INSULN.PEN 30 UNITS SC BID DM (Reported) Insulin Lispro (Humalog) (Unknown Strength) VIAL (Unknown Dose) SC SEE SLIDING SCALE DIABETES (Reported) Levalbuterol HCl 1.25 MG/3 ML VIAL.NEB 1 INH PO Q4 BREATHING PROBLEMS ( Reported) Lisinopril (Prinivil) 5 MG TABLET 1 TAB PO DAILY HTN (Reported) Magnesium Chloride (Slow-Mag) 71.5 MG TABLET.DR 64 MG PO DAILY SUPPLEMENT Metformin HCl 850 MG TABLET 850 MG PO 0800,1700 diabetes Nystatin 100,000 UNIT/GRAM CREAM..G. 1 MAME TOP BID FUNGAL INFECTION Oxycodone HCl 10 MG TABLET 10 MG PO TID CHRONIC PAIN (Reported) Polyethylene Glycol 3350 (Miralax) 119 GM POWDER 17 GM PO AT BEDTIME PRN CONSTIPATION Potassium Chloride 10 MEQ CAPSULE.ER 1 CAP PO DAILY SUPPLEMENT (Reported) Warfarin Sodium (Coumadin) 10 MG TABLET 1 TAB PO SuMoTuThFrSa BLOOD THINNER ( Reported) Please dose Coumadin based upon the INR. Compliance With Home Meds: UNKNOWN Past History Travel History Traveled to [place] past 21 day No Medical History Neurological: NONE EENT: NONE Cardiovascular: AFIB, CAD, CHF, chronic venous insuff, hypertension, hyperlipidemia, myocardial infarction, STENT 2003 Respiratory: bronchitis, COPD, emphysema, obstructive sleep apnea, 02 3LDEPENDENT Gastrointestinal: NONE Hepatic: NONE Renal: NONE Musculoskeletal: degen joint disease Psychiatric: NONE Endocrine: diabetes Blood Disorders: DVT LLE Cancer(s): NONE MACHINE FIXER/Reproductive: NONE History of MRSA: No History of VRE: No History of CDIFF: No Influenza Vaccine: 10/14/17 Surgical History Surgical History: cholecystectomy, knee replacement (left knee), status post aborted maze procedure b/l LE venous sclerotherapy Past Family/Social History Family History Relations & Conditions if any FATHER FH: heart attack FH: HTN (hypertension) MOTHER FH: heart attack FH: HTN (hypertension) FHx: stroke SISTER FH: breast cancer FH: CHF (congestive heart failure) Psychosocial History Who Do You Live With? spouse Services at Home: Oxygen Primary Language: Qatari ETOH Use: denies use Living Will? no Power of Personal Development Educator/HCP? no Functional Ability ADLs Independent: dressing, eating, toileting, bathing. Ambulation: walker (also uses cane sometimes) IADLs Independent: shopping, housework, finances, food prep, telephone, transportation , medication admin. Review of Systems Review of Systems Constitutional: Denies: chills, diaphoresis, fever, malaise, weakness, unexplained weight loss. Cardiovascular: Denies: chest pain, edema, orthopena, palpitations, peripheral edema, syncope. Respiratory: Denies: cough, hemoptysis, orthopnea, short of breath, sputum production, stridor, wheezing. Exam & Diagnostic Data Last 24 Hrs of Vital Signs/I&O Vital Signs Date Time Temp Pulse Resp B/P B/P Pulse O2 O2 Flow FiO2 Mean Ox Delivery Rate 04/13 2055 97.9 84 138/74 93 Nasal 2.0L Cannula 04/13 1726 98.0 85 18 156/81 95 Room Air 04/13 1359 96 Nasal 2.0L Cannula 04/13 1203 96 Nasal 2.0L Cannula 04/13 1125 98.4 76 28 145/85 93 Nasal 1.5L Cannula Intake & Output 04/13 1600 04/13 0800 04/13 0000 Intake Total Output Total Balance Patient 315 lb Weight Weight Reported by Patient Measurement Method Physical Exam General Appearance Alert, Oriented X3, Mild Distress HEENT Atraumatic, PERRLA Neck Supple, +2 Carotid Pulse wo Bruit Cardiovascular Normal S1, Normal S2, irreg regular Lungs b/l scattered wheezes Abdomen Normal Bowel Sounds, No Tenderness, distended Extremities dressing on right leg (pt refused to allow examination. 3+ pitting edema noted on left LE with chronic venous changes. Diagnostic Data EKG Results atrial fibrillation, QTc 473 CXR Results SERVICE DATE: 04/13/18 EXAM TYPE: RAD - XRY-CHEST XRAY, TWO VIEWS FINDINGS: There is mild cardiomegaly. Pulmonary vascularity is normal. The lungs are well-expanded and clear. No gross bony abnormality. IMPRESSION: Mild cardiomegaly. The lungs are clear. Assessment/Plan Assessment: 62 year old gentleman from home with pmh significant for atrial fibrillation/ left lower extremity DVT ( dx'ed mame 10 yrs ago) on Coumadin, coronary artery disease status post PCI (2003), chronic venous insufficiency w/ stasis dermatitis ( s/p sclerotherapy), HFpEF, COPD on 1.5-2L oxygen , type 2 diabetes , HLD, recently admitted to [facility] in February 2018 for recently admitted to [facility] in February 2018 for acute decompensated congestive heart failure, coming in for evaluation of worsening shortness of breath. problem list: Acute on chronic heart failure with preserved ejection fraction Acute on chronic COPD exacerbation Diabetes mellitus Hypertension Coronary artery disease Atrial fibrillation DVT plan: Admit to telemetry Continuous telemetry monitoring,Strict I's and O's, Daily weights Last Echocardiogram done February 2018 showed Borderline normal left ventricular ejection fraction estimated at 50-55%. [place] hypokinetic. 1 time 40 mg IV Lasix given in ED, will reassess fluid status in the morning and continue diuresis cardio consult in am Continue supplemental 02 with nebs, will give one time IV 125 solumedrol Pulmonology consult in am Hold oral hypoglycemics, sliding scale insulin, will restart long acting insulin tommorrow pending accuchecks, will check INR and dose coumadin per INR will Continue rest of his home medications diabetic diet dvt ppx with sc lovenox pending INR full code As Ranked By This Provider Problem List: 1. (HFpEF) heart failure with preserved ejection fraction 2. Diabetes mellitus Core Measures/Misc (08/16) Acute Coronary Syndrome ACS Diagnosis: No Congestive Heart Failure Congestive Heart Failure Diagnosis Yes Cerebrovascular Accident CVA/TIA Diagnosis: No VTE (View Protocol) VTE Risk Factors Age>40 No Mechanical VTE Prophylaxis d/t Physical Contraindication No VTE Pharm Prophylaxis d/t NA PharmProphylax ordered Sepsis (View protocol) Sepsis Present: No Jodie Guajardo MD 04/13/18 1950: Attending MD Review Statement Attending Statement Attending MD Statement: examined this patient, discuss w/resident/PA/GLOVE PRESSER, agreed w/resident/PA/GLOVE PRESSER, reviewed EMR data (avail) Attending Assessment/Plan: 62M PMH CHF, COPD on 2L home O2, DM, CAD, a fib presenting with several weeks of SOB, recently seen in CHF clinic and given IV Lasix with no improvement, found to be fluid overloaded here, wheezing on exam, EKG no changes. Will admit to telemetry, IV diuresis, cardiology consult, I/O, continue home meds, Prednisone with rapid taper, DVT PPx
[2018-04-13 20:55] VITALS: BP 138/74
[2018-04-13 23:10] VITALS: BP 138/74
[2018-04-13 23:10] LABS: PT 63.4 SEC (9.4-12.5)
[2018-04-14 06:38] VITALS: BP 142/76
--- NOTE | 2018-04-14 07:08 | PN- Housestaff ---
Ishaan VILLASENOR,Ivan 04/14/18 0707: Subjective Follow-up For: Acute hypoxic respiratory failure, multifactorial Tele-Events Since Last Visit: Jose lowe with HR 70s90s Subjective: Patient was seen and examined at bedside. He was sitting upright in a chair. He states that he cannot breathe while he is in bed. He was mildly uncomfortable shortness of breath. He also complains of worsening lower extremity edema. He also has a productive cough with greenish sputum. he expresses frustration and has condition. He denies any chest pain, chest discomfort, palpitations, nausea, vomiting, fever, chills. Review of Systems Constitutional: Reports: see HPI. Objective Last 24 Hrs of Vital Signs/I&O Vital Signs Date Time Temp Pulse Resp B/P B/P Pulse O2 O2 Flow FiO2 Mean Ox Delivery Rate 04/14 0638 97.7 89 20 142/76 93 Nasal Cannula 04/13 2310 97.9 84 26 138/74 93 Nasal 2.0L Cannula 04/13 2204 Nasal 2.0L Cannula 04/13 2100 93 Nasal 2.0L Cannula 04/13 2055 97.9 84 138/74 93 Nasal 2.0L Cannula 04/13 1726 98.0 85 18 156/81 95 Room Air 04/13 1359 96 Nasal 2.0L Cannula 04/13 1203 96 Nasal 2.0L Cannula 04/13 1125 98.4 76 28 145/85 93 Nasal 1.5L Cannula Intake & Output 04/14 0800 04/14 0000 04/13 1600 Intake Total 220 880 Output Total 300 2080 Balance -80 -1200 Intake, Oral 220 880 Output, Urine 300 2080 Patient 302 lb 310 lb 315 lb Weight Weight Standing Scale Estimated Reported by Patient Measurement Method Physical Exam General Appearance: Alert, Oriented X3, Cooperative, No Acute Distress Cardiovascular: Regular Rate, Normal S1, Normal S2, irregularly irregular rhythm Lungs: scant wheezing, diffuse rhonchi Abdomen: Normal Bowel Sounds, Soft, No Tenderness Current Medications: Current Medications Sig/Ann-[place] Start time Last Medication Dose Route Stop Time Status Admin Albuterol Sulfate 3 ML EVERY 4 HRS/AWAKE 04/14 0800 AC 04/14 INH 0225 Albuterol Sulfate 3 ML ONCE ONE 04/13 1400 DC 04/13 INH 04/13 1401 1358 Amiodarone HCl 200 MG DAILY 04/14 0900 AC PO Aspirin Buffered 81 MG DAILY 04/14 09 AC PO Atorvastatin Calcium 40 MG 1700 04/14 1700 AC PO Budesonide/ 2 PUF BID 04/14 09 AC 04/14 Formoterol Fumarate INH 0232 Carvedilol 25 MG BID 04/14 09 AC PO Cyanocobalamin 2,000 MCG DAILY 04/14 09 AC PO Docusate Sodium 100 MG BID PRN 04/135 AC PO Enoxaparin Sodium 40 MG ONCE ONE 04/13 2100 DC SC 04/13 2101 Fenofibrate 145 MG DAILY 04/14 09 AC PO Furosemide 40 MG DAILY 04/14 09 CAN IV Furosemide 40 MG DAILY 04/14 09 AC IV Furosemide 0 .STK-MED ONE 04/13 1538 DC IV Furosemide 40 MG ONCE ONE 04/13 1530 DC 04/13 IV 04/13 1531 1537 Gabapentin 600 MG Q8 04/14 06 AC 04/14 PO 0542 Insulin Aspart 0 TIDAC 04/14 08 AC SC Ipratropium [place] 2.5 ML ONCE ONE 04/13 1400 DC 04/13 INH 04/13 1401 1358 Lisinopril 5 MG DAILY 04/14 09 AC PO Magnesium Oxide 400 MG ONE ONE 04/14 0115 DC 04/14 PO 04/14 0116 0202 Methylprednisolone 125 MG ONCE ONE 04/13 2100 DC 04/13 IV 04/13 2101 2320 Morphine Sulfate 0 .STK-MED ONE 04/13 1720 DC .ROUTE Morphine Sulfate 6 MG ONCE ONE 04/13 1700 DC 04/13 IV 04/13 1701 1715 Oxycodone/ 2 TAB TIDPRN PRN 04/13 2300 AC 04/13 Acetaminophen PO 2313 Polyethylene Glycol 17 GM DAILY 04/14 09 AC PO Senna/Docusate Sodium 2 TAB DAILY NEEDED PRN 04/14 0115 AC PO Last 24 Hrs of Lab/[place] Results Last 24 Hrs of Labs/Mics: Laboratory Tests 04/14/18 06: Anion Gap 13, Estimated GFR > 60, BUN/Creatinine Ratio 31.1 H, PT 49.6 *H, INR 4.48 *H 04/13/18 2200: Troponin I 0.02, PT 63.4 *H, INR 5.71 *H Microbiology 04/14 730 LOWER RESP: Respiratory Culture - RES 04/14 730 LOWER RESP: Gram Stain - RES Assessment/Plan Assessment: Patient is a 62-year-old male with a PMH significant for A. fib, left lower extremity DVT, CAD status post PCI, HLD, chronic venous insufficiency, PVD on 2 L O2 baseline, type 2 diabetes mellitus who presented to [facility] complaining of worsening shortness of breath, she was referred into the ED by Dr. Zhu from the [facility]. #acute hypoxic respiratory failure, multifactorial Patient complains of productive cough with an extensive history of COPD. He has a history of HFpEF, and although his lower extremity edema is worsening, there are no crackles on lung auscultation, and his chest x-ray does not show signs of fluid overload. Patient was recommended to stay in bed or at least keep his legs elevated in the recliner, he states that he is unable to breathe while doing that -Continue diuresis with IV Lasix 40 mg twice daily, will increase if not in negative fluid balance -Continue TRC/nebs, start Mucinex twice daily #Supratherapeutic INR -We will continue to hold Coumadin and monitor INR, no need to reverse at this time #Chronic medical problems including A. fib, CAD, DM, HTN -We will continue home medical regimen, holding Coumadin, holding oral hypoglycemics, Accu-Cheks 3 times daily before meals and at bedtime, sliding NovoLog sliding Diet: Diabetic, sodium restriction DVT prophylaxis: Supratherapeutic INR, Alps CODE STATUS: Full code Problem List: 1. Dyspnea on exertion 2. Venous stasis ulcers of both lower extremities 3. CHF (congestive heart failure) 4. COPD exacerbation Pain Ratin Pain Location: none Pain Goal: Remain pain free Pain Plan: pain pathway Tomorrow's Labs & Rationales: cbc, bep Jodie Guajardo MD 04/14/18 1127: Attending MD Review Statement Attending Statement Attending MD Statement: examined this patient, discuss w/resident/PA/IT SENIOR SOFTWARE ENGINEER JAVA, agreed w/resident/PA/IT SENIOR SOFTWARE ENGINEER JAVA, reviewed EMR data (avail) Attending Assessment/Plan: 62M PMH CHF, COPD on 2L home O2, DM, CAD, a fib presenting with several weeks of SOB, recently seen in CHF clinic and given IV Lasix with no improvement, found to be fluid overloaded here, wheezing on exam, EKG no changes. Patient is still dyspneic at rest today and severely dyspneic with minimal exertion. His wheezing has improved. Leg edema is unchanged. 1. Acute on chronic systolic CHF 2. COPD Exacerbation Plan - Continue on telemetry - Continue IV Lasix - I/O, daily weights - Follow cardiology recommendations - Continue Solumedrol, switch to Prednisone tomorrow - Nebulizer treatments - Leg compression and elevation - Continue home medications - DVT PPx
[2018-04-14 08:52] LABS: PT 49.6 SEC (9.4-12.5)
--- NOTE | 2018-04-14 13:59 | Cons- Cardiology ---
General Information and HPI Consulting Request Date of Consult: 04/14/18 Requested By: Jodie Guajardo MD Reason for Consult: Lower extremity edema, shortness of breath, hypoxia, COPD,HFpEF, cor pulmonale Source of Information: patient, old records Exam Limitations: no limitations History of Present Illness: The patient is a 62-year-old male, well-known to me, who was readmitted to the hospital now with lower extremity edema and worsening shortness of breath/ hypoxia. Patient has a long past medical history which includes atrial for ablation, chronic venous insufficiency with lower extremity edema and stasis changes with stasis dermatitis, coronary disease, status post angioplasty and stent in 2003, COPD, sleep apnea, type 2 diabetes, hyperlipidemia, pulmonary hypertension, etc. The patient was just discharged from [facility] last week. He was sent to the CHF clinic for further IV Lasix and closer monitoring. He was seen by me in the office this past week prior to his CHF clinic visit. In the clinic he was given extra IV Lasix. The patient saw Dr. Gonsalez for his lower extremity ulcer dressing changes and was sent to the emergency room by Dr. Gonsalez at that time. The patient's primary complaint continues to be his lower extremity edema with intermittent weeping, as well as his persistent shortness of breath with hypoxia on ambulation and production of thick copious green sputum. No other cardiac symptoms noted. Allergies/Medications Allergies: Coded Allergies: NO KNOWN ALLERGIES (UNKNOWN 04/06/17) Home Med List: Amiodarone (Cordarone) 200 MG TABLET 1 TAB PO DAILY AFIB (Reported) Aspirin (Ecotrin*) 81 MG TABLET.DR 1 TAB PO DAILY HEART/BLOOD (Reported) Atorvastatin Calcium 40 MG TABLET 1 TAB PO DAILY CHOLESTEROL (Reported) Budesonide/Formoterol Fumarate (Symbicort 160-4.5 Mcg Inhaler) 10.2 GM HFA.AER.AD 2 PUF INH BID COPD Carvedilol 25 MG TABLET 1 TAB PO BID HEART (Reported) Cholecalciferol (Vitamin D3) (Vitamin D) 2,000 UNIT TABLET 1 TAB PO DAILY SUPPLEMENT (Reported) Cyanocobalamin (Vitamin B-12) (Vitamin B-12) 2,000 MCG TABLET 1 TAB PO DAILY SUPPLEMENT (Reported) Docusate Sodium (Colace) 100 MG CAPSULE 1 CAP PO BID PRN Constipation Fenofibrate 160 MG TABLET 1 TAB PO DAILY CHOLESTEROL (Reported) Furosemide 40 MG TABLET 1.5 TAB PO BID CHF .. Gabapentin 600 MG TABLET 1 TAB PO TID NEUROPATHY (Reported) Guaifenesin (Guaifenesin ER) 600 MG TAB.ER.12H 600 MG PO BID PRODUCTIVE COUGH Insulin Detemir (Levemir Flextouch) 100 UNIT/ML (3 ML) INSULN.PEN 30 UNITS SC BID DM (Reported) Insulin Lispro (Humalog) (Unknown Strength) VIAL (Unknown Dose) SC SEE SLIDING SCALE DIABETES (Reported) Levalbuterol HCl 1.25 MG/3 ML VIAL.NEB 1 INH PO Q4 BREATHING PROBLEMS ( Reported) Lisinopril (Prinivil) 5 MG TABLET 1 TAB PO DAILY HTN (Reported) Magnesium Chloride (Slow-Mag) 71.5 MG TABLET.DR 64 MG PO DAILY SUPPLEMENT Metformin HCl 850 MG TABLET 850 MG PO 0800,1700 diabetes Nystatin 100,000 UNIT/GRAM CREAM..G. 1 NIKITA TOP BID FUNGAL INFECTION Oxycodone HCl 10 MG TABLET 10 MG PO TID CHRONIC PAIN (Reported) Polyethylene Glycol 3350 (Miralax) 119 GM POWDER 17 GM PO AT BEDTIME PRN CONSTIPATION Potassium Chloride 10 MEQ CAPSULE.ER 1 CAP PO DAILY SUPPLEMENT (Reported) Warfarin Sodium (Coumadin) 10 MG TABLET 1 TAB PO SuMoTuThFrSa BLOOD THINNER ( Reported) Please dose Coumadin based upon the INR. Current Medications: Current Medications Sig/Ann-Marie Start time Last Medication Dose Route Stop Time Status Admin Albuterol Sulfate 3 ML EVERY 4 HRS/AWAKE 04/14 0800 AC 04/14 INH 1134 Albuterol Sulfate 3 ML ONCE ONE 04/13 1400 DC 04/13 INH 04/13 1401 1358 Amiodarone HCl 200 MG DAILY 04/14 09 AC 04/14 PO 0825 Aspirin Buffered 81 MG DAILY 04/14 0900 AC 04/14 PO 0825 Atorvastatin Calcium 40 MG 1700 04/14 1700 AC PO Budesonide/ 2 PUF BID 04/14 09 AC 04/14 Formoterol Fumarate INH 0232 Carvedilol 25 MG BID 04/14 0900 AC 04/14 PO 0825 Cyanocobalamin 2,000 MCG DAILY 04/14 0900 AC 04/14 PO 0825 Docusate Sodium 100 MG BID PRN 04/135 AC PO Enoxaparin Sodium 40 MG ONCE ONE 04/13 2100 DC SC 04/13 2101 Fenofibrate 145 MG DAILY 04/14 0900 AC 04/14 PO 0825 Furosemide 40 MG DAILY 04/14 0900 CAN IV Furosemide 40 MG DAILY 04/14 09 AC 04/14 IV 0828 Furosemide 0 .STK-MED ONE 04/13 1538 DC IV Furosemide 40 MG ONCE ONE 04/13 1530 DC 04/13 IV 04/13 1531 1537 Gabapentin 600 MG Q8 04/14 06 AC 04/14 PO 0542 Insulin Aspart 0 TIDAC 04/14 0800 AC 04/14 SC 1237 Ipratropium Wedron 2.5 ML ONCE ONE 04/13 1400 DC 04/13 INH 04/13 1401 1358 Lisinopril 5 MG DAILY 04/14 09 AC 04/14 PO 0825 Magnesium Oxide 400 MG ONE ONE 04/14 0115 DC 04/14 PO 04/14 0116 0202 Methylprednisolone 125 MG ONCE ONE 04/13 2100 DC 04/13 IV 04/13 2101 2320 Morphine Sulfate 0 .STK-MED ONE 04/13 1720 DC .ROUTE Morphine Sulfate 6 MG ONCE ONE 04/13 1700 DC 04/13 IV 04/13 1701 1715 Oxycodone/ 2 TAB TIDPRN PRN 04/13 2300 AC 04/14 Acetaminophen PO 0825 Polyethylene Glycol 17 GM DAILY 04/14 09 AC 04/14 PO 0825 Prednisone 40 MG DAILY 04/14 09 AC 04/14 PO 1045 Senna/Docusate Sodium 2 TAB DAILY NEEDED PRN 04/14 0115 AC 04/14 PO 0825 Past History Travel History Traveled to [place] past 21 day No Medical History Neurological: NONE EENT: NONE Cardiovascular: AFIB, CAD, CHF, chronic venous insuff, hypertension, hyperlipidemia, myocardial infarction, STENT 2003 Respiratory: bronchitis, COPD, emphysema, obstructive sleep apnea, 02 3LDEPENDENT Gastrointestinal: NONE Hepatic: NONE Renal: NONE Musculoskeletal: degen joint disease Psychiatric: NONE Endocrine: diabetes Blood Disorders: DVT LLE Cancer(s): NONE 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 spouse Services at Home: Oxygen Primary Language: Ecuadorean Smoking Status: Former Smoker ETOH Use: denies use Living Will? no Power of Table Inspector/HCP? no Functional Ability ADLs Independent: dressing, eating, toileting, bathing. Ambulation: walker (also uses cane sometimes) IADLs Independent: shopping, housework, finances, food prep, telephone, transportation , medication admin. Exam & Diagnostic Data Vital Signs and I&O Vital Signs Date Time Temp Pulse Resp B/P B/P Pulse O2 O2 Flow FiO2 Mean Ox Delivery Rate 04/14 0825 89 142/76 04/14 0825 89 142/76 04/14 0800 96 Nasal 2.0L Cannula 04/14 0752 95 Room Air Room Air 04/14 0638 97.7 89 20 142/76 93 Nasal Cannula 04/13 2310 97.9 84 26 138/74 93 Nasal 2.0L Cannula 04/13 2204 Nasal 2.0L Cannula 04/13 2100 93 Nasal 2.0L Cannula 04/13 2055 97.9 84 138/74 93 Nasal 2.0L Cannula 04/13 1726 98.0 85 18 156/81 95 Room Air Intake & Output 04/14 1600 04/14 0800 04/14 0000 04/13 1600 04/13 0800 04/13 0000 Intake Total 220 880 Output Total 300 2080 Balance -80 -1200 Intake, Oral 220 880 Output, Urine 300 2080 Patient 302 lb 310 lb 315 lb Weight Weight Standing Scale Estimated Reported by Patient Measurement Method Physical Exam: General Appearance: well developed/nourished, overweight white male, alert, awake, oriented Head: normal HEENT: Normal Neck: supple, JVP elevated 3 cm at 45, carotid upstrokes normal bilaterally, no masses or thyromegaly Respiratory: chest non-tender, diffuse bilateral rhonchi with scattered wheezing Cardiovascular: regular rate/rhythm, normal S1, S2, 1-2/6 systolic murmur Abdomen: normal bowel sounds, soft, non-tender Extremities: normal inspection, support stocking in place on the left leg, Willie wrap right leg, bilateral edema present. Venous stasis changes left side with stasis dermatitis Vascular: Pulses are 2+ and equal bilaterally Neurologic: Grossly normal/nonfocal Labs/Matheus Results: Laboratory Tests 04/14 04/13 04/13 0605 2200 1150 Chemistry Sodium (137 - 145 mmol/L) 137 141 Potassium (3.5 - 5.1 mmol/L) 4.5 4.8 Chloride (98 - 107 mmol/L) 95 L 96 L Carbon Dioxide (22 - 30 mmol/L) 29 36 H Anion Gap (5 - 16) 13 10 BUN (9 - 20 mg/dL) 28 H 28 H Creatinine (0.7 - 1.2 mg/dL) 0.9 0.9 Estimated GFR (>60 ml/min) > 60 > 60 BUN/Creatinine Ratio (7 - 25 %) 31.1 H 31.1 H Glucose (65 - 99 mg/dL) 85 Calcium (8.4 - 10.2 mg/dL) 9.7 Magnesium (1.6 - 2.3 mg/dL) 1.6 Total Bilirubin (0.2 - 1.3 mg/dL) 0.7 AST (17 - 59 U/L) 17 ALT (21 - 72 U/L) 25 Alkaline Phosphatase (< 127 U/L) 72 Troponin I (<0.11 ng/ml) 0.02 0.02 [id number] Pept (<125 pg/mL) 931 H Total Protein (6.3 - 8.2 g/dL) 6.9 Albumin (3.5 - 5.0 g/dL) 4.0 Globulin (1.9 - 4.2 gm/dL) 2.9 Albumin/Globulin Ratio (1.1 - 2.2 %) 1.4 Coagulation PT (9.4 - 12.5 SEC) 49.6 *H 63.4 *H INR (0.90 - 1.17) 4.48 *H 5.71 *H Hematology CBC w Diff NO MAN DIFF REQ WBC (4.8 - 10.8 /CUMM) 8.1 RBC (4.70 - 6.10 /CUMM) 4.76 Hgb (14.0 - 18.0 G/DL) 13.2 L Hct (42 - 52 %) 40.0 L MCV (80.0 - 94.0 FL) 83.9 MCH (27.0 - 31.0 PG) 27.7 MCHC (33.0 - 37.0 G/DL) 33.1 RDW (11.5 - 14.5 %) 15.9 H Plt Count (130 - 400 /CUMM) 231 MPV (7.4 - 10.4 FL) 8.3 Gran % (42.2 - 75.2 %) 77.1 H Lymphocytes % (20.5 - 51.1 %) 13.4 L Monocytes % (1.7 - 9.3 %) 6.7 Eosinophils % (0 - 5 %) 2.7 Basophils % (0.0 - 2.0 %) 0.1 Absolute Granulocytes (1.4 - 6.5 /CUMM) 6.2 Absolute Lymphocytes (1.2 - 3.4 /CUMM) 1.1 L Absolute Monocytes (0.10 - 0.60 /CUMM) 0.5 Absolute Eosinophils (0.0 - 0.7 /CUMM) 0.2 Absolute Basophils (0.0 - 0.2 /CUMM) 0 Diagnostic Data EKG Results Unchanged CXR Results FINDINGS: There is mild cardiomegaly. Pulmonary vascularity is normal. The lungs are well-expanded and clear. No gross bony abnormality. IMPRESSION: Mild cardiomegaly. The lungs are clear. Assessment/Plan Assessment/Plan Assessment: 1. Lower extremity edema related to venous insufficiency, pulmonary hypertension, with stasis dermatitis and venous stasis changes 2. Acute on chronic COPD exacerbation with production of copious amounts of sputum 3. Acute on chronic HFpEF with probable cor pulmonale and right heart failure 4. Diabetes 5. Hypertension 6. History of coronary artery disease, status post stenting; mild cardio myopathy of coronary artery disease with ejection fraction of 50-55% on last echo 03/17 7. Peripheral arterial disease 8. Atrial fibrillation 9. Prior history of DVT 10. Supratherapeutic INR Recommendations: -Telemetry monitoring -IV Lasix diuresis with close monitoring of intakes, outputs, daily weights. Continue Lasix at at least 40 mg IV twice daily. Depending on diuresis, consider increasing to 60 mg twice daily. -Continue Willie wraps for lower extremities with leg elevation, sodium restriction , etc. -Consider further pulmonary input to help assist patient with mobilization of his thick copious sputum which significantly contributes to his shortness of breath and hypoxia -No need to repeat echocardiogram at the present time Consult Acknowledgment - Thank you for your consult request.
[2018-04-14 14:17] VITALS: BP 122/66
[2018-04-14 23:00] VITALS: BP 122/56
[2018-04-15 06:38] VITALS: BP 138/70
--- NOTE | 2018-04-15 07:05 | PN- Housestaff ---
Ishaan VILLASENOR,Ivan 04/15/18 0704: Subjective Follow-up For: Dyspnea, multifactorial Uncontrolled diabetes mellitus Tele-Events Since Last Visit: Jose lowe with HR 60s80s Subjective: Patient was seen and examined at bedside. Overnight he states that he attempted to sleep with his legs elevated and woke up gasping for air. He reports mild improvement in his cough, still bringing up greenish sputum. He continues to have lower extremity edema, and states that he feels that his urine output is low compared to previously being diuresed with IV Lasix. When he comes off of the oxygen he experiences dyspnea with minimal exertion. He denies any chest pain, chest discomfort, nausea, vomiting, fever, chills. Review of Systems Constitutional: Reports: see HPI. Objective Last 24 Hrs of Vital Signs/I&O Vital Signs Date Time Temp Pulse Resp B/P B/P Pulse O2 O2 Flow FiO2 Mean Ox Delivery Rate 04/15 0638 97.9 73 20 138/70 95 Room Air 04/14 2300 98.2 88 18 122/56 94 Nasal 2.0L Cannula 04/14 2131 Nasal 2.0L Cannula 04/14 2028 87 122/56 04/14 1611 92 Nasal 2.0L Cannula 04/14 1600 96 Nasal 2.0L Cannula 04/14 1417 97.5 84 22 122/66 90 Nasal 2.0L Cannula 04/14 0825 89 142/76 04/14 0825 89 142/76 04/14 0800 96 Nasal 2.0L Cannula 04/14 0752 95 Room Air Room Air Intake & Output 04/15 0800 04/15 0000 04/14 1600 Intake Total 450 300 520 Output Total 8490 999 3149 Balance -700 -300 -970 Intake, IV 20 Intake, Oral 450 300 500 Output, Urine 1359 875 1357 Patient 313 lb Weight Weight Standing Scale Measurement Method Physical Exam General Appearance: Alert, Oriented X3, Cooperative, No Acute Distress Cardiovascular: Regular Rate, Normal S1, Normal S2, irregularly irregular rhythm Lungs: scant wheezing, improved from yesterday Abdomen: Normal Bowel Sounds, Soft, No Tenderness Neurological: Normal Speech, Normal Tone, Sensation Intact Extremities: 2+ pitting edema of the distal LEs with the RLE wrapped. LLE has lichenification and hyperpigmentation Current Medications: Current Medications Sig/Ann-Marie Start time Last Medication Dose Route Stop Time Status Admin Albuterol Sulfate 3 ML EVERY 4 HRS/AWAKE 04/14 0800 04/14 INH 2004 Amiodarone HCl 200 MG DAILY 04/14 0900 04/14 PO 0825 Aspirin Buffered 81 MG DAILY 04/14 09 04/14 PO 0825 Atorvastatin Calcium 40 MG 1700 04/14 1700 04/14 PO 1638 Budesonide/ 2 PUF BID 04/14 09 04/14 Formoterol Fumarate INH 2027 Carvedilol 25 MG BID 04/14 09 04/14 PO 2028 Cyanocobalamin 2,000 MCG DAILY 04/14 09 04/14 PO 0825 Docusate Sodium 100 MG BID PRN 04/13 2115 PO Fenofibrate 145 MG DAILY 04/14 09 04/14 PO 0825 Furosemide 40 MG 7:30 AM, & 4:30 PM 04/14 1630 AC 04/14 IV 1638 Furosemide 40 MG DAILY 04/14 09 OK 04/14 IV 0828 Gabapentin 600 MG Q8 04/14 06 04/15 PO 0605 Guaifenesin 600 MG Q12 04/14 1415 04/14 PO 2025 Insulin Aspart 3 UNITS ONCE ONE 04/14 2200 DC 04/14 MT 04/14 2201 2200 Insulin Aspart 7 UNITS ONCE ONE 04/14 2145 CAN MT 04/14 214 Insulin Aspart 0 TIDAC 04/14 08 04/14 MT 1749 Insulin Detemir 30 UNITS BID 04/15 0900 UNVr SC Lisinopril 5 MG DAILY 04/14 09 04/14 PO 0825 Oxycodone/ 2 TAB TIDPRN PRN 04/13 2300 04/15 Acetaminophen PO 0605 Polyethylene Glycol 17 GM DAILY 04/14 09 04/14 PO 0825 Prednisone 40 MG DAILY 04/14 09 04/14 PO 1045 Senna/Docusate Sodium 2 TAB DAILY NEEDED PRN 04/14 0115 04/14 PO 0825 Last 24 Hrs of Lab/Matheus Results Last 24 Hrs of Labs/Mics: Laboratory Tests 04/15/18 0615: Anion Gap 14, Estimated GFR > 60, BUN/Creatinine Ratio 36.7 H, PT 35.3 H, INR 3.20 H, CBC w Diff NO MAN DIFF REQ, RBC 4.71, MCV 83.6, MCH 27.3, MCHC 32.6 L, RDW 16.0 H, MPV 9.1, Gran % 81.9 H, Lymphocytes % 10.6 L, Monocytes % 6.7, Eosinophils % 0.7, Basophils % 0.1, Absolute Granulocytes 8.0 H, Absolute Lymphocytes 1.0 L, Absolute Monocytes 0.6, Absolute Eosinophils 0.1, Absolute Basophils 0 04/14/18 2215: Glucose 346 H Assessment/Plan Assessment: Patient is a 62-year-old male with a PMH significant for A. fib, left lower extremity DVT, CAD status post PCI, HLD, chronic venous insufficiency, PVD on 2 L O2 baseline, type 2 diabetes mellitus who presented to [facility] complaining of worsening shortness of breath, she was referred into the ED by Dr[facility]. #acute hypoxic respiratory failure, multifactorial Patient's cough is improving, he has an extensive history of COPD. He has a history of HFpEF, and although his lower extremity edema is worsening, there are no crackles on lung auscultation, and his chest x-ray does not show signs of fluid overload. Patient was recommended to stay in bed or at least keep his legs elevated in the recliner, he states that he is unable to breathe while doing that -increase lasix to 60 mg IV -Continue TRC/nebs, start Mucinex twice daily -Discussed with respiratory therapist about providing chest physiotherapy - continue 40 mg prednisone daily #Supratherapeutic INR -We will continue to hold Coumadin and monitor INR, no need to reverse at this time #Chronic medical problems including A. fib, CAD, DM, HTN -We will continue home medical regimen, holding Coumadin, holding oral hypoglycemics, Accu-Cheks 3 times daily before meals and at bedtime, sliding NovoLog sliding, we have restarted his Levemir 30 units twice daily as his fingerstick glucose readings were elevated overnight Diet: Diabetic, sodium restriction DVT prophylaxis: Supratherapeutic INR, Alps CODE STATUS: Full code Problem List: 1. Dyspnea 2. Lower extremity edema Pain Ratin Pain Location: none Pain Goal: Remain pain free Pain Plan: pain pathway Tomorrow's Labs & Rationales: cbc, bep Jodie Guajardo MD 04/15/18 1244: Attending MD Review Statement Attending Statement Attending MD Statement: examined this patient, discuss w/resident/PA/CONSTRUCTION REPRESENTATIVE, agreed w/resident/PA/CONSTRUCTION REPRESENTATIVE, reviewed EMR data (avail) Attending Assessment/Plan: 62M PMH CHF, COPD on 2L home O2, DM, CAD, a fib presenting with several weeks of SOB, recently seen in CHF clinic and given IV Lasix with no improvement, found to be fluid overloaded here, wheezing on exam, EKG no changes. Patient is still dyspneic at rest today and severely dyspneic with minimal exertion. His wheezing has improved. Leg edema is slowly improving. 1. Acute on chronic systolic CHF 2. COPD Exacerbation Plan - Continue on telemetry - Continue IV Lasix - I/O, daily weights - Follow cardiology recommendations - Switch to Prednisone taper - Nebulizer treatments - Leg compression and elevation - Continue home medications - DVT PPx
[2018-04-15 08:19] LABS: PT 35.3 SEC (9.4-12.5)
[2018-04-15 08:22] LABS: ABSOLUTE BASOPHIL COUNT 0 /CUMM (0.0-0.2); ABSOLUTE EOSINOPHIL COUNT 0.1 /CUMM (0.0-0.7); ABSOLUTE MONOCYTE COUNT 0.6 /CUMM (0.10-0.60); BASOPHIL % 0.1 % (0.0-2.0); EOSINOPHIL % 0.7 % (0-5); GRANULOCYTE % 81.9 % (42.2-75.2); HEMATOCRIT 39.3 % (42-52); MEAN CORPUSCULAR HGB 27.3 PG (27.0-31.0); MEAN CORPUSCULAR HGB CONC 32.6 G/DL (33.0-37.0); MEAN CORPUSCULAR VOLUME 83.6 FL (80.0-94.0); MEAN PLATELET VOLUME 9.1 FL (7.4-10.4); PLATELET COUNT 240 /CUMM (130-400); RED BLOOD CELL CT 4.71 /CUMM (4.70-6.10); WHITE BLOOD CELL COUNT 9.7 /CUMM (4.8-10.8)
--- NOTE | 2018-04-15 11:19 | PN- Cardiology ---
Subjective Subjective: The patient still significantly short of breath. He continues to have a productive cough. No chest pain. No palpitations. No diaphoresis. No nausea or vomiting. Objective Vital Signs and I&Os Vital Signs Date Time Temp Pulse Resp B/P B/P Pulse O2 O2 Flow FiO2 Mean Ox Delivery Rate 04/15 0827 73 138/70 04/15 0827 75 138/70 04/15 0800 97 Nasal 2.0L Cannula 04/15 0752 87 Room Air Room Air 04/15 0638 97.9 73 20 138/70 95 Room Air 04/14 2300 98.2 88 18 122/56 94 Nasal 2.0L Cannula 04/14 2131 Nasal 2.0L Cannula 04/14 2028 87 122/56 04/14 1611 92 Nasal 2.0L Cannula 04/14 1600 96 Nasal 2.0L Cannula 04/14 1417 97.5 84 22 122/66 90 Nasal 2.0L Cannula Intake & Output 04/15 1600 04/15 0800 04/15 0000 04/14 1600 04/14 0800 04/14 0000 Intake Total 450 300 520 220 880 Output Total 4615 497 7436 300 2080 Balance -700 -300 - Intake, IV 20 Intake, Oral 450 300 500 220 880 Output, Urine 2270 768 0561 300 2080 Patient 313 lb 302 lb 310 lb Weight Weight Standing Scale Standing Scale Estimated Measurement Method Physical Exam: Gen: NAD HEENT: normal Lungs: Scattered rhonchi bilateral, normal resp. effort Heart: RRR, S1, S2, no murmurs Abdomen: Soft, nontender, no masses Extremities: 2+ edema Neuro: Alert and oriented x 3, cranial nerves intact Current Medications: Current Medications Sig/Ann-Marie Start time Last Medication Dose Route Stop Time Status Admin Albuterol Sulfate 3 ML EVERY 4 HRS/AWAKE 04/14 800 AC 04/15 INH 0749 Amiodarone HCl 200 MG DAILY 04/14 900 AC 04/15 PO 08 Aspirin Buffered 81 MG DAILY 04/14 900 AC 04/15 PO 08 Atorvastatin Calcium 40 MG 1700 04/14 1700 AC 04/14 PO 1638 Budesonide/ 2 PUF BID 04/14 900 AC 04/15 Formoterol Fumarate INH 0828 Carvedilol 25 MG BID 04/14 900 AC 04/15 PO 1049 Cyanocobalamin 2,000 MCG DAILY 04/14 09 04/15 PO 0827 Docusate Sodium 100 MG BID PRN 04/13 2115 AC PO Fenofibrate 145 MG DAILY 04/14 09 04/15 PO 0827 Furosemide 60 MG 7:30 AM, & 4:30 PM 04/15 0745 AC 04/15 IV 0826 Furosemide 40 MG 7:30 AM, & 4:30 PM 04/14 1630 DC 04/14 IV 1638 Furosemide 40 MG DAILY 04/14 09 ID 04/14 IV 0828 Gabapentin 600 MG Q8 04/14 06 04/15 PO 0605 Guaifenesin 600 MG Q12 04/14 1415 AC 04/15 PO 0827 Insulin Aspart 3 UNITS ONCE ONE 04/14 2200 ID 04/14 SD 04/14 Insulin Aspart 7 UNITS ONCE ONE 04/14 2145 CAN SD 04/14 2146 Insulin Aspart 0 TIDAC 04/14 800 04/15 SC 0827 Insulin Detemir 30 UNITS BID 04/15 09 04/15 SC 0827 Lisinopril 5 MG DAILY 04/14 09 04/15 PO 0827 Oxycodone/ 2 TAB TIDPRN PRN 04/13 2300 AC 04/15 Acetaminophen PO 0605 Polyethylene Glycol 17 GM DAILY 04/14 09 04/15 PO 0828 Prednisone 40 MG DAILY 04/14 09 04/15 PO 0827 Senna/Docusate Sodium 2 TAB DAILY NEEDED PRN 04/14 0115 04/14 PO 0825 Results Last 48 Hrs of Labs/Mics: Laboratory Tests 04/15/18 0615: Anion Gap 14, Estimated GFR > 60, BUN/Creatinine Ratio 36.7 H, PT 35.3 H, INR 3.20 H, CBC w Diff NO MAN DIFF REQ, RBC 4.71, MCV 83.6, MCH 27.3, MCHC 32.6 L, RDW 16.0 H, MPV 9.1, Gran % 81.9 H, Lymphocytes % 10.6 L, Monocytes % 6.7, Eosinophils % 0.7, Basophils % 0.1, Absolute Granulocytes 8.0 H, Absolute Lymphocytes 1.0 L, Absolute Monocytes 0.6, Absolute Eosinophils 0.1, Absolute Basophils 0 04/14/18 2215: Glucose 346 H 04/14/18 0605: Anion Gap 13, Estimated GFR > 60, BUN/Creatinine Ratio 31.1 H, PT 49.6 *H, INR 4.48 *H 04/13/18 2200: Troponin I 0.02, PT 63.4 *H, INR 5.71 *H 04/13/18 1150: Anion Gap 10, Estimated GFR > 60, BUN/Creatinine Ratio 31.1 H, Glucose 85, Calcium 9.7, Magnesium 1.6, Total Bilirubin 0.7, AST 17, ALT 25, Alkaline Phosphatase 72, Troponin I 0.02, [id number] Pept 931 H, Total Protein 6.9, Albumin 4.0, Globulin 2.9, Albumin/Globulin Ratio 1.4, CBC w Diff NO MAN DIFF REQ, RBC 4.76, MCV 83.9, MCH 27.7, MCHC 33.1, RDW 15.9 H, MPV 8.3, Gran % 77.1 H, Lymphocytes % 13.4 L, Monocytes % 6.7, Eosinophils % 2.7, Basophils % 0.1, Absolute Granulocytes 6.2, Absolute Lymphocytes 1.1 L, Absolute Monocytes 0.5, Absolute Eosinophils 0.2, Absolute Basophils 0 Assessment/Plan Assessment/Plan Assessment: 1. Lower extremity edema related to venous insufficiency, pulmonary hypertension, with stasis dermatitis and venous stasis changes 2. Acute on chronic COPD exacerbation with production of copious amounts of sputum 3. Acute on chronic HFpEF with probable cor pulmonale and right heart failure 4. Diabetes 5. Hypertension 6. History of coronary artery disease, status post stenting; mild cardio myopathy of coronary artery disease with ejection fraction of 50-55% on last echo 03/17 7. Peripheral arterial disease 8. Atrial fibrillation 9. Prior history of DVT 10. Supratherapeutic INR Plan: * Continue IV Lasix * Monitor input and output with daily weight * Check basic metabolic profile daily Continue telemetry? Yes
[2018-04-15 14:18] VITALS: BP 128/64
[2018-04-16 06:00] VITALS: BP 118/60
--- NOTE | 2018-04-16 07:11 | PN- Housestaff ---
Ishaan VILLASENOR,Ivan 04/16/18 0711: Subjective Follow-up For: Dyspnea Tele-Events Since Last Visit: Jose lowe with HR [id number] Subjective: Patient was seen and examined at bedside. He continues to report significant dyspnea with minimal exertion and at times at rest. He continues to report productive cough with greenish sputum. He denies any palpitations, chest pain, nausea, vomiting, fever, chills. Review of Systems Constitutional: Reports: see HPI. Objective Last 24 Hrs of Vital Signs/I&O Vital Signs Date Time Temp Pulse Resp B/P B/P Pulse O2 O2 Flow FiO2 Mean Ox Delivery Rate 04/16 06 98.0 77 20 118/60 94 Nasal Cannula 04/15 2229 Nasal 2.0L Cannula 04/15 2218 98.1 85 20 95 Nasal 2.0L Cannula 04/15 2032 96 Nasal 2.0L Cannula 04/15 2014 82 128/62 04/15 1418 97.7 79 20 128/64 91 Nasal 2.0L Cannula 04/15 0827 73 138/70 04/15 0827 75 138/70 04/15 0800 97 Nasal 2.0L Cannula 04/15 0752 87 Room Air Room Air Intake & Output 04/16 0800 04/16 0000 04/15 1600 Intake Total 480 380 420 Output Total 1050 4000 1700 Balance -570 -3620 -1280 Intake, IV 20 Intake, Oral 480 380 400 Output, Urine 1050 4000 1700 Patient 313 lb Weight Physical Exam General Appearance: Alert, Oriented X3, Cooperative, No Acute Distress Sepsis Skin Exam (color): Normal for Ethnicity Cardiovascular: Regular Rate, Normal S1, Normal S2, irregularly irregular rhythm Lungs: Clear to Auscultation, Normal Air Movement Abdomen: Normal Bowel Sounds, Soft, No Tenderness Neurological: Normal Speech, Normal Tone, Sensation Intact Extremities: LE wrapped bilaterally 2+ pitting edema Current Medications: Current Medications Sig/Ann-Marie Start time Last Medication Dose Route Stop Time Status Admin Albuterol Sulfate 3 ML EVERY 4 HRS/AWAKE 04/14 800 AC 04/15 INH 2024 Amiodarone HCl 200 MG DAILY 04/14 900 AC 04/15 PO 08 Aspirin Buffered 81 MG DAILY 04/14 900 AC 04/15 PO 08 Atorvastatin Calcium 40 MG 1700 04/14 1700 AC 04/15 PO 1608 Budesonide/ 2 PUF BID 04/14 900 04/15 Formoterol Fumarate INH 2017 Carvedilol 25 MG BID 04/14 09 04/15 PO 2014 Cyanocobalamin 2,000 MCG DAILY 04/14 09 04/15 PO 0827 Docusate Sodium 100 MG BID PRN 04/13 2115 04/15 PO 1300 Fenofibrate 145 MG DAILY 04/14 09 04/15 PO 0827 Furosemide 60 MG 7:30 AM, & 4:30 PM 04/15 0745 04/15 IV 1608 Furosemide 40 MG 7:30 AM, & 4:30 PM 04/14 1630 DC 04/14 IV 1638 Gabapentin 600 MG Q8 04/14 06 04/16 PO 0634 Guaifenesin 600 MG Q12 04/14 1415 04/15 PO 2013 Insulin Aspart 0 TIDAC 04/14 08 04/15 SC 1727 Insulin Detemir 30 UNITS BID 04/15 09 04/15 SC 2217 Lisinopril 5 MG DAILY 04/14 09 04/15 PO 0827 Magnesium Chloride 64 MG DAILY 04/15 1518 04/15 PO 1727 Oxycodone/ 2 TAB TIDPRN PRN 04/13 2300 04/16 Acetaminophen PO 0635 Patient Medication 1 ED ONE ONE 04/15 1645 NM Teaching ED 04/15 1646 Polyethylene Glycol 17 GM DAILY 04/14 09 04/15 PO 0828 Prednisone 40 MG DAILY 04/14 09 04/15 PO 0827 Senna/Docusate Sodium 2 TAB DAILY NEEDED PRN 04/14 0115 04/14 PO 0825 Last 24 Hrs of Lab/Matheus Results Last 24 Hrs of Labs/Mics: Laboratory Tests 04/16/18 0719: Anion Gap 12, Estimated GFR > 60, BUN/Creatinine Ratio 38.3 H, Magnesium 1.9, PT 25.9 H, INR 2.36 H Assessment/Plan Assessment: Patient is a 62-year-old male with a PMH significant for A. fib, left lower extremity DVT, CAD status post PCI, HLD, chronic venous insufficiency, PVD on 2 L O2 baseline, type 2 diabetes mellitus who presented to [facility] complaining of worsening shortness of breath, she was referred into the ED by Dr. Zhu from the wound care center. #acute hypoxic respiratory failure, multifactorial Patient's wheezing is improving with breathing treatments, however he continues to get severe dyspnea with exertion and even at rest simply by talking. He is in a negative fluid balance, with -5 L yesterday making decompensated heart failure and unlikely contributor to his dyspnea -Decreased every Lasix to 40 mg twice daily -Continue TRC/nebs, continue Mucinex twice daily -Patient could not tolerate chest CT due to shortness of breath when lying down, repeat chest x-ray showed pulmonary vascular congestion - continue 40 mg prednisone daily #Supratherapeutic INR, resolved -We will dose 7.5 mg Coumadin today, patient's home dose is 10 mg however he was supratherapeutic on admission, will recheck INR tomorrow and adjust Coumadin accordingly #Chronic medical problems including A. fib, CAD, DM, HTN -We will continue home medical regimen, holding oral hypoglycemics, Accu-Cheks 3 times daily before meals and at bedtime, sliding NovoLog sliding increased dosage today due to uncontrolled blood sugars, we have restarted his Levemir 30 units twice daily as his fingerstick glucose readings were elevated overnight Diet: Diabetic, sodium restriction DVT prophylaxis: coumadin, Alps CODE STATUS: Full code Problem List: 1. Lower extremity edema 2. Dyspnea Pain Ratin Pain Location: none Pain Goal: Remain pain free Pain Plan: pain pathway Tomorrow's Labs & Rationales: cbc, bep [facility]3: Attending MD Review Statement Attending Statement Attending MD Statement: examined this patient, discuss w/resident/PA/SHOOTER'S HELPER, agreed w/resident/PA/SHOOTER'S HELPER, reviewed EMR data (avail) Attending Assessment/Plan: 62M PMH CHF, COPD on 2L home O2, DM, CAD, a fib presenting with several weeks of SOB, recently seen in CHF clinic and given IV Lasix with no improvement, found to be fluid overloaded here, wheezing on exam, EKG no changes. Patient is still dyspneic at rest today and severely dyspneic with minimal exertion. His wheezing has improved. Leg edema is slowly improving. 1. Acute on chronic systolic CHF 2. COPD Exacerbation Plan - Continue on telemetry - Obtain CT chest - Continue IV Lasix - I/O, daily weights - Follow cardiology recommendations - Prednisone taper - Nebulizer treatments - Leg compression and elevation - Continue home medications - DVT PPx
[2018-04-16 08:16] LABS: PT 25.9 SEC (9.4-12.5)
--- NOTE | 2018-04-16 11:50 | PN- Cardiology ---
Subjective Subjective: The patient is doing slightly better today. He has diuresed well over the last 48 hours. His lower extremity edema has improved. Despite diuresis, he remains short of breath with minimal ambulation and with even extensive conversation. Continues to cough up significant amount of green purulent phlegm Objective Vital Signs and I&Os Vital Signs Date Time Temp Pulse Resp B/P B/P Pulse O2 O2 Flow FiO2 Mean Ox Delivery Rate 04/16 0823 95 Nasal 2.0L Cannula 04/16 06 98.0 77 20 118/60 94 Nasal Cannula 04/15 2229 Nasal 2.0L Cannula 04/15 2218 98.1 85 20 95 Nasal 2.0L Cannula 04/15 2032 96 Nasal 2.0L Cannula 04/15 2014 82 128/62 04/15 1418 97.7 79 20 128/64 91 Nasal 2.0L Cannula Intake & Output 04/16 1600 04/16 0800 04/16 0000 04/15 1600 04/15 0800 04/15 0000 Intake Total 480 380 420 450 300 Output Total 1050 4000 1700 1150 600 Balance -570 -3620 -1280 -700 -300 Intake, IV 20 Intake, Oral 480 380 400 450 300 Output, Urine 1050 4000 1700 1150 600 Patient 313 lb 313 lb Weight Weight Standing Scale Measurement Method Current Medications: Current Medications Sig/Ann-Marie Start time Last Medication Dose Route Stop Time Status Admin Albuterol Sulfate 3 ML EVERY 4 HRS/AWAKE 04/14 800 AC 04/16 INH 0823 Amiodarone HCl 200 MG DAILY 04/14 900 AC 04/16 PO 0836 Aspirin Buffered 81 MG DAILY 04/14 900 AC 04/16 PO 0836 Atorvastatin Calcium 40 MG 1700 04/14 1700 AC 04/15 PO 1608 Budesonide/ 2 PUF BID 04/14 900 AC 04/16 Formoterol Fumarate INH 0836 Carvedilol 25 MG BID 04/14 900 AC 04/16 PO 1140 Cyanocobalamin 2,000 MCG DAILY 04/14 900 AC 04/16 PO 0835 Docusate Sodium 100 MG BID PRN 04/13 2115 AC 04/16 PO 0835 Fenofibrate 145 MG DAILY 04/14 900 AC 04/16 PO 0836 Furosemide 60 MG 7:30 AM, & 4:30 PM 04/15 0745 05/18 IV 0838 Gabapentin 600 MG Q8 04/14 06 AC 04/16 PO 0634 Guaifenesin 600 MG Q12 04/14 1415 AC 04/16 PO 0836 Insulin Aspart 0 TIDAC 04/14 08 04/16 SC 1145 Insulin Detemir 30 UNITS BID 04/15 0900 AC 04/16 SC 0834 Lisinopril 5 MG DAILY 04/14 0900 AC 04/16 PO 0835 Magnesium Chloride 64 MG DAILY 04/15 1518 AC 04/16 PO 0836 Oxycodone/ 2 TAB TIDPRN PRN 04/13 2300 AC 04/16 Acetaminophen PO 0635 Patient Medication 1 ED ONE ONE 04/15 1645 DC Teaching ED 04/15 1646 Polyethylene Glycol 17 GM DAILY 04/14 09 04/16 PO 0839 Prednisone 40 MG DAILY 04/14 0900 04/16 PO 0836 Senna/Docusate Sodium 2 TAB DAILY NEEDED PRN 04/14 0115 AC 04/14 PO 0825 Warfarin Sodium 7.5 MG COUMADIN 1700 ONE 04/16 1700 CAN PO 04/16 1701 Results Last 48 Hrs of Labs/Mics: Laboratory Tests 04/16/18 0719: Anion Gap 12, Estimated GFR > 60, BUN/Creatinine Ratio 38.3 H, Magnesium 1.9, PT 25.9 H, INR 2.36 H 04/15/18 0615: Anion Gap 14, Estimated GFR > 60, BUN/Creatinine Ratio 36.7 H, PT 35.3 H, INR 3.20 H, CBC w Diff NO MAN DIFF REQ, RBC 4.71, MCV 83.6, MCH 27.3, MCHC 32.6 L, RDW 16.0 H, MPV 9.1, Gran % 81.9 H, Lymphocytes % 10.6 L, Monocytes % 6.7, Eosinophils % 0.7, Basophils % 0.1, Absolute Granulocytes 8.0 H, Absolute Lymphocytes 1.0 L, Absolute Monocytes 0.6, Absolute Eosinophils 0.1, Absolute Basophils 0 04/14/18 2215: Glucose 346 H Assessment/Plan Assessment/Plan Assessment: 1. Lower extremity edema related to venous insufficiency, pulmonary hypertension, with stasis dermatitis and venous stasis changes 2. Acute on chronic COPD exacerbation with production of copious amounts of sputum 3. Acute on chronic HFpEF with probable cor pulmonale and right heart failure 4. Diabetes 5. Hypertension 6. History of coronary artery disease, status post stenting; mild cardio myopathy of coronary artery disease with ejection fraction of 50-55% on last echo 03/17 7. Peripheral arterial disease 8. Atrial fibrillation 9. Prior history of DVT 10. Supratherapeutic INR Recommendations: -Telemetry monitoring -IV Lasix diuresis with close monitoring of intakes, outputs, daily weights. The patient's BUN and creatinine have increased slightly today. Consider decreasing Lasix back to 40 mg twice daily. -Continue Willie wraps for lower extremities with leg elevation, sodium restriction , etc. -Consider further pulmonary input to help assist patient with mobilization of his thick copious sputum which significantly contributes to his shortness of breath and hypoxia -No need to repeat echocardiogram at the present time -Follow-up chest CT pending Continue telemetry? Yes
[2018-04-16 14:47] VITALS: BP 139/73
--- NOTE | 2018-04-16 15:09 | RADIOLOGY REPORT ---
EXAMINATION: XR CHEST CLINICAL INFORMATION: Worsening dyspnea. History of COPD. Possible amiodarone toxicity. COMPARISON: Chest done on 04/13/2018. TECHNIQUE: 2 views of the chest were obtained. FINDINGS: Hyperinflated lung field is present bilaterally. The cardiomediastinal silhouette mild to moderately enlarged. There is pulmonary venous congestion present. There is no radiographic evidence of any interstitial or alveolar abnormalities identified specifically at both lung bases. There is no pleural effusion present. Given the slight difference in technique, except for mild pulmonary venous congestion, there is no other significant interval change present since the prior study dated 02/11/2018. IMPRESSION: Mild pulmonary venous congestion, appear new since prior study, otherwise no other significant interval change present. Specifically, no definite radiographic evidence of pulmonary amiodarone toxicity identified.
--- NOTE | 2018-04-16 15:18 | Cons- Pulmonary ---
General Information and HPI Consulting Request Date of Consult: 04/16/18 Requested By: medical team Reason for Consult: increased sputum COPD exacerbation Source of Information: patient Exam Limitations: no limitations History of Present Illness: 62 year old man. Recent admit in February 2018. Hx of CAD, COPD on 3LNC, Hx of TOMASZ declined therapy due to discomfort. a.fib, htn, CHF EF preserved. Chronic venous insufficiency with wounds. Admitted for significant fluid overload. Diuresed well with iv lasix. Has been to the wellness clinic. However there is suspicion of poor absorption and gut edema of lasix. His dyspnea has improved, but his concern is regarding sputum He appears to have a chronic bronchitis phenotype of COPD. He has exertional and conversational dyspnea chronically but worsened recently. He feels somewhat better after diuresis and his leg edema is somewhat improved, but still significant. He does have brownish phlegm, cough, wheezing and clearly an underlying COPD component as well. No fevers, no chills, no mcclendon, no sick contacts or travel hx. No n/v/d/c. He has a hx of begin colonized with pseduomonas in the past. CXR with cardiomegaly. Vascular congestion. Allergies/Medications Allergies: Coded Allergies: NO KNOWN ALLERGIES (UNKNOWN 04/06/17) Home Med List: Amiodarone (Cordarone) 200 MG TABLET 1 TAB PO DAILY AFIB (Reported) Aspirin (Ecotrin*) 81 MG TABLET.DR 1 TAB PO DAILY HEART/BLOOD (Reported) Atorvastatin Calcium 40 MG TABLET 1 TAB PO DAILY CHOLESTEROL (Reported) Budesonide/Formoterol Fumarate (Symbicort 160-4.5 Mcg Inhaler) 10.2 GM HFA.AER.AD 2 PUF INH BID COPD Carvedilol 25 MG TABLET 1 TAB PO BID HEART (Reported) Cholecalciferol (Vitamin D3) (Vitamin D) 2,000 UNIT TABLET 1 TAB PO DAILY SUPPLEMENT (Reported) Cyanocobalamin (Vitamin B-12) (Vitamin B-12) 2,000 MCG TABLET 1 TAB PO DAILY SUPPLEMENT (Reported) Docusate Sodium (Colace) 100 MG CAPSULE 1 CAP PO BID PRN Constipation Fenofibrate 160 MG TABLET 1 TAB PO DAILY CHOLESTEROL (Reported) Furosemide 40 MG TABLET 1.5 TAB PO BID CHF .. Gabapentin 600 MG TABLET 1 TAB PO TID NEUROPATHY (Reported) Guaifenesin (Guaifenesin ER) 600 MG TAB.ER.12H 600 MG PO BID PRODUCTIVE COUGH Insulin Detemir (Levemir Flextouch) 100 UNIT/ML (3 ML) INSULN.PEN 30 UNITS SC BID DM (Reported) Insulin Lispro (Humalog) (Unknown Strength) VIAL (Unknown Dose) SC SEE SLIDING SCALE DIABETES (Reported) Levalbuterol HCl 1.25 MG/3 ML VIAL.NEB 1 INH PO Q4 BREATHING PROBLEMS ( Reported) Lisinopril (Prinivil) 5 MG TABLET 1 TAB PO DAILY HTN (Reported) Magnesium Chloride (Slow-Mag) 71.5 MG TABLET.DR 64 MG PO DAILY SUPPLEMENT Metformin HCl 850 MG TABLET 850 MG PO 0800,1700 diabetes Nystatin 100,000 UNIT/GRAM CREAM..G. 1 NIKITA TOP BID FUNGAL INFECTION Oxycodone HCl 10 MG TABLET 10 MG PO TID CHRONIC PAIN (Reported) Polyethylene Glycol 3350 (Miralax) 119 GM POWDER 17 GM PO AT BEDTIME PRN CONSTIPATION Potassium Chloride 10 MEQ CAPSULE.ER 1 CAP PO DAILY SUPPLEMENT (Reported) Warfarin Sodium (Coumadin) 10 MG TABLET 1 TAB PO SuMoTuThFrSa BLOOD THINNER ( Reported) Please dose Coumadin based upon the INR. Current Medications: Current Medications Sig/Ann-Marie Start time Last Medication Dose Route Stop Time Status Admin Albuterol Sulfate 3 ML EVERY 4 HRS/AWAKE 04/14 08 AC 04/16 INH 1154 Amiodarone HCl 200 MG DAILY 04/14 09 AC 04/16 PO 0836 Aspirin Buffered 81 MG DAILY 04/14 09 AC 04/16 PO 0836 Atorvastatin Calcium 40 MG 1700 04/14 1700 AC 04/15 PO 1608 Budesonide/ 2 PUF BID 04/14 09 AC 04/16 Formoterol Fumarate INH 0836 Carvedilol 25 MG BID 04/14 09 AC 04/16 PO 1140 Cyanocobalamin 2,000 MCG DAILY 04/14 900 AC 04/16 PO 0835 Docusate Sodium 100 MG BID PRN 04/13 2115 AC 04/16 PO 0835 Fenofibrate 145 MG DAILY 04/14 09 AC 04/16 PO 0836 Furosemide 60 MG DAILY 04/17 0900 CAN IV Furosemide 40 MG 7:30 AM, & 4:30 PM 04/16 1630 AC IV Furosemide 60 MG 7:30 AM, & 4:30 PM 04/15 0745 DC 04/16 IV 04/16 1630 0838 Gabapentin 600 MG Q8 04/14 06 AC 04/16 PO 0634 Guaifenesin 600 MG Q12 04/14 1415 AC 04/16 PO 0836 Insulin Aspart 0 TIDAC 04/14 0800 AC 04/16 SC 1145 Insulin Detemir 30 UNITS BID 04/15 0900 AC 04/16 SC 0834 Lisinopril 5 MG DAILY 04/14 0900 AC 04/16 PO 0835 Magnesium Chloride 64 MG DAILY 04/15 1518 AC 04/16 PO 0836 Oxycodone/ 2 TAB TIDPRN PRN 04/13 2300 AC 04/16 Acetaminophen PO 0635 Patient Medication 1 ED ONE ONE 04/15 1645 DC Teaching ED 04/15 1646 Polyethylene Glycol 17 GM DAILY 04/14 09 AC 04/16 PO 0839 Prednisone 40 MG DAILY 04/14 0900 AC 04/16 PO 0836 Senna/Docusate Sodium 2 TAB DAILY NEEDED PRN 04/14 0115 AC 04/14 PO 0825 Warfarin Sodium 7.5 MG COUMADIN 1700 ONE 04/16 1700 CAN PO 04/16 1701 Review of Systems Comments 18 point review of systems was performed and reviewed. Please see pertinent positives and pertinent negatives in the HPI. Otherwise ROS is negative. Past History Travel History Traveled to [place] past 21 day No Medical History Neurological: NONE EENT: NONE Cardiovascular: AFIB, CAD, CHF, chronic venous insuff, hypertension, hyperlipidemia, myocardial infarction, STENT 2003 Respiratory: bronchitis, COPD, emphysema, obstructive sleep apnea, 02 3LDEPENDENT Gastrointestinal: NONE Hepatic: NONE Renal: NONE Musculoskeletal: degen joint disease Psychiatric: NONE Endocrine: diabetes Blood Disorders: DVT LLE Cancer(s): NONE CORROSION CONTROL FITTER/Reproductive: NONE Surgical History Surgical History: cholecystectomy, knee replacement (left knee), status post aborted maze procedure b/l LE venous sclerotherapy Family History Relations & Conditions If Any: FATHER FH: heart attack FH: HTN (hypertension) MOTHER FH: heart attack FH: HTN (hypertension) FHx: stroke SISTER FH: breast cancer FH: CHF (congestive heart failure) Psychosocial History Who Do You Live With? spouse Services at Home: Oxygen Primary Language: Amharic Smoking Status: Former Smoker ETOH Use: denies use Living Will? no Power of Brick Sorter/HCP? no Functional Ability ADLs Independent: dressing, eating, toileting, bathing. Ambulation: walker (also uses cane sometimes) IADLs Independent: shopping, housework, finances, food prep, telephone, transportation , medication admin. Exam & Diagnostic Data Last 24 Hrs of Vital Signs/I&O Vital Signs Date Time Temp Pulse Resp B/P B/P Pulse O2 O2 Flow FiO2 Mean Ox Delivery Rate 04/17 0858 95 Nasal 2.5L Cannula 04/17 0814 76 144/86 04/17 0814 76 144/86 04/17 0814 76 144/86 04/17 0800 94 Nasal 2.5L Cannula 04/17 0635 20.0 76 20 144/86 96 Nasal Cannula 04/17 0000 Nasal 2.0L Cannula 04/16 2227 97.7 83 20 138/80 100 Nasal Cannula 04/16 2202 92 144/78 04/16 1636 96 Nasal 2.0L Cannula 04/16 1447 97.6 68 20 139/73 94 Nasal 2.0L Cannula Intake & Output 04/17 1600 04/17 0800 04/17 0000 Intake Total Output Total 417 798 1905 Balance -700 -900 -2300 Output, Urine 881 205 6064 Physical Exam Other Physical Findings: gen awake and alert head/neck - nasal cannula cvs s1, s2 lungs diminished bs at bases, overall clear with occasional rhonchi abd obese ext wrapped edematous extremities Last 48 Hrs of Labs/Matheus: Laboratory Tests 04/17/18 0600: Anion Gap 11, Estimated GFR > 60, BUN/Creatinine Ratio 39.1 H, PT 19.9 H, INR 1.81 H, CBC w Diff NO MAN DIFF REQ, RBC 4.73, MCV 84.0, MCH 27.5, MCHC 32.8 L, RDW 16.3 H, MPV 9.1, Gran % 75.5 H, Lymphocytes % 16.2 L, Monocytes % 6.9, Eosinophils % 1.1, Basophils % 0.3, Absolute Granulocytes 7.6 H, Absolute Lymphocytes 1.6, Absolute Monocytes 0.7 H, Absolute Eosinophils 0.1, Absolute Basophils 0 04/16/18 0719: Anion Gap 12, Estimated GFR > 60, BUN/Creatinine Ratio 38.3 H, Magnesium 1.9, PT 25.9 H, INR 2.36 H Assessment/Plan Impression/Plan: Impression 62 year old man CHF exacerbation COPD with likely mild exacerbation untreated TOMASZ secondary to patient wishes knowing risks Plan -add ipratropium nebulized to albuterol -currently on prednisone, will consider stopping shortly -continue aggressive diuresis -f/u in office, outpatient PFTs -continue to monitor glucose -diuresis -declines TOMASZ tx knowing risks DVT prophylaxis at all times Consult Acknowledgment - Thank you for your consult request.
[2018-04-16 22:27] VITALS: BP 138/80
[2018-04-17 06:35] VITALS: BP 144/86
[2018-04-17 08:42] LABS: ABSOLUTE BASOPHIL COUNT 0 /CUMM (0.0-0.2); ABSOLUTE EOSINOPHIL COUNT 0.1 /CUMM (0.0-0.7); ABSOLUTE GRANULOCYTE CT 7.6 /CUMM (1.4-6.5); ABSOLUTE LYMPH COUNT 1.6 /CUMM (1.2-3.4); ABSOLUTE MONOCYTE COUNT 0.7 /CUMM (0.10-0.60); BASOPHIL % 0.3 % (0.0-2.0); EOSINOPHIL % 1.1 % (0-5); GRANULOCYTE % 75.5 % (42.2-75.2); HEMATOCRIT 39.7 % (42-52); MEAN CORPUSCULAR HGB 27.5 PG (27.0-31.0); MEAN CORPUSCULAR HGB CONC 32.8 G/DL (33.0-37.0); MEAN PLATELET VOLUME 9.1 FL (7.4-10.4); PLATELET COUNT 239 /CUMM (130-400); RBC DISTRIBUTION WIDTH 16.3 % (11.5-14.5); RED BLOOD CELL CT 4.73 /CUMM (4.70-6.10)
[2018-04-17 09:02] LABS: PT 19.9 SEC (9.4-12.5)
--- NOTE | 2018-04-17 09:52 | PN- Housestaff ---
See Addendum Subjective Follow-up For: Dyspnea Tele-Events Since Last Visit: Flora with HR 66-94. Subjective: Patient states that he feels significantly better today after diuresis. Previously he could not talk/walk without getting short of breath but today he feels like he can talk and walk a little without getting short of breath. He is happy with his current care. Offers no complaints. Review of Systems Constitutional: Reports: no symptoms. Objective Last 24 Hrs of Vital Signs/I&O Vital Signs Date Time Temp Pulse Resp B/P B/P Pulse O2 O2 Flow FiO2 Mean Ox Delivery Rate 04/17 0858 95 Nasal 2.5L Cannula 04/17 0814 76 144/86 04/17 0814 76 144/86 04/17 0814 76 144/86 04/17 0635 20.0 76 20 144/86 96 Nasal Cannula 04/17 0000 Nasal 2.0L Cannula 04/16 2227 97.7 83 20 138/80 100 Nasal Cannula 04/16 2202 92 144/78 04/16 1636 96 Nasal 2.0L Cannula 04/16 1447 97.6 68 20 139/73 94 Nasal 2.0L Cannula Intake & Output 04/17 1600 04/17 0800 04/17 0000 Intake Total Output Total 201 241 0141 Balance -700 -900 -2300 Output, Urine 805 512 6781 Physical Exam General Appearance: Alert, Oriented X3, Cooperative, No Acute Distress Skin: No Rashes, No Breakdown Skin Temp/Moisture Exam: Warm/Dry Sepsis Skin Exam (color): Normal for Ethnicity HEENT: Atraumatic Cardiovascular: Normal S1, Normal S2, No Murmurs, irregular Lungs: mild diffuse wheezing Abdomen: Soft, No Tenderness Neurological: Normal Speech Extremities: bilateral lower extremity edema Last 24 Hrs of Lab/Matheus Results Last 24 Hrs of Labs/Mics: Laboratory Tests 04/17/18 0600: Anion Gap 11, Estimated GFR > 60, BUN/Creatinine Ratio 39.1 H, PT 19.9 H, INR 1.81 H, CBC w Diff NO MAN DIFF REQ, RBC 4.73, MCV 84.0, MCH 27.5, MCHC 32.8 L, RDW 16.3 H, MPV 9.1, Gran % 75.5 H, Lymphocytes % 16.2 L, Monocytes % 6.9, Eosinophils % 1.1, Basophils % 0.3, Absolute Granulocytes 7.6 H, Absolute Lymphocytes 1.6, Absolute Monocytes 0.7 H, Absolute Eosinophils 0.1, Absolute Basophils 0 Assessment/Plan Assessment: 62-year-old male with a PMH significant for A. fib, left lower extremity DVT, CAD status post PCI, HLD, chronic venous insufficiency, PVD, type 2 diabetes mellitus who presented to [facility] complaining of worsening shortness of breath, she was referred into the ED by Dr. Zhu from the wound care center. #Acute hypoxic respiratory failure, multifactorial Patient's wheezing is improving with breathing treatments, currently feels much better. He has been diuresing well. -Continue Lasix at 40 mg twice daily -Continue TRC/nebs, continue Mucinex twice daily - continue 40 mg prednisone daily #Supratherapeutic INR on admission: resolved. -INR was supratherapeutic on admission. He received 7.5mg Coumadin yesterday. - INR is subtherapeutic today - Will dose him today per cardiology recs. #Chronic medical problems including A. fib, CAD, DM, HTN -We will continue home medical regimen, holding oral hypoglycemics, Accu-Cheks 3 times daily before meals and at bedtime, sliding NovoLog sliding. - Continue Levemir 30 units twice daily - Blood sugars have been better overnight. Diet: Diabetic, sodium restriction DVT prophylaxis: coumadin, Alps CODE STATUS: Full code Problem List: 1. COPD (chronic obstructive pulmonary disease) Pain Ratin Pain Location: none Pain Goal: Remain pain free Pain Plan: none Tomorrow's Labs & Rationales: CBC, bep, inr
--- NOTE | 2018-04-17 11:39 | PN- Pulmonary ---
Subjective HPI/Critical Care Issues: pt seen and examined 2.5LNC Objective Current Medications: Current Medications Sig/Ann-Marie Start time Last Medication Dose Route Stop Time Status Admin Albuterol Sulfate 3 ML EVERY 4 HRS/AWAKE 04/14 08 04/17 INH 0852 Amiodarone HCl 200 MG DAILY 04/14 09 AC 04/17 PO 0814 Aspirin Buffered 81 MG DAILY 04/14 09 AC 04/17 PO 0814 Atorvastatin Calcium 40 MG 1700 04/14 1700 AC 04/16 PO 1547 Budesonide/ 2 PUF BID 04/14 09 04/17 Formoterol Fumarate INH 0813 Carvedilol 25 MG BID 04/14 09 AC 04/17 PO 0814 Cyanocobalamin 2,000 MCG DAILY 04/14 900 AC 04/17 PO 0814 Docusate Sodium 100 MG BID PRN 04/13 2115 AC 04/16 PO 0835 Fenofibrate 145 MG DAILY 04/14 900 04/17 PO 0813 Furosemide 60 MG DAILY 04/17 09 CAN IV Furosemide 40 MG 7:30 AM, & 4:30 PM 04/16 1630 AC 04/17 IV 0813 Furosemide 60 MG 7:30 AM, & 4:30 PM 04/15 0745 DC 04/16 IV 04/16 1630 0838 Gabapentin 600 MG Q8 04/14 06 04/17 PO 0633 Guaifenesin 600 MG Q12 04/14 1415 AC 04/17 PO 0814 Insulin Aspart 0 AT BEDTIME 04/16 2100 04/16 SC 2203 Insulin Aspart 0 TIDAC 04/14 08 04/17 SC 0815 Insulin Detemir 30 UNITS BID 04/15 09 04/17 SC 0813 Ipratropium [place] 2.5 ML EVERY 4 HRS/AWAKE 04/16 2000 AC 04/17 INH 0852 Lisinopril 5 MG DAILY 04/14 09 04/17 PO 0814 Magnesium Chloride 64 MG DAILY 04/15 1518 AC 04/17 PO 0815 Oxycodone/ 2 TAB TIDPRN PRN 04/13 2300 AC 04/17 Acetaminophen PO 0634 Polyethylene Glycol 17 GM DAILY 04/14 09 04/16 PO 0839 Prednisone 40 MG DAILY 04/14 09 04/17 PO 0814 Senna/Docusate Sodium 2 TAB DAILY NEEDED PRN 04/14 0115 AC 04/14 PO 0825 Warfarin Sodium 7.5 MG COUMADIN 1700 ONE 04/17 1700 AC PO 04/17 1701 Warfarin Sodium 7.5 MG ONCE ONE 04/16 1745 DC 04/16 PO 04/16 1746 1815 Vital Signs & I&O Last 24 Hrs of Vitals and I&O: Vital Signs Date Time Temp Pulse Resp B/P B/P Pulse O2 O2 Flow FiO2 Mean Ox Delivery Rate 04/17 0858 95 Nasal 2.5L Cannula 04/17 0814 76 144/86 04/17 0814 76 144/86 04/17 0814 76 144/86 04/17 0800 94 Nasal 2.5L Cannula 04/17 0635 20.0 76 20 144/86 96 Nasal Cannula 04/17 0000 Nasal 2.0L Cannula 04/16 2227 97.7 83 20 138/80 100 Nasal Cannula 04/16 2202 92 144/78 04/16 1636 96 Nasal 2.0L Cannula 04/16 1447 97.6 68 20 139/73 94 Nasal 2.0L Cannula Intake & Output 04/17 1600 04/17 0800 04/17 0000 Intake Total Output Total 958 681 4936 Balance -700 -900 -2300 Output, Urine 676 771 6965 Exam Other Physical Findings: gen awake and alert head/neck - nasal cannula cvs s1, s2 lungs diminished bs at bases, overall clear with occasional rhonchi abd obese ext wrapped edematous extremities Results Last 24 Hrs of Lab Results: Laboratory Tests 04/17/18 0600: Anion Gap 11, Estimated GFR > 60, BUN/Creatinine Ratio 39.1 H, PT 19.9 H, INR 1.81 H, CBC w Diff NO MAN DIFF REQ, RBC 4.73, MCV 84.0, MCH 27.5, MCHC 32.8 L, RDW 16.3 H, MPV 9.1, Gran % 75.5 H, Lymphocytes % 16.2 L, Monocytes % 6.9, Eosinophils % 1.1, Basophils % 0.3, Absolute Granulocytes 7.6 H, Absolute Lymphocytes 1.6, Absolute Monocytes 0.7 H, Absolute Eosinophils 0.1, Absolute Basophils 0 Impression/Plan Impression/Plan Impression/Plan: Impression 62 year old man CHF exacerbation COPD with likely mild exacerbation untreated TOMASZ secondary to patient wishes knowing risks Plan -albuterol/ipratropium q4h -DC prednisone today -continue aggressive diuresis -continue to monitor glucose -diuresis -declines TOMASZ tx knowing risks would be useful in the next 24-48 hrs to assume home diuretic regimen and monitor for a period of time prior to discharge to ensure that he is stable for dicharge DVT prophylaxis at all times
--- NOTE | 2018-04-17 12:36 | PN- Cardiology ---
Subjective Subjective: Diuresing well. Shortness of breath is improving. Edema is improving. No chest pain. No palpitations. No diaphoresis. Objective Vital Signs and I&Os Vital Signs Date Time Temp Pulse Resp B/P B/P Pulse O2 O2 Flow FiO2 Mean Ox Delivery Rate 04/17 0858 95 Nasal 2.5L Cannula 04/17 0814 76 144/86 04/17 0814 76 144/86 04/17 0814 76 144/86 04/17 0800 94 Nasal 2.5L Cannula 04/17 0635 20.0 76 20 144/86 96 Nasal Cannula 04/17 0000 Nasal 2.0L Cannula 04/16 2227 97.7 83 20 138/80 100 Nasal Cannula 04/16 2202 92 144/78 04/16 1636 96 Nasal 2.0L Cannula 04/16 1447 97.6 68 20 139/73 94 Nasal 2.0L Cannula Intake & Output 04/17 1600 04/17 0800 / 0000 04/16 1600 04/16 0800 04/16 0000 Intake Total 470 480 380 Output Total 258 933 0425 1400 1050 4000 Balance -700 -900 -2300 -930 -570 -3620 Intake, IV 20 Intake, Oral 450 480 380 Output, Urine 756 243 6530 1400 1050 4000 Patient 313 lb Weight Physical Exam: Gen: NAD HEENT: normal Lungs: Scattered rhonchi bilateral, normal resp. effort Heart: RRR, S1, S2, no murmurs Abdomen: Soft, nontender, no masses Extremities: 2+ edema Neuro: Alert and oriented x 3, cranial nerves intact Current Medications: Current Medications Sig/Ann-Marie Start time Last Medication Dose Route Stop Time Status Admin Albuterol Sulfate 3 ML EVERY 4 HRS/AWAKE 04/14 800 AC 04/17 INH 1230 Amiodarone HCl 200 MG DAILY 04/14 900 AC 04/17 PO 0814 Aspirin Buffered 81 MG DAILY 04/14 900 AC 04/17 PO 0814 Atorvastatin Calcium 40 MG 1700 04/14 1700 AC 04/16 PO 1547 Budesonide/ 2 PUF BID 04/14 900 AC 04/17 Formoterol Fumarate INH 0813 Carvedilol 25 MG BID 04/14 900 AC 04/17 PO 0814 Cyanocobalamin 2,000 MCG DAILY 04/14 900 AC 04/17 PO 0814 Docusate Sodium 100 MG BID PRN 04/135 AC 04/16 PO 0835 Fenofibrate 145 MG DAILY 04/14 09 AC 04/17 PO 0813 Furosemide 60 MG DAILY 04/17 09 CAN IV Furosemide 40 MG 7:30 AM, & 4:30 PM 04/16 1630 AC 04/17 IV 0813 Furosemide 60 MG 7:30 AM, & 4:30 PM 04/15 0745 DC 04/16 IV 04/16 1630 0838 Gabapentin 600 MG Q8 04/14 06 04/17 PO 0633 Guaifenesin 600 MG Q12 04/14 1415 AC 04/17 PO 0814 Insulin Aspart 0 AT BEDTIME 04/16 2100 AC 04/16 SC 2203 Insulin Aspart 0 TIDAC 04/14 08 04/17 SC 1213 Insulin Detemir 30 UNITS BID 04/15 0900 04/17 SC 0813 Ipratropium [place] 2.5 ML EVERY 4 HRS/AWAKE 04/16 2000 AC 04/17 INH 1230 Lisinopril 5 MG DAILY 04/14 09 04/17 PO 0814 Magnesium Chloride 64 MG DAILY 04/15 1518 AC 04/17 PO 0815 Oxycodone/ 2 TAB TIDPRN PRN 04/13 2300 04/17 Acetaminophen PO 0634 Polyethylene Glycol 17 GM DAILY 04/14 09 04/16 PO 0839 Prednisone 40 MG DAILY 04/14 09 NH 04/17 PO 0814 Senna/Docusate Sodium 2 TAB DAILY NEEDED PRN 04/14 0115 04/14 PO 0825 Warfarin Sodium 7.5 MG COUMADIN 1700 ONE 04/17 1700 NH PO 04/17 170 Warfarin Sodium 10 MG COUMADIN 1700 ONE 04/17 1700 PO 04/17 1701 Warfarin Sodium 7.5 MG ONCE ONE 04/16 1745 NH 04/16 PO 04/16 1746 1815 Results Last 48 Hrs of Labs/Mics: Laboratory Tests 04/17/18 0600: Anion Gap 11, Estimated GFR > 60, BUN/Creatinine Ratio 39.1 H, PT 19.9 H, INR 1.81 H, CBC w Diff NO MAN DIFF REQ, RBC 4.73, MCV 84.0, MCH 27.5, MCHC 32.8 L, RDW 16.3 H, MPV 9.1, Gran % 75.5 H, Lymphocytes % 16.2 L, Monocytes % 6.9, Eosinophils % 1.1, Basophils % 0.3, Absolute Granulocytes 7.6 H, Absolute Lymphocytes 1.6, Absolute Monocytes 0.7 H, Absolute Eosinophils 0.1, Absolute Basophils 0 04/16/18 0719: Anion Gap 12, Estimated GFR > 60, BUN/Creatinine Ratio 38.3 H, Magnesium 1.9, PT 25.9 H, INR 2.36 H Recent Imaging Studies: Chest x-ray 04/16/18 Mild pulmonary venous congestion, appear new since prior study, otherwise no other significant interval change present. Specifically, no definite radiographic evidence of pulmonary amiodarone toxicity identified. Assessment/Plan Assessment/Plan Assessment: 1. Lower extremity edema related to venous insufficiency, pulmonary hypertension, with stasis dermatitis and venous stasis changes 2. Acute on chronic COPD exacerbation with production of copious amounts of sputum 3. Acute on chronic HFpEF with probable cor pulmonale and right heart failure 4. Diabetes 5. Hypertension 6. History of coronary artery disease, status post stenting; mild cardio myopathy of coronary artery disease with ejection fraction of 50-55% on last echo 03/17 7. Peripheral arterial disease 8. Atrial fibrillation 9. Prior history of DVT 10. Supratherapeutic INR Plan: * Continue IV Lasix * Monitor input and output with daily weights * Check basic metabolic profile daily Continue telemetry? Yes
[2018-04-17 14:26] VITALS: BP 126/72
[2018-04-17 22:46] VITALS: BP 142/86
[2018-04-18 07:05] VITALS: BP 134/76
[2018-04-18 08:25] LABS: PT 22.6 SEC (9.4-12.5)
[2018-04-18 08:28] LABS: ABSOLUTE BASOPHIL COUNT 0 /CUMM (0.0-0.2); ABSOLUTE EOSINOPHIL COUNT 0.2 /CUMM (0.0-0.7); ABSOLUTE GRANULOCYTE CT 6.9 /CUMM (1.4-6.5); ABSOLUTE LYMPH COUNT 1.7 /CUMM (1.2-3.4); ABSOLUTE MONOCYTE COUNT 0.6 /CUMM (0.10-0.60); BASOPHIL % 0.3 % (0.0-2.0); EOSINOPHIL % 2.1 % (0-5); GRANULOCYTE % 73.7 % (42.2-75.2); HEMATOCRIT 39.9 % (42-52); MEAN CORPUSCULAR HGB 27.2 PG (27.0-31.0); MEAN CORPUSCULAR HGB CONC 32.2 G/DL (33.0-37.0); MEAN CORPUSCULAR VOLUME 84.5 FL (80.0-94.0); MEAN PLATELET VOLUME 8.8 FL (7.4-10.4); PLATELET COUNT 255 /CUMM (130-400); RBC DISTRIBUTION WIDTH 16.7 % (11.5-14.5); RED BLOOD CELL CT 4.72 /CUMM (4.70-6.10); WHITE BLOOD CELL COUNT 9.4 /CUMM (4.8-10.8)
--- NOTE | 2018-04-18 09:03 | PN- Housestaff ---
See Addendum Subjective Follow-up For: chf/copd dyspnea Tele-Events Since Last Visit: atrial flutter HR 70s Subjective: patient is still complaining of dyspnea lower extremity edema is improving with diuresis Review of Systems Constitutional: Reports: see HPI. Objective Last 24 Hrs of Vital Signs/I&O Vital Signs Date Time Temp Pulse Resp B/P B/P Pulse O2 O2 Flow FiO2 Mean Ox Delivery Rate 04/18 0832 88 134/76 04/18 0832 88 134/76 04/18 0832 88 134/76 04/18 0800 94 Nasal 2.0L Cannula 04/18 0705 97.7 88 20 134/76 97 Room Air 04/18 0000 Nasal 2.0L Cannula 04/17 2246 98.7 82 20 142/86 98 Room Air 04/17 2150 81 142/80 04/17 1616 93 Nasal 3.0L Cannula 04/17 1600 Nasal 2.0L Cannula 04/17 1426 98.2 80 20 126/72 94 Nasal Cannula Intake & Output 04/18 1600 04/18 0800 04/18 0000 Intake Total 400 400 Output Total 500 2450 Balance -100 -2050 Intake, Oral 400 400 Number 1 Bowel Movements Output, Urine 500 2450 Patient 140.387 kg Weight Weight Chair scale Measurement Method Physical Exam General Appearance: Alert, Oriented X3, Cooperative, Mild Distress, tachypneic, cant speak for prolonged period of time without dyspnea on oxygen Cardiovascular: Regular Rate, Normal S1, Normal S2, No Murmurs Lungs: transmitted upper airway sounds, no wheezing, fine bibasilar crackles Abdomen: Normal Bowel Sounds, Soft, No Tenderness, No Masses Extremities: 2+ lower extremity edema bilateral LE Current Medications: Current Medications Sig/Ann-Marie Start time Last Medication Dose Route Stop Time Status Admin Albuterol Sulfate 3 ML EVERY 4 HRS/AWAKE 04/14 800 AC 04/18 INH 0944 Amiodarone HCl 200 MG DAILY 04/14 900 AC 04/18 PO 0832 Aspirin Buffered 81 MG DAILY 04/14 900 AC 04/18 PO 0832 Atorvastatin Calcium 40 MG 1700 04/14 1700 AC 04/17 PO 1650 Budesonide/ 2 PUF BID 04/14 900 AC 04/18 Formoterol Fumarate INH 0839 Carvedilol 25 MG BID 04/14 900 AC 04/18 PO 0832 Cyanocobalamin 2,000 MCG DAILY 04/14 09 AC 04/18 PO 0832 Docusate Sodium 100 MG BID PRN 04/13 2115 AC 04/16 PO 0835 Fenofibrate 145 MG DAILY 04/14 09 AC 04/18 PO 0832 Furosemide 40 MG 7:30 AM, & 4:30 PM 04/16 1630 AC 04/18 IV 0832 Gabapentin 600 MG Q8 04/14 06 AC 04/18 PO 0616 Guaifenesin 600 MG Q12 04/14 1415 AC 04/18 PO 0832 Insulin Aspart 0 AT BEDTIME 04/16 2100 AC 04/17 SC 2151 Insulin Aspart 0 TIDAC 04/14 08 AC 04/18 SC 0833 Insulin Detemir 30 UNITS BID 04/15 09 AC 04/18 SC 0833 Ipratropium [place] 2.5 ML EVERY 4 HRS/AWAKE 04/16 2000 AC 04/18 INH 0944 Lisinopril 5 MG DAILY 04/14 09 AC 04/18 PO 0832 Magnesium Chloride 64 MG DAILY 04/15 1518 AC 04/18 PO 0832 Oxycodone/ 2 TAB TIDPRN PRN 04/13 2300 AC 04/18 Acetaminophen PO 0616 Polyethylene Glycol 17 GM DAILY 04/14 09 AC 04/16 PO 0839 Prednisone 40 MG DAILY 04/14 09 DC 04/17 PO 0814 Senna/Docusate Sodium 2 TAB DAILY NEEDED PRN 04/14 0115 AC 04/14 PO 0825 Warfarin Sodium 7.5 MG COUMADIN 1700 ONE 04/17 1700 DC PO 04/17 1701 Warfarin Sodium 10 MG COUMADIN 1700 ONE 04/17 1700 DC 04/17 PO 04/17 1701 1650 Last 24 Hrs of Lab/[place] Results Last 24 Hrs of Labs/Mics: Laboratory Tests 04/18/18 0600: Anion Gap 11, Estimated GFR > 60, BUN/Creatinine Ratio 40.0 H, PT 22.6 H, INR 2.06 H, CBC w Diff NO MAN DIFF REQ, RBC 4.72, MCV 84.5, MCH 27.2, MCHC 32.2 L, RDW 16.7 H, MPV 8.8, Gran % 73.7, Lymphocytes % 17.6 L, Monocytes % 6.3, Eosinophils % 2.1, Basophils % 0.3, Absolute Granulocytes 6.9 H, Absolute Lymphocytes 1.7, Absolute Monocytes 0.6, Absolute Eosinophils 0.2, Absolute Basophils 0 Assessment/Plan Assessment: 62-year-old male with a PMH significant for A. fib, left lower extremity DVT, CAD status post PCI, HLD, chronic venous insufficiency, PVD on 2 L O2 baseline, type 2 diabetes mellitus who presented to [facility] complaining of worsening shortness of breath, she was referred into the ED by Dr. Zhu from the wound care center. Acute on chronic hypoxemic respiratory failure Multifactorial COPD exacerbation, steroids d/c'd in consultation with pulmonary HFpEF last LVEF 50-55%, significant negative fluid balance Strict I/O's, daily weights Continue lasix IV 40mg BID Continue TRC/nebs, symbicort continue Mucinex twice daily Patient could not tolerate chest CT due to shortness of breath when supine, Chest x-ray showed pulmonary vascular congestion Continue nebulized albuterol and ipatropium Discuss with cardiology discharge diuretic regimen, bumex/metolazone, CHF clinic? Follow up pulmonology recommendations Atrial fibrillation: INR 2.06 this morning Coumadin 10mg today Continue carvedilol CAD: Continue aspirin, statin, and carvedilol DM: Accuchecks TIDAC, 200-350 Levemir 30units bid Novolog insulin sliding scale Diabetic diet, 2gram sodium restriction DVT ppx-on coumadin Full code Problem List: 1. CHF (congestive heart failure) 2. Dyspnea on exertion 3. Dyspnea 4. Lower extremity edema 5. (HFpEF) heart failure with preserved ejection fraction Pain Ratin Pain Location: n/a Pain Goal: Pain 4 or less Pain Plan: prn Tomorrow's Labs & Rationales: BEP, PT/INR
--- NOTE | 2018-04-18 10:31 | PN- Cardiology ---
Subjective Subjective: The patient is continuing to diurese well. Shortness of breath and edema are improving. No chest pain. No palpitations. No nausea or vomiting. No diaphoresis. The patient reports that he was taking only 40 mg twice a day of Lasix at home rather than the 60 mg twice a day which was prescribed on his last discharge Objective Vital Signs and I&Os Vital Signs Date Time Temp Pulse Resp B/P B/P Pulse O2 O2 Flow FiO2 Mean Ox Delivery Rate 04/18 0832 88 134/76 04/18 0832 88 134/76 04/18 0832 88 134/76 04/18 0800 94 Nasal 2.0L Cannula 04/18 0705 97.7 88 20 134/76 97 Room Air 04/18 0000 Nasal 2.0L Cannula 04/17 2246 98.7 82 20 142/86 98 Room Air 04/17 2150 81 142/80 04/17 1616 93 Nasal 3.0L Cannula 04/17 1600 Nasal 2.0L Cannula 04/17 1426 98.2 80 20 126/72 94 Nasal Cannula Intake & Output 04/18 0800 04/18 0000 04/17 1600 04/17 0800 04/17 0000 Intake Total 400 400 550 Output Total 500 2450 7612 475 0252 Balance -100 -2050 -1150 -900 -2300 Intake, IV 50 Intake, Oral 400 400 500 Number 1 Bowel Movements Output, Urine 500 2450 7196 136 3314 Patient 310 lb Weight Weight Chair scale Measurement Method Physical Exam: Gen: NAD HEENT: normal Lungs: Scattered rhonchi bilateral, normal resp. effort Heart: RRR, S1, S2, no murmurs Abdomen: Soft, nontender, no masses Extremities: 2+ edema Neuro: Alert and oriented x 3, cranial nerves intact Current Medications: Current Medications Sig/Ann-Marie Start time Last Medication Dose Route Stop Time Status Admin Albuterol Sulfate 3 ML EVERY 4 HRS/AWAKE 04/14 800 AC 04/18 INH 0944 Amiodarone HCl 200 MG DAILY 04/14 900 AC 04/18 PO 0832 Aspirin Buffered 81 MG DAILY 04/14 900 AC 04/18 PO 0832 Atorvastatin Calcium 40 MG 1700 04/14 1700 AC 04/17 PO 1650 Budesonide/ 2 PUF BID 04/14 900 AC 04/18 Formoterol Fumarate INH 0839 Carvedilol 25 MG BID 04/14 09 AC 04/18 PO 0832 Cyanocobalamin 2,000 MCG DAILY 04/14 09 AC 04/18 PO 0832 Docusate Sodium 100 MG BID PRN 04/13 2115 AC 04/16 PO 0835 Fenofibrate 145 MG DAILY 04/14 09 AC 04/18 PO 0832 Furosemide 80 MG 7:30 AM, & 4:30 PM 04/18 1630 AC PO Furosemide 40 MG 7:30 AM, & 4:30 PM 04/16 1630 DC 04/18 IV 0832 Gabapentin 600 MG Q8 04/14 06 AC 04/18 PO 0616 Guaifenesin 600 MG Q12 04/14 1415 AC 04/18 PO 0832 Insulin Aspart 0 AT BEDTIME 04/16 2100 AC 04/17 SC 2151 Insulin Aspart 0 TIDAC 04/14 08 AC 04/18 SC 0833 Insulin Detemir 30 UNITS BID 04/15 09 AC 04/18 SC 0833 Ipratropium [place] 2.5 ML EVERY 4 HRS/AWAKE 04/16 2000 AC 04/18 INH 0944 Lisinopril 5 MG DAILY 04/14 09 AC 04/18 PO 0832 Magnesium Chloride 64 MG DAILY 04/15 1518 AC 04/18 PO 0832 Oxycodone/ 2 TAB TIDPRN PRN 04/13 2300 AC 04/18 Acetaminophen PO 0616 Polyethylene Glycol 17 GM DAILY 04/14 09 AC 04/16 PO 0839 Prednisone 40 MG DAILY 04/14 09 DC 04/17 PO 0814 Senna/Docusate Sodium 2 TAB DAILY NEEDED PRN 04/14 0115 AC 04/14 PO 0825 Warfarin Sodium 10 MG COUMADIN 1700 ONE 04/18 1700 AC PO 04/18 1701 Warfarin Sodium 7.5 MG COUMADIN 1700 ONE 04/17 1700 DC PO 04/17 1701 Warfarin Sodium 10 MG COUMADIN 1700 ONE 04/17 1700 DC 04/17 PO 04/17 1701 1650 Results Last 48 Hrs of Labs/Mics: Laboratory Tests 04/18/18 0600: Anion Gap 11, Estimated GFR > 60, BUN/Creatinine Ratio 40.0 H, PT 22.6 H, INR 2.06 H, CBC w Diff NO MAN DIFF REQ, RBC 4.72, MCV 84.5, MCH 27.2, MCHC 32.2 L, RDW 16.7 H, MPV 8.8, Gran % 73.7, Lymphocytes % 17.6 L, Monocytes % 6.3, Eosinophils % 2.1, Basophils % 0.3, Absolute Granulocytes 6.9 H, Absolute Lymphocytes 1.7, Absolute Monocytes 0.6, Absolute Eosinophils 0.2, Absolute Basophils 0 / 0600: Anion Gap 11, Estimated GFR > 60, BUN/Creatinine Ratio 39.1 H, PT 19.9 H, INR 1.81 H, CBC w Diff NO MAN DIFF REQ, RBC 4.73, MCV 84.0, MCH 27.5, MCHC 32.8 L, RDW 16.3 H, MPV 9.1, Gran % 75.5 H, Lymphocytes % 16.2 L, Monocytes % 6.9, Eosinophils % 1.1, Basophils % 0.3, Absolute Granulocytes 7.6 H, Absolute Lymphocytes 1.6, Absolute Monocytes 0.7 H, Absolute Eosinophils 0.1, Absolute Basophils 0 Assessment/Plan Assessment/Plan Assessment: 1. Lower extremity edema related to venous insufficiency, pulmonary hypertension, with stasis dermatitis and venous stasis changes 2. Acute on chronic COPD exacerbation with production of copious amounts of sputum 3. Acute on chronic HFpEF with probable cor pulmonale and right heart failure 4. Diabetes 5. Hypertension 6. History of coronary artery disease, status post stenting; mild cardio myopathy of coronary artery disease with ejection fraction of 50-55% on last echo 03/17 7. Peripheral arterial disease 8. Atrial fibrillation 9. Prior history of DVT 10. Supratherapeutic INR Plan: * Change Lasix to 80 mg p.o. twice daily * Monitor input and output with daily weights * Check basic metabolic profile daily * Dose warfarin for INR 2-3 Continue telemetry? Yes
--- NOTE | 2018-04-18 11:04 | PN- Pulmonary ---
Subjective HPI/Critical Care Issues: pt. seen and examined. dyspnea on exertion continues but slightly improved sputum less in volume and yellow edema persistent Objective Current Medications: Current Medications Sig/Ann-Marie Start time Last Medication Dose Route Stop Time Status Admin Albuterol Sulfate 3 ML EVERY 4 HRS/AWAKE 04/14 08 AC 04/18 INH 0944 Amiodarone HCl 200 MG DAILY 04/14 09 AC 04/18 PO 0832 Aspirin Buffered 81 MG DAILY 04/14 09 AC 04/18 PO 0832 Atorvastatin Calcium 40 MG 1700 04/14 1700 AC 04/17 PO 1650 Budesonide/ 2 PUF BID 04/14 900 AC 04/18 Formoterol Fumarate INH 0839 Carvedilol 25 MG BID 04/14 900 AC 04/18 PO 0832 Cyanocobalamin 2,000 MCG DAILY 04/14 900 AC 04/18 PO 0832 Docusate Sodium 100 MG BID PRN 04/13 2115 AC 04/16 PO 0835 Fenofibrate 145 MG DAILY 04/14 900 AC 04/18 PO 0832 Furosemide 80 MG 7:30 AM, & 4:30 PM 04/18 1630 AC PO Furosemide 40 MG 7:30 AM, & 4:30 PM 04/16 1630 DC 04/18 IV 0832 Gabapentin 600 MG Q8 04/14 06 AC 04/18 PO 0616 Guaifenesin 600 MG Q12 04/14 1415 AC 04/18 PO 0832 Insulin Aspart 0 AT BEDTIME 04/16 2100 AC 04/17 SC 2151 Insulin Aspart 0 TIDAC 04/14 08 AC 04/18 SC 0833 Insulin Detemir 30 UNITS BID 04/15 09 AC 04/18 SC 0833 Ipratropium [place] 2.5 ML EVERY 4 HRS/AWAKE 04/16 2000 AC 04/18 INH 0944 Lisinopril 5 MG DAILY 04/14 09 AC 04/18 PO 0832 Magnesium Chloride 64 MG DAILY 04/15 1518 AC 04/18 PO 0832 Oxycodone/ 2 TAB TIDPRN PRN 04/13 2300 AC 04/18 Acetaminophen PO 0616 Polyethylene Glycol 17 GM DAILY 04/14 09 AC 04/16 PO 0839 Prednisone 40 MG DAILY 04/14 09 DC 04/17 PO 0814 Senna/Docusate Sodium 2 TAB DAILY NEEDED PRN 05/16 0115 AC 04/14 PO 0825 Warfarin Sodium 10 MG COUMADIN 1700 ONE 04/18 1700 AC PO 04/18 1701 Warfarin Sodium 7.5 MG COUMADIN 170 ONE 04/17 1700 DC PO 04/17 1701 Warfarin Sodium 10 MG COUMADIN 1700 ONE 04/17 1700 DC 04/17 PO 04/17 1701 1650 Vital Signs & I&O Last 24 Hrs of Vitals and I&O: Vital Signs Date Time Temp Pulse Resp B/P B/P Pulse O2 O2 Flow FiO2 Mean Ox Delivery Rate 04/18 0944 94 Nasal 2.0L Cannula 04/18 0832 88 134/76 04/18 0832 88 134/76 04/18 0832 88 134/76 04/18 0800 94 Nasal 2.0L Cannula 04/18 0705 97.7 88 20 134/76 97 Room Air 04/18 0000 Nasal 2.0L Cannula 04/17 2246 98.7 82 20 142/86 98 Room Air 04/17 2150 81 142/80 04/17 1616 93 Nasal 3.0L Cannula 04/17 1600 Nasal 2.0L Cannula 04/17 1426 98.2 80 20 126/72 94 Nasal Cannula Intake & Output 04/18 1600 04/18 0800 05 0000 Intake Total 400 400 Output Total 500 2450 Balance -100 -2050 Intake, Oral 400 400 Number 1 Bowel Movements Output, Urine 500 2450 Patient 310 lb Weight Weight Chair scale Measurement Method Exam General Appearance: no apparent distress, alert, awake Head: atraumatic, normal appearance Respiratory: crackles, rhonchi, wheezing Cardiovascular: regular rate/rhythm, edema Abdomen: soft, non-tender Extremities: swelling (dressing intact) Cranial Nerves: normal hearing, normal speech Results Last 24 Hrs of Lab Results: Laboratory Tests 04/18/18 0600: Anion Gap 11, Estimated GFR > 60, BUN/Creatinine Ratio 40.0 H, PT 22.6 H, INR 2.06 H, CBC w Diff NO MAN DIFF REQ, RBC 4.72, MCV 84.5, MCH 27.2, MCHC 32.2 L, RDW 16.7 H, MPV 8.8, Gran % 73.7, Lymphocytes % 17.6 L, Monocytes % 6.3, Eosinophils % 2.1, Basophils % 0.3, Absolute Granulocytes 6.9 H, Absolute Lymphocytes 1.7, Absolute Monocytes 0.6, Absolute Eosinophils 0.2, Absolute Basophils 0 Impression/Plan Impression/Plan Impression/Plan: Impression 62 year old man CHF exacerbation COPD stable at this point untreated TOMASZ secondary to patient wishes knowing risks Plan -agree with cardiology - plan to switch to lasix 80mg po bid and monitor effectiveness while in hospital prior to discharge -continue albuterol/ipratropium q4h -off prednisone -continue to monitor glucose -declines TOMASZ tx knowing risks DVT prophylaxis at all times
[2018-04-18 14:08] VITALS: BP 122/70
[2018-04-18 21:57] VITALS: BP 132/70
[2018-04-19 06:52] VITALS: BP 132/72
--- NOTE | 2018-04-19 07:05 | PN- Housestaff ---
See Addendum Subjective Follow-up For: RL CHF/COPD exacerbation Tele-Events Since Last Visit: A fib with HR 60s-80s Review of Systems Constitutional: Reports: see HPI. Objective Last 24 Hrs of Vital Signs/I&O Vital Signs Date Time Temp Pulse Resp B/P B/P Pulse O2 O2 Flow FiO2 Mean Ox Delivery Rate 04/19 0652 97.6 68 18 132/72 99 Nasal Cannula 04/19 0000 Nasal 2.0L Cannula 04/18 2157 97.3 76 20 132/70 97 Nasal Cannula 04/18 2144 81 / 1655 96 Nasal 3.0L Cannula 04/18 1600 Nasal 2.0L Cannula 04/18 1408 98.1 77 20 122/70 96 Nasal Cannula 04/18 0944 94 Nasal 2.0L Cannula 04/18 0832 88 134/76 04/18 0832 88 134/76 04/18 0832 88 134/76 04/18 0800 94 Nasal 2.0L Cannula 04/18 0705 97.7 88 20 134/76 97 Room Air Intake & Output 04/19 0800 04/19 0000 04/18 1600 Intake Total 500 700 820 Output Total 870 724 4183 Balance 100 -200 -625 Intake, IV 20 Intake, Oral 500 700 800 Output, Urine 780 338 1703 Patient 309 lb Weight Physical Exam General Appearance: Alert, Oriented X3, Cooperative, Mild Distress, mild distress secondary to pain Skin Temp/Moisture Exam: Warm/Dry Cardiovascular: Regular Rate, Normal S1, Normal S2, irregularly irregular rhythm Lungs: diminished breath sounds, scant wheezing Abdomen: Normal Bowel Sounds, Soft, No Tenderness Current Medications: Current Medications Sig/Ann-Marie Start time Last Medication Dose Route Stop Time Status Admin Albuterol Sulfate 3 ML EVERY 4 HRS/AWAKE 04/14 08 AC 04/19 INH 0521 Amiodarone HCl 200 MG DAILY 04/14 900 AC 04/18 PO 0832 Aspirin Buffered 81 MG DAILY 04/14 900 AC 04/18 PO 0832 Atorvastatin Calcium 40 MG 1700 04/14 1700 AC 04/18 PO 1603 Budesonide/ 2 PUF BID 04/14 900 AC 04/18 Formoterol Fumarate INH 2142 Carvedilol 25 MG BID 04/14 900 AC 04/18 PO 2144 Cyanocobalamin 2,000 MCG DAILY 04/14 900 AC 04/18 PO 0832 Docusate Sodium 100 MG BID PRN 04/13 2115 AC 04/16 PO 0835 Fenofibrate 145 MG DAILY 04/14 09 AC 04/18 PO 0832 Furosemide 80 MG 7:30 AM, & 4:30 PM 04/18 1630 AC 04/18 PO 1603 Furosemide 40 MG 7:30 AM, & 4:30 PM 04/16 1630 DC 04/18 IV 0832 Gabapentin 600 MG Q8 04/14 06 AC 04/19 PO 0548 Guaifenesin 600 MG Q12 04/14 1415 AC 04/18 PO 2144 Hydromorphone HCl 1 MG ONCE ONE 04/18 1630 DC 04/18 IV 04/18 1631 1646 Insulin Aspart 0 AT BEDTIME 04/16 2100 AC 04/17 SC 2151 Insulin Aspart 0 TIDAC 04/14 0800 AC 04/18 SC 1210 Insulin Detemir 30 UNITS BID 04/15 0900 AC 04/18 SC 2145 Ipratropium [place] 2.5 ML EVERY 4 HRS/AWAKE 04/16 2000 AC 04/19 INH 0521 Ketorolac 30 MG ONCE ONE 04/19 0315 DC 04/19 Tromethamine IV 04/19 0316 0309 Ketorolac 30 MG ONCE ONE 04/18 1630 DC 04/18 Tromethamine IV 04/18 1631 1747 Lisinopril 5 MG DAILY 04/14 09 AC 04/18 PO 0832 Magnesium Chloride 64 MG DAILY 04/15 1518 AC 04/18 PO 0832 Oxycodone/ 2 TAB TIDPRN PRN 04/13 2300 AC 04/19 Acetaminophen PO 0549 Polyethylene Glycol 17 GM DAILY 04/14 09 AC 04/16 PO 0839 Senna/Docusate Sodium 2 TAB DAILY NEEDED PRN 04/14 0115 AC 04/14 PO 0825 Warfarin Sodium 10 MG COUMADIN 1700 ONE 04/18 1700 DC 04/18 PO 04/18 1701 1604 Last 24 Hrs of Lab/[place] Results Last 24 Hrs of Labs/Mics: Laboratory Tests 04/19/18 0637: Anion Gap 8, Estimated GFR 47 L, BUN/Creatinine Ratio 37.3 H, PT 35.6 H, INR 3.23 H Assessment/Plan Assessment: Patient is a 62-year-old male with a PMH significant for A. fib, left lower extremity DVT, CAD status post PCI, HLD, chronic venous insufficiency, PVD on 2 L O2 baseline, type 2 diabetes mellitus who presented to [facility] complaining of worsening shortness of breath, she was referred into the ED by Dr. Zhu from the wound care center. #RL acute increase in BUN and Cr overnight. Lasix was converted from IV to PO yesterday. Patient also got ketoralac IV 30 mg x 2 within the last 24 hours. - will avoid nephrotoxic medications - follow-up repeat BEP and will consider nephrology consult if renal function is worsening - will decrease lasix dose for today #Lower extremity pain patient's pain had been well controlled with gabapentin and percocet until the weekend, when he began having worse LE pain. He was given dilauded at one point this weekend and ketoralac but pain remains uncontrolled. - will change to oxicodone from percocet and increase dose #dyspnea, multifactorial Patient's wheezing is improving with breathing treatments, however he continues to get severe dyspnea with exertion and even at rest simply by talking. -Lasix 60 mg PO daily, given RL will decrease lasix today -Continue TRC/nebs, continue Mucinex twice daily -hold steroids for now #Supratherapeutic INR, resolved -We will dose 7.5 mg Coumadin today, patient's home dose is 10 mg however he was supratherapeutic on admission, will recheck INR tomorrow and adjust Coumadin accordingly #Chronic medical problems including A. fib, CAD, DM, HTN -We will continue home medical regimen, holding oral hypoglycemics, Accu-Cheks 3 times daily before meals and at bedtime, sliding NovoLog sliding increased dosage today due to uncontrolled blood sugars, we have restarted his Levemir 30 units twice daily as his fingerstick glucose readings were elevated overnight Diet: Diabetic, sodium restriction DVT prophylaxis: coumadin, Alps CODE STATUS: Full code Problem List: 1. Lower extremity edema 2. Dyspnea 3. CHF (congestive heart failure) 4. Acute kidney injury Pain Ratin Pain Location: Lower extremities Pain Goal: Pain 4 or less Pain Plan: pain pathway, will avoid nephrotoxic medications Tomorrow's Labs & Rationales: bep, INR
[2018-04-19 08:18] LABS: PT 35.6 SEC (9.4-12.5)
--- NOTE | 2018-04-19 11:52 | PN- Cardiology ---
Subjective Subjective: The patient complains of worsening edema and discomfort in his lower extremities since changing to oral Lasix. No chest pain. No palpitations. No diaphoresis. Objective Vital Signs and I&Os Vital Signs Date Time Temp Pulse Resp B/P B/P Pulse O2 O2 Flow FiO2 Mean Ox Delivery Rate 04/19 1624 98 Nasal 2.0L Cannula 04/19 1424 98.2 82 20 128/68 94 Nasal Cannula 04/19 1046 94 Nasal 3.0L Cannula 04/19 0800 94 Nasal 2.0L Cannula 04/19 0755 68 132/72 04/19 0755 68 132/72 04/19 0755 68 132/72 04/19 0652 97.6 68 18 132/72 99 Nasal Cannula 04/19 0000 Nasal 2.0L Cannula 04/18 2157 97.3 76 20 132/70 97 Nasal Cannula 04/18 2144 81 Intake & Output 04/19 1600 04/19 0800 04/19 0000 04/18 1600 04/18 0800 04/18 0000 Intake Total 620 500 700 820 400 400 Output Total 880 447 866 6218 500 2450 Balance -260 100 -200 -625 -100 -2050 Intake, IV 20 20 Intake, Oral 600 500 700 800 400 400 Number 1 Bowel Movements Output, Urine 880 715 183 2922 500 2450 Patient 309 lb 310 lb Weight Weight Chair scale Measurement Method Physical Exam: Gen: NAD HEENT: normal Lungs: Scattered rhonchi bilateral, normal resp. effort Heart: RRR, S1, S2, no murmurs Abdomen: Soft, nontender, no masses Extremities: 2+ edema Neuro: Alert and oriented x 3, cranial nerves intact Current Medications: Current Medications Sig/Ann-Marie Start time Last Medication Dose Route Stop Time Status Admin Albuterol Sulfate 3 ML EVERY 4 HRS/AWAKE 04/14 08 AC 04/19 INH 1624 Amiodarone HCl 200 MG DAILY 04/14 09 AC 04/19 PO 0755 Aspirin Buffered 81 MG DAILY 04/14 09 AC 04/19 PO 0755 Atorvastatin Calcium 40 MG 1700 04/14 1700 AC 04/19 PO 1701 Budesonide/ 2 PUF BID 04/14 09 AC 04/19 Formoterol Fumarate INH 0751 Bumetanide 2 MG 0830,1630 04/20 0830 AC PO Bumetanide 2 MG BID 04/19 1001 DC 04/19 PO 1719 Carvedilol 25 MG BID 04/14 09 AC 04/19 PO 0755 Cyanocobalamin 2,000 MCG DAILY 04/14 09 AC 04/19 PO 0754 Docusate Sodium 100 MG BID PRN 04/13 2115 AC 04/16 PO 0835 Fenofibrate 145 MG DAILY 04/14 09 AC 04/19 PO 0755 Furosemide 80 MG 7:30 AM, & 4:30 PM 04/18 1630 DC 04/18 PO 1603 Gabapentin 900 MG Q8 04/19 1400 AC 04/19 PO 1331 Gabapentin 600 MG Q8 04/14 06 DC 04/19 PO 0548 Guaifenesin 600 MG Q12 04/14 1415 AC 04/19 PO 0755 Hydromorphone HCl 0.6 MG ONCE ONE 04/19 1015 DC 04/19 IV 04/19 1016 1035 Insulin Aspart 0 AT BEDTIME 04/16 2100 AC 04/17 SC 2151 Insulin Aspart 0 TIDAC 04/14 08 AC 04/19 SC 1159 Insulin Detemir 30 UNITS BID 04/15 0900 AC 04/19 SC 0753 Ipratropium [place] 2.5 ML EVERY 4 HRS/AWAKE 04/16 2000 AC 04/19 INH 1624 Ketorolac 30 MG ONCE ONE 04/19 0315 DC 04/19 Tromethamine IV 04/19 0316 0309 Lisinopril 5 MG DAILY 04/14 09 DC 04/19 PO 0755 Magnesium Chloride 64 MG DAILY 04/15 1518 AC 04/19 PO 0754 Morphine Sulfate 2 MG ONCE ONE 04/19 1015 CAN IV 04/19 1016 Oxycodone HCl 15 MG Q6P PRN 04/19 1015 AC 04/19 PO 1331 Oxycodone/ 2 TAB TIDPRN PRN 04/13 2300 DC 04/19 Acetaminophen PO 0549 Polyethylene Glycol 17 GM DAILY 04/14 09 AC 04/16 PO 0839 Senna/Docusate Sodium 2 TAB DAILY NEEDED PRN 04/14 0115 AC 04/14 PO 0825 Warfarin Sodium 5 MG COUMADIN 1700 04/19 1700 AC 04/19 PO 04/19 2359 1701 Results Last 48 Hrs of Labs/Mics: Laboratory Tests 04/19/18 1355: Anion Gap 12, Estimated GFR 41 L, BUN/Creatinine Ratio 33.5 H 04/19/18 0637: Anion Gap 8, Estimated GFR 47 L, BUN/Creatinine Ratio 37.3 H, PT 35.6 H, INR 3.23 H 04/18/18 0600: Anion Gap 11, Estimated GFR > 60, BUN/Creatinine Ratio 40.0 H, PT 22.6 H, INR 2.06 H, CBC w Diff NO MAN DIFF REQ, RBC 4.72, MCV 84.5, MCH 27.2, MCHC 32.2 L, RDW 16.7 H, MPV 8.8, Gran % 73.7, Lymphocytes % 17.6 L, Monocytes % 6.3, Eosinophils % 2.1, Basophils % 0.3, Absolute Granulocytes 6.9 H, Absolute Lymphocytes 1.7, Absolute Monocytes 0.6, Absolute Eosinophils 0.2, Absolute Basophils 0 Assessment/Plan Assessment/Plan Assessment: 1. Lower extremity edema related to venous insufficiency, pulmonary hypertension, with stasis dermatitis and venous stasis changes 2. Acute on chronic COPD exacerbation with production of copious amounts of sputum 3. Acute on chronic HFpEF with probable cor pulmonale and right heart failure 4. Diabetes 5. Hypertension 6. History of coronary artery disease, status post stenting; mild cardio myopathy of coronary artery disease with ejection fraction of 50-55% on last echo 03/17 7. Peripheral arterial disease 8. Atrial fibrillation 9. Prior history of DVT 10. Supratherapeutic INR Plan: * Given poor response to Lasix, will change to Bumex 2 milligrams p.o. b.i.d. * Monitor input and output with daily weights * Check basic metabolic profile daily * Dose warfarin for INR 2-3 Continue telemetry? Yes
[2018-04-19 14:24] VITALS: BP 128/68
--- NOTE | 2018-04-19 15:51 | PN- Pulmonary ---
Subjective HPI/Critical Care Issues: Patient seen and examined this morning. He received ketorolac overnight twice for pain. Currently pain is controlled with pyloric. His creatinine is now 1.5. Overall his respiratory status is improved. She does not feel that the Lasix provided adequate urine output. He was switched to Bumex in transition. Objective Current Medications: Current Medications Sig/Ann-Marie Start time Last Medication Dose Route Stop Time Status Admin Albuterol Sulfate 3 ML EVERY 4 HRS/AWAKE 04/14 0800 AC 04/19 INH 1036 Amiodarone HCl 200 MG DAILY 04/14 09 AC 04/19 PO 0755 Aspirin Buffered 81 MG DAILY 04/14 09 AC 04/19 PO 0755 Atorvastatin Calcium 40 MG 1700 04/14 1700 AC 04/18 PO 1603 Budesonide/ 2 PUF BID 04/14 09 AC 04/19 Formoterol Fumarate INH 0751 Bumetanide 2 MG BID 04/19 1001 AC 04/19 PO 1125 Carvedilol 25 MG BID 04/14 09 AC 04/19 PO 0755 Cyanocobalamin 2,000 MCG DAILY 04/14 09 AC 04/19 PO 0754 Docusate Sodium 100 MG BID PRN 04/13 2115 AC 04/16 PO 0835 Fenofibrate 145 MG DAILY 04/14 09 AC 04/19 PO 0755 Furosemide 80 MG 7:30 AM, & 4:30 PM 04/18 1630 AC 04/18 PO 1603 Gabapentin 900 MG Q8 04/19 1400 AC 04/19 PO 1331 Gabapentin 600 MG Q8 04/14 0600 DC 04/19 PO 0548 Guaifenesin 600 MG Q12 04/14 1415 AC 04/19 PO 0755 Hydromorphone HCl 0.6 MG ONCE ONE 04/19 1015 DC 04/19 IV 04/19 1016 1035 Hydromorphone HCl 1 MG ONCE ONE 04/18 1630 DC 04/18 IV 04/18 1631 1646 Insulin Aspart 0 AT BEDTIME 04/16 2100 AC 04/17 SC 2151 Insulin Aspart 0 TIDAC 04/14 0800 AC 04/19 SC 1159 Insulin Detemir 30 UNITS BID 04/15 0900 AC 04/19 SC 0753 Ipratropium [place] 2.5 ML EVERY 4 HRS/AWAKE 04/16 2000 AC 04/19 INH 1036 Ketorolac 30 MG ONCE ONE 04/19 0315 DC 04/19 Tromethamine IV 04/19 0316 0309 Ketorolac 30 MG ONCE ONE 04/18 1630 DC 04/18 Tromethamine IV 04/18 1631 1747 Lisinopril 5 MG DAILY 04/14 0900 DC 04/19 PO 0755 Magnesium Chloride 64 MG DAILY 04/15 1518 AC 04/19 PO 0754 Morphine Sulfate 2 MG ONCE ONE 04/19 1015 CAN IV 04/19 1016 Oxycodone HCl 15 MG Q6P PRN 04/19 1015 AC 04/19 PO 1331 Oxycodone/ 2 TAB TIDPRN PRN 04/13 2300 DC 04/19 Acetaminophen PO 0549 Polyethylene Glycol 17 GM DAILY 04/14 09 AC 04/16 PO 0839 Senna/Docusate Sodium 2 TAB DAILY NEEDED PRN 04/14 0115 AC 04/14 PO 0825 Warfarin Sodium 5 MG COUMADIN 1700 04/19 1700 AC PO 04/19 2359 Warfarin Sodium 10 MG COUMADIN 1700 ONE 04/18 1700 DC 04/18 PO 04/18 1701 1604 Vital Signs & I&O Last 24 Hrs of Vitals and I&O: Vital Signs Date Time Temp Pulse Resp B/P B/P Pulse O2 O2 Flow FiO2 Mean Ox Delivery Rate 04/19 1424 98.2 82 20 128/68 94 Nasal Cannula 04/19 1046 94 Nasal 3.0L Cannula 04/19 0800 94 Nasal 2.0L Cannula 04/19 0755 68 132/72 04/19 0755 68 132/72 04/19 0755 68 132/72 04/19 0652 97.6 68 18 132/72 99 Nasal Cannula 04/19 0000 Nasal 2.0L Cannula 04/18 2157 97.3 76 20 132/70 97 Nasal Cannula 04/18 2144 81 04/18 1655 96 Nasal 3.0L Cannula 04/18 1600 Nasal 2.0L Cannula Intake & Output 04/19 1600 04/19 0800 04/19 0000 Intake Total 620 500 700 Output Total 880 400 900 Balance -260 100 -200 Intake, IV 20 Intake, Oral 600 500 700 Output, Urine 880 400 900 Patient 309 lb Weight Exam Other Physical Findings: gen awake and alert head/neck - nasal cannula cvs s1, s2 lungs bilateral crackles improved abd obese ext wrapping intact, edematous/pitting Results Last 24 Hrs of Lab Results: Laboratory Tests 04/19/18 1355: Anion Gap 12, Estimated GFR 41 L, BUN/Creatinine Ratio 33.5 H 04/19/18 0637: Anion Gap 8, Estimated GFR 47 L, BUN/Creatinine Ratio 37.3 H, PT 35.6 H, INR 3.23 H Impression/Plan Impression/Plan Impression/Plan: Impression 62 year old man CHF exacerbation COPD stable at this point untreated TOMASZ secondary to patient wishes knowing risks RL - diuresis (prerenal) vs NSAID (ketorolac) induced Plan -switched to bumex, lasix insufficient urine output -monitor creatinine if worsens would obtain nephrology consultation -avoid nsaids/nephrotoxic agents -continue albuterol/ipratropium q4h -continue to monitor glucose -declines TOMASZ tx knowing risks Please do not use steroids without discussing with the pulmonary service DVT prophylaxis at all times
[2018-04-20 06:25] VITALS: BP 150/80
--- NOTE | 2018-04-20 07:26 | PN- Housestaff ---
Hector VILLASENOR,Lenard 04/20/18 0725: Subjective Follow-up For: RL Dyspnea 2/2 CHF/COPD Exacerbation A.fib Tele-Events Since Last Visit: Atrial Fibrillation HR: 65-110 Subjective: Patient was seen and examined today. States his breathing has improved with the duoneb treatments however states he still has to stop to catch his breath when getting up to walk around. Patient denies chest pain, palpitations, n/v, abdominal pain. Continues to have lower extremity swelling -both legs are wrapped in bandages. Spoke to patient brief about using the CPAP machine for TOMASZ. States he will consider it after speaking with his continuous mining operator, Dr. Worthy. Review of Systems Constitutional: Reports: see HPI. Cardiovascular: Reports: edema, orthopena. Respiratory: Reports: short of breath, wheezing. Gastrointestinal: Reports: no symptoms. Genitourinary: Reports: frequency (on diuretics). Musculoskeletal: Reports: no symptoms. Objective Last 24 Hrs of Vital Signs/I&O Vital Signs Date Time Temp Pulse Resp B/P B/P Pulse O2 O2 Flow FiO2 Mean Ox Delivery Rate 04/20 0902 98.4 93 20 150/80 04/20 0902 150/80 04/20 0841 97 Nasal 2.0L Cannula 04/20 0800 94 Nasal 2.0L Cannula 04/20 0625 98.4 93 20 150/80 92 Nasal 2.0L Cannula 04/20 0000 94 Nasal 2.0L Cannula 04/19 2045 109 132/78 04/19 1624 98 Nasal 2.0L Cannula 04/19 1600 Nasal 2.0L Cannula 04/19 1424 98.2 82 20 128/68 94 Nasal Cannula Intake & Output 04/20 1600 04/20 0800 04/20 0000 Intake Total 600 1500 Output Total 725 4300 Balance -125 -2800 Intake, IV 0 Intake, Oral 600 1500 Number 0 Bowel Movements Output, Urine 725 4300 Patient 307 lb Weight Weight Standing Scale Measurement Method Physical Exam General Appearance: Alert, Oriented X3, Cooperative, No Acute Distress HEENT: Atraumatic, Mucous Membr. moist/pink Cardiovascular: Normal S1, Normal S2, irregular rate Lungs: bilateral prolonged expiratory wheezing and rales Abdomen: Normal Bowel Sounds, Soft, No Tenderness Extremities: lower extremities covered with bandages, pitting edema seen through bandage up to knee Current Medications: Current Medications Sig/Ann-Marie Start time Last Medication Dose Route Stop Time Status Admin Albuterol Sulfate 3 ML EVERY 4 HRS/AWAKE 04/14 08 AC 04/20 INH 0827 Amiodarone HCl 200 MG DAILY 04/14 09 AC 04/20 PO 0902 Aspirin Buffered 81 MG DAILY 04/14 09 AC 04/20 PO 0902 Atorvastatin Calcium 40 MG 1700 04/14 1700 AC 04/19 PO 1701 Budesonide/ 2 PUF BID 04/14 09 04/20 Formoterol Fumarate INH 0902 Bumetanide 2 MG 0830,1630 04/20 0830 AC 04/20 PO 0801 Bumetanide 2 MG BID 04/19 1001 DC 04/19 PO 1719 Carvedilol 25 MG BID 04/14 09 AC 04/20 PO 0902 Cyanocobalamin 2,000 MCG DAILY 04/14 09 AC 04/20 PO 0902 Docusate Sodium 100 MG .STK-MED ONE 04/19 190 DC PO 04/19 190 Docusate Sodium 100 MG BID PRN 04/13 211 AC 04/19 PO 1909 Fenofibrate 145 MG DAILY 04/14 09 04/20 PO 0902 Furosemide 80 MG 7:30 AM, & 4:30 PM 04/18 1630 MS 04/18 PO 1603 Gabapentin 900 MG Q8 04/19 1400 AC 04/20 PO 0645 Guaifenesin 600 MG Q12 04/14 1415 AC 04/20 PO 0902 Insulin Aspart 0 AT BEDTIME 04/16 2100 AC 04/17 OK 2151 Insulin Aspart 0 TIDAC 04/14 08 04/20 SC 0759 Insulin Detemir 30 UNITS BID 04/15 09 04/20 SC 0901 Ipratropium [place] 2.5 ML EVERY 4 HRS/AWAKE 04/16 2000 AC 04/20 INH 0828 Ketorolac 30 MG .STK-MED ONE 04/19 1746 DC Tromethamine IV 04/19 174 Magnesium Chloride 64 MG DAILY 04/15 1518 AC 04/20 PO 0903 Oxycodone HCl 15 MG .STK-MED ONE 04/20 0336 DC PO 04/20 0337 Oxycodone HCl 15 MG Q6P PRN 04/19 1015 04/20 PO 0338 Polyethylene Glycol 17 GM DAILY 04/14 0900 AC 04/20 PO 0903 Senna/Docusate Sodium 2 TAB DAILY NEEDED PRN 04/14 0115 AC 04/14 PO 0825 Warfarin Sodium 5 MG COUMADIN 1700 04/19 1700 DC 04/19 PO 04/19 2359 1701 Last 24 Hrs of Lab/[place] Results Last 24 Hrs of Labs/Mics: Laboratory Tests 04/20/18 0615: Anion Gap 15, Estimated GFR 41 L, BUN/Creatinine Ratio 39.4 H, PT 37.5 H, INR 3.40 H, CBC w Diff NO MAN DIFF REQ, RBC 4.80, MCV 84.3, MCH 27.4, MCHC 32.5 L, RDW 16.0 H, MPV 8.8, Gran % 74.2, Lymphocytes % 14.4 L, Monocytes % 7.1, Eosinophils % 4.0, Basophils % 0.3, Absolute Granulocytes 7.8 H, Absolute Lymphocytes 1.5, Absolute Monocytes 0.7 H, Absolute Eosinophils 0.4, Absolute Basophils 0 04/19/185: Urine Color YEL, Urine Clarity CLEAR, Urine pH 6.5, Ur Specific [place] 1.010, Urine Protein NEG, Urine Ketones NEG, Urine Nitrite NEG, Urine Bilirubin NEG, Urine Urobilinogen 0.2, Ur Leukocyte Esterase NEG, Ur Microscopic EXAM NOT REQUIRED, Urine Hemoglobin NEG, Urine Glucose NEG 04/19/18 1355: Anion Gap 12, Estimated GFR 41 L, BUN/Creatinine Ratio 33.5 H Assessment/Plan Assessment: Patient is a 62-year-old male with a PMH significant for A. fib, left lower extremity DVT, CAD status post PCI, HLD, chronic venous insufficiency, PVD on 2 L O2 baseline, type 2 diabetes mellitus who presented to [facility] complaining of worsening shortness of breath, he was referred into the ED by Dr. Zhu from the wound care center. Patient is admitted to the telemetry floor for management of the followin. RL Acute increase in BUN and Cr from baseline of 0.9 to 1.7. Patient was previously on IV lasix. Now switched to bumex due to inadequate diuresis. Patient also got ketoralac IV 30 mg x 2 within the last 24 hours. - will avoid nephrotoxic medications - strict I/O - nephrology consulted today - Spoke to Dr. Villar today - RL likely secondary to ketoralac in combination with diuretic. Will hold bumex and monitor renal function. 2. Lower extremity pain patient's pain had been well controlled with gabapentin and percocet until the weekend, when he began having worse LE pain. He was given dilauded at one point this weekend and ketoralac. Patient was started on oxycodone. Continues to have lower extremity pain. - continue gabapentin - increased frequency of oxycodone to q4h PRN 3. Dyspnea, multifactorial Patient's wheezing is improving with breathing treatments, however he continues to get severe dyspnea with exertion and even at rest simply by talking. -Bumex 2mg PO BID -Continue TRC/nebs, continue Mucinex twice daily -Continue to hold steroids for now -Patient is to follow up outpatient with Dr. Worthy for further evaluation and treatment of TOMASZ -Cardiology and pulmonology on board. Appreciate recommendations. 4. Supratherapeutic INR -Home dose is 10 mg -Monitor INR and dose coumadin as needed to maintain INR between 2-3 #Chronic medical problems including A. fib, CAD, DM, HTN - Continue home medical regimen - Hold oral hypoglycemics - Accu-Cheks 3 times daily before meals and at bedtime, - Continue NovoLog sliding increased dosage today due to uncontrolled blood sugars - Continue Levemir 30 units twice daily as his fingerstick glucose readings were elevated overnight Diet: Diabetic, sodium restriction DVT prophylaxis: coumadin, Alps CODE STATUS: Full code Problem List: 1. Dyspnea 2. Lower extremity edema 3. Acute kidney injury Pain Ratin Pain Location: lower extremity Pain Goal: Pain 7 or less Pain Plan: gabapentin oxycodone Tomorrow's Labs & Rationales: cbc bep- monitor bun and cr (rl), electrolytes (on bumex) inr - on coumadin Jodie Guajardo MD 04/20/18 1044: Attending MD Review Statement Attending Statement Attending MD Statement: examined this patient, discuss w/resident/PA/COMPUTER SYSTEMS AUDITOR, agreed w/resident/PA/COMPUTER SYSTEMS AUDITOR, reviewed EMR data (avail) Attending Assessment/Plan: 62M PMH CHF, COPD on 2L home O2, DM, CAD, a fib presenting with several weeks of SOB, recently seen in CHF clinic and given IV Lasix with no improvement, found to be fluid overloaded here, wheezing on exam, EKG no changes. Patient's breathing has improved from when I last saw him 3 days ago. He is still dyspneic with minimal exertion, but no longer with rest. His leg edema is improved, and Unna boots have been placed by wound care nurse. 1. Acute on chronic systolic CHF 2. COPD Exacerbation Plan - Continue on telemetry - Change Oxycodone to 15mg q4h PRN - I/O, daily weights - Continue PO Bumex - Follow cardiology, pulmonary, nephrology recommendations - Nebulizer treatments - Leg compression and elevation - Continue home medications - DVT PPx
[2018-04-20 07:56] LABS: ABSOLUTE BASOPHIL COUNT 0 /CUMM (0.0-0.2); ABSOLUTE EOSINOPHIL COUNT 0.4 /CUMM (0.0-0.7); ABSOLUTE GRANULOCYTE CT 7.8 /CUMM (1.4-6.5); ABSOLUTE LYMPH COUNT 1.5 /CUMM (1.2-3.4); ABSOLUTE MONOCYTE COUNT 0.7 /CUMM (0.10-0.60); BASOPHIL % 0.3 % (0.0-2.0); GRANULOCYTE % 74.2 % (42.2-75.2); HEMATOCRIT 40.4 % (42-52); MEAN CORPUSCULAR HGB 27.4 PG (27.0-31.0); MEAN CORPUSCULAR HGB CONC 32.5 G/DL (33.0-37.0); MEAN CORPUSCULAR VOLUME 84.3 FL (80.0-94.0); MEAN PLATELET VOLUME 8.8 FL (7.4-10.4); PLATELET COUNT 267 /CUMM (130-400); WHITE BLOOD CELL COUNT 10.6 /CUMM (4.8-10.8)
[2018-04-20 08:22] LABS: PT 37.5 SEC (9.4-12.5)
--- NOTE | 2018-04-20 10:18 | PN- Pulmonary ---
Subjective HPI/Critical Care Issues: pt seen and examined cough and phlegm persist but improved overall no fevers creatinine 1.7 urinating well Objective Current Medications: Current Medications Sig/Ann-Marie Start time Last Medication Dose Route Stop Time Status Admin Albuterol Sulfate 3 ML EVERY 4 HRS/AWAKE 04/14 08 AC 04/20 INH 0827 Amiodarone HCl 200 MG DAILY 04/14 09 AC 04/20 PO 0902 Aspirin Buffered 81 MG DAILY 04/14 09 AC 04/20 PO 0902 Atorvastatin Calcium 40 MG 1700 04/14 1700 AC 04/19 PO 1701 Budesonide/ 2 PUF BID 04/14 09 AC 04/20 Formoterol Fumarate INH 0902 Bumetanide 2 MG 0830,1630 04/20 0830 AC 04/20 PO 0801 Bumetanide 2 MG BID 04/19 1001 DC 04/19 PO 1719 Carvedilol 25 MG BID 04/14 09 AC 04/20 PO 0902 Cyanocobalamin 2,000 MCG DAILY 04/14 09 AC 04/20 PO 0902 Docusate Sodium 100 MG .STK-MED ONE 04/19 190 DC PO 04/19 1908 Docusate Sodium 100 MG BID PRN 04/13 2115 AC 04/19 PO 1909 Fenofibrate 145 MG DAILY 04/14 09 AC 04/20 PO 0902 Furosemide 80 MG 7:30 AM, & 4:30 PM 04/18 1630 NH 04/18 PO 1603 Gabapentin 900 MG Q8 04/19 1400 AC 04/20 PO 0645 Guaifenesin 600 MG Q12 04/14 1415 AC 04/20 PO 0902 Hydromorphone HCl 0.6 MG ONCE ONE 04/19 1015 DC 04/19 IV 04/19 1016 1035 Insulin Aspart 0 AT BEDTIME 04/16 2100 AC 04/17 SC 2151 Insulin Aspart 0 TIDAC 04/14 08 AC 04/20 SC 0759 Insulin Detemir 30 UNITS BID 04/15 0900 AC 04/20 SC 0901 Ipratropium [place] 2.5 ML EVERY 4 HRS/AWAKE 04/16 2000 AC 04/20 INH 0828 Ketorolac 30 MG .STK-MED ONE 04/19 1746 DC Tromethamine IV 04/19 1747 Magnesium Chloride 64 MG DAILY 04/15 1518 AC 04/20 PO 0903 Oxycodone HCl 15 MG Q6P PRN 04/19 1015 AC 04/20 PO 0338 Polyethylene Glycol 17 GM DAILY 04/14 0900 AC 04/20 PO 0903 Senna/Docusate Sodium 2 TAB DAILY NEEDED PRN 04/14 0115 AC 04/14 PO 0825 Warfarin Sodium 5 MG COUMADIN 1700 04/19 1700 DC 04/19 PO 04/19 2359 1701 Vital Signs & I&O Last 24 Hrs of Vitals and I&O: Vital Signs Date Time Temp Pulse Resp B/P B/P Pulse O2 O2 Flow FiO2 Mean Ox Delivery Rate 04/20 09 98.4 93 20 150/80 04/20 0902 150/80 04/20 0841 97 Nasal 2.0L Cannula 04/20 0625 98.4 93 20 150/80 92 Nasal 2.0L Cannula 04/20 0000 94 Nasal 2.0L Cannula 04/19 2045 109 132/78 04/19 1624 98 Nasal 2.0L Cannula 04/19 1600 Nasal 2.0L Cannula 04/19 1424 98.2 82 20 128/68 94 Nasal Cannula 04/19 1046 94 Nasal 3.0L Cannula Intake & Output 04/20 1600 04/20 0800 04/20 0000 Intake Total 600 1500 Output Total 725 4300 Balance -125 -2800 Intake, IV 0 Intake, Oral 600 1500 Number 0 Bowel Movements Output, Urine 725 4300 Patient 307 lb Weight Weight Standing Scale Measurement Method Exam Other Physical Findings: gen awake and alert head/neck - nasal cannula cvs s1, s2 lungs bilateral crackles improved abd obese ext wrapping intact, edematous/pitting Results Last 24 Hrs of Lab Results: Laboratory Tests 04/20/18 0615: Anion Gap 15, Estimated GFR 41 L, BUN/Creatinine Ratio 39.4 H, PT 37.5 H, INR 3.40 H, CBC w Diff NO MAN DIFF REQ, RBC 4.80, MCV 84.3, MCH 27.4, MCHC 32.5 L, RDW 16.0 H, MPV 8.8, Gran % 74.2, Lymphocytes % 14.4 L, Monocytes % 7.1, Eosinophils % 4.0, Basophils % 0.3, Absolute Granulocytes 7.8 H, Absolute Lymphocytes 1.5, Absolute Monocytes 0.7 H, Absolute Eosinophils 0.4, Absolute Basophils 0 04/19/182044: Urine Color YEL, Urine Clarity CLEAR, Urine pH 6.5, Ur Specific [place] 1.010, Urine Protein NEG, Urine Ketones NEG, Urine Nitrite NEG, Urine Bilirubin NEG, Urine Urobilinogen 0.2, Ur Leukocyte Esterase NEG, Ur Microscopic EXAM NOT REQUIRED, Urine Hemoglobin NEG, Urine Glucose NEG 04/19/18 1355: Anion Gap 12, Estimated GFR 41 L, BUN/Creatinine Ratio 33.5 H Impression/Plan Impression/Plan Impression/Plan: Impression 62 year old man CHF exacerbation COPD stable at this point untreated TOMASZ secondary to patient wishes knowing risks RL - diuresis (prerenal) vs NSAID (ketorolac) induced Plan -switched to bumex, lasix insufficient urine output -nephrology consultation to assist with diuresis options with an elevated creatinine -avoid nsaids/nephrotoxic agents -continue albuterol/ipratropium q4h -continue to monitor glucose -declines TOMASZ tx knowing risks Please do not use steroids without discussing with the pulmonary service DVT prophylaxis at all times
--- NOTE | 2018-04-20 12:04 | PN- Cardiology ---
Subjective Subjective: Lasix has been changed to bumetanide, and diuresis has improved. Edema is somewhat better. No chest pain. No palpitations. No diaphoresis. Objective Vital Signs and I&Os Vital Signs Date Time Temp Pulse Resp B/P B/P Pulse O2 O2 Flow FiO2 Mean Ox Delivery Rate 04/20 09 98.4 93 20 150/80 04/20 0902 150/80 04/20 0841 97 Nasal 2.0L Cannula 04/20 0800 94 Nasal 2.0L Cannula 04/20 0625 98.4 93 20 150/80 92 Nasal 2.0L Cannula 04/20 0000 94 Nasal 2.0L Cannula 04/19 2045 109 132/78 04/19 1624 98 Nasal 2.0L Cannula 04/19 1600 Nasal 2.0L Cannula 04/19 1424 98.2 82 20 128/68 94 Nasal Cannula Intake & Output 04/20 1600 04/20 0800 04/20 0000 04/19 1600 04/19 0800 04/19 0000 Intake Total 600 1500 620 500 700 Output Total 725 4300 880 400 900 Balance -125 -2800 -260 100 -200 Intake, IV 0 20 Intake, Oral 600 1500 600 500 700 Number 0 Bowel Movements Output, Urine 725 4300 880 400 900 Patient 307 lb 309 lb Weight Weight Standing Scale Measurement Method Physical Exam: Gen: NAD HEENT: normal Lungs: Scattered rhonchi bilateral, normal resp. effort Heart: RRR, S1, S2, no murmurs Abdomen: Soft, nontender, no masses Extremities: 2+ edema Neuro: Alert and oriented x 3, cranial nerves intact Current Medications: Current Medications Sig/Ann-Marie Start time Last Medication Dose Route Stop Time Status Admin Albuterol Sulfate 3 ML EVERY 4 HRS/AWAKE 04/14 08 AC 04/20 INH 0827 Amiodarone HCl 200 MG DAILY 04/14 09 AC 04/20 PO 0902 Aspirin Buffered 81 MG DAILY 04/14 09 AC 04/20 PO 0902 Atorvastatin Calcium 40 MG 1700 04/14 1700 AC 04/19 PO 1701 Budesonide/ 2 PUF BID 04/14 900 AC 04/20 Formoterol Fumarate INH 0902 Bumetanide 2 MG 0830,1630 04/20 0830 AC 04/20 PO 0801 Bumetanide 2 MG BID 04/19 1001 DC 04/19 PO 1719 Carvedilol 25 MG BID 04/14 09 AC 04/20 PO 0902 Cyanocobalamin 2,000 MCG DAILY 04/14 09 AC 04/20 PO 0902 Docusate Sodium 100 MG .STK-MED ONE 04/19 1907 DC PO 04/19 190 Docusate Sodium 100 MG BID PRN 04/13 2115 AC 04/19 PO 1909 Fenofibrate 145 MG DAILY 04/14 09 AC 04/20 PO 0902 Furosemide 80 MG 7:30 AM, & 4:30 PM 04/18 1630 DC 04/18 PO 1603 Gabapentin 900 MG Q8 04/19 1400 AC 04/20 PO 0645 Guaifenesin 600 MG Q12 04/14 1415 AC 04/20 PO 0902 Insulin Aspart 0 AT BEDTIME 04/16 2100 AC 04/17 [place] 2151 Insulin Aspart 0 TIDAC 04/14 08 04/20 SC 0759 Insulin Detemir 30 UNITS BID 04/15 09 AC 04/20 SC 0901 Ipratropium [place] 2.5 ML EVERY 4 HRS/AWAKE 04/16 2000 AC 04/20 INH 0828 Ketorolac 30 MG .STK-MED ONE 04/19 1746 DC Tromethamine IV 04/19 1747 Magnesium Chloride 64 MG DAILY 04/15 1518 04/20 PO 0903 Oxycodone HCl 15 MG .STK-MED ONE 04/20 0336 DC PO 04/20 0337 Oxycodone HCl 15 MG Q6P PRN 04/19 1015 AC 04/20 PO 0338 Polyethylene Glycol 17 GM DAILY 04/14 09 04/20 PO 0903 Senna/Docusate Sodium 2 TAB DAILY NEEDED PRN 04/14 0115 04/14 PO 0825 Warfarin Sodium 5 MG COUMADIN 1700 04/19 1700 PA 04/19 PO 04/19 2359 1701 Results Last 48 Hrs of Labs/Mics: Laboratory Tests 04/20/18 0615: Anion Gap 15, Estimated GFR 41 L, BUN/Creatinine Ratio 39.4 H, PT 37.5 H, INR 3.40 H, CBC w Diff NO MAN DIFF REQ, RBC 4.80, MCV 84.3, MCH 27.4, MCHC 32.5 L, RDW 16.0 H, MPV 8.8, Gran % 74.2, Lymphocytes % 14.4 L, Monocytes % 7.1, Eosinophils % 4.0, Basophils % 0.3, Absolute Granulocytes 7.8 H, Absolute Lymphocytes 1.5, Absolute Monocytes 0.7 H, Absolute Eosinophils 0.4, Absolute Basophils 0 04/19/182044: Urine Color YEL, Urine Clarity CLEAR, Urine pH 6.5, Ur Specific [place] 1.010, Urine Protein NEG, Urine Ketones NEG, Urine Nitrite NEG, Urine Bilirubin NEG, Urine Urobilinogen 0.2, Ur Leukocyte Esterase NEG, Ur Microscopic EXAM NOT REQUIRED, Urine Hemoglobin NEG, Urine Glucose NEG 04/19/18 1355: Anion Gap 12, Estimated GFR 41 L, BUN/Creatinine Ratio 33.5 H 04/19/18 0637: Anion Gap 8, Estimated GFR 47 L, BUN/Creatinine Ratio 37.3 H, PT 35.6 H, INR 3.23 H Assessment/Plan Assessment/Plan Assessment: 1. Lower extremity edema related to venous insufficiency, pulmonary hypertension, with stasis dermatitis and venous stasis changes 2. Acute on chronic COPD exacerbation with production of copious amounts of sputum 3. Acute on chronic HFpEF with probable cor pulmonale and right heart failure 4. Diabetes 5. Hypertension 6. History of coronary artery disease, status post stenting; mild cardio myopathy of coronary artery disease with ejection fraction of 50-55% on last echo 03/17 7. Peripheral arterial disease 8. Atrial fibrillation 9. Prior history of DVT 10. Acute on chronic renal insufficiency Plan: * Agree with plan for nephrology consultation for increasing BUN and creatinine. * Would hold further doses of bumetanide until the patient can be evaluated by nephrology. May need to consider restarting at a lower dose * Dose warfarin for INR 2-3 Continue telemetry? Yes
[2018-04-20 14:24] VITALS: BP 93/52
--- NOTE | 2018-04-20 16:49 | Cons- Nephrology ---
General Information and HPI Consulting Request Date of Consult: 04/20/18 Requested By: Jodie Guajardo MD Reason for Consult: RL Source of Information: patient, old records Exam Limitations: no limitations History of Present Illness: The patient is a 62-year-old man with a background of diabetes mellitus, hyperlipidemia, COPD, obstructive sleep apnea, HFpEF, atrial fibrillation, pulmonary hypertension, chronic lower extremity edema (often weeping), venous insufficiency with stasis dermatitis (status post sclerotherapy) and open lower extremity wounds requiring management at the [facility] wound service. He was admitted on this occasion on 04/13 with worsening shortness of breath and lower extremity edema. His creatinine ranged from 0.9-1.1 from day of admission through 04/18. On 04/19 (yesterday) the creatinine tiny rapidly to 1.5 and then was 1.7 today prompting this consultation request. He had received 2 doses of keterolac starting on 04/18 and was also diuresed with bumetanide 2 mg p.o. twice daily. There was no exposure to parenteral contrast. Past medical history: As above Medications: See below Allergies: No known drug allergies Family history positive for coronary artery disease and hypertension, negative for kidney disease in parents, siblings or other family members. He has 2 biological children who are alive and well and 3 grandchildren who are well. Social history: Previously worked in the [employer] field, medically retired, lives at home with , smoked 1-1/2 packs of cigarettes per day for over 40 years, stopped about 5 years ago, no history of alcohol or drug abuse. Allergies/Medications Allergies: Coded Allergies: NO KNOWN ALLERGIES (UNKNOWN 04/06/17) Home Med List: Amiodarone (Cordarone) 200 MG TABLET 1 TAB PO DAILY AFIB (Reported) Aspirin (Ecotrin*) 81 MG TABLET.DR 1 TAB PO DAILY HEART/BLOOD (Reported) Atorvastatin Calcium 40 MG TABLET 1 TAB PO DAILY CHOLESTEROL (Reported) Budesonide/Formoterol Fumarate (Symbicort 160-4.5 Mcg Inhaler) 10.2 GM HFA.AER.AD 2 PUF INH BID COPD Carvedilol 25 MG TABLET 1 TAB PO BID HEART (Reported) Cholecalciferol (Vitamin D3) (Vitamin D) 2,000 UNIT TABLET 1 TAB PO DAILY SUPPLEMENT (Reported) Cyanocobalamin (Vitamin B-12) (Vitamin B-12) 2,000 MCG TABLET 1 TAB PO DAILY SUPPLEMENT (Reported) Docusate Sodium (Colace) 100 MG CAPSULE 1 CAP PO BID PRN Constipation Fenofibrate 160 MG TABLET 1 TAB PO DAILY CHOLESTEROL (Reported) Furosemide 40 MG TABLET 1.5 TAB PO BID CHF .. Gabapentin 600 MG TABLET 1 TAB PO TID NEUROPATHY (Reported) Guaifenesin (Guaifenesin ER) 600 MG TAB.ER.12H 600 MG PO BID PRODUCTIVE COUGH Insulin Detemir (Levemir Flextouch) 100 UNIT/ML (3 ML) INSULN.PEN 30 UNITS SC BID DM (Reported) Insulin Lispro (Humalog) (Unknown Strength) VIAL (Unknown Dose) SC SEE SLIDING SCALE DIABETES (Reported) Levalbuterol HCl 1.25 MG/3 ML VIAL.NEB 1 INH PO Q4 BREATHING PROBLEMS ( Reported) Lisinopril (Prinivil) 5 MG TABLET 1 TAB PO DAILY HTN (Reported) Magnesium Chloride (Slow-Mag) 71.5 MG TABLET.DR 64 MG PO DAILY SUPPLEMENT Metformin HCl 850 MG TABLET 850 MG PO 0800,1700 diabetes Nystatin 100,000 UNIT/GRAM CREAM..G. 1 NIKITA TOP BID FUNGAL INFECTION Oxycodone HCl 10 MG TABLET 10 MG PO TID CHRONIC PAIN (Reported) Polyethylene Glycol 3350 (Miralax) 119 GM POWDER 17 GM PO AT BEDTIME PRN CONSTIPATION Potassium Chloride 10 MEQ CAPSULE.ER 1 CAP PO DAILY SUPPLEMENT (Reported) Warfarin Sodium (Coumadin) 10 MG TABLET 1 TAB PO SuMoTuThFrSa BLOOD THINNER ( Reported) Please dose Coumadin based upon the INR. Review of Systems Review of Systems: Gen.: Appetite good, recently gaining weight with increase in his edema Skin: No rash or jaundice HEENT: No visual or hearing disturbances, no discharge Cardiopulmonary: + shortness of breath and coughoften productive, no chest pain , orthopnea GI: No nausea, vomiting, abdominal pain, diarrhea : No dysuria, hematuria or other symptoms referable to the urinary tract Musculoskeletal: No arthralgias, arthritis, myalgias, weakness Neuro: No weakness, altered mental status, paresthesias Past History Travel History Traveled to [place] past 21 day No Medical History Neurological: NONE EENT: NONE Cardiovascular: AFIB, CAD, CHF, chronic venous insuff, hypertension, hyperlipidemia, myocardial infarction, STENT 2003 Respiratory: bronchitis, COPD, emphysema, obstructive sleep apnea, 02 3LDEPENDENT Gastrointestinal: NONE Hepatic: NONE Renal: NONE Musculoskeletal: degen joint disease Psychiatric: NONE Endocrine: diabetes Blood Disorders: DVT LLE Cancer(s): NONE 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 spouse Services at Home: Oxygen Primary Language: Lithuanian Smoking Status: Former Smoker ETOH Use: denies use Living Will? no Power of Probation And Patrol Agent/HCP? no Functional Ability ADLs Independent: dressing, eating, toileting, bathing. Ambulation: walker (also uses cane sometimes) IADLs Independent: shopping, housework, finances, food prep, telephone, transportation , medication admin. Exam & Diagnostic Data Vital Signs and I&O Vital Signs Date Time Temp Pulse Resp B/P B/P Pulse O2 O2 Flow FiO2 Mean Ox Delivery Rate 04/20 1635 93 Nasal 2.0L Cannula 04/20 1424 98.6 95 22 93/52 92 Nasal 2.5L Cannula 04/20 0902 98.4 93 20 150/80 04/20 0902 150/80 04/20 0841 97 Nasal 2.0L Cannula 04/20 0800 94 Nasal 2.0L Cannula 04/20 0625 98.4 93 20 150/80 92 Nasal 2.0L Cannula 04/20 0000 94 Nasal 2.0L Cannula 04/19 2045 109 132/78 Intake & Output 04/20 1600 04/20 0400 04/19 1600 04/19 0400 04/18 1600 04/18 0400 Intake Total 1080 1500 8716 635 9541 400 Output Total 4925 4300 5126 638 4051 2450 Balance -3845 -2800 -160 -200 -725 -2049 Intake, IV 0 20 20 Intake, Oral 1080 1500 5680 322 7814 400 Number 0 1 Bowel Movements Output, Urine 4925 4300 4190 492 0422 2450 Patient 307 lb 309 lb 310 lb Weight Weight Standing Scale Chair scale Measurement Method Physical Exam: General: Well-developed obese white male in NAD Skin: No rash or jaundice HEENT: Conjunctivae pink, sclerae anicteric, mucous membranes moist Neck: Without masses or thyromegaly, no supraclavicular or cervical adenopathy Chest: Scattered rhonchi with diminished breath sounds at bases Heart: Irregular rhythm without S3 or rub Abdomen: Obese, soft and nontender without palpable masses or organomegaly Extremities: Both legs are wrapped and therefore could not be examined Neuro: No focal findings, no asterixis or myoclonus Assessment/Plan Assessment/Recommendations Assessment: 62-year-old man with a multitude of significant medical problems including a history of COPD, congestive heart failure with normal LVEF, pulmonary hypertension, venous insufficiency with chronic weeping edema, hyperlipidemia and diabetes mellitus, with previously normal renal function who has now developed acute kidney injury likely secondary to NSAID exposure (albeit briefly ) while being diuresed for congestive heart failure and edema. Recommendations: 1. No further doses of ketorolac or any other NSAIDs 2. Withhold diuretics for 24 hours and then reassess 3. Should renal function failed to improve and certainly should his creatinine continue to rise we will need to rule out an obstructive issue by obtaining an ultrasound of his bladder and kidneys Thank you. We will follow up.
[2018-04-21 06:47] VITALS: BP 108/68
--- NOTE | 2018-04-21 07:27 | PN- Housestaff ---
Hector VILLASENOR,Lenard 04/21/18 0727: Subjective Follow-up For: RL Dyspnea 2/2 CHF/COPD Exacerbation A.mynor Tele-Events Since Last Visit: Flora 80-111, PVCs Subjective: Patient was seen and examined today. States his breathing has improved. Reports lower extremity pain bilaterally which radiates up to his back. Patient denies chest pain, palpitations, n/v, abdominal pain. Continues to have lower extremity swelling -both legs are wrapped in bandages. Review of Systems Constitutional: Reports: see HPI. Objective Last 24 Hrs of Vital Signs/I&O Vital Signs Date Time Temp Pulse Resp B/P B/P Pulse O2 O2 Flow FiO2 Mean Ox Delivery Rate 04/21 1405 98.6 95 22 96/58 94 Nasal 2.0L Cannula 04/21 0911 95 Nasal 2.0L Cannula 04/21 0819 112/80 04/21 0819 112/80 04/21 0800 95 Nasal 2.0L Cannula 04/21 0647 98.6 77 22 108/68 93 Nasal Cannula 04/21 0000 Nasal 2.0L Cannula 04/20 2152 148/68 04/20 1635 93 Nasal 2.0L Cannula Intake & Output 04/21 1600 04/21 0800 04/21 0000 Intake Total 700 200 600 Output Total 1850 1000 1400 Balance -1150 -800 -800 Intake, Oral 700 200 600 Number 0 Bowel Movements Output, Urine 1850 1000 1400 Patient 314 lb Weight Weight Chair scale Measurement Method Physical Exam General Appearance: Alert, Oriented X3, Cooperative, No Acute Distress Other Physical Findings: HEENT: Atraumatic, Mucous Membr. moist/pink Cardiovascular: Normal S1, Normal S2, irregular rate Lungs: bilateral prolonged expiratory wheezing and rales Abdomen: Normal Bowel Sounds, Soft, No Tenderness Extremities: lower extremities covered with bandages, pitting edema seen through bandage up to knee Current Medications: Current Medications Sig/Ann-Marie Start time Last Medication Dose Route Stop Time Status Admin Albuterol Sulfate 3 ML EVERY 4 HRS/AWAKE 04/14 08 AC 04/21 INH 1328 Amiodarone HCl 200 MG DAILY 04/14 09 AC 04/21 PO 0819 Aspirin Buffered 81 MG DAILY 04/14 900 AC 04/21 PO 0819 Atorvastatin Calcium 40 MG 1700 04/14 1700 AC 04/21 PO 1526 Budesonide/ 2 PUF BID 04/14 900 AC 04/21 Formoterol Fumarate INH 0819 Carvedilol 25 MG BID 04/14 09 AC 04/21 PO 0819 Cyanocobalamin 2,000 MCG DAILY 04/14 09 AC 04/21 PO 0819 Docusate Sodium 100 MG BID PRN 04/13 211 AC 04/19 PO 1909 Fenofibrate 145 MG DAILY 04/14 09 AC 04/21 PO 0819 Gabapentin 900 MG Q8 04/19 1400 AC 04/21 PO 1523 Guaifenesin 600 MG Q12 04/14 1415 AC 04/21 PO 0819 Insulin Aspart 0 AT BEDTIME 04/16 2100 AC 04/17 [place] 2151 Insulin Aspart 0 TIDAC 04/14 08 04/21 SC 0818 Insulin Detemir 30 UNITS BID 04/15 09 AC 04/21 SC 0818 Ipratropium [place] 2.5 ML EVERY 4 HRS/AWAKE 04/16 2000 AC 04/21 INH 1328 Magnesium Chloride 64 MG DAILY 04/15 1518 AC 04/21 PO 0819 Oxycodone HCl 15 MG Q4P PRN 04/20 1530 04/21 PO 1523 Oxycodone/ 1 TAB ONCE ONE 04/20 193 CAN Acetaminophen PO 04/20 193 Polyethylene Glycol 17 GM DAILY 04/14 09 04/21 PO 0819 Senna/Docusate Sodium 2 TAB DAILY NEEDED PRN 04/14 0115 04/14 PO 0825 Warfarin Sodium 5 MG COUMADIN 1700 ONE 04/21 1700 AC 04/21 PO 04/21 1701 1526 Last 24 Hrs of Lab/[place] Results Last 24 Hrs of Labs/Mics: Laboratory Tests 04/21/18 0622: Anion Gap 12, Estimated GFR 41 L, BUN/Creatinine Ratio 40.0 H, PT 28.2 H, INR 2.56 H, CBC w Diff NO MAN DIFF REQ, RBC 4.49 L, MCV 84.3, MCH 27.6, MCHC 32.8 L, RDW 16.6 H, MPV 8.9, Gran % 75.0, Lymphocytes % 13.9 L, Monocytes % 6.7, Eosinophils % 4.1, Basophils % 0.3, Absolute Granulocytes 6.0, Absolute Lymphocytes 1.1 L, Absolute Monocytes 0.5, Absolute Eosinophils 0.3, Absolute Basophils 0 Assessment/Plan Assessment: Patient is a 62-year-old male with a PMH significant for A. fib, left lower extremity DVT, CAD status post PCI, HLD, chronic venous insufficiency, PVD on 2 L O2 baseline, type 2 diabetes mellitus who presented to [facility] complaining of worsening shortness of breath, he was referred into the ED by Dr. Zhu from the wound care center. Patient is admitted to the telemetry floor for management of the followin. RL Acute increase in BUN and Cr from baseline of 0.9 to 1.7. Patient was previously on IV lasix and then switched to bumex. Patient also got ketoralac IV 30 mg x 2 which may have precipitated his RL in the setting of diuresis. Cr remains stable at 1.7 now off diuretic for the past 24 hours. Renal ultrasound was obtained which shows no hydronephrosis and normal appearing kidneys. - will avoid nephrotoxic medications - strict I/O - nephrology consulted - will continue to monitor creatinine off diuretics 2. Lower extremity pain patient's pain had been well controlled with gabapentin and percocet until the weekend, when he began having worse LE pain. He was given dilauded at one point this weekend and ketoralac. Patient was started on oxycodone. Continues to have lower extremity pain. - continue gabapentin - increased frequency of oxycodone to q4h PRN 3. Dyspnea, multifactorial Patient's wheezing is improving with breathing treatments, however he continues to get severe dyspnea with exertion and even at rest simply by talking. -Bumex 2mg PO BID -Continue TRC/nebs, continue Mucinex twice daily -Continue to hold steroids for now -Patient is to follow up outpatient with Dr. Worthy for further evaluation and treatment of TOMASZ -Cardiology and pulmonology on board. Appreciate recommendations. 4. Supratherapeutic INR -Home dose is 10 mg -Monitor INR and dose coumadin as needed to maintain INR between 2-3 5. Incidental hepatic mass - will likely need triple phase CT however currently in RL. Will discuss this with nephrology prior to proceeding. #Chronic medical problems including A. fib, CAD, DM, HTN - Continue home medical regimen - Hold oral hypoglycemics - Accu-Cheks 3 times daily before meals and at bedtime, - Continue NovoLog sliding increased dosage today due to uncontrolled blood sugars - Continue Levemir 30 units twice daily as his fingerstick glucose readings were elevated overnight Diet: Diabetic, sodium restriction DVT prophylaxis: coumadin, Alps CODE STATUS: Full code Problem List: 1. Dyspnea 2. Acute kidney injury 3. Afib Pain Ratin Pain Location: lower extremity Pain Goal: Pain 7 or less Pain Plan: gabapentin oxycodone Tomorrow's Labs & Rationales: cbc bep- monitor bun and cr (rl) inr - on coumadin Jodie Guajardo MD 04/21/18 1122: Attending MD Review Statement Attending Statement Attending MD Statement: examined this patient, discuss w/resident/PA/MOLD YARD SUPERVISOR, agreed w/resident/PA/MOLD YARD SUPERVISOR, reviewed EMR data (avail) Attending Assessment/Plan: 62M PMH CHF, COPD on 2L home O2, DM, CAD, a fib presenting with several weeks of SOB, recently seen in CHF clinic and given IV Lasix with no improvement, found to be fluid overloaded here, wheezing on exam, EKG no changes. Slight improvement from yesterday. Still dyspneic with exertion. Renal function holding steady. 1. Acute on chronic systolic CHF 2. COPD Exacerbation Plan - Continue on telemetry - Continue Oxycodone PRN - I/O, daily weights - Hold diuretics - Follow cardiology, pulmonary, nephrology recommendations - Nebulizer treatments - Leg compression and elevation - Continue home medications - DVT PPx
[2018-04-21 08:12] LABS: ABSOLUTE BASOPHIL COUNT 0 /CUMM (0.0-0.2); ABSOLUTE EOSINOPHIL COUNT 0.3 /CUMM (0.0-0.7); ABSOLUTE LYMPH COUNT 1.1 /CUMM (1.2-3.4); ABSOLUTE MONOCYTE COUNT 0.5 /CUMM (0.10-0.60); BASOPHIL % 0.3 % (0.0-2.0); EOSINOPHIL % 4.1 % (0-5); HEMATOCRIT 37.8 % (42-52); MEAN CORPUSCULAR HGB 27.6 PG (27.0-31.0); MEAN CORPUSCULAR HGB CONC 32.8 G/DL (33.0-37.0); MEAN CORPUSCULAR VOLUME 84.3 FL (80.0-94.0); MEAN PLATELET VOLUME 8.9 FL (7.4-10.4); PLATELET COUNT 227 /CUMM (130-400); RBC DISTRIBUTION WIDTH 16.6 % (11.5-14.5); RED BLOOD CELL CT 4.49 /CUMM (4.70-6.10)
[2018-04-21 08:20] LABS: PT 28.2 SEC (9.4-12.5)
--- NOTE | 2018-04-21 12:39 | PN- Pulmonary ---
Subjective HPI/Critical Care Issues: Patient seen and examined this morning. His dyspnea remains however he is continuing to diurese despite holding of diuretics. His creatinine is stable at 1.7 is anticipating a renal ultrasound this morning. Objective Current Medications: Current Medications Sig/Ann-Marie Start time Last Medication Dose Route Stop Time Status Admin Albuterol Sulfate 3 ML EVERY 4 HRS/AWAKE 04/14 08 AC 04/21 INH 0844 Amiodarone HCl 200 MG DAILY 04/14 09 AC 04/21 PO 0819 Aspirin Buffered 81 MG DAILY 04/14 09 AC 04/21 PO 0819 Atorvastatin Calcium 40 MG 1700 04/14 1700 AC 04/20 PO 1738 Budesonide/ 2 PUF BID 04/14 900 AC 04/21 Formoterol Fumarate INH 0819 Bumetanide 2 MG 0830,1630 04/20 0830 DC 04/20 PO 0801 Carvedilol 25 MG BID 04/14 09 04/21 PO 0819 Cyanocobalamin 2,000 MCG DAILY 04/14 09 AC 04/21 PO 0819 Docusate Sodium 100 MG BID PRN 04/13 2115 AC 04/19 PO 1909 Fenofibrate 145 MG DAILY 04/14 09 AC 04/21 PO 0819 Gabapentin 900 MG Q8 04/19 1400 AC 04/21 PO 0504 Guaifenesin 600 MG Q12 04/14 1415 AC 04/21 PO 0819 Insulin Aspart 0 AT BEDTIME 04/16 2100 AC 04/17 SC 2151 Insulin Aspart 0 TIDAC 04/14 08 04/21 SC 0818 Insulin Detemir 30 UNITS BID 04/15 0900 AC 04/21 SC 0818 Ipratropium [place] 2.5 ML EVERY 4 HRS/AWAKE 04/16 2000 AC 04/21 INH 0844 Magnesium Chloride 64 MG DAILY 04/15 1518 AC 04/21 PO 0819 Oxycodone HCl 15 MG Q4P PRN 04/20 1530 AC 04/21 PO 0822 Oxycodone HCl 15 MG Q4P PRN 04/20 1515 CAN PO Oxycodone HCl 15 MG Q6P PRN 04/19 1015 DC 04/20 PO 0910 Oxycodone/ 1 TAB ONCE ONE 04/20 193 CAN Acetaminophen PO 04/20 193 Polyethylene Glycol 17 GM DAILY 04/14 09 AC 04/21 PO 0819 Senna/Docusate Sodium 2 TAB DAILY NEEDED PRN 04/14 0115 AC 04/14 PO 0825 Vital Signs & I&O Last 24 Hrs of Vitals and I&O: Vital Signs Date Time Temp Pulse Resp B/P B/P Pulse O2 O2 Flow FiO2 Mean Ox Delivery Rate 04/21 0911 95 Nasal 2.0L Cannula 04/21 0819 112/80 04/21 0819 112/80 04/21 0800 95 Nasal 2.0L Cannula 04/21 0647 98.6 77 22 108/68 93 Nasal Cannula 04/21 0000 Nasal 2.0L Cannula 04/20 2152 148/68 04/20 1635 93 Nasal 2.0L Cannula 04/20 1600 Nasal 2.0L Cannula 04/20 1424 98.6 95 22 93/52 92 Nasal 2.5L Cannula Intake & Output 04/21 1600 04/21 0800 04/21 0000 Intake Total 200 600 Output Total 1000 1400 Balance -800 -800 Intake, Oral 200 600 Number 0 Bowel Movements Output, Urine 1000 1400 Patient 314 lb Weight Weight Chair scale Measurement Method Exam Other Physical Findings: gen awake and alert head/neck - nasal cannula cvs s1, s2 lungs bilateral crackles abd obese ext wrapping intact, edematous/pitting Results Last 24 Hrs of Lab Results: Laboratory Tests 04/21/18 06: Anion Gap 12, Estimated GFR 41 L, BUN/Creatinine Ratio 40.0 H, PT 28.2 H, INR 2.56 H, CBC w Diff NO MAN DIFF REQ, RBC 4.49 L, MCV 84.3, MCH 27.6, MCHC 32.8 L, RDW 16.6 H, MPV 8.9, Gran % 75.0, Lymphocytes % 13.9 L, Monocytes % 6.7, Eosinophils % 4.1, Basophils % 0.3, Absolute Granulocytes 6.0, Absolute Lymphocytes 1.1 L, Absolute Monocytes 0.5, Absolute Eosinophils 0.3, Absolute Basophils 0 Impression/Plan Impression/Plan Impression/Plan: Impression 62 year old man CHF exacerbation COPD stable at this point untreated TOMASZ secondary to patient wishes knowing risks RL - diuresis (prerenal) vs NSAID (ketorolac) induced Plan -nephrology consultation noted -f/u renal usg -avoid nephrotoxic agents -continue albuterol/ipratropium q4h -continue to monitor glucose -declines TOMASZ tx knowing risks - will revisit on an outpatient basis Please do not use steroids without discussing with the pulmonary service DVT prophylaxis at all times
[2018-04-21 14:05] VITALS: BP 96/58
--- NOTE | 2018-04-21 14:30 | ULTRASOUND REPORT ---
EXAMINATION: US RETROPERITONEAL COMPLETE (RENAL) CLINICAL INFORMATION: Worsening kidney function. Rule out obstruction. COMPARISON: CT chest 03/31/2017. Report from CTA chest 05/22/2016; images not available for direct comparison. TECHNIQUE: Real-time imaging of the kidneys and bladder. FINDINGS: RIGHT KIDNEY: 13.7 x 6.9 x 7.2 cm (SAG x AP x TRV). The kidney is normal in size, contour, and echogenicity. Renal cortical thickness is normal. No calculi or focal parenchymal lesions. No hydronephrosis. LEFT KIDNEY: 13.9 x 7.4 x 6.2 cm (SAG x AP x TRV). The kidney is normal in size, contour, and echogenicity. Renal cortical thickness is normal. No calculi or focal parenchymal lesions. No hydronephrosis. BLADDER: Well-distended and normal. Bilateral ureteral jets are demonstrated. Prevoid bladder volume is 224 mL. The patient had voided immediately prior to the exam and was not able to void subsequently. Incidentally obtained images through the right lobe of the liver demonstrate a 0 4.5 x 3.5 cm heterogeneous hyperechoic lesion with a peripheral hypoechoic halo. IMPRESSION: No hydronephrosis. Normal-appearing kidneys bilaterally. The incidentally obtained images of the liver show a 4.5 cm heterogeneous hyperechoic lesion in the right lobe of the liver with a peripheral hypoechoic halo. No definite correlate seen on the prior noncontrast chest CT which partially includes the liver. There are areas of heterogeneous low density in the liver on the prior CT scan, possibly fatty infiltration. Recommend contrast-enhanced CT or, preferably, dynamic contrast-enhanced liver MRI for definitive evaluation. The findings and recommendations were discussed with Jessica Choudhary MD by telephone at 04/21/2018 2:24 PM.
--- NOTE | 2018-04-21 15:50 | PN- Cardiology ---
Subjective Subjective: The patient complains of lower extremity pain. Diuretic therapy is on hold because of acute on chronic renal insufficiency. No chest pain. No palpitations. Shortness of breath is stable. Objective Vital Signs and I&Os Vital Signs Date Time Temp Pulse Resp B/P B/P Pulse O2 O2 Flow FiO2 Mean Ox Delivery Rate 04/21 1405 98.6 95 22 96/58 94 Nasal 2.0L Cannula 04/21 0911 95 Nasal 2.0L Cannula 04/21 0819 112/80 04/21 0819 112/80 04/21 0800 95 Nasal 2.0L Cannula 04/21 0647 98.6 77 22 108/68 93 Nasal Cannula 04/21 0000 Nasal 2.0L Cannula 04/20 2152 148/68 04/20 1635 93 Nasal 2.0L Cannula 04/20 1600 Nasal 2.0L Cannula Intake & Output 04/21 1600 04/21 0800 04/21 0000 04/20 1600 04/20 0800 04/20 0000 Intake Total 700 200 600 336 367 9234 Output Total 1850 1000 1400 4200 725 4300 Balance -1150 -800 -800 -3720 -125 -2800 Intake, IV 0 Intake, Oral 700 200 600 214 897 1500 Number 0 0 Bowel Movements Output, Urine 1850 1000 1400 4200 725 4300 Patient 314 lb 307 lb Weight Weight Chair scale Standing Scale Measurement Method Physical Exam: Gen: NAD HEENT: normal Lungs: Scattered rhonchi bilateral, normal resp. effort Heart: RRR, S1, S2, no murmurs Abdomen: Soft, nontender, no masses Extremities: 2+ edema Neuro: Alert and oriented x 3, cranial nerves intact Current Medications: Current Medications Sig/Ann-Marie Start time Last Medication Dose Route Stop Time Status Admin Albuterol Sulfate 3 ML EVERY 4 HRS/AWAKE 04/14 800 AC 04/21 INH 1328 Amiodarone HCl 200 MG DAILY 04/14 900 AC 04/21 PO 0819 Aspirin Buffered 81 MG DAILY 04/14 900 AC 04/21 PO 0819 Atorvastatin Calcium 40 MG 1700 04/14 1700 AC 04/21 PO 1526 Budesonide/ 2 PUF BID 04/14 900 AC 04/21 Formoterol Fumarate INH 0819 Carvedilol 25 MG BID 04/14 900 AC 04/21 PO 0819 Cyanocobalamin 2,000 MCG DAILY 04/14 900 AC 04/21 PO 0819 Docusate Sodium 100 MG BID PRN 04/13 2115 AC 04/19 PO 1909 Fenofibrate 145 MG DAILY 04/14 09 AC 04/21 PO 0819 Gabapentin 900 MG Q8 04/19 1400 AC 04/21 PO 1523 Guaifenesin 600 MG Q12 04/14 1415 AC 04/21 PO 0819 Insulin Aspart 0 AT BEDTIME 04/16 2100 AC 04/17 [place] 2151 Insulin Aspart 0 TIDAC 04/14 08 AC 04/21 SC 0818 Insulin Detemir 30 UNITS BID 04/15 09 AC 04/21 SC 0818 Ipratropium [place] 2.5 ML EVERY 4 HRS/AWAKE 04/16 2000 AC 04/21 INH 1328 Magnesium Chloride 64 MG DAILY 04/15 1518 AC 04/21 PO 0819 Oxycodone HCl 15 MG Q4P PRN 04/20 1530 AC 04/21 PO 1523 Oxycodone/ 1 TAB ONCE ONE 04/20 1930 CAN Acetaminophen PO 04/20 193 Polyethylene Glycol 17 GM DAILY 04/14 09 04/21 PO 0819 Senna/Docusate Sodium 2 TAB DAILY NEEDED PRN 04/14 0115 AC 04/14 PO 0825 Warfarin Sodium 5 MG COUMADIN 1700 ONE 04/21 1700 AC 04/21 PO 04/21 1701 1526 Results Last 48 Hrs of Labs/Mics: Laboratory Tests 04/21/18 06: Anion Gap 12, Estimated GFR 41 L, BUN/Creatinine Ratio 40.0 H, PT 28.2 H, INR 2.56 H, CBC w Diff NO MAN DIFF REQ, RBC 4.49 L, MCV 84.3, MCH 27.6, MCHC 32.8 L, RDW 16.6 H, MPV 8.9, Gran % 75.0, Lymphocytes % 13.9 L, Monocytes % 6.7, Eosinophils % 4.1, Basophils % 0.3, Absolute Granulocytes 6.0, Absolute Lymphocytes 1.1 L, Absolute Monocytes 0.5, Absolute Eosinophils 0.3, Absolute Basophils 0 04/20/18 0615: Anion Gap 15, Estimated GFR 41 L, BUN/Creatinine Ratio 39.4 H, PT 37.5 H, INR 3.40 H, CBC w Diff NO MAN DIFF REQ, RBC 4.80, MCV 84.3, MCH 27.4, MCHC 32.5 L, RDW 16.0 H, MPV 8.8, Gran % 74.2, Lymphocytes % 14.4 L, Monocytes % 7.1, Eosinophils % 4.0, Basophils % 0.3, Absolute Granulocytes 7.8 H, Absolute Lymphocytes 1.5, Absolute Monocytes 0.7 H, Absolute Eosinophils 0.4, Absolute Basophils 0 04/19/182044: Urine Color YEL, Urine Clarity CLEAR, Urine pH 6.5, Ur Specific [place] 1.010, Urine Protein NEG, Urine Ketones NEG, Urine Nitrite NEG, Urine Bilirubin NEG, Urine Urobilinogen 0.2, Ur Leukocyte Esterase NEG, Ur Microscopic EXAM NOT REQUIRED, Urine Hemoglobin NEG, Urine Glucose NEG Recent Imaging Studies: Renal ultrasound 04/21/18: No hydronephrosis. Normal-appearing kidneys bilaterally. The incidentally obtained images of the liver show a 4.5 cm heterogeneous hyperechoic lesion in the right lobe of the liver with a peripheral hypoechoic halo. No definite correlate seen on the prior noncontrast chest CT which partially includes the liver. There are areas of heterogeneous low density in the liver on the prior CT scan, possibly fatty infiltration. Recommend contrast-enhanced CT or, preferably, dynamic contrast-enhanced liver MRI for definitive evaluation. Assessment/Plan Assessment/Plan Assessment: 1. Lower extremity edema related to venous insufficiency, pulmonary hypertension, with stasis dermatitis and venous stasis changes 2. Acute on chronic COPD exacerbation with production of copious amounts of sputum 3. Acute on chronic HFpEF with probable cor pulmonale and right heart failure 4. Diabetes 5. Hypertension 6. History of coronary artery disease, status post stenting; mild cardio myopathy of coronary artery disease with ejection fraction of 50-55% on last echo 03/17 7. Peripheral arterial disease 8. Atrial fibrillation 9. Prior history of DVT 10. Acute on chronic renal insufficiency Plan: * Diuretic therapy on hold for acute on chronic renal insufficiency * Will plan to restart Bumex once BUN and creatinine begin to improve. * Dose warfarin for INR 2-3 Continue telemetry? Yes
[2018-04-21 22:32] VITALS: BP 100/64
[2018-04-22 06:59] VITALS: BP 112/70
--- NOTE | 2018-04-22 07:08 | PN- Housestaff ---
Hector VILLASENOR,Lenard 04/22/18 0708: Subjective Follow-up For: RL Dyspnea 2/2 CHF/COPD Exacerbation Flora Hepatic Mass Tele-Events Since Last Visit: Flora 77-104, PVCs Subjective: Patient was seen and examined today. Patient continues to report shortness of breath with walking and lower extremity edema. Also states that he continues to have severe lower extremity pain which subsides temporarily with the pain medications. Patient denies chest pain, palpitations, abdominal pain, n/v. Patient today is concerned about the hepatic mass and further workup. Review of Systems Constitutional: Reports: see HPI. Objective Last 24 Hrs of Vital Signs/I&O Vital Signs Date Time Temp Pulse Resp B/P B/P Pulse O2 O2 Flow FiO2 Mean Ox Delivery Rate 04/22 1008 70 112/70 04/22 1007 70 112/70 04/22 0900 95 Nasal 2.0L Cannula 04/22 0659 98.2 70 22 112/70 95 Nasal Cannula 04/22 0000 95 Nasal 2.0L Cannula 04/21 2232 97.0 88 22 100/64 92 Nasal Cannula 04/21 2157 92 104/64 04/21 1625 93 Nasal 2.0L Cannula 04/21 1405 98.6 95 22 96/58 94 Nasal 2.0L Cannula Intake & Output 04/22 1600 04/22 0800 04/22 0000 Intake Total 400 Output Total 1000 1000 Balance -600 -1000 Intake, Oral 400 Output, Urine 1000 1000 Physical Exam General Appearance: Alert, Oriented X3, Cooperative, No Acute Distress Skin Temp/Moisture Exam: Warm/Dry HEENT: Atraumatic, Mucous Membr. moist/pink Cardiovascular: Normal S1, Normal S2, irregular rate Lungs: bilateral prolonged expiratory wheezing, fine crackles scattered throughout lung wheeler Abdomen: Normal Bowel Sounds, Soft, No Tenderness Neurological: Normal Speech, Strength at 5/5 X4 Ext, Normal Tone, Sensation Intact, Cranial Nerves 3-12 NL Extremities: bilateral lower extremity edema with wheeping wounds improved from previous day Current Medications: Current Medications Sig/Ann-Marie Start time Last Medication Dose Route Stop Time Status Admin Albuterol Sulfate 3 ML EVERY 4 HRS/AWAKE 04/14 08 AC 04/22 INH 1251 Amiodarone HCl 200 MG DAILY 04/14 900 AC 04/22 PO 1007 Aspirin Buffered 81 MG DAILY 04/14 900 AC 04/22 PO 1008 Atorvastatin Calcium 40 MG 1700 04/14 1700 AC 04/21 PO 1526 Budesonide/ 2 PUF BID 04/14 09 AC 04/22 Formoterol Fumarate INH 1006 Carvedilol 25 MG BID 04/14 09 AC 04/22 PO 1008 Cyanocobalamin 2,000 MCG DAILY 04/14 09 AC 04/22 PO 1008 Docusate Sodium 100 MG BID PRN 04/13 211 AC 04/19 PO 1909 Fenofibrate 145 MG DAILY 04/14 09 AC 04/22 PO 1008 Gabapentin 900 MG Q8 04/19 1400 AC 04/22 PO 0631 Guaifenesin 600 MG Q12 04/14 1415 AC 04/22 PO 1008 Hydromorphone HCl 1 MG ONCE ONE 04/22 1100 DC 04/22 IV 04/22 1101 1113 Insulin Aspart 0 AT BEDTIME 04/16 2100 AC 04/17 [place] 2151 Insulin Aspart 0 TIDAC 04/14 08 AC 04/22 SC 1244 Insulin Detemir 30 UNITS BID 04/15 09 AC 04/22 SC 1112 Ipratropium [place] 2.5 ML EVERY 4 HRS/AWAKE 04/16 2000 AC 04/22 INH 1251 Magnesium Chloride 64 MG DAILY 04/15 1518 AC 04/22 PO 1008 Morphine Sulfate 15 MG BID 04/22 1051 AC 04/22 PO 1247 Oxycodone HCl 15 MG Q4P PRN 04/20 1530 DC 04/22 PO 0631 Polyethylene Glycol 17 GM DAILY 04/14 09 AC 04/22 PO 1006 Senna/Docusate Sodium 2 TAB DAILY NEEDED PRN 04/14 0115 AC 04/14 PO 0825 Warfarin Sodium 5 MG COUMADIN 1700 ONE 04/21 1700 DC 04/21 PO 04/21 1701 1526 Last 24 Hrs of Lab/[place] Results Last 24 Hrs of Labs/Mics: Laboratory Tests 04/22/18 0615: Anion Gap 11, Estimated GFR 44 L, BUN/Creatinine Ratio 39.4 H, PT 21.0 H, INR 1.91 H, CBC w Diff NO MAN DIFF REQ, RBC 4.66 L, MCV 84.1, MCH 27.7, MCHC 32.9 L, RDW 16.3 H, MPV 9.1, Gran % 73.7, Lymphocytes % 14.3 L, Monocytes % 8.0, Eosinophils % 3.7, Basophils % 0.3, Absolute Granulocytes 6.4, Absolute Lymphocytes 1.2, Absolute Monocytes 0.7 H, Absolute Eosinophils 0.3, Absolute Basophils 0, Hepatitis A IgM Ab NONREACTIVE, Hep Bs Antigen NONREACTIVE, Hep B Core IgM Ab Conf NONREACTIVE, Hepatitis C Antibody NONREACTIVE 04/22/18 0600: Alpha Fetoprotein Pending Assessment/Plan Assessment: Patient is a 62-year-old male with a PMH significant for A. fib, left lower extremity DVT, CAD status post PCI, HLD, chronic venous insufficiency, PVD on 2 L O2 baseline, type 2 diabetes mellitus who presented to [facility] complaining of worsening shortness of breath, he was referred into the ED by Dr. Zhu from the [facility]. Patient is admitted to the telemetry floor for management of the followin. RL Acute increase in BUN and Cr from baseline of 0.9 to 1.7. Patient was previously on IV lasix and then switched to bumex. Patient also got ketoralac IV 30 mg x 2 which may have precipitated his RL in the setting of diuresis. Cr has decreased slighly to 1.6 now off diuretic for the past 48 hours. Renal ultrasound was obtained which shows no hydronephrosis and normal appearing kidneys. - will avoid nephrotoxic medications - strict I/O - nephrology consulted - per cardiology and nephrology recommendations will restart bumex at 1mg daily - will continue to monitor creatinine off diuretics 2. Lower extremity pain patient's pain had been well controlled with gabapentin and percocet until the weekend, when he began having worse LE pain. He was given dilauded at one point this weekend and ketoralac. Patient was started on oxycodone. Continues to have lower extremity pain. - continue gabapentin - oxycodone PRN - oxycontin 15mg BID 3. Dyspnea, multifactorial Patient's wheezing is improving with breathing treatments. Continues to have dyspnea on exertion however appears to be improving slightly. -Bumex 1mg PO daily -Continue TRC/nebs, continue Mucinex twice daily -Continue to hold steroids for now -Patient is to follow up outpatient with Dr. Worthy for further evaluation and treatment of TOMASZ -Cardiology and pulmonology on board. Appreciate recommendations. 4. Subtherapeutic INR -Home dose is 10 mg -Monitor INR and dose coumadin as needed to maintain INR between 2-3 5. Incidental hepatic mass - will need further imaging. Multiple discussions with the patient on possible avenues. Due to patient's RL will hold off at this point as he will likley require contrast. #Chronic medical problems including A. fib, CAD, DM, HTN - Continue home medical regimen - Hold oral hypoglycemics - Accu-Cheks 3 times daily before meals and at bedtime, - Continue NovoLog sliding increased dosage today due to uncontrolled blood sugars - Continue Levemir 30 units twice daily as his fingerstick glucose readings were elevated overnight Diet: Diabetic, sodium restriction DVT prophylaxis: coumadin, Alps CODE STATUS: Full code Dispo: Will hold a family meeting with patient's tomorrow afternoon to discuss patient's current medical status and optimization in preparation for discharge in the next 1-2 days. Problem List: 1. Acute kidney injury 2. Dyspnea 3. Lower extremity edema Pain Ratin Pain Location: lower extremities Pain Goal: Pain 7 or less Pain Plan: oxycontin oxycodone PRN Tomorrow's Labs & Rationales: bep - rl, diuretic inr - coumadin Jodie Guajardo MD 04/22/18 1045: Attending MD Review Statement Attending Statement Attending MD Statement: examined this patient, discuss w/resident/PA/[employer]S BASKETBALL COACH, agreed w/resident/PA/[employer] BASKET[employer] COACH, reviewed EMR data (avail) Attending Assessment/Plan: 62M PMH CHF, COPD on 2L home O2, DM, CAD, a fib presenting with several weeks of SOB, recently seen in CHF clinic and given IV Lasix with no improvement, found to be fluid overloaded here, wheezing on exam, EKG no changes. Slight improvement from yesterday. Still dyspneic with exertion. Renal function holding steady. 1. Acute on chronic systolic CHF 2. COPD Exacerbation Plan - Continue on telemetry - Continue Oxycodone PRN - Start MS-contin 15mg BID and titrate up - I/O, daily weights - Follow cardiology, pulmonary, nephrology recommendations - Nebulizer treatments - Leg compression and elevation - Continue home medications - DVT PPx
[2018-04-22 07:51] LABS: ABSOLUTE BASOPHIL COUNT 0 /CUMM (0.0-0.2); ABSOLUTE EOSINOPHIL COUNT 0.3 /CUMM (0.0-0.7); ABSOLUTE GRANULOCYTE CT 6.4 /CUMM (1.4-6.5); ABSOLUTE LYMPH COUNT 1.2 /CUMM (1.2-3.4); ABSOLUTE MONOCYTE COUNT 0.7 /CUMM (0.10-0.60); BASOPHIL % 0.3 % (0.0-2.0); EOSINOPHIL % 3.7 % (0-5); GRANULOCYTE % 73.7 % (42.2-75.2); HEMATOCRIT 39.2 % (42-52); MEAN CORPUSCULAR HGB 27.7 PG (27.0-31.0); MEAN CORPUSCULAR HGB CONC 32.9 G/DL (33.0-37.0); MEAN CORPUSCULAR VOLUME 84.1 FL (80.0-94.0); MEAN PLATELET VOLUME 9.1 FL (7.4-10.4); PLATELET COUNT 222 /CUMM (130-400); RBC DISTRIBUTION WIDTH 16.3 % (11.5-14.5); RED BLOOD CELL CT 4.66 /CUMM (4.70-6.10); WHITE BLOOD CELL COUNT 8.6 /CUMM (4.8-10.8)
--- NOTE | 2018-04-22 10:13 | PN- Pulmonary ---
Subjective HPI/Critical Care Issues: pt seen and examined creatinine 1.6 95% on 2LNC exertional dyspnea leg edema/dressings intact chronic LE pain cough with white/yellow phlegm no fevers, no chills no headaches no cp Objective Current Medications: Current Medications Sig/Ann-Marie Start time Last Medication Dose Route Stop Time Status Admin Albuterol Sulfate 3 ML EVERY 4 HRS/AWAKE 04/14 08 AC 04/22 INH 0853 Amiodarone HCl 200 MG DAILY 04/14 09 AC 04/21 PO 0819 Aspirin Buffered 81 MG DAILY 04/14 09 AC 04/21 PO 0819 Atorvastatin Calcium 40 MG 1700 04/14 1700 AC 04/21 PO 1526 Budesonide/ 2 PUF BID 04/14 900 AC 04/21 Formoterol Fumarate INH 2159 Carvedilol 25 MG BID 04/14 09 AC 04/21 PO 2157 Cyanocobalamin 2,000 MCG DAILY 04/14 09 AC 04/21 PO 0819 Docusate Sodium 100 MG BID PRN 04/13 2115 AC 04/19 PO 1909 Fenofibrate 145 MG DAILY 04/14 09 AC 04/21 PO 0819 Gabapentin 900 MG Q8 04/19 1400 AC 04/22 PO 0631 Guaifenesin 600 MG Q12 04/14 1415 AC 04/21 PO 2157 Insulin Aspart 0 AT BEDTIME 04/16 2100 AC 04/17 [place] 2151 Insulin Aspart 0 TIDAC 04/14 08 04/21 SC 1816 Insulin Detemir 30 UNITS BID 04/15 09 04/21 SC 2159 Ipratropium [place] 2.5 ML EVERY 4 HRS/AWAKE 04/16 2000 AC 04/22 INH 0853 Magnesium Chloride 64 MG DAILY 04/15 1518 AC 04/21 PO 0819 Oxycodone HCl 15 MG Q4P PRN 04/20 1530 AC 04/22 PO 0631 Polyethylene Glycol 17 GM DAILY 04/14 09 AC 04/21 PO 0819 Senna/Docusate Sodium 2 TAB DAILY NEEDED PRN 04/14 0115 AC 04/14 PO 0825 Warfarin Sodium 5 MG COUMADIN 1700 ONE 04/21 1700 DC 04/21 PO 04/21 1701 1526 Vital Signs & I&O Last 24 Hrs of Vitals and I&O: Vital Signs Date Time Temp Pulse Resp B/P B/P Pulse O2 O2 Flow FiO2 Mean Ox Delivery Rate 04/22 0659 98.2 70 22 112/70 95 Nasal Cannula 04/22 0000 95 Nasal 2.0L Cannula 04/21 2232 97.0 88 22 100/64 92 Nasal Cannula 04/21 2157 92 104/64 04/21 1625 93 Nasal 2.0L Cannula 04/21 1405 98.6 95 22 96/58 94 Nasal 2.0L Cannula Intake & Output 04/22 1600 04/22 0800 04/22 0000 Intake Total 400 Output Total 1000 1000 Balance -600 -1000 Intake, Oral 400 Output, Urine 1000 1000 Exam Other Physical Findings: gen awake and alert head/neck - nasal cannula cvs s1, s2 lungs bilateral crackles abd obese ext wrapping intact, edematous/pitting Results Last 24 Hrs of Lab Results: Laboratory Tests 04/22/18 0615: Anion Gap 11, Estimated GFR 44 L, BUN/Creatinine Ratio 39.4 H, PT 21.0 H, INR 1.91 H, CBC w Diff NO MAN DIFF REQ, RBC 4.66 L, MCV 84.1, MCH 27.7, MCHC 32.9 L, RDW 16.3 H, MPV 9.1, Gran % 73.7, Lymphocytes % 14.3 L, Monocytes % 8.0, Eosinophils % 3.7, Basophils % 0.3, Absolute Granulocytes 6.4, Absolute Lymphocytes 1.2, Absolute Monocytes 0.7 H, Absolute Eosinophils 0.3, Absolute Basophils 0, Hepatitis A IgM Ab Pending, Hep Bs Antigen Pending, Hep B Core IgM Ab Conf Pending, Hepatitis C Antibody Pending 04/22/18 0600: Alpha Fetoprotein Pending Impression/Plan Impression/Plan Impression/Plan: Impression 62 year old man * CHF exacerbation * COPD stable at this point * untreated TOMASZ secondary to patient wishes knowing risks * RL - diuresis (prerenal) vs NSAID (ketorolac) induced * incidental heterogeneous hyperechoic lesion in the right lobe of the liver, posisble fatty infiltration, further imaging was recommended Plan -cardiology/nephrology consultations reviewed -avoid nephrotoxic agents -continue albuterol/ipratropium q4h -continue to monitor glucose -declines TOMASZ tx knowing risks - will revisit on an outpatient basis Please do not use steroids without discussing with the pulmonary service DVT prophylaxis at all times
--- NOTE | 2018-04-22 10:14 | PN- Cardiology ---
Subjective Subjective: Shortness of breath is stable. No chest pain. No palpitations. Lower extremity edema is somewhat better. Objective Vital Signs and I&Os Vital Signs Date Time Temp Pulse Resp B/P B/P Pulse O2 O2 Flow FiO2 Mean Ox Delivery Rate 04/22 0659 98.2 70 22 112/70 95 Nasal Cannula 04/22 0000 95 Nasal 2.0L Cannula 04/21 2232 97.0 88 22 100/64 92 Nasal Cannula 04/21 2157 92 104/64 04/21 1625 93 Nasal 2.0L Cannula 04/21 1405 98.6 95 22 96/58 94 Nasal 2.0L Cannula Intake & Output 04/22 1600 04/22 0800 04/22 0000 04/21 1600 04/21 0800 04/21 0000 Intake Total 400 700 200 600 Output Total 1000 1000 1850 1000 1400 Balance -600 -1000 -1150 -800 -800 Intake, Oral 400 700 200 600 Number 0 Bowel Movements Output, Urine 1000 1000 1850 1000 1400 Patient 314 lb Weight Weight Chair scale Measurement Method Physical Exam: Gen: NAD HEENT: normal Lungs: Scattered rhonchi bilateral, normal resp. effort Heart: RRR, S1, S2, no murmurs Abdomen: Soft, nontender, no masses Extremities: 2+ edema Neuro: Alert and oriented x 3, cranial nerves intact Current Medications: Current Medications Sig/Ann-Marie Start time Last Medication Dose Route Stop Time Status Admin Albuterol Sulfate 3 ML EVERY 4 HRS/AWAKE 04/14 800 AC 04/22 INH 0853 Amiodarone HCl 200 MG DAILY 04/14 900 AC 04/21 PO 0819 Aspirin Buffered 81 MG DAILY 04/14 900 AC 04/21 PO 0819 Atorvastatin Calcium 40 MG 1700 04/14 1700 AC 04/21 PO 1526 Budesonide/ 2 PUF BID 04/14 900 AC 04/21 Formoterol Fumarate INH 2159 Carvedilol 25 MG BID 04/14 900 AC 04/21 PO 2157 Cyanocobalamin 2,000 MCG DAILY 04/14 900 AC 04/21 PO 0819 Docusate Sodium 100 MG BID PRN 04/13 2115 AC 04/19 PO 1909 Fenofibrate 145 MG DAILY 04/14 09 AC 04/21 PO 0819 Gabapentin 900 MG Q8 04/19 1400 AC 04/22 PO 0631 Guaifenesin 600 MG Q12 04/14 1415 AC 04/21 PO 2157 Insulin Aspart 0 AT BEDTIME 04/16 2100 AC 04/17 RI 215 Insulin Aspart 0 TIDAC 04/14 0800 AC 04/21 SC 181 Insulin Detemir 30 UNITS BID 04/15 0900 AC 04/21 SC 215 Ipratropium [place] 2.5 ML EVERY 4 HRS/AWAKE 04/16 2000 AC 04/22 INH 0853 Magnesium Chloride 64 MG DAILY 04/15 1518 AC 04/21 PO 0819 Oxycodone HCl 15 MG Q4P PRN 04/20 1530 AC 04/22 PO 0631 Polyethylene Glycol 17 GM DAILY 04/14 0900 AC 04/21 PO 0819 Senna/Docusate Sodium 2 TAB DAILY NEEDED PRN 04/14 0115 AC 04/14 PO 0825 Warfarin Sodium 5 MG COUMADIN 1700 ONE 04/21 1700 DC 04/21 PO 04/21 1701 1526 Results Last 48 Hrs of Labs/Mics: Laboratory Tests 04/22/18 0615: Anion Gap 11, Estimated GFR 44 L, BUN/Creatinine Ratio 39.4 H, PT 21.0 H, INR 1.91 H, CBC w Diff NO MAN DIFF REQ, RBC 4.66 L, MCV 84.1, MCH 27.7, MCHC 32.9 L, RDW 16.3 H, MPV 9.1, Gran % 73.7, Lymphocytes % 14.3 L, Monocytes % 8.0, Eosinophils % 3.7, Basophils % 0.3, Absolute Granulocytes 6.4, Absolute Lymphocytes 1.2, Absolute Monocytes 0.7 H, Absolute Eosinophils 0.3, Absolute Basophils 0, Hepatitis A IgM Ab Pending, Hep Bs Antigen Pending, Hep B Core IgM Ab Conf Pending, Hepatitis C Antibody Pending 04/22/18 06: Alpha Fetoprotein Pending 04/21/18 0622: Anion Gap 12, Estimated GFR 41 L, BUN/Creatinine Ratio 40.0 H, PT 28.2 H, INR 2.56 H, CBC w Diff NO MAN DIFF REQ, RBC 4.49 L, MCV 84.3, MCH 27.6, MCHC 32.8 L, RDW 16.6 H, MPV 8.9, Gran % 75.0, Lymphocytes % 13.9 L, Monocytes % 6.7, Eosinophils % 4.1, Basophils % 0.3, Absolute Granulocytes 6.0, Absolute Lymphocytes 1.1 L, Absolute Monocytes 0.5, Absolute Eosinophils 0.3, Absolute Basophils 0 Recent Imaging Studies: Renal ultrasound: No hydronephrosis. Normal-appearing kidneys bilaterally. The incidentally obtained images of the liver show a 4.5 cm heterogeneous hyperechoic lesion in the right lobe of the liver with a peripheral hypoechoic halo. No definite correlate seen on the prior noncontrast chest CT which partially includes the liver. There are areas of heterogeneous low density in the liver on the prior CT scan, possibly fatty infiltration. Recommend contrast-enhanced CT or, preferably, dynamic contrast-enhanced liver MRI for definitive evaluation. Assessment/Plan Assessment/Plan Assessment: 1. Lower extremity edema related to venous insufficiency, pulmonary hypertension, with stasis dermatitis and venous stasis changes 2. Acute on chronic COPD exacerbation with production of copious amounts of sputum 3. Acute on chronic HFpEF with probable cor pulmonale and right heart failure 4. Diabetes 5. Hypertension 6. History of coronary artery disease, status post stenting; mild cardio myopathy of coronary artery disease with ejection fraction of 50-55% on last echo 03/17 7. Peripheral arterial disease 8. Atrial fibrillation 9. Prior history of DVT 10. Acute on chronic renal insufficiency 11. Possible liver mass seen on ultrasound Plan: * Check with nephrology regarding whether to restart Bumex, possibly at reduced dose of 1 mg PO twice daily * Workup for liver mass as per the medical teaM Continue telemetry? Yes
--- NOTE | 2018-04-22 12:07 | PN- Nephrology ---
Assessment/Plan Nephrology Assessment: 1. RL secondary to NSAID exposure/diuretic therapy -no significant improvement as yet but no worse 2. Severe lower extremity edema due to multiple causes including pulmonary hypertension, cor pulmonale, congestive heart failure (HFpEF) and venous insufficiency 3. ?Liver lesion 4. COPD, TOMASZ, diabetes mellitus, hypertension, hyperlipidemia, peripheral vascular disease, atrial fibrillation, morbid obesity Suggestion: 1. Agree with Dr. Mitchell that we can restart diuretic therapy in the form of bumetanide 1 mg p.o. twice daily and then adjust as needed 2. Until renal function has normalized, would avoid all forms of intravenous contrast. Would ask Radiology if a noncontrast MRI would be helpful in better characterizing his liver lesion Subjective Subjective: Patient seems somewhat dejected today possible liver lesion. He has no other new specific complaints. Urine output remains excellent despite holding diuretics. Serum creatinine has come down only slightly to 1.6. Electrolytes okay. Objective Vital Signs and I&Os Vital Signs Date Time Temp Pulse Resp B/P B/P Pulse O2 O2 Flow FiO2 Mean Ox Delivery Rate 04/22 1008 70 112/70 04/22 1007 70 112/70 04/22 0900 95 Nasal 2.0L Cannula 04/22 0659 98.2 70 22 112/70 95 Nasal Cannula 04/22 0000 95 Nasal 2.0L Cannula 04/21 2232 97.0 88 22 100/64 92 Nasal Cannula 04/21 2157 92 104/64 04/21 1625 93 Nasal 2.0L Cannula 04/21 1405 98.6 95 22 96/58 94 Nasal 2.0L Cannula Intake & Output 04/22 1600 04/22 0400 04/21 1600 04/21 0400 04/20 1600 04/20 0400 Intake Total 400 075 413 1717 1500 Output Total 1000 1000 2850 1400 4925 4300 Balance -600 -1000 -1950 -800 -3845 -2800 Intake, IV 0 Intake, Oral 400 183 678 4133 1500 Number 0 0 Bowel Movements Output, Urine 1000 1000 2850 1400 4925 4300 Patient 314 lb 307 lb Weight Weight Chair scale Standing Scale Measurement Method Physical Exam: General: Well-developed obese white male in NAD Skin: No rash or jaundice HEENT: Conjunctivae pink, sclerae anicteric, mucous membranes moist Neck: Without masses or thyromegaly, no supraclavicular or cervical adenopathy Chest: Few bibasilar rales with diminished breath sounds Heart: Irregular rhythm without S3 or rub Abdomen: Obese, soft and nontender without palpable masses or organomegaly Extremities: Both lower legs are wrapped and therefore could not be examined; there is 3+ edema in both thighs Neuro: No focal findings, no asterixis or myoclonus Results Pertinent Lab Results: Laboratory Tests 04/22 04/22 0615 0600 Chemistry Sodium (137 - 145 mmol/L) 138 Potassium (3.5 - 5.1 mmol/L) 5.0 Chloride (98 - 107 mmol/L) 96 L Carbon Dioxide (22 - 30 mmol/L) 31 H Anion Gap (5 - 16) 11 BUN (9 - 20 mg/dL) 63 H Creatinine (0.7 - 1.2 mg/dL) 1.6 H Estimated GFR (>60 ml/min) 44 L BUN/Creatinine Ratio (7 - 25 %) 39.4 H Alpha Fetoprotein Pending Coagulation PT (9.4 - 12.5 SEC) 21.0 H INR (0.90 - 1.17) 1.91 H Hematology CBC w Diff NO MAN DIFF REQ WBC (4.8 - 10.8 /CUMM) 8.6 RBC (4.70 - 6.10 /CUMM) 4.66 L Hgb (14.0 - 18.0 G/DL) 12.9 L Hct (42 - 52 %) 39.2 L MCV (80.0 - 94.0 FL) 84.1 MCH (27.0 - 31.0 PG) 27.7 MCHC (33.0 - 37.0 G/DL) 32.9 L RDW (11.5 - 14.5 %) 16.3 H Plt Count (130 - 400 /CUMM) 222 MPV (7.4 - 10.4 FL) 9.1 Gran % (42.2 - 75.2 %) 73.7 Lymphocytes % (20.5 - 51.1 %) 14.3 L Monocytes % (1.7 - 9.3 %) 8.0 Eosinophils % (0 - 5 %) 3.7 Basophils % (0.0 - 2.0 %) 0.3 Absolute Granulocytes (1.4 - 6.5 /CUMM) 6.4 Absolute Lymphocytes (1.2 - 3.4 /CUMM) 1.2 Absolute Monocytes (0.10 - 0.60 /CUMM) 0.7 H Absolute Eosinophils (0.0 - 0.7 /CUMM) 0.3 Absolute Basophils (0.0 - 0.2 /CUMM) 0 Serology Hepatitis A IgM Ab (NONREACTIVE) NONREACTIVE Hep Bs Antigen (NONREACTIVE) NONREACTIVE Hep B Core IgM Ab Conf (NONREACTIVE) NONREACTIVE Hepatitis C Antibody (NONREACTIVE) NONREACTIVE 04/21 04/20 0622 0615 Chemistry Sodium (137 - 145 mmol/L) 134 L 135 L Potassium (3.5 - 5.1 mmol/L) 5.0 5.2 H Chloride (98 - 107 mmol/L) 92 L 91 L Carbon Dioxide (22 - 30 mmol/L) 30 29 Anion Gap (5 - 16) 12 15 BUN (9 - 20 mg/dL) 68 H 67 H Creatinine (0.7 - 1.2 mg/dL) 1.7 H 1.7 H Estimated GFR (>60 ml/min) 41 L 41 L BUN/Creatinine Ratio (7 - 25 %) 40.0 H 39.4 H Coagulation PT (9.4 - 12.5 SEC) 28.2 H 37.5 H INR (0.90 - 1.17) 2.56 H 3.40 H Hematology CBC w Diff NO MAN DIFF REQ NO MAN DIFF REQ WBC (4.8 - 10.8 /CUMM) 8.0 10.6 RBC (4.70 - 6.10 /CUMM) 4.49 L 4.80 Hgb (14.0 - 18.0 G/DL) 12.4 L 13.2 L Hct (42 - 52 %) 37.8 L 40.4 L MCV (80.0 - 94.0 FL) 84.3 84.3 MCH (27.0 - 31.0 PG) 27.6 27.4 MCHC (33.0 - 37.0 G/DL) 32.8 L 32.5 L RDW (11.5 - 14.5 %) 16.6 H 16.0 H Plt Count (130 - 400 /CUMM) 227 267 MPV (7.4 - 10.4 FL) 8.9 8.8 Gran % (42.2 - 75.2 %) 75.0 74.2 Lymphocytes % (20.5 - 51.1 %) 13.9 L 14.4 L Monocytes % (1.7 - 9.3 %) 6.7 7.1 Eosinophils % (0 - 5 %) 4.1 4.0 Basophils % (0.0 - 2.0 %) 0.3 0.3 Absolute Granulocytes (1.4 - 6.5 /CUMM) 6.0 7.8 H Absolute Lymphocytes (1.2 - 3.4 /CUMM) 1.1 L 1.5 Absolute Monocytes (0.10 - 0.60 /CUMM) 0.5 0.7 H Absolute Eosinophils (0.0 - 0.7 /CUMM) 0.3 0.4 Absolute Basophils (0.0 - 0.2 /CUMM) 0 0 04/19 1355 Chemistry Sodium (137 - 145 mmol/L) 135 L Potassium (3.5 - 5.1 mmol/L) 5.3 H Chloride (98 - 107 mmol/L) 92 L Carbon Dioxide (22 - 30 mmol/L) 31 H Anion Gap (5 - 16) 12 BUN (9 - 20 mg/dL) 57 H Creatinine (0.7 - 1.2 mg/dL) 1.7 H Estimated GFR (>60 ml/min) 41 L BUN/Creatinine Ratio (7 - 25 %) 33.5 H Urines Urine Color (YEL,AMB,STR) YEL Urine Clarity (CLEAR) CLEAR Urine pH (5.0 - 8.0) 6.5 Ur Specific [place] (1.001 - 1.035) 1.010 Urine Protein (NEG,<30 MG/DL) NEG Urine Ketones (NEG) NEG Urine Nitrite (NEG) NEG Urine Bilirubin (NEG) NEG Urine Urobilinogen (0.1 - 1.0 EU/dl) 0.2 Ur Leukocyte Esterase (NEG) NEG Ur Microscopic EXAM NOT REQUIRED Urine Hemoglobin (NEG) NEG Urine Glucose (N MG/DL) NEG
[2018-04-22 15:21] VITALS: BP 118/78
[2018-04-22 22:33] VITALS: BP 102/60
[2018-04-23 06:31] VITALS: BP 116/60
--- NOTE | 2018-04-23 07:47 | PN- Housestaff ---
Hector VILLASENOR,Lenard 04/23/18 0747: Subjective Follow-up For: RL Dyspnea 2/2 CHF/COPD Exacerbation A.fib Hepatic Mass Tele-Events Since Last Visit: Flora HR: 79-100 Subjective: Patient was seen and examined. Patient complaining of severe leg pain. States his current regimen is not working. Would like to try percocet as it worked for him at home. Patient's breathing continues to improve. Patient denies chest pain , palpitations, fever/chills, n/v. Patient is feeling constipated. No acute events overnight. Review of Systems Constitutional: Reports: see HPI. Objective Last 24 Hrs of Vital Signs/I&O Vital Signs Date Time Temp Pulse Resp B/P B/P Pulse O2 O2 Flow FiO2 Mean Ox Delivery Rate 04/23 1400 98.9 80 18 110/48 91 Nasal 2.5L Cannula 04/23 0902 92 Nasal 2.5L Cannula 04/23 0826 90 128/72 04/23 0826 90 128/72 04/23 0800 93 Nasal 2.5L Cannula 04/23 0631 97.7 78 20 116/60 93 Nasal Cannula 04/23 0506 96 Nasal 2.5L Cannula 04/23 0000 Nasal 2.0L Cannula 04/22 2233 98.1 92 22 102/60 94 Nasal Cannula 04/22 2032 96 138/70 04/22 1646 93 Nasal 2.0L Cannula 04/22 1600 Nasal 2.0L Cannula Intake & Output 04/23 1600 04/23 0800 04/23 0000 Intake Total 694 526 0797 Output Total 1900 1275 1800 Balance -1180 -475 -800 Intake, Oral 565 369 0698 Number 1 0 Bowel Movements Output, Urine 1900 1275 1800 Physical Exam General Appearance: Alert, Cooperative, Mild Distress Other Physical Findings: Skin Temp/Moisture Exam: Warm/Dry HEENT: Atraumatic, Mucous Membr. moist/pink Cardiovascular: Normal S1, Normal S2, irregular rate Lungs: bilateral prolonged expiratory wheezing, fine crackles scattered throughout lung wheeler Abdomen: Normal Bowel Sounds, Soft, No Tenderness Neurological: Normal Speech, Strength at 5/5 X4 Ext, Normal Tone, Sensation Intact, Cranial Nerves 3-12 NL Extremities: bilateral lower extremity edema with wheeping wounds improved from previous day Current Medications: Current Medications Sig/Ann-Marie Start time Last Medication Dose Route Stop Time Status Admin Albuterol Sulfate 3 ML EVERY 4 HRS/AWAKE 04/14 08 AC 04/23 INH 1308 Amiodarone HCl 200 MG DAILY 04/14 09 AC 04/23 PO 0826 Aspirin Buffered 81 MG DAILY 04/14 0900 AC 04/23 PO 0826 Atorvastatin Calcium 40 MG 1700 04/14 1700 AC 04/22 PO 1648 Budesonide/ 2 PUF BID 04/14 09 AC 04/23 Formoterol Fumarate INH 0827 Bumetanide 1 MG BID 04/22 1330 AC 04/23 PO 0826 Carvedilol 25 MG BID 04/14 09 AC 04/23 PO 0826 Cyanocobalamin 2,000 MCG DAILY 04/14 09 AC 04/23 PO 0826 Docusate Sodium 100 MG BID 04/23 2100 AC PO Docusate Sodium 100 MG BID PRN 04/13 2115 AC 04/23 PO 04/23 205 0836 Fenofibrate 145 MG DAILY 04/14 09 AC 04/23 PO 0826 Gabapentin 900 MG Q8 04/19 1400 AC 04/23 PO 1331 Guaifenesin 600 MG Q12 04/14 141 AC 04/23 PO 0826 Insulin Aspart 0 AT BEDTIME 04/16 2100 AC 04/17 [place] 2151 Insulin Aspart 0 TIDAC 04/14 08 04/23 SC 1247 Insulin Detemir 30 UNITS BID 04/15 09 AC 04/23 SC 0825 Ipratropium [place] 2.5 ML EVERY 4 HRS/AWAKE 04/16 2000 AC 04/23 INH 1308 Magnesium Chloride 64 MG DAILY 04/15 1518 AC 04/23 PO 0826 Morphine Sulfate 15 MG ONCE ONE 04/23 0230 DC 04/23 PO 04/23 0231 0229 Morphine Sulfate 15 MG BID 04/22 1051 AC 04/23 PO 0825 Oxycodone HCl 15 MG Q4P PRN 04/23 0945 CAN PO Oxycodone HCl 5 MG Q6P PRN 04/23 0945 DC 04/23 PO 1028 Oxycodone/ 1 TAB Q6P PRN 04/23 1545 UNVr Acetaminophen PO Oxycodone/ 2 TAB Q6P PRN 04/23 0945 DC Acetaminophen PO Polyethylene Glycol 17 GM DAILY 04/14 09 AC 04/23 PO 0826 Senna/Docusate Sodium 2 TAB DAILY NEEDED PRN 04/14 0115 AC 04/23 PO 1411 Warfarin Sodium 10 MG COUMADIN 1700 04/23 1700 AC PO 04/23 2359 Warfarin Sodium 10 MG COUMADIN 1700 ONE 04/22 1700 DC 04/22 PO 04/22 1701 1648 Last 24 Hrs of Lab/[place] Results Last 24 Hrs of Labs/Mics: Laboratory Tests 04/23/18 0625: Anion Gap 7, Estimated GFR 51 L, BUN/Creatinine Ratio 41.4 H, PT 22.7 H, INR 2.07 H Assessment/Plan Assessment: Patient is a 62-year-old male with a PMH significant for A. fib, left lower extremity DVT, CAD status post PCI, HLD, chronic venous insufficiency, PVD on 2 L O2 baseline, type 2 diabetes mellitus who presented to [facility] complaining of worsening shortness of breath, he was referred into the ED by Dr. Zhu from the wound care center. Patient is admitted to the telemetry floor for management of the followin. RL Acute increase in BUN and Cr from baseline of 0.9 to 1.7. Patient was previously on IV lasix and then switched to bumex. Patient also got ketoralac IV 30 mg x 2 which may have precipitated his RL in the setting of diuresis. Cr has decreased slighly to 1.4. Renal ultrasound was obtained which shows no hydronephrosis and normal appearing kidneys. - will avoid nephrotoxic medications - strict I/O - nephrology consulted - continue bumex at 1mg daily - will continue to monitor creatinine off diuretics 2. Lower extremity pain Patient continues to have lower extremity pain. Was placed on long acting oxy yesterday. Will restart percocet which he takes at home at a lower dose. - continue gabapentin - percocet q6h PRN - oxycontin 15mg BID 3. Dyspnea, multifactorial Patient's wheezing is improving with breathing treatments. Continues to have dyspnea on exertion however appears to be improving slightly. -Bumex 1mg PO daily -Continue TRC/nebs, continue Mucinex twice daily -Continue to hold steroids for now -Patient is to follow up outpatient with Dr. Worthy for further evaluation and treatment of TOMASZ -Cardiology and pulmonology on board. Appreciate recommendations. 4. Subtherapeutic INR- now therapeutic -Home dose is 10 mg -Monitor INR and dose coumadin as needed to maintain INR between 2-3 5. Incidental hepatic mass - will need further imaging. Multiple discussions with the patient on possible avenues. Due to patient's RL will hold off at this point as he will likley require contrast. #Chronic medical problems including A. fib, CAD, DM, HTN - Continue home medical regimen - Hold oral hypoglycemics - Accu-Cheks 3 times daily before meals and at bedtime, - Continue NovoLog sliding increased dosage today due to uncontrolled blood sugars - Continue Levemir 30 units twice daily as his fingerstick glucose readings were elevated overnight Diet: Diabetic, sodium restriction DVT prophylaxis: coumadin, Alps CODE STATUS: Full code Dispo: Family meeting today Problem List: 1. Lower extremity edema 2. Dyspnea Pain Ratin Pain Location: lower extremity Pain Goal: Remain pain free Pain Plan: gabapentin oxycontin percocet Tomorrow's Labs & Rationales: bep - rl, bumex inr - coumadin Jodie Guajardo MD 04/23/18 1248: Attending MD Review Statement Attending Statement Attending MD Statement: examined this patient, discuss w/resident/PA/MILLWRIGHT HELPER, agreed w/resident/PA/MILLWRIGHT HELPER, reviewed EMR data (avail) Attending Assessment/Plan: 62M PMH CHF, COPD on 2L home O2, DM, CAD, a fib presenting with several weeks of SOB, recently seen in CHF clinic and given IV Lasix with no improvement, found to be fluid overloaded here, wheezing on exam, EKG no changes. Pain improved from yesterday. Able to ambulate, still dyspneic but improved. Leg edema improved. RUQ ultrasound shows 4.3cm hyperechoic lesion. 1. Acute on chronic systolic CHF 2. COPD Exacerbation Plan - Continue on telemetry - Continue Oxycodone PRN and standing MS-contin - I/O, daily weights - Follow cardiology, pulmonary, nephrology recommendations - Nebulizer treatments - Leg compression and elevation - Continue home medications - DVT PPx - Outpatient workup for liver lesion, as patient cannot get contrast CT at this time due to creatinine, and cannot tolerate MRI due to orthopnea and back pain
[2018-04-23 08:16] LABS: PT 22.7 SEC (9.4-12.5)
--- NOTE | 2018-04-23 12:01 | PN- Cardiology ---
Subjective Subjective: The patient continues to complain of lower extremity pain. His edema is somewhat better. Renal function is improving. No chest pain. No shortness of breath. No diaphoresis Objective Vital Signs and I&Os Vital Signs Date Time Temp Pulse Resp B/P B/P Pulse O2 O2 Flow FiO2 Mean Ox Delivery Rate 04/23 0902 92 Nasal 2.5L Cannula 04/23 08 90 128/72 04/23 0826 90 128/72 04/23 0800 93 Nasal 2.5L Cannula 04/23 0631 97.7 78 20 116/60 93 Nasal Cannula 04/23 0506 96 Nasal 2.5L Cannula 04/23 0000 Nasal 2.0L Cannula 04/22 2233 98.1 92 22 102/60 94 Nasal Cannula 04/22 2032 96 138/70 04/22 1646 93 Nasal 2.0L Cannula 04/22 1600 Nasal 2.0L Cannula 04/22 1521 98.1 89 22 118/78 93 Nasal Cannula Intake & Output 04/23 1600 04/23 0800 04/23 0000 04/22 1600 04/22 0800 04/22 0000 Intake Total 834 829 6960 400 Output Total 725 1275 9459 943 9617 1000 Balance -725 -475 -850 250 -600 -1000 Intake, Oral 440 048 2327 400 Number 0 0 Bowel Movements Output, Urine 725 1275 8962 130 3704 1000 Physical Exam: Gen: NAD HEENT: normal Lungs: Scattered rhonchi bilateral, normal resp. effort Heart: RRR, S1, S2, no murmurs Abdomen: Soft, nontender, no masses Extremities: 2+ edema Neuro: Alert and oriented x 3, cranial nerves intact Current Medications: Current Medications Sig/Ann-Marie Start time Last Medication Dose Route Stop Time Status Admin Albuterol Sulfate 3 ML EVERY 4 HRS/AWAKE 04/14 800 AC 04/23 INH 0858 Amiodarone HCl 200 MG DAILY 04/14 900 AC 04/23 PO 08 Aspirin Buffered 81 MG DAILY 04/14 900 AC 04/23 PO 08 Atorvastatin Calcium 40 MG 1700 04/14 1700 AC 04/22 PO 1648 Budesonide/ 2 PUF BID 04/14 900 AC 04/23 Formoterol Fumarate INH 0827 Bumetanide 1 MG BID 04/22 1330 AC 04/23 PO 08 Carvedilol 25 MG BID 04/14 900 AC 04/23 PO 0826 Cyanocobalamin 2,000 MCG DAILY 04/14 09 AC 04/23 PO 0826 Docusate Sodium 100 MG BID PRN 04/13 211 AC 04/23 PO 0836 Fenofibrate 145 MG DAILY 04/14 09 AC 04/23 PO 0826 Gabapentin 900 MG Q8 04/19 1400 AC 04/23 PO 0620 Guaifenesin 600 MG Q12 04/14 1415 AC 04/23 PO 0826 Insulin Aspart 0 AT BEDTIME 04/16 2100 AC 04/17 [place] 2151 Insulin Aspart 0 TIDAC 04/14 08 AC 04/23 SC 0825 Insulin Detemir 30 UNITS BID 04/15 09 AC 04/23 SC 0825 Ipratropium [place] 2.5 ML EVERY 4 HRS/AWAKE 04/16 2000 AC 04/23 INH 0858 Magnesium Chloride 64 MG DAILY 04/15 1518 AC 04/23 PO 0826 Morphine Sulfate 15 MG ONCE ONE 04/23 0230 DC 04/23 PO 04/23 0231 0229 Morphine Sulfate 15 MG BID 04/22 1051 AC 04/23 PO 0825 Oxycodone HCl 15 MG Q4P PRN 04/23 0945 CAN PO Oxycodone HCl 5 MG Q6P PRN 04/23 0945 AC 04/23 PO 1028 Oxycodone/ 2 TAB Q6P PRN 04/23 0945 AC Acetaminophen PO Polyethylene Glycol 17 GM DAILY 04/14 09 AC 04/23 PO 0826 Senna/Docusate Sodium 2 TAB DAILY NEEDED PRN 04/14 0115 AC 04/14 PO 0825 Warfarin Sodium 10 MG COUMADIN 1700 ONE 04/22 1700 DC 04/22 PO 04/22 1701 1648 Results Last 48 Hrs of Labs/Mics: Laboratory Tests 04/23/18 0625: Anion Gap 7, Estimated GFR 51 L, BUN/Creatinine Ratio 41.4 H, PT 22.7 H, INR 2.07 H 04/22/18 0615: Anion Gap 11, Estimated GFR 44 L, BUN/Creatinine Ratio 39.4 H, PT 21.0 H, INR 1.91 H, CBC w Diff NO MAN DIFF REQ, RBC 4.66 L, MCV 84.1, MCH 27.7, MCHC 32.9 L, RDW 16.3 H, MPV 9.1, Gran % 73.7, Lymphocytes % 14.3 L, Monocytes % 8.0, Eosinophils % 3.7, Basophils % 0.3, Absolute Granulocytes 6.4, Absolute Lymphocytes 1.2, Absolute Monocytes 0.7 H, Absolute Eosinophils 0.3, Absolute Basophils 0, Hepatitis A IgM Ab NONREACTIVE, Hep Bs Antigen NONREACTIVE, Hep B Core IgM Ab Conf NONREACTIVE, Hepatitis C Antibody NONREACTIVE 04/22/18 0600: Alpha Fetoprotein Pending Assessment/Plan Assessment/Plan Assessment: 1. Lower extremity edema related to venous insufficiency, pulmonary hypertension, with stasis dermatitis and venous stasis changes 2. Acute on chronic COPD exacerbation with production of copious amounts of sputum 3. Acute on chronic HFpEF with probable cor pulmonale and right heart failure 4. Diabetes 5. Hypertension 6. History of coronary artery disease, status post stenting; mild cardio myopathy of coronary artery disease with ejection fraction of 50-55% on last echo 03/17 7. Peripheral arterial disease 8. Atrial fibrillation 9. Prior history of DVT 10. Acute on chronic renal insufficiency 11. Possible liver mass seen on ultrasound Plan: * Continue Bumex 1 mg p.o. twice daily * Monitor input and output with daily weights * Workup for liver mass as per the medical team * Check basic metabolic profile daily Continue telemetry? Yes
--- NOTE | 2018-04-23 12:42 | PN- Nephrology ---
Assessment/Plan Nephrology Assessment: 1. RL secondary to NSAID exposure/diuretic therapy -creatinine continues to slowly improve 2. Severe lower extremity edema due to multiple causes including pulmonary hypertension, cor pulmonale, congestive heart failure (HFpEF) and venous insufficiency 3. ?Liver lesion 4. COPD, TOMASZ, diabetes mellitus, hypertension, hyperlipidemia, peripheral vascular disease, atrial fibrillation, morbid obesity Suggestion: 1. Continue bumetanide 1 mg p.o. twice daily 2. Obviously need to avoid any further exposure to any NSAIDs 3. Would ask Radiology if a noncontrast MRI would be helpful in better characterizing his liver lesion. Alternatively, if/when his creatinine returns to baseline (1.1-1.2) then can consider CT scan or MRI with contrast Subjective Subjective: Patient slept poorly and feels somewhat dejected today. He is under the impression that he has cancer in his liver. I explained to him that we do not as yet now what the liver lesion represents. From a renal standpoint, his creatinine continues to improve and he continues to be in negative fluid balance. Bumetanide has been restarted at a dose of 1 mg p.o. twice daily. Objective Vital Signs and I&Os Vital Signs Date Time Temp Pulse Resp B/P B/P Pulse O2 O2 Flow FiO2 Mean Ox Delivery Rate 04/23 0902 92 Nasal 2.5L Cannula 04/23 0826 90 128/72 04/23 0826 90 128/72 04/23 0800 93 Nasal 2.5L Cannula 04/23 0631 97.7 78 20 116/60 93 Nasal Cannula 04/23 0506 96 Nasal 2.5L Cannula 04/23 0000 Nasal 2.0L Cannula 04/22 2233 98.1 92 22 102/60 94 Nasal Cannula 04/22 2032 96 138/70 04/22 1646 93 Nasal 2.0L Cannula 04/22 1600 Nasal 2.0L Cannula 04/22 1521 98.1 89 22 118/78 93 Nasal Cannula Intake & Output 04/23 1600 04/23 0400 04/22 1600 04/22 0400 04/21 1600 04/21 0400 Intake Total 620 597 7492 900 600 Output Total 1924 1800 1800 1000 2850 1400 Balance -1125 -1250 -350 -1000 -1950 -800 Intake, Oral 188 850 3407 900 600 Number 0 0 0 Bowel Movements Output, Urine 1925 1800 1800 1000 2850 1400 Patient 314 lb Weight Weight Chair scale Measurement Method Physical Exam: General: Well-developed obese white male in NAD Skin: No rash or jaundice HEENT: Conjunctivae pink, sclerae anicteric, mucous membranes moist Neck: Without masses or thyromegaly, no supraclavicular or cervical adenopathy Chest: No rales or rhonchi heard today Heart: Regular rate and rhythm without S3 or rub Abdomen: Obese, soft and nontender without palpable masses or organomegaly Extremities: Both lower legs are wrapped and not be examined; there is 2-3+ edema in both thighs Neuro: No focal findings, no asterixis or myoclonus Results Pertinent Lab Results: Laboratory Tests 04/23 04/22 04/22 0625 0615 0600 Chemistry Sodium (137 - 145 mmol/L) 137 138 Potassium (3.5 - 5.1 mmol/L) 4.3 5.0 Chloride (98 - 107 mmol/L) 96 L 96 L Carbon Dioxide (22 - 30 mmol/L) 34 H 31 H Anion Gap (5 - 16) 7 11 BUN (9 - 20 mg/dL) 58 H 63 H Creatinine (0.7 - 1.2 mg/dL) 1.4 H 1.6 H Estimated GFR (>60 ml/min) 51 L 44 L BUN/Creatinine Ratio (7 - 25 %) 41.4 H 39.4 H Alpha Fetoprotein Pending Coagulation PT (9.4 - 12.5 SEC) 22.7 H 21.0 H INR (0.90 - 1.17) 2.07 H 1.91 H Hematology CBC w Diff NO MAN DIFF REQ WBC (4.8 - 10.8 /CUMM) 8.6 RBC (4.70 - 6.10 /CUMM) 4.66 L Hgb (14.0 - 18.0 G/DL) 12.9 L Hct (42 - 52 %) 39.2 L MCV (80.0 - 94.0 FL) 84.1 MCH (27.0 - 31.0 PG) 27.7 MCHC (33.0 - 37.0 G/DL) 32.9 L RDW (11.5 - 14.5 %) 16.3 H Plt Count (130 - 400 /CUMM) 222 MPV (7.4 - 10.4 FL) 9.1 Gran % (42.2 - 75.2 %) 73.7 Lymphocytes % (20.5 - 51.1 %) 14.3 L Monocytes % (1.7 - 9.3 %) 8.0 Eosinophils % (0 - 5 %) 3.7 Basophils % (0.0 - 2.0 %) 0.3 Absolute Granulocytes (1.4 - 6.5 /CUMM) 6.4 Absolute Lymphocytes (1.2 - 3.4 /CUMM) 1.2 Absolute Monocytes (0.10 - 0.60 /CUMM) 0.7 H Absolute Eosinophils (0.0 - 0.7 /CUMM) 0.3 Absolute Basophils (0.0 - 0.2 /CUMM) 0 Serology Hepatitis A IgM Ab (NONREACTIVE) NONREACTIVE Hep Bs Antigen (NONREACTIVE) NONREACTIVE Hep B Core IgM Ab Conf (NONREACTIVE) NONREACTIVE Hepatitis C Antibody (NONREACTIVE) NONREACTIVE 04/21 622 Chemistry Sodium (137 - 145 mmol/L) 134 L Potassium (3.5 - 5.1 mmol/L) 5.0 Chloride (98 - 107 mmol/L) 92 L Carbon Dioxide (22 - 30 mmol/L) 30 Anion Gap (5 - 16) 12 BUN (9 - 20 mg/dL) 68 H Creatinine (0.7 - 1.2 mg/dL) 1.7 H Estimated GFR (>60 ml/min) 41 L BUN/Creatinine Ratio (7 - 25 %) 40.0 H Coagulation PT (9.4 - 12.5 SEC) 28.2 H INR (0.90 - 1.17) 2.56 H Hematology CBC w Diff NO MAN DIFF REQ WBC (4.8 - 10.8 /CUMM) 8.0 RBC (4.70 - 6.10 /CUMM) 4.49 L Hgb (14.0 - 18.0 G/DL) 12.4 L Hct (42 - 52 %) 37.8 L MCV (80.0 - 94.0 FL) 84.3 MCH (27.0 - 31.0 PG) 27.6 MCHC (33.0 - 37.0 G/DL) 32.8 L RDW (11.5 - 14.5 %) 16.6 H Plt Count (130 - 400 /CUMM) 227 MPV (7.4 - 10.4 FL) 8.9 Gran % (42.2 - 75.2 %) 75.0 Lymphocytes % (20.5 - 51.1 %) 13.9 L Monocytes % (1.7 - 9.3 %) 6.7 Eosinophils % (0 - 5 %) 4.1 Basophils % (0.0 - 2.0 %) 0.3 Absolute Granulocytes (1.4 - 6.5 /CUMM) 6.0 Absolute Lymphocytes (1.2 - 3.4 /CUMM) 1.1 L Absolute Monocytes (0.10 - 0.60 /CUMM) 0.5 Absolute Eosinophils (0.0 - 0.7 /CUMM) 0.3 Absolute Basophils (0.0 - 0.2 /CUMM) 0
--- NOTE | 2018-04-23 13:00 | PN- Pulmonary ---
Subjective HPI/Critical Care Issues: pt seen and examined back pain is significant dyspnea improved cough improved leg edema stable no cp no n/v/d/c Objective Current Medications: Current Medications Sig/Ann-Marie Start time Last Medication Dose Route Stop Time Status Admin Albuterol Sulfate 3 ML EVERY 4 HRS/AWAKE 04/14 08 AC 04/23 INH 0858 Amiodarone HCl 200 MG DAILY 04/14 09 AC 04/23 PO 0826 Aspirin Buffered 81 MG DAILY 04/14 09 AC 04/23 PO 0826 Atorvastatin Calcium 40 MG 1700 04/14 1700 AC 04/22 PO 1648 Budesonide/ 2 PUF BID 04/14 09 AC 04/23 Formoterol Fumarate INH 0827 Bumetanide 1 MG BID 04/22 1330 AC 04/23 PO 0826 Carvedilol 25 MG BID 04/14 09 AC 04/23 PO 0826 Cyanocobalamin 2,000 MCG DAILY 04/14 09 AC 04/23 PO 0826 Docusate Sodium 100 MG BID PRN 04/13 2115 AC 04/23 PO 0836 Fenofibrate 145 MG DAILY 04/14 09 AC 04/23 PO 0826 Gabapentin 900 MG Q8 04/19 1400 AC 04/23 PO 0620 Guaifenesin 600 MG Q12 04/14 1415 AC 04/23 PO 0826 Insulin Aspart 0 AT BEDTIME 04/16 2100 AC 04/17 [place] 2151 Insulin Aspart 0 TIDAC 04/14 08 04/23 SC 1247 Insulin Detemir 30 UNITS BID 04/15 09 AC 04/23 SC 0825 Ipratropium [place] 2.5 ML EVERY 4 HRS/AWAKE 04/16 2000 AC 04/23 INH 0858 Magnesium Chloride 64 MG DAILY 04/15 1518 AC 04/23 PO 0826 Morphine Sulfate 15 MG ONCE ONE 04/23 0230 DC 04/23 PO 04/23 0231 0229 Morphine Sulfate 15 MG BID 04/22 1051 AC 04/23 PO 0825 Oxycodone HCl 15 MG Q4P PRN 04/23 0945 CAN PO Oxycodone HCl 5 MG Q6P PRN 04/23 0945 AC 04/23 PO 1028 Oxycodone/ 2 TAB Q6P PRN 04/23 0945 AC Acetaminophen PO Polyethylene Glycol 17 GM DAILY 04/14 09 AC 04/23 PO 0826 Senna/Docusate Sodium 2 TAB DAILY NEEDED PRN 04/14 0115 AC 04/14 PO 0825 Warfarin Sodium 10 MG COUMADIN 1700 ONE 04/22 1700 DC 04/22 PO 04/22 1701 1648 Vital Signs & I&O Last 24 Hrs of Vitals and I&O: Vital Signs Date Time Temp Pulse Resp B/P B/P Pulse O2 O2 Flow FiO2 Mean Ox Delivery Rate 04/23 0902 92 Nasal 2.5L Cannula 04/23 0826 90 128/72 04/23 0826 90 128/72 04/23 0800 93 Nasal 2.5L Cannula 04/23 0631 97.7 78 20 116/60 93 Nasal Cannula 04/23 0506 96 Nasal 2.5L Cannula 04/23 0000 Nasal 2.0L Cannula 04/22 2233 98.1 92 22 102/60 94 Nasal Cannula 04/22 2032 96 138/70 04/22 1646 93 Nasal 2.0L Cannula 04/22 1600 Nasal 2.0L Cannula 04/22 1521 98.1 89 22 118/78 93 Nasal Cannula Intake & Output 04/23 1600 04/23 0800 04/23 0000 Intake Total 800 1000 Output Total 1050 1275 1800 Balance -1050 -475 -800 Intake, Oral 800 1000 Number 0 Bowel Movements Output, Urine 1050 1275 1800 Exam Other Physical Findings: gen awake and alert head/neck - nasal cannula cvs s1, s2 lungs bilateral crackles abd obese ext wrapping intact, edematous/pitting Results Last 24 Hrs of Lab Results: Laboratory Tests 04/23/18 0625: Anion Gap 7, Estimated GFR 51 L, BUN/Creatinine Ratio 41.4 H, PT 22.7 H, INR 2.07 H Impression/Plan Impression/Plan Impression/Plan: Impression 62 year old man * CHF exacerbation * COPD stable at this point * untreated TOMASZ secondary to patient wishes knowing risks * RL - diuresis (prerenal) vs NSAID (ketorolac) induced * incidental heterogeneous hyperechoic lesion in the right lobe of the liver, posisble fatty infiltration, further imaging was recommended Plan -cardiology/nephrology consultations reviewed -diuresis per cardiology/nephrology -avoid nephrotoxic agents -continue albuterol/ipratropium q4h -continue to monitor glucose -declines TOMASZ tx knowing risks - will revisit on an outpatient basis Please do not use steroids without discussing with the pulmonary service - can call me at any time. Patient can be seen in the office, he will not be seen by the pulmonary service over the weekend. DC planning DVT prophylaxis at all times
[2018-04-23 14:00] VITALS: BP 110/48
[2018-04-23] MEDS ORDERED: BUMETANIDE1 M1 PO (15:56)
--- NOTE | 2018-04-23 15:59 | Patient Discharge Instructions ---
Discharge Instructions General Discharge Information You were seen/treated for: shortness of breath Special Instructions: follow up with your guest relations agent within one week of discharge call the CHF clinic on thursday and make an appointment. You will need to go there twice a week follow up with your pest control supervisor for plumonary function test upon discharge Diet Recommended Diet: Heart Healthy Acute Coronary Syndrome Inclusion Criteria At DC or during hospital stay patient has or had the following: ACS DIAGNOSIS No Discharge Core Measures Meds if any: Prescribed or Continued at Discharge Meds if any: NOT Prescribed or Continued at Discharge Congestive Heart Failure Inclusion Criteria At DC or during hospital stay patient has or had the following: CHF DIAGNOSIS Yes Discharge Core Measures Meds if any: Prescribed or Continued at Discharge DAVI/ARB for EF <40% No Meds if any: NOT Prescribed or Continued at Discharge No DAVI/ARB d/t Medical Contraindication Cerebrovascular accident Inclusion Criteria At DC or during hospital stay patient has or had the following: CVA/TIA Diagnosis No Discharge Core Measures Meds if any: Prescribed or Continued at Discharge Meds if any: NOT Prescribed or Continued at Discharge Venous thromboembolism Inclusion Criteria VTE Diagnosis No VTE Type NONE VTE Confirmed by (Test) NONE Discharge Core Measures - Per Current guidelines, there needs to be overlap - treatment for the first 5 days of Warfarin therapy. - If discharged on Warfarin prior to 5 days of - overlap therapy, the patient will need to be - assessed for post discharge needs including - *Post discharge parental anticoagulation - *Warfarin and/or parental anticoagulation education - *Follow up date to check INR post discharge At least 5 days overlap therapy as Inpatient No Meds if any: Prescribed or Continued at Discharge Note: Overlap Therapy is Warfarin and Anticoagulant Meds if any: NOT Prescribed or Continued at Discharge
[2018-04-23 23:34] VITALS: BP 118/60
[2018-04-24 06:43] VITALS: BP 130/68
[2018-04-24 08:33] LABS: PT 32.7 SEC (9.4-12.5)
--- NOTE | 2018-04-24 09:13 | PN- Housestaff ---
Subjective Follow-up For: RL Dyspnea 2/2 CHF/COPD Exacerbation A.fib Hepatic Mass Tele-Events Since Last Visit: Atrial fibrillation, PVCs Heart rate 74-89 Subjective: Patient complains of severe pain and spiked in bilateral lower extremities, without much relief with pain medications. Also complaining of dyspnea, afraid of even going to the restroom because it makes him short of breath. Review of Systems Constitutional: Reports: no symptoms. EENTM: Reports: no symptoms. Cardiovascular: Reports: orthopena, peripheral edema. Respiratory: Reports: short of breath. Gastrointestinal: Reports: no symptoms. Genitourinary: Reports: no symptoms. Musculoskeletal: Reports: back pain, muscle pain. Skin: Reports: no symptoms. Neurological/Psychological: Reports: no symptoms. Hematologic/Endocrine: Reports: no symptoms. Immunologic/Allergic: Reports: no symptoms. Objective Last 24 Hrs of Vital Signs/I&O Vital Signs Date Time Temp Pulse Resp B/P B/P Pulse O2 O2 Flow FiO2 Mean Ox Delivery Rate 04/24 1503 97.5 83 20 90/50 93 Nasal Cannula 04/24 1118 95 Nasal 2.5L Cannula 04/24 0848 88 130/68 04/24 0848 88 130/68 04/24 0800 97 Nasal 2.5L Cannula 04/24 0643 98.3 86 20 130/68 95 Nasal Cannula 04/24 0630 95 Nasal 2.5L Cannula 04/24 0000 Nasal 2.5L Cannula 04/23 2334 98.1 80 20 118/60 94 Nasal Cannula 04/23 2203 80 110/48 Intake & Output 04/24 1600 04/24 0800 04/24 0000 Intake Total 420 Output Total 1550 1800 900 Balance -1130 -1800 -900 Intake, IV 20 Intake, Oral 400 Output, Urine 1550 1800 900 Patient 318 lb Weight Weight Chair scale Measurement Method Physical Exam General Appearance: Alert, Oriented X3, Cooperative, Moderate Distress Skin: No Rashes, No Breakdown Cardiovascular: Normal S1, Normal S2, irregularly irregular Lungs: crackles bilaterally Abdomen: Normal Bowel Sounds, Soft, No Tenderness Extremities: No Clubbing, No Cyanosis, +2-3 pitting edema bilaterally, wrapped in Willie dressings Current Medications: Current Medications Sig/Ann-Marie Start time Last Medication Dose Route Stop Time Status Admin Albuterol Sulfate 3 ML EVERY 4 HRS/AWAKE 04/14 0800 AC 04/24 INH 1405 Amiodarone HCl 200 MG DAILY 04/14 0900 AC 04/24 PO 0848 Aspirin Buffered 81 MG DAILY 04/14 09 AC 04/24 PO 0848 Atorvastatin Calcium 40 MG 1700 04/14 1700 AC 04/24 PO 1707 Budesonide/ 2 PUF BID 04/14 09 AC 04/24 Formoterol Fumarate INH 0848 Bumetanide 1 MG BID 04/22 1330 AC 04/24 PO 0939 Carvedilol 25 MG BID 04/14 09 AC 04/24 PO 0848 Cyanocobalamin 2,000 MCG DAILY 04/14 09 AC 04/24 PO 0847 Digoxin 0.125 [place] [address]/25 1700 AC PO Docusate Sodium 100 MG BID 04/23 2100 AC 04/24 PO 0848 Docusate Sodium 100 MG BID PRN 04/13 211 DC 04/23 PO 04/23 205 0836 Fenofibrate 145 MG DAILY 04/14 09 04/24 PO 0848 Gabapentin 900 MG Q8 04/19 1400 AC 04/24 PO 1312 Guaifenesin 600 MG Q12 04/14 1415 AC 04/24 PO 0848 Hydromorphone HCl 0.6 MG ONCE ONE 04/24 0330 DC 04/24 IV 04/24 0331 0347 Insulin Aspart 0 AT BEDTIME 04/16 2100 AC 04/17 [place] 2151 Insulin Aspart 0 TIDAC 04/14 08 04/24 SC 1707 Insulin Detemir 30 UNITS BID 04/15 09 04/24 SC 0847 Ipratropium [place] 2.5 ML EVERY 4 HRS/AWAKE 04/16 2000 AC 04/24 INH 1405 Magnesium Chloride 64 MG DAILY 04/15 1518 AC 04/24 PO 0847 Morphine Sulfate 15 MG BID 04/22 1051 AC 04/24 PO 0849 Oxycodone/ 1 TAB ONCE ONE 04/24 1545 DC 04/24 Acetaminophen PO 04/24 1546 1707 Oxycodone/ 1 TAB Q6P PRN 04/23 1545 AC 04/24 Acetaminophen PO 1124 Polyethylene Glycol 17 GM DAILY 04/14 09 AC 04/24 PO 0847 Senna/Docusate Sodium 2 TAB DAILY NEEDED PRN 04/14 0115 AC 04/23 PO 1411 Warfarin Sodium 10 MG COUMADIN 1700 04/23 1700 DC 04/23 PO 04/23 9011 170 Last 24 Hrs of Lab/[place] Results Last 24 Hrs of Labs/Mics: Laboratory Tests 04/24/18 0720: Anion Gap 9, Estimated GFR 56 L, BUN/Creatinine Ratio 41.5 H, PT 32.7 H, INR 2.97 H Assessment/Plan Assessment: Patient is a 62-year-old male with a PMH significant for A. fib, left lower extremity DVT, CAD status post PCI, HLD, chronic venous insufficiency, PVD on 2 L O2 baseline, type 2 diabetes mellitus who presented to [facility] complaining of worsening shortness of breath, he was referred into the ED by Dr. Zhu from the wound care center. Patient is admitted to the telemetry floor for management of the followin. RL Acute increase in BUN and Cr from baseline of 0.9 to 1.7. Patient was previously on IV lasix and then switched to bumex. Patient also got ketoralac IV 30 mg x 2 which may have precipitated his RL in the setting of diuresis. Cr has decreased slighly to 1.3. Renal ultrasound was obtained which shows no hydronephrosis and normal appearing kidneys. - will avoid nephrotoxic medications - strict I/O - nephrology consulted - continue bumex at 1mg daily - will continue to monitor creatinine 2. Lower extremity pain Patient continues to have lower extremity pain. Was placed on long acting oxy. Continue percocet(lower dose from home). - continue gabapentin - percocet q6h PRN - oxycontin 15mg BID 3. Dyspnea, multifactorial Patient's wheezing is improving with breathing treatments. Continues to have dyspnea on exertion however appears to be improving slightly. -Bumex 1mg PO daily -Continue TRC/nebs, continue Mucinex twice daily -Continue to hold steroids for now -Patient is to follow up outpatient with Dr. Worthy for further evaluation and treatment of TOMASZ -Cardiology and pulmonology on board. Appreciate recommendations. - Start on digoxin 0.25 mg daily per cardiology. 4. Subtherapeutic INR- now therapeutic -Home dose is 10 mg -Monitor INR and dose coumadin as needed to maintain INR between 2-3 5. Incidental hepatic mass - will need further imaging. Multiple discussions with the patient on possible avenues. Due to patient's RL will hold off at this point as he will likley require contrast. #Chronic medical problems including A. fib, CAD, DM, HTN - Continue home medical regimen - Hold oral hypoglycemics - Accu-Cheks 3 times daily before meals and at bedtime, - Continue NovoLog sliding increased dosage today due to uncontrolled blood sugars - Continue Levemir 30 units twice daily as his fingerstick glucose readings were elevated overnight Diet: Diabetic, sodium restriction DVT prophylaxis: coumadin, Alps CODE STATUS: Full code Problem List: 1. Lower extremity edema 2. CHF (congestive heart failure) Pain Ratin Pain Location: Back, lower extremity Pain Goal: Pain 7 or less Pain Plan: Pain pathway Tomorrow's Labs & Rationales: BEP(AKA, Lasix)
--- NOTE | 2018-04-24 14:35 | PN- Cardiology ---
Subjective Subjective: * Patient remains severely short of breath with orthopnea and leg swelling. * atrial fibrillation * creatinine 1.3 Objective Vital Signs and I&Os Vital Signs Date Time Temp Pulse Resp B/P B/P Pulse O2 O2 Flow FiO2 Mean Ox Delivery Rate 04/24 1118 95 Nasal 2.5L Cannula 04/24 0848 88 130/68 04/24 0848 88 130/68 04/24 0800 97 Nasal 2.5L Cannula 04/24 0643 98.3 86 20 130/68 95 Nasal Cannula 04/24 0630 95 Nasal 2.5L Cannula 04/24 0000 Nasal 2.5L Cannula 04/23 2334 98.1 80 20 118/60 94 Nasal Cannula 04/23 2203 80 110/48 04/23 1652 93 Nasal 2.0L Cannula Intake & Output 04/24 1600 04/24 0800 04/24 0000 04/23 1600 04/23 0800 04/23 0000 Intake Total 841 413 7732 Output Total 800 5979 414 5165 1275 1800 Balance -800 -1800 -900 -1180 -475 -800 Intake, Oral 920 327 3517 Number 1 0 Bowel Movements Output, Urine 800 5999 584 7234 1275 1800 Patient 318 lb Weight Weight Chair scale Measurement Method Physical Exam: General: WD/obese male in NAD; alert and oriented x 3 Neck: no obvious JVD Heart: irregularly irregular Lungs: clear bilaterally Extremities: 2+ bilateral leg edema Assessment/Plan Assessment/Plan * Shortness of breath is likely multifactorial and due to a combination of obesity, lung disease and RV dysfunction. I suspect that during sleep he is significantly hypoxic due to sleep apnea and in this setting would not be expected to have ideal contractility.Encourage CPAP use. Begin digoxin at 0.125mg daily for increased RV contractility. Continue to monitor his creatinine since this medication is cleared by the kidneys. * check a TSH and free T4 * This patient is on a very large dose of Gabapentin. This is a drug that is notorious for causing peripheral edema; it is contraindicated in the setting of renal insufficiency and it is being prescribed at a higher than recommended dose. Abrupt stopping can result in seizure but I would wean this medication off or to a very low dose. Continue telemetry? Yes
[2018-04-24 15:03] VITALS: BP 90/50
--- NOTE | 2018-04-24 17:45 | PN- Att Addend ---
Attending Addendum Attending Brief Note 62M PMH CHF, COPD on 2L home O2, DM, CAD, a fib presenting with several weeks of SOB, recently seen in CHF clinic and given IV Lasix with no improvement, found to be fluid overloaded here, wheezing on exam, EKG no changes. Pain improved from yesterday. Able to ambulate, still dyspneic but improved. Leg edema improved. RUQ ultrasound shows 4.3cm hyperechoic lesion. 1. Acute on chronic systolic CHF 2. COPD Exacerbation Plan - Stable for discharge home - Continue Oxycodone PRN and standing MS-contin - I/O, daily weights - Follow cardiology, pulmonary, nephrology recommendations - Nebulizer treatments - Leg compression and elevation - Continue home medications - DVT PPx - Outpatient workup for liver lesion, as patient cannot get contrast CT at this time due to creatinine, and cannot tolerate MRI due to orthopnea and back pain
[2018-04-24 21:35] VITALS: BP 132/65
[2018-04-25 07:00] VITALS: BP 117/67
[2018-04-25 08:06] VITALS: BP 117/67
--- NOTE | 2018-04-25 08:23 | PN- Housestaff ---
Subjective Follow-up For: RL Dyspnea CHF Exacerbation Tele-Events Since Last Visit: Flora with HR 76-89. No overnight events. Subjective: Patient seen and examined. He does seem happy today and wishes to go home as soon as possible. He does not give any complaints in particular. Review of Systems Constitutional: Reports: no symptoms. Objective Last 24 Hrs of Vital Signs/I&O Vital Signs Date Time Temp Pulse Resp B/P B/P Pulse O2 O2 Flow FiO2 Mean Ox Delivery Rate 04/25 0850 95 Nasal 2.5L Cannula 04/25 0806 82 117/67 04/25 0806 82 117/67 04/25 0800 98 Nasal 2.5L Cannula 04/25 0700 98.1 82 20 117/67 93 04/25 0000 Nasal 2.5L Cannula 04/24 2135 97.8 84 18 132/65 94 04/24 2120 140/75 04/24 2120 140/75 04/24 1503 97.5 83 20 90/50 93 Nasal Cannula Intake & Output 04/25 1600 04/25 0800 04/25 0000 Intake Total 60 450 Output Total 650 200 Balance -590 250 Intake, Oral 60 450 Number 1 Bowel Movements Output, Urine 650 200 Physical Exam General Appearance: Alert, Oriented X3, Cooperative, Mild Distress Skin: No Rashes, No Breakdown Skin Temp/Moisture Exam: Warm/Dry Sepsis Skin Exam (color): Normal for Ethnicity HEENT: Atraumatic Cardiovascular: Normal S1, Normal S2, No Murmurs Lungs: Normal Air Movement Abdomen: Soft, No Tenderness, distended Neurological: Normal Speech Extremities: b/l lower extremity edema, legs in liza wraps Last 24 Hrs of Lab/[place] Results Last 24 Hrs of Labs/Mics: Laboratory Tests 04/25/18 0623: Anion Gap 8, Estimated GFR 51 L, BUN/Creatinine Ratio 35.0 H Assessment/Plan Assessment: 62-year-old male with a PMH significant for A. fib, left lower extremity DVT, CAD status post PCI, HLD, chronic venous insufficiency, PVD on 2 L O2 baseline, type 2 diabetes mellitus who presented to [facility] complaining of worsening shortness of breath. Assessment: 1. RL 2. Lower extremity pain 3. Dyspnea, multifactorial 4. Subtherapeutic INR - resolved Plan: * Stable to be discharged today. * He will need to continue his Bumex 1mg BID * Outpatient follow up with his cell assembly pinner. * Avoid NSAIDS for RL * Continue gabapentin for his chronic pain. This will likely need to be tapered off slowly as it could be contributing to his lower extremity edema. To be done as outpatient if deemed appropriate by his cell assembly pinner. * TRC/Nebs as needed. * INR is therapeutic. He can continue home dose Coumadin 10mg today. * Diet: Diabetic with 2g Na restriction * DVT Prophylaxis: Coumadin, ALPS * Code: Full Code Problem List: 1. Lower extremity edema Pain Ratin Pain Location: none Pain Goal: Remain pain free Pain Plan: none Tomorrow's Labs & Rationales: none
--- NOTE | 2018-04-27 17:25 | Discharge Summary ---
Visit Information Visit Dates Admission Date: 04/13/18 Discharge Date: 04/25/18 Hospital Course Course Attending Physician: Jodie Guajardo MD Primary Care Physician: Patient Has No Primary Care Dr Allergies: Coded Allergies: NO KNOWN ALLERGIES (UNKNOWN 04/06/17) Discharge Instructions Medications at Discharge Discharge Medications: Stop taking the following medications: Nystatin (Nystatin) 100,000 UNIT/GRAM CREAM..G. On the skin TWICE DAILY Qty = 2 Guaifenesin (Guaifenesin ER) 600 MG TAB.ER.12H ORAL TWICE DAILY Qty = 10 Furosemide (Furosemide) 40 MG TABLET ORAL TWICE DAILY Qty = 90 Continue taking these medications: Gabapentin (Gabapentin) 600 MG TABLET 1 Tablet ORAL THREE TIMES DAILY Comments: Last Taken:04/25/18 Time: 0536 AM Amiodarone (Cordarone) 200 MG TABLET 1 Tablet ORAL DAILY Comments: Last Taken: 04/25/18 Time: 0806 AM Fenofibrate (Fenofibrate) 160 MG TABLET 1 Tablet ORAL DAILY Comments: Last Taken:04/25/18 Time:0806 AM Potassium Chloride (Potassium Chloride) 10 MEQ CAPSULE.ER 1 Capsule ORAL DAILY Comments: Last Taken:03/09/18 Time:0756 Lisinopril (Prinivil) 5 MG TABLET 1 Tablet ORAL DAILY Comments: NOT GIVEN Levalbuterol HCl (Levalbuterol HCl) 1.25 MG/3 ML VIAL.NEB 1 Inhalation ORAL Every 4 hours Qty = 75 Comments: Last Taken:04/25/18 Time:0749 AM Polyethylene Glycol 3350 (Miralax) 119 GM POWDER 17 Gram ORAL AT BEDTIME as needed for CONSTIPATION Days = 30 Comments: Last Taken:04/24/18 Time:0848 AM Docusate Sodium (Colace) 100 MG CAPSULE 1 Capsule ORAL TWICE DAILY as needed for Constipation Qty = 30 Comments: Last Taken:04/25/18 Time:0806 AM Budesonide/Formoterol Fumarate (Symbicort 160-4.5 Mcg Inhaler) 10.2 GM HFA.AER.AD 2 Puff Inhale through mouth TWICE DAILY Days = 30 Comments: Last Taken:04/25/18 Time:0806 AM Metformin HCl (Metformin HCl) 850 MG TABLET 850 Milligram ORAL 0800,1700 Days = 30 Comments: NOT GIVEN THIS ADMISSION Insulin Detemir (Levemir Flextouch) 100 UNIT/ML (3 ML) INSULN.PEN 30 Units Inject into fatty tissue TWICE DAILY Comments: Last Taken:04/25/18 Time:0806 AM Warfarin Sodium (Coumadin) 10 MG TABLET 1 Tablet ORAL SuMoTuThFrSa Qty = 90 Instructions: Please dose Coumadin based upon the INR. Comments: Last Taken:04/23/18 Time:509 PM Carvedilol (Carvedilol) 25 MG TABLET 1 Tablet ORAL TWICE DAILY Qty = 180 Comments: Last Taken:04/25/18 TiME:0808 AM Atorvastatin Calcium (Atorvastatin Calcium) 40 MG TABLET 1 Tablet ORAL DAILY Qty = 90 Comments: Last Taken:04/24/18 Time: 512 PM Aspirin (Ecotrin*) 81 MG TABLET. 1 Tablet ORAL DAILY Comments: Last Taken 04/25/18 Time:0806 AM Cyanocobalamin (Vitamin B-12) (Vitamin B-12) 2,000 MCG TABLET 1 Tablet ORAL DAILY Comments: Last Taken:04/25/18 Time:0806 AM Cholecalciferol (Vitamin D3) (Vitamin D) 2,000 UNIT TABLET 1 Tablet ORAL DAILY Comments: NOT GIVEN Oxycodone HCl (Oxycodone HCl) 10 MG TABLET 10 Milligram ORAL THREE TIMES DAILY Comments: NOT GIVEN Magnesium Chloride (Slow-Mag) 71.5 MG TABLET. 64 Milligram ORAL DAILY Qty = 30 Comments: Last Taken:04/25/18 Time:0808 AM Insulin Lispro (Humalog) (Unknown Strength) VIAL Unknown Dose Inject into fatty tissue SEE SLIDING SCALE Comments: NOT GIVEN Start taking the following new medications: Bumetanide (Bumetanide) 1 MG TABLET 1 Milligram ORAL TWICE DAILY Qty = 60 No Refills Comments: Last Taken:04/25/18 Time:0808 AM
== END 2018-04-25 10:05 | disposition home health service (06) | DRG 292 ==
LOC: ERH 11:17 → 1NO 17:01 → ERHI 17:01 → ENRESERV 18:07 → ENTRNSPT 20:20 → 1NO 20:39 → EDTRNSPTSTS 20:48 → EDTRNSPT 20:48 → CMPTRNSPT 20:59 → 1NO 04-16 21:00 → ENPENDDIS 04-25 09:09 → ENTRNSPT 04-25 09:56 → EDTRNSPTSTS 04-25 09:57 → 1NO 04-25 10:05 → CMPTRNSPT 04-25 10:12
PROVIDERS: Dermatology; Internal Medicine; Physician Assistant; Preventive Medicine Public Health & General Preventive Medicine; Student in an Organized Health Care Education/Training Program
DX: I11.0 Hypertensive heart disease with heart failure (principal); J44.1 Chronic obstructive pulmonary disease with (acute) exacerbation; N17.9 Acute kidney failure, unspecified; Z68.41 Body mass index [BMI] 40.0-44.9, adult; I27.29 Other secondary pulmonary hypertension; E11.65 Type 2 diabetes mellitus with hyperglycemia; R16.0 Hepatomegaly, not elsewhere classified; L97.929 Non-pressure chronic ulcer of unspecified part of left lower leg with unspecified severity; L97.919 Non-pressure chronic ulcer of unspecified part of right lower leg with unspecified severity; I42.9 Cardiomyopathy, unspecified; Z99.81 Dependence on supplemental oxygen; Z79.01 Long term (current) use of anticoagulants; R09.02 Hypoxemia; I48.2 Chronic atrial fibrillation; E66.9 Obesity, unspecified; I50.33 Acute on chronic diastolic (congestive) heart failure; I25.10 Atherosclerotic heart disease of native coronary artery without angina pectoris; I73.9 Peripheral vascular disease, unspecified; Z98.61 Coronary angioplasty status; I87.2 Venous insufficiency (chronic) (peripheral); Z79.4 Long term (current) use of insulin; E78.5 Hyperlipidemia, unspecified; I25.2 Old myocardial infarction; G47.33 Obstructive sleep apnea (adult) (pediatric); Z90.49 Acquired absence of other specified parts of digestive tract; Z96.652 Presence of left artificial knee joint; Z86.718 Personal history of other venous thrombosis and embolism
CPT/HCPCS: 1NP; 36415; 36592; 71046; 76775; 81003; 82436; 87070; 87071; 93005; 93010; 96374; 96375; 99291; J1650; J1885; J1940; J2930; J3490

== ENCOUNTER 2018-06-19 15:35 | Inpatient (IN) | payer OTHER ==
[~2018-06-19] VITALS: Ht 182.9 cm; Wt 140.7 kg
[~2018-06-19 15:35] MED LIST changes: +BUMETANIDE1 M1 PO; +HUMALOG100 UNIT/2 SC
[2018-06-19] MEDS ORDERED: LASIX40 M1 PO (16:25)
[2018-06-19] MEDS ORDERED: IPRAT-ALBUT 0.5-3 ML INH (16:27)
--- NOTE | 2018-06-19 16:46 | ED GENERAL ADULT ---
History of Present Illness General Chief Complaint: Epistaxis/Nasal Foreign Body Stated Complaint: NOSE BLEED, ON COUMADIN Source: patient, old records Exam Limitations: no limitations Vital Signs & Intake/Output Vital Signs & Intake/Output Vital Signs Date Time Temp Pulse Resp B/P B/P Pulse O2 O2 Flow FiO2 Mean Ox Delivery Rate 06/19 1715 Room Air 06/19 1544 98.0 88 16 106/71 94 Room Air Allergies Coded Allergies: NO KNOWN ALLERGIES (UNKNOWN 04/06/17) Reconcile Medications Amiodarone (Cordarone) 200 MG TABLET 1 TAB PO DAILY AFIB (Reported) Aspirin (Ecotrin*) 81 MG TABLET.DR 1 TAB PO DAILY HEART/BLOOD (Reported) Atorvastatin Calcium 40 MG TABLET 1 TAB PO DAILY CHOLESTEROL (Reported) Budesonide/Formoterol Fumarate (Symbicort 160-4.5 Mcg Inhaler) 10.2 GM HFA.AER.AD 2 PUF INH BID COPD Carvedilol 25 MG TABLET 1 TAB PO BID HEART (Reported) Cholecalciferol (Vitamin D3) (Vitamin D) 2,000 UNIT TABLET 1 TAB PO DAILY SUPPLEMENT (Reported) Cyanocobalamin (Vitamin B-12) (Vitamin B-12) 2,000 MCG TABLET 1 TAB PO DAILY SUPPLEMENT (Reported) Docusate Sodium (Colace) 100 MG CAPSULE 1 CAP PO BID PRN Constipation Fenofibrate 160 MG TABLET 1 TAB PO DAILY CHOLESTEROL (Reported) Furosemide (Lasix) 40 MG TABLET 1 TAB PO BID DIURETIC (Reported) Gabapentin 600 MG TABLET 1 TAB PO TID NEUROPATHY (Reported) Insulin Detemir (Levemir Flextouch) 100 UNIT/ML (3 ML) INSULN.PEN 30 UNITS SC BID DM (Reported) Insulin Lispro (Humalog) (Unknown Strength) VIAL (Unknown Dose) SC SEE SLIDING SCALE DIABETES (Reported) Ipratropium/Albuterol Sulfate (Iprat-Albut 0.5-3(2.5) MG/3 Ml) 0.5 MG-3 MG (2.5 MG BASE)/3 ML AMPUL.NEB 1 VIAL INH 4XDAILY PRN RESP. (Reported) Lisinopril (Prinivil) 5 MG TABLET 1 TAB PO DAILY HTN (Reported) Magnesium Chloride (Slow-Mag) 71.5 MG TABLET.DR 64 MG PO DAILY SUPPLEMENT Metformin HCl 850 MG TABLET 850 MG PO 0800,1700 diabetes Oxycodone HCl 10 MG TABLET 10 MG PO 4XDAILY PRN CHRONIC PAIN (Reported) Polyethylene Glycol 3350 (Miralax) 119 GM POWDER 17 GM PO AT BEDTIME PRN CONSTIPATION Potassium Chloride 10 MEQ CAPSULE.ER 1 CAP PO DAILY SUPPLEMENT (Reported) Warfarin Sodium (Coumadin) 10 MG TABLET 1 TAB PO SuMoTuThFrSa BLOOD THINNER ( Reported) Please dose Coumadin based upon the INR. Triage Note: PT TO ER C/C EPISTAXIS X 1 DAY. HAS SINCE STOPPED. TAKES COUMADIN DAILY, LAST INR CHECK APPROX 1 MONTH AGO. SHOULD WEAR 2LNC AT ALL TIMES, NOT WEARING IN TRIAGE, "BECAUSE MY NOSE IS BLEEDING". RA SAT 94%, NO ACUTE RESP DISTRESS NOTED Triage Nurses Notes Reviewed? yes HPI: Patient presents to the emergency department with 2 complaints. His first complaint is a nosebleed. Patient is on home O2 secondary to COPD. Patient states the right nose began bleeding approximately 2 hours ago however it stopped upon arrival to the emergency department. He denies any headache. He denies any recent trauma. His other complaint is purulent discharge from his left lower x-ray. Patient see his wound center and vascular surgery. Patient has a VNA. The VNA change the bandage today and it is saturated through. He states that there is a very foul odor coming from the wound. Patient states that past the surgery want to do an angiogram and that is scheduled for next week. Patient denies any fevers or chills. Past History Travel History Traveled to [place] past 21 day No Medical History Any Pertinent Medical History? see below for history Neurological: NONE EENT: NONE Cardiovascular: AFIB, CAD, CHF, chronic venous insuff, hypertension, hyperlipidemia, myocardial infarction, STENT 2003 Respiratory: bronchitis, COPD, emphysema, obstructive sleep apnea, 02 2LDEPENDENT Gastrointestinal: NONE Hepatic: NONE Renal: NONE Musculoskeletal: degen joint disease Psychiatric: NONE Endocrine: diabetes Blood Disorders: DVT LLE Cancer(s): NONE [employer]/Reproductive: NONE History of MRSA: No History of VRE: No History of CDIFF: No Surgical History Surgical History: cholecystectomy, knee replacement (left knee), status post aborted maze procedure b/l LE venous sclerotherapy Psychosocial History Who do you live with Family Services at Home Oxygen What is your primary language Armenian Tobacco Use: Quit <30 days ago ETOH Use: denies use Illicit Drug Use: denies illicit drug use Family History Family History, If Any: FATHER FH: heart attack FH: HTN (hypertension) MOTHER FH: heart attack FH: HTN (hypertension) FHx: stroke SISTER FH: breast cancer FH: CHF (congestive heart failure) Hx Contributory? No Review of Systems Review of Systems Constitutional: Reports: no symptoms. EENTM: Reports: see HPI, epistaxis. Respiratory: Reports: no symptoms. Cardiovascular: Reports: no symptoms. GI: Reports: no symptoms. Genitourinary: Reports: no symptoms. Musculoskeletal: Reports: no symptoms. Skin: Reports: see HPI. Neurological/Psychological: Reports: no symptoms. Hematologic/Endocrine: Reports: no symptoms. Immunologic/Allergic: Reports: no symptoms. All Other Systems: Reviewed and Negative Physical Exam Physical Exam General Appearance: well developed/nourished, alert, awake, anxious, mild distress Head: atraumatic, normal appearance Eyes: Bilateral: PERRL, EOMI. Ears, Nose, Throat: ACTIVER BLEEDINGFROM RIGHT ANTERIOR SEPTUM Neck: normal inspection, supple, full range of motion Respiratory: normal breath sounds, chest non-tender, no respiratory distress, lungs clear Cardiovascular: regular rate/rhythm, normal peripheral pulses Gastrointestinal: normal bowel sounds, soft, non-tender Back: normal inspection, normal range of motion Extremities: normal inspection, normal capillary refill, normal range of motion, no edema Neurologic/Psych: no motor/sensory deficits, awake, alert, oriented x 3, normal gait Skin: intact, normal color, warm/dry Lymphatic: no anterior cervical blayne Core Measures ACS in differential dx? No CVA/TIA Diagnosis: No Sepsis Present: No Sepsis Focused Exam Completed? No Progress Differential Diagnoses I considered the following diagnoses in my evaluation of the patient: [ CELLULITIS, ELECTROLYTE ABNORMALITY] Plan of Care: Orders Procedure Date/time Status Heart Healthy Diet 06/20 B Active EKG 06/19 184 Active ED Holding Orders 06/19 1845 Active Admit to inpatient 06/19 184 Active Vital Signs 06/19 184 Active Code Status 06/19 1845 Active Patient Data 06/19 1833 Active Intake & Output 06/19 1714 Active BLOOD CULTURE 06/19 1645 Active PARTIAL THROMBOPLASTIN TIME 06/19 164 Complete PROTHROMBIN TIME 06/19 1645 Complete COMPREHENSIVE METABOLIC PANEL 06/19 164 Complete CBC WITHOUT DIFFERENTIAL 06/19 1645 Complete Laboratory Tests 06/19/181707: Anion Gap 13, Estimated GFR 47 L, BUN/Creatinine Ratio 36.0 H, Glucose 116 H, Calcium 10.0, Total Bilirubin 0.7, AST 22, ALT 28, Alkaline Phosphatase 66, Total Protein 6.8, Albumin 4.0, Globulin 2.8, Albumin/Globulin Ratio 1.4, PT > 112.0 *H, INR > 10.0 *H, APTT 93 H, CBC w Diff NO MAN DIFF REQ, RBC 3.82 L, MCV 84.7, MCH 28.1, MCHC 33.1, RDW 16.7 H, MPV 7.9, Gran % 74.5, Lymphocytes % 13.5 L, Monocytes % 7.6, Eosinophils % 4.2, Basophils % 0.2, Absolute Granulocytes 4.6, Absolute Lymphocytes 0.8 L, Absolute Monocytes 0.5, Absolute Eosinophils 0.3, Absolute Basophils 0 Microbiology 06/19 1708 BLOOD: Blood Culture - RECD 06/19 1700 BLOOD: Blood Culture - RECD Diagnostic Imaging: Viewed by Me: Radiology Read. Discussed w/RAD: Radiology Read. Initial ED EKG: NSR, nonspecific ST T wave chg Prior EKG: unchanged Departure Departure Disposition: STILL A PATIENT Condition: Stable Clinical Impression Primary Impression: Cellulitis Secondary Impressions: Epistaxis, Supratherapeutic INR Referrals: Patient Has No Primary Care Dr (PCP/Family) Departure Forms: Customer Survey General Discharge Information Admission Note Spoke With: Woody Vidal MD Documentation of Exam: Documentation of any treatments & extenuating circumstances including Concerns Regarding Discharge (functional status, medication knowledge or non-compliance, living conditions, etc.) that warrant an admission rather than observation: [IV antibiotics, vitamin K, hold Coumadin, wound care consult, vascular consult] Critical Care Note Critical Care Note Critical Care Time: non-applicable
[2018-06-19 17:17] LABS: ABSOLUTE BASOPHIL COUNT 0 /CUMM (0.0-0.2); ABSOLUTE EOSINOPHIL COUNT 0.3 /CUMM (0.0-0.7); ABSOLUTE GRANULOCYTE CT 4.6 /CUMM (1.4-6.5); ABSOLUTE LYMPH COUNT 0.8 /CUMM (1.2-3.4); ABSOLUTE MONOCYTE COUNT 0.5 /CUMM (0.10-0.60); BASOPHIL % 0.2 % (0.0-2.0); EOSINOPHIL % 4.2 % (0-5); GRANULOCYTE % 74.5 % (42.2-75.2); HEMATOCRIT 32.4 % (42-52); MEAN CORPUSCULAR HGB 28.1 PG (27.0-31.0); MEAN CORPUSCULAR HGB CONC 33.1 G/DL (33.0-37.0); MEAN CORPUSCULAR VOLUME 84.7 FL (80.0-94.0); MEAN PLATELET VOLUME 7.9 FL (7.4-10.4); PLATELET COUNT 244 /CUMM (130-400); RBC DISTRIBUTION WIDTH 16.7 % (11.5-14.5); RED BLOOD CELL CT 3.82 /CUMM (4.70-6.10); WHITE BLOOD CELL COUNT 6.2 /CUMM (4.8-10.8)
[2018-06-19 17:33] LABS: PTT 93 SEC (25-37)
[2018-06-19 17:39] LABS: PT > 112.0 SEC (9.4-12.5)
--- NOTE | 2018-06-19 19:56 | History & Physical ---
See Addendum Arianne Gandara [birth year]181953: General Information and HPI History of Present Illness: 62 yo man with PMH significant for type 2 DM, Atrial fibrillation, DVT presently on Coumadin and chronic venous insufficiency and COPd on 2L home Oxygen, presents to the ED 2 hours after he got a nosebleed from his right nostril. He did not term the episode as alarming and endorses that it stopped spontaneouly. He is also concerned about his chronic ulcers as they seem to have become infected with a malodorous discharge. His left leg is covered in dressing but he doesn show pictures of his ulcers on his phone. Labs significant for bhatt INR >10.. Past History Travel History Traveled to [place] past 21 day No Medical History Neurological: NONE EENT: NONE Cardiovascular: AFIB, CAD, CHF, chronic venous insuff, hypertension, hyperlipidemia, myocardial infarction, STENT 2003 Respiratory: bronchitis, COPD, emphysema, obstructive sleep apnea, 02 2LDEPENDENT Gastrointestinal: NONE Hepatic: NONE Renal: NONE Musculoskeletal: degen joint disease Psychiatric: NONE Endocrine: diabetes Blood Disorders: DVT LLE Cancer(s): NONE PARK NATURALIST/Reproductive: NONE History of MRSA: No History of VRE: No History of CDIFF: No Isolation History: Standard Surgical History Surgical History: cholecystectomy, knee replacement (left knee), status post aborted maze procedure b/l LE venous sclerotherapy Past Family/Social History Family History Relations & Conditions if any FATHER FH: heart attack FH: HTN (hypertension) MOTHER FH: heart attack FH: HTN (hypertension) FHx: stroke SISTER FH: breast cancer FH: CHF (congestive heart failure) Psychosocial History Who Do You Live With? spouse Services at Home: Oxygen Primary Language: Amharic ETOH Use: denies use Illicit Drug Use: denies illicit drug use Living Will? no Power of Bag Filler/HCP? no Functional Ability ADLs Independent: dressing, eating, toileting, bathing. Ambulation: walker (also uses cane sometimes) IADLs Independent: shopping, housework, finances, food prep, telephone, transportation , medication admin. Review of Systems Review of Systems Constitutional: Denies: chills, fever, malaise, weakness, unexplained weight loss. EENTM: Reports: epistaxis. Denies: blurred vision, double vision, visual changes, eye pain, nasal pain. Cardiovascular: Denies: chest pain, palpitations. Respiratory: Denies: cough, hemoptysis, short of breath. GI: Denies: abdominal pain, bloating, constipation, diarrhea. Genitourinary: Denies: no symptoms. Skin: Reports: erythema, lesions. Neurological/Psychological: Reports: no symptoms. Hematologic/Endocrine: Reports: no symptoms. Exam & Diagnostic Data Last 24 Hrs of Vital Signs/I&O Vital Signs Date Time Temp Pulse Resp B/P B/P Pulse O2 O2 Flow FiO2 Mean Ox Delivery Rate 06/20 0000 96 Nasal 2.0L Cannula 06/19 2030 98.7 83 20 103/66 96 Nasal 2.0L Cannula 06/19 2019 Nasal 2.0L Cannula 06/19 1915 80 18 129/59 96 Room Air 06/19 1715 Room Air 06/19 1544 98.0 88 16 106/71 94 Room Air Intake & Output 06/20 0800 06/20 0000 06/19 1600 Intake Total 240 Output Total 400 Balance -400 240 Intake, Oral 240 Output, Urine 400 Patient 306 lb 304 lb Weight Weight Reported by Patient Reported by Patient Measurement Method Physical Exam General Appearance Alert, Oriented X3, Cooperative, No Acute Distress Skin Legs cleaned and dressed pictures reviewed. Of significant skin sloughing, multiple chronic ulcers on the left leg and foot, raised temeprature on the right leg Skin Temp/Moisture Exam: Warm/Dry Sepsis Skin Exam (color): Flushed HEENT Atraumatic, PERRLA, EOMI Neck Supple Cardiovascular Regular Rate, Normal S1, Normal S2, No Murmurs Lungs decreased air entry B/L Abdomen Normal Bowel Sounds, Soft, No Tenderness Assessment/Plan Assessment: 62 yo gentleman with PMH significant for IDDM, DVT on coumadin, multiple leg ulcers secondary to chronic venous insuffiency, and COPD on 2L home Oxygen, presents to the ED 2 hours after an episode of episstaxis which had spontaneously resolved by the time the patient came to the ED. the patient has had leg ulcers secondary to chronic venous insufficiency. The ulcer seemed to have gotten infected lately and are having a mild odorous discharge. The physical examination of the patient was essentially unremarkable except for decreased breath sounds bilaterally. Left leg if the patient was cleaned and covered in bandage the temperature of the leg seemed to be raised as compared to his right leg . INR of the patient is supratherapeutic within (> 10), there was no leukocytosis. Plan We would admit the patient to the GM floor Epistaxis Patient has supratherapeutic INR and was given vitamin K and thrombin in the ED Hold Coumadin for now. repeat INR in the morning Chronic venous insufficiency The patient is afebrile there is no evidence of raised white blood count on labs We will monitor the patient closely and start antibiotics if any sign of infection appears We will put in a wound consult Review with regular Accu-Cheks Continue with insulin sliding scale while holding metformin for now continue amiodarone, aspirin, carvedilol, gabapentin, Lipitor. DVT prophylaxis keeping in mind the supratherapeutic INR CODE STATUS: Full code As Ranked By This Provider Problem List: 1. Local infection of wound 2. Venous stasis dermatitis 3. Elevated INR 4. COPD (chronic obstructive pulmonary disease) 5. Diabetes 6. Chronic wound of extremity 7. Insulin dependent type 2 diabetes mellitus Core Measures/Misc (08/16) Acute Coronary Syndrome ACS Diagnosis: No Congestive Heart Failure Congestive Heart Failure Diagnosis No Cerebrovascular Accident CVA/TIA Diagnosis: No VTE (View Protocol) VTE Risk Factors Age>40 No Mechanical VTE Prophylaxis d/t N/A MechProphylax Ordered No VTE Pharm Prophylaxis d/t NA PharmProphylax ordered Sepsis (View protocol) Sepsis Present: No If YES complete Sepsis Event Note If YES complete Sepsis Event Note Jessica Choudhary 06/19/18 2100: General Information and HPI MD Statement: I have seen and personally examined LYNETTE SMITH and documented this H&P. The patient is a 62 year old M who presented with a patient stated chief complaint of []. Core Measures/Misc (08/16) Sepsis (View protocol) If YES complete Sepsis Event Note If YES complete Sepsis Event Note Resident Review Statement Resident Statement: examined this patient, discussed with epidemiology internship, discussed with nursing Other Findings: 62-year-old gentleman with a PMH significant for A. fib, left lower extremity DVT on coumadin, CAD status post PCI, HLD, chronic venous insufficiency, PVD, COPD on 2 L O2 baseline, insulin dependant type 2 diabetes mellitus came in for evaluation of epistaxis which occurred 2 hrs prior to admission. He also would like to address malordorous discharge from is chronic ulcers of his left big toe ,2nd and 3rd toe. On interview his epistaxis had resolved. Denies fevers, chills, shortness of breath, chest pain, palpitations, LE swelling. Vitals in ED afebrile, low normal BP, saturating 96% on 2 L NC. On Examination CVS: S1/S2, no murmurs, lungs: B/l decreased BS, Abd. soft, distended, nontender. B?L dressings on LE. (pictures seen from patients phone). ulcers with raised edges on plantar aspect of big toe, 2nd and third toes of left foot. Labs significant for supratherapeutic INR >10, no leukocytosis, Hb/Hct 10.7/32.4 normocytic. Problem list: Supratherapeutic INR-patient does not check his INR regularly Chronic toe ulcers Atrial fibrillation Coronary artery disease COPD Type 2 diabetes mellitus Plan: Admit to general medicine floor, vitals per protocol Patient was given vitamin K and thrombin in ED, will hold his Coumadin check INR in the morning No evidence of active infection [afebrile with no leukocytosis] we will hold off on antibiotics for now Wound consult Vascular consultpatient has appointment to see Dr. Hutchins on the June 29 for an arterial scan Accu-Cheks, continue his long-acting Levemir 30 twice daily, insulin sliding scale, hold metformin Continue home meds of amiodarone, aspirin, statin, carvedilol, gabapentin Pain control with his home dose of oxycodone 10 mg 4 times a day as needed, IV morphine as needed DVT prophylaxis supratherapeutic INR Full code Marcy VILLASENOR,Princess Anne 06/20/18 0010: General Information and HPI MD Statement: I have seen and personally examined LYNETTE SMITH and documented this H&P. The patient is a 62 year old M who presented with a patient stated chief complaint of [nosebleed]. Source of Information: patient Exam Limitations: no limitations Allergies/Medications Allergies: Coded Allergies: NO KNOWN ALLERGIES (UNKNOWN 04/06/17) Home Med list Amiodarone (Cordarone) 200 MG TABLET 1 TAB PO DAILY AFIB (Reported) Aspirin (Ecotrin*) 81 MG TABLET. 1 TAB PO DAILY HEART/BLOOD (Reported) Atorvastatin Calcium 40 MG TABLET 1 TAB PO DAILY CHOLESTEROL (Reported) Budesonide/Formoterol Fumarate (Symbicort 160-4.5 Mcg Inhaler) 10.2 GM HFA.AER.AD 2 PUF INH BID COPD Carvedilol 25 MG TABLET 1 TAB PO BID HEART (Reported) Cholecalciferol (Vitamin D3) (Vitamin D) 2,000 UNIT TABLET 1 TAB PO DAILY SUPPLEMENT (Reported) Cyanocobalamin (Vitamin B-12) (Vitamin B-12) 2,000 MCG TABLET 1 TAB PO DAILY SUPPLEMENT (Reported) Docusate Sodium (Colace) 100 MG CAPSULE 1 CAP PO BID PRN Constipation Fenofibrate 160 MG TABLET 1 TAB PO DAILY CHOLESTEROL (Reported) Furosemide (Lasix) 40 MG TABLET 1 TAB PO BID DIURETIC (Reported) Gabapentin 600 MG TABLET 1 TAB PO TID NEUROPATHY (Reported) Insulin Detemir (Levemir Flextouch) 100 UNIT/ML (3 ML) INSULN.PEN 30 UNITS SC BID DM (Reported) Insulin Lispro (Humalog) (Unknown Strength) VIAL (Unknown Dose) SC SEE SLIDING SCALE DIABETES (Reported) Ipratropium/Albuterol Sulfate (Iprat-Albut 0.5-3(2.5) MG/3 Ml) 0.5 MG-3 MG (2.5 MG BASE)/3 ML AMPUL.NEB 1 VIAL INH 4XDAILY PRN RESP. (Reported) Lisinopril (Prinivil) 5 MG TABLET 1 TAB PO DAILY HTN (Reported) Magnesium Chloride (Slow-Mag) 71.5 MG TABLET.DR 64 MG PO DAILY SUPPLEMENT Metformin HCl 850 MG TABLET 850 MG PO 0800,1700 diabetes Oxycodone HCl 10 MG TABLET 10 MG PO 4XDAILY PRN CHRONIC PAIN (Reported) Polyethylene Glycol 3350 (Miralax) 119 GM POWDER 17 GM PO AT BEDTIME PRN CONSTIPATION Potassium Chloride 10 MEQ CAPSULE.ER 1 CAP PO DAILY SUPPLEMENT (Reported) Warfarin Sodium (Coumadin) 10 MG TABLET 1 TAB PO SuMoTuThFrSa BLOOD THINNER ( Reported) Please dose Coumadin based upon the INR. Past History Medical History Cardiovascular: AFIB, CAD, CHF, chronic venous insuff, hypertension, hyperlipidemia, myocardial infarction Respiratory: bronchitis, COPD, emphysema, obstructive sleep apnea, 02 2LDEPENDENT Musculoskeletal: degen joint disease Endocrine: diabetes Blood Disorders: DVT LLE Surgical History Surgical History: cholecystectomy Past Family/Social History Psychosocial History Smoking Status: Former Smoker ETOH Use: denies use Illicit Drug Use: denies illicit drug use Employment History Employment Disability Review of Systems Review of Systems Constitutional: Reports: see HPI. Exam & Diagnostic Data Last 24 Hrs of Vital Signs/I&O Vital Signs Date Time Temp Pulse Resp B/P B/P Pulse O2 O2 Flow FiO2 Mean Ox Delivery Rate 06/19 2030 98.7 83 20 103/66 96 Nasal 2.0L Cannula 06/19 2019 Nasal 2.0L Cannula 06/19 1915 80 18 129/59 96 Room Air 06/19 1715 Room Air 06/19 1544 98.0 88 16 106/71 94 Room Air Intake & Output 06/20 0800 06/20 0000 06/19 1600 Intake Total 240 Output Total Balance 240 Intake, Oral 240 Patient 306 lb 304 lb Weight Weight Reported by Patient Reported by Patient Measurement Method Physical Exam General Appearance Alert, Oriented X3, Cooperative, No Acute Distress Skin Legs cleaned and dressed pictures reviewed. Of significant skin sloughing HEENT Atraumatic, PERRLA, EOMI Neck Supple, No JVD Lymphatic Axillary nl, Cervical nl Cardiovascular Regular Rate, Normal S1, Normal S2 Lungs Clear to Auscultation, Normal Air Movement Abdomen Normal Bowel Sounds, Soft, No Tenderness Neurological Normal Gait, Normal Speech Last 24 Hrs of Labs/[place]: Laboratory Tests 06/19/181707: Anion Gap 13, Estimated GFR 47 L, BUN/Creatinine Ratio 36.0 H, Glucose 116 H, Calcium 10.0, Total Bilirubin 0.7, AST 22, ALT 28, Alkaline Phosphatase 66, Total Protein 6.8, Albumin 4.0, Globulin 2.8, Albumin/Globulin Ratio 1.4, PT > 112.0 *H, INR > 10.0 *H, APTT 93 H, CBC w Diff NO MAN DIFF REQ, RBC 3.82 L, MCV 84.7, MCH 28.1, MCHC 33.1, RDW 16.7 H, MPV 7.9, Gran % 74.5, Lymphocytes % 13.5 L, Monocytes % 7.6, Eosinophils % 4.2, Basophils % 0.2, Absolute Granulocytes 4.6, Absolute Lymphocytes 0.8 L, Absolute Monocytes 0.5, Absolute Eosinophils 0.3, Absolute Basophils 0 Microbiology 06/19 1708 BLOOD: Blood Culture - RECD 06/19 1700 BLOOD: Blood Culture - RECD Core Measures/Misc (08/16) Sepsis (View protocol) If YES complete Sepsis Event Note If YES complete Sepsis Event Note Attending MD Review Statement Attending Statement Attending MD Statement: examined this patient, discuss w/resident/PA/MANAGER PUBLIC, amended to note Attending Assessment/Plan: This patient is a 62-year-old white male with a significant past medical history for A. fib, left lower extremity DVT on coumadin, CAD status post PCI, HLD, chronic venous insufficiency, PVD, COPD on 2 L O2 baseline, insulin dependant type 2 diabetes mellitus who came in for evaluation of epistaxis which occurred 2 hrs prior to admission. He has a malodorous discharge from his chronic ulcers of his left big toe,2nd and 3rd toe. The patient received thrombin to help resolve his epistaxis. The patients INR is greater than 10. The patient will be admitted for reversal of his INR, management of his peripheral vascular disease and management of his wounds. At this point the lesions are not demonstrating features of systemic infection and would hold off further antibiotics. The patients INR is supratheraputic and his lower extremities have signifciant wounds (ALPS can not be used). VTE is contraindicated inthis patient.
[2018-06-19 20:30] VITALS: BP 103/66
[2018-06-20 06:22] VITALS: BP 124/74
[2018-06-20 08:30] LABS: ABSOLUTE BASOPHIL COUNT 0 /CUMM (0.0-0.2); ABSOLUTE EOSINOPHIL COUNT 0.2 /CUMM (0.0-0.7); ABSOLUTE GRANULOCYTE CT 4.5 /CUMM (1.4-6.5); ABSOLUTE MONOCYTE COUNT 0.6 /CUMM (0.10-0.60); BASOPHIL % 0.4 % (0.0-2.0); EOSINOPHIL % 3.9 % (0-5); GRANULOCYTE % 70.6 % (42.2-75.2); HEMATOCRIT 31.8 % (42-52); MEAN CORPUSCULAR HGB 28.3 PG (27.0-31.0); MEAN CORPUSCULAR HGB CONC 33.3 G/DL (33.0-37.0); MEAN CORPUSCULAR VOLUME 85.1 FL (80.0-94.0); MEAN PLATELET VOLUME 8.4 FL (7.4-10.4); PLATELET COUNT 247 /CUMM (130-400); RBC DISTRIBUTION WIDTH 17.2 % (11.5-14.5); RED BLOOD CELL CT 3.74 /CUMM (4.70-6.10); WHITE BLOOD CELL COUNT 6.4 /CUMM (4.8-10.8)
[2018-06-20 09:29] LABS: PT 55.3 SEC (9.4-12.5)
--- NOTE | 2018-06-20 10:03 | PN- Housestaff ---
See Addendum Subjective Follow-up For: epistaxis on coumadin with supratherapeutic INR >10 Complaints: pain scale (0-10), 10/10 Subjective: Patient reports severe pain in his back and bilateral legs. He has chronic wounds on BLE for which he goes to wound care 3x/week (Dr. Zhu). He states his pain is beyond 10/10 and needs medications. He admitts to missing his coumadin clinic appointment; last INR was two weeks ago. He admits to taking Aleve at home in addition to his 30mg Percocet because his pain is not well controlled. He has a visiting RN that comes three times a week and she informed him of the dangers of taking NSAIDS while on coumadin. Denies fever, chills, n/ v/d, chest pain, SOB, abdominal pain. Of note: he sees Dr. Worthy for COPD O2 dependent 2L NC at home, and Dr. Cosby for Afib. Review of Systems Constitutional: Reports: see HPI. Objective Last 24 Hrs of Vital Signs/I&O Vital Signs Date Time Temp Pulse Resp B/P B/P Pulse O2 O2 Flow FiO2 Mean Ox Delivery Rate 06/20 1102 92 Room Air 06/20 0917 76 124/74 06/20 0800 97 Nasal 2.0L Cannula 06/20 0622 97.7 76 20 124/74 97 06/20 0000 96 Nasal 2.0L Cannula 06/19 2030 98.7 83 20 103/66 96 Nasal 2.0L Cannula 06/19 2019 Nasal 2.0L Cannula 06/19 1915 80 18 129/59 96 Room Air 06/19 1715 Room Air 06/19 1544 98.0 88 16 106/71 94 Room Air Intake & Output 06/20 1600 06/20 0800 06/20 0000 Intake Total 240 240 Output Total 850 Balance -610 240 Intake, Oral 240 240 Output, Urine 850 Patient 312 lb 306 lb Weight Weight Standing Scale Reported by Patient Measurement Method Physical Exam General Appearance: Alert, Oriented X3, Cooperative, Moderate Distress Skin: BLE with open wounds; redness; weeping serous fluid from LLE wound Skin Temp/Moisture Exam: Warm/Dry HEENT: Atraumatic, PERRLA Neck: Supple Cardiovascular: Regular Rate, Normal S1, Normal S2 Lungs: scant expiratory wheezes Abdomen: Normal Bowel Sounds, Soft, No Tenderness Extremities: see skin exam Assessment/Plan Assessment: 62 yo gentleman with PMH significant for IDDM, DVT on coumadin, multiple leg ulcers BLE 2/2 to chronic venous insuffiency vs arterial insufficiency, and COPD on 2L home Oxygen, presents to the ED 2 hours after an episode of epistaxis which had spontaneously resolved by the time the patient came to the ED. INR of the patient is supratherapeutic within (> 10), there was no leukocytosis. Admitted to the General Medicine Service for treatment of the following: Problem List: 1. Epistaxis on coumadin with supratherapeutic INR >10 2. BLE chronic wounds #Epistaxis -given vitamin K and thrombin in the ED -Hold Coumadin for now -monitor INR # BLE Chronic venous insufficiency vs arterial insufficiency -Unlikely to be infectious at this time; no leukocytosis; afebrile -continue daily wound care with xeroform/aquacel and dry kerlix wrapping -elevate to level above the heart to decrease swelling and pain. #Chronic medical problems -Continue with insulin sliding scale while holding metformin for now -continue amiodarone, aspirin, carvedilol, gabapentin, Lipitor. -COPD-TRC and monitor O2 >90% but not above 94% DVT prophylaxis keeping in mind the supratherapeutic INR CODE STATUS: Full code Problem List: 1. Elevated INR 2. Epistaxis 3. Venous stasis ulcers of both lower extremities Pain Ratin Pain Location: back BLE Pain Goal: Pain 4 or less Pain Plan: see a/p Tomorrow's Labs & Rationales: inr
[2018-06-20 15:02] VITALS: BP 106/64
[2018-06-20 22:12] VITALS: BP 112/64
[2018-06-21 06:32] VITALS: BP 126/80
--- NOTE | 2018-06-21 08:05 | PN- Housestaff ---
See Addendum Subjective Follow-up For: epistaxis and supratherapeutic INR chronic wounds BLE Complaints: pain scale (0-10), 10/10 b/l legs Subjective: Patient reports continued 10/10 pain in his legs that is not managed with medication. He states he got some relief with Roxicodone and Morphine given back to back. I explained the possible need for pain managment to follow him outpatient. He agrees his pain is unmanaged currently. He did have one episode of epistaxis yesterday that was self limited with pressure to nose. This lasted about 15minutes. Denies fever, chills, n/v/d, chest pain, SOB. Review of Systems Constitutional: Reports: see HPI. Objective Last 24 Hrs of Vital Signs/I&O Vital Signs Date Time Temp Pulse Resp B/P B/P Pulse O2 O2 Flow FiO2 Mean Ox Delivery Rate 06/21 0954 80 102/50 06/21 0910 95 Nasal 2.0L Cannula 06/21 0632 97.6 79 20 126/80 98 06/21 0000 Nasal 2.0L Cannula 06/20 2212 97.4 85 18 112/64 96 06/20 1953 95 Nasal 2.0L Cannula 06/20 1502 98.0 84 20 106/64 96 Room Air 06/20 1337 Nasal 2.0L Cannula 06/20 1102 92 Room Air Intake & Output 06/21 1600 06/21 0800 06/21 0000 Intake Total 730 Output Total 950 Balance -220 Intake, IV 10 Intake, Oral 720 Number 0 Bowel Movements Output, Urine 950 Patient 310 lb Weight Weight Bed scale Measurement Method Physical Exam General Appearance: Alert, Oriented X3, Cooperative, Moderate Distress Skin: chronic wounds BLE with dressing in place Skin Temp/Moisture Exam: Warm/Dry HEENT: Atraumatic, PERRLA, no blood in nares this morning Neck: Supple Cardiovascular: Regular Rate, Normal S1, Normal S2, No Murmurs Lungs: Clear to Auscultation Abdomen: Normal Bowel Sounds, Soft, No Tenderness, obese Extremities: see skin exam Assessment/Plan Assessment: 62 yo gentleman with PMH significant for IDDM, DVT on coumadin, multiple leg ulcers BLE 2/2 to chronic venous insuffiency vs arterial insufficiency, and COPD on 2L home Oxygen, presents to the ED 2 hours after an episode of epistaxis which had spontaneously resolved by the time the patient came to the ED. INR of the patient is supratherapeutic within (> 10), there was no leukocytosis. Admitted to the General Medicine Service for treatment of the following: Problem List: 1. Epistaxis on coumadin with supratherapeutic INR >10 2. BLE chronic wounds #Epistaxis -given vitamin K and thrombin in the ED -Coumadin will be restarted today with INR 1.6 this morning -monitor INR # BLE Chronic venous insufficiency vs arterial insufficiency -Unlikely to be infectious at this time; no leukocytosis; afebrile -continue daily wound care with aquacel and dry kerlix wrapping -elevate to level above the heart to decrease swelling and pain -Dr. Zhu has seen this morning and re-dressed wounds -Ordering arterial US BLE per his recs #Chronic medical problems -Continue with insulin sliding scale while holding metformin for now -continue amiodarone, aspirin, carvedilol, gabapentin, Lipitor. -COPD-TRC and monitor O2 >90% but not above 94% DVT prophylaxis keeping in mind the supratherapeutic INR CODE STATUS: Full code Problem List: 1. Venous stasis dermatitis 2. Chronic wound of extremity 3. Supratherapeutic INR 4. Epistaxis Pain Ratin Pain Location: legs Pain Goal: Pain 4 or less Pain Plan: see a/p Tomorrow's Labs & Rationales: inr bep
[2018-06-21 08:16] LABS: PT 21.1 SEC (9.4-12.5)
--- NOTE | 2018-06-21 10:22 | Cons- Wound Care ---
General Information and HPI Consulting Request Date of Consult: 06/21/18 Requested By: Woody Vidal MD Reason for Consult: Left lower extremity venous stasis ulcer History of Present Illness: Patient is 62-year-old morbidly obese gentleman with diabetes chronic lower extremity edema chronic renal insufficiency admitted with coagulopathy and chronic lower extremity ulcers present on admission. He's been followed in the wound care center treated with compression dressings. He's had recent edema and drainage. His white count is normal. Allergies/Medications Allergies: Coded Allergies: NO KNOWN ALLERGIES (UNKNOWN 04/06/17) Home Med List: Amiodarone (Cordarone) 200 MG TABLET 1 TAB PO DAILY AFIB (Reported) Aspirin (Ecotrin*) 81 MG TABLET.DR 1 TAB PO DAILY HEART/BLOOD (Reported) Atorvastatin Calcium 40 MG TABLET 1 TAB PO DAILY CHOLESTEROL (Reported) Budesonide/Formoterol Fumarate (Symbicort 160-4.5 Mcg Inhaler) 10.2 GM HFA.AER.AD 2 PUF INH BID COPD Carvedilol 25 MG TABLET 1 TAB PO BID HEART (Reported) Cholecalciferol (Vitamin D3) (Vitamin D) 2,000 UNIT TABLET 1 TAB PO DAILY SUPPLEMENT (Reported) Cyanocobalamin (Vitamin B-12) (Vitamin B-12) 2,000 MCG TABLET 1 TAB PO DAILY SUPPLEMENT (Reported) Docusate Sodium (Colace) 100 MG CAPSULE 1 CAP PO BID PRN Constipation Fenofibrate 160 MG TABLET 1 TAB PO DAILY CHOLESTEROL (Reported) Furosemide (Lasix) 40 MG TABLET 1 TAB PO BID DIURETIC (Reported) Gabapentin 600 MG TABLET 1 TAB PO TID NEUROPATHY (Reported) Insulin Detemir (Levemir Flextouch) 100 UNIT/ML (3 ML) INSULN.PEN 30 UNITS SC BID DM (Reported) Insulin Lispro (Humalog) (Unknown Strength) VIAL (Unknown Dose) SC SEE SLIDING SCALE DIABETES (Reported) Ipratropium/Albuterol Sulfate (Iprat-Albut 0.5-3(2.5) MG/3 Ml) 0.5 MG-3 MG (2.5 MG BASE)/3 ML AMPUL.NEB 1 VIAL INH 4XDAILY PRN RESP. (Reported) Lisinopril (Prinivil) 5 MG TABLET 1 TAB PO DAILY HTN (Reported) Magnesium Chloride (Slow-Mag) 71.5 MG TABLET.DR 64 MG PO DAILY SUPPLEMENT Metformin HCl 850 MG TABLET 850 MG PO 0800,1700 diabetes Oxycodone HCl 10 MG TABLET 10 MG PO 4XDAILY PRN CHRONIC PAIN (Reported) Polyethylene Glycol 3350 (Miralax) 119 GM POWDER 17 GM PO AT BEDTIME PRN CONSTIPATION Potassium Chloride 10 MEQ CAPSULE.ER 1 CAP PO DAILY SUPPLEMENT (Reported) Warfarin Sodium (Coumadin) 10 MG TABLET 1 TAB PO SuMoTuThFrSa BLOOD THINNER ( Reported) Please dose Coumadin based upon the INR. Past History Travel History Traveled to [place] past 21 day No Medical History Blood Transfusion Hx: No Neurological: NONE EENT: NONE Cardiovascular: AFIB, CAD, CHF, chronic venous insuff, hypertension, hyperlipidemia, myocardial infarction Respiratory: bronchitis, COPD, emphysema, obstructive sleep apnea, 02 2LDEPENDENT Gastrointestinal: NONE Hepatic: NONE Renal: NONE Musculoskeletal: degen joint disease Psychiatric: NONE Endocrine: diabetes Blood Disorders: DVT LLE Cancer(s): NONE CRIPPLE CHASER/Reproductive: NONE Surgical History Surgical History: cholecystectomy Family History Relations & Conditions If Any: FATHER FH: heart attack FH: HTN (hypertension) MOTHER FH: heart attack FH: HTN (hypertension) FHx: stroke SISTER FH: breast cancer FH: CHF (congestive heart failure) Psychosocial History Where Do You Live? Home Who Do You Live With? spouse Services at Home: Nursing, Oxygen Primary Language: Polish Smoking Status: Former Smoker ETOH Use: denies use Illicit Drug Use: denies illicit drug use Living Will? no Power of Character Actor/HCP? no Functional Ability ADLs Independent: dressing, eating, toileting, bathing. Ambulation: walker (also uses cane sometimes) IADLs Independent: shopping, housework, finances, food prep, telephone, transportation , medication admin. Employment History Employment: Disability Exam & Diagnostic Data Vital Signs and I&O Vital Signs Result Date Time B/P 102/50 06/21 0954 Pulse 80 06/21 0954 Pulse Ox 95 06/21 0910 O2 Delivery Nasal Cannula 06/21 0910 O2 Flow Rate 2.0L 06/21 0910 Temp 97.6 06/21 0632 Resp 20 06/21 0632 Intake & Output 06/21 0000 06/20 1600 06/20 0800 Intake Total 850 240 Output Total 650 850 Balance 200 -610 Intake, Oral 850 240 Output, Urine 650 850 Patient 312 lb Weight Weight Standing Scale Measurement Method There are multiple clean venous stasis ulcers over both lower extremities there is chronic brawny edema distal pulses are difficult to palpate over the left plantar second toe is a small clean ulcer measuring approximately 1 x 0.8 cm. There is no undermining sinus tracking exposed bone. There are plantar calluses on multiple toes. There are some evidence of sensory neuropathy. Assessment/Plan Impression/Plan: 62-year-old gentleman morbidly obese diabetes chronic venous insufficiency and edema in the setting of chronic renal failure is admitted with increasing edema and drainage lower extremity wounds without evidence of cellulitis. Recommend bedrest and leg elevation above his heart. Wound care Adaptic and gauze dressings. Negative fluid balance to extent his renal function will allow. Bilateral arterial ultrasound if this is not been done by vascular surgery. Consult Acknowledgment - Thank you for your consult request.
[2018-06-21 14:51] VITALS: BP 134/84
--- NOTE | 2018-06-21 20:50 | ULTRASOUND REPORT ---
EXAMINATION: US DUPLEX LOWER EXTREMITY ARTERY/GRAFT LIMITED, bilateral CLINICAL INFORMATION: Neuropathy in the legs. Left numbness and tingling. Bilateral nonhealing ulcers. COMPARISON: 04/30/2016 TECHNIQUE: Real-time ultrasound and Doppler techniques (integrating B-mode 2-D vascular images, Doppler spectral analysis and color flow Doppler imaging) were utilized to interrogate the lower extremities. FINDINGS: Right lower extremity: Common femoral artery: 136 cm/sec; triphasic waveform Superficial femoral artery proximal: 133 cm/sec; triphasic waveform Superficial femoral artery mid portion: 9.7 cm/sec; triphasic waveform Superficial femoral artery distal: 151 cm/sec; triphasic waveform Profunda artery: 118 cm/sec; biphasic waveform Popliteal artery: 81.5 cm/sec; monophasic waveform Posterior tibial artery: 67.4 cm/sec; monophasic waveform Anterior tibial artery: 69.2 cm/sec; monophasic waveform Dorsalis pedis artery: 49.1 cm/sec; monophasic waveform Left lower extremity: Common femoral artery: 141 cm/sec; monophasic waveform Superficial femoral artery proximal: 123 cm/sec; monophasic waveform Superficial femoral artery mid portion: 158 cm/sec; monophasic waveform Superficial femoral artery distal: 17.1 cm/sec; monophasic waveform Profunda artery: 65.7 cm/sec; monophasic waveform Popliteal artery: 79.0 cm/sec; monophasic waveform Posterior tibial artery: 51.9 cm/sec; monophasic waveform Anterior tibial artery: Not seen Dorsalis pedis artery: Not seen ADDITIONAL FINDINGS: None. IMPRESSION: Worsening examination on the right lower extremity now with monophasic waveforms in the outflow vessels. Similar appearance to the prior study on the left with significant outflow disease. On the prior study, the left posterior tibial artery was not seen, however it was able to be identified on the current study. Alternatively, on the current study the anterior tibial artery was unable to be seen but was seen on the prior study. Greater sensitivity and specificity can be obtained with pre-and post exercise PVRs with ARIS calculations. Also consider dedicated CTA for further anatomical detail.
[2018-06-21 21:25] VITALS: BP 110/60
[2018-06-22 07:03] VITALS: BP 129/64
--- NOTE | 2018-06-22 07:57 | PN- Housestaff ---
See Addendum Subjective Follow-up For: INR supratherapeutic chronic BLE wounds Complaints: no complaints Subjective: Patient states his pain is well controlled with Roxicodone Q4 hours and Morphine 4mg Q6 hours. He states he has had no more episodes of epistaxis. He does continue to have back pain that is chronic. Denies fever, chills, n/v/d, chest pain, SOB. Review of Systems Constitutional: Reports: see HPI. Objective Last 24 Hrs of Vital Signs/I&O Vital Signs Date Time Temp Pulse Resp B/P B/P Pulse O2 O2 Flow FiO2 Mean Ox Delivery Rate 06/22 0953 90 Room Air 06/22 0855 92 106/58 06/22 0703 98.5 97 18 129/64 91 06/22 0000 96 Nasal 2.0L Cannula 06/21 2125 98.5 80 18 110/60 93 Nasal 2.0L Cannula 06/21 2032 96 Nasal 2.0L Cannula 06/21 1451 97.9 80 18 134/84 96 Nasal 2.0L Cannula Intake & Output 06/22 1600 06/22 0800 06/22 0000 Intake Total 240 240 Output Total 300 Balance 240 -60 Intake, Oral 240 240 Output, Urine 300 Physical Exam General Appearance: Alert, Oriented X3, Cooperative, No Acute Distress Skin: chronic wounds and venous stasis/arterial insufficiency changes to BLE with daily wound care dressing in place c/d/i Skin Temp/Moisture Exam: Warm/Dry HEENT: Atraumatic, PERRLA Neck: Supple Cardiovascular: Regular Rate, Normal S1, Normal S2 Lungs: Clear to Auscultation Abdomen: Normal Bowel Sounds, Soft, No Tenderness, obese Extremities: see skin exam Assessment/Plan Assessment: 62 yo gentleman with PMH significant for IDDM, DVT on coumadin, multiple leg ulcers BLE 2/2 to chronic venous insuffiency vs arterial insufficiency, and COPD on 2L home Oxygen, presents to the ED 2 hours after an episode of epistaxis which had spontaneously resolved by the time the patient came to the ED. INR of the patient is supratherapeutic within (> 10), there was no leukocytosis. Admitted to the General Medicine Service for treatment of the following: Problem List: 1. Epistaxis on coumadin with supratherapeutic INR >10 2. BLE chronic wounds 3. Chronic pain #Epistaxis -given vitamin K and thrombin in the ED -Coumadin will be restarted today with INR 1.66 this morning -Will give coumadin 10mg today -monitor INR # BLE Chronic venous insufficiency vs arterial insufficiency -Unlikely to be infectious at this time; no leukocytosis; afebrile -continue daily wound care with aquacel and dry kerlix wrapping -elevate to level above the heart to decrease swelling and pain -Dr. Zhu has seen this morning and re-dressed wounds; recommends formal Vascular Surgery consult. -BLE arterial US: mixed picture when compared to previous study. Not helpful in evaluation of condition #Chronic pain -well controlled inpatient with roxicodone 10mg [id number] and morphine sulfate 4mg [id number]. -Dr. Cosby prescribing outpatient pain regiment. Dr. Yip spoke to Dr. Cosby and decision to increase daily Percocet to 10mg QID when discharge. Will follow up with Dr. Cosby as an outpatient for continued pain management and primary care. #Chronic medical problems -Continue with insulin sliding scale while holding metformin for now -continue amiodarone, aspirin, carvedilol, gabapentin, Lipitor. -COPD-TRC and monitor O2 >90% but not above 94% DVT prophylaxis keeping in mind the supratherapeutic INR CODE STATUS: Full code Problem List: 1. Supratherapeutic INR 2. Chronic wound of extremity Pain Ratin Pain Location: none Pain Goal: Remain pain free Pain Plan: see a/p Tomorrow's Labs & Rationales: INR BEP
[2018-06-22 08:36] LABS: PT 18.2 SEC (9.4-12.5)
--- NOTE | 2018-06-22 08:50 | PN- Wound Care ---
Subjective Subjective: Patient remains with his legs dependent. There is no evidence of cellulitis. Arterial ultrasound suggests significant peripheral vascular disease. Objective Vital Signs and I&Os Vital Signs Result Date Time Pulse Ox 91 06/22 703 B/P 129/64 06/22 703 Temp 98.5 06/22 07 Pulse 97 06/22 0703 Resp 18 06/22 07 O2 Delivery Nasal Cannula 06/22 0000 O2 Flow Rate 2.0L 06/22 0000 Intake & Output 06/22 0000 06/21 1600 06/21 0800 Intake Total 240 860 730 Output Total 300 500 950 Balance -60 360 -220 Intake, IV 60 10 Intake, Oral 240 800 720 Number 0 Bowel Movements Output, Urine 300 500 950 Patient 310 lb Weight Weight Bed scale Measurement Method Bilateral lower extremity ulcers and left toe ulcer are unchanged there is persistent edema Impression/Plan Impression/Plan Impression/Plan: 62-year-old with evidence of chronic venous ulceration left second toe pressure ulcer and complicating peripheral vascular disease. Recommend bedrest with leg elevation. Formal vascular surgery evaluation. Continue current wound care.
[2018-06-22 15:00] VITALS: BP 130/58
[2018-06-22] MEDS ORDERED: PERCOCET 10-321 EACH PO (15:28)
--- NOTE | 2018-06-22 16:11 | Patient Discharge Instructions ---
Discharge Instructions General Discharge Information You were seen/treated for: Supratherapeutic INR >10 Chronic pain 2/2 bilateral lower leg wounds You had these procedures: bilateral lower leg arterial ultrasound Watch for these problems: fever, chills, nausea, vomiting, chest pain, nose bleeds, abdominal pain Special Instructions: Please follow up with Dr. Whitley with Vascular Surgery as an outpatient. A referral has been made on your behalf. Please take all medications as prescribed and do not miss coumadin clinic appointments. Please continue a low salt diet. Diet Continue normal diet: No (as discussed: low salt) Recommended Diet: Diabetic Activity Full Activity/No Limits: Yes (as tolerated) Acute Coronary Syndrome Inclusion Criteria At DC or during hospital stay patient has or had the following: ACS DIAGNOSIS No Discharge Core Measures Meds if any: Prescribed or Continued at Discharge DAVI/ARB if EF <40% No Meds if any: NOT Prescribed or Continued at Discharge Congestive Heart Failure Inclusion Criteria At DC or during hospital stay patient has or had the following: CHF DIAGNOSIS No Discharge Core Measures Meds if any: Prescribed or Continued at Discharge Meds if any: NOT Prescribed or Continued at Discharge Cerebrovascular accident Inclusion Criteria At DC or during hospital stay patient has or had the following: CVA/TIA Diagnosis No Discharge Core Measures Meds if any: Prescribed or Continued at Discharge Meds if any: NOT Prescribed or Continued at Discharge Venous thromboembolism Inclusion Criteria VTE Diagnosis No VTE Type NONE VTE Confirmed by (Test) NONE Discharge Core Measures - Per Current guidelines, there needs to be overlap - treatment for the first 5 days of Warfarin therapy. - If discharged on Warfarin prior to 5 days of - overlap therapy, the patient will need to be - assessed for post discharge needs including - *Post discharge parental anticoagulation - *Warfarin and/or parental anticoagulation education - *Follow up date to check INR post discharge At least 5 days overlap therapy as Inpatient No Meds if any: Prescribed or Continued at Discharge Note: Overlap Therapy is Warfarin and Anticoagulant Meds if any: NOT Prescribed or Continued at Discharge
[2018-06-22 16:50] VITALS: BP 130/58
[2018-06-22 20:29] VITALS: BP 110/64
--- NOTE | 2018-06-23 07:57 | PN- Housestaff ---
Subjective Follow-up For: INR supratherapeutic chronic BLE wounds Complaints: no complaints Subjective: Patient rested okay last night. He is unable to tolerate laying in bed with his legs up. He states he cannot breathe when he lays down and has to sleep in the chair. His pain is managed with IV morphine and roxicodone. Denies any episodes of expistaxis, abdominal pain, chest pain, SOB, fever, chills. Review of Systems Constitutional: Reports: see HPI. Objective Last 24 Hrs of Vital Signs/I&O Vital Signs Date Time Temp Pulse Resp B/P B/P Pulse O2 O2 Flow FiO2 Mean Ox Delivery Rate 06/23 0824 101 110/64 06/23 0813 99 Nasal 2.0L Cannula 06/23 0000 Nasal 2.0L Cannula 06/22 2029 98.2 101 20 110/64 95 Nasal 2.0L Cannula 06/22 1920 93 Nasal 2.0L Cannula 06/22 1650 98.4 88 20 130/58 93 Nasal Cannula 06/22 1500 98.4 72 20 130/58 93 Nasal Cannula 06/22 0953 90 Room Air Intake & Output 06/23 1600 06/23 0800 06/23 0000 Intake Total 480 800 Output Total 600 500 Balance -120 300 Intake, Oral 480 800 Output, Urine 600 500 Physical Exam General Appearance: Alert, Oriented X3, Cooperative, No Acute Distress Skin: BLE with chronic venous stasis and arterial insufficiency wounds with dressing in place c/d/i Skin Temp/Moisture Exam: Warm/Dry HEENT: Atraumatic, PERRLA Neck: Supple Cardiovascular: Regular Rate, Normal S1, Normal S2 Lungs: Clear to Auscultation Abdomen: Normal Bowel Sounds, Soft, No Tenderness, obese Extremities: see skin exam Assessment/Plan Assessment: 62 yo gentleman with PMH significant for IDDM, DVT on coumadin, multiple leg ulcers BLE 2/2 to chronic venous insuffiency vs arterial insufficiency, and COPD on 2L home Oxygen, presents to the ED 2 hours after an episode of epistaxis which had spontaneously resolved by the time the patient came to the ED. INR of the patient is supratherapeutic within (> 10), there was no leukocytosis. Admitted to the General Medicine Service for treatment of the following: Problem List: 1. Epistaxis on coumadin with supratherapeutic INR >10 2. BLE chronic wounds 3. Chronic pain #Epistaxis -given vitamin K and thrombin in the ED -Coumadin restarted with INR 1.55 this morning -Coumadin 10mg 06/22; INR 1.55 on 06/23; will dose coumadin 13mg today -monitor INR # BLE Chronic venous insufficiency vs arterial insufficiency -Unlikely to be infectious at this time; no leukocytosis; afebrile -continue daily wound care with aquacel and dry kerlix wrapping -elevate to level above the heart to decrease swelling and pain -Dr. Zhu has seen this morning and re-dressed wounds; recommends formal Vascular Surgery consult: will give referral for outpatient work up. -BLE arterial US: mixed picture when compared to previous study. Not helpful in evaluation of condition #Chronic pain -well controlled inpatient with roxicodone 10mg [id number] and morphine sulfate 4mg [id number]. -Dr. Cosby prescribing outpatient pain regiment. Dr. Yip spoke to Dr. Cosby and decision to increase daily Percocet to 10mg QID when discharge. Will follow up with Dr. Cosby as an outpatient for continued pain management and primary care. #Chronic medical problems -Continue with insulin sliding scale while holding metformin for now -continue amiodarone, aspirin, carvedilol, gabapentin, Lipitor. -COPD-TRC and monitor O2 >90% but not above 94% DVT prophylaxis keeping in mind the supratherapeutic INR CODE STATUS: Full code Problem List: 1. COPD (chronic obstructive pulmonary disease) 2. Epistaxis 3. Venous stasis ulcers of both lower extremities 4. Elevated INR Pain Ratin Pain Location: none Pain Goal: Remain pain free Pain Plan: see a/p Tomorrow's Labs & Rationales: inr bep if still here
[2018-06-23 08:24] VITALS: BP 110/64
[2018-06-23] MEDS ORDERED: COUMADIN1 M1 PO ×3 (08:41→13:59)
--- NOTE | 2018-06-23 08:52 | PN- Wound Care ---
Subjective Subjective: Patient continues with legs dependent on the floor without elevation. Drainage is decreased. Vascular surgery evaluation is pending Objective Vital Signs and I&Os Vital Signs Result Date Time B/P 110/64 06/23 824 Pulse 101 06/23 824 Pulse Ox 99 06/23 813 O2 Delivery Nasal Cannula 06/23 813 O2 Flow Rate 2.0L 06/23 813 Temp 98.2 06/22 2029 Resp 20 06/22 2029 Intake & Output 06/23 0000 06/22 1600 06/22 0800 Intake Total 800 950 240 Output Total 500 600 Balance 300 350 240 Intake, IV 50 Intake, Oral 800 900 240 Number 1 Bowel Movements Output, Urine 500 600 Patient 310 lb Weight There continues to be bilateral pitting edema.. Wounds remained clean there is no evidence of cellulitis. Impression/Plan Impression/Plan Impression/Plan: 62-year-old gentleman with chronic lower extremity edema venous stasis ulcers and probable complicating peripheral vascular disease. Patient was again counseled regarding need for effective leg elevation. Renal function is improved such that negative fluid balance should be pursued. Await vascular surgery evaluation. If unrevealing he can be placed in multilayer compression dressings
--- NOTE | 2018-06-23 13:44 | Patient Discharge Instructions ---
Discharge Instructions General Discharge Information You were seen/treated for: Supratherapeutic INR >10 Chronic pain 2/2 bilateral lower leg wounds You had these procedures: bilateral lower leg arterial ultrasound Watch for these problems: fever, chills, nausea, vomiting, chest pain, nose bleeds, abdominal pain Special Instructions: Please follow up with Dr. Whitley with Vascular Surgery as an outpatient. A referral has been made on your behalf. Please take all medications as prescribed and do not miss coumadin clinic appointments. Please continue a low salt diet. May try vaseline to nares for lubrication to avoid drying. Follow up in coumadin clinic on Thursday for INR check. Take all medications as prescribed: coumadin 12mg on 06/24 then INR test on 06/25. Diet Continue normal diet: No (as discussed: low salt) Recommended Diet: Diabetic Activity Full Activity/No Limits: Yes (as tolerated) Acute Coronary Syndrome Inclusion Criteria At DC or during hospital stay patient has or had the following: ACS DIAGNOSIS No Discharge Core Measures Meds if any: Prescribed or Continued at Discharge Meds if any: NOT Prescribed or Continued at Discharge Congestive Heart Failure Inclusion Criteria At DC or during hospital stay patient has or had the following: CHF DIAGNOSIS No Discharge Core Measures Meds if any: Prescribed or Continued at Discharge Meds if any: NOT Prescribed or Continued at Discharge Cerebrovascular accident Inclusion Criteria At DC or during hospital stay patient has or had the following: CVA/TIA Diagnosis No Discharge Core Measures Meds if any: Prescribed or Continued at Discharge Meds if any: NOT Prescribed or Continued at Discharge Venous thromboembolism Inclusion Criteria VTE Diagnosis No VTE Type NONE VTE Confirmed by (Test) NONE Discharge Core Measures - Per Current guidelines, there needs to be overlap - treatment for the first 5 days of Warfarin therapy. - If discharged on Warfarin prior to 5 days of - overlap therapy, the patient will need to be - assessed for post discharge needs including - *Post discharge parental anticoagulation - *Warfarin and/or parental anticoagulation education - *Follow up date to check INR post discharge At least 5 days overlap therapy as Inpatient No Meds if any: Prescribed or Continued at Discharge Note: Overlap Therapy is Warfarin and Anticoagulant Meds if any: NOT Prescribed or Continued at Discharge
--- NOTE | 2018-06-23 13:52 | Discharge Summary ---
Visit Information Visit Dates Admission Date: 06/19/18 Discharge Date: 06/23/18 Hospital Course Course Attending Physician: Patricio Yip MD Primary Care Physician: Mike Cosby MD [facility] Course: Mr. Johnson is a 62 yo gentleman with PMH significant for IDDM, DVT on coumadin, multiple leg ulcers BLE 2/2 to chronic venous insuffiency vs arterial insufficiency, and COPD on 2L home Oxygen, presents to the ED 2 hours after an episode of epistaxis which had spontaneously resolved by the time the patient came to the ED. INR of the patient is supratherapeutic within (> 10), there was no leukocytosis. He was admitted to the General Medicine Service for treatment of the following: Problem List: 1. Epistaxis on coumadin with supratherapeutic INR >10 2. BLE chronic wounds 3. Chronic pain Admission Data: VS: T98.0 P88 RR 16 BP 106/71 Sat 94%RA H/H 10.7/32.4 PLT 244 Cr. 1.5 INR >10 #Epistaxis treated with the following: -given vitamin K and thrombin in the ED -Coumadin restarted with INR 1.55 on day of discharge. -Coumadin 10mg 06/22; INR 1.55 on 06/23; dosed coumadin 13mg on 06/23 -Patient instructed to take Coumadin 12mg on 06/24 and follow up in coumadin clinic on Monday June 25, 2018. He will continue to see Dr. Cosby for ongoing care and management of this issue. # BLE Chronic venous insufficiency vs arterial insufficiency managed in the following manner: -Unlikely to be infectious at this time; no leukocytosis; afebrile -continue daily wound care with aquacel and dry kerlix wrapping -elevate to level above the heart to decrease swelling and pain -Dr. Zhu performed wound care throughout hospital stay; recommends Vascular Surgery: referral for outpatient work up. -BLE arterial US: Worsening examination on the right lower extremity now with monophasic waveforms in the outflow vessels. Similar appearance to the prior study on the left with significant outflow disease. On the prior study, the left posterior tibial artery was not seen, however it was able to be identified on the current study. Alternatively, on the current study the anterior tibial artery was unable to be seen but was seen on the prior study. Greater sensitivity and specificity can be obtained with pre-and post exercise PVRs with ARIS calculations. Also consider dedicated CTA for further anatomical detail. -Patient has home health services who will come apply Unna Boots to BLE upon discharge. #Chronic pain managed with the following: -well controlled inpatient with roxicodone 10mg P9qtogh and morphine sulfate 4mg Y2fgwey. -Dr. Cosby prescribing outpatient pain regiment. Dr. Yip spoke to Dr. Cosby and decision to increase daily Percocet to 10mg QID when discharge. Will follow up with Dr. Cosby as an outpatient for continued pain management and primary care. #Chronic medical problems continued on home medications while inpatient except Metformin with which he was treated on sliding scale insulin. -Will resume all home medications as prescribed upon discharge. Stable for discharge on 06/23/18 with outpatient follow up with Dr. Zhu, Dr. Cosby, and appointment at coumadin clinic 06/25/18 for repeat INR. Allergies: Coded Allergies: NO KNOWN ALLERGIES (UNKNOWN 04/06/17) Disposition Summary Disposition Principal Diagnosis: supratherapeutic INR >10 Additional Diagnosis: epistaxis chronic bilateral lower extremity wounds Discharge Disposition: home health services Discharge Instructions General Discharge Information Code Status: Full Code Patient's Diet: heart healthy diabetic: consistent carb Patient's Activity: as tolerated Follow-Up Instructions/Appts: Follow up with Dr. Quevedo, Dr. Cosby outpatient Coumadin clinic on Monday 06/25 for repeat INR Follow coumadin dosing recommendations Medications at Discharge Discharge Medications: Stop taking the following medications: Oxycodone HCl (Oxycodone HCl) 10 MG TABLET ORAL 4XDAILY as needed for CHRONIC PAIN Continue taking these medications: Gabapentin (Gabapentin) 600 MG TABLET 1 Tablet ORAL THREE TIMES DAILY Comments: Last Taken:06/23/18 Time: 1330 AM Amiodarone (Cordarone) 200 MG TABLET 1 Tablet ORAL DAILY Comments: Last Taken: 06/23/18 Time: 0824 AM Fenofibrate (Fenofibrate) 160 MG TABLET 1 Tablet ORAL DAILY Comments: NOT GIVEN Potassium Chloride (Potassium Chloride) 10 MEQ CAPSULE.ER 1 Capsule ORAL DAILY Comments: NOT GIVEN Lisinopril (Prinivil) 5 MG TABLET 1 Tablet ORAL DAILY Comments: NOT GIVEN Polyethylene Glycol 3350 (Miralax) 119 GM POWDER 17 Gram ORAL AT BEDTIME as needed for CONSTIPATION Days = 30 Comments: NOT GIVEN Docusate Sodium (Colace) 100 MG CAPSULE 1 Capsule ORAL TWICE DAILY as needed for Constipation Qty = 30 Comments: NOT GIVEN Budesonide/Formoterol Fumarate (Symbicort 160-4.5 Mcg Inhaler) 10.2 GM HFA.AER.AD 2 Puff Inhale through mouth TWICE DAILY Days = 30 Comments: Last Taken:06/23/18 Time:0824 AM Metformin HCl (Metformin HCl) 850 MG TABLET 850 Milligram ORAL 0800,1700 Days = 30 Comments: NOT GIVEN THIS ADMISSION Insulin Detemir (Levemir Flextouch) 100 UNIT/ML (3 ML) INSULN.PEN 30 Units SC TWICE DAILY Comments: Last Taken:06/23/18 Time:0824 Warfarin Sodium (Coumadin) 10 MG TABLET 1 Tablet ORAL SuMoTuThFr Qty = 90 Instructions: Please dose Coumadin based upon the INR. Comments: Last Taken:06/22/18 Time: 1627 PM Carvedilol (Carvedilol) 25 MG TABLET 1 Tablet ORAL TWICE DAILY Qty = 180 Comments: not given Atorvastatin Calcium (Atorvastatin Calcium) 40 MG TABLET 1 Tablet ORAL DAILY Qty = 90 Comments: Last Taken:06/23/18 Time: 0824 Aspirin (Ecotrin*) 81 MG TABLET. 1 Tablet ORAL DAILY Comments: Last Taken 04/25/18 Time:0806 AM Cyanocobalamin (Vitamin B-12) (Vitamin B-12) 2,000 MCG TABLET 1 Tablet ORAL DAILY Comments: not given Cholecalciferol (Vitamin D3) (Vitamin D) 2,000 UNIT TABLET 1 Tablet ORAL DAILY Comments: NOT GIVEN Magnesium Chloride (Slow-Mag) 71.5 MG TABLET. 64 Milligram ORAL DAILY Qty = 30 Comments: NOT GIVEN Insulin Lispro (Humalog) (Unknown Strength) VIAL Unknown Dose SC SEE SLIDING SCALE Comments: NOT GIVEN Furosemide (Lasix) 40 MG TABLET 1 Tablet ORAL TWICE DAILY Comments: NOT GIVEN Ipratropium/Albuterol Sulfate (Iprat-Albut 0.5-3(2.5) MG/3 Ml) 0.5 MG-3 MG (2.5 MG BASE)/3 ML AMPUL.NEB 1 VIAL Inhale through mouth 4XDAILY as needed for RESP. Start taking the following new medications: Warfarin Sodium (Coumadin) 1 MG TABLET 1 Tablet ORAL DAILY Qty = 30 No Refills Instructions: . Comments: Last Taken: 06/22/18 Time: 1627 Oxycodone HCl/Acetaminophen (Percocet 10-325 MG Tablet) 10 MG-325 MG TABLET 1 Tablet ORAL 4 TIMES A DAY Qty = 28 No Refills Instructions: . Comments: Last Taken: 06/23/18 Time: 1330 Copies To: Marko VILLASENOR,[employer]; Mike Cosby MD
[2018-06-23] MEDS ORDERED: PERCOCET 10-321 EACH PO (13:59)
== END 2018-06-23 14:12 | disposition home health service (06) | DRG 813 ==
LOC: ERH 15:35 → ERHI 18:45 → 2NB 18:45 → ENRESERV 19:04 → ENTRNSPT 19:47 → EDTRNSPTSTS 19:58 → EDTRNSPT 19:58 → 2NB 20:02 → CMPTRNSPT 20:23 → 2NB 06-21 14:24 → ENPENDDIS 06-23 12:18 → ENTRNSPT 06-23 14:02 → EDTRNSPTSTS 06-23 14:05 → EDTRNSPT 06-23 14:05 → 2NB 06-23 14:12 → CMPTRNSPT 06-23 14:18
PROVIDERS: Emergency Medicine; Internal Medicine
DX: D68.32 Hemorrhagic disorder due to extrinsic circulating anticoagulants (principal); Z68.41 Body mass index [BMI] 40.0-44.9, adult; T45.515A Adverse effect of anticoagulants, initial encounter; R04.0 Epistaxis; Z79.4 Long term (current) use of insulin; I87.2 Venous insufficiency (chronic) (peripheral); J44.9 Chronic obstructive pulmonary disease, unspecified; Z99.81 Dependence on supplemental oxygen; E78.5 Hyperlipidemia, unspecified; I25.2 Old myocardial infarction; Z98.61 Coronary angioplasty status; I10 Essential (primary) hypertension; I25.10 Atherosclerotic heart disease of native coronary artery without angina pectoris; Z86.718 Personal history of other venous thrombosis and embolism; Z96.652 Presence of left artificial knee joint; E11.621 Type 2 diabetes mellitus with foot ulcer; L97.529 Non-pressure chronic ulcer of other part of left foot with unspecified severity; L97.519 Non-pressure chronic ulcer of other part of right foot with unspecified severity; Z79.51 Long term (current) use of inhaled steroids; E66.01 Morbid (severe) obesity due to excess calories; Z90.49 Acquired absence of other specified parts of digestive tract; I87.8 Other specified disorders of veins
CPT/HCPCS: 2NSBP; 36415; 36592; 82436; 87040; 93005; 93010; 93925; 96374; 96375; J0696; J2270; J3490